=== PATIENT | female | born 1945 | race Caucasian/White ===

== ENCOUNTER 2018-10-21 15:47 | Inpatient (IN) | payer MEDICARE, MEDICAID ==
--- NOTE | 2018-10-21 16:08 | C.PDOC ---
History Of Present Illness 72 year old female is brought to the ED by family for evaluation of slurred speech and bilateral leg weakness since yesterday at 18:00. Family states that when patient tries to walk, she falls over because her legs are weak. Denies any other symptoms. Time Seen by Provider: 10/21/18 15:55 Chief Complaint (Nursing): Weakness/Neurological Deficit History Per: Patient, Family History/Exam Limitations: no limitations Onset/Duration Of Symptoms: Days (1) Current Symptoms Are (Timing): Still Present - Symptoms Of CVA Associated Symptoms: Impaired Speech, Decreased Ability To Walk Character Of Deficits: Left: Weakness, Right: Weakness, Leg: Weakness Past Medical History Reviewed: Historical Data, Nursing Documentation, Vital Signs Vital Signs: Last Vital Signs Temp 98.8 F 10/21/18 16:01 Pulse 88 10/21/18 16:01 Resp 20 10/21/18 16:01 BP 145/74 10/21/18 16:01 Pulse Ox 98 10/21/18 16:01 - Medical History PMH: HTN, Hypercholesterolemia, Hypothyroidism, Chronic Kidney Disease Other Surgeries: hx of surgeries - [employer] Procedures GROUP PSYCHOTHERAPY (12/14/16) INDIVIDUAL PSYCHOTHERAPY, SUPPORTIVE (12/14/16) Family History: States: No Known Family Hx - Social History Hx Alcohol Use: No Hx Substance Use: No - Immunization History Hx Tetanus Toxoid Vaccination: No Hx Influenza Vaccination: No Hx Pneumococcal Vaccination: No Review Of Systems Eyes: Negative for: Vision Change Genitourinary: Negative for: Incontinence Neurological: Positive for: Weakness (b/l legs ), Change in Speech (slurred speech ). Negative for: Headache Physical Exam - Physical Exam Appears: Non-toxic Skin: Warm, Dry, No Rash Head: Atraumatic, Normacephalic Eye(s): bilateral: Normal Inspection, PERRL, EOMI Ear(s): Bilateral: Normal Nose: Normal Oral Mucosa: Moist Neck: Supple Chest: Symmetrical Cardiovascular: Rhythm Regular Respiratory: Normal Breath Sounds, No Rales, No Rhonchi, No Wheezing Gastrointestinal/Abdominal: Soft, No Tenderness Extremity: No Pedal Edema, No Deformity, No Swelling Neurological/Psych: Oriented x3, Normal Speech, Normal Cognition, Normal Sensation (grossly intact ), Other ((-) facial droop, (-) weakness in facial muscles, 5/5 coordination b/l fingers to nose, 5/5 strength of b/l arms, 3/5 strength to b/l legs ) ED Course And Treatment - Laboratory Results Result Diagrams: 10/22/18 06:31 10/22/18 06:31 ECG: Interpreted By Me, Viewed By Me ECG Rhythm: Sinus Rhythm Interpretation Of EC:28 Normal axis. Normal intervals. No ST elevations Rate From EC O2 Sat by Pulse Oximetry: 98 (RA) Pulse Ox Interpretation: Normal - Other Rad CXR X-Ray: Viewed By Me, Read By Radiologist Interpretation: Accession No. : [id number]. Patient Name / ID : MADELINE Dunbar / [id number]. Exam Date : 10/21/2018 16:34:03 ( Approved ). Study Comment : Sex / Age : F / 72Y. Creator : Kelly De Santiago. Dictator : Raffi Mayorga MD. Ship Joiner : Lens Inserter : Raffi Mayorga MD. Approver2 : Report Date : 10/21/2018 16:36:29. My Comment : . Date of service: 10/21/2018. HISTORY: Code Stroke. COMPARISON: 12/09/2016. FINDINGS: LUNGS: No active pulmonary disease. PLEURA: No significant pleural effusion identified, no pneumothorax apparent. CARDIOVASCULAR: No radiographic findings to suggest acute or significant cardiovascular disease. Atherosclerotic calcifications identified primarily aortic arch. OSSEOUS STRUCTURES: No significant abnormalities. VISUALIZED UPPER ABDOMEN: Normal. OTHER FINDINGS: None. IMPRESSION: No active disease. No significant interval change compared to the prior examination(s). - CT Scan/US CT head Other Rad Studies (CT/US): Read By Radiologist, Radiology Report Reviewed CT/US Interpretation: Accession No. : [id number]. Patient Name / ID : MADELINE Dunbar / [id number]. Exam Date : 10/21/2018 16:09:52 ( Approved ). Study Comment : Sex / Age : F / 72Y. Creator : Cammie Cross. Dictator : Susi Blood MD. Ship Joiner : Lens Inserter : Susi Blood MD. Approver2 : Report Date : 10/21/2018 16:14:28. My Comment : . Date of service: 10/21/2018. PROCEDURE: CT HEAD WITHOUT CONTRAST. HISTORY: Code Stroke. COMPARISON: None available. TECHNIQUE: Axial computed tomography images were obtained through the head/brain without intravenous contrast. Radiation dose: Total exam DLP = 928.2 mGy-cm. This CT exam was performed using one or more of the following dose reduction techniques: Automated exposure control, adjustment of the mA and/or kV according to patient size, and/or use of iterative reconstruction technique. FINDINGS: HEMORRHAGE: No intracranial hemorrhage. BRAIN: There are mild chronic microangiopathic changes. There is no mass, mass effect or abnormal extra-axial fluid collection. There is no territorial infarction. The midline sagittal structures are normal.There are coarse atherosclerotic calcifications in the cavernous carotid arteries. VENTRICLES: There is mild age-related global parenchymal volume loss and proportionate enlargement of the ventricles and cortical sulci. CALVARIUM: There is no calvarial fracture or extracranial soft tissue swelling. PARANASAL SINUSES: Predominantly clear. MASTOID AIR CELLS: Predominantly clear. OTHER FINDINGS: None. IMPRESSION: No acute intracranial abnormality. If there is a persistent focal neurologic deficit and an ongoing clinical concern for acute infarction, an MRI of the brain without intravenous contrast would be a more sensitive modality for evaluation of hyperacute/acute ischemic infarction. CTA head/neck Other Rad Studies (CT/US): Read By Radiologist, Radiology Report Reviewed CT/US Interpretation: Accession No. : [id number]. Patient Name / ID : MADELINE Dunbar / [id number]. Exam Date : 10/21/2018 16:15:26 ( Approved ). Study Comment : Sex / Age : F / 72Y. Creator : Cammie Cross. Dictator : Anny Pringle MD. Ship Joiner : Lens Inserter : Anny Pringle MD. Approver2 : Report Date : 10/21/2018 16:30:31. My Comment : . Date of service: 10/21/2018. PROCEDURE: CT Angiography of the neck and head with contrast. HISTORY: slurred speech and weakness. COMPARISON: None. TECHNIQUE: Contiguous axial images of the neck and head were obtained from the level of the skull-base to the superior mediastinum in the arteriographic phase of enhancement. Coronal and sagittal reformats or also generated. IV contrast dose: 100 mL of Visipaque 320. Radiation dose: Total exam DLP = 449.7 mGy-cm. This CT exam was performed using one or more of the following dose reduction techniques: Automated exposure control, adjustment of the mA and/or kV according to patient size, and/or use of iterative reconstru ction technique. FINDINGS: RIGHT CAROTID ARTERIES: Common Carotid Artery: Tortuous has a normal caliber and shape otherwise. Carotid Bifurcation: Small calcification without evidence of significant stenosis. Internal Carotid Artery:Normal. External Carotid Artery (proximal branches): Normal. LEFT CAROTID ARTERIES: Common Carotid Artery: Tortuous and normal in caliber. Carotid Bifurcation: Foci of atherosclerotic calcification noted without significant stenosis. Internal Carotid Artery:Focal approximately 60 percent stenosis seen at the proximal portion of the left internal carotid artery. External Carotid Artery (proximal branches): Normal. VERTEBRAL ARTERIES: Right Vertebral Artery: Normal. Left Vertebral Artery: Normal. OTHER FINDINGS: Foci of atherosclerotic calcification. Mildly enlarged submental and right upper neck lymph nodes noted. Large heterogeneous thyroid gland with right lobe larger than the left extending to the thoracic inlet suggestive of thyroid goit er. INTERNAL CEREBRAL ARTERIES: The petrous cavernous and supraclinoid segments are patent. There is diffuse atherosclerotic calcification noted in the supraclinoid and the internal carotid terminus bilaterally without CT evidence of significant stenosis. ANTERIOR CEREBRAL ARTERIES: Unremarkable. A1 and A2 segments are widely patent. Smaller distal branches unremarkable, as visualized. MIDDLE CEREBRAL ARTERIES: Short segment of mild approximately 50 percent stenosis noted at the distal M1 of the right middle cerebral artery. The left middle cerebral artery demonstrate no focal stenosis. POSTERIOR CIRCULATION: Basilar Artery: Unremarkable. Distal Vertebral Arteries: Unremarkable. Posterior Cerebral Arteries: There is a origin of the right posterior cerebral artery supplies mainly from prominent right posterior communicated artery. Posterior Inferior Cerebellar Arteries: Unremarkable. ANEURYSM/ VASCULAR MALFORMATIONS: None. IMPRESSION: Foci of atherosclerotic calcification. Focal approximately 60 percent stenosis at the proximal left internal carotid artery. Short segment of mild approximately 50 percent stenosis seen at the distal portion of the M1 segment of right middle cerebral artery. Mild cervical lymphadenopathy right more than left. Critical Care Time - Critical Care Note Total Time (in mins): 40 Documented critical care: time excludes all time spent performing seperately billable procedures. Medical Decision Making Medical Decision Making: Plan - CTA head/neck - CT Head - EKG - Bloodwork - CXR - IV Fluids 1600- Code stroke called upon first evaluating patient given 23 hours of new neurological deficits- bilateral leg weakness and slurred speech. Spoke to radiology about CT results, no large infarct noted. 1628- Case discussed with Dr. Steen. Recommends giving aspirin, does not recommend tPA. Results discussed with patient and family. Will admit patient for further neurological evaluation. Patient and family amenable to admission. 1710- Case discussed with patient's PMD Dr. Vasquez who accepts patient to her service. Disposition - Disposition Disposition: HOSPITALIZED Disposition Time: 17:10 Condition: STABLE - Clinical Impression Clinical Impression: Slurred speech, Bilateral leg weakness, CVA (cerebral vascular accident) - Scribe Statement The provider has reviewed the documentation as recorded by the Scribe Chantell Aburto All medical record entries made by the Scribe were at my direction and personally dictated by me. I have reviewed the chart and agree that the record accurately reflects my personal performance of the history, physical exam, medical decision making, and the department course for this patient. I have also personally directed, reviewed, and agree with the discharge instructions and disposition. NIHSS Stroke Scale - Date/Time Evaluation Performed Date Performed: 10/21/18 Time Performed: 16:00 When Was NIHSS Performed: Code Stroke - How Severe is the Stroke Level of Consciousness: 0=Alert LOC to Questions: 0=Both comments correct LOC to commands: 0=Obeys both correctly Best Gaze: 0=Normal Visual: 0=No visual loss Facial: 0=Normal Motor Arm - Left: 0=No drift Motor Arm - Right: 0=No drift Motor Leg - Left: 2=Falls before 5 sec Motor Leg - Right: 2=Falls before 5 sec Limb Ataxia: 0=Absent Sensory: 0=Normal Best Language: 0=No aphasia Dysarthia: 1=Mild to moderate slurring Extinction & Inattention (Neglect): 0=Normal, no object Score: 5
[2018-10-21] MEDS ORDERED: Iodixanol 320 MG/ML 100 ML BOTTLE IV ONE (16:19)
--- NOTE | 2018-10-21 16:29 | CT ---
Date of service: 10/21/2018 PROCEDURE: CT HEAD WITHOUT CONTRAST. HISTORY: Code Stroke COMPARISON: None available. TECHNIQUE: Axial computed tomography images were obtained through the head/brain without intravenous contrast. Radiation dose: Total exam DLP = 928.2 mGy-cm. This CT exam was performed using one or more of the following dose reduction techniques: Automated exposure control, adjustment of the mA and/or kV according to patient size, and/or use of iterative reconstruction technique. FINDINGS: HEMORRHAGE: No intracranial hemorrhage. BRAIN: There are mild chronic microangiopathic changes. There is no mass, mass effect or abnormal extra-axial fluid collection. There is no territorial infarction. The midline sagittal structures are normal.There are coarse atherosclerotic calcifications in the cavernous carotid arteries. VENTRICLES: There is mild age-related global parenchymal volume loss and proportionate enlargement of the ventricles and cortical sulci. CALVARIUM: There is no calvarial fracture or extracranial soft tissue swelling. PARANASAL SINUSES: Predominantly clear. MASTOID AIR CELLS: Predominantly clear. OTHER FINDINGS: None. IMPRESSION: No acute intracranial abnormality. If there is a persistent focal neurologic deficit and an ongoing clinical concern for acute infarction, an MRI of the brain without intravenous contrast would be a more sensitive modality for evaluation of hyperacute/acute ischemic infarction. Mild chronic microangiopathic changes and mild age-related global parenchymal volume loss. Important findings were discussed with Dr. Chelo Gu in the ER on 10/21/2018 at 4:20 p.m.
[2018-10-21 16:30] LABS: BASO % 0.1 % (0.0-2.0); HEMOGLOBIN 11.4 g/dL (11.0-16.0); LYMPH # 1.5 K/uL (1.0-4.3); MEAN CELL VOLUME 87.6 fL (81.0-99.0); MEAN CORPUSCULAR HEMOGLOBIN 27.9 pg (27.0-31.0); MEAN CORPUSCULAR HGB CONC 31.8 g/dL (33.0-37.0); MEAN PLATELET VOLUME 8.9 fL (7.2-11.7); MONO # 0.3 K/uL (0.0-0.8); MONO % 6.2 % (0.0-10.0); NEUT # 3.4 K/uL (1.8-7.0); NEUT % 64.7 % (50.0-75.0); RBC 4.08 Mil/uL (3.80-5.20); RED CELL DISTRIBUTION WIDTH 16.8 % (11.5-14.5); WHITE BLOOD COUNT 5.3 K/uL (4.8-10.8)
[2018-10-21 16:36] LABS: INR 1.1; PROTHROMBIN TIME 12.5 SECONDS (9.7-12.2)
[2018-10-21 16:40] LABS: ALB/GLOB RATIO 1.1 (1.0-2.1); ALBUMIN 3.9 g/dL (3.5-5.0); ALT/SGPT 11 U/L (9-52); AST/SGOT 23 U/L (14-36); BLOOD UREA NITROGEN 56 mg/dL (7-17); CALCIUM 8.7 mg/dl (8.6-10.4); GFR NON-AFRICAN AMERICAN 12; HDL CHOLESTEROL 23 mg/dL (30-70)
--- NOTE | 2018-10-21 16:48 | RAD ---
Date of service: 10/21/2018 HISTORY: Code Stroke COMPARISON: 12/09/2016 FINDINGS: LUNGS: No active pulmonary disease. PLEURA: No significant pleural effusion identified, no pneumothorax apparent. CARDIOVASCULAR: No radiographic findings to suggest acute or significant cardiovascular disease. Atherosclerotic calcifications identified primarily aortic arch. OSSEOUS STRUCTURES: No significant abnormalities. VISUALIZED UPPER ABDOMEN: Normal. OTHER FINDINGS: None. IMPRESSION: No active disease. No significant interval change compared to the prior examination(s).
[2018-10-21] MEDS ORDERED: Sodium Chloride 0.9% 1,000 ML ONE (16:49)
[2018-10-21 16:51] LABS: LDL CHOLESTEROL 115 mg/dL (0-129)
[2018-10-21 16:57] VITALS: BMI 29.0
[2018-10-21] MEDS: Sodium Chloride 0.9% 1,000 ML IV SCH (16:57)
--- NOTE | 2018-10-21 17:01 | CT ---
Date of service: 10/21/2018 PROCEDURE: CT Angiography of the neck and head with contrast HISTORY: slurred speech and weakness COMPARISON: None. TECHNIQUE: Contiguous axial images of the neck and head were obtained from the level of the skull-base to the superior mediastinum in the arteriographic phase of enhancement. Coronal and sagittal reformats or also generated. IV contrast dose: 100 mL of Visipaque 320 Radiation dose: Total exam DLP = 449.7 mGy-cm. This CT exam was performed using one or more of the following dose reduction techniques: Automated exposure control, adjustment of the mA and/or kV according to patient size, and/or use of iterative reconstruction technique. FINDINGS: RIGHT CAROTID ARTERIES: Common Carotid Artery: Tortuous has a normal caliber and shape otherwise Carotid Bifurcation: Small calcification without evidence of significant stenosis Internal Carotid Artery:Normal. External Carotid Artery (proximal branches): Normal. LEFT CAROTID ARTERIES: Common Carotid Artery: Tortuous and normal in caliber. Carotid Bifurcation: Foci of atherosclerotic calcification noted without significant stenosis Internal Carotid Artery:Focal approximately 60 percent stenosis seen at the proximal portion of the left internal carotid artery External Carotid Artery (proximal branches): Normal. VERTEBRAL ARTERIES: Right Vertebral Artery: Normal. Left Vertebral Artery: Normal. OTHER FINDINGS: Foci of atherosclerotic calcification. Mildly enlarged submental and right upper neck lymph nodes noted. Large heterogeneous thyroid gland with right lobe larger than the left extending to the thoracic inlet suggestive of thyroid goiter. INTERNAL CEREBRAL ARTERIES: The petrous cavernous and supraclinoid segments are patent. There is diffuse atherosclerotic calcification noted in the supraclinoid and the internal carotid terminus bilaterally without CT evidence of significant stenosis ANTERIOR CEREBRAL ARTERIES: Unremarkable. A1 and A2 segments are widely patent. Smaller distal branches unremarkable, as visualized. MIDDLE CEREBRAL ARTERIES: Short segment of mild approximately 50 percent stenosis noted at the distal M1 of the right middle cerebral artery. The left middle cerebral artery demonstrate no focal stenosis. POSTERIOR CIRCULATION: Basilar Artery: Unremarkable. Distal Vertebral Arteries: Unremarkable. Posterior Cerebral Arteries: There is a origin of the right posterior cerebral artery supplies mainly from prominent right posterior communicated artery. Posterior Inferior Cerebellar Arteries: Unremarkable. ANEURYSM/ VASCULAR MALFORMATIONS: None. IMPRESSION: Foci of atherosclerotic calcification. Focal approximately 60 percent stenosis at the proximal left internal carotid artery. Short segment of mild approximately 50 percent stenosis seen at the distal portion of the M1 segment of right middle cerebral artery. Mild cervical lymphadenopathy right more than left.
[2018-10-21] MEDS ORDERED: Dextrose 5%/0.45% NS 1,000 ML IV SCH (20:00)
[2018-10-21] MEDS: (Novolog) Insulin Aspart, Recombinant 100 u/ml 10 ml vial SC SCH (21:50)
--- NOTE | 2018-10-22 00:05 | CP.PCM.CON ---
History of Present Illness - History of Present Illness History of Present Illness: 72 year old female is brought to the ED by family for evaluation of slurred speech and bilateral leg weakness since yesterday at 18:00. Family states that when patient tries to walk, she falls over because her legs are weak. Denies any other symptoms. Chief Complaint (Nursing): Weakness/Neurological Deficit History Per: Patient, Family History/Exam Limitations: no limitations Onset/Duration Of Symptoms: Days (1) Current Symptoms Are (Timing): Still Present Symptoms Of CVA Associated Symptoms: Impaired Speech, Decreased Ability To Walk Character Of Deficits: Left: Weakness, Right: Weakness, Leg: Weakness Past Medical History Reviewed: Historical Data, Nursing Documentation, Vital Signs Vital Signs: Last Vital Signs Temp 98.8 F 10/21/18 16:01 Pulse 88 10/21/18 16:01 Resp 20 10/21/18 16:01 BP 145/74 10/21/18 16:01 Pulse Ox 98 10/21/18 16:01 - Medical History PMH: HTN, Hypercholesterolemia, Hypothyroidism, Chronic Kidney Disease Other Surgeries: hx of surgeries - [facility] Procedures GROUP PSYCHOTHERAPY (12/14/16) INDIVIDUAL PSYCHOTHERAPY, SUPPORTIVE (12/14/16) Family History: States: No Known Family Hx - Social History Hx Alcohol Use: No Hx Substance Use: No - Immunization History Hx Tetanus Toxoid Vaccination: No Hx Influenza Vaccination: No Hx Pneumococcal Vaccination: No Review Of Systems Eyes: Negative for: Vision Change Genitourinary: Negative for: Incontinence Neurological: Positive for: Weakness (b/l legs ), Change in Speech (slurred speech ). Negative for: Headache Physical Exam - Physical Exam Appears: Non-toxic Skin: Warm, Dry, No Rash Head: Atraumatic, Normacephalic Eye(s): bilateral: Normal Inspection, PERRL, EOMI Ear(s): Bilateral: Normal Nose: Normal Oral Mucosa: Moist Neck: Supple Chest: Symmetrical Cardiovascular: Rhythm Regular Respiratory: Normal Breath Sounds, No Rales, No Rhonchi, No Wheezing Gastrointestinal/Abdominal: Soft, No Tenderness Extremity: No Pedal Edema, No Deformity, No Swelling Neurological/Psych: Oriented x3, Normal Speech, Normal Cognition, Normal Sensation (grossly intact ), Other ((-) facial droop, (-) weakness in facial muscles, 5/5 coordination b/l fingers to nose, 5/5 strength of b/l arms, 3/5 strength to b/l legs ) ECG Rhythm: Sinus Rhythm Interpretation Of EC:28 Normal axis. Normal intervals. No ST elevations Rate From EC O2 Sat by Pulse Oximetry: 98 (RA) Pulse Ox Interpretation: Normal CXR: IMPRESSION: No active disease. No significant interval change compared to the prior examination(s). - CT Scan/US ANTERIOR CEREBRAL ARTERIES: Unremarkable. A1 and A2 segments are widely patent. Smaller distal branches unremarkable, as visualized. CT head IMPRESSION: No acute intracranial abnormality. If there is a persistent focal neurological deficit and an ongoing clinical concern for acute infarction, an MRI of the brain without intravenous contrast would be a more sensitive modality for evaluation of hyperacute/acute ischemic infarction. ANTERIOR CEREBRAL ARTERIES: Unremarkable. A1 and A2 segments are widely patent. Smaller distal branches unremarkable, as visualized. MIDDLE CEREBRAL ARTERIES: Short segment of mild approximately 50 percent stenosis noted at the distal M1 of the right middle cerebral artery. The left middle cerebral artery demo nstrate no focal stenosis. POSTERIOR CIRCULATION: Basilar Artery: Unremarkable. Distal Vertebral Arteries: Unremarkable. Posterior Cerebral Arteries: There is a origin of the right posterior cerebral artery supplies mainly from prominent right posterior communicated artery. Posterior Inferior Cerebellar Arteries: Unremarkable. ANEURYSM/ VASCULAR MALFORMATIONS: None. IMPRESSION: Foci of atherosclerotic calcification. Focal approximately 60 percent stenosis at the proximal left internal carotid artery. Short segment of mild approximately 50 percent stenosis seen at the distal portion of the M1 segment of right middle cerebral artery. Mild cervical lymphadenopathy right more than left. IMPRESSION: Foci of atherosclerotic calcification. Focal approximately 60 percent stenosis at the proximal left internal carotid artery. Short segment of mild approximately 50 percent stenosis seen at the distal portion of the M1 segment of right middle cerebral artery. Mild cervical lymphadenopathy right more than left. Medical Decision Making Medical Decision Making: Plan - CTA head/neck - CT Head - EKG - Bloodwork - CXR - IV Fluids Disposition - Disposition Disposition: HOSPITALIZED NIHSS Stroke Scale - Date/Time Evaluation Performed Date Performed: 10/21/18 Time Performed: 16:00 When Was NIHSS Performed: Code Stroke - How Severe is the Stroke Level of Consciousness: 0=Alert LOC to Questions: 0=Both comments correct LOC to commands: 0=Obeys both correctly Best Gaze: 0=Normal Visual: 0=No visual loss Facial: 0=Normal Motor Arm - Left: 0=No drift Motor Arm - Right: 0=No drift Motor Leg - Left: 2=Falls before 5 sec Motor Leg - Right: 2=Falls before 5 sec Limb Ataxia: 0=Absent Sensory: 0=Normal Best Language: 0=No aphasia Dysarthia: 1=Mild to moderate slurring Extinction & Inattention (Neglect): 0=Normal, no object Score: 5 Past Patient History - Past Medical History & Family History Past Medical History?: Yes - Past Social History Smoking Status: Never Smoked - CARDIAC Hx Cardiac Disorders: Yes Hx Hypercholesterolemia: Yes Hx Hypertension: Yes - PULMONARY Hx Respiratory Disorders: No - NEUROLOGICAL Hx Neurological Disorder: Yes HX Cerebrovascular Accident: Yes Hx Dizziness: Yes - HEENT Hx HEENT Problems: No - RENAL Hx Chronic Kidney Disease: Yes - ENDOCRINE/METABOLIC Hx Endocrine Disorders: Yes Hx Hypothyroidism: Yes - HEMATOLOGICAL/ONCOLOGICAL Hx Blood Disorders: No - INTEGUMENTARY Hx Dermatological Problems: No - MUSCULOSKELETAL/RHEUMATOLOGICAL Hx Falls: No - GASTROINTESTINAL Hx Gastrointestinal Disorders: No - GENITOURINARY/GYNECOLOGICAL Hx Genitourinary Disorders: No - PSYCHIATRIC Hx Substance Use: No - SURGICAL HISTORY Hx Surgeries: No Other/Comment: HIP REPLACEMENT - DONT KNOW WHICH HIP - ANESTHESIA Hx Anesthesia: Yes Hx Anesthesia Reactions: No Meds Allergies/Adverse Reactions: Allergies Allergy/AdvReac Type Severity Reaction Status Date / Time No Known Allergies Allergy Unverified 10/21/18 16:03 - Medications Medications: Current Medications Aspirin (Aspirin Supp) 300 mg UT DAILY [facility] Heparin Sodium (Porcine) (Heparin) 5,000 units SC BID [facility] Last Admin: 10/21/18 21:21 Dose: Not Given Dextrose/Sodium Chloride (Dextrose 5%/0.45% Ns 1000 Ml) 1,000 mls @ 80 mls/hr IV .[id number] [facility] Last Admin: 10/21/18 20:00 Dose: 80 mls/hr Insulin Aspart (Novolog) 0 unit SC ACHS [facility]; Protocol Last Admin: 10/21/18 21:50 Dose: Not Given Physical Exam - Neurological Exam Additional comments: Mental Status: Awake, Alert, Oriented x 3, Normal memory X 3 Fluent coherent speech. Looks unhappy and depressed. Cranial Nerves II to XII: No Deficits. Motor: Normal tone Mild weakness of both lower Extremities. DTR 0/4 Toes are down going by plantar stimulation. Sensory: Reduced sensation peripherally in both UE s and LE s Cerebellar: Normal FNT Unable to perform HST or tandem walk on both sides. Stature and gait: Unable without help. Results - Vital Signs Recent Vital Signs: Last Vital Signs Temp 98.4 F 10/21/18 16:06 Pulse 80 10/21/18 17:27 Resp 20 10/21/18 17:27 BP 114/67 10/21/18 17:27 Pulse Ox 98 10/21/18 18:38 - Labs Result Diagrams: 10/22/18 06:31 10/22/18 06:31 Labs: Laboratory Results - last 24 hr 10/21/18 10/21/18 10/21/18 15:57 16:23 16:23 WBC 5.3 RBC 4.08 Hgb 11.4 Hct 35.7 MCV 87.6 MCH 27.9 MCHC 31.8 L RDW 16.8 H Plt Count 310 D MPV 8.9 Neut % (Auto) 64.7 Lymph % (Auto) 29.0 [place] % (Auto) 6.2 Eos % (Auto) 0.0 Baso % (Auto) 0.1 Neut # (Auto) 3.4 Lymph # (Auto) 1.5 [place] # (Auto) 0.3 Eos # (Auto) 0.0 Baso # (Auto) 0.0 PT 12.5 H INR 1.1 APTT 31 Sodium Potassium Chloride Carbon Dioxide Anion Gap BUN Creatinine Est GFR ( Amer) Est GFR (Non-Af Amer) POC Glucose (mg/dL) 213 H Random Glucose Hemoglobin A1c Calcium Total Bilirubin AST ALT Alkaline Phosphatase Troponin I Total Protein Albumin Globulin Albumin/Globulin Ratio Triglycerides Cholesterol LDL Cholesterol Direct HDL Cholesterol Blood Type Antibody Screen 10/21/18 10/21/18 10/21/18 16:23 16:23 16:23 WBC RBC Hgb Hct MCV MCH MCHC RDW Plt Count MPV Neut % (Auto) Lymph % (Auto) [place] % (Auto) Eos % (Auto) Baso % (Auto) Neut # (Auto) Lymph # (Auto) [place] # (Auto) Eos # (Auto) Baso # (Auto) PT INR APTT Sodium 136 Potassium 5.9 H Chloride 102 Carbon Dioxide 19 L Anion Gap 21 H BUN 56 H Creatinine 3.7 H Est GFR ( Amer) 14 Est GFR (Non-Af Amer) 12 POC Glucose (mg/dL) Random Glucose 230 H D Hemoglobin A1c 6.5 Calcium 8.7 Total Bilirubin 0.4 AST 23 ALT 11 Alkaline Phosphatase 67 Troponin I < 0.0120 Total Protein 7.5 Albumin 3.9 Globulin 3.6 Albumin/Globulin Ratio 1.1 Triglycerides 369 H D Cholesterol 184 LDL Cholesterol Direct 115 HDL Cholesterol 23 L Blood Type AB POSITIVE Antibody Screen Negative 10/21/18 21:47 WBC RBC Hgb Hct MCV MCH MCHC RDW Plt Count MPV Neut % (Auto) Lymph % (Auto) [place] % (Auto) Eos % (Auto) Baso % (Auto) Neut # (Auto) Lymph # (Auto) [place] # (Auto) Eos # (Auto) Baso # (Auto) PT INR APTT Sodium Potassium Chloride Carbon Dioxide Anion Gap BUN Creatinine Est GFR ( Amer) Est GFR (Non-Af Amer) POC Glucose (mg/dL) 112 H Random Glucose Hemoglobin A1c Calcium Total Bilirubin AST ALT Alkaline Phosphatase Troponin I Total Protein Albumin Globulin Albumin/Globulin Ratio Triglycerides Cholesterol LDL Cholesterol Direct HDL Cholesterol Blood Type Antibody Screen Assessment & Plan (1) LOUIE (acute kidney injury) Status: Acute Priority: High (2) Atrial fibrillation with RVR Status: Acute (3) Congestive cardiac failure Status: Acute (4) Depressed Status: Acute (5) Dyspnea Status: Acute Priority: Medium (6) Hyperglycemia Status: Acute Priority: High (7) Renal insufficiency Status: Acute (8) UTI (urinary tract infection) Status: Acute (9) CVA (cerebral vascular accident) Assessment and Plan: CVA vs TIA She needs a repeat of her neuroimaging CT brain was negative. Work up for CVA Status: Acute (10) Seizures Assessment and Plan: R/O Seizures Work up for Seizures. Status: Acute (11) Bilateral leg weakness Assessment and Plan: R/O LS Radiculopathy. R/O old Hip surgery as a cause may need Orthopedics consult may need MRI LS spine Status: Acute
[2018-10-22] MEDS ORDERED: hydrOXYzine HCl 25 mg/ml Inj IM ONE (01:41)
[2018-10-22 06:40] LABS: BASO % 0.2 % (0.0-2.0); HEMOGLOBIN 10.3 g/dL (11.0-16.0); LYMPH % 46.4 % (20.0-40.0); MEAN CELL VOLUME 86.6 fL (81.0-99.0); MEAN CORPUSCULAR HEMOGLOBIN 28.1 pg (27.0-31.0); MEAN CORPUSCULAR HGB CONC 32.5 g/dL (33.0-37.0); MONO # 0.4 K/uL (0.0-0.8); MONO % 9.3 % (0.0-10.0); NEUT # 1.9 K/uL (1.8-7.0); NEUT % 44.1 % (50.0-75.0); NRBC % 0.1 % (0.0-2.0); RBC 3.65 Mil/uL (3.80-5.20); WHITE BLOOD COUNT 4.2 K/uL (4.8-10.8)
[2018-10-22 06:57] LABS: ALBUMIN 3.4 g/dL (3.5-5.0); CALCIUM 8.3 mg/dl (8.6-10.4)
[2018-10-22] MEDS: (Novolog) Insulin Aspart, Recombinant 100 u/ml 10 ml vial SC SCH ×4 (08:00→21:38)
--- NOTE | 2018-10-22 11:21 | CP.PCM.HP ---
History of Present Illness - History of Present Illness History of Present Illness: pt admited from ed came in for slured speech leg weekness fals unable to walk Present on Admission - Present on Admission Any Indicators Present on Admission: Yes Review of Systems - Review of Systems Systems not reviewed;Unavailable: Acuity of Condition - Constitutional Constitutional: Fatigue, Frequent Falls - EENT Eyes: As Per HPI Ears: As Per HPI Nose/Mouth/Throat: As Per HPI - Breasts Breasts: As Per HPI - Cardiovascular Cardiovascular: As Per HPI - Respiratory Respiratory: As Per HPI - Gastrointestinal Additional comments: no apetite failed swallow evaluation - Genitourinary Additional comments: renal failiur - Reproductive: Female Reproductive:Female: As Per HPI, Post Menopausal - Menstruation Menstruation: Post Menopausal - Musculoskeletal Musculoskeletal: Abnormal Gait, Muscle Weakness, Numbness Additional comments: lower extweekness - Integumentary Integumentary: As Per HPI - Neurological Additional comments: dysarthria slured speech canot swallow - Psychiatric Psychiatric: As Per HPI - Endocrine Additional Comments: dm - Hematologic/Lymphatic Hematologic: As Per HPI Additional comments: aneamia Past Patient History - Past Medical History & Family History Past Medical History?: Yes - Past Social History Smoking Status: Never Smoked - CARDIAC Hx Cardiac Disorders: Yes Hx Hypercholesterolemia: Yes Hx Hypertension: Yes - PULMONARY Hx Respiratory Disorders: No - NEUROLOGICAL Hx Neurological Disorder: Yes HX Cerebrovascular Accident: Yes Hx Dizziness: Yes - HEENT Hx HEENT Problems: No - RENAL Hx Chronic Kidney Disease: Yes - ENDOCRINE/METABOLIC Hx Endocrine Disorders: Yes Hx Hypothyroidism: Yes - HEMATOLOGICAL/ONCOLOGICAL Hx Blood Disorders: No - INTEGUMENTARY Hx Dermatological Problems: No - MUSCULOSKELETAL/RHEUMATOLOGICAL Hx Falls: No - GASTROINTESTINAL Hx Gastrointestinal Disorders: No - GENITOURINARY/GYNECOLOGICAL Hx Genitourinary Disorders: No - PSYCHIATRIC Hx Substance Use: No - SURGICAL HISTORY Hx Surgeries: No Other/Comment: HIP REPLACEMENT - DONT KNOW WHICH HIP - ANESTHESIA Hx Anesthesia: Yes Hx Anesthesia Reactions: No Meds Allergies/Adverse Reactions: Allergies Allergy/AdvReac Type Severity Reaction Status Date / Time No Known Allergies Allergy Unverified 10/21/18 16:03 Physical Exam - Constitutional Appears: In Acute Distress - Head Exam Head Exam: ATRAUMATIC - Eye Exam Eye Exam: Normal appearance - ENT Exam ENT Exam: Mucous Membranes Moist - Neck Exam Neck exam: Positive for: Full Rom - Respiratory Exam Respiratory Exam: Clear to Auscultation Bilateral - Cardiovascular Exam Cardiovascular Exam: REGULAR RHYTHM - GI/Abdominal Exam GI & Abdominal Exam: Normal Bowel Sounds - Rectal Exam Rectal Exam: NORMAL INSPECTION - Exam Exam: NORMAL INSPECTION - Extremities Exam Additional comments: lower ext weekness - Back Exam Back exam: NORMAL INSPECTION - Neurological Exam Neurological exam: Abnormal Gait Additional comments: dysarthria canot swallow - Psychiatric Exam Psychiatric exam: Normal Affect - Skin Skin Exam: Pallor Results - Vital Signs Recent Vital Signs: Last Vital Signs Temp 98.5 F 10/22/18 07:00 Pulse 79 10/22/18 07:00 Resp 20 10/22/18 07:00 BP 107/68 10/22/18 07:00 Pulse Ox 96 10/22/18 07:00 - Labs Result Diagrams: 10/22/18 06:31 10/22/18 06:31 Labs: Laboratory Results - last 24 hr 10/21/18 10/21/18 10/21/18 15:57 16:23 16:23 WBC 5.3 RBC 4.08 Hgb 11.4 Hct 35.7 MCV 87.6 MCH 27.9 MCHC 31.8 L RDW 16.8 H Plt Count 310 D MPV 8.9 Neut % (Auto) 64.7 Lymph % (Auto) 29.0 [place] % (Auto) 6.2 Eos % (Auto) 0.0 Baso % (Auto) 0.1 Neut # (Auto) 3.4 Lymph # (Auto) 1.5 [place] # (Auto) 0.3 Eos # (Auto) 0.0 Baso # (Auto) 0.0 PT 12.5 H INR 1.1 APTT 31 Sodium Potassium Chloride Carbon Dioxide Anion Gap BUN Creatinine Est GFR ( Amer) Est GFR (Non-Af Amer) POC Glucose (mg/dL) 213 H Random Glucose Hemoglobin A1c Calcium Total Bilirubin AST ALT Alkaline Phosphatase Troponin I Total Protein Albumin Globulin Albumin/Globulin Ratio Triglycerides Cholesterol LDL Cholesterol Direct HDL Cholesterol Vitamin B12 25-OH Vitamin D Total TSH 3rd Generation Blood Type Antibody Screen 10/21/18 10/21/18 10/21/18 16:23 16:23 16:23 WBC RBC Hgb Hct MCV MCH MCHC RDW Plt Count MPV Neut % (Auto) Lymph % (Auto) [place] % (Auto) Eos % (Auto) Baso % (Auto) Neut # (Auto) Lymph # (Auto) [place] # (Auto) Eos # (Auto) Baso # (Auto) PT INR APTT Sodium 136 Potassium 5.9 H Chloride 102 Carbon Dioxide 19 L Anion Gap 21 H BUN 56 H Creatinine 3.7 H Est GFR ( Amer) 14 Est GFR (Non-Af Amer) 12 POC Glucose (mg/dL) Random Glucose 230 H D Hemoglobin A1c 6.5 Calcium 8.7 Total Bilirubin 0.4 AST 23 ALT 11 Alkaline Phosphatase 67 Troponin I < 0.0120 Total Protein 7.5 Albumin 3.9 Globulin 3.6 Albumin/Globulin Ratio 1.1 Triglycerides 369 H D Cholesterol 184 LDL Cholesterol Direct 115 HDL Cholesterol 23 L Vitamin B12 25-OH Vitamin D Total TSH 3rd Generation Blood Type AB POSITIVE Antibody Screen Negative 10/21/18 10/22/18 10/22/18 21:47 06:04 06:31 WBC RBC Hgb Hct MCV MCH MCHC RDW Plt Count MPV Neut % (Auto) Lymph % (Auto) [place] % (Auto) Eos % (Auto) Baso % (Auto) Neut # (Auto) Lymph # (Auto) [place] # (Auto) Eos # (Auto) Baso # (Auto) PT INR APTT Sodium 135 Potassium 5.1 Chloride 104 Carbon Dioxide 20 L Anion Gap 16 BUN 53 H Creatinine 3.0 H Est GFR ( Amer) 18 Est GFR (Non-Af Amer) 15 POC Glucose (mg/dL) 112 H 74 Random Glucose 86 D Hemoglobin A1c Calcium 8.3 L Total Bilirubin 0.4 AST 28 ALT 13 Alkaline Phosphatase 58 Troponin I Total Protein 6.9 Albumin 3.4 L Globulin 3.5 Albumin/Globulin Ratio 1.0 Triglycerides 269 H D Cholesterol 159 LDL Cholesterol Direct 106 HDL Cholesterol 19 L Vitamin B12 378 25-OH Vitamin D Total TSH 3rd Generation 2.33 Blood Type Antibody Screen 10/22/18 10/22/18 06:31 06:31 WBC 4.2 L RBC 3.65 L Hgb 10.3 L Hct 31.6 L MCV 86.6 MCH 28.1 MCHC 32.5 L RDW 17.0 H Plt Count 279 MPV 9.0 Neut % (Auto) 44.1 L Lymph % (Auto) 46.4 H [place] % (Auto) 9.3 Eos % (Auto) 0.0 Baso % (Auto) 0.2 Neut # (Auto) 1.9 Lymph # (Auto) 2.0 [place] # (Auto) 0.4 Eos # (Auto) 0.0 Baso # (Auto) 0.0 PT INR APTT Sodium Potassium Chloride Carbon Dioxide Anion Gap BUN Creatinine Est GFR ( Amer) Est GFR (Non-Af Amer) POC Glucose (mg/dL) Random Glucose Hemoglobin A1c Calcium Total Bilirubin AST ALT Alkaline Phosphatase Troponin I Total Protein Albumin Globulin Albumin/Globulin Ratio Triglycerides Cholesterol LDL Cholesterol Direct HDL Cholesterol Vitamin B12 25-OH Vitamin D Total 63.2 TSH 3rd Generation Blood Type Antibody Screen Assessment & Plan - Assessment and Plan (Free Text) Assessment: ac cva ac dysarthia canot swallow weekness lower ext dm crf Plan: as per orders - Date & Time Date: 10/22/18 Time: 11:27
[2018-10-22] MEDS: Sodium Chloride 0.9% 1,000 ML IV SCH ×3 (12:50→21:38)
--- NOTE | 2018-10-22 12:55 | MRI ---
Date of service: 10/22/2018 PROCEDURE: MRI BRAIN WITHOUT CONTRAST HISTORY: R/O CVA COMPARISON: Noncontrast head CT from 10/21/2018 and MRI brain without contrast from 12/02/2016. TECHNIQUE: Multiplanar, multisequence MR images of the brain were obtained without intravenous contrast enhancement. FINDINGS: HEMORRHAGE: None DWI: No evidence of an acute or early subacute infarction. BRAIN PARENCHYMA: There are mild chronic microangiopathic changes. There is no mass, mass effect or abnormal extra-axial fluid collection. There is no territorial infarction. The midline sagittal structures are normal. VENTRICLES: There is mild age-related global parenchymal volume loss and proportionate enlargement of the ventricles and cortical sulci. CRANIUM: There is normal bone marrow signal pattern. ORBITS: Grossly unremarkable. PARANASAL SINUSES/MASTOIDS: Predominantly clear. VASCULAR SYSTEM: There are normal signal voids in the larger intracranial arteries. OTHER FINDINGS: None. IMPRESSION: No acute intracranial abnormality. Mild chronic microangiopathic changes and mild age-related global parenchymal volume loss.
--- NOTE | 2018-10-22 14:18 | MRI ---
Date of service: 10/22/2018 PROCEDURE: Magnetic Resonance Angiography Brain HISTORY: CVA vs TIA COMPARISON: None available. TECHNIQUE: 3D time of flight MR angiography of the intracranial arteries was performed. Rotating maximum intensity projection images were generated. FINDINGS: INTERNAL CAROTID ARTERIES: Normal flow related signal. The skull base, petrous, cavernous and supraclinoid segments are bilaterally widely patient. ANTERIOR CEREBRAL ARTERIES: Normal flow related signal. A1 and A2 segments are widely patent. Smaller distal branches unremarkable, as visualized. The right A1 segment is hypoplastic, an anatomic variant. MIDDLE CEREBRAL ARTERIES: Normal flow related signal. M1 and M2 segments are widely patent. Perisylvian branches grossly symmetric. POSTERIOR CIRCULATION: Basilar Artery: Normal flow related signal. Normal in caliber and widely patent. Distal Vertebral Arteries: Normal flow related signal. Widely patent. There is moderate short segment stenosis in the distal left vertebral artery proximal to the basilar confluence. Posterior Cerebral Arteries: Normal flow related signal. Widely patent. Posterior Inferior Cerebellar Arteries: Normal flow related signal. Widely patent. ANEURYSM/ VASCULAR MALFORMATIONS: None. OTHER FINDINGS: None. IMPRESSION: Short segment moderate narrowing of the left distal vertebral artery proximal to the basilar confluence. No evidence of occlusion or definite significant stenosis in the anterior circulation.
[2018-10-22] MEDS ORDERED: (Novolin R) Insulin Human Regular 100 units/ml vial SC SCH (16:30)
[2018-10-22 16:59] LABS: RAPID PLASMA REAGIN NONREACTIVE (NONREACTIVE)
--- NOTE | 2018-10-22 22:19 | CP.PCM.PN ---
Subjective - Date & Time of Evaluation Date of Evaluation: 10/22/18 Time of Evaluation: 22:05 - Subjective Subjective: Patient had MRI Brain, MRA Brain, Carotid Doppler, Normal TSH, mildly high Hb A1C. She still feels weakness of both legs and walks with help. Abnormal CTA Carotids showing 60 % stenosis on the left and 50 % stenosis on the right side. A Vascular surgery consult is needed. High Triglycerides She has a History of Tingling and numbness in both legs and feet and both UE s IMPRESSION of MRI Brain w ithout contrast: No acute intracranial abnormality. Mild chronic microangiopathic changes and mild age-related global parenchymal volume loss. IMPRESSION of MRA Brain without contrast: No acute intracranial abnormality. Mild chronic microangiopathic changes and mild age-related global parenchymal volume loss. Normal Carotid Doppler. Abnormal CTA Carotids. Due to her history of bilateral hip surgery she might need an Orthopedic Consult to R/O hip problems as a cause of her difficulty walking. Due to her history of tingling and numbness she needs an MRI of LS Spine Objective - Vital Signs/Intake and Output Vital Signs (last 24 hours): Temp Pulse Resp BP Pulse Ox 98.8 F 73 20 122/82 98 10/22/18 16:50 10/22/18 16:50 10/22/18 16:50 10/22/18 16:50 10/22/18 18:24 - Medications Medications: Current Medications Aspirin (Aspirin Supp) 300 mg AL DAILY [facility] Last Admin: 10/22/18 11:08 Dose: Not Given Heparin Sodium (Porcine) (Heparin) 5,000 units SC BID [facility] Last Admin: 10/22/18 17:34 Dose: 5,000 units Sodium Chloride (Sodium Chloride 0.9%) 1,000 mls @ 80 mls/hr IV .[id number] [facility] Last Admin: 10/22/18 21:38 Dose: 80 mls/hr Insulin Aspart (Novolog) 0 unit SC ACHS [facility]; Protocol Last Admin: 10/22/18 21:38 Dose: Not Given Zolpidem Tartrate (Ambien) 5 mg PO HS PRN PRN Reason: Insomnia Last Admin: 10/22/18 21:38 Dose: 5 mg - Labs Labs: 10/22/18 06:31 10/22/18 06:31 PT 12.5 SECONDS (9.7-12.2) H 10/21/18 16:23 INR 1.1 10/21/18 16:23 APTT 31 SECONDS (21-34) 10/21/18 16:23 Assessment and Plan (1) LOUIE (acute kidney injury) Status: Acute (2) Atrial fibrillation with RVR Status: Acute (3) Congestive cardiac failure Status: Acute (4) Depressed Status: Acute (5) Dyspnea Status: Acute (6) Hyperglycemia Status: Acute (7) Renal insufficiency Status: Acute (8) UTI (urinary tract infection) Status: Acute (9) CVA (cerebral vascular accident) Status: Acute (10) Seizures Status: Acute
[2018-10-23] MEDS: Sodium Chloride 0.9% 1,000 ML IV SCH ×2 (02:41→14:00)
--- NOTE | 2018-10-23 07:29 | CP.PCM.CON ---
History of Present Illness - History of Present Illness History of Present Illness: Vascular Surgery - Dr. Anton 72 yo F who presented to [facility] on 10/21 with b/l leg weakness and slurred speech. Pt had work-up for stroke and found to have a Left proximal internal carotid artery stenosis of 60% and a short segment of 50% stenosis in the distal r MCA. Vascular surgery was consulted for the carotid stenosis. Currently pt states that she has no symptoms. Her speech is clear but she is somewhat confused as to why she came to the hospital. She denies any leg weakness and is able to move all extremities with good strength. Pt denies any complaints at this time including SOB/Chest pain/Nausea/Vomiting/Blurred v ision/Numbness/Paresthesias/Weakness/Headache. PMH: HTN, HL, Hypothyroid, CKD PSH: Hip surgery NKDA Meds as per chart Review of Systems - Review of Systems All systems: reviewed and no additional remarkable complaints except (as per HPI) Past Patient History - Past Medical History & Family History Past Medical History?: Yes - Past Social History Smoking Status: Never Smoked - CARDIAC Hx Cardiac Disorders: Yes Hx Hypercholesterolemia: Yes Hx Hypertension: Yes - PULMONARY Hx Respiratory Disorders: No - NEUROLOGICAL Hx Neurological Disorder: Yes HX Cerebrovascular Accident: Yes Hx Dizziness: Yes - HEENT Hx HEENT Problems: No - RENAL Hx Chronic Kidney Disease: Yes - ENDOCRINE/METABOLIC Hx Endocrine Disorders: Yes Hx Hypothyroidism: Yes - HEMATOLOGICAL/ONCOLOGICAL Hx Blood Disorders: No - INTEGUMENTARY Hx Dermatological Problems: No - MUSCULOSKELETAL/RHEUMATOLOGICAL Hx Falls: No - GASTROINTESTINAL Hx Gastrointestinal Disorders: No - GENITOURINARY/GYNECOLOGICAL Hx Genitourinary Disorders: No - PSYCHIATRIC Hx Substance Use: No - SURGICAL HISTORY Hx Surgeries: No Other/Comment: HIP REPLACEMENT - DONT KNOW WHICH HIP - ANESTHESIA Hx Anesthesia: Yes Hx Anesthesia Reactions: No Meds Allergies/Adverse Reactions: Allergies Allergy/AdvReac Type Severity Reaction Status Date / Time No Known Allergies Allergy Unverified 10/21/18 16:03 - Medications Medications: Current Medications Aspirin (Aspirin Supp) 300 mg AL DAILY [facility] Last Admin: 10/22/18 11:08 Dose: Not Given Heparin Sodium (Porcine) (Heparin) 5,000 units SC BID [facility] Last Admin: 10/22/18 17:34 Dose: 5,000 units Sodium Chloride (Sodium Chloride 0.9%) 1,000 mls @ 80 mls/hr IV .[id number] [facility] Last Admin: 10/23/18 02:41 Dose: Not Given Insulin Aspart (Novolog) 0 unit SC ACHS [facility]; Protocol Last Admin: 10/22/18 21:38 Dose: Not Given Rosuvastatin Calcium (Crestor) 10 mg PO HS [facility] Zolpidem Tartrate (Ambien) 5 mg PO HS PRN PRN Reason: Insomnia Last Admin: 10/22/18 21:38 Dose: 5 mg Physical Exam - Constitutional Appears: Well, No Acute Distress - Head Exam Head Exam: ATRAUMATIC, NORMAL INSPECTION, NORMOCEPHALIC - Eye Exam Eye Exam: EOMI, Normal appearance Pupil Exam: NORMAL ACCOMODATION - Respiratory Exam Respiratory Exam: NORMAL BREATHING PATTERN. absent: Respiratory Distress - Cardiovascular Exam Cardiovascular Exam: REGULAR RHYTHM - Neurological Exam Neurological exam: Alert, CN II-XII Intact, Oriented x3 Additional comments: 5/5 strength b/l - Psychiatric Exam Psychiatric exam: Normal Affect, Normal Mood - Skin Skin Exam: Dry, Intact Results - Vital Signs Recent Vital Signs: Last Vital Signs Temp 98.4 F 10/22/18 23:10 Pulse 88 10/22/18 23:10 Resp 20 10/22/18 23:10 BP 134/71 10/22/18 23:10 Pulse Ox 95 10/22/18 23:10 - Labs Result Diagrams: 10/22/18 06:31 10/22/18 06:31 Labs: Laboratory Results - last 24 hr 10/22/18 10/22/18 10/22/18 06:04 06:31 06:31 POC Glucose (mg/dL) 74 Vitamin B12 378 RPR Nonreactive 10/22/18 10/22/18 10/22/18 12:35 15:52 20:59 POC Glucose (mg/dL) 215 H 94 151 H Vitamin B12 RPR 10/23/18 06:06 POC Glucose (mg/dL) 71 Vitamin B12 RPR Assessment & Plan - Assessment and Plan (Free Text) Assessment: 72 yo F admitted with b/l LE weakness and dysphagia, resolved, CTA with L proximal ICA stenosis of 60% -Continue workup for cause of symptoms -F/U Neurology regarding poss. TIA -Medical management -Will review duplex and CTA imaging -Further reccs as per Dr. Sloane Romo PGY4
[2018-10-23] MEDS: (Novolog) Insulin Aspart, Recombinant 100 u/ml 10 ml vial SC SCH ×4 (07:40→21:44)
--- NOTE | 2018-10-23 12:43 | CP.PCM.PN ---
Subjective - Date & Time of Evaluation Date of Evaluation: 10/23/18 Time of Evaluation: 12:40 - Subjective Subjective: pt speach mor cleare able to walk today and eate mri postive for segment narrow vertebral art Objective - Vital Signs/Intake and Output Vital Signs (last 24 hours): Temp Pulse Resp BP Pulse Ox 98.4 F 80 20 123/73 96 10/23/18 07:00 10/23/18 08:00 10/23/18 07:00 10/23/18 07:00 10/23/18 07:00 Intake and Output: 10/23/18 10/23/18 06:59 18:59 Intake Total 690 Balance 690 - Medications Medications: Current Medications Aspirin (Aspirin Supp) 300 mg TN DAILY [facility] Last Admin: 10/23/18 10:29 Dose: Not Given Heparin Sodium (Porcine) (Heparin) 5,000 units SC BID [facility] Last Admin: 10/23/18 10:22 Dose: 5,000 units Sodium Chloride (Sodium Chloride 0.9%) 1,000 mls @ 80 mls/hr IV .[id number] [facility] Last Admin: 10/23/18 02:41 Dose: Not Given Insulin Aspart (Novolog) 0 unit SC ACHS [facility]; Protocol Last Admin: 10/23/18 11:32 Dose: 2 units Rosuvastatin Calcium (Crestor) 10 mg PO HS [facility] Zolpidem Tartrate (Ambien) 5 mg PO HS PRN PRN Reason: Insomnia Last Admin: 10/22/18 21:38 Dose: 5 mg - Labs Labs: 10/22/18 06:31 10/22/18 06:31 PT 12.5 SECONDS (9.7-12.2) H 10/21/18 16:23 INR 1.1 10/21/18 16:23 APTT 31 SECONDS (21-34) 10/21/18 16:23 Assessment and Plan - Assessment and Plan (Free Text) Assessment: ac tia vertebral artery narrow will get vascular consult stat pt Plan: pt
--- NOTE | 2018-10-23 14:55 | CP.PCM.CON ---
History of Present Illness - History of Present Illness History of Present Illness: 72 yr old woman who was admitted due to severe dizziness and some presumed stroke. MRI brain was completed and shows no stroke, or hemorrhage. 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 There is no headache or weakness noted. After speaking with family, it was noted that the patient has been very depressed as of the last 3 mnths, and is now on several antidepressants. She does not have a dedicated psychiatrist as of now. There have been no suicidal ideations noted. She has not had any prior spells similar to this one. PMH/PSH : as above. FH/SH: no tobacco, no etoh. Has several children. From [place] All: nkda On exam: AAOx3. PERRL. CN 2-12 normal. Speech is slow but fluent. She can name and repeat. Follows 3 step commands. She has a pilrolling resting tremor No bradykinesia. Gait is normal, with no marche a petit pas. There is no postural instability, and her turn is slow but normal. She has normal facial expressions as well. +2 dtr ul and ll bl. Toes downgoing. No clonus. Past Patient History - Past Medical History & Family History Past Medical History?: Yes - Past Social History Smoking Status: Never Smoked - CARDIAC Hx Cardiac Disorders: Yes Hx Hypercholesterolemia: Yes Hx Hypertension: Yes - PULMONARY Hx Respiratory Disorders: No - NEUROLOGICAL Hx Neurological Disorder: Yes HX Cerebrovascular Accident: Yes Hx Dizziness: Yes - HEENT Hx HEENT Problems: No - RENAL Hx Chronic Kidney Disease: Yes - ENDOCRINE/METABOLIC Hx Endocrine Disorders: Yes Hx Hypothyroidism: Yes - HEMATOLOGICAL/ONCOLOGICAL Hx Blood Disorders: No - INTEGUMENTARY Hx Dermatological Problems: No - MUSCULOSKELETAL/RHEUMATOLOGICAL Hx Falls: No - GASTROINTESTINAL Hx Gastrointestinal Disorders: No - GENITOURINARY/GYNECOLOGICAL Hx Genitourinary Disorders: No - PSYCHIATRIC Hx Substance Use: No - SURGICAL HISTORY Hx Surgeries: No Other/Comment: HIP REPLACEMENT - DONT KNOW WHICH HIP - ANESTHESIA Hx Anesthesia: Yes Hx Anesthesia Reactions: No Meds Allergies/Adverse Reactions: Allergies Allergy/AdvReac Type Severity Reaction Status Date / Time No Known Allergies Allergy Unverified 10/21/18 16:03 - Medications Medications: Current Medications Aspirin (Aspirin) 325 mg PO DAILY [facility] Heparin Sodium (Porcine) (Heparin) 5,000 units SC BID [facility] Last Admin: 10/23/18 10:22 Dose: 5,000 units Sodium Chloride (Sodium Chloride 0.9%) 1,000 mls @ 80 mls/hr IV .[id number] [facility] Last Admin: 10/23/18 14:00 Dose: 80 mls/hr Insulin Aspart (Novolog) 0 unit SC ACHS [facility]; Protocol Last Admin: 10/23/18 11:32 Dose: 2 units Rosuvastatin Calcium (Crestor) 10 mg PO HS [facility] Zolpidem Tartrate (Ambien) 5 mg PO HS PRN PRN Reason: Insomnia Last Admin: 10/22/18 21:38 Dose: 5 mg Results - Vital Signs Recent Vital Signs: Last Vital Signs Temp 98.4 F 10/23/18 07:00 Pulse 80 10/23/18 08:00 Resp 20 10/23/18 07:00 BP 123/73 10/23/18 07:00 Pulse Ox 96 10/23/18 07:00 - Labs Result Diagrams: 10/22/18 06:31 10/22/18 06:31 Labs: Laboratory Results - last 24 hr 10/22/18 10/22/18 10/22/18 06:31 06:31 15:52 POC Glucose (mg/dL) 94 Hemoglobin A1c 6.6 H RPR Nonreactive 10/22/18 10/23/18 10/23/18 20:59 06:06 11:07 POC Glucose (mg/dL) 151 H 71 204 H Hemoglobin A1c RPR Assessment & Plan - Assessment and Plan (Free Text) Assessment: 72 yr old woman with severe dizziness which maybe secondary to carotid disease or viral issue. I will order CTA head and neck and follow Recommend aspirin and gait training. Thank you Dr. ojeda
--- NOTE | 2018-10-23 15:22 | CP.PCM.PN ---
Subjective - Date & Time of Evaluation Date of Evaluation: 10/23/18 Time of Evaluation: 14:00 - Subjective Subjective: patient is sitting in a chair, and doing well. Dizziness is resolved with no new findings noted. Discussed with nephew that 60% stenosis of ICA is not a strong surgical indication for CEA, as 70-89% is the criteria, but it may be considered. In addition, the MCA is only 50% stenosed and vertebral artery is patent. On exam: Neurological exam unchanged. Objective - Vital Signs/Intake and Output Vital Signs (last 24 hours): Temp Pulse Resp BP Pulse Ox 98.4 F 80 20 123/73 96 10/23/18 07:00 10/23/18 08:00 10/23/18 07:00 10/23/18 07:00 10/23/18 07:00 Intake and Output: 10/23/18 10/23/18 06:59 18:59 Intake Total 690 Balance 690 - Medications Medications: Current Medications Aspirin (Aspirin) 325 mg PO DAILY [facility] Heparin Sodium (Porcine) (Heparin) 5,000 units SC BID [facility] Last Admin: 10/23/18 10:22 Dose: 5,000 units Sodium Chloride (Sodium Chloride 0.9%) 1,000 mls @ 80 mls/hr IV .[id number] [facility] Last Admin: 10/23/18 14:00 Dose: 80 mls/hr Insulin Aspart (Novolog) 0 unit SC ACHS [facility]; Protocol Last Admin: 10/23/18 11:32 Dose: 2 units Rosuvastatin Calcium (Crestor) 10 mg PO HS [facility] Zolpidem Tartrate (Ambien) 5 mg PO HS PRN PRN Reason: Insomnia Last Admin: 10/22/18 21:38 Dose: 5 mg - Labs Labs: 10/22/18 06:31 10/22/18 06:31 PT 12.5 SECONDS (9.7-12.2) H 10/21/18 16:23 INR 1.1 10/21/18 16:23 APTT 31 SECONDS (21-34) 10/21/18 16:23 Assessment and Plan - Assessment and Plan (Free Text) Assessment: 72 y rold woman with dizziness that may be secondary to carotid stenosis, but as of now, does not have a stroke. I would agree with vascular consult but can be done outpatient. Plan: 1. aspirin and plavix. 2. Psychiatry consult outpatient. Thank you Dr. ojeda
--- NOTE | 2018-10-23 18:01 | CP.PCM.PN ---
Subjective - Date & Time of Evaluation Date of Evaluation: 10/23/18 Time of Evaluation: 17:52 - Subjective Subjective: She is improving and is walking to the bathroom. I spoke to Dr Sol Vasquez about her condition. She is interested in consulting Dr Anton for her vascular Surgery issue of 60% stenosis of the left Carotid Artery and her 50% Carotid artery stenosis seen on CTA. Regarding her old hip surgery, Dr Sol Vasquez thinks she is stable. and her inability to walk is not related to her old hip problems. Her Vital Signs are stable. Objective - Vital Signs/Intake and Output Vital Signs (last 24 hours): Temp Pulse Resp BP Pulse Ox 98.5 F 80 20 136/89 97 10/23/18 16:00 10/23/18 16:00 10/23/18 16:00 10/23/18 16:00 10/23/18 16:00 Intake and Output: 10/23/18 10/23/18 06:59 18:59 Intake Total 690 Balance 690 - Medications Medications: Current Medications Aspirin (Aspirin) 325 mg PO DAILY [facility] Heparin Sodium (Porcine) (Heparin) 5,000 units SC BID [facility] Last Admin: 10/23/18 10:22 Dose: 5,000 units Sodium Chloride (Sodium Chloride 0.9%) 1,000 mls @ 80 mls/hr IV .[id number] [facility] Last Admin: 10/23/18 14:00 Dose: 80 mls/hr Insulin Aspart (Novolog) 0 unit SC ACHS [facility]; Protocol Last Admin: 10/23/18 17:00 Dose: Not Given Rosuvastatin Calcium (Crestor) 10 mg PO HS [facility] Zolpidem Tartrate (Ambien) 5 mg PO HS PRN PRN Reason: Insomnia Last Admin: 10/22/18 21:38 Dose: 5 mg - Labs Labs: 10/22/18 06:31 10/22/18 06:31 PT 12.5 SECONDS (9.7-12.2) H 10/21/18 16:23 INR 1.1 10/21/18 16:23 APTT 31 SECONDS (21-34) 10/21/18 16:23 Assessment and Plan (1) LOUIE (acute kidney injury) Status: Acute (2) Atrial fibrillation with RVR Status: Acute (3) Congestive cardiac failure Status: Acute (4) Depressed Status: Acute (5) Dyspnea Status: Acute (6) Hyperglycemia Status: Acute (7) Renal insufficiency Status: Acute (8) UTI (urinary tract infection) Status: Acute (9) CVA (cerebral vascular accident) Status: Acute (10) Seizures Status: Acute (11) Bilateral leg weakness Status: Acute
[2018-10-24] MEDS: Sodium Chloride 0.9% 1,000 ML IV SCH ×2 (03:20→03:50)
[2018-10-24] MEDS: (Novolog) Insulin Aspart, Recombinant 100 u/ml 10 ml vial SC SCH ×4 (07:35→22:04)
--- NOTE | 2018-10-24 08:14 | CARD ---
APPROVED REPORT Date of service: 10/21/2018 EKG Measurement Heart [id number] <Conclusion> Normal sinus rhythm Normal ECG
--- NOTE | 2018-10-24 08:26 | CP.PCM.PN ---
Subjective - Date & Time of Evaluation Date of Evaluation: 10/24/18 Time of Evaluation: 06:50 - Subjective Subjective: Vascular Surgery Progress note. Dr. Anton Pt seen and examined at bedside. No acute events overnight. Denies any neurological symptoms at this time. Equal strong muscle strength in all 4 extremities. No new complaints. Objective - Vital Signs/Intake and Output Vital Signs (last 24 hours): Temp Pulse Resp BP Pulse Ox 97.4 F L 91 H 20 144/79 99 10/24/18 07:00 10/24/18 07:00 10/24/18 07:00 10/24/18 07:00 10/24/18 07:00 - Medications Medications: Current Medications Aspirin (Aspirin) 325 mg PO DAILY [facility] Heparin Sodium (Porcine) (Heparin) 5,000 units SC BID [facility] Last Admin: 10/23/18 19:00 Dose: 5,000 units Sodium Chloride (Sodium Chloride 0.9%) 1,000 mls @ 80 mls/hr IV .[id number] [facility] Last Admin: 10/24/18 03:50 Dose: 80 mls/hr Insulin Aspart (Novolog) 0 unit SC ACHS [facility]; Protocol Last Admin: 10/23/18 21:44 Dose: Not Given Rosuvastatin Calcium (Crestor) 10 mg PO HS [facility] Last Admin: 10/23/18 22:36 Dose: 10 mg Zolpidem Tartrate (Ambien) 5 mg PO HS PRN PRN Reason: Insomnia Last Admin: 10/23/18 21:04 Dose: 5 mg - Labs Labs: 10/22/18 06:31 10/22/18 06:31 PT 12.5 SECONDS (9.7-12.2) H 10/21/18 16:23 INR 1.1 10/21/18 16:23 APTT 31 SECONDS (21-34) 10/21/18 16:23 - Constitutional Appears: Well, Non-toxic, No Acute Distress - Head Exam Head Exam: ATRAUMATIC, NORMAL INSPECTION, NORMOCEPHALIC - Eye Exam Eye Exam: EOMI. absent: Scleral icterus - Respiratory Exam Respiratory Exam: NORMAL BREATHING PATTERN. absent: Accessory Muscle Use, Respiratory Distress - Extremities Exam Extremities Exam: Normal Inspection. absent: Calf Tenderness - Neurological Exam Neurological Exam: Alert, Awake Neuro motor strength exam: Left Upper Extremity: 5, Right Upper Extremity: 5, Left Lower Extremity: 5, Right Lower Extremity: 5 - Skin Skin Exam: Dry, Intact, Normal Color, Warm Assessment and Plan - Assessment and Plan (Free Text) Assessment: 72yo F with left carotid stenosis. Plan: - No vascular surgery intervention warranted at this time - Continue medical management as per primary team Further recs as per Dr. Sloane Giron PGY2 Surgery
--- NOTE | 2018-10-24 13:05 | VASCLAB ---
Date of service: 10/22/2018 PROCEDURE: Carotid Duplex Exam. HISTORY: Slurred speech, leg weakness COMPARISON: None available. TECHNIQUE: Grayscale and duplex Doppler evaluation of the cervical carotid and vertebral arteries were performed. The common carotid, carotid bifurcations and cervical Internal Carotid Artery (ICA) and proximal External Carotid Artery (ECA) were evaluated. The vertebral arteries were evaluated for gross patency and flow direction. Report prepared by BRANDY Atwood FINDINGS: RIGHT CAROTID ARTERIES: 1. Common Carotid Artery: No significant focal plaque formation of the right common carotid artery. Maximum Peak Systolic velocity: 68 cm/sec: End-diastolic velocity 9 cm/sec. 2. Carotid Bifurcation: plaque formation. Maximum Peak Systolic velocity: 38 cm/sec: End-diastolic velocity 10 cm/sec. 3. Internal Carotid Artery: Plaque description: 3.1. Proximal Segment: Peak systolic velocity 38 cm/sec: End-diastolic velocity 13 cm/sec - % stenosis 0-15% 3.2. Middle Segment: Peak systolic velocity 89 cm/sec: End-diastolic velocity 40 cm/sec - % stenosis 0-15% 3.3. Distal Segment: Peak systolic velocity 62 cm/sec: End-diastolic velocity 25 cm/sec - % stenosis 0-15% 4. External Carotid Artery: No significant focal plaque formation. Peak systolic velocity 81 cm/sec 5. ICA/CCA Ratio: 1.6 LEFT CAROTID ARTERIES: 1. Common Carotid Artery: No significant focal plaque formation of the left common carotid artery. Maximum Peak Systolic velocity: 52 cm/sec: End-diastolic velocity 9 cm/sec. 2. Carotid Bifurcation: Minimal calcific plaque formation. Maximum Peak Systolic velocity: 43 cm/sec: End-diastolic velocity 18 cm/sec. 3. Internal Carotid Artery: Plaque description: Minimal calcific 3.1. Proximal Segment: Peak systolic velocity 66 cm/sec: End-diastolic velocity 19 cm/sec - % stenosis 0-15% 3.2. Middle Segment: Peak systolic velocity 77 cm/sec: End-diastolic velocity 22 cm/sec - % stenosis 0-15% 3.3. Distal Segment: Peak systolic velocity 58 cm/sec: End-diastolic velocity 22 cm/sec - % stenosis 0-15% 4. External Carotid Artery: No significant focal plaque formation. Peak systolic velocity 66 cm/sec 5. ICA/CCA Ratio: 1.9 VERTEBRAL ARTERIES: 1. Right Vertebral Artery: The right vertebral artery flow direction is antegrade. 2. Left Vertebral Artery: The left vertebral artery flow direction is antegrade. OTHER FINDINGS: NONE. IMPRESSION: RIGHT: Duplex scan does not suggest hemodynamically significant stenosis of the right extracranial carotid arteries. LEFT: Duplex scan does not suggest hemodynamically significant stenosis of the left extracranial carotid arteries.
--- NOTE | 2018-10-24 16:51 | CP.PCM.PN ---
Subjective - Date & Time of Evaluation Date of Evaluation: 10/17/18 Time of Evaluation: 16:48 - Subjective Subjective: pt weeke still unable to walk without assistance Objective - Vital Signs/Intake and Output Vital Signs (last 24 hours): Temp Pulse Resp BP Pulse Ox 97.4 F L 91 H 20 144/79 99 10/24/18 07:00 10/24/18 07:00 10/24/18 07:00 10/24/18 07:00 10/24/18 07:00 - Medications Medications: Current Medications Aspirin (Aspirin) 325 mg PO DAILY [facility] Last Admin: 10/24/18 11:05 Dose: 325 mg Heparin Sodium (Porcine) (Heparin) 5,000 units SC BID [facility] Last Admin: 10/24/18 11:05 Dose: 5,000 units Insulin Aspart (Novolog) 0 unit SC ACHS [facility]; Protocol Last Admin: 10/24/18 12:12 Dose: 1 units Rosuvastatin Calcium (Crestor) 10 mg PO HS [facility] Last Admin: 10/23/18 22:36 Dose: 10 mg Zolpidem Tartrate (Ambien) 5 mg PO HS PRN PRN Reason: Insomnia Last Admin: 10/23/18 21:04 Dose: 5 mg - Labs Labs: 10/22/18 06:31 10/22/18 06:31 PT 12.5 SECONDS (9.7-12.2) H 10/21/18 16:23 INR 1.1 10/21/18 16:23 APTT 31 SECONDS (21-34) 10/21/18 16:23 - Constitutional Appears: Non-toxic - Head Exam Head Exam: NORMAL INSPECTION - Eye Exam Eye Exam: Normal appearance Pupil Exam: NORMAL ACCOMODATION - ENT Exam ENT Exam: Mucous Membranes Moist - Neck Exam Neck Exam: Full ROM - Respiratory Exam Respiratory Exam: NORMAL BREATHING PATTERN - Cardiovascular Exam Cardiovascular Exam: REGULAR RHYTHM - GI/Abdominal Exam GI & Abdominal Exam: Soft - Extremities Exam Extremities Exam: Normal Inspection - Back Exam Back Exam: NORMAL INSPECTION - Neurological Exam Neurological Exam: Abnormal Gait, Oriented x3 - Psychiatric Exam Psychiatric exam: Normal Mood - Skin Skin Exam: Normal Color Assessment and Plan - Assessment and Plan (Free Text) Assessment: ac tia carotid stenosis generalised weekness difficuty ambulating dm Plan: need rehab
--- NOTE | 2018-10-24 21:03 | CP.PCM.PN ---
Subjective - Date & Time of Evaluation Date of Evaluation: 10/24/18 Time of Evaluation: 20:56 - Subjective Subjective: Patient is doing better but comlains of difficulty sleeping. She is unable to walk by herself to the Bathroom. She had her MRI LS and official results are pending. EEG was not performed yet to rule out Seizures vs Encephalopathy. Patient had TIA on admission. Vascular surgery ruled out any surgical intervention, only clinical treatment. Objective - Vital Signs/Intake and Output Vital Signs (last 24 hours): Temp Pulse Resp BP Pulse Ox 98.2 F 89 20 156/88 H 98 10/24/18 15:00 10/24/18 18:00 10/24/18 15:00 10/24/18 15:00 10/24/18 15:00 - Medications Medications: Current Medications Aspirin (Aspirin) 325 mg PO DAILY [facility] Last Admin: 10/24/18 11:05 Dose: 325 mg Heparin Sodium (Porcine) (Heparin) 5,000 units SC BID [facility] Last Admin: 10/24/18 17:40 Dose: 5,000 units Insulin Aspart (Novolog) 0 unit SC [facility]; Protocol Last Admin: 10/24/18 17:41 Dose: Not Given Rosuvastatin Calcium (Crestor) 10 mg PO HS [facility] Last Admin: 10/23/18 22:36 Dose: 10 mg Zolpidem Tartrate (Ambien) 5 mg PO HS PRN PRN Reason: Insomnia - Labs Labs: 10/22/18 06:31 10/22/18 06:31 PT 12.5 SECONDS (9.7-12.2) H 10/21/18 16:23 INR 1.1 10/21/18 16:23 APTT 31 SECONDS (21-34) 10/21/18 16:23 Assessment and Plan (1) LOUIE (acute kidney injury) Status: Acute (2) Atrial fibrillation with RVR Status: Acute (3) Congestive cardiac failure Status: Acute (4) Depressed Status: Acute (5) Dyspnea Status: Acute (6) Hyperglycemia Status: Acute (7) Renal insufficiency Status: Acute (8) UTI (urinary tract infection) Status: Acute (9) CVA (cerebral vascular accident) Status: Acute (10) Seizures Status: Acute (11) Bilateral leg weakness Status: Acute
[2018-10-25] MEDS: (Novolog) Insulin Aspart, Recombinant 100 u/ml 10 ml vial SC SCH ×4 (08:00→21:41)
--- NOTE | 2018-10-25 11:15 | CP.PCM.PN ---
Subjective - Date & Time of Evaluation Date of Evaluation: 10/25/18 Time of Evaluation: 11:12 - Subjective Subjective: difficulty ambulating headeach ocasionaly Objective - Vital Signs/Intake and Output Vital Signs (last 24 hours): Temp Pulse Resp BP Pulse Ox 98.3 F 85 20 186/88 H 98 10/25/18 07:00 10/25/18 07:00 10/25/18 07:00 10/25/18 07:00 10/25/18 07:00 - Medications Medications: Current Medications Aspirin (Aspirin) 325 mg PO DAILY [facility] Last Admin: 10/25/18 10:28 Dose: 325 mg Insulin Aspart (Novolog) 0 unit SC ACHS [facility]; Protocol Last Admin: 10/25/18 08:00 Dose: Not Given Rosuvastatin Calcium (Crestor) 10 mg PO HS [facility]A Last Admin: 10/24/18 21:10 Dose: 10 mg Zolpidem Tartrate (Ambien) 5 mg PO HS PRN PRN Reason: Insomnia Last Admin: 10/24/18 21:10 Dose: 5 mg - Labs Labs: 10/22/18 06:31 10/22/18 06:31 PT 12.5 SECONDS (9.7-12.2) H 10/21/18 16:23 INR 1.1 10/21/18 16:23 APTT 31 SECONDS (21-34) 10/21/18 16:23 - Constitutional Appears: Non-toxic - Head Exam Head Exam: ATRAUMATIC - Eye Exam Eye Exam: Normal appearance Pupil Exam: NORMAL ACCOMODATION - ENT Exam ENT Exam: Mucous Membranes Moist - Respiratory Exam Respiratory Exam: Clear to Ausculation Bilateral - Cardiovascular Exam Cardiovascular Exam: REGULAR RHYTHM - GI/Abdominal Exam GI & Abdominal Exam: Normal Bowel Sounds - Rectal Exam Rectal Exam: NORMAL INSPECTION - Extremities Exam Extremities Exam: Normal Inspection Additional comments: [email or web address] - Back Exam Back Exam: NORMAL INSPECTION - Neurological Exam Neurological Exam: Abnormal Gait, Awake, Oriented x3 - Psychiatric Exam Psychiatric exam: Normal Affect - Skin Skin Exam: Normal Color Assessment and Plan - Assessment and Plan (Free Text) Assessment: s/p tia lower eextremety weekness difficulty ambulating dm Plan: await rehab cont as per orderds
--- NOTE | 2018-10-25 12:35 | MRI ---
Date of service: 10/24/2018 PROCEDURE: MR LUMBAR SPINE WITHOUT CONTRAST HISTORY: lower extremity weakness COMPARISON: None available. TECHNIQUE: Multiecho multiplanar sequences were performed through the lumbar spine without the use of intravenous contrast. FINDINGS: Normal lumbar lordosis. Vertebral body heights are preserved. Marrow signal unremarkable. Conus medullaris unremarkable at the level of T12-L1 Paraspinal soft tissues are unremarkable. T12-L1: No disc herniation, spinal canal stenosis or neural foraminal narrowing. L1-2: No disc herniation, spinal canal stenosis or neural foraminal narrowing. L2-3: No disc herniation, spinal canal stenosis or neural foraminal narrowing. L3-4: No disc herniation, spinal canal stenosis or neural foraminal narrowing. L4-5: Grade 1 anterolisthesis with bilateral spondylolysis. Broad-based disc herniation with anterior epidural fat indentation and bilateral foraminal stenosis. L5-S1: No disc herniation, spinal canal stenosis or neural foraminal narrowing. OTHER FINDINGS: 16 millimeter left adrenal nodule. Right renal cysts. IMPRESSION: L4-5: Grade 1 anterolisthesis with bilateral spondylolysis. Broad-based disc herniation with anterior epidural fat indentation and bilateral foraminal stenosis.
[2018-10-25 16:07] VITALS: O2SAT 97
--- NOTE | 2018-10-25 21:58 | CP.PCM.PN ---
Subjective - Date & Time of Evaluation Date of Evaluation: 10/25/18 Time of Evaluation: 21:55 - Subjective Subjective: Patient has difficulty walking by herself. She needs help for walking to the bathroom. She has headache on and off. Her ESR is at 98 (elevated) to suggest possible temporal arteritis. will get CRP. But the headache is not extensive and is not constant. She attributes it to lack of sleep. Her BP is high. MRI LS Spine shows: L4-5: Grade 1 anterolisthesis with bilateral spondylolysis. Broad-based disc herniation with anterior epidural fat indentation and bilateral foraminal stenosis. This might be a cause to prevent her from walking. Neurosurgey consult is suggested for her back problems. Ophthalmology consult to check for papilledema and possible Temporal arteritis is recommended if the headache becomes constant. A lumbar puncture by Interventional radiology to R/O high CSF Opening Pressure. and to rule out temporal arteritis if the headache is extensive and massive. Objective - Vital Signs/Intake and Output Vital Signs (last 24 hours): Temp Pulse Resp BP Pulse Ox 98 F 95 H 20 160/75 H 97 10/25/18 15:00 10/25/18 16:06 10/25/18 15:00 10/25/18 15:00 10/25/18 15:00 - Medications Medications: Current Medications Acetaminophen (Tylenol 325mg Tab) 650 mg PO Q6 PRN PRN Reason: Pain, moderate (4-7) Last Admin: 10/25/18 11:40 Dose: 650 mg Aspirin (Aspirin) 325 mg PO DAILY [facility] Last Admin: 10/25/18 10:28 Dose: 325 mg Insulin Aspart (Novolog) 0 unit SC [facility]; Protocol Last Admin: 10/25/18 21:41 Dose: Not Given Rosuvastatin Calcium (Crestor) 10 mg PO HS [facility] Last Admin: 10/25/18 21:15 Dose: 10 mg Zolpidem Tartrate (Ambien) 5 mg PO HS PRN PRN Reason: Insomnia Last Admin: 10/25/18 21:15 Dose: 5 mg - Labs Labs: 10/22/18 06:31 10/22/18 06:31 PT 12.5 SECONDS (9.7-12.2) H 10/21/18 16:23 INR 1.1 10/21/18 16:23 APTT 31 SECONDS (21-34) 10/21/18 16:23 Assessment and Plan (1) LOUIE (acute kidney injury) Status: Acute (2) Atrial fibrillation with RVR Status: Acute (3) Congestive cardiac failure Status: Acute (4) Depressed Status: Acute (5) Dyspnea Status: Acute (6) Hyperglycemia Status: Acute (7) Renal insufficiency Status: Acute (8) UTI (urinary tract infection) Status: Acute (9) CVA (cerebral vascular accident) Status: Acute (10) Seizures Status: Acute (11) Bilateral leg weakness Status: Acute
[2018-10-26] MEDS: (Novolog) Insulin Aspart, Recombinant 100 u/ml 10 ml vial SC SCH (08:23)
--- NOTE | 2018-10-26 13:58 | CP.PCM.PN ---
Subjective - Date & Time of Evaluation Date of Evaluation: 10/26/18 Time of Evaluation: 11:30 - Subjective Subjective: patient seen today , denies any chest pain, son, dizziness, headache, N/V vss- stable Objective - Vital Signs/Intake and Output Vital Signs (last 24 hours): Temp Pulse Resp BP Pulse Ox 98.0 F 78 20 146/87 97 10/26/18 07:00 10/26/18 07:00 10/26/18 07:00 10/26/18 07:00 10/26/18 07:00 - Medications Medications: Current Medications Acetaminophen (Tylenol 325mg Tab) 650 mg PO Q6 PRN PRN Reason: Pain, moderate (4-7) Last Admin: 10/25/18 11:40 Dose: 650 mg Aspirin (Aspirin) 325 mg PO DAILY [facility] Last Admin: 10/26/18 09:21 Dose: 325 mg Insulin Aspart (Novolog) 0 unit SC ACHS [facility]; Protocol Last Admin: 10/26/18 08:23 Dose: Not Given Rosuvastatin Calcium (Crestor) 10 mg PO HS [facility] Last Admin: 10/25/18 21:15 Dose: 10 mg Zolpidem Tartrate (Ambien) 5 mg PO HS PRN PRN Reason: Insomnia Last Admin: 10/25/18 21:15 Dose: 5 mg - Labs Labs: 10/22/18 06:31 10/22/18 06:31 PT 12.5 SECONDS (9.7-12.2) H 10/21/18 16:23 INR 1.1 10/21/18 16:23 APTT 31 SECONDS (21-34) 10/21/18 16:23 Assessment and Plan - Assessment and Plan (Free Text) Assessment: A/P 72 yr old female wiht pmhx of HTN, Hypercholesterolemia, Chronic Kidney Disease admitted with weakness and dizziness MRI- -ve for stroke CTA HEAD/NECK -Left proximal internal carotid artery stenosis of 60% and a short segment of 50% stenosis in the distal r MCA. Vascular surgery was consulted for the carotid stenosis.No vascular surgery intervention warranted at this time and Continue medical management patient accepted at [facility] for rehab and patient in agreement D/w Dr. Vasquez, cleared for discharge to [facility] and f/u with her office after discharge from rehab Discharge plan discussed with patient
[2018-10-26 15:40] VITALS: BP 154/80; PULSE 95; RESP 18; TEMP 98.2
--- NOTE | 2018-10-26 21:44 | CP.PCM.PN ---
Subjective - Date & Time of Evaluation Date of Evaluation: 10/26/18 Time of Evaluation: 18:00 - Subjective Subjective: Patient was discharged home after she improved. Her L4-5 Radiculopathy will be followed as an outpatient. Objective - Vital Signs/Intake and Output Vital Signs (last 24 hours): Temp Pulse Resp BP Pulse Ox 98.2 F 95 H 18 154/80 H 97 10/26/18 15:37 10/26/18 15:37 10/26/18 15:37 10/26/18 15:37 10/26/18 15:37 - Labs Labs: 10/22/18 06:31 10/22/18 06:31 PT 12.5 SECONDS (9.7-12.2) H 10/21/18 16:23 INR 1.1 10/21/18 16:23 APTT 31 SECONDS (21-34) 10/21/18 16:23 Assessment and Plan (1) LOUIE (acute kidney injury) Status: Resolved (2) Atrial fibrillation with RVR Status: Resolved (3) Congestive cardiac failure Status: Resolved (4) Depressed Status: Acute (5) Dyspnea Status: Acute (6) Hyperglycemia Status: Acute (7) Renal insufficiency Status: Resolved (8) UTI (urinary tract infection) Status: Resolved (9) CVA (cerebral vascular accident) Assessment & Plan: TIA Status: Ruled-out (10) Seizures Status: Ruled-out (11) Bilateral leg weakness Assessment & Plan: L4-5 Radiculopathy, will be followed as an outpatient Status: Acute
--- NOTE | 2018-10-27 16:23 | CP.PCM.PN ---
Subjective - Date & Time of Evaluation Date of Evaluation: 10/26/18 Time of Evaluation: 22:00 - Subjective Subjective: pt feels beter speech normal week lower ext vss Objective - Vital Signs/Intake and Output Vital Signs (last 24 hours): Temp Pulse Resp BP Pulse Ox 98.2 F 95 H 18 154/80 H 97 10/26/18 15:37 10/26/18 15:37 10/26/18 15:37 10/26/18 15:37 10/26/18 15:37 - Labs Labs: 10/22/18 06:31 10/22/18 06:31 PT 12.5 SECONDS (9.7-12.2) H 10/21/18 16:23 INR 1.1 10/21/18 16:23 APTT 31 SECONDS (21-34) 10/21/18 16:23 - Constitutional Appears: Non-toxic - Head Exam Head Exam: NORMAL INSPECTION - Eye Exam Eye Exam: Normal appearance Pupil Exam: NORMAL ACCOMODATION - ENT Exam ENT Exam: Mucous Membranes Moist - Neck Exam Neck Exam: Tenderness - Respiratory Exam Respiratory Exam: Clear to Ausculation Bilateral - Cardiovascular Exam Cardiovascular Exam: REGULAR RHYTHM - GI/Abdominal Exam GI & Abdominal Exam: Normal Bowel Sounds - Rectal Exam Rectal Exam: NORMAL INSPECTION - Exam Exam: NORMAL INSPECTION - Extremities Exam Extremities Exam: Normal Inspection - Back Exam Back Exam: NORMAL INSPECTION - Neurological Exam Neurological Exam: Abnormal Gait, Alert, Oriented x3 - Psychiatric Exam Psychiatric exam: Normal Affect Assessment and Plan - Assessment and Plan (Free Text) Assessment: tia lower ext weekness Plan: will disch to rehab
--- NOTE | 2018-11-02 10:26 | EEG ---
DATE: 10/24/2018 The record is obtained for history of altered mental status, rule out seizures, rule out encephalopathy. The record was obtained while the patient was awake. The record was symmetrically equal on both sides with a velocity of 8 to 9 cycles per second. The waves were fairly formed and fairly organized with posterior distribution, moderate in amplitude, reactive to eye opening by attenuation. There was no abnormal discharge. No spike, no polyspike. No sharp wave, no focal slowing, and no paroxysmal discharges. The record did not show any presence of drowsiness or presence of sleeping. There were eye movement artifacts, electrode artifacts, and muscle movement artifacts and sweat artifact. The photic stimulation was performed and did not produce any changes, ventilation was omitted. There were no periods of drowsiness and no periods of sleep. In summary, this is a normal awake EEG. Clinical correlation is recommended. Adrienne Jaeger MD MICAH
--- NOTE | 2018-11-21 05:29 | DS ---
HOSPITAL COURSE: The patient came into the emergency room on 10/21/2018. She is a 72-year-old female who presented with slurred speech and weakness of her both legs. The patient was trying to walk and she felt very weak. She has dysarthria in speech and difficulty ambulating. Her vital signs were okay. Blood pressure high 145/74. She has history of hypertension. She has been seeing psychotherapy for supportive care and she has history of hypertension, hyperlipidemia, hypothyroid and chronic kidney disease. On admission, her hemoglobin was 10.3, hematocrit 31. Blood sugar was 86. Her BUN 53, creatinine 3. The patient was seen by Dr. Adrienne Jaeger for consultation for her possible TIA versus stroke and her brain did not show any acute abnormalities. She has mild microangiopathic, mild age-related global parenchymal volume loss. MRA without contrast, no acute intracranial, mild chronic microangiopathic parenchyma and carotid ultrasound was done. The patient was alert and oriented. Speech was little slow. She has tremors, sometimes both hands in resting and she has aspirin, also heparin started and she was on insulin coverage. She will continue her followup and she will still have difficulty ambulating, so she was arranged to be going to rehabilitation for more therapy until she will be able to walk. She was discharged on 10/27/2018 for rehabilitation. She feels better, but still has dysarthria and weakness of her legs and difficulty ambulating. 03:19 It was mild mostly from TIA because she still has dysarthria since the CVA, small microvascular disease of the brain. The patient was discharged with all her medications for rehabilitation on 10/27/2018. Sol Vasquez MD
== END 2018-10-26 16:21 | DRG 69 ==
LOC: C.ER 15:47 → C.6T 17:02
PROVIDERS: ADMIT Internal Medicine; ATTEND Internal Medicine
DX: G45.9 Transient cerebral ischemic attack, unspecified (principal); N17.9 Acute kidney failure, unspecified; I13.0 Hypertensive heart and chronic kidney disease with heart failure and stage 1 through stage 4 chronic kidney disease, or unspecified chronic kidney disease; N39.0 Urinary tract infection, site not specified; N18.9 Chronic kidney disease, unspecified; I50.9 Heart failure, unspecified; E11.65 Type 2 diabetes mellitus with hyperglycemia; E78.00 Pure hypercholesterolemia, unspecified; E03.9 Hypothyroidism, unspecified; E11.22 Type 2 diabetes mellitus with diabetic chronic kidney disease; I48.91 Unspecified atrial fibrillation; M43.16 Spondylolisthesis, lumbar region; M54.16 Radiculopathy, lumbar region; Z96.649 Presence of unspecified artificial hip joint; Z86.73 Personal history of transient ischemic attack (TIA), and cerebral infarction without residual deficits; R56.9 Unspecified convulsions; R13.10 Dysphagia, unspecified; R47.1 Dysarthria and anarthria; R26.2 Difficulty in walking, not elsewhere classified

== ENCOUNTER 2018-11-18 12:17 | Inpatient (IN) | payer MEDICARE, MEDICAID ==
[2018-11-18 12:17] VITALS: BMI 29.0
[2018-11-18 13:08] LABS: BASO % 0.1 % (0.0-2.0); HEMOGLOBIN 11.6 g/dL (11.0-16.0); LYMPH # 1.5 K/uL (1.0-4.3); LYMPH % 28.1 % (20.0-40.0); MEAN CELL VOLUME 85.7 fL (81.0-99.0); MEAN CORPUSCULAR HEMOGLOBIN 27.7 pg (27.0-31.0); MEAN CORPUSCULAR HGB CONC 32.4 g/dL (33.0-37.0); MEAN PLATELET VOLUME 8.8 fL (7.2-11.7); MONO # 0.4 K/uL (0.0-0.8); NEUT # 3.4 K/uL (1.8-7.0); NEUT % 64.8 % (50.0-75.0); NRBC % 0.1 % (0.0-2.0); RBC 4.17 Mil/uL (3.80-5.20); RED CELL DISTRIBUTION WIDTH 16.4 % (11.5-14.5); WHITE BLOOD COUNT 5.2 K/uL (4.8-10.8)
[2018-11-18 13:29] LABS: ALB/GLOB RATIO 0.9 (1.0-2.1); ALBUMIN 3.9 g/dL (3.5-5.0); ALT/SGPT < 6 U/L (9-52); AST/SGOT 35 U/L (14-36); BLOOD UREA NITROGEN 33 mg/dL (7-17); CALCIUM 8.9 mg/dl (8.6-10.4); GFR NON-AFRICAN AMERICAN 32
--- NOTE | 2018-11-18 14:16 | C.PDOC ---
History Of Present Illness Patient sent from [place] for evaluation, blood work done showed digoxin level of 3.2. Patient has no current physical comploaints - denies chest pain, SOB, palpitations, visual changes, abdominal pain, nausea/vomiting. PMHx - DM II, CAD, atrial fibrillation, dysphagia, HTN, urinary retention, CVA, hypothyroidism Time Seen by Provider: 11/18/18 12:46 Chief Complaint (Nursing): Abnormal Labs Past Medical History Reviewed: Historical Data, Nursing Documentation, Vital Signs Vital Signs: Last Vital Signs Temp 98.4 F 11/18/18 12:29 Pulse 60 11/18/18 12:29 Resp 20 11/18/18 12:29 BP 137/47 L 11/18/18 12:29 Pulse Ox 97 11/18/18 12:29 - Medical History PMH: Atrial Fibrillation, HTN, Hypercholesterolemia, Hypothyroidism, Chronic Kidney Disease - Modusly Procedures GROUP PSYCHOTHERAPY (12/14/16) INDIVIDUAL PSYCHOTHERAPY, SUPPORTIVE (12/14/16) Family History: States: No Known Family Hx - Social History Hx Alcohol Use: No Hx Substance Use: No - Immunization History Hx Tetanus Toxoid Vaccination: No Hx Influenza Vaccination: No Hx Pneumococcal Vaccination: No Review Of Systems Except As Marked, All Systems Reviewed And Found Negative. Constitutional: Negative for: Fever, Chills Cardiovascular: Negative for: Chest Pain, Palpitations Respiratory: Negative for: Cough, Shortness of Breath Gastrointestinal: Negative for: Nausea, Vomiting, Abdominal Pain, Diarrhea Genitourinary: Negative for: Dysuria, Hematuria Skin: Negative for: Rash Neurological: Negative for: Headache, Dizziness Physical Exam - Physical Exam Appears: Well, Non-toxic, No Acute Distress Skin: Normal Color, Warm, Dry Eye(s): bilateral: Normal Inspection Oral Mucosa: Moist Cardiovascular: Rhythm Regular Respiratory: Normal Breath Sounds, No Rales, No Rhonchi, No Wheezing Gastrointestinal/Abdominal: Normal Exam, Bowel Sounds, Soft, No Tenderness Extremity: Normal ROM, No Pedal Edema, No Calf Tenderness Pulses: Left Dorsalis Pedis: Normal, Right Dorsalis Pedis: Normal Neurological/Psych: Other (awake, alert, able to follow commands) ED Course And Treatment - Laboratory Results Result Diagrams: 11/18/18 13:04 11/18/18 13:04 Lab Results: Troponin I < 0.0120 ng/mL (0.00-0.120) 11/18/18 13:04 Total Bilirubin 1.0 mg/dL (0.2-1.3) 11/18/18 13:04 AST 35 U/L (14-36) 11/18/18 13:04 ALT < 6 U/L (9-52) L D 11/18/18 13:04 Alkaline Phosphatase 68 U/L (38-126) 11/18/18 13:04 Total Protein 8.3 g/dL (6.3-8.3) 11/18/18 13:04 Albumin 3.9 g/dL (3.5-5.0) 11/18/18 13:04 Globulin 4.4 gm/dL (2.2-3.9) H 11/18/18 13:04 Albumin/Globulin Ratio 0.9 (1.0-2.1) L 11/18/18 13:04 O2 Sat by Pulse Oximetry: 97 Disposition - Disposition Forms: [facility] [facility] (Wallisian)
[2018-11-18] MEDS ORDERED: Sodium Chloride 0.9% 500 ML IV ONE (14:21)
--- NOTE | 2018-11-18 19:21 | CP.PCM.PN ---
Subjective - Date & Time of Evaluation Date of Evaluation: 11/18/18 Time of Evaluation: 19:19 - Subjective Subjective: pt was examined at bed side in ER9 family said pmd is I spoke to her transfer pt to her service further management as per PMD Objective - Vital Signs/Intake and Output Vital Signs (last 24 hours): Temp Pulse Resp BP Pulse Ox 98.1 F 66 18 136/49 L 96 11/18/18 18:13 11/18/18 17:43 11/18/18 14:40 11/18/18 17:43 11/18/18 17:43 - Medications Medications: Current Medications Apixaban (Eliquis) 5 mg PO BID [facility] Aspirin (Aspirin Chewable) 81 mg PO DAILY [facility] Gabapentin (Neurontin) 100 mg PO DAILY [facility] Home Med (Amlodipine Besylate) 5 mg PO DAILY [facility] Home Med (Calcitriol) 0.25 mcg PO DAILY [facility] Rosuvastatin Calcium (Crestor) 10 mg PO HS [facility] Venlafaxine HCl (Effexor Xr) 150 mg PO DAILY [facility] - Labs Labs: 11/18/18 13:04 11/18/18 13:04
[2018-11-18 20:52] LABS: CK-MB < 0.22 ng/mL (0.0-3.38)
[2018-11-19 08:17] LABS: BASO % 0.1 % (0.0-2.0); HEMOGLOBIN 10.3 g/dL (11.0-16.0); LYMPH # 1.5 K/uL (1.0-4.3); LYMPH % 27.8 % (20.0-40.0); MEAN CELL VOLUME 85.4 fL (81.0-99.0); MEAN CORPUSCULAR HEMOGLOBIN 27.7 pg (27.0-31.0); MEAN CORPUSCULAR HGB CONC 32.4 g/dL (33.0-37.0); MEAN PLATELET VOLUME 8.8 fL (7.2-11.7); MONO # 0.5 K/uL (0.0-0.8); MONO % 8.3 % (0.0-10.0); NEUT # 3.5 K/uL (1.8-7.0); NEUT % 63.8 % (50.0-75.0); RBC 3.73 Mil/uL (3.80-5.20); RED CELL DISTRIBUTION WIDTH 16.1 % (11.5-14.5); WHITE BLOOD COUNT 5.5 K/uL (4.8-10.8)
[2018-11-19] MEDS: (Novolog) Insulin Aspart, Recombinant 100 u/ml 10 ml vial SC SCH ×4 (08:19→21:15)
[2018-11-19 08:27] LABS: ALB/GLOB RATIO 0.9 (1.0-2.1); ALBUMIN 3.4 g/dL (3.5-5.0); CALCIUM 8.2 mg/dl (8.6-10.4)
[2018-11-19 08:37] LABS: TROPONIN I 0.012 ng/mL (0.00-0.120)
--- NOTE | 2018-11-19 11:03 | CP.PCM.HP ---
Present on Admission - Present on Admission Any Indicators Present on Admission: No Past Patient History - Past Medical History & Family History Past Medical History?: Yes - Past Social History Smoking Status: Never Smoked - CARDIAC Hx Atrial Fibrillation: Yes Hx Hypercholesterolemia: Yes Hx Hypertension: Yes - PULMONARY Hx Respiratory Disorders: No - NEUROLOGICAL HX Cerebrovascular Accident: Yes - HEENT Hx HEENT Problems: No - RENAL Hx Chronic Kidney Disease: Yes - ENDOCRINE/METABOLIC Hx Hypothyroidism: Yes - HEMATOLOGICAL/ONCOLOGICAL Hx Blood Disorders: No - INTEGUMENTARY Hx Dermatological Problems: No - MUSCULOSKELETAL/RHEUMATOLOGICAL Hx Falls: Yes - GASTROINTESTINAL Hx Gastrointestinal Disorders: No - GENITOURINARY/GYNECOLOGICAL Hx Genitourinary Disorders: No - PSYCHIATRIC Hx Substance Use: No - SURGICAL HISTORY Hx Surgeries: No Other/Comment: HIP REPLACEMENT - DONT KNOW WHICH HIP - ANESTHESIA Hx Anesthesia: Yes Hx Anesthesia Reactions: No Meds Allergies/Adverse Reactions: Allergies Allergy/AdvReac Type Severity Reaction Status Date / Time No Known Allergies Allergy Verified 11/18/18 12:35 Results - Vital Signs Recent Vital Signs: Last Vital Signs Temp 98.6 F 11/19/18 07:55 Pulse 66 11/19/18 07:55 Resp 18 11/19/18 07:55 BP 118/67 11/19/18 07:55 Pulse Ox 96 11/19/18 07:55 - Labs Result Diagrams: 11/22/18 11:25 11/22/18 11:25 Labs: Laboratory Results - last 24 hr 11/18/18 11/18/18 11/18/18 13:04 13:04 13:04 WBC 5.2 RBC 4.17 Hgb 11.6 Hct 35.7 MCV 85.7 MCH 27.7 MCHC 32.4 L RDW 16.4 H Plt Count 398 D MPV 8.8 Neut % (Auto) 64.8 Lymph % (Auto) 28.1 Mclennan % (Auto) 7.0 Eos % (Auto) 0.0 Baso % (Auto) 0.1 Neut # (Auto) 3.4 Lymph # (Auto) 1.5 Mclennan # (Auto) 0.4 Eos # (Auto) 0.0 Baso # (Auto) 0.0 Sodium 134 Potassium 5.4 H Chloride 99 Carbon Dioxide 27 Anion Gap 13 BUN 33 H Creatinine 1.6 H Est GFR ( Amer) 38 Est GFR (Non-Af Amer) 32 POC Glucose (mg/dL) Random Glucose 182 H D Calcium 8.9 Phosphorus 4.0 Magnesium 2.3 Total Bilirubin 1.0 AST 35 ALT < 6 L D Alkaline Phosphatase 68 Total Creatine Kinase < 20 L CK-MB (Mass) Troponin I < 0.0120 Total Protein 8.3 Albumin 3.9 Globulin 4.4 H Albumin/Globulin Ratio 0.9 L Digoxin 3.9 H* 11/18/18 11/18/18 11/18/18 13:16 20:21 20:21 WBC RBC Hgb Hct MCV MCH MCHC RDW Plt Count MPV Neut % (Auto) Lymph % (Auto) Mclennan % (Auto) Eos % (Auto) Baso % (Auto) Neut # (Auto) Lymph # (Auto) Mclennan # (Auto) Eos # (Auto) Baso # (Auto) Sodium Potassium Chloride Carbon Dioxide Anion Gap BUN Creatinine Est GFR ( Amer) Est GFR (Non-Af Amer) POC Glucose (mg/dL) 204 H Random Glucose Calcium Phosphorus Magnesium Total Bilirubin AST ALT Alkaline Phosphatase Total Creatine Kinase < 20 L CK-MB (Mass) < 0.22 Troponin I < 0.0120 Total Protein Albumin Globulin Albumin/Globulin Ratio Digoxin 3.3 H* 11/18/18 11/19/18 11/19/18 21:12 06:26 08:00 WBC 5.5 RBC 3.73 L Hgb 10.3 L Hct 31.8 L MCV 85.4 MCH 27.7 MCHC 32.4 L RDW 16.1 H Plt Count 357 MPV 8.8 Neut % (Auto) 63.8 Lymph % (Auto) 27.8 Mclennan % (Auto) 8.3 Eos % (Auto) 0.0 Baso % (Auto) 0.1 Neut # (Auto) 3.5 Lymph # (Auto) 1.5 Mclennan # (Auto) 0.5 Eos # (Auto) 0.0 Baso # (Auto) 0.0 Sodium Potassium Chloride Carbon Dioxide Anion Gap BUN Creatinine Est GFR ( Amer) Est GFR (Non-Af Amer) POC Glucose (mg/dL) 146 H 136 H Random Glucose Calcium Phosphorus Magnesium Total Bilirubin AST ALT Alkaline Phosphatase Total Creatine Kinase CK-MB (Mass) Troponin I Total Protein Albumin Globulin Albumin/Globulin Ratio Digoxin 11/19/18 11/19/18 08:00 08:00 WBC RBC Hgb Hct MCV MCH MCHC RDW Plt Count MPV Neut % (Auto) Lymph % (Auto) Mclennan % (Auto) Eos % (Auto) Baso % (Auto) Neut # (Auto) Lymph # (Auto) Mclennan # (Auto) Eos # (Auto) Baso # (Auto) Sodium 135 Potassium 4.7 Chloride 102 Carbon Dioxide 27 Anion Gap 11 BUN 26 H Creatinine 1.4 H Est GFR ( Amer) 44 Est GFR (Non-Af Amer) 37 POC Glucose (mg/dL) Random Glucose 132 H D Calcium 8.2 L Phosphorus Magnesium Total Bilirubin 0.6 AST 18 ALT 9 D Alkaline Phosphatase 66 Total Creatine Kinase CK-MB (Mass) Troponin I 0.0120 Total Protein 7.1 Albumin 3.4 L Globulin 3.6 Albumin/Globulin Ratio 0.9 L Digoxin 3.0 H*
--- NOTE | 2018-11-19 11:08 | CP.PCM.HP ---
History of Present Illness - History of Present Illness History of Present Illness: pt was sent from rehab for hi dig level Present on Admission - Present on Admission Any Indicators Present on Admission: No Review of Systems - Review of Systems Systems not reviewed;Unavailable: Acuity of Condition, Dementia - Constitutional Constitutional: Fever, Weakness - EENT Eyes: As Per HPI Ears: As Per HPI Nose/Mouth/Throat: As Per HPI - Breasts Breasts: As Per HPI - Cardiovascular Cardiovascular: Dyspnea on Exertion Additional comments: hx of at fib hx of cad - Respiratory Respiratory: Dyspnea on Exertion - Gastrointestinal Gastrointestinal: As Per HPI - Genitourinary Genitourinary: As Per HPI - Reproductive: Female Reproductive:Female: Post Menopausal - Menstruation Menstruation: Post Menopausal - Musculoskeletal Musculoskeletal: Muscle Weakness - Integumentary Integumentary: As Per HPI - Neurological Additional comments: s/p old cva withdysarthia generalised weekness - Psychiatric Psychiatric: Depression - Endocrine Additional Comments: dm - Hematologic/Lymphatic Hematologic: As Per HPI Past Patient History - Past Medical History & Family History Past Medical History?: Yes - Past Social History Smoking Status: Never Smoked - CARDIAC Hx Atrial Fibrillation: Yes Hx Hypercholesterolemia: Yes Hx Hypertension: Yes - PULMONARY Hx Respiratory Disorders: No - NEUROLOGICAL HX Cerebrovascular Accident: Yes - HEENT Hx HEENT Problems: No - RENAL Hx Chronic Kidney Disease: Yes - ENDOCRINE/METABOLIC Hx Hypothyroidism: Yes - HEMATOLOGICAL/ONCOLOGICAL Hx Blood Disorders: No - INTEGUMENTARY Hx Dermatological Problems: No - MUSCULOSKELETAL/RHEUMATOLOGICAL Hx Falls: Yes - GASTROINTESTINAL Hx Gastrointestinal Disorders: No - GENITOURINARY/GYNECOLOGICAL Hx Genitourinary Disorders: No - PSYCHIATRIC Hx Substance Use: No - SURGICAL HISTORY Hx Surgeries: No Other/Comment: HIP REPLACEMENT - DONT KNOW WHICH HIP - ANESTHESIA Hx Anesthesia: Yes Hx Anesthesia Reactions: No Meds Allergies/Adverse Reactions: Allergies Allergy/AdvReac Type Severity Reaction Status Date / Time No Known Allergies Allergy Verified 11/18/18 12:35 Physical Exam - Constitutional Appears: No Acute Distress - Head Exam Head Exam: ATRAUMATIC Additional comments: fascial weekness one side deviatedmouth from old stroke - Eye Exam Eye Exam: Normal appearance - ENT Exam ENT Exam: Mucous Membranes Moist - Neck Exam Neck exam: Positive for: Normal Inspection - Respiratory Exam Respiratory Exam: Clear to Auscultation Bilateral - Cardiovascular Exam Cardiovascular Exam: REGULAR RHYTHM - GI/Abdominal Exam GI & Abdominal Exam: Normal Bowel Sounds - Back Exam Back exam: NORMAL INSPECTION - Neurological Exam Neurological exam: Altered, Oriented x3 - Psychiatric Exam Psychiatric exam: Normal Affect - Skin Skin Exam: Normal Color Results - Vital Signs Recent Vital Signs: Last Vital Signs Temp 98.6 F 11/19/18 07:55 Pulse 66 11/19/18 07:55 Resp 18 11/19/18 07:55 BP 118/67 11/19/18 07:55 Pulse Ox 96 11/19/18 07:55 - Labs Result Diagrams: 11/19/18 08:00 11/19/18 08:00 Labs: Laboratory Results - last 24 hr 11/18/18 11/18/18 11/18/18 13:04 13:04 13:04 WBC 5.2 RBC 4.17 Hgb 11.6 Hct 35.7 MCV 85.7 MCH 27.7 MCHC 32.4 L RDW 16.4 H Plt Count 398 D MPV 8.8 Neut % (Auto) 64.8 Lymph % (Auto) 28.1 [place] % (Auto) 7.0 Eos % (Auto) 0.0 Baso % (Auto) 0.1 Neut # (Auto) 3.4 Lymph # (Auto) 1.5 [place] # (Auto) 0.4 Eos # (Auto) 0.0 Baso # (Auto) 0.0 Sodium 134 Potassium 5.4 H Chloride 99 Carbon Dioxide 27 Anion Gap 13 BUN 33 H Creatinine 1.6 H Est GFR ( Amer) 38 Est GFR (Non-Af Amer) 32 POC Glucose (mg/dL) Random Glucose 182 H D Calcium 8.9 Phosphorus 4.0 Magnesium 2.3 Total Bilirubin 1.0 AST 35 ALT < 6 L D Alkaline Phosphatase 68 Total Creatine Kinase < 20 L CK-MB (Mass) Troponin I < 0.0120 Total Protein 8.3 Albumin 3.9 Globulin 4.4 H Albumin/Globulin Ratio 0.9 L Digoxin 3.9 H* 11/18/18 11/18/18 11/18/18 13:16 20:21 20:21 WBC RBC Hgb Hct MCV MCH MCHC RDW Plt Count MPV Neut % (Auto) Lymph % (Auto) [place] % (Auto) Eos % (Auto) Baso % (Auto) Neut # (Auto) Lymph # (Auto) [place] # (Auto) Eos # (Auto) Baso # (Auto) Sodium Potassium Chloride Carbon Dioxide Anion Gap BUN Creatinine Est GFR ( Amer) Est GFR (Non-Af Amer) POC Glucose (mg/dL) 204 H Random Glucose Calcium Phosphorus Magnesium Total Bilirubin AST ALT Alkaline Phosphatase Total Creatine Kinase < 20 L CK-MB (Mass) < 0.22 Troponin I < 0.0120 Total Protein Albumin Globulin Albumin/Globulin Ratio Digoxin 3.3 H* 11/18/18 11/19/18 11/19/18 21:12 06:26 08:00 WBC 5.5 RBC 3.73 L Hgb 10.3 L Hct 31.8 L MCV 85.4 MCH 27.7 MCHC 32.4 L RDW 16.1 H Plt Count 357 MPV 8.8 Neut % (Auto) 63.8 Lymph % (Auto) 27.8 [place] % (Auto) 8.3 Eos % (Auto) 0.0 Baso % (Auto) 0.1 Neut # (Auto) 3.5 Lymph # (Auto) 1.5 [place] # (Auto) 0.5 Eos # (Auto) 0.0 Baso # (Auto) 0.0 Sodium Potassium Chloride Carbon Dioxide Anion Gap BUN Creatinine Est GFR ( Amer) Est GFR (Non-Af Amer) POC Glucose (mg/dL) 146 H 136 H Random Glucose Calcium Phosphorus Magnesium Total Bilirubin AST ALT Alkaline Phosphatase Total Creatine Kinase CK-MB (Mass) Troponin I Total Protein Albumin Globulin Albumin/Globulin Ratio Digoxin 11/19/18 11/19/18 08:00 08:00 WBC RBC Hgb Hct MCV MCH MCHC RDW Plt Count MPV Neut % (Auto) Lymph % (Auto) [place] % (Auto) Eos % (Auto) Baso % (Auto) Neut # (Auto) Lymph # (Auto) [place] # (Auto) Eos # (Auto) Baso # (Auto) Sodium 135 Potassium 4.7 Chloride 102 Carbon Dioxide 27 Anion Gap 11 BUN 26 H Creatinine 1.4 H Est GFR ( Amer) 44 Est GFR (Non-Af Amer) 37 POC Glucose (mg/dL) Random Glucose 132 H D Calcium 8.2 L Phosphorus Magnesium Total Bilirubin 0.6 AST 18 ALT 9 D Alkaline Phosphatase 66 Total Creatine Kinase CK-MB (Mass) Troponin I 0.0120 Total Protein 7.1 Albumin 3.4 L Globulin 3.6 Albumin/Globulin Ratio 0.9 L Digoxin 3.0 H* Assessment & Plan - Assessment and Plan (Free Text) Assessment: elevated dig level hx of at fib hx of old stoke hx of chf Plan: moniter and cont med consult cardiology - Date & Time Date: 11/19/18 Time: 11:15
[2018-11-19] MEDS: Venlafaxine 150 mg ER Cap PO SCH (12:26)
--- NOTE | 2018-11-19 17:35 | CARD ---
APPROVED REPORT Date of service: 11/19/2018 EXAM: Two-dimensional and M-mode echocardiogram with Doppler and color Doppler. 2D DIMENSIONS IVSd0.8 (0.7-1.1cm)Aortic Root (2D)2.3 (2.0-3.7cm) LVDd4.6 (3.9-5.9cm)PWd0.7 (0.7-1.1cm) LA Lizzza48 (18-58mL)LVDs3.3 (2.5-4.0cm) FS (%) 28.9 %LVEF (%)60.0 (>50%) LVEF (Franz's)67.54 %IVC0.00 cm M-Mode DIMENSIONS Left Atrium (MM)3.68 (2.5-4.0cm)IVSd0.65 (0.7-1.1cm) Aortic Root2.31 (2.2-3.7cm)LVDd5.53 (4.0-5.6cm) Aortic Cusp Exc.1.53 (1.5-2.0cm)PWd0.72 (0.7-1.1cm) FS (%) 38 %LVDs3.42 (2.0-3.8cm) LVEF (%)68 (>50%) Aortic Valve AI P 1/2 [id number] Mitral Valve MV E Huczidpy30.8cm/sMV A Jdjdeqec48.7cm/sE/A ratio1.2 TDI Lateral E' Peak V9.45cm/sMedial E' Peak V4.48cm/sE/Lateral E'9.8 E/Medial E'20.7 Tricuspid Valve TR Peak Chhmnkij499rt/sTR Peak Gr.03smCjPSMR12wuSs LEFT VENTRICLE The left ventricle is normal size. There is normal left ventricular wall thickness. Left ventricle systolic function is normal. The Ejection Fraction is 60-65%. There is normal LV segmental wall motion. The left ventricular diastolic function is normal. There is no ventricular septal defect visualized. RIGHT VENTRICLE The right ventricle is normal size. The right ventricular systolic function is normal. ATRIA The left atrium is mildly dilated. The right atrium size is normal. AORTIC VALVE The aortic valve is mildly to moderately sclerotic. The aortic valve is tri-cuspid. There is mild aortic regurgitation. There is no aortic valvular stenosis. MITRAL VALVE The mitral valve is normal in structure. There is no evidence of mitral valve prolapse. There is no mitral valve regurgitation noted. TRICUSPID VALVE The tricuspid valve is normal in structure. There is trace tricuspid regurgitation. There is no pulmonary hypertension. PULMONIC VALVE The pulmonic valve is not well visualized. There is no pulmonic valvular regurgitation. GREAT VESSELS The aortic root is normal in size. The ascending aorta is normal in size. The IVC is normal in size and collapses >50% with inspiration. PERICARDIAL EFFUSION There is no pericardial effusion. <Conclusion> Left ventricle systolic function is normal. The Ejection Fraction is 60-65%. The left ventricular diastolic function is normal. There is mild aortic regurgitation.
--- NOTE | 2018-11-19 19:26 | CP.PCM.CON ---
History of Present Illness - History of Present Illness History of Present Illness: CC: Dig toxicity Patient sent from [place] for evaluation, blood work done showed digoxin level of 3.2. Patient has no current physical comploaints - denies chest pain, SOB, palpitations, visual changes, abdominal pain, nausea/vomiting. PMHx - DM II, CAD, atrial fibrillation, dysphagia, HTN, urinary retention, CVA, hypothyroidism Chief Complaint (Nursing): Abnormal Labs - Medical History PMH: Atrial Fibrillation, HTN, Hypercholesterolemia, Hypothyroidism, Chronic K idney Disease - [facility] Procedures GROUP PSYCHOTHERAPY (12/14/16) INDIVIDUAL PSYCHOTHERAPY, SUPPORTIVE (12/14/16) Family History: States: No Known Family Hx - Social History Hx Alcohol Use: No Hx Substance Use: No - Immunization History Hx Tetanus Toxoid Vaccination: No Hx Influenza Vaccination: No Hx Pneumococcal Vaccination: No Review Of Systems Except As Marked, All Systems Reviewed And Found Negative. Constitutional: Negative for: Fever, Chills Cardiovascular: Negative for: Chest Pain, Palpitations Respiratory: Negative for: Cough, Shortness of Breath Gastrointestinal: Negative for: Nausea, Vomiting, Abdominal Pain, Diarrhea Genitourinary: Negative for: Dysuria, Hematuria Skin: Negative for: Rash Neurological: Negative for: Headache, Dizziness Physical Exam - Physical Exam Appears: Well, Non-toxic, No Acute Distress Skin: Normal Color, Warm, Dry Eye(s): bilateral: Normal Inspection Oral Mucosa: Moist Cardiovascular: Rhythm Regular Respiratory: Normal Breath Sounds, No Rales, No Rhonchi, No Wheezing Gastrointestinal/Abdominal: Normal Exam, Bowel Sounds, Soft, No Tenderness Extremity: Normal ROM, No Pedal Edema, No Calf Tenderness Pulses: Left Dorsalis Pedis: Normal, Right Dorsalis Pedis: Normal Neurological/Psych: Other (awake, alert, able to follow commands) Past Patient History - Past Medical History & Family History Past Medical History?: Yes - Past Social History Smoking Status: Never Smoked - CARDIAC Hx Hypercholesterolemia: Yes Hx Hypertension: Yes - PULMONARY Hx Respiratory Disorders: No - NEUROLOGICAL HX Cerebrovascular Accident: Yes - HEENT Hx HEENT Problems: No - RENAL Hx Chronic Kidney Disease: Yes - ENDOCRINE/METABOLIC Hx Hypothyroidism: Yes - HEMATOLOGICAL/ONCOLOGICAL Hx Blood Disorders: No - INTEGUMENTARY Hx Dermatological Problems: No - MUSCULOSKELETAL/RHEUMATOLOGICAL Hx Falls: Yes - GASTROINTESTINAL Hx Gastrointestinal Disorders: No - GENITOURINARY/GYNECOLOGICAL Hx Genitourinary Disorders: No - PSYCHIATRIC Hx Substance Use: No - SURGICAL HISTORY Hx Surgeries: No Other/Comment: HIP REPLACEMENT - DONT KNOW WHICH HIP - ANESTHESIA Hx Anesthesia: Yes Hx Anesthesia Reactions: No Meds Allergies/Adverse Reactions: Allergies Allergy/AdvReac Type Severity Reaction Status Date / Time No Known Allergies Allergy Verified 11/18/18 12:35 - Medications Medications: Current Medications Amlodipine Besylate (Norvasc) 5 mg PO DAILY [facility] Last Admin: 11/19/18 10:18 Dose: 5 mg Apixaban (Eliquis) 5 mg PO BID [facility] Last Admin: 11/19/18 17:13 Dose: 5 mg Aspirin (Aspirin Chewable) 81 mg PO DAILY [facility] Last Admin: 11/19/18 10:17 Dose: 81 mg Calcitriol (Rocaltrol) 0.25 mcg PO DAILY [facility] Last Admin: 11/19/18 10:18 Dose: 0.25 mcg Gabapentin (Neurontin) 100 mg PO DAILY [facility] Last Admin: 11/19/18 10:17 Dose: 100 mg Insulin Aspart (Novolog) 0 unit SC [facility]; Protocol Last Admin: 11/19/18 17:13 Dose: 1 u Rosuvastatin Calcium (Crestor) 10 mg PO HS [facility] Last Admin: 11/18/18 22:31 Dose: Not Given Venlafaxine HCl (Effexor Xr) 150 mg PO DAILY [facility] Last Admin: 11/19/18 12:26 Dose: 150 mg Zolpidem Tartrate (Ambien) 5 mg PO HS PRN PRN Reason: Insomnia Last Admin: 11/19/18 02:47 Dose: 5 mg Results - Vital Signs Recent Vital Signs: Last Vital Signs Temp 98.6 F 11/19/18 07:55 Pulse 66 11/19/18 16:34 Resp 18 11/19/18 07:55 BP 118/67 11/19/18 07:55 Pulse Ox 98 11/19/18 16:34 - Labs Result Diagrams: 11/19/18 08:00 11/19/18 08:00 Labs: Laboratory Results - last 24 hr 11/18/18 11/18/18 11/18/18 20:21 20:21 21:12 WBC RBC Hgb Hct MCV MCH MCHC RDW Plt Count MPV Neut % (Auto) Lymph % (Auto) [place] % (Auto) Eos % (Auto) Baso % (Auto) Neut # (Auto) Lymph # (Auto) [place] # (Auto) Eos # (Auto) Baso # (Auto) Sodium Potassium Chloride Carbon Dioxide Anion Gap BUN Creatinine Est GFR ( Amer) Est GFR (Non-Af Amer) POC Glucose (mg/dL) 146 H Random Glucose Calcium Total Bilirubin AST ALT Alkaline Phosphatase Total Creatine Kinase < 20 L CK-MB (Mass) < 0.22 Troponin I < 0.0120 Total Protein Albumin Globulin Albumin/Globulin Ratio Digoxin 3.3 H* 11/19/18 11/19/18 11/19/18 06:26 08:00 08:00 WBC 5.5 RBC 3.73 L Hgb 10.3 L Hct 31.8 L MCV 85.4 MCH 27.7 MCHC 32.4 L RDW 16.1 H Plt Count 357 MPV 8.8 Neut % (Auto) 63.8 Lymph % (Auto) 27.8 [place] % (Auto) 8.3 Eos % (Auto) 0.0 Baso % (Auto) 0.1 Neut # (Auto) 3.5 Lymph # (Auto) 1.5 [place] # (Auto) 0.5 Eos # (Auto) 0.0 Baso # (Auto) 0.0 Sodium 135 Potassium 4.7 Chloride 102 Carbon Dioxide 27 Anion Gap 11 BUN 26 H Creatinine 1.4 H Est GFR ( Amer) 44 Est GFR (Non-Af Amer) 37 POC Glucose (mg/dL) 136 H Random Glucose 132 H D Calcium 8.2 L Total Bilirubin 0.6 AST 18 ALT 9 D Alkaline Phosphatase 66 Total Creatine Kinase CK-MB (Mass) Troponin I 0.0120 Total Protein 7.1 Albumin 3.4 L Globulin 3.6 Albumin/Globulin Ratio 0.9 L Digoxin 11/19/18 11/19/18 11/19/18 08:00 11:18 16:15 WBC RBC Hgb Hct MCV MCH MCHC RDW Plt Count MPV Neut % (Auto) Lymph % (Auto) [place] % (Auto) Eos % (Auto) Baso % (Auto) Neut # (Auto) Lymph # (Auto) [place] # (Auto) Eos # (Auto) Baso # (Auto) Sodium Potassium Chloride Carbon Dioxide Anion Gap BUN Creatinine Est GFR ( Amer) Est GFR (Non-Af Amer) POC Glucose (mg/dL) 197 H 195 H Random Glucose Calcium Total Bilirubin AST ALT Alkaline Phosphatase Total Creatine Kinase CK-MB (Mass) Troponin I Total Protein Albumin Globulin Albumin/Globulin Ratio Digoxin 3.0 H* Assessment & Plan - Assessment and Plan (Free Text) Assessment: Dig toxicity. Improving Hemodynamically stable A Fib HTN Continue other meds including Eliquis
[2018-11-19 19:55] LABS: CK-MB < 0.22 ng/mL (0.0-3.38)
[2018-11-20 08:36] LABS: BASO % 0.2 % (0.0-2.0); LYMPH # 1.8 K/uL (1.0-4.3); LYMPH % 29.7 % (20.0-40.0); MEAN CELL VOLUME 84.3 fL (81.0-99.0); MEAN CORPUSCULAR HEMOGLOBIN 27.4 pg (27.0-31.0); MEAN CORPUSCULAR HGB CONC 32.5 g/dL (33.0-37.0); MEAN PLATELET VOLUME 8.4 fL (7.2-11.7); MONO # 0.5 K/uL (0.0-0.8); MONO % 8.7 % (0.0-10.0); NEUT # 3.7 K/uL (1.8-7.0); NEUT % 61.4 % (50.0-75.0); RBC 3.65 Mil/uL (3.80-5.20); RED CELL DISTRIBUTION WIDTH 16.4 % (11.5-14.5)
[2018-11-20] MEDS: (Novolog) Insulin Aspart, Recombinant 100 u/ml 10 ml vial SC SCH ×4 (08:40→21:27)
[2018-11-20 08:56] LABS: ALBUMIN 3.4 g/dL (3.5-5.0); ALT/SGPT < 6 U/L (9-52); AST/SGOT 20 U/L (14-36); BLOOD UREA NITROGEN 22 mg/dL (7-17); CALCIUM 8.4 mg/dl (8.6-10.4); GFR NON-AFRICAN AMERICAN 44
[2018-11-20] MEDS ORDERED: Megestrol Acetate 40 mg/ml Cup PO STA (09:59)
--- NOTE | 2018-11-20 10:08 | CP.PCM.PN ---
Subjective - Date & Time of Evaluation Date of Evaluation: 11/20/18 Time of Evaluation: 10:09 - Subjective Subjective: ptdoesnot have apetite weeke aneamia Objective - Vital Signs/Intake and Output Vital Signs (last 24 hours): Temp Pulse Resp BP Pulse Ox 98.8 F 69 20 146/70 96 11/20/18 07:50 11/20/18 07:50 11/20/18 07:50 11/20/18 07:50 11/20/18 07:50 - Medications Medications: Current Medications Amlodipine Besylate (Norvasc) 5 mg PO DAILY [facility] Last Admin: 11/19/18 10:18 Dose: 5 mg Apixaban (Eliquis) 5 mg PO BID [facility] Last Admin: 11/19/18 17:13 Dose: 5 mg Aspirin (Aspirin Chewable) 81 mg PO DAILY [facility] Last Admin: 11/19/18 10:17 Dose: 81 mg Calcitriol (Rocaltrol) 0.25 mcg PO DAILY [facility] Last Admin: 11/19/18 10:18 Dose: 0.25 mcg Gabapentin (Neurontin) 100 mg PO DAILY [facility] Last Admin: 11/19/18 10:17 Dose: 100 mg Insulin Aspart (Novolog) 0 unit SC [facility]; Protocol Last Admin: 11/20/18 08:40 Dose: Not Given Megestrol Acetate (Megace) 400 mg PO DAILY [facility] Stop: 11/20/18 10:00 Rosuvastatin Calcium (Crestor) 10 mg PO [facility] Last Admin: 11/19/18 21:06 Dose: 10 mg Venlafaxine HCl (Effexor Xr) 150 mg PO DAILY [facility] Last Admin: 11/19/18 12:26 Dose: 150 mg - Labs Labs: 11/20/18 08:24 11/20/18 08:24 - Constitutional Appears: Non-toxic - Head Exam Head Exam: ATRAUMATIC - Eye Exam Eye Exam: Normal appearance Pupil Exam: NORMAL ACCOMODATION - ENT Exam ENT Exam: Mucous Membranes Moist - Neck Exam Neck Exam: Full ROM, Normal Inspection - Respiratory Exam Respiratory Exam: NORMAL BREATHING PATTERN - Cardiovascular Exam Cardiovascular Exam: REGULAR RHYTHM - GI/Abdominal Exam GI & Abdominal Exam: Normal Bowel Sounds - Extremities Exam Extremities Exam: Normal Inspection - Back Exam Back Exam: NORMAL INSPECTION - Neurological Exam Neurological Exam: Awake, Oriented x3 - Psychiatric Exam Psychiatric exam: Normal Affect - Skin Skin Exam: Pallor Assessment and Plan - Assessment and Plan (Free Text) Assessment: dig improved aneamia will evaluate poor apetite weeke Plan: pt and as per orders
[2018-11-20] MEDS: Venlafaxine 150 mg ER Cap PO SCH (10:39)
[2018-11-20 11:38] LABS: HEMOGLOBIN 10.2 g/dL (11.0-16.0); MEAN CELL VOLUME 85.4 fL (81.0-99.0); MEAN CORPUSCULAR HEMOGLOBIN 27.2 pg (27.0-31.0); MEAN CORPUSCULAR HGB CONC 31.9 g/dL (33.0-37.0); MEAN PLATELET VOLUME 8.3 fL (7.2-11.7); RBC 3.73 Mil/uL (3.80-5.20); RED CELL DISTRIBUTION WIDTH 16.4 % (11.5-14.5); WHITE BLOOD COUNT 6.1 K/uL (4.8-10.8)
[2018-11-20 12:32] LABS: FREE T4 1.44 ng/dL (0.78-2.19)
--- NOTE | 2018-11-20 23:14 | CP.PCM.PN ---
Subjective - Date & Time of Evaluation Date of Evaluation: 11/20/18 Time of Evaluation: 15:15 - Subjective Subjective: Patient seen and evaluated Denies chest pain and dyspnea Dig toxicity Improving Objective - Vital Signs/Intake and Output Vital Signs (last 24 hours): Temp Pulse Resp BP Pulse Ox 98.6 F 72 20 123/63 97 11/20/18 15:00 11/20/18 15:00 11/20/18 15:00 11/20/18 15:00 11/20/18 15:00 - Medications Medications: Current Medications Amlodipine Besylate (Norvasc) 5 mg PO DAILY [facility] Last Admin: 11/20/18 10:39 Dose: 5 mg Amoxicillin (Amoxil 500 Mg Cap) 500 mg PO Q8H [facility]; Protocol Last Admin: 11/20/18 17:28 Dose: 500 mg Apixaban (Eliquis) 5 mg PO BID [facility] Last Admin: 11/20/18 17:28 Dose: 5 mg Aspirin (Aspirin Chewable) 81 mg PO DAILY [facility] Last Admin: 11/20/18 10:39 Dose: 81 mg Calcitriol (Rocaltrol) 0.25 mcg PO DAILY [facility] Last Admin: 11/20/18 10:39 Dose: 0.25 mcg Gabapentin (Neurontin) 100 mg PO DAILY [facility] Last Admin: 11/20/18 10:39 Dose: 100 mg Ibuprofen (Motrin Tab) 800 mg PO Q12 PRN PRN Reason: Pain, moderate (4-7) Last Admin: 11/20/18 17:33 Dose: 800 mg Insulin Aspart (Novolog) 0 unit SC [facility]; Protocol Last Admin: 11/20/18 21:27 Dose: Not Given Rosuvastatin Calcium (Crestor) 10 mg PO HS [facility] Last Admin: 11/20/18 21:51 Dose: 10 mg Venlafaxine HCl (Effexor Xr) 150 mg PO DAILY [facility] Last Admin: 11/20/18 10:39 Dose: 150 mg Zolpidem Tartrate (Ambien) 5 mg PO HS PRN PRN Reason: Insomnia Last Admin: 11/20/18 21:51 Dose: 5 mg - Labs Labs: 11/20/18 11:31 11/20/18 08:24
[2018-11-21] MEDS: (Novolog) Insulin Aspart, Recombinant 100 u/ml 10 ml vial SC SCH ×4 (07:52→21:29)
[2018-11-21] MEDS: Venlafaxine 150 mg ER Cap PO SCH (10:26)
--- NOTE | 2018-11-21 12:22 | CARD ---
APPROVED REPORT Date of service: 11/18/2018 EKG Measurement Heart [id number] <Conclusion> Normal sinus rhythm Possible Inferior infarct, age undetermined Abnormal ECG
--- NOTE | 2018-11-21 17:10 | CP.PCM.PN ---
Subjective - Date & Time of Evaluation Date of Evaluation: 11/21/18 Time of Evaluation: 17:07 - Subjective Subjective: pthas no apetite canoteate regular food mouth hurta Objective - Vital Signs/Intake and Output Vital Signs (last 24 hours): Temp Pulse Resp BP Pulse Ox 98.2 F 75 20 126/57 L 97 11/21/18 15:00 11/21/18 15:00 11/21/18 15:00 11/21/18 15:00 11/21/18 15:00 - Medications Medications: Current Medications Amlodipine Besylate (Norvasc) 5 mg PO DAILY [facility] Last Admin: 11/21/18 10:26 Dose: 5 mg Amoxicillin (Amoxil 500 Mg Cap) 500 mg PO Q8H [facility]; Protocol Last Admin: 11/21/18 17:05 Dose: 500 mg Apixaban (Eliquis) 5 mg PO BID [facility] Last Admin: 11/21/18 17:05 Dose: 5 mg Aspirin (Aspirin Chewable) 81 mg PO DAILY [facility] Last Admin: 11/21/18 10:26 Dose: 81 mg Calcitriol (Rocaltrol) 0.25 mcg PO DAILY [facility] Last Admin: 11/21/18 10:26 Dose: 0.25 mcg Gabapentin (Neurontin) 100 mg PO DAILY [facility] Last Admin: 11/21/18 10:26 Dose: 100 mg Ibuprofen (Motrin Tab) 800 mg PO Q12 PRN PRN Reason: Pain, moderate (4-7) Last Admin: 11/20/18 17:33 Dose: 800 mg Insulin Aspart (Novolog) 0 unit SC ACHS [facility]; Protocol Last Admin: 11/21/18 17:05 Dose: 3 units Megestrol Acetate (Megace) 400 mg PO DAILY [facility] Rosuvastatin Calcium (Crestor) 10 mg PO HS [facility] Last Admin: 11/20/18 21:51 Dose: 10 mg Venlafaxine HCl (Effexor Xr) 150 mg PO DAILY [facility] Last Admin: 11/21/18 10:26 Dose: 150 mg Zolpidem Tartrate (Ambien) 5 mg PO HS PRN PRN Reason: Insomnia Last Admin: 11/20/18 21:51 Dose: 5 mg - Labs Labs: 11/20/18 11:31 11/20/18 08:24 - Constitutional Appears: Non-toxic - Head Exam Head Exam: ATRAUMATIC - Eye Exam Eye Exam: Normal appearance, PERRL - ENT Exam ENT Exam: Mucous Membranes Moist - Respiratory Exam Respiratory Exam: Clear to Ausculation Bilateral - Cardiovascular Exam Cardiovascular Exam: REGULAR RHYTHM - GI/Abdominal Exam GI & Abdominal Exam: Normal Bowel Sounds - Extremities Exam Extremities Exam: Normal Inspection - Neurological Exam Neurological Exam: Abnormal Gait, Alert, Oriented x3 Additional comments: weeke lower ext - Psychiatric Exam Psychiatric exam: Normal Affect - Skin Skin Exam: Normal Color Assessment and Plan - Assessment and Plan (Free Text) Assessment: poor apetite dificulty earing difficulty ambulating Plan: cont med chande to [facility] abd resume rehab
[2018-11-21] MEDS: Megestrol Acetate 40 mg/ml Cup PO SCH (18:09)
--- NOTE | 2018-11-21 21:28 | CP.PCM.PN ---
<Carol Awad - Last Filed: 11/21/18 21:43> Subjective - Date & Time of Evaluation Date of Evaluation: 11/21/18 Time of Evaluation: 08:00 - Subjective Subjective: Cardiology Progress Note for Dr. Lucas: Patient was seen and examined at bedside in the AM. Patient denies chest pain, shortness of breath, palpitations, nausea, vomiting, fever or chills. Objective - Vital Signs/Intake and Output Vital Signs (last 24 hours): Temp Pulse Resp BP Pulse Ox 98.2 F 71 20 126/57 L 97 11/21/18 15:00 11/21/18 20:00 11/21/18 15:00 11/21/18 15:00 11/21/18 15:00 - Medications Medications: Current Medications Amlodipine Besylate (Norvasc) 5 mg PO DAILY [facility] Last Admin: 11/21/18 10:26 Dose: 5 mg Amoxicillin (Amoxil 500 Mg Cap) 500 mg PO Q8H [facility]; Protocol Last Admin: 11/21/18 17:05 Dose: 500 mg Apixaban (Eliquis) 5 mg PO BID [facility] Last Admin: 11/21/18 17:05 Dose: 5 mg Aspirin (Aspirin Chewable) 81 mg PO DAILY [facility] Last Admin: 11/21/18 10:26 Dose: 81 mg Calcitriol (Rocaltrol) 0.25 mcg PO DAILY [facility] Last Admin: 11/21/18 10:26 Dose: 0.25 mcg Gabapentin (Neurontin) 100 mg PO DAILY [facility] Last Admin: 11/21/18 10:26 Dose: 100 mg Ibuprofen (Motrin Tab) 800 mg PO Q12 PRN PRN Reason: Pain, moderate (4-7) Last Admin: 11/20/18 17:33 Dose: 800 mg Insulin Aspart (Novolog) 0 unit SC [facility]; Protocol Last Admin: 11/21/18 17:05 Dose: 3 units Megestrol Acetate (Megace) 400 mg PO DAILY [facility] Last Admin: 11/21/18 18:09 Dose: 400 mg Rosuvastatin Calcium (Crestor) 10 mg PO HS [facility] Last Admin: 11/20/18 21:51 Dose: 10 mg Venlafaxine HCl (Effexor Xr) 150 mg PO DAILY [facility] Last Admin: 11/21/18 10:26 Dose: 150 mg Zolpidem Tartrate (Ambien) 5 mg PO HS PRN PRN Reason: Insomnia Last Admin: 11/20/18 21:51 Dose: 5 mg - Labs Labs: 11/20/18 11:31 11/20/18 08:24 - Constitutional Appears: No Acute Distress - Head Exam Head Exam: ATRAUMATIC, NORMAL INSPECTION - Eye Exam Eye Exam: EOMI, Normal appearance - ENT Exam ENT Exam: Mucous Membranes Moist - Respiratory Exam Respiratory Exam: Clear to Ausculation Bilateral, NORMAL BREATHING PATTERN - Cardiovascular Exam Cardiovascular Exam: REGULAR RHYTHM, +S1, +S2 - GI/Abdominal Exam GI & Abdominal Exam: Soft, Normal Bowel Sounds. absent: Tenderness - Extremities Exam Extremities Exam: Normal Inspection - Neurological Exam Neurological Exam: Alert, Awake, Oriented x3 - Psychiatric Exam Psychiatric exam: Flat Affect - Skin Skin Exam: Normal Color Assessment and Plan - Assessment and Plan (Free Text) Assessment: Digoxin Toxicity - improved - Dig level on admission 3.3 --> 3.0 --> 1.9 - Recommendation - discontinue Digoxin - Beta erick if rate control needed History of Atrial Fibrillation - Continue Eliquis 5mg po daily History of HTN - Continue Amlodipine 5mg po daily - ECHO (11/19/18): EF 60-65% History of HLD - Continue Crestor 10mg po HS Case discussed with Dr. Lance Awad PGY-2 <Santhosh Lucas - Last Filed: 11/21/18 22:09> Objective - Vital Signs/Intake and Output Vital Signs (last 24 hours): Temp Pulse Resp BP Pulse Ox 98.2 F 71 20 126/57 L 97 11/21/18 15:00 11/21/18 20:00 11/21/18 15:00 11/21/18 15:00 11/21/18 15:00 - Medications Medications: Current Medications Amlodipine Besylate (Norvasc) 5 mg PO DAILY [facility] Last Admin: 11/21/18 10:26 Dose: 5 mg Amoxicillin (Amoxil 500 Mg Cap) 500 mg PO Q8H [facility]; Protocol Last Admin: 11/21/18 17:05 Dose: 500 mg Apixaban (Eliquis) 5 mg PO BID [facility] Last Admin: 11/21/18 17:05 Dose: 5 mg Aspirin (Aspirin Chewable) 81 mg PO DAILY [facility] Last Admin: 11/21/18 10:26 Dose: 81 mg Calcitriol (Rocaltrol) 0.25 mcg PO DAILY [facility] Last Admin: 11/21/18 10:26 Dose: 0.25 mcg Gabapentin (Neurontin) 100 mg PO DAILY [facility] Last Admin: 11/21/18 10:26 Dose: 100 mg Ibuprofen (Motrin Tab) 800 mg PO Q12 PRN PRN Reason: Pain, moderate (4-7) Last Admin: 11/20/18 17:33 Dose: 800 mg Insulin Aspart (Novolog) 0 unit SC [facility]; Protocol Last Admin: 11/21/18 21:29 Dose: Not Given Megestrol Acetate (Megace) 400 mg PO DAILY [facility] Last Admin: 11/21/18 18:09 Dose: 400 mg Rosuvastatin Calcium (Crestor) 10 mg PO HS [facility] Last Admin: 11/21/18 21:28 Dose: 10 mg Venlafaxine HCl (Effexor Xr) 150 mg PO DAILY [facility] Last Admin: 11/21/18 10:26 Dose: 150 mg Zolpidem Tartrate (Ambien) 5 mg PO HS PRN PRN Reason: Insomnia Last Admin: 11/21/18 21:28 Dose: 5 mg - Labs Labs: 11/20/18 11:31 11/20/18 08:24 Assessment and Plan - Assessment and Plan (Free Text) Assessment: Patient seen and evaluated personally by me. Plan of care d/w the medical insurance collector and as documented
[2018-11-22] MEDS: (Novolog) Insulin Aspart, Recombinant 100 u/ml 10 ml vial SC SCH ×2 (08:08→12:38)
[2018-11-22] MEDS: Megestrol Acetate 40 mg/ml Cup PO SCH (09:50)
[2018-11-22] MEDS: Venlafaxine 150 mg ER Cap PO SCH (09:51)
--- NOTE | 2018-11-22 10:12 | CP.PCM.PN ---
Subjective - Date & Time of Evaluation Date of Evaluation: 11/22/18 Time of Evaluation: 10:10 - Subjective Subjective: pt feels beter able to eate Objective - Vital Signs/Intake and Output Vital Signs (last 24 hours): Temp Pulse Resp BP Pulse Ox 98.8 F 76 18 122/76 94 L 11/22/18 07:00 11/22/18 09:52 11/22/18 07:00 11/22/18 09:52 11/22/18 07:00 Intake and Output: 11/22/18 11/22/18 06:59 18:59 Intake Total 250 Balance 250 - Medications Medications: Current Medications Amlodipine Besylate (Norvasc) 5 mg PO DAILY [facility] Last Admin: 11/22/18 09:50 Dose: 5 mg Amoxicillin (Amoxil 500 Mg Cap) 500 mg PO Q8H [facility]; Protocol Last Admin: 11/22/18 09:51 Dose: 500 mg Apixaban (Eliquis) 5 mg PO BID [facility] Last Admin: 11/22/18 09:50 Dose: 5 mg Aspirin (Aspirin Chewable) 81 mg PO DAILY [facility] Last Admin: 11/22/18 09:51 Dose: 81 mg Calcitriol (Rocaltrol) 0.25 mcg PO DAILY [facility] Last Admin: 11/22/18 09:50 Dose: 0.25 mcg Gabapentin (Neurontin) 100 mg PO DAILY [facility] Last Admin: 11/22/18 09:50 Dose: 100 mg Ibuprofen (Motrin Tab) 800 mg PO Q12 PRN PRN Reason: Pain, moderate (4-7) Last Admin: 11/20/18 17:33 Dose: 800 mg Insulin Aspart (Novolog) 0 unit SC [facility]; Protocol Last Admin: 11/22/18 08:08 Dose: 1 units Megestrol Acetate (Megace) 400 mg PO DAILY [facility] Last Admin: 11/22/18 09:50 Dose: 400 mg Rosuvastatin Calcium (Crestor) 10 mg PO HS [facility] Last Admin: 11/21/18 21:28 Dose: 10 mg Venlafaxine HCl (Effexor Xr) 150 mg PO DAILY [facility] Last Admin: 11/22/18 09:51 Dose: 150 mg Zolpidem Tartrate (Ambien) 5 mg PO HS PRN PRN Reason: Insomnia Last Admin: 11/21/18 21:28 Dose: 5 mg - Labs Labs: 11/20/18 11:31 11/20/18 08:24 - Constitutional Appears: Non-toxic - Head Exam Head Exam: ATRAUMATIC - Eye Exam Eye Exam: Normal appearance Pupil Exam: NORMAL ACCOMODATION - ENT Exam ENT Exam: Mucous Membranes Moist - Neck Exam Neck Exam: Full ROM - Respiratory Exam Respiratory Exam: Clear to Ausculation Bilateral - Cardiovascular Exam Cardiovascular Exam: REGULAR RHYTHM - Rectal Exam Rectal Exam: NORMAL INSPECTION - Exam Exam: NORMAL INSPECTION - Extremities Exam Extremities Exam: Normal Inspection - Back Exam Back Exam: NORMAL INSPECTION - Neurological Exam Neurological Exam: Alert, Awake - Psychiatric Exam Psychiatric exam: Normal Affect - Skin Skin Exam: Normal Color Assessment and Plan - Assessment and Plan (Free Text) Assessment: s/p dig hi s/p at fib hx gingivitis loss of apetite weekness legs Plan: disch today back to [place]
[2018-11-22] MEDS ORDERED: Multiple Vitamins Tab PO SCH (11:00)
[2018-11-22 11:38] LABS: BASO % 0.2 % (0.0-2.0); HEMOGLOBIN 10.8 g/dL (11.0-16.0); LYMPH % 29.4 % (20.0-40.0); MEAN CELL VOLUME 84.2 fL (81.0-99.0); MEAN CORPUSCULAR HEMOGLOBIN 27.2 pg (27.0-31.0); MEAN CORPUSCULAR HGB CONC 32.3 g/dL (33.0-37.0); MEAN PLATELET VOLUME 8.7 fL (7.2-11.7); MONO # 0.6 K/uL (0.0-0.8); MONO % 8.3 % (0.0-10.0); NEUT # 4.3 K/uL (1.8-7.0); NEUT % 62.1 % (50.0-75.0); NRBC % 0.1 % (0.0-2.0); RBC 3.96 Mil/uL (3.80-5.20); RED CELL DISTRIBUTION WIDTH 16.3 % (11.5-14.5); WHITE BLOOD COUNT 6.9 K/uL (4.8-10.8)
[2018-11-22 12:08] LABS: ALB/GLOB RATIO 0.9 (1.0-2.1); ALBUMIN 3.5 g/dL (3.5-5.0); ALT/SGPT < 6 U/L (9-52); AST/SGOT 22 U/L (14-36); BLOOD UREA NITROGEN 25 mg/dL (7-17); CALCIUM 8.9 mg/dl (8.6-10.4); GFR NON-AFRICAN AMERICAN 40
--- NOTE | 2018-11-22 12:41 | CP.PCM.PN ---
<Carol Awad - Last Filed: 11/22/18 17:58> Subjective - Date & Time of Evaluation Date of Evaluation: 11/22/18 Time of Evaluation: 08:00 - Subjective Subjective: Cardiology Progress Note for Dr. Lucas: Patient was seen and examined at bedside in the AM. Patient denies chest pain, shortness of breath, palpitations, nausea, vomiting, fever or chills. Objective - Vital Signs/Intake and Output Vital Signs (last 24 hours): Temp Pulse Resp BP Pulse Ox 98.8 F 76 18 122/76 94 L 11/22/18 07:00 11/22/18 09:52 11/22/18 07:00 11/22/18 09:52 11/22/18 07:00 Intake and Output: 11/22/18 11/22/18 06:59 18:59 Intake Total 250 Balance 250 - Medications Medications: Current Medications Amlodipine Besylate (Norvasc) 5 mg PO DAILY [facility] Last Admin: 11/22/18 09:50 Dose: 5 mg Amoxicillin (Amoxil 500 Mg Cap) 500 mg PO Q8H [facility]; Protocol Last Admin: 11/22/18 09:51 Dose: 500 mg Apixaban (Eliquis) 5 mg PO BID [facility] Last Admin: 11/22/18 09:50 Dose: 5 mg Aspirin (Aspirin Chewable) 81 mg PO DAILY [facility] Last Admin: 11/22/18 09:51 Dose: 81 mg Calcitriol (Rocaltrol) 0.25 mcg PO DAILY [facility] Last Admin: 11/22/18 09:50 Dose: 0.25 mcg Gabapentin (Neurontin) 100 mg PO DAILY [facility] Last Admin: 11/22/18 09:50 Dose: 100 mg Ibuprofen (Motrin Tab) 800 mg PO Q12 PRN PRN Reason: Pain, moderate (4-7) Last Admin: 11/20/18 17:33 Dose: 800 mg Insulin Aspart (Novolog) 0 unit SC [facility]; Protocol Last Admin: 11/22/18 12:38 Dose: 2 units Megestrol Acetate (Megace) 400 mg PO DAILY [facility] Last Admin: 11/22/18 09:50 Dose: 400 mg Multivitamins (Hexavitamin) 1 tab PO DAILY [facility] Last Admin: 11/22/18 10:47 Dose: 1 tab Rosuvastatin Calcium (Crestor) 10 mg PO HS [facility] Last Admin: 11/21/18 21:28 Dose: 10 mg Venlafaxine HCl (Effexor Xr) 150 mg PO DAILY [facility] Last Admin: 11/22/18 09:51 Dose: 150 mg Zolpidem Tartrate (Ambien) 5 mg PO HS PRN PRN Reason: Insomnia Last Admin: 11/21/18 21:28 Dose: 5 mg - Labs Labs: 11/22/18 11:25 11/22/18 11:25 - Constitutional Appears: No Acute Distress - Head Exam Head Exam: ATRAUMATIC, NORMAL INSPECTION - Eye Exam Eye Exam: EOMI, Normal appearance - ENT Exam ENT Exam: Mucous Membranes Moist - Respiratory Exam Respiratory Exam: Clear to Ausculation Bilateral, NORMAL BREATHING PATTERN - Cardiovascular Exam Cardiovascular Exam: REGULAR RHYTHM, +S1, +S2 - GI/Abdominal Exam GI & Abdominal Exam: Soft, Normal Bowel Sounds. absent: Tenderness - Extremities Exam Extremities Exam: Normal Inspection - Neurological Exam Neurological Exam: Alert, Awake, Oriented x3 - Psychiatric Exam Psychiatric exam: Flat Affect - Skin Skin Exam: Normal Color Assessment and Plan - Assessment and Plan (Free Text) Assessment: Digoxin Toxicity - improved - Dig level on admission 3.3 --> 3.0 --> 1.9 --> 1.2 - Recommendation - discontinue Digoxin - Beta erick if rate control needed History of Atrial Fibrillation - Continue Eliquis 5mg po daily History of HTN - Continue Amlodipine 5mg po daily - ECHO (11/19/18): EF 60-65% History of HLD - Continue Crestor 10mg po HS No further cardiac work up recommended at this time. Case discussed with Dr. Lance Awad PGY-2 <Santhosh Lucas - Last Filed: 11/22/18 22:31> Objective - Vital Signs/Intake and Output Vital Signs (last 24 hours): Temp Pulse Resp BP Pulse Ox 99 F 78 20 115/58 L 97 11/22/18 15:00 11/22/18 15:00 11/22/18 15:00 11/22/18 15:00 11/22/18 15:00 Intake and Output: 11/22/18 11/23/18 18:59 06:59 Intake Total 250 Balance 250 - Labs Labs: 11/22/18 11:25 11/22/18 11:25 Assessment and Plan - Assessment and Plan (Free Text) Assessment: Patient seen and evaluated personally by me. Plan of care d/w the bilingual medical assistant and as documented
--- NOTE | 2018-11-22 15:04 | CP.PCM.PN ---
Subjective - Date & Time of Evaluation Date of Evaluation: 11/22/18 Time of Evaluation: 15:03 Objective - Vital Signs/Intake and Output Vital Signs (last 24 hours): Temp Pulse Resp BP Pulse Ox 98.8 F 76 18 122/76 94 L 11/22/18 07:00 11/22/18 09:52 11/22/18 07:00 11/22/18 09:52 11/22/18 07:00 Intake and Output: 11/22/18 11/22/18 06:59 18:59 Intake Total 250 250 Balance 250 250 - Medications Medications: Current Medications Amlodipine Besylate (Norvasc) 5 mg PO DAILY [facility] Last Admin: 11/22/18 09:50 Dose: 5 mg Amoxicillin (Amoxil 500 Mg Cap) 500 mg PO Q8H [facility]; Protocol Last Admin: 11/22/18 09:51 Dose: 500 mg Apixaban (Eliquis) 5 mg PO BID [facility] Last Admin: 11/22/18 09:50 Dose: 5 mg Aspirin (Aspirin Chewable) 81 mg PO DAILY [facility] Last Admin: 11/22/18 09:51 Dose: 81 mg Calcitriol (Rocaltrol) 0.25 mcg PO DAILY [facility] Last Admin: 11/22/18 09:50 Dose: 0.25 mcg Gabapentin (Neurontin) 100 mg PO DAILY [facility] Last Admin: 11/22/18 09:50 Dose: 100 mg Ibuprofen (Motrin Tab) 800 mg PO Q12 PRN PRN Reason: Pain, moderate (4-7) Last Admin: 11/20/18 17:33 Dose: 800 mg Insulin Aspart (Novolog) 0 unit SC [facility]; Protocol Last Admin: 11/22/18 12:38 Dose: 2 units Megestrol Acetate (Megace) 400 mg PO DAILY [facility] Last Admin: 11/22/18 09:50 Dose: 400 mg Multivitamins (Hexavitamin) 1 tab PO DAILY [facility] Last Admin: 11/22/18 10:47 Dose: 1 tab Rosuvastatin Calcium (Crestor) 10 mg PO HS [facility] Last Admin: 11/21/18 21:28 Dose: 10 mg Venlafaxine HCl (Effexor Xr) 150 mg PO DAILY [facility] Last Admin: 11/22/18 09:51 Dose: 150 mg Zolpidem Tartrate (Ambien) 5 mg PO HS PRN PRN Reason: Insomnia Last Admin: 11/21/18 21:28 Dose: 5 mg - Labs Labs: 11/22/18 11:25 11/22/18 11:25 Assessment and Plan - Assessment and Plan (Free Text) Assessment: PLACE UNDER THE SERVICE OF DR DE LA CRUZ AT [facility] ----CALL FOR ADMITTING ORDER CONTINUE HOME MEDICATION NO DIGIOXIN PER DR MOON (PACKAGE MAKER) ACTIVITY TOLERATED CALL DR DE LA CRUZ FO FURTHER ORDER
[2018-11-22 16:48] VITALS: BP 115/58; PULSE 78; RESP 20; TEMP 99; O2SAT 97
--- NOTE | 2018-11-25 14:02 | DS ---
HOSPITAL COURSE: The patient was sent from rehabilitation for high digoxin levels. At that time, she came in here. Her vitals were stable, she was alert and oriented, had generalized weakness. Her temperature was 98, pulse 66, blood pressure 118/60. Hemoglobin 10.3/31.8. Sugar 132, BUN 26 and creatinine 1.4. Rest of the labs unremarkable except for digoxin level was 3. The patient's EKG did not show any changes or any abnormalities. She was put on monitor and she was followed up daily. She was comfortable. She was seen by Cardiology, Dr. Santhosh Lucas, and he suggested to hold the digoxin and keep monitoring the numbers. The patient was comfortable, improving, and she was feeling better. She sometimes had no appetite. Her mouth was hurting, so I gave her something to help her appetite and I for breakfast and she was also advised for mouthwash and she was sent back to the rehabilitation to continue her rehab on 11/22/2018 with all her medications to continue. She was taking amlodipine for blood pressure, amoxicillin, Eliquis for history of atrial fibrillation, Rocaltrol, Neurontin, ibuprofen, insulin, Megace, multiple vitamins, Crestor, Effexor for depression, and Ambien to sleep. FINAL DIAGNOSES: Digoxin, high dose, controlled; history of atrial fibrillation; history of cerebrovascular accident; generalized weakness; gingivitis of the mouth and diabetes mellitus. Sol Vasquez MD
== END 2018-11-22 21:46 | DRG 293 ==
LOC: C.ER 12:17 → C.9E 15:04 → C.6T 18:11 → C.9E 18:15 → C.6T 20:12
PROVIDERS: ADMIT Internal Medicine; ATTEND Internal Medicine
DX: I13.0 Hypertensive heart and chronic kidney disease with heart failure and stage 1 through stage 4 chronic kidney disease, or unspecified chronic kidney disease (principal); R13.10 Dysphagia, unspecified; R53.1 Weakness; I69.398 Other sequelae of cerebral infarction; T46.0X5A Adverse effect of cardiac-stimulant glycosides and drugs of similar action, initial encounter; E03.9 Hypothyroidism, unspecified; K05.10 Chronic gingivitis, plaque induced; E11.22 Type 2 diabetes mellitus with diabetic chronic kidney disease; E78.00 Pure hypercholesterolemia, unspecified; E78.5 Hyperlipidemia, unspecified; I25.10 Atherosclerotic heart disease of native coronary artery without angina pectoris; R33.9 Retention of urine, unspecified; I48.91 Unspecified atrial fibrillation; I50.9 Heart failure, unspecified; N18.9 Chronic kidney disease, unspecified; Z79.01 Long term (current) use of anticoagulants; Z96.649 Presence of unspecified artificial hip joint

== ENCOUNTER 2018-12-22 19:08 | Inpatient (IN) | payer MEDICARE, MEDICAID ==
[2018-12-22 19:08] VITALS: BMI 29.0
--- NOTE | 2018-12-22 19:38 | C.PDOC ---
History Of Present Illness The patient presents to the ED for evaluation of nausea, vomiting and abdominal pain which began yesterday. Patient is noted to be febrile in the ED. She denies diarrhea, back pain. Time Seen by Provider: 12/22/18 19:37 Chief Complaint (Nursing): Abdominal Pain History Per: Patient History/Exam Limitations: no limitations Onset/Duration Of Symptoms: Hrs Current Symptoms Are (Timing): Still Present Severity: Mild Pain Scale Rating Of: 3 Location Of Pain/Discomfort: Diffuse Radiation Of Pain To:: None Quality Of Discomfort: "Pain" Associated Symptoms: Nausea, Vomiting. denies: Diarrhea, Back Pain Exacerbating Factors: None Alleviating Factors: None Last Bowel Movement: Today Recent travel outside of the [place]: No Additional History Per: Patient Abnormal Vaginal Bleeding: No Past Medical History Reviewed: Historical Data, Nursing Documentation, Vital Signs Vital Signs: Last Vital Signs Temp 104.4 F H 12/22/18 19:34 Pulse 119 H 12/22/18 19:34 Resp 20 12/22/18 19:34 BP 121/67 12/22/18 19:34 Pulse Ox 92 L 12/22/18 19:34 - Medical History PMH: Atrial Fibrillation, HTN, Hypercholesterolemia, Hypothyroidism, Chronic Kidney Disease Surgical History: No Surg Hx - [facility] GROUP PSYCHOTHERAPY (12/14/16) INDIVIDUAL PSYCHOTHERAPY, SUPPORTIVE (12/14/16) Family History: States: Unknown Family Hx - Social History Hx Alcohol Use: No Hx Substance Use: No - Immunization History Hx Tetanus Toxoid Vaccination: No Hx Influenza Vaccination: No Hx Pneumococcal Vaccination: No Review Of Systems Constitutional: Positive for: Fever, Malaise Eyes: Negative for: Vision Change ENT: Negative for: Throat Pain Cardiovascular: Negative for: Chest Pain, Palpitations Respiratory: Negative for: Cough, Shortness of Breath Gastrointestinal: Positive for: Nausea, Vomiting, Abdominal Pain. Negative for: Diarrhea, Constipation Genitourinary: Negative for: Dysuria, Frequency, Hematuria Skin: Negative for: Rash, Lesions, Jaundice, Bruising Neurological: Negative for: Weakness, Numbness Psych: Negative for: Anxiety Physical Exam - Physical Exam Appears: Non-toxic, In Acute Distress Skin: Warm, Dry, Other (febrile ) Head: Normacephalic Eye(s): bilateral: Normal Inspection Oral Mucosa: Dry Neck: Supple Chest: Symmetrical, No Deformity, No Tenderness Cardiovascular: Rhythm Regular, No Murmur Respiratory: No Rales, Rhonchi (scattered ), No Wheezing Gastrointestinal/Abdominal: Soft, Tenderness (diffuse ), No Guarding, No Rebound, Other (large palpable bowel in right lower quadrant ) Back: No CVA Tenderness Extremity: Normal ROM, Pedal Edema (trace), Capillary Refill (less than 2 seconds ) Extremity: Bilateral: Atraumatic Pulses: Left Dorsalis Pedis: Normal, Right Dorsalis Pedis: Normal Neurological/Psych: Oriented x3 Gait: Unable To Assess ED Course And Treatment - Laboratory Results Result Diagrams: 12/22/18 19:48 12/22/18 19:48 ECG: Interpreted By Me, Viewed By Me ECG Rhythm: Sinus Tachycardia (119), Nonspecific Changes O2 Sat by Pulse Oximetry: 92 Pulse Ox Interpretation: Abnormal - Radiology CXR: Interpreted by Me, Viewed By Me CXR Interpretation: Yes: Infiltrates (? b/l ), Other (slighly worse from 10/21/18). No: Fracture, Cardiomegaly - CT Scan/US CT A/P Other Rad Studies (CT/US): Read By Radiologist, Radiology Report Reviewed CT/US Interpretation: EXAM: CT Abdomen and Pelvis with IV contrast. CLINICAL HISTORY: ABD PAIN/SEPSIS. TECHNIQUE: Axial computed tomography images of the abdomen and pelvis with intravenous contrast. 0.00 mGy-cm. CONTRAST: With; VISI 320 100MLS. COMPARISON: None provided. FINDINGS: LUNG BASES: There are patchy ground glass opacities near both lung bases which may represent early infiltrates, atelectasis perhaps pulmonary edema. There is some interlobular septal thickening which favors pulmonary edema. The visualized heart appears mildly to moderately enlarged. LIVER: Mild diffuse fatty infiltration of liver. Liver is enlarged measuring 21 cm anteroposterior. GALLBLADDER AND BILE DUCTS: Multiple small gallstones in the gallbladder. PANCREAS: Unremarkable. SPLEEN: Spleen is borderline in size measuring 12.5 cm craniocaudal. ADRENAL GLANDS: There is a 2 cm left adrenal nodule, incompletely characterized on this postcontrast study. If indicated, this could be further evaluated with adrenal CT or adrenal MRI. KIDNEYS, URETERS, AND BLADDER: Both kidneys demonstrate mild cortical atrophy. Small bilateral renal cysts. No hydronephrosis bilaterally. STOMACH AND BOWEL: There is a small to moderate hiatal hernia which contains fluid. Please correlate for the possibility of reflux and vomiting. There is diffuse wall thickening the colon compatible with a diffuse colitis. This could have infectious or inflammatory, less likely ischemic etiology. Please correlate clinically. No evidence for small bowel obstruction. APPENDIX: No evidence of acute appendicitis on CT examination. PERITONEUM: No free fluid. No free air. LYMPH NODES: There is gastrohepatic, and retroperitoneal lymphadenopathy. There are increased number of normal size masses and tear of nodes elsewhere. REPRODUCTIVE: Unremarkable as visualized. VASCULATURE: Abdominal aorta and branch is demonstrate moderate atherosclerotic calcification. BONES: There is an intramedullary jennifer and dynamic screw combination traverse an old right hip fracture. There is a left hip prosthesis. These metallic implants lead to significant beam hardening artifact and substantially limit evaluation in the pelvis. Mild to moderate multilevel degenerative spine changes. Mild diffuse osteopenia. MISCELLANEOUS: There is fluid in the rectosigmoid suggesting diarrhea. There is minimal presacral edema and there is mild anasarca in the flank and buttock regions. IMPRESSION: 1. There is diffuse wall thickening the colon compatible with a diffuse colitis. This could have infectious or inflammatory, less likely ischemic etiology. Please correlate clinically. 2. There are patchy ground glass opacities near both lung bases which may represent early infiltrates, atelectasis perhaps pulmonary edema. There is some interlobular septal thickening which favors pulmonary edema. 3. The visualized heart appears mildly to moderately enlarged. 4. There is a 2 cm left adrenal nodule, incompletely characterized on this postcontrast study. If indicated, this could be further evaluated with adrenal CT or adrenal MRI. 5. There is gastrohepatic, and retroperitoneal lymphadenopathy. There are increased number of normal size masses and tear of nodes elsewhere. 6. There is an intramedullary jennifer and dynamic screw combination traverse an old right hip fracture. There is a left hip prosthesis. These metallic implants lead to significant beam hardening artifact and substantially limit evaluation in the pelvis. 7. There is fluid in the rectosigmoid suggesting diarrhea. 8. Additional findings as described above. Progress Note: Bloodwork, urinalysis, EKG, CXR ordered and reviewed. Zosyn IVPB, Vancomycin IVPB, Tylenol NM, Zofran IVP, and IV Fluids given. Critical Care Time - Critical Care Note Total Time (in mins): 30 Documented critical care: time excludes all time spent performing seperately billable procedures. Disposition Discussed With : Sol Vasquez Comment: accepted the pt on her service and took over the care at 11:44 PM Doctor Will See Patient In The: Hospital Counseled Patient/Family Regarding: Studies Performed, Diagnosis - Disposition Disposition: HOSPITALIZED Disposition Time: 19:37 Condition: GUARDED Forms: [facility] ([place]) - POA Present On Arrival: Poor Glycemic Control - Clinical Impression Clinical Impression: Abdominal pain, Sepsis, Colitis - Scribe Statement The provider has reviewed the documentation as recorded by the Scribe (Naomi Holder) Provider Attestation: All medical record entries made by the Scribe were at my direction and personally dictated by me. I have reviewed the chart and agree that the record accurately reflects my personal performance of the history, physical exam, medical decision making, and the department course for this patient. I have also personally directed, reviewed, and agree with the discharge instructions and disposition. Decision To Admit - Pt Status Changed To: Hospital Disposition Of: Inpatient - Admit Certification Admit to Inpatient:: After my assessment, the patient will require hospitaliza tion for at least two midnights. This is because of the severity of symptoms shown, intensity of services needed, and/or the medical risk in this patient being treated as an outpatient. - InPatient: Physician Admission Certification:: After my assessment, the patient will require hospitalization for at least two midnights. This is because of the severity of symptoms shown, intensity of services needed, and/or the medical risk in this patient being treated as an outpatient. - . Bed Request Type: Telemetry Admitting Physician: Sol Vasquez Patient Diagnosis: Abdominal pain, Sepsis, Colitis
[2018-12-22] MEDS ORDERED: Sodium Chloride 0.9% 2,000 ML IV ONE (19:39)
[2018-12-22] MEDS ORDERED: Piperacillin/Tazobact 3.375 gm 100 ML IVPB STA (19:46)
[2018-12-22] MEDS ORDERED: Vancomycin 1 GM 1 GM/250 ML BAG IVPB STA (19:46)
[2018-12-22 19:50] LABS: VENOUS BLOOD GAS BASE EXCESS -7.5 mmol/L (0.0-2.0); VENOUS BLOOD GAS PCO2 25 mmHg (40-60); VENOUS BLOOD GAS PO2 36 mm/Hg (30-55)
[2018-12-22 19:58] LABS: BASO % 0.1 % (0.0-2.0); HEMOGLOBIN 10.1 g/dL (11.0-16.0); LYMPH # 1.4 K/uL (1.0-4.3); LYMPH % 5.9 % (20.0-40.0); MEAN CORPUSCULAR HEMOGLOBIN 25.8 pg (27.0-31.0); MEAN CORPUSCULAR HGB CONC 31.4 g/dL (33.0-37.0); MEAN PLATELET VOLUME 8.8 fL (7.2-11.7); MONO % 4.3 % (0.0-10.0); NEUT # 20.5 K/uL (1.8-7.0); NEUT % 89.7 % (50.0-75.0); PLATELET COUNT 490 K/uL (130-400); RBC 3.92 Mil/uL (3.80-5.20); RED CELL DISTRIBUTION WIDTH 17.2 % (11.5-14.5)
[2018-12-22] MEDS ORDERED: Vancomycin 1 GM 1 GM/250 ML BAG IVPB ONE (19:59)
[2018-12-22] MEDS ORDERED: Piperacillin/Tazobact 3.375 gm 100 ML IVPB ONE (19:59)
[2018-12-22 20:08] LABS: INR 1.6; PROTHROMBIN TIME 17.3 SECONDS (9.7-12.2)
[2018-12-22 20:12] LABS: MEAN CELL VOLUME 81.9 fL (81.0-99.0); WHITE BLOOD COUNT 22.9 K/uL (4.8-10.8)
[2018-12-22 20:18] LABS: URINE BACTERIA RARE (<OCC); URINE BILIRUBIN NEGATIVE (NEGATIVE); URINE BLOOD NEGATIVE (NEGATIVE); URINE CLARITY Hazy (Clear); URINE COLOR Amber (YELLOW); URINE GLUCOSE (UA) NORMAL (Normal); URINE LEUKOCYTE ESTERASE NEG Leu/uL (Negative); URINE PROTEIN NEGATIVE (NEGATIVE)
[2018-12-22 20:28] LABS: ALB/GLOB RATIO 0.9 (1.0-2.1); ALBUMIN 3.7 g/dL (3.5-5.0); ALT/SGPT < 6 U/L (9-52); AST/SGOT 28 U/L (14-36); BLOOD UREA NITROGEN 35 mg/dL (7-17); CALCIUM 8.6 mg/dl (8.6-10.4); GFR NON-AFRICAN AMERICAN 20
[2018-12-22 20:38] LABS: BANDS 6 % (0-2); LYMPHOCYTE 6 % (20-40); MONOCYTE 6 % (0-10); NEUTROPHIL 82 % (50-75); TOTAL CELLS COUNTED 100
[2018-12-22 20:39] LABS: ANISOCYTOSIS SLIGHT; HYPOCHROMIC SLIGHT; PLATELET ESTIMATE INCREASED (NORMAL); POIKILOCYTOSIS SLIGHT
[2018-12-22] MEDS ORDERED: Iodixanol 320 MG/ML 100 ML BOTTLE IV ONE (21:24)
[2018-12-22] MEDS ORDERED: metroNIDAZOLE IV 500 mg/100 ml 500 MG/100 ML BAG IVPB SCH (23:00)
[2018-12-23 00:07] LABS: VENOUS BLOOD GAS PCO2 27 mmHg (40-60); VENOUS BLOOD GAS PO2 48 mm/Hg (30-55); VENOUS BLOOD PH 7.31 (7.32-7.43)
[2018-12-23] MEDS: Dextrose 5%/0.45% NS 1,000 ML IV SCH ×2 (01:36→15:19)
[2018-12-23 07:45] LABS: BASO % 0.1 % (0.0-2.0); LYMPH # 1.4 K/uL (1.0-4.3); LYMPH % 5.2 % (20.0-40.0); MEAN CELL VOLUME 82.5 fL (81.0-99.0); MEAN CORPUSCULAR HEMOGLOBIN 26.2 pg (27.0-31.0); MEAN CORPUSCULAR HGB CONC 31.8 g/dL (33.0-37.0); MEAN PLATELET VOLUME 8.6 fL (7.2-11.7); MONO # 1.1 K/uL (0.0-0.8); MONO % 4.2 % (0.0-10.0); NEUT % 90.5 % (50.0-75.0); PLATELET COUNT 426 K/uL (130-400); RBC 3.45 Mil/uL (3.80-5.20); RED CELL DISTRIBUTION WIDTH 17.5 % (11.5-14.5); WHITE BLOOD COUNT 26.6 K/uL (4.8-10.8)
[2018-12-23 07:55] LABS: ALB/GLOB RATIO 0.8 (1.0-2.1); ALBUMIN 2.8 g/dL (3.5-5.0); CALCIUM 7.3 mg/dl (8.6-10.4)
[2018-12-23 08:10] LABS: FREE T4 1.19 ng/dL (0.78-2.19)
--- NOTE | 2018-12-23 08:22 | RAD ---
Date of service: 12/22/2018 HISTORY: Sepsis Patient COMPARISON: 10/21/2018. FINDINGS: LUNGS: The lungs are well inflated. There is patchy airspace disease in the right lower lobe. PLEURA: No pleural effusions or pneumothorax. CARDIOVASCULAR: There is mild cardiomegaly. There are aortic atherosclerotic calcifications present. OSSEOUS STRUCTURES: Within normal limits for the patient's age. VISUALIZED UPPER ABDOMEN: Normal. OTHER FINDINGS: None. IMPRESSION: Patchy airspace disease in the right lower lobe may represent subsegmental atelectasis however superimposed pneumonia cannot be excluded. Follow-up is advised.
[2018-12-23 09:43] LABS: BANDS 5 % (0-2); LYMPHOCYTE 5 % (20-40); MONOCYTE 1 % (0-10); NEUTROPHIL 89 % (50-75); TOTAL CELLS COUNTED 100
[2018-12-23 09:45] LABS: ANISOCYTOSIS SLIGHT; HYPOCHROMIC SLIGHT; PLATELET ESTIMATE NORMAL (NORMAL); POLYCHROMIC SLIGHT
--- NOTE | 2018-12-23 11:50 | CT ---
Date of service: 12/22/2018 PROCEDURE: CT Abdomen and Pelvis with contrast HISTORY: abd pain , sepsis COMPARISON: Chest x-ray performed 12/22/18 TECHNIQUE: Contrast dose: 75 mL Visipaque [address] Montoya approved injection of IV contrast and was aware of patient's abnormal renal function. Radiation dose: Total exam DLP = 771.07 mGy-cm. This CT exam was performed using one or more of the following dose reduction techniques: Automated exposure control, adjustment of the mA and/or kV according to patient size, and/or use of iterative reconstruction technique. FINDINGS: LOWER THORAX: Bibasilar lower lobe patchy and ground glass opacities. No visible pleural effusion or pneumothorax. Small to moderate hiatal hernia and gastroesophageal reflux. LIVER: Hepatomegaly. Hypoattenuation of the liver compatible with hepatic steatosis. GALLBLADDER AND BILE DUCTS: Cholelithiasis. PANCREAS: Unremarkable. SPLEEN: Borderline splenomegaly. ADRENALS: 14 x 13 mm left adrenal gland nodule, indeterminate. The right adrenal gland appears unremarkable. KIDNEYS AND URETERS: The kidneys enhance symmetrically. No hydronephrosis or obstructing calculus identified. Bilateral renal cysts. VASCULATURE: No aortic aneurysm. Atherosclerotic calcifications of the aorta and branches. BOWEL: Stomach is nondistended. Lack of oral contrast limits evaluation for bowel pathology. Bowel loops appear within normal limits of caliber without evidence of obstruction. Colonic wall thickening raises concern for colitis (infectious/inflammatory etiologies favored). APPENDIX: No secondary signs of acute appendicitis. PERITONEUM: Small perihepatic ascites. Small pelvic free fluid. No definite free air. LYMPH NODES: Extensive adenopathy predominantly mesenteric/gastrohepatic, and retroperitoneal. BLADDER: Unremarkable. REPRODUCTIVE: Unremarkable. BONES: Scoliosis. Osseous demineralization. Bilateral partially imaged postsurgical changes of femurs with intramedullary jennifer and dynamic screw fixation of the right hip and left hip arthroplasty. 4 mm anterolisthesis of L4 on L5. OTHER FINDINGS: None. IMPRESSION: Colonic wall thickening concerning for colitis, infectious/inflammatory etiologies favored. Correlate clinically. Bibasilar lung patchy and ground-glass pulmonary opacities. Small to moderate hiatal hernia and gastroesophageal reflux. Hepatomegaly. Hepatic steatosis. Cholelithiasis. Borderline splenomegaly. Indeterminate left adrenal gland nodule measures approximately 14 x 13 mm. Dedicated MRI may be considered for further characterization. Small perihepatic ascites. Small pelvic free fluid. Extensive adenopathy predominantly mesenteric/gastrohepatic, and retroperitoneal. Preliminary impression was provided by [employer].
[2018-12-23] MEDS: metroNIDAZOLE IV 500 mg/100 ml 500 MG/100 ML BAG IVPB SCH ×2 (15:18→23:35)
[2018-12-23] MEDS: (Novolin R) Insulin Human Regular 100 units/ml vial SC SCH ×2 (17:10→21:51)
[2018-12-23] MEDS: Ciprofloxacin 400mg/200ml D5W 400 MG/200 ML BAG IVPB SCH (17:10)
[2018-12-23 23:32] LABS: ARTERIAL BLOOD GAS HCO3 15.3 mmol/L (21-28); ARTERIAL BLOOD GAS O2 SAT 95.6 % (95-98); ARTERIAL BLOOD GAS PCO2 18 mm/Hg (35-45); ARTERIAL BLOOD GAS PH 7.38 (7.35-7.45); ARTERIAL BLOOD GAS PO2 67 mm/Hg (80-100); ARTERIAL BLOOD GAS TCO2 11.2 mmol/L (22-28)
[2018-12-24] MEDS ORDERED: Digoxin 500 mcg/2ml (0.5 mg/2ml) Inj IVP SCH (01:11)
[2018-12-24] MEDS: Dextrose 5%/0.45% NS 1,000 ML IV SCH (04:00)
[2018-12-24] MEDS: Ciprofloxacin 400mg/200ml D5W 400 MG/200 ML BAG IVPB SCH (04:02)
[2018-12-24] MEDS: (Novolin R) Insulin Human Regular 100 units/ml vial SC SCH ×4 (07:30→22:00)
[2018-12-24] MEDS ORDERED: Dextrose 5%/0.45% NS 1,000 ML IV SCH (07:50)
[2018-12-24] MEDS: metroNIDAZOLE IV 500 mg/100 ml 500 MG/100 ML BAG IVPB SCH ×2 (08:13→16:35)
[2018-12-24 08:31] LABS: BASO % 0.2 % (0.0-2.0); EOS % 0.1 % (0.0-4.0); LYMPH # 1.4 K/uL (1.0-4.3); LYMPH % 5.1 % (20.0-40.0); MEAN CELL VOLUME 82.4 fL (81.0-99.0); MEAN CORPUSCULAR HEMOGLOBIN 25.6 pg (27.0-31.0); MEAN CORPUSCULAR HGB CONC 31.1 g/dL (33.0-37.0); MEAN PLATELET VOLUME 9.1 fL (7.2-11.7); MONO # 1.2 K/uL (0.0-0.8); MONO % 4.2 % (0.0-10.0); NEUT % 90.4 % (50.0-75.0); PLATELET COUNT 446 K/uL (130-400); RBC 3.91 Mil/uL (3.80-5.20); RED CELL DISTRIBUTION WIDTH 18.1 % (11.5-14.5); WHITE BLOOD COUNT 27.7 K/uL (4.8-10.8)
[2018-12-24 09:01] LABS: ALB/GLOB RATIO 0.8 (1.0-2.1); ALBUMIN 2.6 g/dL (3.5-5.0); CALCIUM 6.9 mg/dl (8.6-10.4)
[2018-12-24 09:24] LABS: BANDS 5 % (0-2); LYMPHOCYTE 5 % (20-40); MONOCYTE 4 % (0-10); NEUTROPHIL 86 % (50-75); TOTAL CELLS COUNTED 100
[2018-12-24 09:25] LABS: ANISOCYTOSIS SLIGHT; PLATELET ESTIMATE SLIGHTLY INCREASED (NORMAL); POIKILOCYTOSIS SLIGHT
[2018-12-24 09:26] LABS: PLATELET CLUMPS PRESENT
[2018-12-24] MEDS ORDERED: Piperacillin/Tazobact 2.25 GM in Sodium Chloride 100 ML IVPB SCH (09:30)
[2018-12-24] MEDS ORDERED: Sodium Chloride 0.9% 500 ML IV ONE (09:31)
[2018-12-24] MEDS ORDERED: Glucagon Recombinant 1 mg Inj IM PRN (09:34)
[2018-12-24] MEDS ORDERED: Dextrose 50% SYRINGE Inj (50 ml) IV PRN (09:34)
--- NOTE | 2018-12-24 09:47 | PCM.SEPTIC ---
<AwadHermelinda stackycrayna DunbarMisa - Last Filed: 12/24/18 09:44> Sepsis Progress Note - Reassessment Type Date of Evaluation: 12/24/18 Time of Evaluation: 09:30 Reassessment Type: Non-invasive reassessment - Non Invasive Reassessment Were the most recent vital sign reviewed: Yes Vital Sign (Latest): Temp Pulse Resp BP Pulse Ox 98.1 F 110 H 18 125/65 95 12/24/18 09:00 12/24/18 09:00 12/24/18 09:00 12/24/18 09:00 12/24/18 09:00 Cardiovascular: Yes: Tachycardia, Irregularly Irregular Respiratory: No: Accessory Muscle Use, Respiratory Distress Capillary Refill: Normal (Less than 2 sec) Skin: Dry, Diaphoretic <Loyda Martin V - Last Filed: 12/24/18 11:29> Sepsis Progress Note - Non Invasive Reassessment Vital Sign (Latest): Temp Pulse Resp BP Pulse Ox 98.1 F 110 H 18 125/65 95 12/24/18 09:00 12/24/18 09:00 12/24/18 09:00 12/24/18 09:00 12/24/18 09:00 Attending/Attestation - Attestation I have personally seen and examined this patient.: Yes I have fully participated in the care of the patient.: Yes I have reviewed all pertinent clinical information, including history, physical exam and plan: Yes Notes (Text): Responded to code sepsis called by nursing staff lactic acid 2.5 No H&P available at the time of assessment. Assistance using a supervisor telephone answering service via [employer]. This is a 73-year-old female past medical history noted for dementia, hip replacement, prior history of dig toxicity, congestive heart failure, atrial fibrillation, lipid disorder, acute on chronic renal disease per nursing staff called for CODE STATUS sepsis for lactic acid 2.5. Patient noted for Reiger's and mild tachypnea on exam. Patient reports she is feeling well. Patient unable to provide further history secondary to dementia and I believe also a language barrier in spite of use of supervisor telephone answering service. Patient belly is soft distended and guarding Months Assessment. Repeated blood work, ABG, 2 antibiotics per code sepsis protocol which are cefepime and Flagyl. There is a concern of lack of urine output when discussing with nursing staff. We have inserted Tesfaye there is urine noted. Noting worsening renal function unclear if it is related to sepsis or due to contrast-induced nephropathy given the patient has had a r ecent CAT scan with IV contrast. We have attempted to call PMD twice however voicemail is full. Consulted for critical care and given the sepsis worsening renal function and concern over the abdomen. Discussed with ICU. Patient accepted to the unit. Concern for possible C. difficile colitis. We have reviewed medications stop the prior medications noted including Imodium, Reglan, discontinue heparin DVT prophylaxis. Patient was recently discharged from half-way per nursing staff and we have also per reviewed briefly the EMR was able to get further history. Patient also has a prior history of dig toxicity in August where she was in the intensive care unit. Per review of labs does have a persistent white count increasing renal function and did repeat lactic acid per code sepsis protocol. I did speak with GI came shortly after the code sepsis and patient accepted to the unit concern for possible surgical abdomen as well as obtain nephrology (Dr. Solis) who has seen patient in last admission. GI has spoken with radiology awaiting read of the repeat CAT scan that was ordered earlier. I did had order a chest x-ray as well no free air during the time of code sepsis. He was found up from staff earlier that patient is being by Dr. Dr. Vasquez this was updated in the EMR. Nursing communication noted as well. Dr. Rivera had reported to the resident to call whomever is environmental epidemiologist for surgery. Dr. Newell is environmental epidemiologist order placed in the computer. Dr. Brothers had added Vanco 250 p.o. 4 times daily today to start to cover for C. difficile colitis in addition to the IV Flagyl that was previously on board.
[2018-12-24 09:56] LABS: ARTERIAL BLOOD GAS O2 SAT 98.8 % (95-98); ARTERIAL BLOOD GAS PCO2 17 mm/Hg (35-45); ARTERIAL BLOOD GAS PH 7.37 (7.35-7.45); ARTERIAL BLOOD GAS PO2 120 mm/Hg (80-100); ARTERIAL BLOOD GAS TCO2 10.3 mmol/L (22-28)
[2018-12-24 09:59] LABS: BASO # 0.1 K/uL (0.0-0.2); BASO % 0.2 % (0.0-2.0); EOS # 0.1 K/uL (0.0-0.7); EOS % 0.2 % (0.0-4.0); HEMOGLOBIN 10.2 g/dL (11.0-16.0); LYMPH # 1.7 K/uL (1.0-4.3); MEAN CELL VOLUME 82.4 fL (81.0-99.0); MEAN CORPUSCULAR HEMOGLOBIN 25.8 pg (27.0-31.0); MEAN CORPUSCULAR HGB CONC 31.3 g/dL (33.0-37.0); MEAN PLATELET VOLUME 8.8 fL (7.2-11.7); MONO # 1.1 K/uL (0.0-0.8); MONO % 3.3 % (0.0-10.0); NEUT # 30.4 K/uL (1.8-7.0); NEUT % 91.3 % (50.0-75.0); RBC 3.96 Mil/uL (3.80-5.20); RED CELL DISTRIBUTION WIDTH 17.9 % (11.5-14.5); WHITE BLOOD COUNT 33.3 K/uL (4.8-10.8)
[2018-12-24] MEDS ORDERED: Sodium Bicarbonate (8.4%) 50 Meq Syringe IVP ONE (10:10)
[2018-12-24 10:12] LABS: ALB/GLOB RATIO 0.8 (1.0-2.1); ALBUMIN 2.7 g/dL (3.5-5.0); ALT/SGPT 8 U/L (9-52); AST/SGOT 47 U/L (14-36); BLOOD UREA NITROGEN 43 mg/dL (7-17); GFR NON-AFRICAN AMERICAN 13
[2018-12-24 10:17] LABS: B-TYPE NATRIURETIC PEPTIDE 8150 pg/mL (0-900)
--- NOTE | 2018-12-24 10:35 | CP.PCM.CON ---
History of Present Illness - History of Present Illness History of Present Illness: 73 y/o female with pmx of heart failure, h/o CKD, A-fib presents to [facility] with c/o high dig level. Patient was later treted for sepsis. Now worsening leukocytosis and distended abdomen. Sepsis code called. ICU consulted for same. DM II, CAD, atrial fibrillation, dysphagia, HTN, urinary retention, CVA, hypothyroidism allergies: NKDA SH: denies smoking or ETOH Review of Systems - Cardiovascular Cardiovascular: Irregular Heart Rhythm - Gastrointestinal Gastrointestinal: Abdominal Pain, Constipation, Loose Stools. absent: Hematemesis, Melena, Nausea, Temesmus Past Patient History - Infectious Disease Hx of Infectious Diseases: None - Past Medical History & Family History Past Medical History?: Yes - Past Social History Smoking Status: Never Smoked - CARDIAC Hx Hypercholesterolemia: Yes Hx Hypertension: Yes - PULMONARY Hx Respiratory Disorders: No - NEUROLOGICAL HX Cerebrovascular Accident: Yes - HEENT Hx HEENT Problems: No - RENAL Hx Chronic Kidney Disease: Yes - ENDOCRINE/METABOLIC Hx Diabetes Mellitus Type 2: Yes Hx Hypothyroidism: Yes - HEMATOLOGICAL/ONCOLOGICAL Hx Blood Disorders: No - INTEGUMENTARY Hx Dermatological Problems: No - MUSCULOSKELETAL/RHEUMATOLOGICAL Hx Falls: Yes - GASTROINTESTINAL Hx Gastrointestinal Disorders: No - GENITOURINARY/GYNECOLOGICAL Hx Genitourinary Disorders: No - PSYCHIATRIC Hx Substance Use: No - SURGICAL HISTORY Hx Surgeries: No Other/Comment: HIP REPLACEMENT - DONT KNOW WHICH HIP - ANESTHESIA Hx Anesthesia: Yes Hx Anesthesia Reactions: No Meds Allergies/Adverse Reactions: Allergies Allergy/AdvReac Type Severity Reaction Status Date / Time No Known Allergies Allergy Verified 11/18/18 12:35 - Medications Medications: Current Medications Acetaminophen (Tylenol 325mg Tab) 650 mg PO Q6 PRN PRN Reason: fever 100.0 Dextrose (Dextrose 50% Inj) 0 ml IV STAT PRN; Protocol PRN Reason: Hypoglycemia Protocol Dextrose (Glutose 15) 0 gm PO ONCE PRN; Protocol PRN Reason: Hypoglycemia Protocol Glucagon (Glucagen Diagnostic Kit) 0 mg IM STAT PRN; Protocol PRN Reason: Hypoglycemia Protocol Heparin Sodium (Porcine) (Heparin) 5,000 units SC Q12 [facility] Metronidazole (Flagyl) 500 mg in 100 mls @ 100 mls/hr IVPB Q8H [facility]; Protocol Last Admin: 12/24/18 08:13 Dose: 100 mls/hr Cefepime HCl 1 gm/ Dextrose 50 mls @ 100 mls/hr IVPB Q24H [facility]; Protocol Last Admin: 12/24/18 10:20 Dose: 100 mls/hr Dextrose (Dextrose 5% In Water 1000 Ml) 1,000 mls @ 0 mls/hr IV .Q0M PRN; Prot ocol PRN Reason: Hypoglycemia Protocol Sodium Bicarbonate 150 meq/ (Dextrose) 1,150 mls @ 75 mls/hr IV .[id number] [facility] Influenza Virus Vaccine (Flucelvax Quad [id number] Syr) 60 mcg IM .ONCE ONE Stop: 12/25/18 10:01 Insulin Human Regular (Novolin R) 0 unit SC ACHS [facility]; Protocol Last Admin: 12/24/18 07:30 Dose: Not Given Metoclopramide HCl (Reglan) 5 mg IVP Q6H [facility] Stop: 12/26/18 08:16 Last Admin: 12/24/18 09:12 Dose: 5 mg Pantoprazole Sodium (Protonix Inj) 40 mg IVP DAILY [facility] Last Admin: 12/24/18 09:12 Dose: 40 mg Rosuvastatin Calcium (Crestor) 10 mg PO HS [facility] Vancomycin HCl (Vancocin 250mg Capsule) 250 mg PO QID [facility] Venlafaxine HCl (Effexor Xr) 150 mg PO DAILY [facility] Physical Exam - Head Exam Head Exam: ATRAUMATIC, NORMAL INSPECTION, NORMOCEPHALIC - Eye Exam Eye Exam: EOMI - ENT Exam ENT Exam: Mucous Membranes Moist - Respiratory Exam Respiratory Exam: Clear to Auscultation Bilateral, NORMAL BREATHING PATTERN. absent: Decreased Breath Sounds, Rales, Respiratory Distress, Stridor - Cardiovascular Exam Cardiovascular Exam: Tachycardia, Irregular Rhythm, +S1, +S2 - GI/Abdominal Exam GI & Abdominal Exam: Normal Bowel Sounds, Soft, Tenderness - Extremities Exam Extremities exam: Positive for: pedal edema - Neurological Exam Neurological exam: Alert, Oriented x3 Results - Vital Signs Recent Vital Signs: Last Vital Signs Temp 98.1 F 12/24/18 09:00 Pulse 110 H 12/24/18 09:00 Resp 18 12/24/18 09:00 BP 125/65 12/24/18 09:00 Pulse Ox 95 12/24/18 09:00 - Labs Result Diagrams: 12/24/18 09:49 12/24/18 09:49 Labs: Laboratory Results - last 24 hr 12/23/18 12/23/18 12/23/18 10:56 16:54 21:35 WBC RBC Hgb Hct MCV MCH MCHC RDW Plt Count MPV Neut % (Auto) Lymph % (Auto) [place] % (Auto) Eos % (Auto) Baso % (Auto) Neut # (Auto) Lymph # (Auto) [place] # (Auto) Eos # (Auto) Baso # (Auto) Neutrophils % (Manual) Band Neutrophils % Lymphocytes % (Manual) Monocytes % (Manual) Platelet Estimate Plt Clumps, EDTA Poikilocytosis (manual Anisocytosis (manual) Puncture Site pCO2 pO2 HCO3 ABG pH ABG Total CO2 ABG O2 Saturation ABG Base Excess ABG Hemoglobin ABG Carboxyhemoglobin POC ABG HHb (Measured) ABG Methemoglobin Jaden Test ABG Potassium A-a O2 Difference Respiratory Index Hgb O2 Saturation Glucose Lactate Liter Flow FiO2 Crit Value Called To Crit Value Called By Crit Value Read Back Blood Gas Notified Time Sodium Potassium Chloride Carbon Dioxide Anion Gap BUN Creatinine Est GFR ( Amer) Est GFR (Non-Af Amer) POC Glucose (mg/dL) 175 H 204 H 208 H Random Glucose Lactic Acid Calcium Phosphorus Magnesium Total Bilirubin AST ALT Alkaline Phosphatase Troponin I NT-Pro-B Natriuret Pep Total Protein Albumin Globulin Albumin/Globulin Ratio Arterial Blood Potassium 12/23/18 12/24/18 12/24/18 23:25 07:30 08:26 WBC 27.7 H RBC 3.91 Hgb 10.0 L Hct 32.2 L MCV 82.4 MCH 25.6 L MCHC 31.1 L RDW 18.1 H Plt Count 446 H MPV 9.1 Neut % (Auto) 90.4 H Lymph % (Auto) 5.[address] [place] % (Auto) 4.2 Eos % (Auto) 0.1 Baso % (Auto) 0.2 Neut # (Auto) 25.0 H Lymph # (Auto) 1.4 [place] # (Auto) 1.2 H Eos # (Auto) 0.0 Baso # (Auto) 0.0 Neutrophils % (Manual) 86 H Band Neutrophils % 5 H Lymphocytes % (Manual) 5 L Monocytes % (Manual) 4 Platelet Estimate Slightly increased H Plt Clumps, EDTA Present Poikilocytosis (manual Slight Anisocytosis (manual) Slight Puncture Site Rb pCO2 18 L* pO2 67 L HCO3 15.3 L ABG pH 7.38 ABG Total CO2 11.2 L ABG O2 Saturation 95.6 ABG Base Excess -12.2 L ABG Hemoglobin 12.0 ABG Carboxyhemoglobin 2.0 H POC ABG HHb (Measured) 4.2 ABG Methemoglobin 1.6 Jaden Test Na ABG Potassium A-a O2 Difference 110.0 Respiratory Index 1.6 Hgb O2 Saturation 92.2 L Glucose Lactate Liter Flow 2.0 FiO2 28.0 Crit Value Called To Dr ruiz Crit Value Called By Mello bell/rt Crit Value Read Back Y Blood Gas Notified Time 2335 Sodium Potassium Chloride Carbon Dioxide Anion Gap BUN Creatinine Est GFR ( Amer) Est GFR (Non-Af Amer) POC Glucose (mg/dL) 235 H Random Glucose Lactic Acid Calcium Phosphorus Magnesium Total Bilirubin AST ALT Alkaline Phosphatase Troponin I NT-Pro-B Natriuret Pep Total Protein Albumin Globulin Albumin/Globulin Ratio Arterial Blood Potassium 12/24/18 12/24/18 12/24/18 08:26 08:26 09:33 WBC RBC Hgb Hct MCV MCH MCHC RDW Plt Count MPV Neut % (Auto) Lymph % (Auto) [place] % (Auto) Eos % (Auto) Baso % (Auto) Neut # (Auto) Lymph # (Auto) [place] # (Auto) Eos # (Auto) Baso # (Auto) Neutrophils % (Manual) Band Neutrophils % Lymphocytes % (Manual) Monocytes % (Manual) Platelet Estimate Plt Clumps, EDTA Poikilocytosis (manual Anisocytosis (manual) Puncture Site pCO2 pO2 HCO3 ABG pH ABG Total CO2 ABG O2 Saturation ABG Base Excess ABG Hemoglobin ABG Carboxyhemoglobin POC ABG HHb (Measured) ABG Methemoglobin Jaden Test ABG Potassium A-a O2 Difference Respiratory Index Hgb O2 Saturation Glucose Lactate Liter Flow FiO2 Crit Value Called To Crit Value Called By Crit Value Read Back Blood Gas Notified Time Sodium 130 L Potassium 4.4 Chloride 105 Carbon Dioxide 14 L Anion Gap 17 BUN 44 H Creatinine 3.3 H Est GFR ( Amer) 16 Est GFR (Non-Af Amer) 14 POC Glucose (mg/dL) 221 H Random Glucose 242 H D Lactic Acid 2.5 H Calcium 6.9 L Phosphorus Magnesium Total Bilirubin 1.0 AST 23 ALT 6 L Alkaline Phosphatase 88 Troponin I NT-Pro-B Natriuret Pep Total Protein 5.8 L Albumin 2.6 L Globulin 3.2 Albumin/Globulin Ratio 0.8 L Arterial Blood Potassium 12/24/18 12/24/18 12/24/18 09:49 09:49 09:50 WBC 33.3 H RBC 3.96 Hgb 10.2 L Hct 32.7 L MCV 82.4 MCH 25.8 L MCHC 31.3 L RDW 17.9 H Plt Count 497 H MPV 8.8 Neut % (Auto) 91.3 H Lymph % (Auto) 5.[address] [place] % (Auto) 3.3 Eos % (Auto) 0.2 Baso % (Auto) 0.2 Neut # (Auto) 30.4 H Lymph # (Auto) 1.7 [place] # (Auto) 1.1 H Eos # (Auto) 0.1 Baso # (Auto) 0.1 Neutrophils % (Manual) Band Neutrophils % Lymphocytes % (Manual) Monocytes % (Manual) Platelet Estimate Plt Clumps, EDTA Poikilocytosis (manual Anisocytosis (manual) Puncture Site Left radial pCO2 17 L* pO2 120 H HCO3 15.0 L ABG pH 7.37 ABG Total CO2 10.3 L ABG O2 Saturation 98.8 H ABG Base Excess -12.8 L ABG Hemoglobin ABG Carboxyhemoglobin POC ABG HHb (Measured) ABG Methemoglobin Jaden Test Na ABG Potassium 4.1 A-a O2 Difference 108.0 Respiratory Index 0.9 Hgb O2 Saturation Glucose 220 H Lactate 2.9 H Liter Flow 3.0 FiO2 35.0 Crit Value Called To Dr autumn garvey Crit Value Called By Willie miles Crit Value Read Back Y Blood Gas Notified Time 956 Sodium 134 133.0 Potassium 4.6 Chloride 108 H 111.0 H Carbon Dioxide 12 L Anion Gap 18 BUN 43 H Creatinine 3.4 H Est GFR ( Amer) 16 Est GFR (Non-Af Amer) 13 POC Glucose (mg/dL) Random Glucose 217 H Lactic Acid Calcium 7.0 L Phosphorus 4.4 Magnesium 1.6 Total Bilirubin 0.9 AST 47 H D ALT 8 L D Alkaline Phosphatase 95 Troponin I < 0.0120 NT-Pro-B Natriuret Pep 8150 H Total Protein 6.2 L Albumin 2.7 L Globulin 3.5 Albumin/Globulin Ratio 0.8 L Arterial Blood Potassium 4.1 Assessment & Plan - Assessment and Plan (Free Text) Assessment: Sepsis:CT reveals colitits: likely C. diff, start oral vanco and rectal vanco, ID follow up, serial lactic, avoid all other abx not indicated, valenzuela culture and de-escalate -A-fib/chronic hert failure: avoid fluid overloaded states, rate contol as BP tolerates, -NPO -PUD ppx: d/c protonix, add pepcid -DVT ppx heparin -d/c imodium -r/o ischemic causes. -Admit to ICU Multiple diagnostic tests pending. - Date & Time Date: 12/24/18 Time: 10:39
[2018-12-24 10:40] LABS: SQUAMOUS EPITHIAL 1 /hpf (0-5); URINE AMORPHOUS SEDIMENT RARE /ul (<OCC); URINE BILIRUBIN NEGATIVE (NEGATIVE); URINE BLOOD NEGATIVE (NEGATIVE); URINE CLARITY Hazy (Clear); URINE COLOR Amber (YELLOW); URINE GLUCOSE (UA) NORMAL (Normal); URINE LEUKOCYTE ESTERASE NEG Leu/uL (Negative); URINE PROTEIN NEGATIVE (NEGATIVE)
--- NOTE | 2018-12-24 10:58 | CP.PCM.CON ---
History of Present Illness - History of Present Illness History of Present Illness: Asked to see patient for abdom pain. I was first notified about this patient and consult at 8:15 am today. Pt came to ER 12/22 with abdom pain. Also has had diarrhea and fever. Today- still with abdom pain, diarrhea, elev WBC. CT a bdomen on admission is read as chr colitis. Repeat CT abd is ordered today. PMH: Afib, CVA, dig tox 3 months ago. Pt was interviewed with translation service, and seen with RN. Review of Systems - Constitutional Constitutional: Fatigue, Fever, Weakness. absent: Weight Loss - EENT Eyes: absent: Pain, Photophobia Nose/Mouth/Throat: absent: Mouth Lesions - Cardiovascular Cardiovascular: absent: Chest Pain, Palpitations, Pedal Edema - Respiratory Respiratory: absent: Cough, Hemoptysis, Wheezing - Gastrointestinal Gastrointestinal: Abdominal Pain, Bloating, Diarrhea, Nausea. absent: Constipation, Dysphagia, Hematemesis, Hematochezia, Melena, Vomiting - Genitourinary Genitourinary: absent: Flank Pain, Hematuria - Musculoskeletal Musculoskeletal: absent: Muscle Cramps, Muscle Weakness - Integumentary Integumentary: absent: Lesions, Pruritus, Jaundice - Neurological Neurological: absent: Convulsions, Syncope - Psychiatric Psychiatric: absent: Hallucinations Past Patient History - Infectious Disease Hx of Infectious Diseases: None - Past Medical History & Family History Past Medical History?: Yes - Past Social History Smoking Status: Never Smoked - CARDIAC Hx Hypercholesterolemia: Yes Hx Hypertension: Yes - PULMONARY Hx Respiratory Disorders: No - NEUROLOGICAL HX Cerebrovascular Accident: Yes - HEENT Hx HEENT Problems: No - RENAL Hx Chronic Kidney Disease: Yes - ENDOCRINE/METABOLIC Hx Diabetes Mellitus Type 2: Yes Hx Hypothyroidism: Yes - HEMATOLOGICAL/ONCOLOGICAL Hx Blood Disorders: No - INTEGUMENTARY Hx Dermatological Problems: No - MUSCULOSKELETAL/RHEUMATOLOGICAL Hx Falls: Yes - GASTROINTESTINAL Hx Gastrointestinal Disorders: No - GENITOURINARY/GYNECOLOGICAL Hx Genitourinary Disorders: No - PSYCHIATRIC Hx Substance Use: No - SURGICAL HISTORY Hx Surgeries: No Other/Comment: HIP REPLACEMENT - DONT KNOW WHICH HIP - ANESTHESIA Hx Anesthesia: Yes Hx Anesthesia Reactions: No Meds Allergies/Adverse Reactions: Allergies Allergy/AdvReac Type Severity Reaction Status Date / Time No Known Allergies Allergy Verified 11/18/18 12:35 - Medications Medications: Current Medications Acetaminophen (Tylenol 325mg Tab) 650 mg PO Q6 PRN PRN Reason: fever 100.0 Dextrose (Dextrose 50% Inj) 0 ml IV STAT PRN; Protocol PRN Reason: Hypoglycemia Protocol Dextrose (Glutose 15) 0 gm PO ONCE PRN; Protocol PRN Reason: Hypoglycemia Protocol Glucagon (Glucagen Diagnostic Kit) 0 mg IM STAT PRN; Protocol PRN Reason: Hypoglycemia Protocol Heparin Sodium (Porcine) (Heparin) 5,000 units SC Q12 [facility] Metronidazole (Flagyl) 500 mg in 100 mls @ 100 mls/hr IVPB Q8H [facility]; Protocol Last Admin: 12/24/18 08:13 Dose: 100 mls/hr Cefepime HCl 1 gm/ Dextrose 50 mls @ 100 mls/hr IVPB Q24H [facility]; Protocol Last Admin: 12/24/18 10:20 Dose: 100 mls/hr Dextrose (Dextrose 5% In Water 1000 Ml) 1,000 mls @ 0 mls/hr IV .Q0M [facility]; Protocol PRN Reason: Hypoglycemia Protocol Sodium Bicarbonate 150 meq/ (Dextrose) 1,000 mls @ 75 mls/hr IV .[id number] [facility] Influenza Virus Vaccine (Flucelvax Quad [id number] Syr) 60 mcg IM .ONCE ONE Stop: 12/25/18 10:01 Insulin Human Regular (Novolin R) 0 unit SC ACHS [facility]; Protocol Last Admin: 12/24/18 07:30 Dose: Not Given Metoclopramide HCl (Reglan) 5 mg IVP Q6H [facility] Stop: 12/26/18 08:16 Last Admin: 12/24/18 09:12 Dose: 5 mg Pantoprazole Sodium (Protonix Inj) 40 mg IVP DAILY [facility] Last Admin: 12/24/18 09:12 Dose: 40 mg Rosuvastatin Calcium (Crestor) 10 mg PO HS [facility] Vancomycin HCl (Vancocin 250mg Capsule) 250 mg PO QID [facility] Venlafaxine HCl (Effexor Xr) 150 mg PO DAILY [facility] Physical Exam - Constitutional Additional comments: weak appearing - Eye Exam Eye Exam: absent: Scleral icterus - Neck Exam Neck exam: Negative for: Tenderness - Respiratory Exam Respiratory Exam: Clear to Auscultation Bilateral - Cardiovascular Exam Cardiovascular Exam: Irregular Rhythm - GI/Abdominal Exam GI & Abdominal Exam: Distended, Guarding, Hypoactive Bowel Sounds, Tenderness. absent: Rebound - Extremities Exam Extremities exam: Negative for: calf tenderness - Neurological Exam Neurological exam: Alert, Oriented x3 - Psychiatric Exam Psychiatric exam: Anxious Results - Vital Signs Recent Vital Signs: Last Vital Signs Temp 98.1 F 12/24/18 09:00 Pulse 110 H 12/24/18 09:00 Resp 18 12/24/18 09:00 BP 125/65 12/24/18 09:00 Pulse Ox 95 12/24/18 09:00 - Labs Result Diagrams: 12/24/18 09:49 12/24/18 09:49 Labs: Laboratory Results - last 24 hr 12/23/18 12/23/18 12/23/18 10:56 16:54 21:35 WBC RBC Hgb Hct MCV MCH MCHC RDW Plt Count MPV Neut % (Auto) Lymph % (Auto) [place] % (Auto) Eos % (Auto) Baso % (Auto) Neut # (Auto) Lymph # (Auto) [place] # (Auto) Eos # (Auto) Baso # (Auto) Neutrophils % (Manual) Band Neutrophils % Lymphocytes % (Manual) Monocytes % (Manual) Platelet Estimate Plt Clumps, EDTA Poikilocytosis (manual Anisocytosis (manual) Puncture Site pCO2 pO2 HCO3 ABG pH ABG Total CO2 ABG O2 Saturation ABG Base Excess ABG Hemoglobin ABG Carboxyhemoglobin POC ABG HHb (Measured) ABG Methemoglobin Jaden Test ABG Potassium A-a O2 Difference Respiratory Index Hgb O2 Saturation Glucose Lactate Liter Flow FiO2 Crit Value Called To Crit Value Called By Crit Value Read Back Blood Gas Notified Time Sodium Potassium Chloride Carbon Dioxide Anion Gap BUN Creatinine Est GFR ( Amer) Est GFR (Non-Af Amer) POC Glucose (mg/dL) 175 H 204 H 208 H Random Glucose Lactic Acid Calcium Phosphorus Magnesium Total Bilirubin AST ALT Alkaline Phosphatase Troponin I NT-Pro-B Natriuret Pep Total Protein Albumin Globulin Albumin/Globulin Ratio Arterial Blood Potassium Urine Color Urine Clarity Urine pH Ur Specific [place] Urine Protein Urine Glucose (UA) Urine Ketones Urine Blood Urine Nitrate Urine Bilirubin Urine Urobilinogen Ur Leukocyte Esterase Urine WBC (Auto) Urine RBC (Auto) Ur Squamous Epith Cells Amorphous Sediment 12/23/18 12/24/18 12/24/18 23:25 07:30 08:26 WBC 27.7 H RBC 3.91 Hgb 10.0 L Hct 32.2 L MCV 82.4 MCH 25.6 L MCHC 31.1 L RDW 18.1 H Plt Count 446 H MPV 9.1 Neut % (Auto) 90.4 H Lymph % (Auto) 5.1 L [place] % (Auto) 4.2 Eos % (Auto) 0.1 Baso % (Auto) 0.2 Neut # (Auto) 25.0 H Lymph # (Auto) 1.4 [place] # (Auto) 1.2 H Eos # (Auto) 0.0 Baso # (Auto) 0.0 Neutrophils % (Manual) 86 H Band Neutrophils % 5 H Lymphocytes % (Manual) 5 L Monocytes % (Manual) 4 Platelet Estimate Slightly increased H Plt Clumps, EDTA Present Poikilocytosis (manual Slight Anisocytosis (manual) Slight Puncture Site Rb pCO2 18 L* pO2 67 L HCO3 15.3 L ABG pH 7.38 ABG Total CO2 11.2 L ABG O2 Saturation 95.6 ABG Base Excess -12.2 L ABG Hemoglobin 12.0 ABG Carboxyhemoglobin 2.0 H POC ABG HHb (Measured) 4.2 ABG Methemoglobin 1.6 Jaden Test Na ABG Potassium A-a O2 Difference 110.0 Respiratory Index 1.6 Hgb O2 Saturation 92.2 L Glucose Lactate Liter Flow 2.0 FiO2 28.0 Crit Value Called To Dr ruiz Crit Value Called By Mello bell/rt Crit Value Read Back Y Blood Gas Notified Time 2332 Sodium Potassium Chloride Carbon Dioxide Anion Gap BUN Creatinine Est GFR ( Amer) Est GFR (Non-Af Amer) POC Glucose (mg/dL) 235 H Random Glucose Lactic Acid Calcium Phosphorus Magnesium Total Bilirubin AST ALT Alkaline Phosphatase Troponin I NT-Pro-B Natriuret Pep Total Protein Albumin Globulin Albumin/Globulin Ratio Arterial Blood Potassium Urine Color Urine Clarity Urine pH Ur Specific [place] Urine Protein Urine Glucose (UA) Urine Ketones Urine Blood Urine Nitrate Urine Bilirubin Urine Urobilinogen Ur Leukocyte Esterase Urine WBC (Auto) Urine RBC (Auto) Ur Squamous Epith Cells Amorphous Sediment 12/24/18 12/24/18 12/24/18 08:26 08:26 09:33 WBC RBC Hgb Hct MCV MCH MCHC RDW Plt Count MPV Neut % (Auto) Lymph % (Auto) [place] % (Auto) Eos % (Auto) Baso % (Auto) Neut # (Auto) Lymph # (Auto) [place] # (Auto) Eos # (Auto) Baso # (Auto) Neutrophils % (Manual) Band Neutrophils % Lymphocytes % (Manual) Monocytes % (Manual) Platelet Estimate Plt Clumps, EDTA Poikilocytosis (manual Anisocytosis (manual) Puncture Site pCO2 pO2 HCO3 ABG pH ABG Total CO2 ABG O2 Saturation ABG Base Excess ABG Hemoglobin ABG Carboxyhemoglobin POC ABG HHb (Measured) ABG Methemoglobin Jaden Test ABG Potassium A-a O2 Difference Respiratory Index Hgb O2 Saturation Glucose Lactate Liter Flow FiO2 Crit Value Called To Crit Value Called By Crit Value Read Back Blood Gas Notified Time Sodium 130 L Potassium 4.4 Chloride 105 Carbon Dioxide 14 L Anion Gap 17 BUN 44 H Creatinine 3.3 H Est GFR ( Amer) 16 Est GFR (Non-Af Amer) 14 POC Glucose (mg/dL) 221 H Random Glucose 242 H D Lactic Acid 2.5 H Calcium 6.9 L Phosphorus Magnesium Total Bilirubin 1.0 AST 23 ALT 6 L Alkaline Phosphatase 88 Troponin I NT-Pro-B Natriuret Pep Total Protein 5.8 L Albumin 2.6 L Globulin 3.2 Albumin/Globulin Ratio 0.8 L Arterial Blood Potassium Urine Color Urine Clarity Urine pH Ur Specific [place] Urine Protein Urine Glucose (UA) Urine Ketones Urine Blood Urine Nitrate Urine Bilirubin Urine Urobilinogen Ur Leukocyte Esterase Urine WBC (Auto) Urine RBC (Auto) Ur Squamous Epith Cells Amorphous Sediment 12/24/18 12/24/18 12/24/18 09:49 09:49 09:50 WBC 33.3 H RBC 3.96 Hgb 10.2 L Hct 32.7 L MCV 82.4 MCH 25.8 L MCHC 31.3 L RDW 17.9 H Plt Count 497 H MPV 8.8 Neut % (Auto) 91.3 H Lymph % (Auto) 5.0 L [place] % (Auto) 3.3 Eos % (Auto) 0.2 Baso % (Auto) 0.2 Neut # (Auto) 30.4 H Lymph # (Auto) 1.7 [place] # (Auto) 1.1 H Eos # (Auto) 0.1 Baso # (Auto) 0.1 Neutrophils % (Manual) Band Neutrophils % Lymphocytes % (Manual) Monocytes % (Manual) Platelet Estimate Plt Clumps, EDTA Poikilocytosis (manual Anisocytosis (manual) Puncture Site Left radial pCO2 17 L* pO2 120 H HCO3 15.0 L ABG pH 7.37 ABG Total CO2 10.3 L ABG O2 Saturation 98.8 H ABG Base Excess -12.8 L ABG Hemoglobin ABG Carboxyhemoglobin POC ABG HHb (Measured) ABG Methemoglobin Jaden Test Na ABG Potassium 4.1 A-a O2 Difference 108.0 Respiratory Index 0.9 Hgb O2 Saturation Glucose 220 H Lactate 2.9 H Liter Flow 3.0 FiO2 35.0 Crit Value Called To Dr autumn garvey Crit Value Called By Willie miles Crit Value Read Back Y Blood Gas Notified Time 956 Sodium 134 133.0 Potassium 4.6 Chloride 108 H 111.0 H Carbon Dioxide 12 L Anion Gap 18 BUN 43 H Creatinine 3.4 H Est GFR ( Amer) 16 Est GFR (Non-Af Amer) 13 POC Glucose (mg/dL) Random Glucose 217 H Lactic Acid Calcium 7.0 L Phosphorus 4.4 Magnesium 1.6 Total Bilirubin 0.9 AST 47 H D ALT 8 L D Alkaline Phosphatase 95 Troponin I < 0.0120 NT-Pro-B Natriuret Pep 8150 H Total Protein 6.2 L Albumin 2.7 L Globulin 3.5 Albumin/Globulin Ratio 0.8 L Arterial Blood Potassium 4.1 Urine Color Urine Clarity Urine pH Ur Specific [place] Urine Protein Urine Glucose (UA) Urine Ketones Urine Blood Urine Nitrate Urine Bilirubin Urine Urobilinogen Ur Leukocyte Esterase Urine WBC (Auto) Urine RBC (Auto) Ur Squamous Epith Cells Amorphous Sediment 12/24/18 10:29 WBC RBC Hgb Hct MCV MCH MCHC RDW Plt Count MPV Neut % (Auto) Lymph % (Auto) [place] % (Auto) Eos % (Auto) Baso % (Auto) Neut # (Auto) Lymph # (Auto) [place] # (Auto) Eos # (Auto) Baso # (Auto) Neutrophils % (Manual) Band Neutrophils % Lymphocytes % (Manual) Monocytes % (Manual) Platelet Estimate Plt Clumps, EDTA Poikilocytosis (manual Anisocytosis (manual) Puncture Site pCO2 pO2 HCO3 ABG pH ABG Total CO2 ABG O2 Saturation ABG Base Excess ABG Hemoglobin ABG Carboxyhemoglobin POC ABG HHb (Measured) ABG Methemoglobin Jaden Test ABG Potassium A-a O2 Difference Respiratory Index Hgb O2 Saturation Glucose Lactate Liter Flow FiO2 Crit Value Called To Crit Value Called By Crit Value Read Back Blood Gas Notified Time Sodium Potassium Chloride Carbon Dioxide Anion Gap BUN Creatinine Est GFR ( Amer) Est GFR (Non-Af Amer) POC Glucose (mg/dL) Random Glucose Lactic Acid Calcium Phosphorus Magnesium Total Bilirubin AST ALT Alkaline Phosphatase Troponin I NT-Pro-B Natriuret Pep Total Protein Albumin Globulin Albumin/Globulin Ratio Arterial Blood Potassium Urine Color [place] Urine Clarity Hazy Urine pH 5.0 Ur Specific [place] 1.049 H Urine Protein Negative Urine Glucose (UA) Normal Urine Ketones Negative Urine Blood Negative Urine Nitrate Negative Urine Bilirubin Negative Urine Urobilinogen 2.0 H Ur Leukocyte Esterase Neg Urine WBC (Auto) 1 Urine RBC (Auto) 4 H Ur Squamous Epith Cells 1 Amorphous Sediment Rare H Assessment & Plan (1) Depression Status: Acute (2) Anemia Assessment and Plan: chronic dis likley Status: Acute (3) Abdominal pain Assessment and Plan: consider colitis as source.. Status: Acute (4) Colitis Assessment and Plan: Consider c diff, but no known recent antibiotics. CONSIDER INTEST ISCHEMIA OR ISCHEMIC COLITIS. Pt has h/o a fibrillation. No h/o IBD. With elev WBC, pt is being covered with IV Abx, IV flagyl, and po vanco. Dr Nolen is on the case. With abd pain, likely colitis, and elev WBX, surgery consult should be called. Keep NPO except meds. The case was discussed with Dr Martin and the Medical team. Status: Acute (5) Sepsis Status: Acute (6) Renal insufficiency Status: Acute (7) CVA (cerebral vascular accident) Status: Ruled-out
[2018-12-24] MEDS: Sodium Bicarbonate 8.4% 150 MEQ in Dextrose 5% In Water 850 ML IV SCH (11:05)
[2018-12-24] MEDS: Vancomycin Hydrochloride 250 mg Capsule (Oral) PO SCH ×4 (11:20→22:15)
[2018-12-24] MEDS: Venlafaxine 150 mg ER Cap PO SCH (11:28)
--- NOTE | 2018-12-24 11:28 | CT ---
Date of service: 12/24/2018 PROCEDURE: CT Abdomen and Pelvis without intravenous contrast HISTORY: Rigid abdomen COMPARISON: Comparison made with prior CT scan of the abdomen pelvis 12/22/2018 at 2130 hr. TECHNIQUE: Contiguous helical/transaxial sections of the abdomen pelvis performed without oral or intravenous contrast material. Additional 2D sagittal and coronal reformats generated. Radiation dose: Total exam DLP = 805.45 mGy-cm. This CT exam was performed using one or more of the following dose reduction techniques: Automated exposure control, adjustment of the mA and/or kV according to patient size, and/or use of iterative reconstruction technique. FINDINGS: LOWER THORAX: Mild bibasilar atelectasis and suspected trace effusions right greater than left.. No evidence of basilar pneumothorax Small to medium size hiatal hernia with fluid in the distal esophagus likely due to significant reflux. Clinical correlation recommended. LIVER: Liver exhibits normal size. No evidence of hepatic mass or collection seen on this limited noncontrast exam. GALLBLADDER AND BILE DUCTS: Cholelithiasis. PANCREAS: Pancreas is atrophic and fatty replaced. No obvious pancreatic mass collection or calcification. No significant pancreatic ductal dilatation SPLEEN: Spleen exhibits normal size and attenuation pattern without mass collection or calcification. ADRENALS: Left adrenal nodule unchanged. Consider follow-up noncontrast MRI of the adrenal glands for further evaluation KIDNEYS AND URETERS: The renal parenchyma symmetric and presumed prolonged nephrograms in this patient who did not have intravenous contrast this procedure. Enhancement is likely due to prior injection 12/22/2018. Rule out renal insufficiency.. There are bilateral low-attenuation cortical lesions likely representing cortical cysts however some of these foci exhibit increased attenuation possibly hyperdense cyst. Renal ultrasound could confirm VASCULATURE: Unremarkable. No aortic aneurysm. Mild aortic atherosclerotic calcification or mural plaque present. BOWEL: Evaluation of the bowel is somewhat limited due to the lack of oral contrast material. Redemonstrated is significant in diffuse colonic wall thickening consistent with a nonspecific colitis; rule out infectious versus inflammatory etiologies. Possibility of pseudomembranous not excluded. APPENDIX: Appendix is not seen with certainty on this exam. PERITONEUM: Increased ascites. No free intraperitoneal air identified. LYMPH NODES: Multiple upper abdominal and retroperitoneal lymph nodes. BLADDER: The urinary bladder is distended with excreted intravenous contrast material. REPRODUCTIVE: Uterus is partially obscured by streak and beam hardening artifact arising from dense contrast material in the urinary bladder as well as left total hip replacement and right intramedullary fixation screw and stabilization right femur BONES: ORIF right hip with left total hip replacement. Multilevel degenerative spondylosis of the lower thoracic and lumbar spine. OTHER FINDINGS: Mild anasarca IMPRESSION: Diffuse significant and diffuse colonic wall thickening consistent with colitis. Rule out infectious versus inflammatory or possibly pseudomembranous colitis. Increased ascites. No free intraperitoneal air identified. Cholelithiasis. Left adrenal nodule for which follow-up MRI could be performed further evaluation if indicated. Prolonged nephrograms from contrast injected on prior CT scan abdomen pelvis 12/22/2018. Findings may represent renal insufficiency however clinical correlation recommended. Bilateral renal cysts. Multiple upper abdominal and retroperitoneal lymph nodes Mild anasarca Small to medium size hiatal hernia with large amount of fluid in the distal esophagus consistent with reflux. Multiple upper abdominal Bibasilar atelectasis with suspected tiny effusions.
--- NOTE | 2018-12-24 13:21 | CP.PCM.CON ---
History of Present Illness - History of Present Illness History of Present Illness: Nephrology Consultation Note: Assessment: critical Acute Kidney Injury (N17.9) likely due to ATN due to sepsis, IV contrast colitis, hagma with respi compensation, hyponatremia Diabetic chronic Kidney Disease (E11.22) Hypertensive Chronic Kidney Disease (I12.9) Chronic Kidney Disease (N18.3) Stage 3 with ? mg proteinuria (R80.9) l Anemia (D64.9) hx of dig toxicity, A fib, CVA, hypothyroidism left adrenal nodule Plan No acute need for renal replacement therapy at this time. Hypertension control with meds as ordered. Maintain hemodynamics stable. Avoid hypotension. Patient not on ACEI/ARB due to recent LOUIE Monitor Input/Output, daily weights and renal function with basic metabolic panel agree with bicarb drip left adrenal nodule work up as outpt Dose meds/antibiotics for reduced GFR. Avoid fleets enema/magnesium based l axatives. Avoid nephrotoxins/NSAIDs/ iodinated contrast (unless needed emergently) Glycemic control Further work up/management as per primary team Thanks for allowing me to participate in care of your patient. Will follow patient with you. Please call if any Qs. had d/w team Dr Raghu Solis Office: [phone] Chief Complaint; pain abdomen Reason for consult: Acute Kidney Injury HPI: Pt is a 73 F with hx of diabetes Mellitus ( years), hypertension (years) CKD 3 with baseline cr 1.2-1.4, hx of dig toxicity, A fib, CVA, hypothyroidism presented with complaints of pain abdomen and being managed for sepsis, colitis, transferred to ICU Denies OTC/herbal meds or NSAIDs Noted recent iodinated contrast exposure. Noted obvious episodes of low BP (99/61). pt not aware about kidney disease in past ROS: overall hx limited from pt Cardiovascular: No chest pain. Pulmonary: No shortness of breath Gastrointestinal: c/o abdominal pain No nausea. No vomiting. Genitourinary: No pain while urinating. Denies blood in urine. All other negative except as mentioned in HPI Physical Examination: General Appearance: uncomfortable, in no acute respiratory distress, co- operative . ill appearing Vitals reviewed and noted as below Head; Atraumatic, normocephalic ENT: no ulcers no thrush. Tongue is midline. Oropharynx: no rash or ulcers. EYES: Pupils are equal, round and reactive to light accommodation. Eye muscles and extraocular movement intact. Sclera is anicteric. Neck; supple no lymphadenopathy, no thyromegaly or bruit Lungs: Normal respiratory rate/effort. Breath sounds bilateral equal and clear Heart: Increased rate. s1s2 normal. No rub or gallop. Extremities: no edema. No varicose veins Neurological: Patient is alert, awake No focal deficit. Strength bilateral appropriate and equal. confused Skin: Warm and dry. Normal turgor. No rash. Palpitation: Normal elasticity for age Abdomen: Abdomen is soft. Bowel sounds +. There is distension and abdominal tenderness, no guarding/rigidity no organomegaly Psych: lack insight and normal affect/mood MSK: no joint tenderness or swelling. Digits and nails normal, no deformity : kidney or bladder not palpable Labs/imaging reviewed. Past medical history, past surgical history, family history, social history, allergy reviewed and noted as below Family hx: no hx of CKD. Rest non-contributory Past Patient History - Infectious Disease Hx of Infectious Diseases: None - Past Medical History & Family History Past Medical History?: Yes - Past Social History Smoking Status: Never Smoked - CARDIAC Hx Hypercholesterolemia: Yes Hx Hypertension: Yes - PULMONARY Hx Respiratory Disorders: No - NEUROLOGICAL HX Cerebrovascular Accident: Yes - HEENT Hx HEENT Problems: No - RENAL Hx Chronic Kidney Disease: Yes - ENDOCRINE/METABOLIC Hx Diabetes Mellitus Type 2: Yes Hx Hypothyroidism: Yes - HEMATOLOGICAL/ONCOLOGICAL Hx Blood Disorders: No - INTEGUMENTARY Hx Dermatological Problems: No - MUSCULOSKELETAL/RHEUMATOLOGICAL Hx Falls: Yes - GASTROINTESTINAL Hx Gastrointestinal Disorders: No - GENITOURINARY/GYNECOLOGICAL Hx Genitourinary Disorders: No - PSYCHIATRIC Hx Substance Use: No - SURGICAL HISTORY Hx Surgeries: No Other/Comment: HIP REPLACEMENT - DONT KNOW WHICH HIP - ANESTHESIA Hx Anesthesia: Yes Hx Anesthesia Reactions: No Meds Allergies/Adverse Reactions: Allergies Allergy/AdvReac Type Severity Reaction Status Date / Time No Known Allergies Allergy Verified 11/18/18 12:35 - Medications Medications: Current Medications Acetaminophen (Tylenol 325mg Tab) 650 mg PO Q6 PRN PRN Reason: fever 100.0 Dextrose (Dextrose 50% Inj) 0 ml IV STAT PRN; Protocol PRN Reason: Hypoglycemia Protocol Dextrose (Glutose 15) 0 gm PO ONCE PRN; Protocol PRN Reason: Hypoglycemia Protocol Glucagon (Glucagen Diagnostic Kit) 0 mg IM STAT PRN; Protocol PRN Reason: Hypoglycemia Protocol Heparin Sodium (Porcine) (Heparin) 5,000 units SC Q12 [facility] Metronidazole (Flagyl) 500 mg in 100 mls @ 100 mls/hr IVPB Q8H [facility]; Protocol Last Admin: 12/24/18 08:13 Dose: 100 mls/hr Cefepime HCl 1 gm/ Dextrose 50 mls @ 100 mls/hr IVPB Q24H [facility]; Protocol Last Admin: 12/24/18 10:20 Dose: 100 mls/hr Dextrose (Dextrose 5% In Water 1000 Ml) 1,000 mls @ 0 mls/hr IV .Q0M PRN; Protocol PRN Reason: Hypoglycemia Protocol Sodium Bicarbonate 150 meq/ (Dextrose) 1,000 mls @ 75 mls/hr IV .[id number] [facility] Last Admin: 12/24/18 11:05 Dose: 75 mls/hr Influenza Virus Vaccine (Flucelvax Quad [id number] Syr) 60 mcg IM .ONCE ONE Stop: 12/25/18 10:01 Insulin Human Regular (Novolin R) 0 unit SC ACHS [facility]; Protocol Last Admin: 12/24/18 11:46 Dose: Not Given Metoclopramide HCl (Reglan) 5 mg IVP Q6H [facility] Stop: 12/26/18 08:16 Last Admin: 12/24/18 09:12 Dose: 5 mg Pantoprazole Sodium (Protonix Inj) 40 mg IVP DAILY [facility] Last Admin: 12/24/18 09:12 Dose: 40 mg Rosuvastatin Calcium (Crestor) 10 mg PO HS [facility] Vancomycin HCl (Vancocin 250mg Capsule) 250 mg PO QID [facility] Last Admin: 12/24/18 11:20 Dose: 250 mg Venlafaxine HCl (Effexor Xr) 150 mg PO DAILY [facility] Last Admin: 12/24/18 11:28 Dose: 150 mg Results - Vital Signs Recent Vital Signs: Last Vital Signs Temp 100.0 F H 12/24/18 10:50 Pulse 113 H 12/24/18 10:50 Resp 24 12/24/18 10:50 BP 151/71 H 12/24/18 10:50 Pulse Ox 98 12/24/18 10:50 - Labs Result Diagrams: 12/24/18 09:49 12/24/18 09:49 Labs: Laboratory Results - last 24 hr 12/23/18 12/23/18 12/23/18 16:54 21:35 23:25 WBC RBC Hgb Hct MCV MCH MCHC RDW Plt Count MPV Neut % (Auto) Lymph % (Auto) [place] % (Auto) Eos % (Auto) Baso % (Auto) Neut # (Auto) Lymph # (Auto) [place] # (Auto) Eos # (Auto) Baso # (Auto) Neutrophils % (Manual) Band Neutrophils % Lymphocytes % (Manual) Monocytes % (Manual) Platelet Estimate Plt Clumps, EDTA Poikilocytosis (manual Anisocytosis (manual) Puncture Site Rb pCO2 18 L* pO2 67 L HCO3 15.3 L ABG pH 7.38 ABG Total CO2 11.2 L ABG O2 Saturation 95.6 ABG Base Excess -12.2 L ABG Hemoglobin 12.0 ABG Carboxyhemoglobin 2.0 H POC ABG HHb (Measured) 4.2 ABG Methemoglobin 1.6 Jaden Test Na ABG Potassium A-a O2 Difference 110.0 Respiratory Index 1.6 Hgb O2 Saturation 92.2 L Glucose Lactate Liter Flow 2.0 FiO2 28.0 Crit Value Called To Dr ruiz Crit Value Called By Mello bell/rt Crit Value Read Back Y Blood Gas Notified Time 4752 Sodium Potassium Chloride Carbon Dioxide Anion Gap BUN Creatinine Est GFR ( Amer) Est GFR (Non-Af Amer) POC Glucose (mg/dL) 204 H 208 H Random Glucose Lactic Acid Calcium Phosphorus Magnesium Total Bilirubin AST ALT Alkaline Phosphatase Troponin I NT-Pro-B Natriuret Pep Total Protein Albumin Globulin Albumin/Globulin Ratio Procalcitonin Arterial Blood Potassium Urine Color Urine Clarity Urine pH Ur Specific [place] Urine Protein Urine Glucose (UA) Urine Ketones Urine Blood Urine Nitrate Urine Bilirubin Urine Urobilinogen Ur Leukocyte Esterase Urine WBC (Auto) Urine RBC (Auto) Ur Squamous Epith Cells Amorphous Sediment 12/24/18 12/24/18 12/24/18 07:30 08:26 08:26 WBC 27.7 H RBC 3.91 Hgb 10.0 L Hct 32.2 L MCV 82.4 MCH 25.6 L MCHC 31.1 L RDW 18.1 H Plt Count 446 H MPV 9.1 Neut % (Auto) 90.4 H Lymph % (Auto) 5.1 L [place] % (Auto) 4.2 Eos % (Auto) 0.1 Baso % (Auto) 0.2 Neut # (Auto) 25.0 H Lymph # (Auto) 1.4 [place] # (Auto) 1.2 H Eos # (Auto) 0.0 Baso # (Auto) 0.0 Neutrophils % (Manual) 86 H Band Neutrophils % 5 H Lymphocytes % (Manual) 5 L Monocytes % (Manual) 4 Platelet Estimate Slightly increased H Plt Clumps, EDTA Present Poikilocytosis (manual Slight Anisocytosis (manual) Slight Puncture Site pCO2 pO2 HCO3 ABG pH ABG Total CO2 ABG O2 Saturation ABG Base Excess ABG Hemoglobin ABG Carboxyhemoglobin POC ABG HHb (Measured) ABG Methemoglobin Jaden Test ABG Potassium A-a O2 Difference Respiratory Index Hgb O2 Saturation Glucose Lactate Liter Flow FiO2 Crit Value Called To Crit Value Called By Crit Value Read Back Blood Gas Notified Time Sodium 130 L Potassium 4.4 Chloride 105 Carbon Dioxide 14 L Anion Gap 17 BUN 44 H Creatinine 3.3 H Est GFR ( Amer) 16 Est GFR (Non-Af Amer) 14 POC Glucose (mg/dL) 235 H Random Glucose 242 H D Lactic Acid Calcium 6.9 L Phosphorus Magnesium Total Bilirubin 1.0 AST 23 ALT 6 L Alkaline Phosphatase 88 Troponin I NT-Pro-B Natriuret Pep Total Protein 5.8 L Albumin 2.6 L Globulin 3.2 Albumin/Globulin Ratio 0.8 L Procalcitonin Arterial Blood Potassium Urine Color Urine Clarity Urine pH Ur Specific [place] Urine Protein Urine Glucose (UA) Urine Ketones Urine Blood Urine Nitrate Urine Bilirubin Urine Urobilinogen Ur Leukocyte Esterase Urine WBC (Auto) Urine RBC (Auto) Ur Squamous Epith Cells Amorphous Sediment 12/24/18 12/24/18 12/24/18 08:26 09:33 09:49 WBC 33.3 H RBC 3.96 Hgb 10.2 L Hct 32.7 L MCV 82.4 MCH 25.8 L MCHC 31.3 L RDW 17.9 H Plt Count 497 H MPV 8.8 Neut % (Auto) 91.3 H Lymph % (Auto) 5.0 L [place] % (Auto) 3.3 Eos % (Auto) 0.2 Baso % (Auto) 0.2 Neut # (Auto) 30.4 H Lymph # (Auto) 1.7 [place] # (Auto) 1.1 H Eos # (Auto) 0.1 Baso # (Auto) 0.1 Neutrophils % (Manual) Band Neutrophils % Lymphocytes % (Manual) Monocytes % (Manual) Platelet Estimate Plt Clumps, EDTA Poikilocytosis (manual Anisocytosis (manual) Puncture Site pCO2 pO2 HCO3 ABG pH ABG Total CO2 ABG O2 Saturation ABG Base Excess ABG Hemoglobin ABG Carboxyhemoglobin POC ABG HHb (Measured) ABG Methemoglobin Jaden Test ABG Potassium A-a O2 Difference Respiratory Index Hgb O2 Saturation Glucose Lactate Liter Flow FiO2 Crit Value Called To Crit Value Called By Crit Value Read Back Blood Gas Notified Time Sodium Potassium Chloride Carbon Dioxide Anion Gap BUN Creatinine Est GFR ( Amer) Est GFR (Non-Af Amer) POC Glucose (mg/dL) 221 H Random Glucose Lactic Acid 2.5 H Calcium Phosphorus Magnesium Total Bilirubin AST ALT Alkaline Phosphatase Troponin I NT-Pro-B Natriuret Pep Total Protein Albumin Globulin Albumin/Globulin Ratio Procalcitonin Arterial Blood Potassium Urine Color Urine Clarity Urine pH Ur Specific [place] Urine Protein Urine Glucose (UA) Urine Ketones Urine Blood Urine Nitrate Urine Bilirubin Urine Urobilinogen Ur Leukocyte Esterase Urine WBC (Auto) Urine RBC (Auto) Ur Squamous Epith Cells Amorphous Sediment 12/24/18 12/24/18 12/24/18 09:49 09:49 09:50 WBC RBC Hgb Hct MCV MCH MCHC RDW Plt Count MPV Neut % (Auto) Lymph % (Auto) [place] % (Auto) Eos % (Auto) Baso % (Auto) Neut # (Auto) Lymph # (Auto) [place] # (Auto) Eos # (Auto) Baso # (Auto) Neutrophils % (Manual) Band Neutrophils % Lymphocytes % (Manual) Monocytes % (Manual) Platelet Estimate Plt Clumps, EDTA Poikilocytosis (manual Anisocytosis (manual) Puncture Site Left radial pCO2 17 L* pO2 120 H HCO3 15.0 L ABG pH 7.37 ABG Total CO2 10.3 L ABG O2 Saturation 98.8 H ABG Base Excess -12.8 L ABG Hemoglobin ABG Carboxyhemoglobin POC ABG HHb (Measured) ABG Methemoglobin Jaden Test Na ABG Potassium 4.1 A-a O2 Difference 108.0 Respiratory Index 0.9 Hgb O2 Saturation Glucose 220 H Lactate 2.9 H Liter Flow 3.0 FiO2 35.0 Crit Value Called To Dr autumn garvey Crit Value Called By Willie miles Crit Value Read Back Y Blood Gas Notified Time 956 Sodium 134 133.0 Potassium 4.6 Chloride 108 H 111.0 H Carbon Dioxide 12 L Anion Gap 18 BUN 43 H Creatinine 3.4 H Est GFR ( Amer) 16 Est GFR (Non-Af Amer) 13 POC Glucose (mg/dL) Random Glucose 217 H Lactic Acid Calcium 7.0 L Phosphorus 4.4 Magnesium 1.6 Total Bilirubin 0.9 AST 47 H D ALT 8 L D Alkaline Phosphatase 95 Troponin I < 0.0120 NT-Pro-B Natriuret Pep 8150 H Total Protein 6.2 L Albumin 2.7 L Globulin 3.5 Albumin/Globulin Ratio 0.8 L Procalcitonin 40.44 H Arterial Blood Potassium 4.1 Urine Color Urine Clarity Urine pH Ur Specific [place] Urine Protein Urine Glucose (UA) Urine Ketones Urine Blood Urine Nitrate Urine Bilirubin Urine Urobilinogen Ur Leukocyte Esterase Urine WBC (Auto) Urine RBC (Auto) Ur Squamous Epith Cells Amorphous Sediment 12/24/18 12/24/18 10:29 11:16 WBC RBC Hgb Hct MCV MCH MCHC RDW Plt Count MPV Neut % (Auto) Lymph % (Auto) [place] % (Auto) Eos % (Auto) Baso % (Auto) Neut # (Auto) Lymph # (Auto) [place] # (Auto) Eos # (Auto) Baso # (Auto) Neutrophils % (Manual) Band Neutrophils % Lymphocytes % (Manual) Monocytes % (Manual) Platelet Estimate Plt Clumps, EDTA Poikilocytosis (manual Anisocytosis (manual) Puncture Site pCO2 pO2 HCO3 ABG pH ABG Total CO2 ABG O2 Saturation ABG Base Excess ABG Hemoglobin ABG Carboxyhemoglobin POC ABG HHb (Measured) ABG Methemoglobin Jaden Test ABG Potassium A-a O2 Difference Respiratory Index Hgb O2 Saturation Glucose Lactate Liter Flow FiO2 Crit Value Called To Crit Value Called By Crit Value Read Back Blood Gas Notified Time Sodium Potassium Chloride Carbon Dioxide Anion Gap BUN Creatinine Est GFR ( Amer) Est GFR (Non-Af Amer) POC Glucose (mg/dL) Random Glucose Lactic Acid 2.4 H Calcium Phosphorus Magnesium Total Bilirubin AST ALT Alkaline Phosphatase Troponin I NT-Pro-B Natriuret Pep Total Protein Albumin Globulin Albumin/Globulin Ratio Procalcitonin Arterial Blood Potassium Urine Color [place] Urine Clarity Hazy Urine pH 5.0 Ur Specific [place] 1.049 H Urine Protein Negative Urine Glucose (UA) Normal Urine Ketones Negative Urine Blood Negative Urine Nitrate Negative Urine Bilirubin Negative Urine Urobilinogen 2.0 H Ur Leukocyte Esterase Neg Urine WBC (Auto) 1 Urine RBC (Auto) 4 H Ur Squamous Epith Cells 1 Amorphous Sediment Rare H
--- NOTE | 2018-12-24 14:11 | CP.PCM.CON ---
<Sailaja Payne - Last Filed: 12/24/18 16:57> History of Present Illness - History of Present Illness History of Present Illness: General surgery consult note for Dr. Waters-Sailaja Payne, PGY-2 Pt seen/examined at bedside. Pt is a poor historian, Romansh interpret Vince #[id number] w/significant PMH as below consulted for c diff colitis, distended abdomen. Pt reports that she has been sick for 3 days with multiple episodes of diarrhea (non bloody). Per nursing, home medications included Amoxicillin- pt was recently in hospital for some other reason. Pt stated that she was not recently on antibiotics. Admits that she is tired with a poor appetite. Denies N & V, F & C, SOB, CP, dysuria, cough, rhinorrhea, sore throat, hematuria, hematochezia, other complaints at this time. Upon admission- pt code sepsis due to lactic acid of 2.5. PMH: CKD stage 3, HTN, DM, Anemia, Afib, CVA, hypothyroidism, L adrenal nodule, hx Digoxin toxicity, CHF, urinary retention, dementia PSH: R hip surgery All: NKDA SH: Denies ETOH, tobacco, or illicit drug use FH: Non contributory PMD: Christina Review of Systems - Constitutional Constitutional: Weakness. absent: Chills, Headache, Increased Appetite - EENT Ears: absent: Dizziness - Cardiovascular Cardiovascular: absent: Chest Pain - Respiratory Respiratory: absent: Cough - Gastrointestinal Gastrointestinal: Abdominal Pain, Diarrhea. absent: Hematemesis, Hematochezia, Melena, Nausea, Vomiting - Genitourinary Genitourinary: absent: Difficulty Urinating, Dysuria - Musculoskeletal Musculoskeletal: absent: Back Pain - Integumentary Integumentary: absent: Rash - Neurological Neurological: Weakness Past Patient History - Infectious Disease Hx of Infectious Diseases: None - Past Medical History & Family History Past Medical History?: Yes - Past Social History Smoking Status: Never Smoked - CARDIAC Hx Hypercholesterolemia: Yes Hx Hypertension: Yes - PULMONARY Hx Respiratory Disorders: No - NEUROLOGICAL HX Cerebrovascular Accident: Yes - HEENT Hx HEENT Problems: No - RENAL Hx Chronic Kidney Disease: Yes - ENDOCRINE/METABOLIC Hx Diabetes Mellitus Type 2: Yes Hx Hypothyroidism: Yes - HEMATOLOGICAL/ONCOLOGICAL Hx Blood Disorders: No - INTEGUMENTARY Hx Dermatological Problems: No - MUSCULOSKELETAL/RHEUMATOLOGICAL Hx Falls: Yes - GASTROINTESTINAL Hx Gastrointestinal Disorders: No - GENITOURINARY/GYNECOLOGICAL Hx Genitourinary Disorders: No - PSYCHIATRIC Hx Substance Use: No - SURGICAL HISTORY Hx Surgeries: No Other/Comment: HIP REPLACEMENT - DONT KNOW WHICH HIP - ANESTHESIA Hx Anesthesia: Yes Hx Anesthesia Reactions: No Meds Allergies/Adverse Reactions: Allergies Allergy/AdvReac Type Severity Reaction Status Date / Time No Known Allergies Allergy Verified 11/18/18 12:35 - Medications Medications: Current Medications Acetaminophen (Tylenol 325mg Tab) 650 mg PO Q6 PRN PRN Reason: fever 100.0 Dextrose (Dextrose 50% Inj) 0 ml IV STAT PRN; Protocol PRN Reason: Hypoglycemia Protocol Dextrose (Glutose 15) 0 gm PO ONCE PRN; Protocol PRN Reason: Hypoglycemia Protocol Glucagon (Glucagen Diagnostic Kit) 0 mg IM STAT PRN; Protocol PRN Reason: Hypoglycemia Protocol Heparin Sodium (Porcine) (Heparin) 5,000 units SC Q12 [facility] Metronidazole (Flagyl) 500 mg in 100 mls @ 100 mls/hr IVPB Q8H [facility]; Protocol Last Admin: 12/24/18 08:13 Dose: 100 mls/hr Cefepime HCl 1 gm/ Dextrose 50 mls @ 100 mls/hr IVPB Q24H [facility]; Protocol Last Admin: 12/24/18 10:20 Dose: 100 mls/hr Dextrose (Dextrose 5% In Water 1000 Ml) 1,000 mls @ 0 mls/hr IV .Q0M PRN; Protocol PRN Reason: Hypoglycemia Protocol Sodium Bicarbonate 150 meq/ (Dextrose) 1,000 mls @ 75 mls/hr IV .[id number] [facility] Last Admin: 12/24/18 11:05 Dose: 75 mls/hr Influenza Virus Vaccine (Flucelvax Quad [id number] Syr) 60 mcg IM .ONCE ONE Stop: 12/25/18 10:01 Insulin Human Regular (Novolin R) 0 unit SC ACHS [facility]; Protocol Last Admin: 12/24/18 11:46 Dose: Not Given Metoclopramide HCl (Reglan) 5 mg IVP Q6H [facility] Stop: 12/26/18 08:16 Last Admin: 12/24/18 09:12 Dose: 5 mg Pantoprazole Sodium (Protonix Inj) 40 mg IVP DAILY [facility] Last Admin: 12/24/18 09:12 Dose: 40 mg Rosuvastatin Calcium (Crestor) 10 mg PO [facility] Vancomycin HCl (Vancocin 250mg Capsule) 250 mg PO QID [facility] Last Admin: 12/24/18 11:20 Dose: 250 mg Venlafaxine HCl (Effexor Xr) 150 mg PO DAILY [facility] Last Admin: 12/24/18 11:28 Dose: 150 mg Physical Exam - Constitutional Appears: Non-toxic, No Acute Distress - Head Exam Head Exam: ATRAUMATIC, NORMAL INSPECTION, NORMOCEPHALIC - Eye Exam Eye Exam: EOMI, Normal appearance - ENT Exam ENT Exam: Mucous Membranes Moist, Normal Exam - Neck Exam Neck exam: Positive for: Full Rom - Respiratory Exam Respiratory Exam: Clear to Auscultation Bilateral, NORMAL BREATHING PATTERN - Cardiovascular Exam Cardiovascular Exam: Tachycardia, +S1, +S2 - GI/Abdominal Exam GI & Abdominal Exam: Distended, Firm. absent: Guarding, Hernia, Rebound, Rigid, Soft, Tenderness - Extremities Exam Extremities exam: Positive for: pedal edema (1+ pitting edema) - Neurological Exam Neurological exam: Oriented x3 Additional comments: arousable to verbal and tactile stimuli, somnolent - Psychiatric Exam Additional comments: facial motor and verbal tics noted - Skin Skin Exam: Dry, Intact, Normal Color, Warm Results - Vital Signs Recent Vital Signs: Last Vital Signs Temp 100.0 F H 12/24/18 10:50 Pulse 110 H 12/24/18 14:00 Resp 21 12/24/18 14:00 BP 116/80 12/24/18 13:56 Pulse Ox 100 12/24/18 14:00 - Labs Result Diagrams: 12/24/18 09:49 12/24/18 09:49 Labs: Laboratory Results - last 24 hr 12/23/18 12/23/18 12/23/18 16:54 21:35 23:25 WBC RBC Hgb Hct MCV MCH MCHC RDW Plt Count MPV Neut % (Auto) Lymph % (Auto) [place] % (Auto) Eos % (Auto) Baso % (Auto) Neut # (Auto) Lymph # (Auto) [place] # (Auto) Eos # (Auto) Baso # (Auto) Neutrophils % (Manual) Band Neutrophils % Lymphocytes % (Manual) Monocytes % (Manual) Platelet Estimate Plt Clumps, EDTA Poikilocytosis (manual Anisocytosis (manual) Puncture Site Rb pCO2 18 L* pO2 67 L HCO3 15.3 L ABG pH 7.38 ABG Total CO2 11.2 L ABG O2 Saturation 95.6 ABG Base Excess -12.2 L ABG Hemoglobin 12.0 ABG Carboxyhemoglobin 2.0 H POC ABG HHb (Measured) 4.2 ABG Methemoglobin 1.6 Jaden Test Na ABG Potassium A-a O2 Difference 110.0 Respiratory Index 1.6 Hgb O2 Saturation 92.2 L Glucose Lactate Liter Flow 2.0 FiO2 28.0 Crit Value Called To Dr ruiz Crit Value Called By Mello bell/rt Crit Value Read Back Y Blood Gas Notified Time 2335 Sodium Potassium Chloride Carbon Dioxide Anion Gap BUN Creatinine Est GFR ( Amer) Est GFR (Non-Af Amer) POC Glucose (mg/dL) 204 H 208 H Random Glucose Lactic Acid Calcium Phosphorus Magnesium Total Bilirubin AST ALT Alkaline Phosphatase Troponin I NT-Pro-B Natriuret Pep Total Protein Albumin Globulin Albumin/Globulin Ratio Procalcitonin Arterial Blood Potassium Urine Color Urine Clarity Urine pH Ur Specific [place] Urine Protein Urine Glucose (UA) Urine Ketones Urine Blood Urine Nitrate Urine Bilirubin Urine Urobilinogen Ur Leukocyte Esterase Urine WBC (Auto) Urine RBC (Auto) Ur Squamous Epith Cells Amorphous Sediment 12/24/18 12/24/18 12/24/18 07:30 08:26 08:26 WBC 27.7 H RBC 3.91 Hgb 10.0 L Hct 32.2 L MCV 82.4 MCH 25.6 L MCHC 31.1 L RDW 18.1 H Plt Count 446 H MPV 9.1 Neut % (Auto) 90.4 H Lymph % (Auto) 5.1 L [place] % (Auto) 4.2 Eos % (Auto) 0.1 Baso % (Auto) 0.2 Neut # (Auto) 25.0 H Lymph # (Auto) 1.4 [place] # (Auto) 1.2 H Eos # (Auto) 0.0 Baso # (Auto) 0.0 Neutrophils % (Manual) 86 H Band Neutrophils % 5 H Lymphocytes % (Manual) 5 L Monocytes % (Manual) 4 Platelet Estimate Slightly increased H Plt Clumps, EDTA Present Poikilocytosis (manual Slight Anisocytosis (manual) Slight Puncture Site pCO2 pO2 HCO3 ABG pH ABG Total CO2 ABG O2 Saturation ABG Base Excess ABG Hemoglobin ABG Carboxyhemoglobin POC ABG HHb (Measured) ABG Methemoglobin Jaden Test ABG Potassium A-a O2 Difference Respiratory Index Hgb O2 Saturation Glucose Lactate Liter Flow FiO2 Crit Value Called To Crit Value Called By Crit Value Read Back Blood Gas Notified Time Sodium 130 L Potassium 4.4 Chloride 105 Carbon Dioxide 14 L Anion Gap 17 BUN 44 H Creatinine 3.3 H Est GFR ( Amer) 16 Est GFR (Non-Af Amer) 14 POC Glucose (mg/dL) 235 H Random Glucose 242 H D Lactic Acid Calcium 6.9 L Phosphorus Magnesium Total Bilirubin 1.0 AST 23 ALT 6 L Alkaline Phosphatase 88 Troponin I NT-Pro-B Natriuret Pep Total Protein 5.8 L Albumin 2.6 L Globulin 3.2 Albumin/Globulin Ratio 0.8 L Procalcitonin Arterial Blood Potassium Urine Color Urine Clarity Urine pH Ur Specific [place] Urine Protein Urine Glucose (UA) Urine Ketones Urine Blood Urine Nitrate Urine Bilirubin Urine Urobilinogen Ur Leukocyte Esterase Urine WBC (Auto) Urine RBC (Auto) Ur Squamous Epith Cells Amorphous Sediment 12/24/18 12/24/18 12/24/18 08:26 09:33 09:49 WBC 33.3 H RBC 3.96 Hgb 10.2 L Hct 32.7 L MCV 82.4 MCH 25.8 L MCHC 31.3 L RDW 17.9 H Plt Count 497 H MPV 8.8 Neut % (Auto) 91.3 H Lymph % (Auto) 5.0 L [place] % (Auto) 3.3 Eos % (Auto) 0.2 Baso % (Auto) 0.2 Neut # (Auto) 30.4 H Lymph # (Auto) 1.7 [place] # (Auto) 1.1 H Eos # (Auto) 0.1 Baso # (Auto) 0.1 Neutrophils % (Manual) Band Neutrophils % Lymphocytes % (Manual) Monocytes % (Manual) Platelet Estimate Plt Clumps, EDTA Poikilocytosis (manual Anisocytosis (manual) Puncture Site pCO2 pO2 HCO3 ABG pH ABG Total CO2 ABG O2 Saturation ABG Base Excess ABG Hemoglobin ABG Carboxyhemoglobin POC ABG HHb (Measured) ABG Methemoglobin Jaden Test ABG Potassium A-a O2 Difference Respiratory Index Hgb O2 Saturation Glucose Lactate Liter Flow FiO2 Crit Value Called To Crit Value Called By Crit Value Read Back Blood Gas Notified Time Sodium Potassium Chloride Carbon Dioxide Anion Gap BUN Creatinine Est GFR ( Amer) Est GFR (Non-Af Amer) POC Glucose (mg/dL) 221 H Random Glucose Lactic Acid 2.5 H Calcium Phosphorus Magnesium Total Bilirubin AST ALT Alkaline Phosphatase Troponin I NT-Pro-B Natriuret Pep Total Protein Albumin Globulin Albumin/Globulin Ratio Procalcitonin Arterial Blood Potassium Urine Color Urine Clarity Urine pH Ur Specific [place] Urine Protein Urine Glucose (UA) Urine Ketones Urine Blood Urine Nitrate Urine Bilirubin Urine Urobilinogen Ur Leukocyte Esterase Urine WBC (Auto) Urine RBC (Auto) Ur Squamous Epith Cells Amorphous Sediment 12/24/18 12/24/18 12/24/18 09:49 09:49 09:50 WBC RBC Hgb Hct MCV MCH MCHC RDW Plt Count MPV Neut % (Auto) Lymph % (Auto) [place] % (Auto) Eos % (Auto) Baso % (Auto) Neut # (Auto) Lymph # (Auto) [place] # (Auto) Eos # (Auto) Baso # (Auto) Neutrophils % (Manual) Band Neutrophils % Lymphocytes % (Manual) Monocytes % (Manual) Platelet Estimate Plt Clumps, EDTA Poikilocytosis (manual Anisocytosis (manual) Puncture Site Left radial pCO2 17 L* pO2 120 H HCO3 15.0 L ABG pH 7.37 ABG Total CO2 10.3 L ABG O2 Saturation 98.8 H ABG Base Excess -12.8 L ABG Hemoglobin ABG Carboxyhemoglobin POC ABG HHb (Measured) ABG Methemoglobin Jaden Test Na ABG Potassium 4.1 A-a O2 Difference 108.0 Respiratory Index 0.9 Hgb O2 Saturation Glucose 220 H Lactate 2.9 H Liter Flow 3.0 FiO2 35.0 Crit Value Called To Dr autumn garvey Crit Value Called By Willie miles Crit Value Read Back Y Blood Gas Notified Time 956 Sodium 134 133.0 Potassium 4.6 Chloride 108 H 111.0 H Carbon Dioxide 12 L Anion Gap 18 BUN 43 H Creatinine 3.4 H Est GFR ( Amer) 16 Est GFR (Non-Af Amer) 13 POC Glucose (mg/dL) Random Glucose 217 H Lactic Acid Calcium 7.0 L Phosphorus 4.4 Magnesium 1.6 Total Bilirubin 0.9 AST 47 H D ALT 8 L D Alkaline Phosphatase 95 Troponin I < 0.0120 NT-Pro-B Natriuret Pep 8150 H Total Protein 6.2 L Albumin 2.7 L Globulin 3.5 Albumin/Globulin Ratio 0.8 L Procalcitonin 40.44 H Arterial Blood Potassium 4.1 Urine Color Urine Clarity Urine pH Ur Specific [place] Urine Protein Urine Glucose (UA) Urine Ketones Urine Blood Urine Nitrate Urine Bilirubin Urine Urobilinogen Ur Leukocyte Esterase Urine WBC (Auto) Urine RBC (Auto) Ur Squamous Epith Cells Amorphous Sediment 12/24/18 12/24/18 10:29 11:16 WBC RBC Hgb Hct MCV MCH MCHC RDW Plt Count MPV Neut % (Auto) Lymph % (Auto) [place] % (Auto) Eos % (Auto) Baso % (Auto) Neut # (Auto) Lymph # (Auto) [place] # (Auto) Eos # (Auto) Baso # (Auto) Neutrophils % (Manual) Band Neutrophils % Lymphocytes % (Manual) Monocytes % (Manual) Platelet Estimate Plt Clumps, EDTA Poikilocytosis (manual Anisocytosis (manual) Puncture Site pCO2 pO2 HCO3 ABG pH ABG Total CO2 ABG O2 Saturation ABG Base Excess ABG Hemoglobin ABG Carboxyhemoglobin POC ABG HHb (Measured) ABG Methemoglobin Jaden Test ABG Potassium A-a O2 Difference Respiratory Index Hgb O2 Saturation Glucose Lactate Liter Flow FiO2 Crit Value Called To Crit Value Called By Crit Value Read Back Blood Gas Notified Time Sodium Potassium Chloride Carbon Dioxide Anion Gap BUN Creatinine Est GFR ( Amer) Est GFR (Non-Af Amer) POC Glucose (mg/dL) Random Glucose Lactic Acid 2.4 H Calcium Phosphorus Magnesium Total Bilirubin AST ALT Alkaline Phosphatase Troponin I NT-Pro-B Natriuret Pep Total Protein Albumin Globulin Albumin/Globulin Ratio Procalcitonin Arterial Blood Potassium Urine Color [place] Urine Clarity Hazy Urine pH 5.0 Ur Specific [place] 1.049 H Urine Protein Negative Urine Glucose (UA) Normal Urine Ketones Negative Urine Blood Negative Urine Nitrate Negative Urine Bilirubin Negative Urine Urobilinogen 2.0 H Ur Leukocyte Esterase Neg Urine WBC (Auto) 1 Urine RBC (Auto) 4 H Ur Squamous Epith Cells 1 Amorphous Sediment Rare H Assessment & Plan - Assessment and Plan (Free Text) Assessment: 73F w/C diff colitis Plan: Abx IVF NPO Type and screen Possible OR if pt worsens Payne, PGY-2 - Date & Time Date: 12/24/18 Time: 16:48 <Bienvenido Waters - Last Filed: 12/25/18 21:54> Meds - Medications Medications: Current Medications Acetaminophen (Tylenol 325mg Tab) 650 mg PO Q6 PRN PRN Reason: fever 100.0 Famotidine (Pepcid) 20 mg IVP DAILY [facility] Heparin Sodium (Porcine) (Heparin) 5,000 units SC Q12 [facility] Last Admin: 12/25/18 10:38 Dose: 5,000 units Metronidazole (Flagyl) 500 mg in 100 mls @ 100 mls/hr IVPB Q8H [facility]; Protocol Last Admin: 12/25/18 16:28 Dose: 100 mls/hr Sodium Bicarbonate 150 meq/ (Dextrose) 1,000 mls @ 75 mls/hr IV .[id number] [facility] Last Admin: 12/25/18 14:05 Dose: Not Given Acetaminophen (Ofirmev) 100 mls @ 100 mls/hr IV Q12 [facility] Stop: 12/27/18 10:01 Last Admin: 12/25/18 10:35 Dose: 100 mls/hr Dextrose/Lactated Ringer's (Dextrose 5%/Lactated Ringer's) 1,000 mls @ 40 mls/hr IV .Q24H [facility] Last Admin: 12/25/18 10:35 Dose: 40 mls/hr Influenza Virus Vaccine (Flucelvax Quad [id number] Syr) 60 mcg IM .ONCE ONE Stop: 12/28/18 11:24 Insulin Human Regular (Novolin R) 0 unit SC ACHS [facility]; Protocol Last Admin: 12/25/18 16:28 Dose: 1 units Saccharomyces Boulardii (Florastor) 250 mg PO TID [facility] Last Admin: 12/25/18 17:45 Dose: 250 mg Vancomycin HCl (Vancocin 250mg Capsule) 250 mg PO QID [facility] Last Admin: 12/25/18 17:45 Dose: 250 mg Venlafaxine HCl (Effexor Xr) 150 mg PO DAILY [facility] Last Admin: 12/25/18 10:35 Dose: 150 mg Results - Vital Signs Recent Vital Signs: Last Vital Signs Temp 99.2 F 12/25/18 18:00 Pulse 101 H 12/25/18 18:00 Resp 22 12/25/18 18:00 BP 114/60 12/25/18 17:55 Pulse Ox 98 12/25/18 18:00 - Labs Result Diagrams: 12/25/18 06:23 12/25/18 06:23 Labs: Laboratory Results - last 24 hr 12/24/18 12/25/18 12/25/18 22:39 06:23 06:23 WBC 20.5 H RBC 3.79 L Hgb 9.7 L Hct 30.3 L MCV 80.1 L D MCH 25.7 L MCHC 32.1 L RDW 18.0 H Plt Count 459 H MPV 8.9 Neut % (Auto) 91.4 H Lymph % (Auto) 6.1 L [place] % (Auto) 2.0 Eos % (Auto) 0.3 Baso % (Auto) 0.2 Neut # (Auto) 18.7 H Lymph # (Auto) 1.2 [place] # (Auto) 0.4 Eos # (Auto) 0.1 Baso # (Auto) 0.0 Neutrophils % (Manual) 86 H Band Neutrophils % 4 H Lymphocytes % (Manual) 7 L Monocytes % (Manual) 2 Eosinophils % (Manual) 1 Toxic Granulation Present Platelet Estimate Slightly increased H Polychromasia Slight Hypochromasia (manual) Slight Anisocytosis (manual) Slight Microcytosis (manual) Slight Macrocytosis (manual) Slight Ovalocytes Slight Sodium Potassium Chloride Carbon Dioxide Anion Gap BUN Creatinine Est GFR ( Amer) Est GFR (Non-Af Amer) POC Glucose (mg/dL) Random Glucose Lactic Acid 1.7 Calcium Phosphorus Magnesium Total Bilirubin AST ALT Alkaline Phosphatase Total Protein Albumin Globulin Albumin/Globulin Ratio Urine Color [place] Urine Clarity Hazy Urine pH 5.0 Ur Specific [place] 1.032 H Urine Protein Negative Urine Glucose (UA) Normal Urine Ketones Trace Urine Blood Negative Urine Nitrate Negative Urine Bilirubin Negative Urine Urobilinogen 2.0 H Ur Leukocyte Esterase Trace Urine WBC (Auto) 8 H Urine RBC (Auto) 3 Ur Squamous Epith Cells 1 Hyaline Casts 6-10 H Stool Occult Blood Stool Leukocytes, Qual 12/25/18 12/25/18 12/25/18 06:23 06:23 09:22 WBC RBC Hgb Hct MCV MCH MCHC RDW Plt Count MPV Neut % (Auto) Lymph % (Auto) [place] % (Auto) Eos % (Auto) Baso % (Auto) Neut # (Auto) Lymph # (Auto) [place] # (Auto) Eos # (Auto) Baso # (Auto) Neutrophils % (Manual) Band Neutrophils % Lymphocytes % (Manual) Monocytes % (Manual) Eosinophils % (Manual) Toxic Granulation Platelet Estimate Polychromasia Hypochromasia (manual) Anisocytosis (manual) Microcytosis (manual) Macrocytosis (manual) Ovalocytes Sodium 134 Potassium 4.3 Chloride 103 Carbon Dioxide 19 L Anion Gap 16 BUN 56 H Creatinine 2.9 H Est GFR ( Amer) 19 Est GFR (Non-Af Amer) 16 POC Glucose (mg/dL) Random Glucose 105 D Lactic Acid 1.6 Calcium 6.6 L Phosphorus 3.5 Magnesium 1.6 Total Bilirubin 1.4 H AST 31 ALT 14 Alkaline Phosphatase 78 Total Protein 6.3 Albumin 3.2 L Globulin 3.0 Albumin/Globulin Ratio 1.1 Urine Color Urine Clarity Urine pH Ur Specific [place] Urine Protein Urine Glucose (UA) Urine Ketones Urine Blood Urine Nitrate Urine Bilirubin Urine Urobilinogen Ur Leukocyte Esterase Urine WBC (Auto) Urine RBC (Auto) Ur Squamous Epith Cells Hyaline Casts Stool Occult Blood Positive H Stool Leukocytes, Qual 12/25/18 12/25/18 09:26 16:17 WBC RBC Hgb Hct MCV MCH MCHC RDW Plt Count MPV Neut % (Auto) Lymph % (Auto) [place] % (Auto) Eos % (Auto) Baso % (Auto) Neut # (Auto) Lymph # (Auto) [place] # (Auto) Eos # (Auto) Baso # (Auto) Neutrophils % (Manual) Band Neutrophils % Lymphocytes % (Manual) Monocytes % (Manual) Eosinophils % (Manual) Toxic Granulation Platelet Estimate Polychromasia Hypochromasia (manual) Anisocytosis (manual) Microcytosis (manual) Macrocytosis (manual) Ovalocytes Sodium Potassium Chloride Carbon Dioxide Anion Gap BUN Creatinine Est GFR ( Amer) Est GFR (Non-Af Amer) POC Glucose (mg/dL) 193 H Random Glucose Lactic Acid Calcium Phosphorus Magnesium Total Bilirubin AST ALT Alkaline Phosphatase Total Protein Albumin Globulin Albumin/Globulin Ratio Urine Color Urine Clarity Urine pH Ur Specific [place] Urine Protein Urine Glucose (UA) Urine Ketones Urine Blood Urine Nitrate Urine Bilirubin Urine Urobilinogen Ur Leukocyte Esterase Urine WBC (Auto) Urine RBC (Auto) Ur Squamous Epith Cells Hyaline Casts Stool Occult Blood Stool Leukocytes, Qual Positive H Attending/Attestation - Attestation I have fully participated in the care of the patient.: Yes I have reviewed all pertinent clinical information: Yes Notes (Text): Pt with C diff colitis and abdominal pain and distention Labs and radiology reviewed Ass: C diff colitis, sepsis Plan: C/w current mx No need for any surgical intervention C.w IV antibiotics Monitor lactate level Plan d.w pt in detail
[2018-12-24 15:08] LABS: INR 2.1; PROTHROMBIN TIME 22.6 SECONDS (9.7-12.2)
--- NOTE | 2018-12-24 15:30 | RAD ---
Date of service: 12/24/2018 HISTORY: code sepsis COMPARISON: Comparison chest 12/23/2018. Correlation also made with concurrent CT scan abdomen pelvis FINDINGS: LUNGS: Poor inspiration low lung volumes, crowded bronchovascular markings and mild bibasilar atelectasis. Questionable trace effusions PLEURA: No significant pleural effusion identified, no pneumothorax apparent. CARDIOVASCULAR: Mild moderate aortic atherosclerotic calcification present. Heart is mildly enlarged. OSSEOUS STRUCTURES: No significant abnormalities. VISUALIZED UPPER ABDOMEN: Normal. OTHER FINDINGS: None. IMPRESSION: Poor inspiration low lung volumes, crowded bronchovascular markings and mild bibasilar atelectasis. Questionable trace effusions
--- NOTE | 2018-12-24 15:40 | RAD ---
Date of service: 12/24/2018 HISTORY: Rigid abdomen COMPARISON: Correlation made with concurrent CT scan of the abdomen pelvis FINDINGS: BOWEL: Changes of diffuse colitis not appreciated on this exam no obstruction BONES: No change left-sided total hip replacement and ORIF hardware right femoral neck and proximal femoral shaft. OTHER FINDINGS: Kidneys demonstrate persistent nephrogram. The urinary bladder is distended with excreted opaque contrast material. Mild bibasilar atelectasis. IMPRESSION: Mild bibasilar atelectasis. Findings of colitis seen on concurrent CT scan not appreciated on this study.
--- NOTE | 2018-12-24 15:44 | RAD ---
Date of service: 12/23/2018 HISTORY: sob COMPARISON: Comparison chest 12/22/2018.. This study was also read in conjunction with CT scan of the abdomen pelvis dated 12/24/2018 at 8:40 a.m.. FINDINGS: LUNGS: Mild bibasilar atelectasis. There appears to be some linear scarring and/or fibrosis right upper lobe and left mid lung field emanating extending superolaterally from the left hilum. PLEURA: No significant pleural effusion identified, no pneumothorax apparent. CARDIOVASCULAR: Moderate aortic atherosclerotic calcification present. Normal cardiac size. No pulmonary vascular congestion. OSSEOUS STRUCTURES: No significant abnormalities. VISUALIZED UPPER ABDOMEN: Normal. OTHER FINDINGS: None. IMPRESSION: Mild bibasilar atelectasis. There appears to be some linear scarring and/or fibrosis right upper lobe and left mid lung field emanating extending superolaterally from the left hilum.
[2018-12-24] MEDS ORDERED: Albumin Human 25% (12.5 gm/50 ml) IV ONE (16:30)
[2018-12-24] MEDS ORDERED: HYDROmorphone 1 mg/ml ISec IVP STA (20:25)
--- NOTE | 2018-12-24 21:40 | CON ---
DATE: 12/24/2018 CARDIOLOGY CONSULTATION REASON FOR CONSULTATION: Sinus tachycardia. HISTORY OF PRESENT ILLNESS: The patient is a 73-year-old [place] female who has history of hypertension, chronic insufficiency, history of depression, presents because of abdominal pain, nausea and vomiting as well as diarrhea. The patient denies any retrosternal chest pain and is unaware of any history of heart attack in the past. SOCIAL HISTORY: The patient is nonsmoker and nondrinker. She lives by herself. MEDICATIONS: Cefepime 1 g intravenously daily, Effexor 150 mg daily, heparin 5000 units subcutaneously every 12 hours, Protonix 40 mg intravenously daily, Reglan 5 mg intravenously every 6 hours, sodium bicarbonate infusion, vancomycin 250 mg p.o. four times daily. REVIEW OF SYSTEMS: The patient denies retrosternal chest pain. The patient did have a fever. She denies any recent fall. PHYSICAL EXAMINATION: GENERAL: The patient is an elderly female who does not appear to be in acute distress. VITAL SIGNS: Blood pressure 125/65, heart rate 110, temperature today is 98.1, yesterday's temperature was 101.5. HEENT: Pale conjunctivae. CHEST: Clear. HEART: S1 and S2, regular. ABDOMEN: Mildly distended and diffusely tender. A scar of previous appendectomy noted. EXTREMITIES: Trace leg edema. LABORATORY DATA: Today's SMA-7: Sodium 134, potassium 4.6, chloride 108, CO2 of 12, glucose 217, BUN 43, creatinine 3.4. One set of troponin is negative. ProBNP is 8150. Admitting INR is 1.6. Today's hemoglobin and hematocrit 10.20 and 32.7, white count 33.3, platelet count 497,000. Admitting EKG revealed sinus tachycardia at the rate of 119, old inferior infarct. Today's chest x-ray revealed mild bilateral alveolar infiltrate, borderline cardiomegaly. Initial abdomen and pelvis CT scan revealed possible colitis, bibasilar patchy ground glass pulmonary opacities, hepatomegaly, hepatic steatosis, cholelithiasis, borderline splenomegaly. Today's abdomen and pelvis CT scan report is still pending. Echocardiography study performed on 11/19/2018 revealed normal ejection fraction, normal diastolic function and mild aortic insufficiency. Blood cultures negative after 24 hours. ASSESSMENT: 1. Sinus tachycardia most likely related to the patient's underlying pneumonia, dehydration and abdominal pain. 2. Chronic insufficiency. 3. Mild aortic insufficiency. 4. Consider underlying gastroenteritis. 5. History of depression. 6. Colitis. RECOMMENDATIONS: Continue current IV cefepime at 1 g daily, IV Flagyl 500 mg intravenously every 8 hours, subcutaneous heparin 5000 units every 12 hours, vancomycin 250 mg p.o. four times daily. I will obtain repeat 12-lead EKG, and the patient was evaluated by community center coordinator, Dr. Holder for possible ICU transfer for sepsis. Sukhdev Dave MD
--- NOTE | 2018-12-24 22:04 | PCM.SEPTIC ---
Sepsis Progress Note - Reassessment Type Date of Evaluation: 12/24/18 Time of Evaluation: 12:00 Reassessment Type: Non-invasive reassessment - Non Invasive Reassessment Were the most recent vital sign reviewed: Yes Vital Sign (Latest): Temp Pulse Resp BP Pulse Ox 98.3 F 110 H 21 116/80 100 12/24/18 16:00 12/24/18 14:00 12/24/18 14:00 12/24/18 13:56 12/24/18 14:00 Cardiovascular: Yes: Tachycardia Respiratory: Yes: Normal Breath Sounds, Rales Capillary Refill: Normal (Less than 2 sec) Pulses: Normal Radial, Normal Dorsalis Pedis, Normal Posterior Tibialis Skin: Normal Color - Invasive Reassessment (complete 2 of 4) Was a Central Venous Pressure Measurement obtained within 6 Hours after the presentation of septic shock: No Was a central venous oxygen measurement obtained within 6 hours after the presentation of septic shock: No Was a bedside cardiovascular ultrasound performed within 6 hours after the presentation of septic shock: No Was a passive leg raise performed or was a fluid challenge performed within 6 hrs of the initial fluid bolus: No
[2018-12-25] MEDS: metroNIDAZOLE IV 500 mg/100 ml 500 MG/100 ML BAG IVPB SCH ×4 (00:10→23:43)
[2018-12-25] MEDS: Sodium Bicarbonate 8.4% 150 MEQ in Dextrose 5% In Water 850 ML IV SCH ×3 (01:56→14:05)
[2018-12-25 06:27] LABS: BASO % 0.2 % (0.0-2.0); EOS # 0.1 K/uL (0.0-0.7); EOS % 0.3 % (0.0-4.0); HEMOGLOBIN 9.7 g/dL (11.0-16.0); LYMPH # 1.2 K/uL (1.0-4.3); LYMPH % 6.1 % (20.0-40.0); MEAN CELL VOLUME 80.1 fL (81.0-99.0); MEAN CORPUSCULAR HEMOGLOBIN 25.7 pg (27.0-31.0); MEAN CORPUSCULAR HGB CONC 32.1 g/dL (33.0-37.0); MEAN PLATELET VOLUME 8.9 fL (7.2-11.7); MONO # 0.4 K/uL (0.0-0.8); NEUT # 18.7 K/uL (1.8-7.0); NEUT % 91.4 % (50.0-75.0); PLATELET COUNT 459 K/uL (130-400); RBC 3.79 Mil/uL (3.80-5.20); WHITE BLOOD COUNT 20.5 K/uL (4.8-10.8)
[2018-12-25 06:40] LABS: SQUAMOUS EPITHIAL 1 /hpf (0-5); URINE BILIRUBIN NEGATIVE (NEGATIVE); URINE BLOOD NEGATIVE (NEGATIVE); URINE CLARITY Hazy (Clear); URINE COLOR Amber (YELLOW); URINE GLUCOSE (UA) NORMAL (Normal); URINE LEUKOCYTE ESTERASE TRACE Leu/uL (Negative); URINE PROTEIN NEGATIVE (NEGATIVE)
[2018-12-25 06:48] LABS: ALB/GLOB RATIO 1.1 (1.0-2.1); ALBUMIN 3.2 g/dL (3.5-5.0); CALCIUM 6.6 mg/dl (8.6-10.4)
--- NOTE | 2018-12-25 06:55 | CP.PCM.PN ---
<Sailaja Payne - Last Filed: 12/25/18 06:52> Subjective - Date & Time of Evaluation Date of Evaluation: 12/25/18 Time of Evaluation: 06:53 - Subjective Subjective: General surgery progress note for Dr. Waters-Sailaja Payne, PGY-2 Pt seen/examined at bedside Pt with continued abdominal distention overnight, however now complaining of abdominal pain. Continues to have BMs. LA now 1.6 from a max 3.0. WBC 20 from 33.3 Objective - Vital Signs/Intake and Output Vital Signs (last 24 hours): Temp Pulse Resp BP Pulse Ox 98.3 F 110 H 21 116/80 100 12/24/18 16:00 12/24/18 14:00 12/24/18 14:00 12/24/18 13:56 12/24/18 14:00 Intake and Output: 12/24/18 12/25/18 18:59 06:59 Intake Total 925 Output Total 300 Balance 625 - Medications Medications: Current Medications Acetaminophen (Tylenol 325mg Tab) 650 mg PO Q6 PRN PRN Reason: fever 100.0 Dextrose (Dextrose 50% Inj) 0 ml IV STAT PRN; Protocol PRN Reason: Hypoglycemia Protocol Dextrose (Glutose 15) 0 gm PO ONCE PRN; Protocol PRN Reason: Hypoglycemia Protocol Glucagon (Glucagen Diagnostic Kit) 0 mg IM STAT PRN; Protocol PRN Reason: Hypoglycemia Protocol Heparin Sodium (Porcine) (Heparin) 5,000 units SC Q12 [facility] Metronidazole (Flagyl) 500 mg in 100 mls @ 100 mls/hr IVPB Q8H [facility]; Protocol Last Admin: 12/25/18 00:10 Dose: 100 mls/hr Cefepime HCl 1 gm/ Dextrose 50 mls @ 100 mls/hr IVPB Q24H [facility]; Protocol Last Admin: 12/24/18 10:20 Dose: 100 mls/hr Dextrose (Dextrose 5% In Water 1000 Ml) 1,000 mls @ 0 mls/hr IV .Q0M PRN; Protocol PRN Reason: Hypoglycemia Protocol Sodium Bicarbonate 150 meq/ (Dextrose) 1,000 mls @ 75 mls/hr IV .[id number] [facility] Last Admin: 12/25/18 02:15 Dose: 75 mls/hr Influenza Virus Vaccine (Flucelvax Quad 9578-1563 Syr) 60 mcg IM .ONCE ONE Stop: 12/25/18 10:01 Insulin Human Regular (Novolin R) 0 unit SC ACHS [facility]; Protocol Last Admin: 12/24/18 22:00 Dose: Not Given Metoclopramide HCl (Reglan) 5 mg IVP Q6H [facility] Stop: 12/26/18 08:16 Last Admin: 12/24/18 09:12 Dose: 5 mg Pantoprazole Sodium (Protonix Inj) 40 mg IVP DAILY [facility] Last Admin: 12/24/18 09:12 Dose: 40 mg Rosuvastatin Calcium (Crestor) 10 mg PO HS [facility] Last Admin: 12/24/18 22:15 Dose: 10 mg Vancomycin HCl (Vancocin 250mg Capsule) 250 mg PO QID [facility] Last Admin: 12/24/18 22:15 Dose: 250 mg Venlafaxine HCl (Effexor Xr) 150 mg PO DAILY [facility] Last Admin: 12/24/18 11:28 Dose: 150 mg - Labs Labs: 12/25/18 06:23 12/25/18 06:23 PT 22.6 SECONDS (9.7-12.2) H D 12/24/18 14:57 INR 2.1 D 12/24/18 14:57 APTT 33 SECONDS (21-34) 12/24/18 14:57 - Constitutional Appears: Non-toxic, No Acute Distress - Head Exam Head Exam: ATRAUMATIC, NORMAL INSPECTION, NORMOCEPHALIC - Eye Exam Eye Exam: EOMI, Normal appearance - ENT Exam ENT Exam: Mucous Membranes Moist, Normal Exam - Neck Exam Neck Exam: Full ROM, Normal Inspection - Respiratory Exam Respiratory Exam: NORMAL BREATHING PATTERN - Cardiovascular Exam Cardiovascular Exam: Tachycardia - GI/Abdominal Exam GI & Abdominal Exam: Distended, Firm, Tenderness (diffuse). absent: Guarding, Rigid, Soft, Rebound - Extremities Exam Extremities Exam: Pedal Edema (1+ b/l) - Neurological Exam Neurological Exam: absent: Alert (arousable to verbal stimuli) - Psychiatric Exam Psychiatric exam: Normal Affect, Normal Mood - Skin Skin Exam: Dry, Intact, Normal Color, Warm Assessment and Plan - Assessment and Plan (Free Text) Assessment: 73F w/C diff colitis Plan: Continue ABx Continue IVF Monitor abdomen Continue supportive care FU bladder pressure measurement today Possible surgical intervention if pt acutely worsens DW Dr. Waters <Bienvenido Waters - Last Filed: 12/25/18 21:55> Objective - Vital Signs/Intake and Output Vital Signs (last 24 hours): Temp Pulse Resp BP Pulse Ox 99.2 F 101 H 22 114/60 98 12/25/18 18:00 12/25/18 18:00 12/25/18 18:00 12/25/18 17:55 12/25/18 18:00 Intake and Output: 12/25/18 12/26/18 18:59 06:59 Intake Total 1610 Output Total 480 Balance 1130 - Medications Medications: Current Medications Acetaminophen (Tylenol 325mg Tab) 650 mg PO Q6 PRN PRN Reason: fever 100.0 Famotidine (Pepcid) 20 mg IVP DAILY [facility] Heparin Sodium (Porcine) (Heparin) 5,000 units SC Q12 [facility] Last Admin: 12/25/18 10:38 Dose: 5,000 units Metronidazole (Flagyl) 500 mg in 100 mls @ 100 mls/hr IVPB Q8H [facility]; Protocol Last Admin: 12/25/18 16:28 Dose: 100 mls/hr Sodium Bicarbonate 150 meq/ (Dextrose) 1,000 mls @ 75 mls/hr IV .[id number] [facility] Last Admin: 12/25/18 14:05 Dose: Not Given Acetaminophen (Ofirmev) 100 mls @ 100 mls/hr IV Q12 [facility] Stop: 12/27/18 10:01 Last Admin: 12/25/18 10:35 Dose: 100 mls/hr Dextrose/Lactated Ringer's (Dextrose 5%/Lactated Ringer's) 1,000 mls @ 40 mls/hr IV .Q24H [facility] Last Admin: 12/25/18 10:35 Dose: 40 mls/hr Influenza Virus Vaccine (Flucelvax Quad [id number] Syr) 60 mcg IM .ONCE ONE Stop: 12/28/18 11:24 Insulin Human Regular (Novolin R) 0 unit SC ACHS [facility]; Protocol Last Admin: 12/25/18 16:28 Dose: 1 units Saccharomyces Boulardii (Florastor) 250 mg PO TID [facility] Last Admin: 12/25/18 17:45 Dose: 250 mg Vancomycin HCl (Vancocin 250mg Capsule) 250 mg PO QID [facility] Last Admin: 12/25/18 17:45 Dose: 250 mg Venlafaxine HCl (Effexor Xr) 150 mg PO DAILY [facility] Last Admin: 12/25/18 10:35 Dose: 150 mg - Labs Labs: 12/25/18 06:23 12/25/18 06:23 PT 22.6 SECONDS (9.7-12.2) H D 12/24/18 14:57 INR 2.1 D 12/24/18 14:57 APTT 33 SECONDS (21-34) 12/24/18 14:57 Attending/Attestation - Attestation I have personally seen and examined this patient.: Yes I have fully participated in the care of the patient.: Yes I have reviewed all pertinent clinical information, including history, physical exam and plan: Yes Notes (Text): Pt was seen and examined at bedside Agree with above note and assessment Pt with C diff colitis, improving clinically Abdomen: Soft, mildly distended, mild tender C.w IV antibiotics c/w current mx Plan d.w pt in detail Risk and benefit explained in detail.
[2018-12-25 08:12] LABS: BANDS 4 % (0-2); EOSINOPHIL 1 % (0-4); MONOCYTE 2 % (0-10); TOTAL CELLS COUNTED 100
[2018-12-25 08:13] LABS: ANISOCYTOSIS SLIGHT; LYMPHOCYTE 7 % (20-40); NEUTROPHIL 86 % (50-75); PLATELET ESTIMATE SLIGHTLY INCREASED (NORMAL)
[2018-12-25 08:14] LABS: HYPOCHROMIC SLIGHT; MICROCYTOSIS SLIGHT; POLYCHROMIC SLIGHT
[2018-12-25 08:15] LABS: OVALOCYTES SLIGHT; TOXIC GRANULATION PRESENT
--- NOTE | 2018-12-25 09:41 | CP.CCUPN ---
CCU Subjective - Physician Review Events Since Last Encounter (Free Text): 12/25/18 09:41 Patient now having some abdominal pain, the distention still present in the abdomen, rigidity minimally noted. But patient is otherwise comfortable. Vital signs are stable except mild tachycardia. Patient is not able to eat well. Cooperative noted. No nausea no vomiting. But the patient had a liquid bowel movements last night also. On examination: Vital signs are stable at this time. Currently receiving intravenous bicarb drip Chest bilateral good air entry Heart sounds are regular Abdomen tenderness noted diffusely Labs reviewed WBC improving slowly. Creatinine level is also on the high side. CAT scan, x-ray imaging studies reviewed Assessment and recommendation: Patient is a 72-year-old female with a history of acute on chronic renal insufficiency Diabetes Hypertension. Hypertensive heart disease. History of digoxin toxicity recently admitted now with a possible acute C. difficile diffuse pancolitis. Complicated with the sepsis. Renal insufficiency We will discontinue IV antibiotic except treatment for C. difficile at this time. We will closely monitor in ICU. Continue with IV fluid of dextrose and will follow the patient. DVT prophylaxis CCU Objective - Vital Signs / Intake & Output Vital Signs (Last 4 hours): Vital Signs Pulse Resp BP Pulse Ox 12/25/18 08:00 116 H 27 H 97 12/25/18 07:55 118 H 26 H 120/64 96 12/25/18 07:00 120 H 28 H 97 12/25/18 06:55 120 H 28 H 125/66 95 12/25/18 06:00 119 H 27 H 97 12/25/18 05:58 117 H 31 H 134/68 95 Intake and Output (Last 8hrs): Intake & Output 12/24/18 12/25/18 12/25/18 22:59 06:59 14:59 Intake Total 625 Output Total 300 Balance 325 Intake: Intake, IV Amount 625 Right Hand 375 Right Wrist 150 Right Wrist Y-Port 100 Output: Urine 300 Urethral ([place]) 300 Other: # Bowel Movements 1 - Medications Active Medications: Active Medications Generic Name Dose Route Start Last Admin Trade Name Freq PRN Reason Stop Dose Admin Acetaminophen 650 mg 12/24/18 02:09 Tylenol 325mg Tab PO Q6 PRN fever 100.0 Famotidine 20 mg 12/25/18 10:00 Pepcid IVP Q12 [facility] Heparin Sodium (Porcine) 5,000 units 12/24/18 10:00 Heparin SC Q12 [facility] Metronidazole 500 mg in 100 mls @ 100 mls/hr 12/23/18 16:00 12/25/18 00:10 Flagyl IVPB 100 mls/hr Q8H [facility] Administration Protocol Sodium Bicarbonate 150 meq/ 1,000 mls @ 75 mls/hr 12/24/18 10:15 12/25/18 02:15 Dextrose IV 75 mls/hr .[id number] SHIRA Administration Acetaminophen 100 mls @ 100 mls/hr 12/25/18 10:00 Ofirmev IV 12/27/18 10:01 Q12 SHIRA Dextrose/Lactated Ringer's 1,000 mls @ 40 mls/hr 12/25/18 09:45 Dextrose 5%/Lactated Ringer's IV .Q24H [facility] Influenza Virus Vaccine 60 mcg 12/25/18 10:00 Flucelvax Quad [id number] Syr IM 12/25/18 10:01 .ONCE ONE Insulin Human Regular 0 unit 12/23/18 16:30 12/24/18 22:00 Novolin R SC Not Given ACHS [facility] Protocol Saccharomyces Boulardii 250 mg 12/25/18 10:00 Florastor PO TID [facility] Vancomycin HCl 250 mg 12/24/18 10:15 12/24/18 22:15 Vancocin 250mg Capsule PO 250 mg QID [facility] Administration Venlafaxine HCl 150 mg 12/24/18 10:00 12/24/18 11:28 Effexor Xr PO 150 mg DAILY [facility] Administration - Patient Studies Lab Studies: Microbiology Studies 12/22/18 19:45 Blood Culture - Preliminary Blood NO GROWTH AFTER 48 HOURS 12/22/18 19:10 Blood Culture - Preliminary Blood NO GROWTH AFTER 48 HOURS 12/22/18 19:54 Urine Culture - Final Urine,Catheterized No Growth (<1,000 CFU/ML) Lab Studies 12/25/18 12/25/18 12/25/18 Range/Units 09:22 06:23 06:23 WBC (4.8-10.8) K/uL RBC (3.80-5.20) Mil/uL Hgb (11.0-16.0) g/dL Hct (34.0-47.0) % MCV (81.0-99.0) fL MCH (27.0-31.0) pg MCHC (33.0-37.0) g/dL RDW (11.5-14.5) % Plt Count (130-400) K/uL MPV (7.2-11.7) fL Neut % (Auto) (50.0-75.0) % Lymph % (Auto) (20.0-40.0) % [place] % (Auto) (0.0-10.0) % Eos % (Auto) (0.0-4.0) % Baso % (Auto) (0.0-2.0) % Neut # (Auto) (1.8-7.0) K/uL Lymph # (Auto) (1.0-4.3) K/uL [place] # (Auto) (0.0-0.8) K/uL Eos # (Auto) (0.0-0.7) K/uL Baso # (Auto) (0.0-0.2) K/uL Neutrophils % (Manual) (50-75) % Band Neutrophils % (0-2) % Lymphocytes % (Manual) (20-40) % Monocytes % (Manual) (0-10) % Eosinophils % (Manual) (0-4) % Toxic Granulation Platelet Estimate (NORMAL) Polychromasia Hypochromasia (manual) Anisocytosis (manual) Microcytosis (manual) Macrocytosis (manual) Ovalocytes PT (9.7-12.2) SECONDS INR APTT (21-34) SECONDS Puncture Site pCO2 (35-45) mm/Hg pO2 (80-100) mm/Hg HCO3 (21-28) mmol/L ABG pH (7.35-7.45) ABG Total CO2 (22-28) mmol/L ABG O2 Saturation (95-98) % ABG Base Excess (-2.0-3.0) mmol/L Jaden Test ABG Potassium (3.6-5.2) mmol/L A-a O2 Difference mm/Hg Respiratory Index Glucose (65-105) mg/dl Lactate (0.7-2.1) mmol/L Liter Flow FiO2 % Crit Value Called To Crit Value Called By Crit Value Read Back Blood Gas Notified Time Sodium 134 (132-148) mmol/L Potassium 4.3 (3.6-5.2) mmol/L Chloride 103 (98-107) mmol/L Carbon Dioxide 19 L (22-30) mmol/L Anion Gap 16 (10-20) BUN 56 H (7-17) mg/dL Creatinine 2.9 H (0.7-1.2) mg/dL Est GFR ( Amer) 19 Est GFR (Non-Af Amer) 16 Random Glucose 105 D (65-105) mg/dL Lactic Acid 1.6 (0.7-2.1) mmol/L Calcium 6.6 L (8.6-10.4) mg/dl Phosphorus 3.5 (2.5-4.5) mg/dL Magnesium 1.6 (1.6-2.3) mg/dL Total Bilirubin 1.4 H (0.2-1.3) mg/dL AST 31 (14-36) U/L ALT 14 (9-52) U/L Alkaline Phosphatase 78 (38-126) U/L Troponin I (0.00-0.120) ng/mL NT-Pro-B Natriuret Pep (0-900) pg/mL Total Protein 6.3 (6.3-8.3) g/dL Albumin 3.2 L (3.5-5.0) g/dL Globulin 3.0 (2.2-3.9) gm/dL Albumin/Globulin Ratio 1.1 (1.0-2.1) Procalcitonin (0.19-0.49) NG/ML Arterial Blood Potassium (3.6-5.2) mmol/L Urine Color (YELLOW) Urine Clarity (Clear) Urine pH (5.0-8.0) Ur Specific [place] (1.003-1.030) Urine Protein (NEGATIVE) mg/dL Urine Glucose (UA) (Normal) mg/dL Urine Ketones (NEGATIVE) mg/dL Urine Blood (NEGATIVE) Urine Nitrate (NEGATIVE) Urine Bilirubin (NEGATIVE) Urine Urobilinogen (0.2-1.0) mg/dL Ur Leukocyte Esterase (Negative) Leonie/uL Urine WBC (Auto) (0-5) /hpf Urine RBC (Auto) (0-3) /hpf Ur Squamous Epith Cells (0-5) /hpf Amorphous Sediment (<OCC) /ul Hyaline Casts (0-2) /lpf Stool Occult Blood Positive H (NEGATIVE) Digoxin (0.8-2.0) ng/mL C. difficile Ag & Toxin (NEGATIVE) Blood Type Antibody Screen 12/25/18 12/25/18 12/24/18 Range/Units 06:23 06:23 22:39 WBC 20.5 H (4.8-10.8) K/uL RBC 3.79 L (3.80-5.20) Mil/uL Hgb 9.7 L (11.0-16.0) g/dL Hct 30.3 L (34.0-47.0) % MCV 80.1 L D (81.0-99.0) fL MCH 25.7 L (27.0-31.0) pg MCHC 32.1 L (33.0-37.0) g/dL RDW 18.0 H (11.5-14.5) % Plt Count 459 H (130-400) K/uL MPV 8.9 (7.2-11.7) fL Neut % (Auto) 91.4 H (50.0-75.0) % Lymph % (Auto) 6.1 L (20.0-40.0) % [place] % (Auto) 2.0 (0.0-10.0) % Eos % (Auto) 0.3 (0.0-4.0) % Baso % (Auto) 0.2 (0.0-2.0) % Neut # (Auto) 18.7 H (1.8-7.0) K/uL Lymph # (Auto) 1.2 (1.0-4.3) K/uL [place] # (Auto) 0.4 (0.0-0.8) K/uL Eos # (Auto) 0.1 (0.0-0.7) K/uL Baso # (Auto) 0.0 (0.0-0.2) K/uL Neutrophils % (Manual) 86 H (50-75) % Band Neutrophils % 4 H (0-2) % Lymphocytes % (Manual) 7 L (20-40) % Monocytes % (Manual) 2 (0-10) % Eosinophils % (Manual) 1 (0-4) % Toxic Granulation Present Platelet Estimate Slightly increased H (NORMAL) Polychromasia Slight Hypochromasia (manual) Slight Anisocytosis (manual) Slight Microcytosis (manual) Slight Macrocytosis (manual) Slight Ovalocytes Slight PT (9.7-12.2) SECONDS INR APTT (21-34) SECONDS Puncture Site pCO2 (35-45) mm/Hg pO2 (80-100) mm/Hg HCO3 (21-28) mmol/L ABG pH (7.35-7.45) ABG Total CO2 (22-28) mmol/L ABG O2 Saturation (95-98) % ABG Base Excess (-2.0-3.0) mmol/L Jaden Test ABG Potassium (3.6-5.2) mmol/L A-a O2 Difference mm/Hg Respiratory Index Glucose (65-105) mg/dl Lactate (0.7-2.1) mmol/L Liter Flow FiO2 % Crit Value Called To Crit Value Called By Crit Value Read Back Blood Gas Notified Time Sodium (132-148) mmol/L Potassium (3.6-5.2) mmol/L Chloride (98-107) mmol/L Carbon Dioxide (22-30) mmol/L Anion Gap (10-20) BUN (7-17) mg/dL Creatinine (0.7-1.2) mg/dL Est GFR ( Amer) Est GFR (Non-Af Amer) Random Glucose (65-105) mg/dL Lactic Acid 1.7 (0.7-2.1) mmol/L Calcium (8.6-10.4) mg/dl Phosphorus (2.5-4.5) mg/dL Magnesium (1.6-2.3) mg/dL Total Bilirubin (0.2-1.3) mg/dL AST (14-36) U/L ALT (9-52) U/L Alkaline Phosphatase (38-126) U/L Troponin I (0.00-0.120) ng/mL NT-Pro-B Natriuret Pep (0-900) pg/mL Total Protein (6.3-8.3) g/dL Albumin (3.5-5.0) g/dL Globulin (2.2-3.9) gm/dL Albumin/Globulin Ratio (1.0-2.1) Procalcitonin (0.19-0.49) NG/ML Arterial Blood Potassium (3.6-5.2) mmol/L Urine Color [place] (YELLOW) Urine Clarity Hazy (Clear) Urine pH 5.0 (5.0-8.0) Ur Specific [place] 1.032 H (1.003-1.030) Urine Protein Negative (NEGATIVE) mg/dL Urine Glucose (UA) Normal (Normal) mg/dL Urine Ketones Trace (NEGATIVE) mg/dL Urine Blood Negative (NEGATIVE) Urine Nitrate Negative (NEGATIVE) Urine Bilirubin Negative (NEGATIVE) Urine Urobilinogen 2.0 H (0.2-1.0) mg/dL Ur Leukocyte Esterase Trace (Negative) Leonie/uL Urine WBC (Auto) 8 H (0-5) /hpf Urine RBC (Auto) 3 (0-3) /hpf Ur Squamous Epith Cells 1 (0-5) /hpf Amorphous Sediment (<OCC) /ul Hyaline Casts 6-10 H (0-2) /lpf Stool Occult Blood (NEGATIVE) Digoxin (0.8-2.0) ng/mL C. difficile Ag & Toxin (NEGATIVE) Blood Type Antibody Screen 12/24/18 12/24/18 12/24/18 Range/Units 18:11 18:11 14:57 WBC (4.8-10.8) K/uL RBC (3.80-5.20) Mil/uL Hgb (11.0-16.0) g/dL Hct (34.0-47.0) % MCV (81.0-99.0) fL MCH (27.0-31.0) pg MCHC (33.0-37.0) g/dL RDW (11.5-14.5) % Plt Count (130-400) K/uL MPV (7.2-11.7) fL Neut % (Auto) (50.0-75.0) % Lymph % (Auto) (20.0-40.0) % [place] % (Auto) (0.0-10.0) % Eos % (Auto) (0.0-4.0) % Baso % (Auto) (0.0-2.0) % Neut # (Auto) (1.8-7.0) K/uL Lymph # (Auto) (1.0-4.3) K/uL [place] # (Auto) (0.0-0.8) K/uL Eos # (Auto) (0.0-0.7) K/uL Baso # (Auto) (0.0-0.2) K/uL Neutrophils % (Manual) (50-75) % Band Neutrophils % (0-2) % Lymphocytes % (Manual) (20-40) % Monocytes % (Manual) (0-10) % Eosinophils % (Manual) (0-4) % Toxic Granulation Platelet Estimate (NORMAL) Polychromasia Hypochromasia (manual) Anisocytosis (manual) Microcytosis (manual) Macrocytosis (manual) Ovalocytes PT (9.7-12.2) SECONDS INR APTT (21-34) SECONDS Puncture Site pCO2 (35-45) mm/Hg pO2 (80-100) mm/Hg HCO3 (21-28) mmol/L ABG pH (7.35-7.45) ABG Total CO2 (22-28) mmol/L ABG O2 Saturation (95-98) % ABG Base Excess (-2.0-3.0) mmol/L Jaden Test ABG Potassium (3.6-5.2) mmol/L A-a O2 Difference mm/Hg Respiratory Index Glucose (65-105) mg/dl Lactate (0.7-2.1) mmol/L Liter Flow FiO2 % Crit Value Called To Crit Value Called By Crit Value Read Back Blood Gas Notified Time Sodium (132-148) mmol/L Potassium (3.6-5.2) mmol/L Chloride (98-107) mmol/L Carbon Dioxide (22-30) mmol/L Anion Gap (10-20) BUN (7-17) mg/dL Creatinine (0.7-1.2) mg/dL Est GFR ( Amer) Est GFR (Non-Af Amer) Random Glucose (65-105) mg/dL Lactic Acid 1.7 3.0 H (0.7-2.1) mmol/L Calcium (8.6-10.4) mg/dl Phosphorus (2.5-4.5) mg/dL Magnesium (1.6-2.3) mg/dL Total Bilirubin (0.2-1.3) mg/dL AST (14-36) U/L ALT (9-52) U/L Alkaline Phosphatase (38-126) U/L Troponin I (0.00-0.120) ng/mL NT-Pro-B Natriuret Pep (0-900) pg/mL Total Protein (6.3-8.3) g/dL Albumin (3.5-5.0) g/dL Globulin (2.2-3.9) gm/dL Albumin/Globulin Ratio (1.0-2.1) Procalcitonin (0.19-0.49) NG/ML Arterial Blood Potassium (3.6-5.2) mmol/L Urine Color (YELLOW) Urine Clarity (Clear) Urine pH (5.0-8.0) Ur Specific [place] (1.003-1.030) Urine Protein (NEGATIVE) mg/dL Urine Glucose (UA) (Normal) mg/dL Urine Ketones (NEGATIVE) mg/dL Urine Blood (NEGATIVE) Urine Nitrate (NEGATIVE) Urine Bilirubin (NEGATIVE) Urine Urobilinogen (0.2-1.0) mg/dL Ur Leukocyte Esterase (Negative) Leonie/uL Urine WBC (Auto) (0-5) /hpf Urine RBC (Auto) (0-3) /hpf Ur Squamous Epith Cells (0-5) /hpf Amorphous Sediment (<OCC) /ul Hyaline Casts (0-2) /lpf Stool Occult Blood (NEGATIVE) Digoxin (0.8-2.0) ng/mL C. difficile Ag & Toxin (NEGATIVE) Blood Type AB POSITIVE Antibody Screen Negative 12/24/18 12/24/18 12/24/18 Range/Units 14:57 14:57 13:47 WBC (4.8-10.8) K/uL RBC (3.80-5.20) Mil/uL Hgb (11.0-16.0) g/dL Hct (34.0-47.0) % MCV (81.0-99.0) fL MCH (27.0-31.0) pg MCHC (33.0-37.0) g/dL RDW (11.5-14.5) % Plt Count (130-400) K/uL MPV (7.2-11.7) fL Neut % (Auto) (50.0-75.0) % Lymph % (Auto) (20.0-40.0) % [place] % (Auto) (0.0-10.0) % Eos % (Auto) (0.0-4.0) % Baso % (Auto) (0.0-2.0) % Neut # (Auto) (1.8-7.0) K/uL Lymph # (Auto) (1.0-4.3) K/uL [place] # (Auto) (0.0-0.8) K/uL Eos # (Auto) (0.0-0.7) K/uL Baso # (Auto) (0.0-0.2) K/uL Neutrophils % (Manual) (50-75) % Band Neutrophils % (0-2) % Lymphocytes % (Manual) (20-40) % Monocytes % (Manual) (0-10) % Eosinophils % (Manual) (0-4) % Toxic Granulation Platelet Estimate (NORMAL) Polychromasia Hypochromasia (manual) Anisocytosis (manual) Microcytosis (manual) Macrocytosis (manual) Ovalocytes PT 22.6 H D (9.7-12.2) SECONDS INR 2.1 D APTT 33 (21-34) SECONDS Puncture Site pCO2 (35-45) mm/Hg pO2 (80-100) mm/Hg HCO3 (21-28) mmol/L ABG pH (7.35-7.45) ABG Total CO2 (22-28) mmol/L ABG O2 Saturation (95-98) % ABG Base Excess (-2.0-3.0) mmol/L Jaden Test ABG Potassium (3.6-5.2) mmol/L A-a O2 Difference mm/Hg Respiratory Index Glucose (65-105) mg/dl Lactate (0.7-2.1) mmol/L Liter Flow FiO2 % Crit Value Called To Crit Value Called By Crit Value Read Back Blood Gas Notified Time Sodium (132-148) mmol/L Potassium (3.6-5.2) mmol/L Chloride (98-107) mmol/L Carbon Dioxide (22-30) mmol/L Anion Gap (10-20) BUN (7-17) mg/dL Creatinine (0.7-1.2) mg/dL Est GFR ( Amer) Est GFR (Non-Af Amer) Random Glucose (65-105) mg/dL Lactic Acid (0.7-2.1) mmol/L Calcium (8.6-10.4) mg/dl Phosphorus (2.5-4.5) mg/dL Magnesium (1.6-2.3) mg/dL Total Bilirubin (0.2-1.3) mg/dL AST (14-36) U/L ALT (9-52) U/L Alkaline Phosphatase (38-126) U/L Troponin I (0.00-0.120) ng/mL NT-Pro-B Natriuret Pep (0-900) pg/mL Total Protein (6.3-8.3) g/dL Albumin (3.5-5.0) g/dL Globulin (2.2-3.9) gm/dL Albumin/Globulin Ratio (1.0-2.1) Procalcitonin (0.19-0.49) NG/ML Arterial Blood Potassium (3.6-5.2) mmol/L Urine Color (YELLOW) Urine Clarity (Clear) Urine pH (5.0-8.0) Ur Specific [place] (1.003-1.030) Urine Protein (NEGATIVE) mg/dL Urine Glucose (UA) (Normal) mg/dL Urine Ketones (NEGATIVE) mg/dL Urine Blood (NEGATIVE) Urine Nitrate (NEGATIVE) Urine Bilirubin (NEGATIVE) Urine Urobilinogen (0.2-1.0) mg/dL Ur Leukocyte Esterase (Negative) Leonie/uL Urine WBC (Auto) (0-5) /hpf Urine RBC (Auto) (0-3) /hpf Ur Squamous Epith Cells (0-5) /hpf Amorphous Sediment (<OCC) /ul Hyaline Casts (0-2) /lpf Stool Occult Blood (NEGATIVE) Digoxin 0.9 (0.8-2.0) ng/mL C. difficile Ag & Toxin Positive H (NEGATIVE) Blood Type Antibody Screen 12/24/18 12/24/18 12/24/18 Range/Units 11:16 10:29 09:50 WBC (4.8-10.8) K/uL RBC (3.80-5.20) Mil/uL Hgb (11.0-16.0) g/dL Hct (34.0-47.0) % MCV (81.0-99.0) fL MCH (27.0-31.0) pg MCHC (33.0-37.0) g/dL RDW (11.5-14.5) % Plt Count (130-400) K/uL MPV (7.2-11.7) fL Neut % (Auto) (50.0-75.0) % Lymph % (Auto) (20.0-40.0) % [place] % (Auto) (0.0-10.0) % Eos % (Auto) (0.0-4.0) % Baso % (Auto) (0.0-2.0) % Neut # (Auto) (1.8-7.0) K/uL Lymph # (Auto) (1.0-4.3) K/uL [place] # (Auto) (0.0-0.8) K/uL Eos # (Auto) (0.0-0.7) K/uL Baso # (Auto) (0.0-0.2) K/uL Neutrophils % (Manual) (50-75) % Band Neutrophils % (0-2) % Lymphocytes % (Manual) (20-40) % Monocytes % (Manual) (0-10) % Eosinophils % (Manual) (0-4) % Toxic Granulation Platelet Estimate (NORMAL) Polychromasia Hypochromasia (manual) Anisocytosis (manual) Microcytosis (manual) Macrocytosis (manual) Ovalocytes PT (9.7-12.2) SECONDS INR APTT (21-34) SECONDS Puncture Site Left radial pCO2 17 L* (35-45) mm/Hg pO2 120 H (80-100) mm/Hg HCO3 15.0 L (21-28) mmol/L ABG pH 7.37 (7.35-7.45) ABG Total CO2 10.3 L (22-28) mmol/L ABG O2 Saturation 98.8 H (95-98) % ABG Base Excess -12.8 L (-2.0-3.0) mmol/L Jaden Test Na ABG Potassium 4.1 (3.6-5.2) mmol/L A-a O2 Difference 108.0 mm/Hg Respiratory Index 0.9 Glucose 220 H (65-105) mg/dl Lactate 2.9 H (0.7-2.1) mmol/L Liter Flow 3.0 FiO2 35.0 % Crit Value Called To Dr autumn garvey Crit Value Called By Willie miles Crit Value Read Back Y Blood Gas Notified Time 956 Sodium 133.0 (132-148) mmol/L Potassium (3.6-5.2) mmol/L Chloride 111.0 H (98-107) mmol/L Carbon Dioxide (22-30) mmol/L Anion Gap (10-20) BUN (7-17) mg/dL Creatinine (0.7-1.2) mg/dL Est GFR ( Amer) Est GFR (Non-Af Amer) Random Glucose (65-105) mg/dL Lactic Acid 2.4 H (0.7-2.1) mmol/L Calcium (8.6-10.4) mg/dl Phosphorus (2.5-4.5) mg/dL Magnesium (1.6-2.3) mg/dL Total Bilirubin (0.2-1.3) mg/dL AST (14-36) U/L ALT (9-52) U/L Alkaline Phosphatase (38-126) U/L Troponin I (0.00-0.120) ng/mL NT-Pro-B Natriuret Pep (0-900) pg/mL Total Protein (6.3-8.3) g/dL Albumin (3.5-5.0) g/dL Globulin (2.2-3.9) gm/dL Albumin/Globulin Ratio (1.0-2.1) Procalcitonin (0.19-0.49) NG/ML Arterial Blood Potassium 4.1 (3.6-5.2) mmol/L Urine Color [place] (YELLOW) Urine Clarity Hazy (Clear) Urine pH 5.0 (5.0-8.0) Ur Specific [place] 1.049 H (1.003-1.030) Urine Protein Negative (NEGATIVE) mg/dL Urine Glucose (UA) Normal (Normal) mg/dL Urine Ketones Negative (NEGATIVE) mg/dL Urine Blood Negative (NEGATIVE) Urine Nitrate Negative (NEGATIVE) Urine Bilirubin Negative (NEGATIVE) Urine Urobilinogen 2.0 H (0.2-1.0) mg/dL Ur Leukocyte Esterase Neg (Negative) Leonie/uL Urine WBC (Auto) 1 (0-5) /hpf Urine RBC (Auto) 4 H (0-3) /hpf Ur Squamous Epith Cells 1 (0-5) /hpf Amorphous Sediment Rare H (<OCC) /ul Hyaline Casts (0-2) /lpf Stool Occult Blood (NEGATIVE) Digoxin (0.8-2.0) ng/mL C. difficile Ag & Toxin (NEGATIVE) Blood Type Antibody Screen 12/24/18 12/24/18 12/24/18 Range/Units 09:49 09:49 09:49 WBC 33.3 H (4.8-10.8) K/uL RBC 3.96 (3.80-5.20) Mil/uL Hgb 10.2 L (11.0-16.0) g/dL Hct 32.7 L (34.0-47.0) % MCV 82.4 (81.0-99.0) fL MCH 25.8 L (27.0-31.0) pg MCHC 31.3 L (33.0-37.0) g/dL RDW 17.9 H (11.5-14.5) % Plt Count 497 H (130-400) K/uL MPV 8.8 (7.2-11.7) fL Neut % (Auto) 91.3 H (50.0-75.0) % Lymph % (Auto) 5.0 L (20.0-40.0) % [place] % (Auto) 3.3 (0.0-10.0) % Eos % (Auto) 0.2 (0.0-4.0) % Baso % (Auto) 0.2 (0.0-2.0) % Neut # (Auto) 30.4 H (1.8-7.0) K/uL Lymph # (Auto) 1.7 (1.0-4.3) K/uL [place] # (Auto) 1.1 H (0.0-0.8) K/uL Eos # (Auto) 0.1 (0.0-0.7) K/uL Baso # (Auto) 0.1 (0.0-0.2) K/uL Neutrophils % (Manual) (50-75) % Band Neutrophils % (0-2) % Lymphocytes % (Manual) (20-40) % Monocytes % (Manual) (0-10) % Eosinophils % (Manual) (0-4) % Toxic Granulation Platelet Estimate (NORMAL) Polychromasia Hypochromasia (manual) Anisocytosis (manual) Microcytosis (manual) Macrocytosis (manual) Ovalocytes PT (9.7-12.2) SECONDS INR APTT (21-34) SECONDS Puncture Site pCO2 (35-45) mm/Hg pO2 (80-100) mm/Hg HCO3 (21-28) mmol/L ABG pH (7.35-7.45) ABG Total CO2 (22-28) mmol/L ABG O2 Saturation (95-98) % ABG Base Excess (-2.0-3.0) mmol/L Jaden Test ABG Potassium (3.6-5.2) mmol/L A-a O2 Difference mm/Hg Respiratory Index Glucose (65-105) mg/dl Lactate (0.7-2.1) mmol/L Liter Flow FiO2 % Crit Value Called To Crit Value Called By Crit Value Read Back Blood Gas Notified Time Sodium 134 (132-148) mmol/L Potassium 4.6 (3.6-5.2) mmol/L Chloride 108 H (98-107) mmol/L Carbon Dioxide 12 L (22-30) mmol/L Anion Gap 18 (10-20) BUN 43 H (7-17) mg/dL Creatinine 3.4 H (0.7-1.2) mg/dL Est GFR ( Amer) 16 Est GFR (Non-Af Amer) 13 Random Glucose 217 H (65-105) mg/dL Lactic Acid (0.7-2.1) mmol/L Calcium 7.0 L (8.6-10.4) mg/dl Phosphorus 4.4 (2.5-4.5) mg/dL Magnesium 1.6 (1.6-2.3) mg/dL Total Bilirubin 0.9 (0.2-1.3) mg/dL AST 47 H D (14-36) U/L ALT 8 L D (9-52) U/L Alkaline Phosphatase 95 (38-126) U/L Troponin I < 0.0120 (0.00-0.120) ng/mL NT-Pro-B Natriuret Pep 8150 H (0-900) pg/mL Total Protein 6.2 L (6.3-8.3) g/dL Albumin 2.7 L (3.5-5.0) g/dL Globulin 3.5 (2.2-3.9) gm/dL Albumin/Globulin Ratio 0.8 L (1.0-2.1) Procalcitonin 40.44 H (0.19-0.49) NG/ML Arterial Blood Potassium (3.6-5.2) mmol/L Urine Color (YELLOW) Urine Clarity (Clear) Urine pH (5.0-8.0) Ur Specific [place] (1.003-1.030) Urine Protein (NEGATIVE) mg/dL Urine Glucose (UA) (Normal) mg/dL Urine Ketones (NEGATIVE) mg/dL Urine Blood (NEGATIVE) Urine Nitrate (NEGATIVE) Urine Bilirubin (NEGATIVE) Urine Urobilinogen (0.2-1.0) mg/dL Ur Leukocyte Esterase (Negative) Leonie/uL Urine WBC (Auto) (0-5) /hpf Urine RBC (Auto) (0-3) /hpf Ur Squamous Epith Cells (0-5) /hpf Amorphous Sediment (<OCC) /ul Hyaline Casts (0-2) /lpf Stool Occult Blood (NEGATIVE) Digoxin (0.8-2.0) ng/mL C. difficile Ag & Toxin (NEGATIVE) Blood Type Antibody Screen Laboratory Results - last 24 hr 12/24/18 12/24/18 12/24/18 09:49 09:49 09:49 WBC 33.3 H RBC 3.96 Hgb 10.2 L Hct 32.7 L MCV 82.4 MCH 25.8 L MCHC 31.3 L RDW 17.9 H Plt Count 497 H MPV 8.8 Neut % (Auto) 91.3 H Lymph % (Auto) 5.0 L [place] % (Auto) 3.3 Eos % (Auto) 0.2 Baso % (Auto) 0.2 Neut # (Auto) 30.4 H Lymph # (Auto) 1.7 [place] # (Auto) 1.1 H Eos # (Auto) 0.1 Baso # (Auto) 0.1 Neutrophils % (Manual) Band Neutrophils % Lymphocytes % (Manual) Monocytes % (Manual) Eosinophils % (Manual) Toxic Granulation Platelet Estimate Polychromasia Hypochromasia (manual) Anisocytosis (manual) Microcytosis (manual) Macrocytosis (manual) Ovalocytes PT INR APTT Puncture Site pCO2 pO2 HCO3 ABG pH ABG Total CO2 ABG O2 Saturation ABG Base Excess Jaden Test ABG Potassium A-a O2 Difference Respiratory Index Glucose Lactate Liter Flow FiO2 Crit Value Called To Crit Value Called By Crit Value Read Back Blood Gas Notified Time Sodium 134 Potassium 4.6 Chloride 108 H Carbon Dioxide 12 L Anion Gap 18 BUN 43 H Creatinine 3.4 H Est GFR ( Amer) 16 Est GFR (Non-Af Amer) 13 Random Glucose 217 H Lactic Acid Calcium 7.0 L Phosphorus 4.4 Magnesium 1.6 Total Bilirubin 0.9 AST 47 H D ALT 8 L D Alkaline Phosphatase 95 Troponin I < 0.0120 NT-Pro-B Natriuret Pep 8150 H Total Protein 6.2 L Albumin 2.7 L Globulin 3.5 Albumin/Globulin Ratio 0.8 L Procalcitonin 40.44 H Arterial Blood Potassium Urine Color Urine Clarity Urine pH Ur Specific [place] Urine Protein Urine Glucose (UA) Urine Ketones Urine Blood Urine Nitrate Urine Bilirubin Urine Urobilinogen Ur Leukocyte Esterase Urine WBC (Auto) Urine RBC (Auto) Ur Squamous Epith Cells Amorphous Sediment Hyaline Casts Stool Occult Blood Digoxin C. difficile Ag & Toxin Blood Type Antibody Screen 12/24/18 12/24/18 12/24/18 09:50 10:29 11:16 WBC RBC Hgb Hct MCV MCH MCHC RDW Plt Count MPV Neut % (Auto) Lymph % (Auto) [place] % (Auto) Eos % (Auto) Baso % (Auto) Neut # (Auto) Lymph # (Auto) [place] # (Auto) Eos # (Auto) Baso # (Auto) Neutrophils % (Manual) Band Neutrophils % Lymphocytes % (Manual) Monocytes % (Manual) Eosinophils % (Manual) Toxic Granulation Platelet Estimate Polychromasia Hypochromasia (manual) Anisocytosis (manual) Microcytosis (manual) Macrocytosis (manual) Ovalocytes PT INR APTT Puncture Site Left radial pCO2 17 L* pO2 120 H HCO3 15.0 L ABG pH 7.37 ABG Total CO2 10.3 L ABG O2 Saturation 98.8 H ABG Base Excess -12.8 L Jaden Test Na ABG Potassium 4.1 A-a O2 Difference 108.0 Respiratory Index 0.9 Glucose 220 H Lactate 2.9 H Liter Flow 3.0 FiO2 35.0 Crit Value Called To Dr autumn garvey Crit Value Called By Willie oracle adf developer Crit Value Read Back Y Blood Gas Notified Time 956 Sodium 133.0 Potassium Chloride 111.0 H Carbon Dioxide Anion Gap BUN Creatinine Est GFR ( Amer) Est GFR (Non-Af Amer) Random Glucose Lactic Acid 2.4 H Calcium Phosphorus Magnesium Total Bilirubin AST ALT Alkaline Phosphatase Troponin I NT-Pro-B Natriuret Pep Total Protein Albumin Globulin Albumin/Globulin Ratio Procalcitonin Arterial Blood Potassium 4.1 Urine Color [place] Urine Clarity Hazy Urine pH 5.0 Ur Specific [place] 1.049 H Urine Protein Negative Urine Glucose (UA) Normal Urine Ketones Negative Urine Blood Negative Urine Nitrate Negative Urine Bilirubin Negative Urine Urobilinogen 2.0 H Ur Leukocyte Esterase Neg Urine WBC (Auto) 1 Urine RBC (Auto) 4 H Ur Squamous Epith Cells 1 Amorphous Sediment Rare H Hyaline Casts Stool Occult Blood Digoxin C. difficile Ag & Toxin Blood Type Antibody Screen 12/24/18 12/24/18 12/24/18 13:47 14:57 14:57 WBC RBC Hgb Hct MCV MCH MCHC RDW Plt Count MPV Neut % (Auto) Lymph % (Auto) [place] % (Auto) Eos % (Auto) Baso % (Auto) Neut # (Auto) Lymph # (Auto) [place] # (Auto) Eos # (Auto) Baso # (Auto) Neutrophils % (Manual) Band Neutrophils % Lymphocytes % (Manual) Monocytes % (Manual) Eosinophils % (Manual) Toxic Granulation Platelet Estimate Polychromasia Hypochromasia (manual) Anisocytosis (manual) Microcytosis (manual) Macrocytosis (manual) Ovalocytes PT 22.6 H D INR 2.1 D APTT 33 Puncture Site pCO2 pO2 HCO3 ABG pH ABG Total CO2 ABG O2 Saturation ABG Base Excess Jaden Test ABG Potassium A-a O2 Difference Respiratory Index Glucose Lactate Liter Flow FiO2 Crit Value Called To Crit Value Called By Crit Value Read Back Blood Gas Notified Time Sodium Potassium Chloride Carbon Dioxide Anion Gap BUN Creatinine Est GFR ( Amer) Est GFR (Non-Af Amer) Random Glucose Lactic Acid Calcium Phosphorus Magnesium Total Bilirubin AST ALT Alkaline Phosphatase Troponin I NT-Pro-B Natriuret Pep Total Protein Albumin Globulin Albumin/Globulin Ratio Procalcitonin Arterial Blood Potassium Urine Color Urine Clarity Urine pH Ur Specific [place] Urine Protein Urine Glucose (UA) Urine Ketones Urine Blood Urine Nitrate Urine Bilirubin Urine Urobilinogen Ur Leukocyte Esterase Urine WBC (Auto) Urine RBC (Auto) Ur Squamous Epith Cells Amorphous Sediment Hyaline Casts Stool Occult Blood Digoxin 0.9 C. difficile Ag & Toxin Positive H Blood Type Antibody Screen 12/24/18 12/24/18 12/24/18 14:57 18:11 18:11 WBC RBC Hgb Hct MCV MCH MCHC RDW Plt Count MPV Neut % (Auto) Lymph % (Auto) [place] % (Auto) Eos % (Auto) Baso % (Auto) Neut # (Auto) Lymph # (Auto) [place] # (Auto) Eos # (Auto) Baso # (Auto) Neutrophils % (Manual) Band Neutrophils % Lymphocytes % (Manual) Monocytes % (Manual) Eosinophils % (Manual) Toxic Granulation Platelet Estimate Polychromasia Hypochromasia (manual) Anisocytosis (manual) Microcytosis (manual) Macrocytosis (manual) Ovalocytes PT INR APTT Puncture Site pCO2 pO2 HCO3 ABG pH ABG Total CO2 ABG O2 Saturation ABG Base Excess Jaden Test ABG Potassium A-a O2 Difference Respiratory Index Glucose Lactate Liter Flow FiO2 Crit Value Called To Crit Value Called By Crit Value Read Back Blood Gas Notified Time Sodium Potassium Chloride Carbon Dioxide Anion Gap BUN Creatinine Est GFR ( Amer) Est GFR (Non-Af Amer) Random Glucose Lactic Acid 3.0 H 1.7 Calcium Phosphorus Magnesium Total Bilirubin AST ALT Alkaline Phosphatase Troponin I NT-Pro-B Natriuret Pep Total Protein Albumin Globulin Albumin/Globulin Ratio Procalcitonin Arterial Blood Potassium Urine Color Urine Clarity Urine pH Ur Specific [place] Urine Protein Urine Glucose (UA) Urine Ketones Urine Blood Urine Nitrate Urine Bilirubin Urine Urobilinogen Ur Leukocyte Esterase Urine WBC (Auto) Urine RBC (Auto) Ur Squamous Epith Cells Amorphous Sediment Hyaline Casts Stool Occult Blood Digoxin C. difficile Ag & Toxin Blood Type AB POSITIVE Antibody Screen Negative 12/24/18 12/25/18 12/25/18 22:39 06:23 06:23 WBC 20.5 H RBC 3.79 L Hgb 9.7 L Hct 30.3 L MCV 80.1 L D MCH 25.7 L MCHC 32.1 L RDW 18.0 H Plt Count 459 H MPV 8.9 Neut % (Auto) 91.4 H Lymph % (Auto) 6.1 L [place] % (Auto) 2.0 Eos % (Auto) 0.3 Baso % (Auto) 0.2 Neut # (Auto) 18.7 H Lymph # (Auto) 1.2 [place] # (Auto) 0.4 Eos # (Auto) 0.1 Baso # (Auto) 0.0 Neutrophils % (Manual) 86 H Band Neutrophils % 4 H Lymphocytes % (Manual) 7 L Monocytes % (Manual) 2 Eosinophils % (Manual) 1 Toxic Granulation Present Platelet Estimate Slightly increased H Polychromasia Slight Hypochromasia (manual) Slight Anisocytosis (manual) Slight Microcytosis (manual) Slight Macrocytosis (manual) Slight Ovalocytes Slight PT INR APTT Puncture Site pCO2 pO2 HCO3 ABG pH ABG Total CO2 ABG O2 Saturation ABG Base Excess Jaden Test ABG Potassium A-a O2 Difference Respiratory Index Glucose Lactate Liter Flow FiO2 Crit Value Called To Crit Value Called By Crit Value Read Back Blood Gas Notified Time Sodium Potassium Chloride Carbon Dioxide Anion Gap BUN Creatinine Est GFR ( Amer) Est GFR (Non-Af Amer) Random Glucose Lactic Acid 1.7 Calcium Phosphorus Magnesium Total Bilirubin AST ALT Alkaline Phosphatase Troponin I NT-Pro-B Natriuret Pep Total Protein Albumin Globulin Albumin/Globulin Ratio Procalcitonin Arterial Blood Potassium Urine Color [place] Urine Clarity Hazy Urine pH 5.0 Ur Specific [place] 1.032 H Urine Protein Negative Urine Glucose (UA) Normal Urine Ketones Trace Urine Blood Negative Urine Nitrate Negative Urine Bilirubin Negative Urine Urobilinogen 2.0 H Ur Leukocyte Esterase Trace Urine WBC (Auto) 8 H Urine RBC (Auto) 3 Ur Squamous Epith Cells 1 Amorphous Sediment Hyaline Casts 6-10 H Stool Occult Blood Digoxin C. difficile Ag & Toxin Blood Type Antibody Screen 12/25/18 12/25/18 12/25/18 06:23 06:23 09:22 WBC RBC Hgb Hct MCV MCH MCHC RDW Plt Count MPV Neut % (Auto) Lymph % (Auto) [place] % (Auto) Eos % (Auto) Baso % (Auto) Neut # (Auto) Lymph # (Auto) [place] # (Auto) Eos # (Auto) Baso # (Auto) Neutrophils % (Manual) Band Neutrophils % Lymphocytes % (Manual) Monocytes % (Manual) Eosinophils % (Manual) Toxic Granulation Platelet Estimate Polychromasia Hypochromasia (manual) Anisocytosis (manual) Microcytosis (manual) Macrocytosis (manual) Ovalocytes PT INR APTT Puncture Site pCO2 pO2 HCO3 ABG pH ABG Total CO2 ABG O2 Saturation ABG Base Excess Jaden Test ABG Potassium A-a O2 Difference Respiratory Index Glucose Lactate Liter Flow FiO2 Crit Value Called To Crit Value Called By Crit Value Read Back Blood Gas Notified Time Sodium 134 Potassium 4.3 Chloride 103 Carbon Dioxide 19 L Anion Gap 16 BUN 56 H Creatinine 2.9 H Est GFR ( Amer) 19 Est GFR (Non-Af Amer) 16 Random Glucose 105 D Lactic Acid 1.6 Calcium 6.6 L Phosphorus 3.5 Magnesium 1.6 Total Bilirubin 1.4 H AST 31 ALT 14 Alkaline Phosphatase 78 Troponin I NT-Pro-B Natriuret Pep Total Protein 6.3 Albumin 3.2 L Globulin 3.0 Albumin/Globulin Ratio 1.1 Procalcitonin Arterial Blood Potassium Urine Color Urine Clarity Urine pH Ur Specific [place] Urine Protein Urine Glucose (UA) Urine Ketones Urine Blood Urine Nitrate Urine Bilirubin Urine Urobilinogen Ur Leukocyte Esterase Urine WBC (Auto) Urine RBC (Auto) Ur Squamous Epith Cells Amorphous Sediment Hyaline Casts Stool Occult Blood Positive H Digoxin C. difficile Ag & Toxin Blood Type Antibody Screen Radiology Impressions: Radiology Impressions Chest X-Ray 12/23/18 22:56 IMPRESSION: Mild bibasilar atelectasis. There appears to be some linear scarring and/or fibrosis right upper lobe and left mid lung field emanating extending superolaterally from the left hilum. Abdomen X-Ray 12/24/18 07:46 IMPRESSION: Mild bibasilar atelectasis. Findings of colitis seen on concurrent CT scan not appreciated on this study. Abdomen/Pelvis CT 12/24/18 07:57 IMPRESSION: Diffuse significant and diffuse colonic wall thickening consistent with colitis. Rule out infectious versus inflammatory or possibly pseudomembranous colitis. Increased ascites. No free intraperitoneal air identified. Cholelithiasis. Left adrenal nodule for which follow-up MRI could be performed further evaluation if indicated. Prolonged nephrograms from contrast injected on prior CT scan abdomen pelvis 12/22/2018. Findings may represent renal insufficiency however clinical correlation recommended. Bilateral renal cysts. Multiple upper abdominal and retroperitoneal lymph nodes Mild anasarca Small to medium size hiatal hernia with large amount of fluid in the distal esophagus consistent with reflux. Multiple upper abdominal Bibasilar atelectasis with suspected tiny effusions. Chest X-Ray 12/24/18 09:32 IMPRESSION: Poor inspiration low lung volumes, crowded bronchovascular markings and mild bibasilar atelectasis. Questionable trace effusions EKG/Cardiology Studies: Cardiology / EKG Studies 12/24/18 09:35 ELECTROCARDIOGRAM Stat Comment: Mode Of Transportation: Reason For Exam: Sepsis Patient Fingerstick Blood Sugar Results: 149 Critical Care Progress Note - Nutrition Nutrition: Nutrition Category Date Time Status NPO Diet [DIET] Diets 12/24/18 Breakfast Active
[2018-12-25] MEDS ORDERED: Dextrose 5%/Lactated Ringer's 1,000 ML IV SCH (09:45)
[2018-12-25] MEDS: (Novolin R) Insulin Human Regular 100 units/ml vial SC SCH ×4 (09:49→22:00)
[2018-12-25] MEDS ORDERED: Pneumococcal 23-Valent Vaccine IM ONE (10:00)
[2018-12-25] MEDS ORDERED: Influenza Vaccine 60 mcg/0.5 mL SYR (4YR UP) IM ONE (10:00)
[2018-12-25] MEDS: Venlafaxine 150 mg ER Cap PO SCH (10:35)
[2018-12-25] MEDS: Vancomycin Hydrochloride 250 mg Capsule (Oral) PO SCH ×4 (10:35→22:43)
[2018-12-25] MEDS: Saccharomyces Boulardi 250 mg Cap PO SCH ×3 (10:38→17:45)
--- NOTE | 2018-12-25 12:07 | CP.PCM.PN ---
Subjective - Date & Time of Evaluation Date of Evaluation: 12/25/18 Time of Evaluation: 12:00 - Subjective Subjective: f/u abd pain.Above reviewed. Colitis. c diff pos. WBC improving. No RB, melena, chills, GARCIA, cough, hematuria, hemoptysis, GARCIA, cough, myalgia, arthralgia, tremor Objective - Vital Signs/Intake and Output Vital Signs (last 24 hours): Temp Pulse Resp BP Pulse Ox 99.4 F 111 H 25 H 113/69 98 12/25/18 04:00 12/25/18 11:00 12/25/18 11:00 12/25/18 10:55 12/25/18 11:00 Intake and Output: 12/25/18 12/25/18 06:59 18:59 Intake Total 1045 495 Output Total 240 445 Balance 805 50 - Medications Medications: Current Medications Acetaminophen (Tylenol 325mg Tab) 650 mg PO Q6 PRN PRN Reason: fever 100.0 Famotidine (Pepcid) 20 mg IVP DAILY [facility] Heparin Sodium (Porcine) (Heparin) 5,000 units SC Q12 [facility] Last Admin: 12/25/18 10:38 Dose: 5,000 units Metronidazole (Flagyl) 500 mg in 100 mls @ 100 mls/hr IVPB Q8H [facility]; Protocol Last Admin: 12/25/18 08:39 Dose: 100 mls/hr Sodium Bicarbonate 150 meq/ (Dextrose) 1,000 mls @ 75 mls/hr IV .[id number] [facility] [place] Last Admin: 12/25/18 02:15 Dose: 75 mls/hr Acetaminophen (Ofirmev) 100 mls @ 100 mls/hr IV Q12 [facility] [place] Stop: 12/27/18 10:01 Last Admin: 12/25/18 10:35 Dose: 100 mls/hr Dextrose/Lactated Ringer's (Dextrose 5%/Lactated Ringer's) 1,000 mls @ 40 mls/hr IV .Q24H [facility] [place] Last Admin: 12/25/18 10:35 Dose: 40 mls/hr Influenza Virus Vaccine (Flucelvax Quad [id number] Syr) 60 mcg IM .ONCE ONE Stop: 12/28/18 11:24 Insulin Human Regular (Novolin R) 0 unit SC ACHS [facility]; Protocol Last Admin: 12/25/18 09:49 Dose: Not Given Saccharomyces Boulardii (Florastor) 250 mg PO TID [facility] Last Admin: 12/25/18 10:38 Dose: 250 mg Vancomycin HCl (Vancocin 250mg Capsule) 250 mg PO QID [facility] [place] Last Admin: 12/25/18 10:35 Dose: 250 mg Venlafaxine HCl (Effexor Xr) 150 mg PO DAILY [facility] [place] Last Admin: 12/25/18 10:35 Dose: 150 mg - Labs Labs: 12/25/18 06:23 12/25/18 06:23 PT 22.6 SECONDS (9.7-12.2) H D 12/24/18 14:57 INR 2.1 D 12/24/18 14:57 APTT 33 SECONDS (21-34) 12/24/18 14:57 - Constitutional Appears: Confused - Neck Exam Neck Exam: absent: Tenderness - Respiratory Exam Respiratory Exam: Clear to Ausculation Bilateral - Cardiovascular Exam Cardiovascular Exam: Tachycardia, REGULAR RHYTHM - GI/Abdominal Exam GI & Abdominal Exam: Distended, Tenderness, Normal Bowel Sounds. absent: Mass, Rebound - Extremities Exam Extremities Exam: absent: Pedal Edema - Neurological Exam Neurological Exam: Alert, Awake. absent: Oriented x3 - Psychiatric Exam Psychiatric exam: absent: Anxious - Skin Skin Exam: absent: Rash Assessment and Plan (1) Depression Status: Acute (2) Anemia Assessment & Plan: Hb- 9 Status: Acute (3) Abdominal pain Assessment & Plan: colitis. c/w c difficile Status: Acute (4) Colitis Assessment & Plan: due to c diff. WBC improving. OnIV flagyl, po vanco. Consider FMT. F/u KUB Status: Acute (5) Sepsis Status: Acute (6) Renal insufficiency Status: Acute (7) CVA (cerebral vascular accident) Status: Ruled-out
--- NOTE | 2018-12-25 12:19 | CP.PCM.PN ---
Subjective - Date & Time of Evaluation Date of Evaluation: 12/25/18 Time of Evaluation: 12:19 - Subjective Subjective: Nephrology Consultation Note: Assessment: critical Acute Kidney Injury (N17.9) likely due to ATN due to sepsis, IV contrast C.Diff colitis, hagma with respi compensation, hyponatremia hypocalcemia Diabetic chronic Kidney Disease (E11.22) Hypertensive Chronic Kidney Disease (I12.9) Chronic Kidney Disease (N18.3) Stage 3 with ? mg proteinuria (R80.9) Anemia (D64.9) hx of dig toxicity, A fib, CVA, hypothyroidism left adrenal nodule Plan No acute need for renal replacement therapy at this time. Hypertension control with meds as ordered. Maintain hemodynamics stable. Avoid hypotension. Patient not on ACEI/ARB due to recent LOUIE Monitor Input/Output, daily weights and renal function with basic metabolic panel agree with bicarb drip 2 gram IV ca today left adrenal nodule work up as outpt Dose meds/antibiotics for reduced GFR. Avoid fleets enema/magnesium based laxatives. Avoid nephrotoxins/NSAIDs/ iodinated contrast (unless needed emergently) Glycemic control Further work up/management as per primary team Thanks for allowing me to participate in care of your patient. Will follow patient with you. Please call if any Qs. had d/w team Dr Raghu Solis Office: [phone] Chief Complaint; pain abdomen Reason for consult: Acute Kidney Injury HPI: Pt is a 73 F with hx of diabetes Mellitus ( years), hypertension (years) CKD 3 with baseline cr 1.2-1.4, hx of dig toxicity, A fib, CVA, hypothyroidism presented with complaints of pain abdomen and being managed for sepsis, colitis, transferred to ICU Denies OTC/herbal meds or NSAIDs Noted recent iodinated contrast exposure. Noted obvious episodes of low BP (99/61). pt not aware about kidney disease in past ROS: overall hx limited from pt Cardiovascular: No chest pain. Pulmonary: No shortness of breath Gastrointestinal: c/o abdominal pain No nausea. No vomiting. Genitourinary: No pain while urinating. Denies blood in urine. All other negative except as mentioned in HPI Physical Examination: General Appearance: uncomfortable, in no acute respiratory distress, co- operative . ill appearing Vitals reviewed and noted as below Head; Atraumatic, normocephalic ENT: no ulcers no thrush. Tongue is midline. Oropharynx: no rash or ulcers. EYES: Pupils are equal, round and reactive to light accommodation. Eye muscles and extraocular movement intact. Sclera is anicteric. Neck; supple no lymphadenopathy, no thyromegaly or bruit Lungs: Normal respiratory rate/effort. Breath sounds bilateral equal and clear Heart: Increased rate. s1s2 normal. No rub or gallop. Extremities: no edema. No varicose veins Neurological: Patient is alert, awake No focal deficit. Strength bilateral appropriate and equal. confused Skin: Warm and dry. Normal turgor. No rash. Palpitation: Normal elasticity for age Abdomen: Abdomen is soft. Bowel sounds +. There is distension and abdominal tenderness, no guarding/rigidity no organomegaly Psych: lack insight and normal affect/mood MSK: no joint tenderness or swelling. Digits and nails normal, no deformity : kidney or bladder not palpable Labs/imaging reviewed. Past medical history, past surgical history, family history, social history, allergy reviewed and noted as below Family hx: no hx of CKD. Rest non-contributory Objective - Vital Signs/Intake and Output Vital Signs (last 24 hours): Temp Pulse Resp BP Pulse Ox 99.4 F 111 H 25 H 113/69 98 12/25/18 04:00 12/25/18 11:00 12/25/18 11:00 12/25/18 10:55 12/25/18 11:00 Intake and Output: 12/25/18 12/25/18 06:59 18:59 Intake Total 1045 495 Output Total 240 445 Balance 805 50 - Medications Medications: Current Medications Acetaminophen (Tylenol 325mg Tab) 650 mg PO Q6 PRN PRN Reason: fever 100.0 Famotidine (Pepcid) 20 mg IVP DAILY [facility] Heparin Sodium (Porcine) (Heparin) 5,000 units SC Q12 [facility] Last Admin: 12/25/18 10:38 Dose: 5,000 units Metronidazole (Flagyl) 500 mg in 100 mls @ 100 mls/hr IVPB Q8H [facility]; Protocol Last Admin: 12/25/18 08:39 Dose: 100 mls/hr Sodium Bicarbonate 150 meq/ (Dextrose) 1,000 mls @ 75 mls/hr IV .[id number] [facility] Last Admin: 12/25/18 02:15 Dose: 75 mls/hr Acetaminophen (Ofirmev) 100 mls @ 100 mls/hr IV Q12 [facility] Stop: 12/27/18 10:01 Last Admin: 12/25/18 10:35 Dose: 100 mls/hr Dextrose/Lactated Ringer's (Dextrose 5%/Lactated Ringer's) 1,000 mls @ 40 mls/hr IV .Q24H [facility] Last Admin: 12/25/18 10:35 Dose: 40 mls/hr Influenza Virus Vaccine (Flucelvax Quad [id number] Syr) 60 mcg IM .ONCE ONE Stop: 12/28/18 11:24 Insulin Human Regular (Novolin R) 0 unit SC [facility]; Protocol Last Admin: 12/25/18 09:49 Dose: Not Given Saccharomyces Boulardii (Florastor) 250 mg PO TID [facility] Last Admin: 12/25/18 10:38 Dose: 250 mg Vancomycin HCl (Vancocin 250mg Capsule) 250 mg PO QID [facility] Last Admin: 12/25/18 10:35 Dose: 250 mg Venlafaxine HCl (Effexor Xr) 150 mg PO DAILY [facility] Last Admin: 12/25/18 10:35 Dose: 150 mg - Labs Labs: 12/25/18 06:23 12/25/18 06:23 PT 22.6 SECONDS (9.7-12.2) H D 12/24/18 14:57 INR 2.1 D 12/24/18 14:57 APTT 33 SECONDS (21-34) 12/24/18 14:57
[2018-12-25] MEDS: Magnesium Sulfate 1 gm in D5W 1 GM/100 ML BAG IVPB SCH (14:05)
--- NOTE | 2018-12-25 15:38 | CP.PCM.CON ---
History of Present Illness - History of Present Illness History of Present Illness: 73F is referred for ID evalkuation for c diff colitis Pt reports that she has been sick for several days with multiple episodes of diarrhea (non bloody). Per nursing, home medications included Amoxicillin- pt was recently in hospital for some other reason. Admits that she is tired with a poor appetite. Denies N & V, F & C, SOB, CP, dysuria, cough, rhinorrhea, sore throat, hematuria, hematochezia, other complaints at this time. PMH: CKD stage 3, HTN, DM, Anemia, Afib, CVA, hypothyroidism, L adrenal nodule, hx Digoxin toxicity, CHF, urinary retention, dementia PSH: R hip surgery All: NKDA SH: Denies ETOH, tobacco, or illicit drug use FH: Non contributory PMD: Christina Review of Systems - Constitutional Constitutional: Weakness. absent: Chills, Headache, Increased Appetite - EENT Ears: absent: Dizziness - Cardiovascular Cardiovascular: absent: Chest Pain - Respiratory Respiratory: absent: Cough - Gastrointestinal Gastrointestinal: Abdominal Pain, Diarrhea. absent: Hematemesis, Hematochezia, Melena, Nausea, Vomiting - Genitourinary Genitourinary: absent: Difficulty Urinating, Dysuria - Musculoskeletal Musculoskeletal: absent: Back Pain - Integumentary Integumentary: absent: Rash - Neurological Neurological: Weakness Past Patient History - Infectious Disease Hx of Infectious Diseases: None - Past Medical History & Family History Past Medical History?: Yes - Past Social History Smoking Status: Never Smoked - CARDIAC Hx Hypercholesterolemia: Yes Hx Hypertension: Yes - PULMONARY Hx Respiratory Disorders: No - NEUROLOGICAL HX Cerebrovascular Accident: Yes - HEENT Hx HEENT Problems: No - RENAL Hx Chronic Kidney Disease: Yes - ENDOCRINE/METABOLIC Hx Diabetes Mellitus Type 2: Yes Hx Hypothyroidism: Yes - HEMATOLOGICAL/ONCOLOGICAL Hx Blood Disorders: No - INTEGUMENTARY Hx Dermatological Problems: No - MUSCULOSKELETAL/RHEUMATOLOGICAL Hx Falls: Yes - GASTROINTESTINAL Hx Gastrointestinal Disorders: No - GENITOURINARY/GYNECOLOGICAL Hx Genitourinary Disorders: No - PSYCHIATRIC Hx Substance Use: No - SURGICAL HISTORY Hx Surgeries: No Other/Comment: HIP REPLACEMENT - DONT KNOW WHICH HIP - ANESTHESIA Hx Anesthesia: Yes Hx Anesthesia Reactions: No Meds Allergies/Adverse Reactions: Allergies Allergy/AdvReac Type Severity Reaction Status Date / Time No Known Allergies Allergy Verified 11/18/18 12:35 - Medications Medications: Current Medications Acetaminophen (Tylenol 325mg Tab) 650 mg PO Q6 PRN PRN Reason: fever 100.0 Famotidine (Pepcid) 20 mg IVP DAILY [facility] Heparin Sodium (Porcine) (Heparin) 5,000 units SC Q12 [facility] Last Admin: 12/25/18 10:38 Dose: 5,000 units Metronidazole (Flagyl) 500 mg in 100 mls @ 100 mls/hr IVPB Q8H [facility]; Protocol Last Admin: 12/25/18 08:39 Dose: 100 mls/hr Sodium Bicarbonate 150 meq/ (Dextrose) 1,000 mls @ 75 mls/hr IV .[id number] [facility] Last Admin: 12/25/18 14:05 Dose: Not Given Acetaminophen (Ofirmev) 100 mls @ 100 mls/hr IV Q12 [facility] Stop: 12/27/18 10:01 Last Admin: 12/25/18 10:35 Dose: 100 mls/hr Dextrose/Lactated Ringer's (Dextrose 5%/Lactated Ringer's) 1,000 mls @ 40 mls/hr IV .Q24H [facility] Last Admin: 12/25/18 10:35 Dose: 40 mls/hr Influenza Virus Vaccine (Flucelvax Quad [id number] Syr) 60 mcg IM .ONCE ONE Stop: 12/28/18 11:24 Insulin Human Regular (Novolin R) 0 unit SC ACHS [facility]; Protocol Last Admin: 12/25/18 14:05 Dose: Not Given Saccharomyces Boulardii (Florastor) 250 mg PO TID [facility] Last Admin: 12/25/18 14:06 Dose: 250 mg Vancomycin HCl (Vancocin 250mg Capsule) 250 mg PO QID [facility] Last Admin: 12/25/18 14:05 Dose: 250 mg Venlafaxine HCl (Effexor Xr) 150 mg PO DAILY [facility] Last Admin: 12/25/18 10:35 Dose: 150 mg Physical Exam - Constitutional Appears: Toxic, No Acute Distress, Chronically Ill - Head Exam Head Exam: ATRAUMATIC, NORMAL INSPECTION, NORMOCEPHALIC - Eye Exam Eye Exam: PERRL. absent: Scleral icterus Pupil Exam: NORMAL ACCOMODATION - ENT Exam ENT Exam: Mucous Membranes Dry, Normal External Ear Exam, Normal Oropharynx - Neck Exam Neck exam: Negative for: Lymphadenopathy - Respiratory Exam Respiratory Exam: Decreased Breath Sounds, Prolonged Expiratory Phase, Rhonchi - Cardiovascular Exam Cardiovascular Exam: Tachycardia, Irregular Rhythm, +S1, +S2 - GI/Abdominal Exam GI & Abdominal Exam: Diminished Bowel Sounds, Soft. absent: Tenderness - Rectal Exam Rectal Exam: Deferred - Exam Exam: NORMAL INSPECTION - Extremities Exam Extremities exam: Positive for: pedal pulses present. Negative for: calf tenderness, pedal edema, tenderness - Back Exam Back exam: absent: CVA tenderness (L), CVA tenderness (R), paraspinal tenderness - Neurological Exam Neurological exam: Alert, CN II-XII Intact, Oriented x3, Reflexes Normal - Psychiatric Exam Psychiatric exam: Depressed - Skin Skin Exam: Dry, Intact Results - Vital Signs Recent Vital Signs: Last Vital Signs Temp 99.4 F 12/25/18 04:00 Pulse 111 H 12/25/18 11:00 Resp 25 H 12/25/18 11:00 BP 113/69 12/25/18 10:55 Pulse Ox 98 12/25/18 11:00 - Labs Result Diagrams: 12/25/18 06:23 12/25/18 06:23 Labs: Laboratory Results - last 24 hr 12/24/18 12/24/18 12/24/18 13:47 14:57 18:11 WBC RBC Hgb Hct MCV MCH MCHC RDW Plt Count MPV Neut % (Auto) Lymph % (Auto) [place] % (Auto) Eos % (Auto) Baso % (Auto) Neut # (Auto) Lymph # (Auto) [place] # (Auto) Eos # (Auto) Baso # (Auto) Neutrophils % (Manual) Band Neutrophils % Lymphocytes % (Manual) Monocytes % (Manual) Eosinophils % (Manual) Toxic Granulation Platelet Estimate Polychromasia Hypochromasia (manual) Anisocytosis (manual) Microcytosis (manual) Macrocytosis (manual) Ovalocytes Sodium Potassium Chloride Carbon Dioxide Anion Gap BUN Creatinine Est GFR ( Amer) Est GFR (Non-Af Amer) Random Glucose Lactic Acid 1.7 Calcium Phosphorus Magnesium Total Bilirubin AST ALT Alkaline Phosphatase Total Protein Albumin Globulin Albumin/Globulin Ratio Urine Color Urine Clarity Urine pH Ur Specific [place] Urine Protein Urine Glucose (UA) Urine Ketones Urine Blood Urine Nitrate Urine Bilirubin Urine Urobilinogen Ur Leukocyte Esterase Urine WBC (Auto) Urine RBC (Auto) Ur Squamous Epith Cells Hyaline Casts Stool Occult Blood Stool Leukocytes, Qual Digoxin 0.9 C. difficile Ag & Toxin Positive H Blood Type Antibody Screen 12/24/18 12/24/18 12/25/18 18:11 22:39 06:23 WBC RBC Hgb Hct MCV MCH MCHC RDW Plt Count MPV Neut % (Auto) Lymph % (Auto) [place] % (Auto) Eos % (Auto) Baso % (Auto) Neut # (Auto) Lymph # (Auto) [place] # (Auto) Eos # (Auto) Baso # (Auto) Neutrophils % (Manual) Band Neutrophils % Lymphocytes % (Manual) Monocytes % (Manual) Eosinophils % (Manual) Toxic Granulation Platelet Estimate Polychromasia Hypochromasia (manual) Anisocytosis (manual) Microcytosis (manual) Macrocytosis (manual) Ovalocytes Sodium Potassium Chloride Carbon Dioxide Anion Gap BUN Creatinine Est GFR ( Amer) Est GFR (Non-Af Amer) Random Glucose Lactic Acid 1.7 Calcium Phosphorus Magnesium Total Bilirubin AST ALT Alkaline Phosphatase Total Protein Albumin Globulin Albumin/Globulin Ratio Urine Color Dacia Urine Clarity Hazy Urine pH 5.0 Ur Specific [place] 1.032 H Urine Protein Negative Urine Glucose (UA) Normal Urine Ketones Trace Urine Blood Negative Urine Nitrate Negative Urine Bilirubin Negative Urine Urobilinogen 2.0 H Ur Leukocyte Esterase Trace Urine WBC (Auto) 8 H Urine RBC (Auto) 3 Ur Squamous Epith Cells 1 Hyaline Casts 6-10 H Stool Occult Blood Stool Leukocytes, Qual Digoxin C. difficile Ag & Toxin Blood Type AB POSITIVE Antibody Screen Negative 12/25/18 12/25/18 12/25/18 06:23 06:23 06:23 WBC 20.5 H RBC 3.79 L Hgb 9.7 L Hct 30.3 L MCV 80.1 L D MCH 25.7 L MCHC 32.1 L RDW 18.0 H Plt Count 459 H MPV 8.9 Neut % (Auto) 91.4 H Lymph % (Auto) 6.1 L [place] % (Auto) 2.0 Eos % (Auto) 0.3 Baso % (Auto) 0.2 Neut # (Auto) 18.7 H Lymph # (Auto) 1.2 [place] # (Auto) 0.4 Eos # (Auto) 0.1 Baso # (Auto) 0.0 Neutrophils % (Manual) 86 H Band Neutrophils % 4 H Lymphocytes % (Manual) 7 L Monocytes % (Manual) 2 Eosinophils % (Manual) 1 Toxic Granulation Present Platelet Estimate Slightly increased H Polychromasia Slight Hypochromasia (manual) Slight Anisocytosis (manual) Slight Microcytosis (manual) Slight Macrocytosis (manual) Slight Ovalocytes Slight Sodium 134 Potassium 4.3 Chloride 103 Carbon Dioxide 19 L Anion Gap 16 BUN 56 H Creatinine 2.9 H Est GFR ( Amer) 19 Est GFR (Non-Af Amer) 16 Random Glucose 105 D Lactic Acid 1.6 Calcium 6.6 L Phosphorus 3.5 Magnesium 1.6 Total Bilirubin 1.4 H AST 31 ALT 14 Alkaline Phosphatase 78 Total Protein 6.3 Albumin 3.2 L Globulin 3.0 Albumin/Globulin Ratio 1.1 Urine Color Urine Clarity Urine pH Ur Specific [place] Urine Protein Urine Glucose (UA) Urine Ketones Urine Blood Urine Nitrate Urine Bilirubin Urine Urobilinogen Ur Leukocyte Esterase Urine WBC (Auto) Urine RBC (Auto) Ur Squamous Epith Cells Hyaline Casts Stool Occult Blood Stool Leukocytes, Qual Digoxin C. difficile Ag & Toxin Blood Type Antibody Screen 12/25/18 12/25/18 09:22 09:26 WBC RBC Hgb Hct MCV MCH MCHC RDW Plt Count MPV Neut % (Auto) Lymph % (Auto) [place] % (Auto) Eos % (Auto) Baso % (Auto) Neut # (Auto) Lymph # (Auto) [place] # (Auto) Eos # (Auto) Baso # (Auto) Neutrophils % (Manual) Band Neutrophils % Lymphocytes % (Manual) Monocytes % (Manual) Eosinophils % (Manual) Toxic Granulation Platelet Estimate Polychromasia Hypochromasia (manual) Anisocytosis (manual) Microcytosis (manual) Macrocytosis (manual) Ovalocytes Sodium Potassium Chloride Carbon Dioxide Anion Gap BUN Creatinine Est GFR ( Amer) Est GFR (Non-Af Amer) Random Glucose Lactic Acid Calcium Phosphorus Magnesium Total Bilirubin AST ALT Alkaline Phosphatase Total Protein Albumin Globulin Albumin/Globulin Ratio Urine Color Urine Clarity Urine pH Ur Specific [place] Urine Protein Urine Glucose (UA) Urine Ketones Urine Blood Urine Nitrate Urine Bilirubin Urine Urobilinogen Ur Leukocyte Esterase Urine WBC (Auto) Urine RBC (Auto) Ur Squamous Epith Cells Hyaline Casts Stool Occult Blood Positive H Stool Leukocytes, Qual Positive H Digoxin C. difficile Ag & Toxin Blood Type Antibody Screen Assessment & Plan (1) Abdominal pain Status: Acute (2) Colitis Status: Acute Priority: Low (3) Sepsis Status: Acute (4) Depressed Status: Acute (5) Renal insufficiency Status: Acute (6) Change in mental status Status: Chronic (7) Dementia Status: Chronic (8) LOUIE (acute kidney injury) Status: Resolved Priority: High (9) Atrial fibrillation with RVR Status: Resolved (10) Congestive cardiac failure Status: Resolved (11) Renal insufficiency Status: Resolved (12) CVA (cerebral vascular accident) Status: Ruled-out (13) Seizures Status: Ruled-out - Assessment and Plan (Free Text) Assessment: improving on IV Flagyl and PO Vanco cont cautious hydration
--- NOTE | 2018-12-25 18:27 | PN ---
DATE: 12/25/2018 SUBJECTIVE: The patient still experiencing abdominal discomfort. She denies any substernal chest pain. No reported hypotension. PHYSICAL EXAMINATION: VITAL SIGNS: Blood pressure 116/69, heart rate 115, temperature 99.4, and respiration 20. HEENT: Pale conjunctivae. CHEST: Clear. HEART: S1 and S2 regular. ABDOMEN: Diffusely tender. EXTREMITIES: No edema. LABORATORY DATA: Today's BUN and creatinine are 56 and 2.9. Calcium is below normal at 6.6. Magnesium below normal at 1.4. Stool occult blood is positive. Clostridium difficile antigen and toxins are positive. Today's hemoglobin and hematocrit are 9.7 and 30.3. White count 20.5, platelet count 459,000. Blood culture is negative after 48 hours. ASSESSMENT: 1. Clostridium difficile colitis. 2. Sinus tachycardia related the patient's underlying colitis and ongoing diarrhea and dehydration. 3. Chronic renal insufficiency. 4. Mild aortic insufficiency. 5. History of depression. 6. Anemia. 7. Hypomagnesemia and hypocalcemia. RECOMMENDATIONS: Continue current IV Flagyl, subcutaneous heparin and oral vancomycin. Start intravenous magnesium sulfate replacement. Sukhdev Dave MD
--- NOTE | 2018-12-26 06:22 | HP ---
HISTORY OF PRESENT ILLNESS: This is a 73-year-old female admitted to the hospital with chief complaints of abdominal pain and diarrhea. The patient came to ER, advised admission. The patient has fever of 101. Denies hemoptysis, hematemesis, melena. PHYSICAL EXAMINATION: GENERAL: The patient is awake and oriented. VITAL SIGNS: Temperature 101, pulse is 90. HEENT: Within normal limits. NECK: Supple. CHEST: Symmetrical. ABDOMEN: Distended. EXTREMITIES: No edema. IMPRESSION AND PLAN: The patient suffers from gastroenteritis, colitis, sepsis, given IV antibiotics. Infectious disease consult and gastroenterology consult. Jed Rivera MD
[2018-12-26 06:29] LABS: BASO % 0.2 % (0.0-2.0); HEMOGLOBIN 9.8 g/dL (11.0-16.0); LYMPH # 1.2 K/uL (1.0-4.3); LYMPH % 6.2 % (20.0-40.0); MEAN CELL VOLUME 79.7 fL (81.0-99.0); MEAN CORPUSCULAR HEMOGLOBIN 25.5 pg (27.0-31.0); MEAN PLATELET VOLUME 8.8 fL (7.2-11.7); MONO # 0.5 K/uL (0.0-0.8); MONO % 2.4 % (0.0-10.0); NEUT # 17.1 K/uL (1.8-7.0); NEUT % 91.2 % (50.0-75.0); PLATELET COUNT 429 K/uL (130-400); RBC 3.83 Mil/uL (3.80-5.20); RED CELL DISTRIBUTION WIDTH 17.7 % (11.5-14.5); WHITE BLOOD COUNT 18.8 K/uL (4.8-10.8)
[2018-12-26 06:38] LABS: CALCIUM 6.1 mg/dl (8.6-10.4)
--- NOTE | 2018-12-26 07:05 | CP.CCUPN ---
CCU Subjective - Physician Review Subjective (Free Text): Critical care progress note for Dr. Arguello. Patient seen and examined at bedside. No acute events overnight. Patient had 3 episodes of non-bloody diarrhea overnight. Patient offers not complaints, states she feels much better. Patient denies headaches, vision changes, chest pain, SOB, nausea, vomiting, fevers, chills. CCU Objective - Vital Signs / Intake & Output Intake and Output (Last 8hrs): Intake & Output 12/25/18 12/26/18 12/26/18 22:59 06:59 14:59 Intake Total 510 Output Total 55 Balance 455 Intake: Intake, IV Amount 460 Right Hand 300 Right Wrist 160 Oral 50 Output: Urine 55 Urethral (Vazquez) 55 Other: # Bowel Movements 1 - Physical Exam Physical Exam Limitations: Negative for: Altered Mental Status Head: Positive for: Atraumatic, Normocephalic Extroacular Muscles: Positive for: EOMI Conjunctiva: Positive for: Normal Mouth: Positive for: Moist Mucous Membranes Respiratory/Chest: Negative for: Clear to Auscultation, Accessory Muscle Use Abdomen: Positive for: Tenderness (distended, abdominal tenderness through all quads ), Distention, Normal Bowel Sounds Upper Extremity: Positive for: Normal Inspection. Negative for: Edema Lower Extremity: Positive for: Normal Inspection. Negative for: Edema Skin: Positive for: Warm, Dry, Rashes Psychiatric: Positive for: Oriented x 3 - Medications Active Medications: Active Medications Generic Name Dose Route Start Last Admin Trade Name Freq PRN Reason Stop Dose Admin Acetaminophen 650 mg 12/24/18 02:09 Tylenol 325mg Tab PO Q6 PRN fever 100.0 Famotidine 20 mg 12/26/18 10:00 Pepcid IVP DAILY [facility] Heparin Sodium (Porcine) 5,000 units 12/24/18 10:00 12/25/18 22:42 Heparin SC 5,000 units Q12 [facility] Administration Metronidazole 500 mg in 100 mls @ 100 mls/hr 12/23/18 16:00 12/25/18 23:43 Flagyl IVPB 100 mls/hr Q8H [facility] Administration Protocol Sodium Bicarbonate 150 meq/ 1,000 mls @ 75 mls/hr 12/24/18 10:15 12/25/18 14:05 Dextrose IV Not Given .[id number] [facility] Acetaminophen 100 mls @ 100 mls/hr 12/25/18 10:00 12/25/18 22:00 Ofirmev IV 12/27/18 10:01 Not Given Q12 [facility] Dextrose/Lactated Ringer's 1,000 mls @ 40 mls/hr 12/25/18 09:45 12/25/18 10:35 Dextrose 5%/Lactated Ringer's IV 40 mls/hr .Q24H [facility] Administration Influenza Virus Vaccine 60 mcg 12/28/18 11:23 Flucelvax Quad [id number] Syr IM 12/28/18 11:24 .ONCE ONE Insulin Human Regular 0 unit 12/23/18 16:30 12/25/18 22:00 Novolin R SC Not Given ACHS [facility] Protocol Saccharomyces Boulardii 250 mg 12/25/18 10:00 12/25/18 17:45 Florastor PO 250 mg TID [facility] Administration Vancomycin HCl 250 mg 12/24/18 10:15 12/25/18 22:43 Vancocin 250mg Capsule PO 250 mg QID [facility] Administration Venlafaxine HCl 150 mg 12/24/18 10:00 12/25/18 10:35 Effexor Xr PO 150 mg DAILY [facility] Administration - Patient Studies Lab Studies: Microbiology Studies 12/22/18 19:45 Blood Culture - Preliminary Blood NO GROWTH AFTER 3 DAYS 12/22/18 19:10 Blood Culture - Preliminary Blood NO GROWTH AFTER 3 DAYS 12/24/18 13:47 MRSA Culture (Admit) - Final Nose MRSA NOT DETECTED 12/24/18 10:29 Urine Culture - Final Urine,Catheterized No Growth (<1,000 CFU/ML) 12/24/18 09:57 Blood Culture - Preliminary Blood NO GROWTH AFTER 24 HOURS 12/24/18 09:57 Blood Culture - Preliminary Blood NO GROWTH AFTER 24 HOURS Lab Studies 12/26/18 12/26/18 12/25/18 Range/Units 06:20 06:20 16:17 WBC 18.8 H (4.8-10.8) K/uL RBC 3.83 (3.80-5.20) Mil/uL Hgb 9.8 L (11.0-16.0) g/dL Hct 30.5 L (34.0-47.0) % MCV 79.7 L (81.0-99.0) fL MCH 25.5 L (27.0-31.0) pg MCHC 32.0 L (33.0-37.0) g/dL RDW 17.7 H (11.5-14.5) % Plt Count 429 H (130-400) K/uL MPV 8.8 (7.2-11.7) fL Neut % (Auto) 91.2 H (50.0-75.0) % Lymph % (Auto) 6.2 L (20.0-40.0) % [place]ansom % (Auto) 2.4 (0.0-10.0) % Eos % (Auto) 0.0 (0.0-4.0) % Baso % (Auto) 0.2 (0.0-2.0) % Neut # (Auto) 17.1 H (1.8-7.0) K/uL Lymph # (Auto) 1.2 (1.0-4.3) K/uL Ransom # (Auto) 0.5 (0.0-0.8) K/uL Eos # (Auto) 0.0 (0.0-0.7) K/uL Baso # (Auto) 0.0 (0.0-0.2) K/uL Neutrophils % (Manual) (50-75) % Band Neutrophils % (0-2) % Lymphocytes % (Manual) (20-40) % Monocytes % (Manual) (0-10) % Eosinophils % (Manual) (0-4) % Toxic Granulation Platelet Estimate (NORMAL) Polychromasia Hypochromasia (manual) Anisocytosis (manual) Microcytosis (manual) Macrocytosis (manual) Ovalocytes Sodium 133 (132-148) mmol/L Potassium 3.7 (3.6-5.2) mmol/L Chloride 96 L (98-107) mmol/L Carbon Dioxide 24 (22-30) mmol/L Anion Gap 16 (10-20) BUN 53 H (7-17) mg/dL Creatinine 2.2 H (0.7-1.2) mg/dL Est GFR ( Amer) 26 Est GFR (Non-Af Amer) 22 POC Glucose (mg/dL) 193 H (65-110) mg/dL Random Glucose 170 H D (65-105) mg/dL Calcium 6.1 L (8.6-10.4) mg/dl Stool Occult Blood (NEGATIVE) Stool Leukocytes, Qual (NEGATIVE) 12/25/18 12/25/18 12/25/18 Range/Units 09:26 09:22 06:23 WBC (4.8-10.8) K/uL RBC (3.80-5.20) Mil/uL Hgb (11.0-16.0) g/dL Hct (34.0-47.0) % MCV (81.0-99.0) fL MCH (27.0-31.0) pg MCHC (33.0-37.0) g/dL RDW (11.5-14.5) % Plt Count (130-400) K/uL MPV (7.2-11.7) fL Neut % (Auto) (50.0-75.0) % Lymph % (Auto) (20.0-40.0) % [place] % (Auto) (0.0-10.0) % Eos % (Auto) (0.0-4.0) % Baso % (Auto) (0.0-2.0) % Neut # (Auto) (1.8-7.0) K/uL Lymph # (Auto) (1.0-4.3) K/uL Ransom # (Auto) (0.0-0.8) K/uL Eos # (Auto) (0.0-0.7) K/uL Baso # (Auto) (0.0-0.2) K/uL Neutrophils % (Manual) 86 H (50-75) % Band Neutrophils % 4 H (0-2) % Lymphocytes % (Manual) 7 L (20-40) % Monocytes % (Manual) 2 (0-10) % Eosinophils % (Manual) 1 (0-4) % Toxic Granulation Present Platelet Estimate Slightly increased H (NORMAL) Polychromasia Slight Hypochromasia (manual) Slight Anisocytosis (manual) Slight Microcytosis (manual) Slight Macrocytosis (manual) Slight Ovalocytes Slight Sodium (132-148) mmol/L Potassium (3.6-5.2) mmol/L Chloride (98-107) mmol/L Carbon Dioxide (22-30) mmol/L Anion Gap (10-20) BUN (7-17) mg/dL Creatinine (0.7-1.2) mg/dL Est GFR ( Amer) Est GFR (Non-Af Amer) POC Glucose (mg/dL) (65-110) mg/dL Random Glucose (65-105) mg/dL Calcium (8.6-10.4) mg/dl Stool Occult Blood Positive H (NEGATIVE) Stool Leukocytes, Qual Positive H (NEGATIVE) Laboratory Results - last 24 hr 12/25/18 12/25/18 12/25/18 06:23 09:22 09:26 WBC RBC Hgb Hct MCV MCH MCHC RDW Plt Count MPV Neut % (Auto) Lymph % (Auto) [place] % (Auto) Eos % (Auto) Baso % (Auto) Neut # (Auto) Lymph # (Auto) [place] # (Auto) Eos # (Auto) Baso # (Auto) Neutrophils % (Manual) 86 H Band Neutrophils % 4 H Lymphocytes % (Manual) 7 L Monocytes % (Manual) 2 Eosinophils % (Manual) 1 Toxic Granulation Present Platelet Estimate Slightly increased H Polychromasia Slight Hypochromasia (manual) Slight Anisocytosis (manual) Slight Microcytosis (manual) Slight Macrocytosis (manual) Slight Ovalocytes Slight Sodium Potassium Chloride Carbon Dioxide Anion Gap BUN Creatinine Est GFR ( Amer) Est GFR (Non-Af Amer) POC Glucose (mg/dL) Random Glucose Calcium Stool Occult Blood Positive H Stool Leukocytes, Qual Positive H 12/25/18 12/26/18 12/26/18 16:17 06:20 06:20 WBC 18.8 H RBC 3.83 Hgb 9.8 L Hct 30.5 L MCV 79.7 L MCH 25.5 L MCHC 32.0 L RDW 17.7 H Plt Count 429 H MPV 8.8 Neut % (Auto) 91.2 H Lymph % (Auto) 6.2 L [place] % (Auto) 2.4 Eos % (Auto) 0.0 Baso % (Auto) 0.2 Neut # (Auto) 17.1 H Lymph # (Auto) 1.2 Ransom # (Auto) 0.5 Eos # (Auto) 0.0 Baso # (Auto) 0.0 Neutrophils % (Manual) Band Neutrophils % Lymphocytes % (Manual) Monocytes % (Manual) Eosinophils % (Manual) Toxic Granulation Platelet Estimate Polychromasia Hypochromasia (manual) Anisocytosis (manual) Microcytosis (manual) Macrocytosis (manual) Ovalocytes Sodium 133 Potassium 3.7 Chloride 96 L Carbon Dioxide 24 Anion Gap 16 BUN 53 H Creatinine 2.2 H Est GFR ( Amer) 26 Est GFR (Non-Af Amer) 22 POC Glucose (mg/dL) 193 H Random Glucose 170 H D Calcium 6.1 L Stool Occult Blood Stool Leukocytes, Qual Fingerstick Blood Sugar Results: 200 Review of Systems - Constitutional Constitutional: absent: Fever, Chills, Sweats, Weakness - EENT Eyes: UNREMARKABLE. absent: Blurred Vision, Change in Vision Ears: UNREMARKABLE Nose/Mouth/Throat: UNREMARKABLE. absent: Nose Pain - Cardiovascular Cardiovascular: UNREMARKABLE. absent: Chest Pain, Chest Pain at Rest, Dyspnea - Respiratory Respiratory: absent: Dyspnea, Dyspnea on Exertion - Gastrointestinal Gastrointestinal: Abdominal Pain, Diarrhea, UNREMARKABLE - Genitourinary Genitourinary: UNREMARKABLE - Musculoskeletal Musculoskeletal: UNREMARKABLE. absent: Abnormal Gait, Arthralgias, Joint Swelling - Integumentary Integumentary: UNREMARKABLE. absent: Acne, Alopecia - Neurological Neurological: UNREMARKABLE. absent: Behavioral Changes, Headaches - Endocrine Endocrine: UNREMARKABLE Critical Care Progress Note - Prophylaxis GI Prophylaxis GI: Pepsid - Prophylaxis DVT Prophylaxis DVT: Heparin SQ - Nutrition Nutrition: Nutrition Category Date Time Status NPO Diet [DIET] Diets 12/24/18 Breakfast Active Assessment/Plan - Assessment and Plan (Free Text) Assessment: 73 F w/ PMhx CHF, CKD, Afib presented to hospital elevated digoxin level, low hemoglobin, transferred to ICU for sepsis, elevated leukocytosis, and distended abdomen. Patient is C. diff positive, on contact isolation ( was previously on kaflex for dental infection & ceftriaxone). Patient is improving, with WBC downtrending, afebrile > 24H, H/H stable. Patient has improving acute w/ chronic renal failure Patient is more awake, responsive, stable for transfer for telemetry. 1) Colitis secondary to C. diff 2) Acute anemia 3) Sepsis 4) Acute on chronic renal failure 5) afib Plan: Neuro - A&O x 3 Cardio - vitals WNL - hx of afib, chx - continue to monitor, stable Pulm - vitals WNL - continue to monitor GI - colitis - C. diff positive - flagyl & vancomyicin ( see below) - vazquez in place Heme - H/H stable; s/p transfusion - WBC downtrending, now to 18 - afebrile >48 Hr, Lactate wnl - U/C negative, Blood cultures negative - C. diff positive - c/w vancomyocin 250mg PO QID, flagyl 500 mg IVPB Q8H - Florastor TID Endo - BS 150s - ISS - hypoglycemia protocol Renal - Elevated BUN/Cr 53/2.2 (improving) - Acute on chronic renal failure - D5 LR 75 cc/hr PPx - DVT: Heparin 5000 units Q12 - GI: Pepcid 20mg IVP daily
[2018-12-26] MEDS ORDERED: Acetaminophen IV 1,000 MG in Premixed IV 1 EA IV PRN ×2 (07:57→10:00)
[2018-12-26] MEDS: (Novolin R) Insulin Human Regular 100 units/ml vial SC SCH ×4 (08:02→22:00)
--- NOTE | 2018-12-26 08:13 | CP.PCM.PN ---
<Hero Argueta - Last Filed: 12/26/18 08:14> Subjective - Date & Time of Evaluation Date of Evaluation: 12/26/18 Time of Evaluation: 08:11 - Subjective Subjective: Surgery Progress note- Dr. Waters Patient seen and examined at bedside. continues to have abdominal pain, distended and is tender to palpation; unchanged since previously. afebrile Objective - Vital Signs/Intake and Output Vital Signs (last 24 hours): Temp Pulse Resp BP Pulse Ox 99.2 F 111 H 27 H 114/69 100 12/25/18 18:00 12/26/18 07:00 12/26/18 07:00 12/26/18 06:55 12/26/18 07:00 - Medications Medications: Current Medications Famotidine (Pepcid) 20 mg IVP DAILY [facility] Heparin Sodium (Porcine) (Heparin) 5,000 units SC Q12 [facility] Last Admin: 12/25/18 22:42 Dose: 5,000 units Metronidazole (Flagyl) 500 mg in 100 mls @ 100 mls/hr IVPB Q8H [facility]; Protocol Last Admin: 12/25/18 23:43 Dose: 100 mls/hr Sodium Bicarbonate 150 meq/ (Dextrose) 1,000 mls @ 75 mls/hr IV .[id number] [facility] Last Admin: 12/25/18 14:05 Dose: Not Given Dextrose/Lactated Ringer's (Dextrose 5%/Lactated Ringer's) 1,000 mls @ 40 mls/hr IV .Q24H [facility] Last Admin: 12/25/18 10:35 Dose: 40 mls/hr Acetaminophen 1,000 mg/ (Miscellaneous) 100 mls @ 400 mls/hr IV Q12 PRN PRN Reason: Pain, severe (8-10) Stop: 12/27/18 10:01 Influenza Virus Vaccine (Flucelvax Quad 3433-8114 Syr) 60 mcg IM .ONCE ONE Stop: 12/28/18 11:24 Insulin Human Regular (Novolin R) 0 unit SC ACHS [facility]; Protocol Last Admin: 12/25/18 22:00 Dose: Not Given Saccharomyces Boulardii (Florastor) 250 mg PO TID [facility] Last Admin: 12/25/18 17:45 Dose: 250 mg Vancomycin HCl (Vancocin 250mg Capsule) 250 mg PO QID [facility] Last Admin: 12/25/18 22:43 Dose: 250 mg Venlafaxine HCl (Effexor Xr) 150 mg PO DAILY [facility] Last Admin: 12/25/18 10:35 Dose: 150 mg - Labs Labs: 12/26/18 06:20 12/26/18 06:20 PT 22.6 SECONDS (9.7-12.2) H D 12/24/18 14:57 INR 2.1 D 12/24/18 14:57 APTT 33 SECONDS (21-34) 12/24/18 14:57 - Constitutional Appears: No Acute Distress - Head Exam Head Exam: ATRAUMATIC - Eye Exam Eye Exam: EOMI. absent: Scleral icterus - ENT Exam ENT Exam: Mucous Membranes Moist - Cardiovascular Exam Cardiovascular Exam: Tachycardia, REGULAR RHYTHM. absent: Bradycardia - GI/Abdominal Exam GI & Abdominal Exam: Distended, Soft, Tenderness, Rebound (abd soft, + rebound tenderness, + distenditon). absent: Firm, Guarding, Rigid - Extremities Exam Extremities Exam: absent: Calf Tenderness - Neurological Exam Neurological Exam: Alert, Awake - Psychiatric Exam Psychiatric exam: Normal Affect - Skin Skin Exam: Intact, Warm Assessment and Plan - Assessment and Plan (Free Text) Assessment: 73F w/ C.Diff colitis Plan: - pain control PRN; recommend rectal analgesia - IVF/Abx - abx for C.Diff - incentive spirometer use - serial abd exams - f/u AM labs - replete lyts PRN - will continue to monitor closely - if acute changes plan, may plan for surgical intervention - management per critical care team - further recs per Dr. Waters surgical attending [facility] PGY2 <Bienvenido Waters - Last Filed: 01/01/19 20:35> Objective - Vital Signs/Intake and Output Vital Signs (last 24 hours): Temp Pulse Resp BP Pulse Ox 98.0 F 90 20 120/82 98 01/01/19 16:00 01/01/19 16:00 01/01/19 16:00 01/01/19 16:00 01/01/19 16:00 Intake and Output: 01/01/19 01/02/19 18:59 06:59 Intake Total 300 Output Total 400 Balance -100 - Medications Medications: Current Medications Apixaban (Eliquis) 2.5 mg PO Q12 [facility] Last Admin: 01/01/19 08:59 Dose: 2.5 mg Aspirin (Ecotrin) 81 mg PO DAILY [facility] Last Admin: 01/01/19 08:59 Dose: 81 mg Famotidine (Pepcid) 20 mg PO DAILY [facility] Last Admin: 01/01/19 08:59 Dose: 20 mg Insulin Human Regular (Novolin R) 0 unit SC ACHS [facility]; Protocol Last Admin: 01/01/19 17:30 Dose: 1 units Metoprolol Succinate (Toprol Xl) 25 mg PO QPM [facility] Last Admin: 01/01/19 18:31 Dose: 25 mg Metronidazole (Flagyl) 500 mg PO Q8 [facility] Last Admin: 01/01/19 14:00 Dose: 500 mg Mirtazapine (Remeron) 30 mg PO HS [facility] Last Admin: 12/31/18 22:04 Dose: 30 mg Vancomycin HCl (Vancocin 250mg Capsule) 250 mg PO QID [facility] Last Admin: 01/01/19 18:31 Dose: 250 mg Venlafaxine HCl (Effexor) 150 mg PO DAILY [facility] Last Admin: 12/28/18 09:30 Dose: 150 mg - Labs Labs: 01/01/19 06:23 01/01/19 06:24 PT 22.6 SECONDS (9.7-12.2) H D 12/24/18 14:57 INR 2.1 D 12/24/18 14:57 APTT 33 SECONDS (21-34) 12/24/18 14:57 Attending/Attestation - Attestation I have personally seen and examined this patient.: Yes I have fully participated in the care of the patient.: Yes I have reviewed all pertinent clinical information, including history, physical exam and plan: Yes Notes (Text): Pt was seen and examine at bedside Agree with above note and assessment Pt is improving clinically Abdomen : mild distended C.w current mx IV antibiotics DVT prophylaxis Plan d.w pt in detail
[2018-12-26] MEDS: metroNIDAZOLE IV 500 mg/100 ml 500 MG/100 ML BAG IVPB SCH ×2 (08:15→16:00)
[2018-12-26 09:00] LABS: BANDS 8 % (0-2); LYMPHOCYTE 7 % (20-40); MONOCYTE 2 % (0-10); NEUTROPHIL 83 % (50-75); TOTAL CELLS COUNTED 100
[2018-12-26 09:01] LABS: ANISOCYTOSIS SLIGHT; PLATELET ESTIMATE SLIGHTLY INCREASED (NORMAL)
[2018-12-26 09:02] LABS: LARGE PLATELETS PRESENT; OVALOCYTES SLIGHT
[2018-12-26] MEDS ORDERED: Lactated Ringer's 1,000 ML IV SCH ×2 (09:45)
[2018-12-26] MEDS: Venlafaxine 150 mg ER Cap PO SCH (09:58)
[2018-12-26] MEDS: Saccharomyces Boulardi 250 mg Cap PO SCH (09:59)
[2018-12-26] MEDS ORDERED: Acetaminophen IV 1,000 MG in Premixed IV 1 EA IV SCH (10:00)
[2018-12-26] MEDS: Vancomycin Hydrochloride 250 mg Capsule (Oral) PO SCH ×4 (10:00→21:56)
[2018-12-26] MEDS ORDERED: Dextrose 5%/Lactated Ringer's 1,000 ML IV SCH (10:30)
[2018-12-26 14:42] LABS: SOURCE STOOL
--- NOTE | 2018-12-26 16:02 | CP.PCM.PN ---
Subjective - Date & Time of Evaluation Date of Evaluation: 12/26/18 Time of Evaluation: 15:59 - Subjective Subjective: In ICU- Less abdominal pain/diarrhea. Remains distended WBC improving. Not acidotic. Plaoin film without megacolon Continue Vancomycin PO Objective - Vital Signs/Intake and Output Vital Signs (last 24 hours): Temp Pulse Resp BP Pulse Ox 98.7 F 110 H 30 H 111/71 96 12/26/18 04:00 12/26/18 15:00 12/26/18 15:00 12/26/18 12:55 12/26/18 13:00 Intake and Output: 12/26/18 12/26/18 06:59 18:59 Intake Total 1720 395 Output Total 225 40 Balance 1495 355 - Medications Medications: Current Medications Famotidine (Pepcid) 20 mg IVP DAILY [facility] Last Admin: 12/26/18 09:59 Dose: 20 mg Heparin Sodium (Porcine) (Heparin) 5,000 units SC Q12 [facility] Last Admin: 12/26/18 09:59 Dose: 5,000 units Metronidazole (Flagyl) 500 mg in 100 mls @ 100 mls/hr IVPB Q8H [facility]; Protocol Last Admin: 12/26/18 08:15 Dose: 100 mls/hr Acetaminophen 1,000 mg/ (Miscellaneous) 100 mls @ 400 mls/hr IV Q12 PRN PRN Reason: Pain, severe (8-10) Stop: 12/27/18 10:01 Dextrose/Lactated Ringer's (Dextrose 5%/Lactated Ringer's) 1,000 mls @ 75 mls/hr IV .[id number] [facility] Influenza Virus Vaccine (Flucelvax Quad 7470-5911 Syr) 60 mcg IM .ONCE ONE Stop: 12/28/18 11:24 Insulin Human Regular (Novolin R) 0 unit SC ACHS [facility]; Protocol Last Admin: 12/26/18 08:02 Dose: 2 units Saccharomyces Boulardii (Florastor) 250 mg PO TID [facility] Last Admin: 12/26/18 09:59 Dose: 250 mg Vancomycin HCl (Vancocin 250mg Capsule) 250 mg PO QID [facility] Last Admin: 12/26/18 10:00 Dose: 250 mg Venlafaxine HCl (Effexor Xr) 150 mg PO DAILY [facility] - Labs Labs: 12/26/18 06:20 12/26/18 06:20 PT 22.6 SECONDS (9.7-12.2) H D 12/24/18 14:57 INR 2.1 D 12/24/18 14:57 APTT 33 SECONDS (21-34) 12/24/18 14:57 - Constitutional Appears: Chronically Ill - Respiratory Exam Respiratory Exam: Clear to Ausculation Bilateral - Cardiovascular Exam Cardiovascular Exam: REGULAR RHYTHM - GI/Abdominal Exam GI & Abdominal Exam: Distended, Soft, Tenderness, Normal Bowel Sounds. absent: Guarding, Rigid, Rebound Assessment and Plan (1) Clostridium difficile colitis Assessment & Plan: Managed with Vancomycin 250 mg QID, clinically improving Would stop Florastor Monitor clinically Status: Acute
--- NOTE | 2018-12-26 17:09 | CP.PCM.PN ---
Subjective - Date & Time of Evaluation Date of Evaluation: 12/26/18 Time of Evaluation: 17:06 - Subjective Subjective: pt has diarhea all the time less abd pain has c def on treatment Objective - Vital Signs/Intake and Output Vital Signs (last 24 hours): Temp Pulse Resp BP Pulse Ox 98.7 F 110 H 30 H 111/71 96 12/26/18 04:00 12/26/18 15:00 12/26/18 15:00 12/26/18 12:55 12/26/18 13:00 Intake and Output: 12/26/18 12/26/18 06:59 18:59 Intake Total 1720 395 Output Total 225 40 Balance 1495 355 - Medications Medications: Current Medications Famotidine (Pepcid) 20 mg IVP DAILY [facility] Last Admin: 12/26/18 09:59 Dose: 20 mg Heparin Sodium (Porcine) (Heparin) 5,000 units SC Q12 [facility] Last Admin: 12/26/18 09:59 Dose: 5,000 units Metronidazole (Flagyl) 500 mg in 100 mls @ 100 mls/hr IVPB Q8H [facility]; Protocol Last Admin: 12/26/18 08:15 Dose: 100 mls/hr Acetaminophen 1,000 mg/ (Miscellaneous) 100 mls @ 400 mls/hr IV Q12 PRN PRN Reason: Pain, severe (8-10) Stop: 12/27/18 10:01 Dextrose/Lactated Ringer's (Dextrose 5%/Lactated Ringer's) 1,000 mls @ 75 mls/hr IV .[id number] [facility] Influenza Virus Vaccine (Flucelvax Quad 5094-3205 Syr) 60 mcg IM .ONCE ONE Stop: 12/28/18 11:24 Insulin Human Regular (Novolin R) 0 unit SC ACHS [facility]; Protocol Last Admin: 12/26/18 08:02 Dose: 2 units Vancomycin HCl (Vancocin 250mg Capsule) 250 mg PO QID [facility] Last Admin: 12/26/18 10:00 Dose: 250 mg Venlafaxine HCl (Effexor Xr) 150 mg PO DAILY [facility] - Labs Labs: 12/26/18 06:20 12/26/18 06:20 PT 22.6 SECONDS (9.7-12.2) H D 12/24/18 14:57 INR 2.1 D 12/24/18 14:57 APTT 33 SECONDS (21-34) 12/24/18 14:57 - Constitutional Appears: Non-toxic - Head Exam Head Exam: NORMAL INSPECTION - Eye Exam Eye Exam: Normal appearance - ENT Exam ENT Exam: Mucous Membranes Moist - Neck Exam Neck Exam: Normal Inspection - Respiratory Exam Respiratory Exam: Clear to Ausculation Bilateral - Cardiovascular Exam Cardiovascular Exam: REGULAR RHYTHM - GI/Abdominal Exam GI & Abdominal Exam: Distended, Tenderness - Extremities Exam Extremities Exam: Full ROM - Back Exam Back Exam: NORMAL INSPECTION - Neurological Exam Neurological Exam: Awake, Oriented x3 - Psychiatric Exam Psychiatric exam: Normal Mood - Skin Skin Exam: Pallor Assessment and Plan - Assessment and Plan (Free Text) Assessment: ac diarhea c def infection aneamia dm Plan: cont as ordered
--- NOTE | 2018-12-26 17:56 | RAD ---
Date of service: 12/26/2018 HISTORY: Abdominal pain COMPARISON: Abdominal radiographs performed 12/24/18 FINDINGS: BOWEL: Nonspecific bowel gas pattern. BONES: Partially imaged left hip arthroplasty and intramedullary jennifer and screw fixation of the right femur. Osseous demineralization. OTHER FINDINGS: Pelvic calcifications, likely phleboliths. IMPRESSION: Nonspecific bowel gas pattern.
--- NOTE | 2018-12-26 18:19 | PN ---
DATE: 12/26/2018 SUBJECTIVE: The patient's abdominal pain has improved. She denies any vomiting or retrosternal chest pain. She is still in sinus tachycardia on the monitor. PHYSICAL EXAMINATION: VITAL SIGNS: Blood pressure 114/69, heart rate 111, respirations 27, temperature 98.7. HEENT: Pale conjunctivae. CHEST: Clear. HEART: S1 and S2 regular. ABDOMEN: Slightly distended. EXTREMITIES: No pedal edema. LABORATORY DATA: Today's hemoglobin and hematocrit are 9.8 and 30.5, white count is 18.8, platelet count is 429,000. Today's SMA-7 shows sodium 136, potassium 3.7, chloride 96, CO2 of 24, glucose 117, BUN 53, creatinine 2.2. Abdominal x-ray was performed today. The report is still pending. ASSESSMENT: 1. Clostridium difficile colitis. 2. Sinus tachycardia related to underlying colitis and dehydration. 3. Chronic renal insufficiency. 4. Mild aortic aneurysm. 5. History of depression. 6. Anemia. 7. Hypomagnesemia. RECOMMENDATIONS: Continue current Flagyl 500 mg intravenously every 8 hours, subcutaneous heparin 5000 units every 12 hours. Continue vancomycin 250 mg b.i.d., obtain magnesium levels today. Sukhdev Dave MD
--- NOTE | 2018-12-26 18:22 | CP.PCM.PN ---
Subjective - Date & Time of Evaluation Date of Evaluation: 12/26/18 Time of Evaluation: 09:00 - Subjective Subjective: improving afeb less BM Objective - Vital Signs/Intake and Output Vital Signs (last 24 hours): Temp Pulse Resp BP Pulse Ox 98.7 F 110 H 30 H 111/71 96 12/26/18 04:00 12/26/18 15:00 12/26/18 15:00 12/26/18 12:55 12/26/18 13:00 Intake and Output: 12/26/18 12/26/18 06:59 18:59 Intake Total 1720 395 Output Total 225 40 Balance 1495 355 - Medications Medications: Current Medications Famotidine (Pepcid) 20 mg IVP DAILY [facility] Last Admin: 12/26/18 09:59 Dose: 20 mg Heparin Sodium (Porcine) (Heparin) 5,000 units SC Q12 [facility] Last Admin: 12/26/18 09:59 Dose: 5,000 units Metronidazole (Flagyl) 500 mg in 100 mls @ 100 mls/hr IVPB Q8H [facility]; Protocol Last Admin: 12/26/18 16:00 Dose: 100 mls/hr Acetaminophen 1,000 mg/ (Miscellaneous) 100 mls @ 400 mls/hr IV Q12 PRN PRN Reason: Pain, severe (8-10) Stop: 12/27/18 10:01 Potassium Chloride 20 meq/ (Dextrose/Sodium Chloride) 1,010 mls @ 75 mls/hr IV .[id number] [facility] Influenza Virus Vaccine (Flucelvax Quad 7298-2568 Syr) 60 mcg IM .ONCE ONE Stop: 12/28/18 11:24 Insulin Human Regular (Novolin R) 0 unit SC ACHS [facility]; Protocol Last Admin: 12/26/18 17:59 Dose: 1 units Vancomycin HCl (Vancocin 250mg Capsule) 250 mg PO QID [facility] Last Admin: 12/26/18 17:58 Dose: 250 mg Venlafaxine HCl (Effexor Xr) 150 mg PO DAILY [facility] - Labs Labs: 12/26/18 06:20 12/26/18 06:20 PT 22.6 SECONDS (9.7-12.2) H D 12/24/18 14:57 INR 2.1 D 12/24/18 14:57 APTT 33 SECONDS (21-34) 12/24/18 14:57 - Constitutional Appears: Non-toxic, No Acute Distress, Chronically Ill - Head Exam Head Exam: ATRAUMATIC, NORMAL INSPECTION, NORMOCEPHALIC - Eye Exam Eye Exam: EOMI, Normal appearance, PERRL Pupil Exam: NORMAL ACCOMODATION, PERRL - ENT Exam ENT Exam: Mucous Membranes Moist, Normal Exam - Neck Exam Neck Exam: Full ROM, Normal Inspection. absent: Lymphadenopathy - Respiratory Exam Respiratory Exam: Clear to Ausculation Bilateral, NORMAL BREATHING PATTERN - Cardiovascular Exam Cardiovascular Exam: REGULAR RHYTHM, +S1, +S2. absent: Murmur - GI/Abdominal Exam GI & Abdominal Exam: Distended, Guarding, Soft, Tenderness, Hyperactive Bowel Sounds - Rectal Exam Rectal Exam: NORMAL INSPECTION - Exam Exam: Circumcision, NORMAL INSPECTION External exam: NORMAL EXTERNAL EXAM Speculum exam: NORMAL SPECULUM EXAM Bimanual exam: NORMAL BIMANUAL EXAM - Extremities Exam Extremities Exam: Full ROM, Normal Capillary Refill, Normal Inspection. absent: Joint Swelling, Pedal Edema - Back Exam Back Exam: NORMAL INSPECTION - Neurological Exam Neurological Exam: Alert, Awake, CN II-XII Intact, Normal Gait, Oriented x3 - Psychiatric Exam Psychiatric exam: Normal Affect, Normal Mood - Skin Skin Exam: Dry, Intact, Normal Color, Warm Assessment and Plan (1) Abdominal pain Status: Acute (2) Colitis Status: Acute (3) Sepsis Status: Acute (4) Depressed Status: Acute (5) Renal insufficiency Status: Acute (6) Change in mental status Status: Chronic (7) Dementia Status: Chronic (8) LOUIE (acute kidney injury) Status: Resolved (9) Atrial fibrillation with RVR Status: Resolved (10) Congestive cardiac failure Status: Resolved (11) Renal insufficiency Status: Resolved (12) CVA (cerebral vascular accident) Status: Ruled-out (13) Seizures Status: Ruled-out - Assessment and Plan (Free Text) Assessment: WILL RENEW IV AND PO ANTIBIOTICS
[2018-12-26] MEDS: Potassium Chloride 20 MEQ in Dextrose 5%/0.9% NS 1,000 ML IV SCH (19:40)
--- NOTE | 2018-12-26 22:25 | CARD ---
APPROVED REPORT Date of service: 12/22/2018 EKG Measurement Heart [id number] <Conclusion> Sinus tachycardia Abnormal ECG
[2018-12-27] MEDS: metroNIDAZOLE IV 500 mg/100 ml 500 MG/100 ML BAG IVPB SCH ×4 (00:05→23:11)
[2018-12-27 07:00] LABS: BASO % 0.3 % (0.0-2.0); MEAN CORPUSCULAR HGB CONC 31.5 g/dL (33.0-37.0)
[2018-12-27 07:51] LABS: HEMOGLOBIN 9.8 g/dL (11.0-16.0); LYMPH # 1.2 K/uL (1.0-4.3); LYMPH % 8.1 % (20.0-40.0); MEAN CELL VOLUME 80.1 fL (81.0-99.0); MEAN CORPUSCULAR HEMOGLOBIN 25.2 pg (27.0-31.0); MEAN PLATELET VOLUME 9.1 fL (7.2-11.7); MONO # 0.6 K/uL (0.0-0.8); MONO % 4.1 % (0.0-10.0); NEUT # 13.3 K/uL (1.8-7.0); NEUT % 87.5 % (50.0-75.0); PLATELET COUNT 395 K/uL (130-400); RBC 3.86 Mil/uL (3.80-5.20); RED CELL DISTRIBUTION WIDTH 18.1 % (11.5-14.5); WHITE BLOOD COUNT 15.2 K/uL (4.8-10.8)
[2018-12-27] MEDS: (Novolin R) Insulin Human Regular 100 units/ml vial SC SCH ×4 (08:04→21:22)
[2018-12-27 08:12] LABS: ALB/GLOB RATIO 0.9 (1.0-2.1); ALBUMIN 2.5 g/dL (3.5-5.0)
[2018-12-27 08:53] LABS: ANISOCYTOSIS SLIGHT; BANDS 9 % (0-2); LYMPHOCYTE 6 % (20-40); METAMYELOCYTE 1 % (0-0); MONOCYTE 3 % (0-10); MYELOCYTE 1 % (0-0); NEUTROPHIL 80 % (50-75); PLATELET ESTIMATE NORMAL (NORMAL); TOTAL CELLS COUNTED 100
--- NOTE | 2018-12-27 08:53 | CP.PCM.PN ---
<Susannah Romo - Last Filed: 12/27/18 08:50> Subjective - Date & Time of Evaluation Date of Evaluation: 12/27/18 Time of Evaluation: 08:50 - Subjective Subjective: General Surgery - Dr. Waters Pt S&EMisa PATEL. Pt denies any pain but does complain of mild abdominal pain when palpated. She denies any Fevers/chills, SOB/chest pain/Nausea/vomiting. She is tolerating liquid diet. Objective - Vital Signs/Intake and Output Vital Signs (last 24 hours): Temp Pulse Resp BP Pulse Ox 98.9 F 104 H 25 H 124/69 100 12/27/18 04:00 12/27/18 07:00 12/27/18 07:00 12/27/18 06:55 12/27/18 07:00 Intake and Output: 12/27/18 12/27/18 06:59 18:59 Intake Total 1350 175 Output Total 330 30 Balance 1020 145 - Medications Medications: Current Medications Famotidine (Pepcid) 20 mg IVP DAILY [facility] Last Admin: 12/26/18 09:59 Dose: 20 mg Heparin Sodium (Porcine) (Heparin) 5,000 units SC Q12 [facility] Last Admin: 12/26/18 21:58 Dose: 5,000 units Metronidazole (Flagyl) 500 mg in 100 mls @ 100 mls/hr IVPB Q8H [facility]; Protocol Last Admin: 12/27/18 08:02 Dose: 100 mls/hr Acetaminophen 1,000 mg/ (Miscellaneous) 100 mls @ 400 mls/hr IV Q12 PRN PRN Reason: Pain, severe (8-10) Stop: 12/27/18 10:01 Potassium Chloride 20 meq/ (Dextrose/Sodium Chloride) 1,010 mls @ 75 mls/hr IV .[id number] [facility] Last Admin: 12/26/18 19:40 Dose: 75 mls/hr Influenza Virus Vaccine (Flucelvax Quad 2023-1726 Syr) 60 mcg IM .ONCE ONE Stop: 12/28/18 11:24 Insulin Human Regular (Novolin R) 0 unit SC ACHS [facility]; Protocol Last Admin: 12/27/18 08:04 Dose: 1 units Vancomycin HCl (Vancocin 250mg Capsule) 250 mg PO QID [facility] Last Admin: 12/26/18 21:56 Dose: 250 mg Venlafaxine HCl (Effexor Xr) 150 mg PO DAILY [facility] - Labs Labs: 12/27/18 06:57 12/27/18 06:57 PT 22.6 SECONDS (9.7-12.2) H D 12/24/18 14:57 INR 2.1 D 12/24/18 14:57 APTT 33 SECONDS (21-34) 12/24/18 14:57 - Constitutional Appears: No Acute Distress - Head Exam Head Exam: ATRAUMATIC, NORMAL INSPECTION, NORMOCEPHALIC - Eye Exam Eye Exam: Normal appearance - Cardiovascular Exam Cardiovascular Exam: REGULAR RHYTHM - GI/Abdominal Exam GI & Abdominal Exam: Distended (mild), Soft, Tenderness (mild ttp diffusely). absent: Firm, Guarding, Rigid, Hernia, Mass, Rebound - Neurological Exam Neurological Exam: Alert, Oriented x3 - Psychiatric Exam Psychiatric exam: Normal Affect, Normal Mood - Skin Skin Exam: Dry, Intact Assessment and Plan - Assessment and Plan (Free Text) Assessment: 73F w/ C.Diff colitis, improving Plan: - Cont. pain control PRN; recommend rectal analgesia - Abx: Vanco/Flagyl - Monitor WBC, trending down - Replace electrolytes prn - No surgical intervention needed at this time - Management per critical care team - Surgery will sign off, please recall PRN DW Dr. Evelin Romo PGY4 <Bienvenido Waters - Last Filed: 01/01/19 20:36> Objective - Vital Signs/Intake and Output Vital Signs (last 24 hours): Temp Pulse Resp BP Pulse Ox 98.0 F 90 20 120/82 98 01/01/19 16:00 01/01/19 16:00 01/01/19 16:00 01/01/19 16:00 01/01/19 16:00 Intake and Output: 01/01/19 01/02/19 18:59 06:59 Intake Total 300 Output Total 400 Balance -100 - Medications Medications: Current Medications Apixaban (Eliquis) 2.5 mg PO Q12 [facility] Last Admin: 01/01/19 08:59 Dose: 2.5 mg Aspirin (Ecotrin) 81 mg PO DAILY [facility] Last Admin: 01/01/19 08:59 Dose: 81 mg Famotidine (Pepcid) 20 mg PO DAILY [facility] Last Admin: 01/01/19 08:59 Dose: 20 mg Insulin Human Regular (Novolin R) 0 unit SC ACHS [facility]; Protocol Last Admin: 01/01/19 17:30 Dose: 1 units Metoprolol Succinate (Toprol Xl) 25 mg PO QPM [facility] Last Admin: 01/01/19 18:31 Dose: 25 mg Metronidazole (Flagyl) 500 mg PO Q8 [facility] Last Admin: 01/01/19 14:00 Dose: 500 mg Mirtazapine (Remeron) 30 mg PO HS [facility] Last Admin: 12/31/18 22:04 Dose: 30 mg Vancomycin HCl (Vancocin 250mg Capsule) 250 mg PO QID [facility] Last Admin: 01/01/19 18:31 Dose: 250 mg Venlafaxine HCl (Effexor) 150 mg PO DAILY [facility] Last Admin: 12/28/18 09:30 Dose: 150 mg - Labs Labs: 01/01/19 06:23 01/01/19 06:24 PT 22.6 SECONDS (9.7-12.2) H D 12/24/18 14:57 INR 2.1 D 12/24/18 14:57 APTT 33 SECONDS (21-34) 12/24/18 14:57 Attending/Attestation - Attestation I have personally seen and examined this patient.: Yes I have fully participated in the care of the patient.: Yes I have reviewed all pertinent clinical information, including history, physical exam and plan: Yes Notes (Text): Pt was seen and examine at bedside Agree with above note and assessment Pt is improved clinically No general surgical intervention required at present f.u as neede Plan d.w Primary team Plan d.w pt in detail Risk and benefit explained in detail.
[2018-12-27 08:54] LABS: HYPOCHROMIC SLIGHT; TOXIC GRANULATION PRESENT
[2018-12-27 08:55] LABS: LARGE PLATELETS PRESENT
[2018-12-27] MEDS ORDERED: Albumin Human 5% (12.5 gm/250 ml) IV ONE (08:57)
[2018-12-27] MEDS ORDERED: Potassium Chloride 20 mEq/15 ml LIQ UD PO ONE (09:08)
[2018-12-27] MEDS: Vancomycin Hydrochloride 250 mg Capsule (Oral) PO SCH ×4 (09:29→21:28)
[2018-12-27] MEDS: Potassium Chloride 20 MEQ in Dextrose 5%/0.9% NS 1,000 ML IV SCH ×2 (09:29→21:03)
[2018-12-27] MEDS ORDERED: Albumin Human 25% (12.5 gm/50 ml) IV ONE (09:36)
[2018-12-27] MEDS ORDERED: Venlafaxine 75 mg ER Cap PO SCH (10:00)
--- NOTE | 2018-12-27 10:32 | CP.PCM.PN ---
Subjective - Date & Time of Evaluation Date of Evaluation: 12/27/18 Time of Evaluation: 10:31 - Subjective Subjective: Nephrology Consultation Note: Assessment: stablel Acute Kidney Injury (N17.9) likely due to ATN due to sepsis, IV contrast C.Diff colitis, hagma with respi compensation, hyponatremia hypocalcemia Diabetic chronic Kidney Disease (E11.22) Hypertensive Chronic Kidney Disease (I12.9) Chronic Kidney Disease (N18.3) Stage 3 with ? mg proteinuria (R80.9) Anemia (D64.9) hx of dig toxicity, A fib, CVA, hypothyroidism left adrenal nodule Plan No acute need for renal replacement therapy at this time. renal function improving Hypertension control with meds as ordered. Maintain hemodynamics stable. Avoid hypotension. Patient not on ACEI/ARB due to recent LOUIE Monitor Input/Output, daily weights and renal function with basic metabolic p rosalva agree with IVF 2 gram IV ca today. supplement lytes as needed left adrenal nodule work up as outpt Dose meds/antibiotics for reduced GFR. Avoid fleets enema/magnesium based laxatives. Avoid nephrotoxins/NSAIDs/ iodinated contrast (unless needed emergently) Glycemic control Further work up/management as per primary team Thanks for allowing me to participate in care of your patient. Will follow patient with you. Please call if any Qs. had d/w team Dr Raghu Solis Office: [phone] Chief Complaint; pain abdomen Reason for consult: Acute Kidney Injury HPI: Pt is a 73 F with hx of diabetes Mellitus ( years), hypertension (years) CKD 3 with baseline cr 1.2-1.4, hx of dig toxicity, A fib, CVA, hypothyroidism presented with complaints of pain abdomen and being managed for sepsis, colitis, transferred to ICU Denies OTC/herbal meds or NSAIDs Noted recent iodinated contrast exposure. Noted obvious episodes of low BP (99/61). pt not aware about kidney disease in past ROS: Cardiovascular: No chest pain. Pulmonary: No shortness of breath Gastrointestinal: improved abdominal pain No nausea. No vomiting. Genitourinary: No pain while urinating. Denies blood in urine. All other negative except as mentioned in HPI Physical Examination: General Appearance: comfortable, in no acute respiratory distress, co-operative . better appearing Vitals reviewed and noted as below Head; Atraumatic, normocephalic ENT: no ulcers no thrush. Tongue is midline. Oropharynx: no rash or ulcers. EYES: Pupils are equal, round and reactive to light accommodation. Eye muscles and extraocular movement intact. Sclera is anicteric. Neck; supple no lymphadenopathy, no thyromegaly or bruit Lungs: Normal respiratory rate/effort. Breath sounds bilateral equal and clear Heart: normal rate. s1s2 normal. No rub or gallop. Extremities: no edema. No varicose veins Neurological: Patient is alert, awake No focal deficit. Strength bilateral appropriate and equal. confused Skin: Warm and dry. Normal turgor. No rash. Palpitation: Normal elasticity for age Abdomen: Abdomen is soft. Bowel sounds +. There is distension but mild abdominal tenderness, no guarding/rigidity no organomegaly Psych: limited insight and normal affect/mood MSK: no joint tenderness or swelling. Digits and nails normal, no deformity : kidney or bladder not palpable Labs/imaging reviewed. Past medical history, past surgical history, family history, social history, allergy reviewed and noted as below Family hx: no hx of CKD. Rest non-contributory Objective - Vital Signs/Intake and Output Vital Signs (last 24 hours): Temp Pulse Resp BP Pulse Ox 98.9 F 104 H 25 H 124/69 100 12/27/18 04:00 12/27/18 07:00 12/27/18 07:00 12/27/18 06:55 12/27/18 07:00 Intake and Output: 12/27/18 12/27/18 06:59 18:59 Intake Total 1350 175 Output Total 330 30 Balance 1020 145 - Medications Medications: Current Medications Famotidine (Pepcid) 20 mg IVP DAILY [facility] Last Admin: 12/27/18 09:28 Dose: 20 mg Heparin Sodium (Porcine) (Heparin) 5,000 units SC Q12 [facility] Last Admin: 12/27/18 09:31 Dose: 5,000 units Metronidazole (Flagyl) 500 mg in 100 mls @ 100 mls/hr IVPB Q8H [facility]; Protocol Last Admin: 12/27/18 08:02 Dose: 100 mls/hr Potassium Chloride 20 meq/ (Dextrose/Sodium Chloride) 1,010 mls @ 75 mls/hr IV .[id number] [facility] Last Admin: 12/27/18 09:29 Dose: 75 mls/hr Calcium Gluconate 2,000 mg/ (Sodium Chloride) 270 mls @ 125 mls/hr IVPB ONCE ONE Stop: 12/27/18 11:06 Last Admin: 12/27/18 09:38 Dose: 125 mls/hr Influenza Virus Vaccine (Flucelvax Quad [id number] Syr) 60 mcg IM .ONCE ONE Stop: 12/28/18 11:24 Insulin Human Regular (Novolin R) 0 unit SC [facility]; Protocol Last Admin: 12/27/18 08:04 Dose: 1 units Vancomycin HCl (Vancocin 250mg Capsule) 250 mg PO QID [facility] Last Admin: 12/27/18 09:29 Dose: 250 mg Venlafaxine HCl (Effexor Xr) 150 mg PO DAILY [facility] Last Admin: 12/27/18 09:28 Dose: 150 mg - Labs Labs: 12/27/18 06:57 12/27/18 06:57 PT 22.6 SECONDS (9.7-12.2) H D 12/24/18 14:57 INR 2.1 D 12/24/18 14:57 APTT 33 SECONDS (21-34) 12/24/18 14:57
--- NOTE | 2018-12-27 10:39 | CP.PCM.PN ---
Subjective - Date & Time of Evaluation Date of Evaluation: 12/27/18 Time of Evaluation: 10:37 - Subjective Subjective: seen in icu still has diarhea 3 times this morning less abd pain Objective - Vital Signs/Intake and Output Vital Signs (last 24 hours): Temp Pulse Resp BP Pulse Ox 98.9 F 104 H 25 H 124/69 100 12/27/18 04:00 12/27/18 07:00 12/27/18 07:00 12/27/18 06:55 12/27/18 07:00 Intake and Output: 12/27/18 12/27/18 06:59 18:59 Intake Total 1350 175 Output Total 330 30 Balance 1020 145 - Medications Medications: Current Medications Famotidine (Pepcid) 20 mg IVP DAILY [facility] Last Admin: 12/27/18 09:28 Dose: 20 mg Heparin Sodium (Porcine) (Heparin) 5,000 units SC Q12 [facility] Last Admin: 12/27/18 09:31 Dose: 5,000 units Metronidazole (Flagyl) 500 mg in 100 mls @ 100 mls/hr IVPB Q8H [facility]; Protocol Last Admin: 12/27/18 08:02 Dose: 100 mls/hr Potassium Chloride 20 meq/ (Dextrose/Sodium Chloride) 1,010 mls @ 75 mls/hr IV .[id number] [facility] Last Admin: 12/27/18 09:29 Dose: 75 mls/hr Calcium Gluconate 2,000 mg/ (Sodium Chloride) 270 mls @ 125 mls/hr IVPB ONCE ONE Stop: 12/27/18 11:06 Last Admin: 12/27/18 09:38 Dose: 125 mls/hr Influenza Virus Vaccine (Flucelvax Quad [id number] Syr) 60 mcg IM .ONCE ONE Stop: 12/28/18 11:24 Insulin Human Regular (Novolin R) 0 unit SC ACHS [facility]; Protocol Last Admin: 12/27/18 08:04 Dose: 1 units Vancomycin HCl (Vancocin 250mg Capsule) 250 mg PO QID [facility] Last Admin: 12/27/18 09:29 Dose: 250 mg Venlafaxine HCl (Effexor Xr) 150 mg PO DAILY [facility] Last Admin: 12/27/18 09:28 Dose: 150 mg - Labs Labs: 12/27/18 06:57 12/27/18 06:57 PT 22.6 SECONDS (9.7-12.2) H D 12/24/18 14:57 INR 2.1 D 12/24/18 14:57 APTT 33 SECONDS (21-34) 12/24/18 14:57 - Constitutional Appears: In Acute Distress - Head Exam Head Exam: ATRAUMATIC - Eye Exam Eye Exam: Normal appearance Pupil Exam: NORMAL ACCOMODATION - ENT Exam ENT Exam: Mucous Membranes Moist - Neck Exam Neck Exam: Full ROM - Respiratory Exam Respiratory Exam: Clear to Ausculation Bilateral - Cardiovascular Exam Cardiovascular Exam: REGULAR RHYTHM - GI/Abdominal Exam GI & Abdominal Exam: Tenderness - Extremities Exam Extremities Exam: Full ROM - Back Exam Back Exam: NORMAL INSPECTION - Neurological Exam Neurological Exam: Alert, Awake, Oriented x3 - Psychiatric Exam Psychiatric exam: Normal Mood - Skin Skin Exam: Pallor Assessment and Plan - Assessment and Plan (Free Text) Assessment: ac abd pain ac cdef infection htn aneamia Plan: continu as per orders
--- NOTE | 2018-12-27 10:50 | CP.CCUPN ---
<TijerinaGiannaJerzy M - Last Filed: 12/27/18 11:06> CCU Subjective - Physician Review Subjective (Free Text): Critical care progress note for Dr. Brothers. Patient seen and examined at bedside. No acute events overnight. Patient had 2 episodes of non-bloody diarrhea overnight. Patient offers not complaints, states she feels much better. Patient denies headaches, vision changes, chest pain, SOB, nausea, vomiting, fevers, chills. CCU Objective - Vital Signs / Intake & Output Vital Signs (Last 4 hours): Vital Signs Pulse Resp BP Pulse Ox 12/27/18 07:00 104 H 25 H 100 12/27/18 06:55 124/69 Intake and Output (Last 8hrs): Intake & Output 12/26/18 12/27/18 12/27/18 22:59 06:59 14:59 Intake Total 755 825 175 Output Total 210 240 30 Balance 545 585 145 Weight 167 lb Intake: Intake, IV Amount 305 625 75 Right Hand 225 625 75 Right Wrist 80 Oral 450 200 100 Output: Urine 210 240 30 Urethral (Vazquez) 210 240 30 Other: # Bowel Movements 0 0 0 - Physical Exam Head: Positive for: Atraumatic, Normocephalic Extroacular Muscles: Positive for: EOMI Conjunctiva: Positive for: Normal Mouth: Positive for: Moist Mucous Membranes Respiratory/Chest: Negative for: Clear to Auscultation, Accessory Muscle Use Abdomen: Positive for: Tenderness (distended, abdominal tenderness through all quads ), Distention, Normal Bowel Sounds Upper Extremity: Positive for: Normal Inspection. Negative for: Edema Lower Extremity: Positive for: Normal Inspection. Negative for: Edema Skin: Positive for: Warm, Dry, Rashes Psychiatric: Positive for: Oriented x 3 - Medications Active Medications: Active Medications Generic Name Dose Route Start Last Admin Trade Name Freq PRN Reason Stop Dose Admin Famotidine 20 mg 12/26/18 10:00 12/27/18 09:28 Pepcid IVP 20 mg DAILY SHIRA Administration Heparin Sodium (Porcine) 5,000 units 12/24/18 10:00 12/27/18 09:31 Heparin SC 5,000 units Q12 SHIRA Administration Metronidazole 500 mg in 100 mls @ 100 mls/hr 12/23/18 16:00 12/27/18 08:02 Flagyl IVPB 100 mls/hr Q8H SHIRA Administration Protocol Potassium Chloride 20 meq/ 1,010 mls @ 75 mls/hr 12/26/18 18:15 12/27/18 09:29 Dextrose/Sodium Chloride IV 75 mls/hr .[id number] SHIRA Administration Calcium Gluconate 2,000 mg/ 270 mls @ 125 mls/hr 12/27/18 08:57 12/27/18 09:38 Sodium Chloride IVPB 12/27/18 11:06 125 mls/hr ONCE ONE Administration Influenza Virus Vaccine 60 mcg 12/28/18 11:23 Flucelvax Quad 1508-0585 Syr IM 12/28/18 11:24 .ONCE ONE Insulin Human Regular 0 unit 12/23/18 16:30 12/27/18 08:04 Novolin R SC 1 units ACHS SHIRA Administration Protocol Vancomycin HCl 250 mg 12/24/18 10:15 12/27/18 09:29 Vancocin 250mg Capsule PO 250 mg QID SHIRA Administration Venlafaxine HCl 150 mg 12/27/18 10:00 12/27/18 09:28 Effexor Xr PO 150 mg DAILY SHIRA Administration - Patient Studies Lab Studies: Microbiology Studies 12/24/18 09:57 Blood Culture - Preliminary Blood NO GROWTH AFTER 3 DAYS 12/24/18 09:57 Blood Culture - Preliminary Blood NO GROWTH AFTER 3 DAYS 12/22/18 19:45 Blood Culture - Preliminary Blood NO GROWTH AFTER 4 DAYS 12/22/18 19:10 Blood Culture - Preliminary Blood NO GROWTH AFTER 4 DAYS 12/25/18 09:22 Ova and Parasite Concentrate Exam - Final Stool 12/24/18 13:47 Stool Culture - Final Stool NO SALMONELLA, SHIGELLA OR CAMPYLOBACTER ISOLATED. 12/25/18 06:23 Urine Culture - Final Urine,Catheterized No Growth (<1,000 CFU/ML) Lab Studies 12/27/18 12/27/18 12/26/18 Range/Units 06:57 06:57 11:56 WBC 15.2 H (4.8-10.8) K/uL RBC 3.86 (3.80-5.20) Mil/uL Hgb 9.8 L (11.0-16.0) g/dL Hct 31.0 L (34.0-47.0) % MCV 80.1 L (81.0-99.0) fL MCH 25.2 L (27.0-31.0) pg MCHC 31.5 L (33.0-37.0) g/dL RDW 18.1 H (11.5-14.5) % Plt Count 395 (130-400) K/uL MPV 9.1 (7.2-11.7) fL Neut % (Auto) 87.5 H (50.0-75.0) % Lymph % (Auto) 8.1 L (20.0-40.0) % Charlton % (Auto) 4.1 (0.0-10.0) % Eos % (Auto) 0.0 (0.0-4.0) % Baso % (Auto) 0.3 (0.0-2.0) % Neut # (Auto) 13.3 H (1.8-7.0) K/uL Lymph # (Auto) 1.2 (1.0-4.3) K/uL Charlton # (Auto) 0.6 (0.0-0.8) K/uL Eos # (Auto) 0.0 (0.0-0.7) K/uL Baso # (Auto) 0.0 (0.0-0.2) K/uL Neutrophils % (Manual) 80 H (50-75) % Band Neutrophils % 9 H (0-2) % Lymphocytes % (Manual) 6 L (20-40) % Monocytes % (Manual) 3 (0-10) % Metamyelocytes % 1 H (0-0) % Myelocytes % 1 H (0-0) % Toxic Granulation Present Platelet Estimate Normal (NORMAL) Large Platelets Present Hypochromasia (manual) Slight Anisocytosis (manual) Slight Sodium 134 (132-148) mmol/L Potassium 3.5 L (3.6-5.2) mmol/L Chloride 100 (98-107) mmol/L Carbon Dioxide 23 (22-30) mmol/L Anion Gap 14 (10-20) BUN 45 H (7-17) mg/dL Creatinine 1.6 H (0.7-1.2) mg/dL Est GFR ( Amer) 38 Est GFR (Non-Af Amer) 31 POC Glucose (mg/dL) 163 H (65-110) mg/dL Random Glucose 161 H (65-105) mg/dL Calcium 6.0 L* (8.6-10.4) mg/dl Phosphorus 3.6 (2.5-4.5) mg/dL Magnesium 2.2 (1.6-2.3) mg/dL Total Bilirubin 0.7 (0.2-1.3) mg/dL AST 29 (14-36) U/L ALT 21 (9-52) U/L Alkaline Phosphatase 78 (38-126) U/L Total Protein 5.2 L (6.3-8.3) g/dL Albumin 2.5 L D (3.5-5.0) g/dL Globulin 2.7 (2.2-3.9) gm/dL Albumin/Globulin Ratio 0.9 L (1.0-2.1) Stl Cryptosporidium Ag (Not detected) Cryptosp/Giardia Source Giardia Antigen (Not Detected) 12/26/18 12/24/18 Range/Units 06:20 13:47 WBC (4.8-10.8) K/uL RBC (3.80-5.20) Mil/uL Hgb (11.0-16.0) g/dL Hct (34.0-47.0) % MCV (81.0-99.0) fL MCH (27.0-31.0) pg MCHC (33.0-37.0) g/dL RDW (11.5-14.5) % Plt Count (130-400) K/uL MPV (7.2-11.7) fL Neut % (Auto) (50.0-75.0) % Lymph % (Auto) (20.0-40.0) % Charlton % (Auto) (0.0-10.0) % Eos % (Auto) (0.0-4.0) % Baso % (Auto) (0.0-2.0) % Neut # (Auto) (1.8-7.0) K/uL Lymph # (Auto) (1.0-4.3) K/uL Charlton # (Auto) (0.0-0.8) K/uL Eos # (Auto) (0.0-0.7) K/uL Baso # (Auto) (0.0-0.2) K/uL Neutrophils % (Manual) (50-75) % Band Neutrophils % (0-2) % Lymphocytes % (Manual) (20-40) % Monocytes % (Manual) (0-10) % Metamyelocytes % (0-0) % Myelocytes % (0-0) % Toxic Granulation Platelet Estimate (NORMAL) Large Platelets Hypochromasia (manual) Anisocytosis (manual) Sodium 133 (132-148) mmol/L Potassium 3.7 (3.6-5.2) mmol/L Chloride 96 L (98-107) mmol/L Carbon Dioxide 24 (22-30) mmol/L Anion Gap 16 (10-20) BUN 53 H (7-17) mg/dL Creatinine 2.2 H (0.7-1.2) mg/dL Est GFR ( Amer) 26 Est GFR (Non-Af Amer) 22 POC Glucose (mg/dL) (65-110) mg/dL Random Glucose 170 H D (65-105) mg/dL Calcium 6.1 L (8.6-10.4) mg/dl Phosphorus (2.5-4.5) mg/dL Magnesium 2.1 (1.6-2.3) mg/dL Total Bilirubin (0.2-1.3) mg/dL AST (14-36) U/L ALT (9-52) U/L Alkaline Phosphatase (38-126) U/L Total Protein (6.3-8.3) g/dL Albumin (3.5-5.0) g/dL Globulin (2.2-3.9) gm/dL Albumin/Globulin Ratio (1.0-2.1) Stl Cryptosporidium Ag Not detected (Not detected) Cryptosp/Giardia Source Stool Giardia Antigen Not detected (Not Detected) Laboratory Results - last 24 hr 12/24/18 12/26/18 12/26/18 13:47 06:20 11:56 WBC RBC Hgb Hct MCV MCH MCHC RDW Plt Count MPV Neut % (Auto) Lymph % (Auto) Charlton % (Auto) Eos % (Auto) Baso % (Auto) Neut # (Auto) Lymph # (Auto) Charlton # (Auto) Eos # (Auto) Baso # (Auto) Neutrophils % (Manual) Band Neutrophils % Lymphocytes % (Manual) Monocytes % (Manual) Metamyelocytes % Myelocytes % Toxic Granulation Platelet Estimate Large Platelets Hypochromasia (manual) Anisocytosis (manual) Sodium 133 Potassium 3.7 Chloride 96 L Carbon Dioxide 24 Anion Gap 16 BUN 53 H Creatinine 2.2 H Est GFR ( Amer) 26 Est GFR (Non-Af Amer) 22 POC Glucose (mg/dL) 163 H Random Glucose 170 H D Calcium 6.1 L Phosphorus Magnesium 2.1 Total Bilirubin AST ALT Alkaline Phosphatase Total Protein Albumin Globulin Albumin/Globulin Ratio Stl Cryptosporidium Ag Not detected Cryptosp/Giardia Source Stool Giardia Antigen Not detected 12/27/18 12/27/18 06:57 06:57 WBC 15.2 H RBC 3.86 Hgb 9.8 L Hct 31.0 L MCV 80.1 L MCH 25.2 L MCHC 31.5 L RDW 18.1 H Plt Count 395 MPV 9.1 Neut % (Auto) 87.5 H Lymph % (Auto) 8.1 L Charlton % (Auto) 4.1 Eos % (Auto) 0.0 Baso % (Auto) 0.3 Neut # (Auto) 13.3 H Lymph # (Auto) 1.2 Charlton # (Auto) 0.6 Eos # (Auto) 0.0 Baso # (Auto) 0.0 Neutrophils % (Manual) 80 H Band Neutrophils % 9 H Lymphocytes % (Manual) 6 L Monocytes % (Manual) 3 Metamyelocytes % 1 H Myelocytes % 1 H Toxic Granulation Present Platelet Estimate Normal Large Platelets Present Hypochromasia (manual) Slight Anisocytosis (manual) Slight Sodium 134 Potassium 3.5 L Chloride 100 Carbon Dioxide 23 Anion Gap 14 BUN 45 H Creatinine 1.6 H Est GFR ( Amer) 38 Est GFR (Non-Af Amer) 31 POC Glucose (mg/dL) Random Glucose 161 H Calcium 6.0 L* Phosphorus 3.6 Magnesium 2.2 Total Bilirubin 0.7 AST 29 ALT 21 Alkaline Phosphatase 78 Total Protein 5.2 L Albumin 2.5 L D Globulin 2.7 Albumin/Globulin Ratio 0.9 L Stl Cryptosporidium Ag Cryptosp/Giardia Source Giardia Antigen Radiology Impressions: Radiology Impressions Abdomen X-Ray 12/26/18 06:00 IMPRESSION: Nonspecific bowel gas pattern. Fingerstick Blood Sugar Results: 173 Review of Systems - Constitutional Constitutional: absent: Fever, Chills, Sweats, Weakness - EENT Eyes: UNREMARKABLE. absent: Blurred Vision, Discharge Ears: UNREMARKABLE Nose/Mouth/Throat: UNREMARKABLE. absent: Nasal Congestion, Nose Pain - Cardiovascular Cardiovascular: UNREMARKABLE. absent: Chest Pain, Chest Pain at Rest - Respiratory Respiratory: UNREMARKABLE. absent: Cough, Dyspnea - Gastrointestinal Gastrointestinal: UNREMARKABLE. absent: Abdominal Pain, Bloating - Genitourinary Genitourinary: UNREMARKABLE - Musculoskeletal Musculoskeletal: UNREMARKABLE. absent: Joint Swelling, Muscle Weakness - Integumentary Integumentary: UNREMARKABLE. absent: Change in Hair, Dry Skin - Neurological Neurological: UNREMARKABLE. absent: Headaches, Syncope - Psychiatric Psychiatric: UNREMARKABLE - Endocrine Endocrine: UNREMARKABLE Critical Care Progress Note - Prophylaxis GI Prophylaxis GI: Pepsid - Prophylaxis DVT Prophylaxis DVT: Heparin SQ - Nutrition Nutrition: Nutrition Category Date Time Status Liquid Diet [DIET] Diets 12/26/18 Breakfast Active Assessment/Plan - Assessment and Plan (Free Text) Assessment: 73 F w/ PMhx CHF, CKD, Afib presented to hospital elevated digoxin level, low hemoglobin, transferred to ICU for sepsis, elevated leukocytosis, and distended abdomen. Patient is C. diff positive, on contact isolation ( was previously on kaflex for dental infection & ceftriaxone). Patient is improving, with WBC downtrending, afebrile > 24H, H/H stable. Patient has improving acute w/ chronic renal failure Patient is more awake, responsive. Patient producing about 22 cc/hr urine. 1) Colitis secondary to C. diff 2) Acute anemia 3) Sepsis 4) Acute on chronic renal failure 5) afib Plan: Neuro - A&O x 3 Cardio - vitals WNL - hx of afib, chx - continue to monitor, stable Pulm - vitals WNL - continue to monitor GI - colitis - C. diff positive - flagyl & vancomyicin ( see below) - vazquez in place - monitor I/O Heme - H/H stable - WBC downtrending, now to 15 - afebrile >48 Hr, Lactate wnl - U/C negative, Blood cultures negative - C. diff positive - c/w vancomyocin 250mg PO QID, flagyl 500 mg IVPB Q8H - Florastor TID Endo - BS 150s - ISS - hypoglycemia protocol Renal - Elevated BUN/Cr 45/1.6 (improving) - Acute on chronic renal failure improving - D5 NS 75 cc/hr - replenish electrolytes PPx - DVT: Heparin 5000 units Q12 - GI: Pepcid 20mg IVP daily <Kirit Brothers S - Last Filed: 12/27/18 14:39> CCU Subjective - Physician Review Critical Care Time Spent (in minutes): 35 CCU Objective - Vital Signs / Intake & Output Vital Signs (Last 4 hours): Vital Signs Temp Pulse Resp BP Pulse Ox 12/27/18 12:00 98.7 F 100 12/27/18 11:56 97 H 26 H 140/77 100 12/27/18 10:55 97 H 26 H 129/87 100 Intake and Output (Last 8hrs): Intake & Output 12/26/18 12/27/18 12/27/18 22:59 06:59 14:59 Intake Total 738 200 4500 Output Total 210 240 170 Balance 580 008 5969 Weight 167 lb Intake: Intake, IV Amount 305 625 975 Right Hand 225 625 450 Right Wrist 80 525 Oral 450 200 370 Output: Urine 210 240 170 Urethral (Vazquez) 210 240 170 Other: # Bowel Movements 0 0 1 - Medications Active Medications: Active Medications Generic Name Dose Route Start Last Admin Trade Name Freq PRN Reason Stop Dose Admin Famotidine 20 mg 12/26/18 10:00 12/27/18 09:28 Pepcid IVP 20 mg DAILY SHIRA Administration Heparin Sodium (Porcine) 5,000 units 12/24/18 10:00 12/27/18 09:31 Heparin SC 5,000 units Q12 SHIRA Administration Metronidazole 500 mg in 100 mls @ 100 mls/hr 12/23/18 16:00 12/27/18 08:02 Flagyl IVPB 100 mls/hr Q8H SHIRA Administration Protocol Potassium Chloride 20 meq/ 1,010 mls @ 75 mls/hr 12/26/18 18:15 12/27/18 09:29 Dextrose/Sodium Chloride IV 75 mls/hr .[id number] SHIRA Administration Influenza Virus Vaccine 60 mcg 12/28/18 11:23 Flucelvax Quad 2180-1270 Syr IM 12/28/18 11:24 .ONCE ONE Insulin Human Regular 0 unit 12/23/18 16:30 12/27/18 12:24 Novolin R SC Not Given ACHS SHIRA Protocol Vancomycin HCl 250 mg 12/24/18 10:15 03/05/19 09:29 Vancocin 250mg Capsule PO 250 mg QID SHIRA Administration Venlafaxine HCl 150 mg 12/27/18 10:00 12/27/18 09:28 Effexor Xr PO 150 mg DAILY SHIRA Administration - Patient Studies Lab Studies: Microbiology Studies 12/24/18 09:57 Blood Culture - Preliminary Blood NO GROWTH AFTER 3 DAYS 12/24/18 09:57 Blood Culture - Preliminary Blood NO GROWTH AFTER 3 DAYS 12/22/18 19:45 Blood Culture - Preliminary Blood NO GROWTH AFTER 4 DAYS 12/22/18 19:10 Blood Culture - Preliminary Blood NO GROWTH AFTER 4 DAYS 12/25/18 09:22 Ova and Parasite Concentrate Exam - Final Stool 12/24/18 13:47 Stool Culture - Final Stool NO SALMONELLA, SHIGELLA OR CAMPYLOBACTER ISOLATED. Lab Studies 12/27/18 12/27/18 12/24/18 Range/Units 06:57 06:57 13:47 WBC 15.2 H (4.8-10.8) K/uL RBC 3.86 (3.80-5.20) Mil/uL Hgb 9.8 L (11.0-16.0) g/dL Hct 31.0 L (34.0-47.0) % MCV 80.1 L (81.0-99.0) fL MCH 25.2 L (27.0-31.0) pg MCHC 31.5 L (33.0-37.0) g/dL RDW 18.1 H (11.5-14.5) % Plt Count 395 (130-400) K/uL MPV 9.1 (7.2-11.7) fL Neut % (Auto) 87.5 H (50.0-75.0) % Lymph % (Auto) 8.1 L (20.0-40.0) % Charlton % (Auto) 4.1 (0.0-10.0) % Eos % (Auto) 0.0 (0.0-4.0) % Baso % (Auto) 0.3 (0.0-2.0) % Neut # (Auto) 13.3 H (1.8-7.0) K/uL Lymph # (Auto) 1.2 (1.0-4.3) K/uL Charlton # (Auto) 0.6 (0.0-0.8) K/uL Eos # (Auto) 0.0 (0.0-0.7) K/uL Baso # (Auto) 0.0 (0.0-0.2) K/uL Neutrophils % (Manual) 80 H (50-75) % Band Neutrophils % 9 H (0-2) % Lymphocytes % (Manual) 6 L (20-40) % Monocytes % (Manual) 3 (0-10) % Metamyelocytes % 1 H (0-0) % Myelocytes % 1 H (0-0) % Toxic Granulation Present Platelet Estimate Normal (NORMAL) Large Platelets Present Hypochromasia (manual) Slight Anisocytosis (manual) Slight Sodium 134 (132-148) mmol/L Potassium 3.5 L (3.6-5.2) mmol/L Chloride 100 (98-107) mmol/L Carbon Dioxide 23 (22-30) mmol/L Anion Gap 14 (10-20) BUN 45 H (7-17) mg/dL Creatinine 1.6 H (0.7-1.2) mg/dL Est GFR ( Amer) 38 Est GFR (Non-Af Amer) 31 Random Glucose 161 H (65-105) mg/dL Calcium 6.0 L* (8.6-10.4) mg/dl Phosphorus 3.6 (2.5-4.5) mg/dL Magnesium 2.2 (1.6-2.3) mg/dL Total Bilirubin 0.7 (0.2-1.3) mg/dL AST 29 (14-36) U/L ALT 21 (9-52) U/L Alkaline Phosphatase 78 (38-126) U/L Total Protein 5.2 L (6.3-8.3) g/dL Albumin 2.5 L D (3.5-5.0) g/dL Globulin 2.7 (2.2-3.9) gm/dL Albumin/Globulin Ratio 0.9 L (1.0-2.1) Stl Cryptosporidium Ag Not detected (Not detected) Cryptosp/Giardia Source Stool Giardia Antigen Not detected (Not Detected) Laboratory Results - last 24 hr 12/24/18 12/27/18 12/27/18 13:47 06:57 06:57 WBC 15.2 H RBC 3.86 Hgb 9.8 L Hct 31.0 L MCV 80.1 L MCH 25.2 L MCHC 31.5 L RDW 18.1 H Plt Count 395 MPV 9.1 Neut % (Auto) 87.5 H Lymph % (Auto) 8.1 L Charlton % (Auto) 4.1 Eos % (Auto) 0.0 Baso % (Auto) 0.3 Neut # (Auto) 13.3 H Lymph # (Auto) 1.2 Charlton # (Auto) 0.6 Eos # (Auto) 0.0 Baso # (Auto) 0.0 Neutrophils % (Manual) 80 H Band Neutrophils % 9 H Lymphocytes % (Manual) 6 L Monocytes % (Manual) 3 Metamyelocytes % 1 H Myelocytes % 1 H Toxic Granulation Present Platelet Estimate Normal Large Platelets Present Hypochromasia (manual) Slight Anisocytosis (manual) Slight Sodium 134 Potassium 3.5 L Chloride 100 Carbon Dioxide 23 Anion Gap 14 BUN 45 H Creatinine 1.6 H Est GFR ( Amer) 38 Est GFR (Non-Af Amer) 31 Random Glucose 161 H Calcium 6.0 L* Phosphorus 3.6 Magnesium 2.2 Total Bilirubin 0.7 AST 29 ALT 21 Alkaline Phosphatase 78 Total Protein 5.2 L Albumin 2.5 L D Globulin 2.7 Albumin/Globulin Ratio 0.9 L Stl Cryptosporidium Ag Not detected Cryptosp/Giardia Source Stool Giardia Antigen Not detected Radiology Impressions: Radiology Impressions Abdomen X-Ray 12/26/18 06:00 IMPRESSION: Nonspecific bowel gas pattern. Critical Care Progress Note - Nutrition Nutrition: Nutrition Category Date Time Status Liquid Diet [DIET] Diets 12/26/18 Breakfast Active Attending/Attestation - Attestation I have personally seen and examined this patient.: Yes I have fully participated in the care of the patient.: Yes I have reviewed all pertinent clinical information: Yes Notes (Text): 12/27/18 14:35 Patient seen and examined in the intensive care unit. Being treated for C. difficile colitis Monitor intake and output IV albumin and calcium Follow-up lites
--- NOTE | 2018-12-27 13:16 | CP.PCM.PN ---
Subjective - Date & Time of Evaluation Date of Evaluation: 12/27/18 Time of Evaluation: 13:00 - Subjective Subjective: f/u abd pain Less abd pain. Denies Cp, SOB, RB, melena, consttip, GARCIA, SZ, tremor Objective - Vital Signs/Intake and Output Vital Signs (last 24 hours): Temp Pulse Resp BP Pulse Ox 98.7 F 97 H 26 H 140/77 100 12/27/18 12:00 12/27/18 11:56 12/27/18 11:56 12/27/18 11:56 12/27/18 12:00 Intake and Output: 12/27/18 12/27/18 06:59 18:59 Intake Total 1350 1345 Output Total 330 170 Balance 1020 1175 - Medications Medications: Current Medications Famotidine (Pepcid) 20 mg IVP DAILY [facility] Last Admin: 12/27/18 09:28 Dose: 20 mg Heparin Sodium (Porcine) (Heparin) 5,000 units SC Q12 SHIRA Last Admin: 12/27/18 09:31 Dose: 5,000 units Metronidazole (Flagyl) 500 mg in 100 mls @ 100 mls/hr IVPB Q8H SHIRA; Protocol Last Admin: 12/27/18 08:02 Dose: 100 mls/hr Potassium Chloride 20 meq/ (Dextrose/Sodium Chloride) 1,010 mls @ 75 mls/hr IV .[id number] [facility] Last Admin: 12/27/18 09:29 Dose: 75 mls/hr Influenza Virus Vaccine (Flucelvax Quad 8929-9623 Syr) 60 mcg IM .ONCE ONE Stop: 12/28/18 11:24 Insulin Human Regular (Novolin R) 0 unit SC ACHS [facility]; Protocol Last Admin: 12/27/18 12:24 Dose: Not Given Vancomycin HCl (Vancocin 250mg Capsule) 250 mg PO QID [facility] Last Admin: 12/27/18 09:29 Dose: 250 mg Venlafaxine HCl (Effexor Xr) 150 mg PO DAILY [facility] Last Admin: 12/27/18 09:28 Dose: 150 mg - Labs Labs: 12/27/18 06:57 12/27/18 06:57 PT 22.6 SECONDS (9.7-12.2) H D 12/24/18 14:57 INR 2.1 D 12/24/18 14:57 APTT 33 SECONDS (21-34) 12/24/18 14:57 - Constitutional Appears: Confused - Respiratory Exam Respiratory Exam: Clear to Ausculation Bilateral - Cardiovascular Exam Cardiovascular Exam: RRR - GI/Abdominal Exam GI & Abdominal Exam: Distended, Tenderness, Normal Bowel Sounds. absent: Guarding, Mass, Rebound - Extremities Exam Extremities Exam: absent: Calf Tenderness - Neurological Exam Neurological Exam: Alert, Awake. absent: Oriented x3 Assessment and Plan (1) Depression Status: Acute (2) Anemia Status: Acute (3) Abdominal pain Assessment & Plan: colitis. KUB- NS gas Status: Acute (4) Colitis Assessment & Plan: c diff. Improving. Less abd tenderness. WBC improving. PLTs decreasing. But INR rising. P- Cont c diff meds. Status: Acute (5) Sepsis Status: Acute (6) Renal insufficiency Status: Acute
--- NOTE | 2018-12-27 19:22 | PN ---
DATE: 12/27/2018 SUBJECTIVE: The patient's abdominal pain has improved. She is still in sinus tachycardia with EPCs. Denied any chest pain. PHYSICAL EXAMINATION: VITAL SIGNS: Blood pressure 140/77, heart rate 108, respirations 20. HEENT: Pale conjunctivae. CHEST: Clear. HEART: S1 and S2 regular. ABDOMEN: Mild diffuse tenderness. EXTREMITIES: No edema. LABORATORY DATA: Today's BUN and creatinine are 45 and 1.6 respectively. Potassium is 3.5, below normal. Calcium is 6, below normal. Magnesium level is normalized at 2.2. Hemoglobin and hematocrit are 9.8 and 31, white count 15.2, platelet count 395,000. ASSESSMENT: 1. Sinus tachycardia secondary to diarrhea and dehydration. 2. Clostridium difficile colitis. 3. Hypokalemia and hypocalcemia. 4. Mild anemia. 5. Chronic renal insufficiency. RECOMMENDATIONS: Continue current Flagyl 500 mg intravenously every 8 hours, continue subcutaneous heparin 5000 units every 12 hours, continue intravenous potassium chloride replacement, and oral vancomycin at 250 mg four times a day. Sukhdev Dave MD
[2018-12-28 06:01] LABS: BASO % 0.3 % (0.0-2.0); HEMOGLOBIN 9.7 g/dL (11.0-16.0); LYMPH # 1.7 K/uL (1.0-4.3); LYMPH % 12.7 % (20.0-40.0); MEAN CELL VOLUME 81.5 fL (81.0-99.0); MEAN CORPUSCULAR HEMOGLOBIN 25.5 pg (27.0-31.0); MEAN CORPUSCULAR HGB CONC 31.2 g/dL (33.0-37.0); MEAN PLATELET VOLUME 8.7 fL (7.2-11.7); MONO # 0.6 K/uL (0.0-0.8); MONO % 4.5 % (0.0-10.0); NEUT # 11.2 K/uL (1.8-7.0); NEUT % 82.5 % (50.0-75.0); RBC 3.82 Mil/uL (3.80-5.20); RED CELL DISTRIBUTION WIDTH 17.8 % (11.5-14.5); WHITE BLOOD COUNT 13.5 K/uL (4.8-10.8)
[2018-12-28 06:32] LABS: ALB/GLOB RATIO 0.9 (1.0-2.1); ALBUMIN 2.6 g/dL (3.5-5.0)
--- NOTE | 2018-12-28 07:10 | CP.CCUPN ---
<Jerzy Tijerina M - Last Filed: 12/28/18 18:20> CCU Subjective - Physician Review Subjective (Free Text): Critical care progress note for Dr. Soares. Patient seen and examined at bedside. Patient had 2 episodes of non-bloody diarrhea overnight. Patient states her abdomen hurts slightly more than yesterday. Patient denies headaches, vision changes, chest pain, SOB, nausea, vomiting. Patient tolerating clear liquid diet. 12/28/18 18:20 CCU Objective - Vital Signs / Intake & Output Vital Signs (Last 4 hours): Vital Signs Temp Pulse Resp BP Pulse Ox 12/28/18 06:00 100 H 20 96 12/28/18 05:55 102 H 24 136/84 96 12/28/18 05:00 102 H 22 12/28/18 04:55 104 H 26 H 159/84 H 12/28/18 04:00 98.1 F 12/28/18 03:55 106 H 25 H 137/71 Intake and Output (Last 8hrs): Intake & Output 12/27/18 12/28/18 12/28/18 22:59 06:59 14:59 Intake Total 225 600 Output Total 130 400 Balance 95 200 Intake: Intake, IV Amount 225 600 Right Hand 225 600 Output: Urine 130 400 Urethral (Vazquez) 130 400 Other: # Bowel Movements 1 3 - Physical Exam Head: Positive for: Atraumatic, Normocephalic Extroacular Muscles: Positive for: EOMI Conjunctiva: Positive for: Normal Mouth: Positive for: Moist Mucous Membranes Respiratory/Chest: Negative for: Clear to Auscultation, Accessory Muscle Use Abdomen: Positive for: Tenderness (distended, abdominal tenderness through all quads ), Distention, Normal Bowel Sounds Upper Extremity: Positive for: Normal Inspection. Negative for: Edema Lower Extremity: Positive for: Normal Inspection. Negative for: Edema Skin: Positive for: Warm, Dry, Rashes Psychiatric: Positive for: Oriented x 3 - Medications Active Medications: Active Medications Generic Name Dose Route Start Last Admin Trade Name Freq PRN Reason Stop Dose Admin Famotidine 20 mg 12/26/18 10:00 12/27/18 09:28 Pepcid IVP 20 mg DAILY SHIRA Administration Heparin Sodium (Porcine) 5,000 units 12/24/18 10:00 12/27/18 21:28 Heparin SC 5,000 units Q12 SHIRA Administration Metronidazole 500 mg in 100 mls @ 100 mls/hr 12/23/18 16:00 12/27/18 23:11 Flagyl IVPB 100 mls/hr Q8H [facility] Administration Protocol Potassium Chloride 20 meq/ 1,010 mls @ 75 mls/hr 12/26/18 18:15 12/27/18 21:03 Dextrose/Sodium Chloride IV Not Given .[id number] [facility] Influenza Virus Vaccine 60 mcg 12/28/18 11:23 Flucelvax Quad [id number] Syr IM 12/28/18 11:24 .ONCE ONE Insulin Human Regular 0 unit 12/23/18 16:30 12/27/18 21:22 Novolin R SC Not Given ACHS [facility] Protocol Vancomycin HCl 250 mg 12/24/18 10:15 12/27/18 21:28 Vancocin 250mg Capsule PO 250 mg QID SHIRA Administration Venlafaxine HCl 150 mg 12/28/18 10:00 Effexor PO DAILY [facility] - Patient Studies Lab Studies: Microbiology Studies 12/22/18 19:45 Blood Culture - Final Blood NO GROWTH AFTER 5 DAYS Gram Stain - Final TEST NOT PERFORMED 12/22/18 19:10 Blood Culture - Final Blood NO GROWTH AFTER 5 DAYS Gram Stain - Final TEST NOT PERFORMED 12/24/18 09:57 Blood Culture - Preliminary Blood NO GROWTH AFTER 3 DAYS 12/24/18 09:57 Blood Culture - Preliminary Blood NO GROWTH AFTER 3 DAYS Lab Studies 12/28/18 12/28/18 12/27/18 Range/Units 05:52 05:52 21:12 WBC 13.5 H (4.8-10.8) K/uL RBC 3.82 (3.80-5.20) Mil/uL Hgb 9.7 L (11.0-16.0) g/dL Hct 31.1 L (34.0-47.0) % MCV 81.5 (81.0-99.0) fL MCH 25.5 L (27.0-31.0) pg MCHC 31.2 L (33.0-37.0) g/dL RDW 17.8 H (11.5-14.5) % Plt Count 413 H (130-400) K/uL MPV 8.7 (7.2-11.7) fL Neut % (Auto) 82.5 H (50.0-75.0) % Lymph % (Auto) 12.7 L (20.0-40.0) % [place] % (Auto) 4.5 (0.0-10.0) % Eos % (Auto) 0.0 (0.0-4.0) % Baso % (Auto) 0.3 (0.0-2.0) % Neut # (Auto) 11.2 H (1.8-7.0) K/uL Lymph # (Auto) 1.7 (1.0-4.3) K/uL [place] # (Auto) 0.6 (0.0-0.8) K/uL Eos # (Auto) 0.0 (0.0-0.7) K/uL Baso # (Auto) 0.0 (0.0-0.2) K/uL Neutrophils % (Manual) (50-75) % Band Neutrophils % (0-2) % Lymphocytes % (Manual) (20-40) % Monocytes % (Manual) (0-10) % Metamyelocytes % (0-0) % Myelocytes % (0-0) % Toxic Granulation Platelet Estimate (NORMAL) Large Platelets Hypochromasia (manual) Anisocytosis (manual) Sodium 135 (132-148) mmol/L Potassium 4.3 (3.6-5.2) mmol/L Chloride 106 (98-107) mmol/L Carbon Dioxide 24 (22-30) mmol/L Anion Gap 9 L (10-20) BUN 36 H (7-17) mg/dL Creatinine 1.2 (0.7-1.2) mg/dL Est GFR ( Amer) 53 Est GFR (Non-Af Amer) 44 POC Glucose (mg/dL) 148 H (65-110) mg/dL Random Glucose 159 H (65-105) mg/dL Calcium 7.0 L (8.6-10.4) mg/dl Phosphorus 3.4 (2.5-4.5) mg/dL Magnesium 2.3 (1.6-2.3) mg/dL Total Bilirubin 0.6 (0.2-1.3) mg/dL AST 26 (14-36) U/L ALT 19 (9-52) U/L Alkaline Phosphatase 73 (38-126) U/L Total Protein 5.4 L (6.3-8.3) g/dL Albumin 2.6 L (3.5-5.0) g/dL Globulin 2.8 (2.2-3.9) gm/dL Albumin/Globulin Ratio 0.9 L (1.0-2.1) 12/27/18 12/27/18 Range/Units 06:57 06:57 WBC 15.2 H (4.8-10.8) K/uL RBC 3.86 (3.80-5.20) Mil/uL Hgb 9.8 L (11.0-16.0) g/dL Hct 31.0 L (34.0-47.0) % MCV 80.1 L (81.0-99.0) fL MCH 25.2 L (27.0-31.0) pg MCHC 31.5 L (33.0-37.0) g/dL RDW 18.1 H (11.5-14.5) % Plt Count 395 (130-400) K/uL MPV 9.1 (7.2-11.7) fL Neut % (Auto) 87.5 H (50.0-75.0) % Lymph % (Auto) 8.1 L (20.0-40.0) % [place] % (Auto) 4.1 (0.0-10.0) % Eos % (Auto) 0.0 (0.0-4.0) % Baso % (Auto) 0.3 (0.0-2.0) % Neut # (Auto) 13.3 H (1.8-7.0) K/uL Lymph # (Auto) 1.2 (1.0-4.3) K/uL [place] # (Auto) 0.6 (0.0-0.8) K/uL Eos # (Auto) 0.0 (0.0-0.7) K/uL Baso # (Auto) 0.0 (0.0-0.2) K/uL Neutrophils % (Manual) 80 H (50-75) % Band Neutrophils % 9 H (0-2) % Lymphocytes % (Manual) 6 L (20-40) % Monocytes % (Manual) 3 (0-10) % Metamyelocytes % 1 H (0-0) % Myelocytes % 1 H (0-0) % Toxic Granulation Present Platelet Estimate Normal (NORMAL) Large Platelets Present Hypochromasia (manual) Slight Anisocytosis (manual) Slight Sodium 134 (132-148) mmol/L Potassium 3.5 L (3.6-5.2) mmol/L Chloride 100 (98-107) mmol/L Carbon Dioxide 23 (22-30) mmol/L Anion Gap 14 (10-20) BUN 45 H (7-17) mg/dL Creatinine 1.6 H (0.7-1.2) mg/dL Est GFR ( Amer) 38 Est GFR (Non-Af Amer) 31 POC Glucose (mg/dL) (65-110) mg/dL Random Glucose 161 H (65-105) mg/dL Calcium 6.0 L* (8.6-10.4) mg/dl Phosphorus 3.6 (2.5-4.5) mg/dL Magnesium 2.2 (1.6-2.3) mg/dL Total Bilirubin 0.7 (0.2-1.3) mg/dL AST 29 (14-36) U/L ALT 21 (9-52) U/L Alkaline Phosphatase 78 (38-126) U/L Total Protein 5.2 L (6.3-8.3) g/dL Albumin 2.5 L D (3.5-5.0) g/dL Globulin 2.7 (2.2-3.9) gm/dL Albumin/Globulin Ratio 0.9 L (1.0-2.1) Laboratory Results - last 24 hr 12/27/18 12/27/18 12/27/18 06:57 06:57 21:12 WBC 15.2 H RBC 3.86 Hgb 9.8 L Hct 31.0 L MCV 80.1 L MCH 25.2 L MCHC 31.5 L RDW 18.1 H Plt Count 395 MPV 9.1 Neut % (Auto) 87.5 H Lymph % (Auto) 8.1 L [place] % (Auto) 4.1 Eos % (Auto) 0.0 Baso % (Auto) 0.3 Neut # (Auto) 13.3 H Lymph # (Auto) 1.2 [place] # (Auto) 0.6 Eos # (Auto) 0.0 Baso # (Auto) 0.0 Neutrophils % (Manual) 80 H Band Neutrophils % 9 H Lymphocytes % (Manual) 6 L Monocytes % (Manual) 3 Metamyelocytes % 1 H Myelocytes % 1 H Toxic Granulation Present Platelet Estimate Normal Large Platelets Present Hypochromasia (manual) Slight Anisocytosis (manual) Slight Sodium 134 Potassium 3.5 L Chloride 100 Carbon Dioxide 23 Anion Gap 14 BUN 45 H Creatinine 1.6 H Est GFR ( Amer) 38 Est GFR (Non-Af Amer) 31 POC Glucose (mg/dL) 148 H Random Glucose 161 H Calcium 6.0 L* Phosphorus 3.6 Magnesium 2.2 Total Bilirubin 0.7 AST 29 ALT 21 Alkaline Phosphatase 78 Total Protein 5.2 L Albumin 2.5 L D Globulin 2.7 Albumin/Globulin Ratio 0.9 L 12/28/18 12/28/18 05:52 05:52 WBC 13.5 H RBC 3.82 Hgb 9.7 L Hct 31.1 L MCV 81.5 MCH 25.5 L MCHC 31.2 L RDW 17.8 H Plt Count 413 H MPV 8.7 Neut % (Auto) 82.5 H Lymph % (Auto) 12.7 L [place] % (Auto) 4.5 Eos % (Auto) 0.0 Baso % (Auto) 0.3 Neut # (Auto) 11.2 H Lymph # (Auto) 1.7 [place] # (Auto) 0.6 Eos # (Auto) 0.0 Baso # (Auto) 0.0 Neutrophils % (Manual) Band Neutrophils % Lymphocytes % (Manual) Monocytes % (Manual) Metamyelocytes % Myelocytes % Toxic Granulation Platelet Estimate Large Platelets Hypochromasia (manual) Anisocytosis (manual) Sodium 135 Potassium 4.3 Chloride 106 Carbon Dioxide 24 Anion Gap 9 L BUN 36 H Creatinine 1.2 Est GFR ( Amer) 53 Est GFR (Non-Af Amer) 44 POC Glucose (mg/dL) Random Glucose 159 H Calcium 7.0 L Phosphorus 3.4 Magnesium 2.3 Total Bilirubin 0.6 AST 26 ALT 19 Alkaline Phosphatase 73 Total Protein 5.4 L Albumin 2.6 L Globulin 2.8 Albumin/Globulin Ratio 0.9 L Fingerstick Blood Sugar Results: 167 Review of Systems - Constitutional Constitutional: absent: Fever, Chills, Sweats - EENT Eyes: UNREMARKABLE. absent: Blurred Vision, Discharge Ears: UNREMARKABLE Nose/Mouth/Throat: UNREMARKABLE. absent: Nose Pain - Cardiovascular Cardiovascular: UNREMARKABLE. absent: Chest Pain, Chest Pain at Rest - Respiratory Respiratory: UNREMARKABLE. absent: Dyspnea, Dyspnea on Exertion - Gastrointestinal Gastrointestinal: Abdominal Pain, Diarrhea, UNREMARKABLE - Genitourinary Genitourinary: UNREMARKABLE. absent: Change in Urinary Stream - Musculoskeletal Musculoskeletal: UNREMARKABLE. absent: Arthralgias, Joint Swelling - Integumentary Integumentary: UNREMARKABLE - Neurological Neurological: UNREMARKABLE. absent: Headaches - Psychiatric Psychiatric: UNREMARKABLE. absent: Confusion, Depression Critical Care Progress Note - Prophylaxis GI Prophylaxis GI: Pepsid - Prophylaxis DVT Prophylaxis DVT: Not Indicated - Nutrition Nutrition: Nutrition Category Date Time Status Liquid Diet [DIET] Diets 12/26/18 Breakfast Active Assessment/Plan - Assessment and Plan (Free Text) Assessment: 73 F w/ PMhx CHF, CKD, Afib presented to hospital elevated digoxin level, low hemoglobin, transferred to ICU for sepsis, elevated leukocytosis, and distended abdomen. Patient is C. diff positive, on contact isolation ( was previously on kaflex for dental infection & ceftriaxone). Patient is improving, with WBC downtrending, afebrile > 24H, H/H stable. Patient has improving acute w/ chronic renal failure Patient is more awake, responsive. Patient producing about 40 cc/hr. Repeat abx xray indicating dilated bowel, tolerating clear liquid diet. 1) Colitis secondary to C. diff 2) Acute anemia 3) Sepsis 4) Acute on chronic renal failure 5) paroxysmal afib Plan: Neuro - A&O x 3 Cardio - vitals WNL - hx of afib, chx - restart eliquis 2.5 BID - repeat EKG, sinus tachycardia Pulm - vitals WNL - continue to monitor GI - colitis - C. diff positive - stool occult +, monitor H/H due to resumption of eliquis - flagyl & vancomyicin ( see below) - d/c vazquez Heme - H/H stable, continue to monitor due to resumption of eliquis - WBC downtrending, now to 15 - afebrile >48 Hr, Lactate wnl - U/C negative, Blood cultures negative - C. diff positive - c/w vancomyocin 250mg PO QID, flagyl 500 mg IVPB Q8H - Florastor TID Endo - BS 150s - ISS - hypoglycemia protocol Renal - Elevated BUN/Cr 36/1.2 - Acute on chronic renal failure improving - D5 NS 75 cc/hr - replenish electrolytes PPx - DVT: Heparin 5000 units Q12 - GI: Pepcid 20mg IVP daily <LatefKeagan M - Last Filed: 12/29/18 08:06> CCU Objective - Vital Signs / Intake & Output Vital Signs (Last 4 hours): Vital Signs Temp Pulse Resp BP Pulse Ox 12/29/18 07:00 92 H 21 98 12/29/18 06:13 95 H 24 151/83 H 100 12/29/18 06:00 96 H 26 H 97 12/29/18 05:14 95 H 25 H 143/58 L 100 12/29/18 05:00 98.1 F 95 H 23 99 12/29/18 04:14 92 H 24 141/74 99 Intake and Output (Last 8hrs): Intake & Output 12/28/18 12/29/18 12/29/18 22:59 06:59 14:59 Intake Total 550 625 75 Output Total 400 Balance 550 225 75 Intake: Intake, IV Amount 400 625 75 Right Hand 400 625 75 Oral 150 Output: Urine 400 Urethral (Vazquez) 400 Other: # Bowel Movements 1 1 - Medications Active Medications: Active Medications Generic Name Dose Route Start Last Admin Trade Name Josafat PRN Reason Stop Dose Admin Apixaban 2.5 mg 12/28/18 11:45 12/28/18 21:19 Eliquis PO 2.5 mg Q12 SHIRA Administration Aspirin 81 mg 12/28/18 12:15 12/28/18 12:19 Ecotrin PO 81 mg DAILY SHIRA Administration Famotidine 20 mg 12/26/18 10:00 12/28/18 09:30 Pepcid IVP 20 mg DAILY [facility]A Administration Metronidazole 500 mg in 100 mls @ 100 mls/hr 12/23/18 16:00 12/29/18 07:43 Flagyl IVPB 100 mls/hr Q8H [facility] Administration Protocol Potassium Chloride 20 meq/ 1,010 mls @ 75 mls/hr 12/26/18 18:15 12/29/18 00:33 Dextrose/Sodium Chloride IV Not Given .[id number] [facility]IRA Insulin Human Regular 0 unit 12/23/18 16:30 12/29/18 07:44 Novolin R SC 1 units ACHS [facility]A Administration Protocol Metoprolol Succinate 12.5 mg 12/28/18 11:00 12/28/18 11:21 Toprol Xl PO 12.5 mg DAILY SHIRA Administration Mirtazapine 30 mg 12/28/18 22:00 12/28/18 21:19 Remeron PO 30 mg HS SHIRA Administration Vancomycin HCl 250 mg 12/24/18 10:15 12/28/18 21:19 Vancocin 250mg Capsule PO 250 mg QID [facility]A Administration Venlafaxine HCl 150 mg 12/28/18 10:00 12/28/18 09:30 Effexor PO 150 mg DAILY [facility] Administration Zolpidem Tartrate 5 mg 12/28/18 15:03 Ambien PO HS PRN Insomnia - Patient Studies Lab Studies: Microbiology Studies 12/24/18 09:57 Blood Culture - Preliminary Blood NO GROWTH AFTER 4 DAYS 12/24/18 09:57 Blood Culture - Preliminary Blood NO GROWTH AFTER 4 DAYS Lab Studies 12/29/18 12/29/18 12/28/18 Range/Units 05:35 05:35 21:04 WBC 10.9 H (4.8-10.8) K/uL RBC 4.17 (3.80-5.20) Mil/uL Hgb 10.7 L (11.0-16.0) g/dL Hct 34.2 (34.0-47.0) % MCV 82.0 (81.0-99.0) fL MCH 25.7 L (27.0-31.0) pg MCHC 31.4 L (33.0-37.0) g/dL RDW 17.9 H (11.5-14.5) % Plt Count 414 H (130-400) K/uL MPV 8.6 (7.2-11.7) fL Neut % (Auto) 78.9 H (50.0-75.0) % Lymph % (Auto) 16.4 L (20.0-40.0) % [place] % (Auto) 4.0 (0.0-10.0) % Eos % (Auto) 0.1 (0.0-4.0) % Baso % (Auto) 0.6 (0.0-2.0) % Neut # (Auto) 8.6 H (1.8-7.0) K/uL Lymph # (Auto) 1.8 (1.0-4.3) K/uL [place] # (Auto) 0.4 (0.0-0.8) K/uL Eos # (Auto) 0.0 (0.0-0.7) K/uL Baso # (Auto) 0.1 (0.0-0.2) K/uL Sodium 135 (132-148) mmol/L Potassium 4.3 (3.6-5.2) mmol/L Chloride 108 H (98-107) mmol/L Carbon Dioxide 22 (22-30) mmol/L Anion Gap 9 L (10-20) BUN 24 H (7-17) mg/dL Creatinine 0.9 (0.7-1.2) mg/dL Est GFR ( Amer) > 60 Est GFR (Non-Af Amer) > 60 POC Glucose (mg/dL) 128 H (65-110) mg/dL Random Glucose 134 H (65-105) mg/dL Calcium 7.1 L (8.6-10.4) mg/dl Phosphorus 2.9 (2.5-4.5) mg/dL Magnesium 2.2 (1.6-2.3) mg/dL Total Bilirubin 0.6 (0.2-1.3) mg/dL AST 25 (14-36) U/L ALT 11 (9-52) U/L Alkaline Phosphatase 71 (38-126) U/L Total Protein 5.2 L (6.3-8.3) g/dL Albumin 2.5 L (3.5-5.0) g/dL Globulin 2.6 (2.2-3.9) gm/dL Albumin/Globulin Ratio 1.0 (1.0-2.1) 12/28/18 12/28/18 12/27/18 Range/Units 16:13 11:15 21:12 WBC (4.8-10.8) K/uL RBC (3.80-5.20) Mil/uL Hgb (11.0-16.0) g/dL Hct (34.0-47.0) % MCV (81.0-99.0) fL MCH (27.0-31.0) pg MCHC (33.0-37.0) g/dL RDW (11.5-14.5) % Plt Count (130-400) K/uL MPV (7.2-11.7) fL Neut % (Auto) (50.0-75.0) % Lymph % (Auto) (20.0-40.0) % [place] % (Auto) (0.0-10.0) % Eos % (Auto) (0.0-4.0) % Baso % (Auto) (0.0-2.0) % Neut # (Auto) (1.8-7.0) K/uL Lymph # (Auto) (1.0-4.3) K/uL [place] # (Auto) (0.0-0.8) K/uL Eos # (Auto) (0.0-0.7) K/uL Baso # (Auto) (0.0-0.2) K/uL Sodium (132-148) mmol/L Potassium (3.6-5.2) mmol/L Chloride (98-107) mmol/L Carbon Dioxide (22-30) mmol/L Anion Gap (10-20) BUN (7-17) mg/dL Creatinine (0.7-1.2) mg/dL Est GFR ( Amer) Est GFR (Non-Af Amer) POC Glucose (mg/dL) 176 H 173 H 148 H (65-110) mg/dL Random Glucose (65-105) mg/dL Calcium (8.6-10.4) mg/dl Phosphorus (2.5-4.5) mg/dL Magnesium (1.6-2.3) mg/dL Total Bilirubin (0.2-1.3) mg/dL AST (14-36) U/L ALT (9-52) U/L Alkaline Phosphatase (38-126) U/L Total Protein (6.3-8.3) g/dL Albumin (3.5-5.0) g/dL Globulin (2.2-3.9) gm/dL Albumin/Globulin Ratio (1.0-2.1) Laboratory Results - last 24 hr 12/27/18 12/28/18 12/28/18 21:12 11:15 16:13 WBC RBC Hgb Hct MCV MCH MCHC RDW Plt Count MPV Neut % (Auto) Lymph % (Auto) [place] % (Auto) Eos % (Auto) Baso % (Auto) Neut # (Auto) Lymph # (Auto) [place] # (Auto) Eos # (Auto) Baso # (Auto) Sodium Potassium Chloride Carbon Dioxide Anion Gap BUN Creatinine Est GFR ( Amer) Est GFR (Non-Af Amer) POC Glucose (mg/dL) 148 H 173 H 176 H Random Glucose Calcium Phosphorus Magnesium Total Bilirubin AST ALT Alkaline Phosphatase Total Protein Albumin Globulin Albumin/Globulin Ratio 12/28/18 12/29/18 12/29/18 21:04 05:35 05:35 WBC 10.9 H RBC 4.17 Hgb 10.7 L Hct 34.2 MCV 82.0 MCH 25.7 L MCHC 31.4 L RDW 17.9 H Plt Count 414 H MPV 8.6 Neut % (Auto) 78.9 H Lymph % (Auto) 16.4 L [place] % (Auto) 4.0 Eos % (Auto) 0.1 Baso % (Auto) 0.6 Neut # (Auto) 8.6 H Lymph # (Auto) 1.8 [place] # (Auto) 0.4 Eos # (Auto) 0.0 Baso # (Auto) 0.1 Sodium 135 Potassium 4.3 Chloride 108 H Carbon Dioxide 22 Anion Gap 9 L BUN 24 H Creatinine 0.9 Est GFR ( Amer) > 60 Est GFR (Non-Af Amer) > 60 POC Glucose (mg/dL) 128 H Random Glucose 134 H Calcium 7.1 L Phosphorus 2.9 Magnesium 2.2 Total Bilirubin 0.6 AST 25 ALT 11 Alkaline Phosphatase 71 Total Protein 5.2 L Albumin 2.5 L Globulin 2.6 Albumin/Globulin Ratio 1.0 Radiology Impressions: Radiology Impressions Abdomen X-Ray 12/28/18 09:50 IMPRESSION: No evidence of bowel obstruction. EKG/Cardiology Studies: Cardiology / EKG Studies 12/28/18 09:54 EKG [ELECTROCARDIOGRAM] Routine Comment: Mode Of Transportation: Reason For Exam: Tachycardia Isolation: Special Contact Critical Care Progress Note - Nutrition Nutrition: Nutrition Category Date Time Status Liquid Diet [DIET] Diets 12/26/18 Breakfast Active Attending/Attestation - Attestation I have personally seen and examined this patient.: Yes I have fully participated in the care of the patient.: Yes I have reviewed all pertinent clinical information: Yes Notes (Text): Today: Friday, December 28, 2018 The Patient was seen and examined at the bedside, Medical records reviewed, and management issues were discussed and formulated with the house staff. I have reviewed all the relevant clinical, laboratory, hemodynamic, radiographic data and medications Events reviewed Pain issues, skin care, head of the bed elevation, glycemic control were addressed. Agree with above resident's assessment and treatment plans of care as transcribed in Dr. Tijerina's note.
[2018-12-28] MEDS: (Novolin R) Insulin Human Regular 100 units/ml vial SC SCH ×4 (07:54→21:06)
[2018-12-28] MEDS: metroNIDAZOLE IV 500 mg/100 ml 500 MG/100 ML BAG IVPB SCH ×2 (07:55→16:18)
[2018-12-28] MEDS: Vancomycin Hydrochloride 250 mg Capsule (Oral) PO SCH ×4 (09:14→21:19)
--- NOTE | 2018-12-28 10:47 | CP.PCM.PN ---
Subjective - Date & Time of Evaluation Date of Evaluation: 12/28/18 Time of Evaluation: 10:45 - Subjective Subjective: pt still in icu still has diarhea watery no pain Objective - Vital Signs/Intake and Output Vital Signs (last 24 hours): Temp Pulse Resp BP Pulse Ox 97.7 F 99 H 22 142/84 97 12/28/18 08:00 12/28/18 07:55 12/28/18 07:55 12/28/18 07:55 12/28/18 08:00 Intake and Output: 12/28/18 12/28/18 06:59 18:59 Intake Total 825 175 Output Total 420 Balance 405 175 - Medications Medications: Current Medications Famotidine (Pepcid) 20 mg IVP DAILY [facility] Last Admin: 12/28/18 09:30 Dose: 20 mg Heparin Sodium (Porcine) (Heparin) 5,000 units SC Q12 [facility] Last Admin: 12/28/18 09:16 Dose: 5,000 units Metronidazole (Flagyl) 500 mg in 100 mls @ 100 mls/hr IVPB Q8H [facility]; Protocol Last Admin: 12/28/18 07:55 Dose: 100 mls/hr Potassium Chloride 20 meq/ (Dextrose/Sodium Chloride) 1,010 mls @ 75 mls/hr IV .[id number] [facility] Last Admin: 12/27/18 21:03 Dose: Not Given Influenza Virus Vaccine (Flucelvax Quad [id number] Syr) 60 mcg IM .ONCE ONE Stop: 12/28/18 11:24 Insulin Human Regular (Novolin R) 0 unit SC ACHS [facility]; Protocol Last Admin: 12/28/18 07:54 Dose: 1 units Vancomycin HCl (Vancocin 250mg Capsule) 250 mg PO QID [facility] Last Admin: 12/28/18 09:14 Dose: 250 mg Venlafaxine HCl (Effexor) 150 mg PO DAILY [facility] Last Admin: 12/28/18 09:30 Dose: 150 mg - Labs Labs: 12/28/18 05:52 12/28/18 05:52 PT 22.6 SECONDS (9.7-12.2) H D 12/24/18 14:57 INR 2.1 D 12/24/18 14:57 APTT 33 SECONDS (21-34) 12/24/18 14:57 - Constitutional Appears: Non-toxic - Head Exam Head Exam: ATRAUMATIC - Eye Exam Eye Exam: Normal appearance Pupil Exam: NORMAL ACCOMODATION - ENT Exam ENT Exam: Mucous Membranes Moist - Neck Exam Neck Exam: Full ROM - Respiratory Exam Respiratory Exam: Clear to Ausculation Bilateral - Cardiovascular Exam Cardiovascular Exam: REGULAR RHYTHM - GI/Abdominal Exam GI & Abdominal Exam: Tenderness, Normal Bowel Sounds - Rectal Exam Additional comments: small laceration perinal - Extremities Exam Extremities Exam: Normal Inspection - Back Exam Back Exam: NORMAL INSPECTION - Neurological Exam Neurological Exam: Alert, Oriented x3 - Psychiatric Exam Psychiatric exam: Depressed - Skin Skin Exam: Pallor Assessment and Plan - Assessment and Plan (Free Text) Assessment: ac cdef infection aneamia htn tachycardia depressin Plan: as per orders
[2018-12-28] MEDS: Metoprolol Succinate 12.5 mg XL Tab PO SCH (11:21)
[2018-12-28] MEDS ORDERED: Influenza Vaccine 60 mcg/0.5 mL SYR (4YR UP) IM ONE (11:23)
--- NOTE | 2018-12-28 11:50 | RAD ---
Date of service: 12/28/2018 HISTORY: c.diff,distended abd COMPARISON: 12/26/2018 FINDINGS: BOWEL: Mildly distended of what is likely large bowel the mid right abdomen, grossly unchanged from the previous examination. No evidence of mechanical bowel obstruction. No hepatic or splenic enlargement. No masses or abnormal calcifications. BONES: Left total hip replacement. Status post ORIF right hip. OTHER FINDINGS: None. IMPRESSION: No evidence of bowel obstruction.
--- NOTE | 2018-12-28 12:01 | CP.PCM.PN ---
Subjective - Date & Time of Evaluation Date of Evaluation: 12/28/18 Time of Evaluation: 11:59 - Subjective Subjective: Multiple mucoid BMs today, D/W RN On Vanco/Flagyl Labwork improving KUB without megacolon Objective - Vital Signs/Intake and Output Vital Signs (last 24 hours): Temp Pulse Resp BP Pulse Ox 97.7 F 99 H 22 142/84 97 12/28/18 08:00 12/28/18 07:55 12/28/18 07:55 12/28/18 07:55 12/28/18 08:00 Intake and Output: 12/28/18 12/28/18 06:59 18:59 Intake Total 825 175 Output Total 420 Balance 405 175 - Medications Medications: Current Medications Apixaban (Eliquis) 2.5 mg PO Q12H [facility] Aspirin (Ecotrin) 81 mg PO DAILY [facility] Famotidine (Pepcid) 20 mg IVP DAILY [facility] Last Admin: 12/28/18 09:30 Dose: 20 mg Metronidazole (Flagyl) 500 mg in 100 mls @ 100 mls/hr IVPB Q8H [facility]; Protocol Last Admin: 12/28/18 07:55 Dose: 100 mls/hr Potassium Chloride 20 meq/ (Dextrose/Sodium Chloride) 1,010 mls @ 75 mls/hr IV .[id number] [facility] Last Admin: 12/27/18 21:03 Dose: Not Given Insulin Human Regular (Novolin R) 0 unit SC ACHS [facility]; Protocol Last Admin: 12/28/18 07:54 Dose: 1 units Metoprolol Succinate (Toprol Xl) 12.5 mg PO DAILY [facility] Last Admin: 12/28/18 11:21 Dose: 12.5 mg Vancomycin HCl (Vancocin 250mg Capsule) 250 mg PO QID [facility] Last Admin: 12/28/18 09:14 Dose: 250 mg Venlafaxine HCl (Effexor) 150 mg PO DAILY [facility] Last Admin: 12/28/18 09:30 Dose: 150 mg - Labs Labs: 12/28/18 05:52 12/28/18 05:52 PT 22.6 SECONDS (9.7-12.2) H D 12/24/18 14:57 INR 2.1 D 12/24/18 14:57 APTT 33 SECONDS (21-34) 12/24/18 14:57 - Constitutional Appears: Chronically Ill - Head Exam Head Exam: NORMOCEPHALIC - Respiratory Exam Respiratory Exam: NORMAL BREATHING PATTERN - Cardiovascular Exam Cardiovascular Exam: REGULAR RHYTHM - GI/Abdominal Exam GI & Abdominal Exam: Distended, Soft, Tenderness, Hyperactive Bowel Sounds Assessment and Plan (1) Clostridium difficile colitis Assessment & Plan: Complicated, but gradually improving. Without signs of megacolon or toxicity Continue current medical regimen Status: Acute
[2018-12-28] MEDS: Potassium Chloride 20 MEQ in Dextrose 5%/0.9% NS 1,000 ML IV SCH (12:20)
--- NOTE | 2018-12-28 14:12 | CP.PCM.PN ---
Subjective - Date & Time of Evaluation Date of Evaluation: 12/28/18 Time of Evaluation: 14:12 - Subjective Subjective: Nephrology Consultation Note: Assessment: stablel Acute Kidney Injury (N17.9) likely due to ATN due to sepsis, IV contrast C.Diff colitis, hagma with respi compensation, hyponatremia hypocalcemia Diabetic chronic Kidney Disease (E11.22) Hypertensive Chronic Kidney Disease (I12.9) Chronic Kidney Disease (N18.3) Stage 3 with ? mg proteinuria (R80.9) Anemia (D64.9) hx of dig toxicity, A fib, CVA, hypothyroidism left adrenal nodule Plan No acute need for renal replacement therapy at this time. renal function improving Hypertension control with meds as ordered. Maintain hemodynamics stable. Avoid hypotension. Patient not on ACEI/ARB due to recent LOUIE Monitor Input/Output, daily weights and renal function with basic metabolic p rosalva supplement lytes as needed left adrenal nodule work up as outpt Dose meds/antibiotics for improved GFR. Glycemic control Further work up/management as per primary team Thanks for allowing me to participate in care of your patient. Will follow patient with you. Please call if any Qs. had d/w team Dr Raghu Solis Office: [phone] Chief Complaint; pain abdomen Reason for consult: Acute Kidney Injury HPI: Pt is a 73 F with hx of diabetes Mellitus ( years), hypertension (years) CKD 3 with baseline cr 1.2-1.4, hx of dig toxicity, A fib, CVA, hypothyroidism presented with complaints of pain abdomen and being managed for sepsis, colitis, transferred to ICU Denies OTC/herbal meds or NSAIDs Noted recent iodinated contrast exposure. Noted obvious episodes of low BP (99/61). pt not aware about kidney disease in past ROS: Cardiovascular: No chest pain. Pulmonary: No shortness of breath Gastrointestinal: improved abdominal pain No nausea. No vomiting. Genitourinary: No pain while urinating. Denies blood in urine. All other negative except as mentioned in HPI Physical Examination: General Appearance: comfortable, in no acute respiratory distress, co-operative . better appearing Vitals reviewed and noted as below Head; Atraumatic, normocephalic ENT: no ulcers no thrush. Tongue is midline. Oropharynx: no rash or ulcers. EYES: Pupils are equal, round and reactive to light accommodation. Eye muscles and extraocular movement intact. Sclera is anicteric. Neck; supple no lymphadenopathy, no thyromegaly or bruit Lungs: Normal respiratory rate/effort. Breath sounds bilateral equal and clear Heart: normal rate. s1s2 normal. No rub or gallop. Extremities: no edema. No varicose veins Neurological: Patient is alert, awake No focal deficit. Strength bilateral appropriate and equal. confused Skin: Warm and dry. Normal turgor. No rash. Palpitation: Normal elasticity for age Abdomen: Abdomen is soft. Bowel sounds +. There is distension with abdominal tenderness, no guarding/rigidity no organomegaly Psych: limited insight and normal affect/mood MSK: no joint tenderness or swelling. Digits and nails normal, no deformity : kidney or bladder not palpable Labs/imaging reviewed. Past medical history, past surgical history, family history, social history, allergy reviewed and noted as below Family hx: no hx of CKD. Rest non-contributory Objective - Vital Signs/Intake and Output Vital Signs (last 24 hours): Temp Pulse Resp BP Pulse Ox 97.7 F 99 H 22 142/84 97 12/28/18 08:00 12/28/18 07:55 12/28/18 07:55 12/28/18 07:55 12/28/18 08:00 Intake and Output: 12/28/18 12/28/18 06:59 18:59 Intake Total 825 175 Output Total 420 Balance 405 175 - Medications Medications: Current Medications Apixaban (Eliquis) 2.5 mg PO Q12 [facility] Last Admin: 12/28/18 12:19 Dose: 2.5 mg Aspirin (Ecotrin) 81 mg PO DAILY [facility] Last Admin: 12/28/18 12:19 Dose: 81 mg Famotidine (Pepcid) 20 mg IVP DAILY [facility] Last Admin: 12/28/18 09:30 Dose: 20 mg Metronidazole (Flagyl) 500 mg in 100 mls @ 100 mls/hr IVPB Q8H [facility]; Protocol Last Admin: 12/28/18 07:55 Dose: 100 mls/hr Potassium Chloride 20 meq/ (Dextrose/Sodium Chloride) 1,010 mls @ 75 mls/hr IV .[id number] [facility] Last Admin: 12/28/18 12:20 Dose: 75 mls/hr Insulin Human Regular (Novolin R) 0 unit SC [facility]; Protocol Last Admin: 12/28/18 12:19 Dose: 1 units Metoprolol Succinate (Toprol Xl) 12.5 mg PO DAILY [facility] Last Admin: 12/28/18 11:21 Dose: 12.5 mg Vancomycin HCl (Vancocin 250mg Capsule) 250 mg PO QID [facility] Last Admin: 12/28/18 13:00 Dose: 250 mg Venlafaxine HCl (Effexor) 150 mg PO DAILY [facility] Last Admin: 12/28/18 09:30 Dose: 150 mg - Labs Labs: 12/28/18 05:52 12/28/18 05:52 PT 22.6 SECONDS (9.7-12.2) H D 12/24/18 14:57 INR 2.1 D 12/24/18 14:57 APTT 33 SECONDS (21-34) 12/24/18 14:57
--- NOTE | 2018-12-28 19:05 | CP.PCM.PN ---
Subjective - Date & Time of Evaluation Date of Evaluation: 12/28/18 Time of Evaluation: 08:00 - Subjective Subjective: slow progress cont rx c diff Objective - Vital Signs/Intake and Output Vital Signs (last 24 hours): Temp Pulse Resp BP Pulse Ox 97.7 F 92 H 22 144/66 99 12/28/18 08:00 12/28/18 16:13 12/28/18 16:13 12/28/18 16:13 12/28/18 16:13 Intake and Output: 12/28/18 12/29/18 18:59 06:59 Intake Total 1075 Output Total 200 Balance 875 - Medications Medications: Current Medications Apixaban (Eliquis) 2.5 mg PO Q12 [facility] Last Admin: 12/28/18 12:19 Dose: 2.5 mg Aspirin (Ecotrin) 81 mg PO DAILY [facility] Last Admin: 12/28/18 12:19 Dose: 81 mg Famotidine (Pepcid) 20 mg IVP DAILY [facility] Last Admin: 12/28/18 09:30 Dose: 20 mg Metronidazole (Flagyl) 500 mg in 100 mls @ 100 mls/hr IVPB Q8H [facility]; Protocol Last Admin: 12/28/18 16:18 Dose: 100 mls/hr Potassium Chloride 20 meq/ (Dextrose/Sodium Chloride) 1,010 mls @ 75 mls/hr IV .[id number] [facility] Last Admin: 12/28/18 12:20 Dose: 75 mls/hr Insulin Human Regular (Novolin R) 0 unit SC ACHS [facility]; Protocol Last Admin: 12/28/18 16:18 Dose: 1 units Metoprolol Succinate (Toprol Xl) 12.5 mg PO DAILY [facility] Last Admin: 12/28/18 11:21 Dose: 12.5 mg Mirtazapine (Remeron) 30 mg PO HS [facility] Vancomycin HCl (Vancocin 250mg Capsule) 250 mg PO QID [facility] Last Admin: 12/28/18 18:00 Dose: 250 mg Venlafaxine HCl (Effexor) 150 mg PO DAILY [facility] Last Admin: 12/28/18 09:30 Dose: 150 mg Zolpidem Tartrate (Ambien) 5 mg PO HS PRN PRN Reason: Insomnia - Labs Labs: 12/28/18 05:52 12/28/18 05:52 PT 22.6 SECONDS (9.7-12.2) H D 12/24/18 14:57 INR 2.1 D 12/24/18 14:57 APTT 33 SECONDS (21-34) 12/24/18 14:57 - Constitutional Appears: No Acute Distress, Confused, Cachectic, Chronically Ill - Head Exam Head Exam: ATRAUMATIC, NORMAL INSPECTION, NORMOCEPHALIC - Eye Exam Eye Exam: EOMI, Normal appearance, PERRL Pupil Exam: NORMAL ACCOMODATION, PERRL - ENT Exam ENT Exam: Mucous Membranes Moist, Normal Exam - Neck Exam Neck Exam: Full ROM, Normal Inspection. absent: Lymphadenopathy - Respiratory Exam Respiratory Exam: Clear to Ausculation Bilateral, NORMAL BREATHING PATTERN - Cardiovascular Exam Cardiovascular Exam: REGULAR RHYTHM, +S1, +S2. absent: Murmur - GI/Abdominal Exam GI & Abdominal Exam: Distended, Guarding, Tenderness, Hyperactive Bowel Sounds - Rectal Exam Rectal Exam: NORMAL INSPECTION - Exam Exam: Circumcision, NORMAL INSPECTION External exam: NORMAL EXTERNAL EXAM Speculum exam: NORMAL SPECULUM EXAM Bimanual exam: NORMAL BIMANUAL EXAM - Extremities Exam Extremities Exam: Full ROM, Normal Capillary Refill, Normal Inspection. absent: Joint Swelling, Pedal Edema - Back Exam Back Exam: NORMAL INSPECTION - Neurological Exam Neurological Exam: Alert, Awake, CN II-XII Intact, Normal Gait, Oriented x3 - Psychiatric Exam Psychiatric exam: Normal Affect, Normal Mood - Skin Skin Exam: Dry, Intact, Normal Color, Warm Assessment and Plan (1) Abdominal pain Status: Acute (2) Colitis Status: Acute (3) Sepsis Status: Acute (4) Depressed Status: Acute (5) Renal insufficiency Status: Acute (6) Change in mental status Status: Chronic (7) Dementia Status: Chronic (8) LOUIE (acute kidney injury) Status: Resolved (9) Atrial fibrillation with RVR Status: Resolved (10) Congestive cardiac failure Status: Resolved (11) Renal insufficiency Status: Resolved (12) CVA (cerebral vascular accident) Status: Ruled-out (13) Seizures Status: Ruled-out - Assessment and Plan (Free Text) Assessment: imrpoving sepsis/ cdiff poor prognosis
--- NOTE | 2018-12-28 23:43 | PN ---
DATE: 12/28/2018 SUBJECTIVE: The patient's abdominal pain improved. There are short paroxysms of atrial fibrillation. PHYSICAL EXAMINATION: VITAL SIGNS: Blood pressure 144/66, heart rate 92, temperature 97.7, respirations 20. HEENT: Pale conjunctivae. CHEST: Clear. HEART: S1, S2 regular. ABDOMEN: Soft. EXTREMITIES: No edema. LABORATORY DATA: SMA-7: Sodium 135, potassium 4.3, chloride 104, CO2 24, glucose 159, BUN 36, creatinine 1.2. Hemoglobin and hematocrit 9.7 and 31.1, white count 13.5, platelet count 415,000. Today's EKG revealed sinus tachycardia at the rate of 101. Today's abdominal x-ray, no evidence of bowel obstruction. ASSESSMENT: 1. Clostridium difficile colitis. 2. History of paroxysmal atrial fibrillation. 3. Improving renal insufficiency. 4. Hypocalcemia. 5. Mild anemia. RECOMMENDATIONS: Continue aspirin 81 mg once a day, Eliquis was started today at 2.5 mg twice a day. Continue IV Flagyl 500 mg every 8 hours. Continue intravenous potassium chloride replacement with D5 normal saline 75 mL an hour. Continue Toprol-XL 12.5 mg once a day, oral vancomycin at 250 mg b.i.d. Sukhdev Dave MD
[2018-12-29] MEDS: metroNIDAZOLE IV 500 mg/100 ml 500 MG/100 ML BAG IVPB SCH ×3 (00:30→16:28)
[2018-12-29] MEDS: Potassium Chloride 20 MEQ in Dextrose 5%/0.9% NS 1,000 ML IV SCH ×2 (00:33→17:40)
--- NOTE | 2018-12-29 04:30 | CON ---
DATE: 12/28/2018 PSYCHIATRIC CONSULTATION CHIEF COMPLAINT AND REASON FOR CONSULTATION: The patient was referred by Dr. Vasquez. The patient has a long history of depression and anxiety. The patient is well known to me, had been my patient for quite a while. The patient was maintained as an outpatient on Remeron 45 mg at bedtime, Effexor 150 mg daily, and Ambien 10 mg at bedtime. The patient is only taking Effexor at this time. HISTORY OF PRESENT ILLNESS: This is a case of a 73-year-old female who was admitted here for nausea, vomiting, and abdominal pain. The patient was diagnosed of sepsis, colitis, and abdominal pain. The patient is currently in ICU. The patient was referred comanagement for her medications for depression. Has a long history of depression and anxiety. The patient had been admitted in [facility] in Geropsychiatric Unit in the past for depression after of her relatives, one brother. The patient has been coming to my office for her medications. At baseline, she was given Remeron 45 mg at bedtime, Ambien 10 mg, and Effexor 150 mg daily. The patient has been compliant with meds. She has been eating and sleeping well. The patient is currently in ICU for other medical problems. Nurse told me that the family is asking about her psych medications if it was given to her or not. The patient's family is concerned she will get depressed. PAST PSYCHIATRIC HISTORY: Long history of depression and anxiety related to the of her relatives. She has been on Remeron, Effexor, and Ambien. No suicidal history. MEDICAL HISTORY: The patient has a history of UTI, congestive heart failure, atrial fibrillation, history of sepsis, C. difficile colitis, acute kidney injury, history of delirium. DRUG AND ALCOHOL HISTORY: Denies any. ALLERGIES: NO KNOWN ALLERGIES. PSYCHOSOCIAL HISTORY: The patient lives with her brother. MEDICATIONS: The patient's current medications include Effexor 150 mg daily, Ecotrin, Eliquis, Flagyl, Novolin, Pepcid, Toprol, and vancomycin. PHYSICAL EXAMINATION: VITAL SIGNS: Temperature 97.7, pulse 99, respirations 22, and oxygen saturation 96%. REVIEW OF SYSTEMS: GENERAL: The patient is alert, verbal. Feels weak. Seen in ICU room #2 with staff. SKIN: No pruritus. HEENT: No headache. No dizziness. NECK: Supple. RESPIRATORY: No dyspnea. CARDIOVASCULAR: No chest pain. GASTROINTESTINAL: According to the staff, she is not eating well. EXTREMITIES: Moving extremities. NEUROLOGIC: Alert and oriented x3. GENITOURINARY: No dysuria. MENTAL STATUS EXAMINATION: An elderly female about 5 feet 1 inch, weighs 167 pounds. Seen in the ICU. Mood is dysphoric, depressed. Affect is restricted. Speech is slow. Thought process coherent. Thought content, no overt psychosis. No suicidal or homicidal ideation. Attention and memory seem to be limited. Insight and judgment limited. Impulse control is fair at this time. IMPRESSION: History of recurrent depression and anxiety as well as colitis and sepsis. PLAN AND RECOMMENDATIONS: The patient is seen. Meds are reviewed. May continue the Effexor which is venlafaxine 150 mg daily. We will start Remeron (mirtazapine) 30 mg at bedtime; we will not put her back at 45 mg. We will start with a lower dose especially with the patient's medical issues and then may have Ambien 5 mg at bedtime p.r.n. Once the patient is more medically stable, we can transition her from Remeron 30 mg to 45 mg which she will use for maintenance dose, but for now, we will keep her in the lower dose of Remeron, as Remeron can also cause a side effect and lower her blood pressure. Alexandre Kumari MD
[2018-12-29 05:42] LABS: BASO # 0.1 K/uL (0.0-0.2); BASO % 0.6 % (0.0-2.0); EOS % 0.1 % (0.0-4.0); HEMOGLOBIN 10.7 g/dL (11.0-16.0); LYMPH # 1.8 K/uL (1.0-4.3); LYMPH % 16.4 % (20.0-40.0); MEAN CORPUSCULAR HEMOGLOBIN 25.7 pg (27.0-31.0); MEAN CORPUSCULAR HGB CONC 31.4 g/dL (33.0-37.0); MEAN PLATELET VOLUME 8.6 fL (7.2-11.7); MONO # 0.4 K/uL (0.0-0.8); NEUT # 8.6 K/uL (1.8-7.0); NEUT % 78.9 % (50.0-75.0); RBC 4.17 Mil/uL (3.80-5.20); RED CELL DISTRIBUTION WIDTH 17.9 % (11.5-14.5); WHITE BLOOD COUNT 10.9 K/uL (4.8-10.8)
[2018-12-29 06:47] LABS: ALBUMIN 2.5 g/dL (3.5-5.0); BLOOD UREA NITROGEN 24 mg/dL (7-17); CALCIUM 7.1 mg/dl (8.6-10.4); GFR NON-AFRICAN AMERICAN > 60
[2018-12-29 06:48] LABS: ALT/SGPT 11 U/L (9-52); AST/SGOT 25 U/L (14-36)
--- NOTE | 2018-12-29 07:04 | CP.CCUPN ---
<TijerinaSoos M - Last Filed: 12/29/18 13:01> CCU Subjective - Physician Review Subjective (Free Text): Critical care progress note for Dr. Soares. Patient seen and examined at bedside. Patient continues to have non bloody, diarrhea. Overnight patient had 2 episodes. In AM patient was drowsly/sleepy. Patient had recent change in anti-depression/psychotic medications. 12/29/18 13:01 CCU Objective - Vital Signs / Intake & Output Vital Signs (Last 4 hours): Vital Signs Temp Pulse Resp BP Pulse Ox 12/29/18 06:13 95 H 24 151/83 H 100 12/29/18 06:00 96 H 26 H 97 12/29/18 05:14 95 H 25 H 143/58 L 100 12/29/18 05:00 98.1 F 95 H 23 99 12/29/18 04:14 92 H 24 141/74 99 12/29/18 04:00 92 H 25 H 99 12/29/18 03:18 94 H 24 128/72 98 12/29/18 03:04 158/77 H Intake and Output (Last 8hrs): Intake & Output 12/28/18 12/29/18 12/29/18 22:59 06:59 14:59 Intake Total 550 625 Output Total 400 Balance 550 225 Intake: Intake, IV Amount 400 625 Right Hand 400 625 Oral 150 Output: Urine 400 Urethral (Vazquez) 400 Other: # Bowel Movements 1 1 - Physical Exam Head: Positive for: Atraumatic, Normocephalic Extroacular Muscles: Positive for: EOMI Conjunctiva: Positive for: Normal Mouth: Positive for: Moist Mucous Membranes Respiratory/Chest: Negative for: Clear to Auscultation, Accessory Muscle Use Abdomen: Positive for: Tenderness (distended, abdominal tenderness through all quads ), Distention, Normal Bowel Sounds Upper Extremity: Positive for: Normal Inspection. Negative for: Edema Lower Extremity: Positive for: Normal Inspection. Negative for: Edema Skin: Positive for: Warm, Dry, Rashes Psychiatric: Positive for: Oriented x 3 - Medications Active Medications: Active Medications Generic Name Dose Route Start Last Admin Trade Name Freq PRN Reason Stop Dose Admin Apixaban 2.5 mg 12/28/18 11:45 12/28/18 21:19 Eliquis PO 2.5 mg Q12 SHIRA Administration Aspirin 81 mg 12/28/18 12:15 12/28/18 12:19 Ecotrin PO 81 mg DAILY SHIRA Administration Famotidine 20 mg 12/26/18 10:00 12/28/18 09:30 Pepcid IVP 20 mg DAILY SHIRA Administration Metronidazole 500 mg in 100 mls @ 100 mls/hr 12/23/18 16:00 12/29/18 00:30 Flagyl IVPB 100 mls/hr Q8H SHIRA Administration Protocol Potassium Chloride 20 meq/ 1,010 mls @ 75 mls/hr 12/26/18 18:15 12/29/18 00:33 Dextrose/Sodium Chloride IV Not Given .[id number] [facility] Insulin Human Regular 0 unit 12/23/18 16:30 12/28/18 21:06 Novolin R SC Not Given ACHS [facility] Protocol Metoprolol Succinate 12.5 mg 12/28/18 11:00 12/28/18 11:21 Toprol Xl PO 12.5 mg DAILY SHIRA Administration Mirtazapine 30 mg 12/28/18 22:00 12/28/18 21:19 Remeron PO 30 mg HS SHIRA Administration Vancomycin HCl 250 mg 12/24/18 10:15 12/28/18 21:19 Vancocin 250mg Capsule PO 250 mg QID SHIRA Administration Venlafaxine HCl 150 mg 12/28/18 10:00 12/28/18 09:30 Effexor PO 150 mg DAILY SHIRA Administration Zolpidem Tartrate 5 mg 12/28/18 15:03 Ambien PO HS PRN Insomnia - Patient Studies Lab Studies: Microbiology Studies 12/24/18 09:57 Blood Culture - Preliminary Blood NO GROWTH AFTER 4 DAYS 12/24/18 09:57 Blood Culture - Preliminary Blood NO GROWTH AFTER 4 DAYS Lab Studies 12/29/18 12/29/18 12/28/18 Range/Units 05:35 05:35 21:04 WBC 10.9 H (4.8-10.8) K/uL RBC 4.17 (3.80-5.20) Mil/uL Hgb 10.7 L (11.0-16.0) g/dL Hct 34.2 (34.0-47.0) % MCV 82.0 (81.0-99.0) fL MCH 25.7 L (27.0-31.0) pg MCHC 31.4 L (33.0-37.0) g/dL RDW 17.9 H (11.5-14.5) % Plt Count 414 H (130-400) K/uL MPV 8.6 (7.2-11.7) fL Neut % (Auto) 78.9 H (50.0-75.0) % Lymph % (Auto) 16.4 L (20.0-40.0) % [place] % (Auto) 4.0 (0.0-10.0) % Eos % (Auto) 0.1 (0.0-4.0) % Baso % (Auto) 0.6 (0.0-2.0) % Neut # (Auto) 8.6 H (1.8-7.0) K/uL Lymph # (Auto) 1.8 (1.0-4.3) K/uL [place] # (Auto) 0.4 (0.0-0.8) K/uL Eos # (Auto) 0.0 (0.0-0.7) K/uL Baso # (Auto) 0.1 (0.0-0.2) K/uL Sodium 135 (132-148) mmol/L Potassium 4.3 (3.6-5.2) mmol/L Chloride 108 H (98-107) mmol/L Carbon Dioxide 22 (22-30) mmol/L Anion Gap 9 L (10-20) BUN 24 H (7-17) mg/dL Creatinine 0.9 (0.7-1.2) mg/dL Est GFR ( Amer) > 60 Est GFR (Non-Af Amer) > 60 POC Glucose (mg/dL) 128 H (65-110) mg/dL Random Glucose 134 H (65-105) mg/dL Calcium 7.1 L (8.6-10.4) mg/dl Phosphorus 2.9 (2.5-4.5) mg/dL Magnesium 2.2 (1.6-2.3) mg/dL Total Bilirubin 0.6 (0.2-1.3) mg/dL AST 25 (14-36) U/L ALT 11 (9-52) U/L Alkaline Phosphatase 71 (38-126) U/L Total Protein 5.2 L (6.3-8.3) g/dL Albumin 2.5 L (3.5-5.0) g/dL Globulin 2.6 (2.2-3.9) gm/dL Albumin/Globulin Ratio 1.0 (1.0-2.1) 12/28/18 12/28/18 12/28/18 Range/Units 16:13 11:15 07:26 WBC (4.8-10.8) K/uL RBC (3.80-5.20) Mil/uL Hgb (11.0-16.0) g/dL Hct (34.0-47.0) % MCV (81.0-99.0) fL MCH (27.0-31.0) pg MCHC (33.0-37.0) g/dL RDW (11.5-14.5) % Plt Count (130-400) K/uL MPV (7.2-11.7) fL Neut % (Auto) (50.0-75.0) % Lymph % (Auto) (20.0-40.0) % [place] % (Auto) (0.0-10.0) % Eos % (Auto) (0.0-4.0) % Baso % (Auto) (0.0-2.0) % Neut # (Auto) (1.8-7.0) K/uL Lymph # (Auto) (1.0-4.3) K/uL [place] # (Auto) (0.0-0.8) K/uL Eos # (Auto) (0.0-0.7) K/uL Baso # (Auto) (0.0-0.2) K/uL Sodium (132-148) mmol/L Potassium (3.6-5.2) mmol/L Chloride (98-107) mmol/L Carbon Dioxide (22-30) mmol/L Anion Gap (10-20) BUN (7-17) mg/dL Creatinine (0.7-1.2) mg/dL Est GFR ( Amer) Est GFR (Non-Af Amer) POC Glucose (mg/dL) 176 H 173 H 185 H (65-110) mg/dL Random Glucose (65-105) mg/dL Calcium (8.6-10.4) mg/dl Phosphorus (2.5-4.5) mg/dL Magnesium (1.6-2.3) mg/dL Total Bilirubin (0.2-1.3) mg/dL AST (14-36) U/L ALT (9-52) U/L Alkaline Phosphatase (38-126) U/L Total Protein (6.3-8.3) g/dL Albumin (3.5-5.0) g/dL Globulin (2.2-3.9) gm/dL Albumin/Globulin Ratio (1.0-2.1) 12/27/18 Range/Units 21:12 WBC (4.8-10.8) K/uL RBC (3.80-5.20) Mil/uL Hgb (11.0-16.0) g/dL Hct (34.0-47.0) % MCV (81.0-99.0) fL MCH (27.0-31.0) pg MCHC (33.0-37.0) g/dL RDW (11.5-14.5) % Plt Count (130-400) K/uL MPV (7.2-11.7) fL Neut % (Auto) (50.0-75.0) % Lymph % (Auto) (20.0-40.0) % [place] % (Auto) (0.0-10.0) % Eos % (Auto) (0.0-4.0) % Baso % (Auto) (0.0-2.0) % Neut # (Auto) (1.8-7.0) K/uL Lymph # (Auto) (1.0-4.3) K/uL [place] # (Auto) (0.0-0.8) K/uL Eos # (Auto) (0.0-0.7) K/uL Baso # (Auto) (0.0-0.2) K/uL Sodium (132-148) mmol/L Potassium (3.6-5.2) mmol/L Chloride (98-107) mmol/L Carbon Dioxide (22-30) mmol/L Anion Gap (10-20) BUN (7-17) mg/dL Creatinine (0.7-1.2) mg/dL Est GFR ( Amer) Est GFR (Non-Af Amer) POC Glucose (mg/dL) 148 H (65-110) mg/dL Random Glucose (65-105) mg/dL Calcium (8.6-10.4) mg/dl Phosphorus (2.5-4.5) mg/dL Magnesium (1.6-2.3) mg/dL Total Bilirubin (0.2-1.3) mg/dL AST (14-36) U/L ALT (9-52) U/L Alkaline Phosphatase (38-126) U/L Total Protein (6.3-8.3) g/dL Albumin (3.5-5.0) g/dL Globulin (2.2-3.9) gm/dL Albumin/Globulin Ratio (1.0-2.1) Laboratory Results - last 24 hr 12/27/18 12/28/18 12/28/18 21:12 07:26 11:15 WBC RBC Hgb Hct MCV MCH MCHC RDW Plt Count MPV Neut % (Auto) Lymph % (Auto) [place] % (Auto) Eos % (Auto) Baso % (Auto) Neut # (Auto) Lymph # (Auto) [place] # (Auto) Eos # (Auto) Baso # (Auto) Sodium Potassium Chloride Carbon Dioxide Anion Gap BUN Creatinine Est GFR ( Amer) Est GFR (Non-Af Amer) POC Glucose (mg/dL) 148 H 185 H 173 H Random Glucose Calcium Phosphorus Magnesium Total Bilirubin AST ALT Alkaline Phosphatase Total Protein Albumin Globulin Albumin/Globulin Ratio 12/28/18 12/28/18 12/29/18 16:13 21:04 05:35 WBC 10.9 H RBC 4.17 Hgb 10.7 L Hct 34.2 MCV 82.0 MCH 25.7 L MCHC 31.4 L RDW 17.9 H Plt Count 414 H MPV 8.6 Neut % (Auto) 78.9 H Lymph % (Auto) 16.4 L [place] % (Auto) 4.0 Eos % (Auto) 0.1 Baso % (Auto) 0.6 Neut # (Auto) 8.6 H Lymph # (Auto) 1.8 [place] # (Auto) 0.4 Eos # (Auto) 0.0 Baso # (Auto) 0.1 Sodium Potassium Chloride Carbon Dioxide Anion Gap BUN Creatinine Est GFR ( Amer) Est GFR (Non-Af Amer) POC Glucose (mg/dL) 176 H 128 H Random Glucose Calcium Phosphorus Magnesium Total Bilirubin AST ALT Alkaline Phosphatase Total Protein Albumin Globulin Albumin/Globulin Ratio 12/29/18 05:35 WBC RBC Hgb Hct MCV MCH MCHC RDW Plt Count MPV Neut % (Auto) Lymph % (Auto) [place] % (Auto) Eos % (Auto) Baso % (Auto) Neut # (Auto) Lymph # (Auto) [place] # (Auto) Eos # (Auto) Baso # (Auto) Sodium 135 Potassium 4.3 Chloride 108 H Carbon Dioxide 22 Anion Gap 9 L BUN 24 H Creatinine 0.9 Est GFR ( Amer) > 60 Est GFR (Non-Af Amer) > 60 POC Glucose (mg/dL) Random Glucose 134 H Calcium 7.1 L Phosphorus 2.9 Magnesium 2.2 Total Bilirubin 0.6 AST 25 ALT 11 Alkaline Phosphatase 71 Total Protein 5.2 L Albumin 2.5 L Globulin 2.6 Albumin/Globulin Ratio 1.0 Radiology Impressions: Radiology Impressions Abdomen X-Ray 12/28/18 09:50 IMPRESSION: No evidence of bowel obstruction. EKG/Cardiology Studies: Cardiology / EKG Studies 12/28/18 09:54 EKG [ELECTROCARDIOGRAM] Routine Comment: Mode Of Transportation: Reason For Exam: Tachycardia Isolation: Special Contact Fingerstick Blood Sugar Results: 167 Review of Systems - Constitutional Constitutional: absent: Fever, Chills, Sweats, Weakness - EENT Eyes: UNREMARKABLE. absent: Blurred Vision, Irritation Ears: UNREMARKABLE Nose/Mouth/Throat: UNREMARKABLE - Cardiovascular Cardiovascular: UNREMARKABLE. absent: Chest Pain, Chest Pain at Rest, Edema - Respiratory Respiratory: UNREMARKABLE. absent: Cough, Dyspnea - Gastrointestinal Gastrointestinal: Abdominal Pain, Diarrhea. absent: UNREMARKABLE - Genitourinary Genitourinary: UNREMARKABLE. absent: Change in Urinary Stream, Hematuria - Musculoskeletal Musculoskeletal: UNREMARKABLE. absent: Abnormal Gait, Joint Swelling - Integumentary Integumentary: UNREMARKABLE. absent: Change in Pigmentation, Hirsutism - Neurological Neurological: UNREMARKABLE. absent: Disequilibrium, Dizziness, Headaches - Psychiatric Psychiatric: Depression - Endocrine Endocrine: UNREMARKABLE. absent: Heat Intolorance Critical Care Progress Note - Extremities/Vascular Does the Patient have a Central Venous Catheter?: No Does the Patient need a Central Venous Catheter?: No Does the Patient have a Vazquez Catheter?: Yes Does the Patient need a Vazquez Catheter?: Yes - Prophylaxis GI Prophylaxis GI: Pepsid - Prophylaxis DVT Prophylaxis DVT: Not Indicated - Nutrition Nutrition: Nutrition Category Date Time Status Liquid Diet [DIET] Diets 12/26/18 Breakfast Active Assessment/Plan - Assessment and Plan (Free Text) Assessment: 73 F w/ PMhx CHF, CKD, Afib presented to hospital elevated digoxin level, low hemoglobin, transferred to ICU for sepsis, elevated leukocytosis, and distended abdomen. Patient is C. diff positive, on contact isolation ( was previously on kaflex for dental infection & ceftriaxone). Patient is improving, with WBC downtrending, afebrile > 24H, H/H stable. Patient has resolving acute w/ chronic renal failure Patient is more awake, responsive. Patient producing about 40 cc/hr. Repeat abx xray indicating dilated bowel, tolerating clear liquid diet. Patient currently in sleepy state, likely secondary to new antidepression medication started, will hold AM venlafaxine and reasses. 1) Colitis secondary to C. diff 2) Acute anemia 3) Sepsis 4) Acute on chronic renal failure - resolved 5) paroxysmal afib 6) Depression Plan: Neuro - A&O x 3 Cardio - vitals WNL - hx of afib, chx - restart eliquis 2.5 BID - repeat EKG, sinus tachycardia Pulm - vitals WNL - continue to monitor - d/c oxygen requirement GI - colitis - C. diff positive - stool occult +, monitor H/H due to resumption of eliquis - flagyl & vancomyicin ( see below) - d/c vazquez Heme - H/H stable, continue to monitor due to resumption of eliquis - WBC downtrending, now to 10 - afebrile >48 Hr, Lactate wnl - U/C negative, Blood cultures negative - C. diff positive - c/w vancomyocin 250mg PO QID, flagyl 500 mg IVPB Q8H - Florastor TID Endo - BS 150s - ISS - hypoglycemia protocol Renal - Elevated BUN/Cr 24/0.9 - Acute on chronic renal failure improving - D5 NS 75 cc/hr - replenish electrolytes Psych - hx of depression/anxiety - patient started on remeron 30 mg HS & venlafaxine 150 mg daily, and ambien PRN - hold ambien currently - hold AM venlafaxine - will re-assess in AM regarding drowsy state PPx - DVT: Heparin 5000 units Q12 - GI: Pepcid 20mg IVP daily <Juan RamonKeagan hummel M - Last Filed: 12/29/18 18:11> CCU Objective - Vital Signs / Intake & Output Vital Signs (Last 4 hours): Vital Signs Temp Pulse Resp BP Pulse Ox 12/29/18 17:00 100 H 26 H 100 12/29/18 16:57 99 H 26 H 141/83 100 12/29/18 16:00 98.2 F 100 H 25 H 100 12/29/18 15:58 100 H 24 137/83 100 12/29/18 15:00 102 H 24 99 12/29/18 14:58 103 H 25 H 165/95 H 99 Intake and Output (Last 8hrs): Intake & Output 12/29/18 12/29/18 12/29/18 06:59 14:59 22:59 Intake Total 625 745 345 Output Total 400 Balance 225 745 345 Intake: Intake, IV Amount 625 625 225 Right Hand 625 75 Right Wrist 550 225 Oral 120 120 Output: Urine 400 Urethral (Vazquez) 400 Other: # Bowel Movements 1 1 1 - Medications Active Medications: Active Medications Generic Name Dose Route Start Last Admin Trade Name Freq PRN Reason Stop Dose Admin Apixaban 2.5 mg 12/28/18 11:45 12/29/18 09:14 Eliquis PO 2.5 mg Q12 SHIRA Administration Aspirin 81 mg 12/28/18 12:15 12/29/18 09:14 Ecotrin PO 81 mg DAILY SHIRA Administration Famotidine 20 mg 12/30/18 10:00 Pepcid PO DAILY SHIRA Metronidazole 500 mg in 100 mls @ 100 mls/hr 12/23/18 16:00 12/29/18 16:28 Flagyl IVPB 100 mls/hr Q8H SHIRA Administration Protocol Potassium Chloride 20 meq/ 1,010 mls @ 75 mls/hr 12/26/18 18:15 12/29/18 17:40 Dextrose/Sodium Chloride IV 75 mls/hr .[id number] SHIRA Administration Insulin Human Regular 0 unit 12/23/18 16:30 12/29/18 16:27 Novolin R SC 2 units ACHS SHIRA Administration Protocol Metoprolol Succinate 12.5 mg 12/28/18 11:00 12/29/18 09:14 Toprol Xl PO 12.5 mg DAILY SHIRA Administration Mirtazapine 30 mg 12/28/18 22:00 12/28/18 21:19 Remeron PO 30 mg HS SHIRA Administration Vancomycin HCl 250 mg 12/24/18 10:15 12/29/18 17:40 Vancocin 250mg Capsule PO 250 mg QID SHIRA Administration Venlafaxine HCl 150 mg 12/28/18 10:00 12/28/18 09:30 Effexor PO 150 mg DAILY SHIRA Administration - Patient Studies Lab Studies: Microbiology Studies 12/24/18 09:57 Blood Culture - Final Blood NO GROWTH AFTER 5 DAYS 12/24/18 09:57 Blood Culture - Final Blood NO GROWTH AFTER 5 DAYS Gram Stain - Final TEST NOT PERFORMED Lab Studies 12/29/18 12/29/18 12/29/18 Range/Units 16:20 05:35 05:35 WBC 10.9 H (4.8-10.8) K/uL RBC 4.17 (3.80-5.20) Mil/uL Hgb 10.7 L (11.0-16.0) g/dL Hct 34.2 (34.0-47.0) % MCV 82.0 (81.0-99.0) fL MCH 25.7 L (27.0-31.0) pg MCHC 31.4 L (33.0-37.0) g/dL RDW 17.9 H (11.5-14.5) % Plt Count 414 H (130-400) K/uL MPV 8.6 (7.2-11.7) fL Neut % (Auto) 78.9 H (50.0-75.0) % Lymph % (Auto) 16.4 L (20.0-40.0) % [place] % (Auto) 4.0 (0.0-10.0) % Eos % (Auto) 0.1 (0.0-4.0) % Baso % (Auto) 0.6 (0.0-2.0) % Neut # (Auto) 8.6 H (1.8-7.0) K/uL Lymph # (Auto) 1.8 (1.0-4.3) K/uL [place] # (Auto) 0.4 (0.0-0.8) K/uL Eos # (Auto) 0.0 (0.0-0.7) K/uL Baso # (Auto) 0.1 (0.0-0.2) K/uL Sodium 135 (132-148) mmol/L Potassium 4.3 (3.6-5.2) mmol/L Chloride 108 H (98-107) mmol/L Carbon Dioxide 22 (22-30) mmol/L Anion Gap 9 L (10-20) BUN 24 H (7-17) mg/dL Creatinine 0.9 (0.7-1.2) mg/dL Est GFR ( Amer) > 60 Est GFR (Non-Af Amer) > 60 POC Glucose (mg/dL) 202 H (65-110) mg/dL Random Glucose 134 H (65-105) mg/dL Calcium 7.1 L (8.6-10.4) mg/dl Phosphorus 2.9 (2.5-4.5) mg/dL Magnesium 2.2 (1.6-2.3) mg/dL Total Bilirubin 0.6 (0.2-1.3) mg/dL AST 25 (14-36) U/L ALT 11 (9-52) U/L Alkaline Phosphatase 71 (38-126) U/L Total Protein 5.2 L (6.3-8.3) g/dL Albumin 2.5 L (3.5-5.0) g/dL Globulin 2.6 (2.2-3.9) gm/dL Albumin/Globulin Ratio 1.0 (1.0-2.1) 12/28/18 Range/Units 21:04 WBC (4.8-10.8) K/uL RBC (3.80-5.20) Mil/uL Hgb (11.0-16.0) g/dL Hct (34.0-47.0) % MCV (81.0-99.0) fL MCH (27.0-31.0) pg MCHC (33.0-37.0) g/dL RDW (11.5-14.5) % Plt Count (130-400) K/uL MPV (7.2-11.7) fL Neut % (Auto) (50.0-75.0) % Lymph % (Auto) (20.0-40.0) % [place] % (Auto) (0.0-10.0) % Eos % (Auto) (0.0-4.0) % Baso % (Auto) (0.0-2.0) % Neut # (Auto) (1.8-7.0) K/uL Lymph # (Auto) (1.0-4.3) K/uL [place] # (Auto) (0.0-0.8) K/uL Eos # (Auto) (0.0-0.7) K/uL Baso # (Auto) (0.0-0.2) K/uL Sodium (132-148) mmol/L Potassium (3.6-5.2) mmol/L Chloride (98-107) mmol/L Carbon Dioxide (22-30) mmol/L Anion Gap (10-20) BUN (7-17) mg/dL Creatinine (0.7-1.2) mg/dL Est GFR ( Amer) Est GFR (Non-Af Amer) POC Glucose (mg/dL) 128 H (65-110) mg/dL Random Glucose (65-105) mg/dL Calcium (8.6-10.4) mg/dl Phosphorus (2.5-4.5) mg/dL Magnesium (1.6-2.3) mg/dL Total Bilirubin (0.2-1.3) mg/dL AST (14-36) U/L ALT (9-52) U/L Alkaline Phosphatase (38-126) U/L Total Protein (6.3-8.3) g/dL Albumin (3.5-5.0) g/dL Globulin (2.2-3.9) gm/dL Albumin/Globulin Ratio (1.0-2.1) Laboratory Results - last 24 hr 12/28/18 12/29/18 12/29/18 21:04 05:35 05:35 WBC 10.9 H RBC 4.17 Hgb 10.7 L Hct 34.2 MCV 82.0 MCH 25.7 L MCHC 31.4 L RDW 17.9 H Plt Count 414 H MPV 8.6 Neut % (Auto) 78.9 H Lymph % (Auto) 16.4 L [place] % (Auto) 4.0 Eos % (Auto) 0.1 Baso % (Auto) 0.6 Neut # (Auto) 8.6 H Lymph # (Auto) 1.8 [place] # (Auto) 0.4 Eos # (Auto) 0.0 Baso # (Auto) 0.1 Sodium 135 Potassium 4.3 Chloride 108 H Carbon Dioxide 22 Anion Gap 9 L BUN 24 H Creatinine 0.9 Est GFR ( Amer) > 60 Est GFR (Non-Af Amer) > 60 POC Glucose (mg/dL) 128 H Random Glucose 134 H Calcium 7.1 L Phosphorus 2.9 Magnesium 2.2 Total Bilirubin 0.6 AST 25 ALT 11 Alkaline Phosphatase 71 Total Protein 5.2 L Albumin 2.5 L Globulin 2.6 Albumin/Globulin Ratio 1.0 12/29/18 16:20 WBC RBC Hgb Hct MCV MCH MCHC RDW Plt Count MPV Neut % (Auto) Lymph % (Auto) [place] % (Auto) Eos % (Auto) Baso % (Auto) Neut # (Auto) Lymph # (Auto) [place] # (Auto) Eos # (Auto) Baso # (Auto) Sodium Potassium Chloride Carbon Dioxide Anion Gap BUN Creatinine Est GFR ( Amer) Est GFR (Non-Af Amer) POC Glucose (mg/dL) 202 H Random Glucose Calcium Phosphorus Magnesium Total Bilirubin AST ALT Alkaline Phosphatase Total Protein Albumin Globulin Albumin/Globulin Ratio Critical Care Progress Note - Nutrition Nutrition: Nutrition Category Date Time Status Liquid Diet [DIET] Diets 12/26/18 Breakfast Active Attending/Attestation - Attestation I have personally seen and examined this patient.: Yes I have fully participated in the care of the patient.: Yes I have reviewed all pertinent clinical information: Yes Notes (Text): 12/29/18 18:11 Today: December The Patient was seen and examined at the bedside, Medical records reviewed, and management issues were discussed and formulated with the house staff. I have reviewed all the relevant clinical, laboratory, hemodynamic, radiographic data and medications Events reviewed Pain issues, skin care, head of the bed elevation, glycemic control were addressed. Agree with above resident's assessment and treatment plans of care as transcribed in Dr. Tijerina's note.
[2018-12-29] MEDS: (Novolin R) Insulin Human Regular 100 units/ml vial SC SCH ×4 (07:44→21:22)
[2018-12-29] MEDS: Metoprolol Succinate 12.5 mg XL Tab PO SCH (09:14)
[2018-12-29] MEDS: Vancomycin Hydrochloride 250 mg Capsule (Oral) PO SCH ×5 (09:46→22:11)
--- NOTE | 2018-12-29 11:18 | CP.PCM.PN ---
Subjective - Date & Time of Evaluation Date of Evaluation: 12/29/18 Time of Evaluation: 10:15 - Subjective Subjective: f/u colitis Diarrhea present. No Rb, melena, fever, chills, Sz, LOC, GARCIA, cough, hematuria, hemoptysis Objective - Vital Signs/Intake and Output Vital Signs (last 24 hours): Temp Pulse Resp BP Pulse Ox 97.1 F L 96 H 22 153/85 H 100 12/29/18 08:00 12/29/18 11:00 12/29/18 11:00 12/29/18 10:57 12/29/18 11:00 Intake and Output: 12/29/18 12/29/18 06:59 18:59 Intake Total 900 520 Output Total 400 Balance 500 520 - Medications Medications: Current Medications Apixaban (Eliquis) 2.5 mg PO Q12 [facility] Last Admin: 12/29/18 09:14 Dose: 2.5 mg Aspirin (Ecotrin) 81 mg PO DAILY [facility] Last Admin: 12/29/18 09:14 Dose: 81 mg Famotidine (Pepcid) 20 mg IVP DAILY [facility] Last Admin: 12/29/18 09:14 Dose: 20 mg Metronidazole (Flagyl) 500 mg in 100 mls @ 100 mls/hr IVPB Q8H [facility]; Protocol Last Admin: 12/29/18 07:43 Dose: 100 mls/hr Potassium Chloride 20 meq/ (Dextrose/Sodium Chloride) 1,010 mls @ 75 mls/hr IV .[id number] [facility] Last Admin: 12/29/18 00:33 Dose: Not Given Insulin Human Regular (Novolin R) 0 unit SC ACHS [facility]; Protocol Last Admin: 12/29/18 07:44 Dose: 1 units Metoprolol Succinate (Toprol Xl) 12.5 mg PO DAILY [facility] Last Admin: 12/29/18 09:14 Dose: 12.5 mg Mirtazapine (Remeron) 30 mg PO HS [facility] Last Admin: 12/28/18 21:19 Dose: 30 mg Vancomycin HCl (Vancocin 250mg Capsule) 250 mg PO QID [facility] Last Admin: 12/29/18 09:46 Dose: 250 mg Venlafaxine HCl (Effexor) 150 mg PO DAILY [facility] Last Admin: 12/28/18 09:30 Dose: 150 mg - Labs Labs: 12/29/18 05:35 12/29/18 05:35 PT 22.6 SECONDS (9.7-12.2) H D 12/24/18 14:57 INR 2.1 D 12/24/18 14:57 APTT 33 SECONDS (21-34) 12/24/18 14:57 - Constitutional Appears: Confused - Respiratory Exam Respiratory Exam: Clear to Ausculation Bilateral - Cardiovascular Exam Cardiovascular Exam: RRR - GI/Abdominal Exam GI & Abdominal Exam: Soft, Tenderness, Normal Bowel Sounds. absent: Guarding, Mass, Rebound - Extremities Exam Extremities Exam: absent: Calf Tenderness - Neurological Exam Neurological Exam: Alert. absent: Oriented x3 Assessment and Plan (1) Depression Status: Acute (2) Anemia Assessment & Plan: Hb stable Status: Acute (3) Abdominal pain Assessment & Plan: Due to colitis. Improving Status: Acute (4) Colitis Assessment & Plan: Improving Status: Acute (5) Sepsis Status: Acute (6) Renal insufficiency Status: Acute
--- NOTE | 2018-12-29 14:51 | CP.PCM.PN ---
Subjective - Date & Time of Evaluation Date of Evaluation: 12/29/18 Time of Evaluation: 14:51 - Subjective Subjective: Nephrology Consultation Note: Assessment: stablel Acute Kidney Injury (N17.9) likely due to ATN due to sepsis, IV contrast C.Diff colitis, hagma with respi compensation, hyponatremia hypocalcemia Diabetic chronic Kidney Disease (E11.22) Hypertensive Chronic Kidney Disease (I12.9) Chronic Kidney Disease (N18.3) Stage 3 with ? mg proteinuria (R80.9) Anemia (D64.9) hx of dig toxicity, A fib, CVA, hypothyroidism left adrenal nodule Plan No acute need for renal replacement therapy at this time. renal function improving Hypertension control with meds as ordered. Maintain hemodynamics stable. Avoid hypotension. Patient not on ACEI/ARB due to recent LOUIE, can add if needed for elevated BP Monitor Input/Output, daily weights and renal function with basic metabolic panel supplement lytes as needed left adrenal nodule work up as outpt Dose meds/antibiotics for improved GFR. Glycemic control Further work up/management as per primary team Thanks for allowing me to participate in care of your patient. Will follow patient with you. Please call if any Qs. had d/w team Dr Raghu Solis Office: [phone] Chief Complaint; pain abdomen Reason for consult: Acute Kidney Injury HPI: Pt is a 73 F with hx of diabetes Mellitus ( years), hypertension (years) CKD 3 with baseline cr 1.2-1.4, hx of dig toxicity, A fib, CVA, hypothyroidism presented with complaints of pain abdomen and being managed for sepsis, colitis, transferred to ICU Denies OTC/herbal meds or NSAIDs Noted recent iodinated contrast exposure. Noted obvious episodes of low BP (99/61). pt not aware about kidney disease in past ROS: Cardiovascular: No chest pain. Pulmonary: No shortness of breath Gastrointestinal: improved abdominal pain No nausea. No vomiting. Genitourinary: No pain while urinating. Denies blood in urine. All other negative except as mentioned in HPI Physical Examination: General Appearance: comfortable, in no acute respiratory distress, co-operative . better appearing Vitals reviewed and noted as below Head; Atraumatic, normocephalic ENT: no ulcers no thrush. Tongue is midline. Oropharynx: no rash or ulcers. EYES: Pupils are equal, round and reactive to light accommodation. Eye muscles and extraocular movement intact. Sclera is anicteric. Neck; supple no lymphadenopathy, no thyromegaly or bruit Lungs: Normal respiratory rate/effort. Breath sounds bilateral equal and clear Heart: normal rate. s1s2 normal. No rub or gallop. Extremities: no edema. No varicose veins Neurological: Patient is alert, awake No focal deficit. Strength bilateral appropriate and equal. confused Skin: Warm and dry. Normal turgor. No rash. Palpitation: Normal elasticity for age Abdomen: Abdomen is soft. Bowel sounds +. There is distension with abdominal tenderness, no guarding/rigidity no organomegaly Psych: limited insight and normal affect/mood MSK: no joint tenderness or swelling. Digits and nails normal, no deformity : kidney or bladder not palpable Labs/imaging reviewed. Past medical history, past surgical history, family history, social history, allergy reviewed and noted as below Family hx: no hx of CKD. Rest non-contributory Objective - Vital Signs/Intake and Output Vital Signs (last 24 hours): Temp Pulse Resp BP Pulse Ox 96.7 F L 98 H 23 149/86 100 12/29/18 12:00 12/29/18 14:00 12/29/18 14:00 12/29/18 13:57 12/29/18 14:00 Intake and Output: 12/29/18 12/29/18 06:59 18:59 Intake Total 900 745 Output Total 400 Balance 500 745 - Medications Medications: Current Medications Apixaban (Eliquis) 2.5 mg PO Q12 [facility] Last Admin: 12/29/18 09:14 Dose: 2.5 mg Aspirin (Ecotrin) 81 mg PO DAILY [facility] Last Admin: 12/29/18 09:14 Dose: 81 mg Famotidine (Pepcid) 20 mg PO DAILY [facility] Metronidazole (Flagyl) 500 mg in 100 mls @ 100 mls/hr IVPB Q8H [facility]; Protocol Last Admin: 12/29/18 07:43 Dose: 100 mls/hr Potassium Chloride 20 meq/ (Dextrose/Sodium Chloride) 1,010 mls @ 75 mls/hr IV .[id number] [facility] Last Admin: 12/29/18 00:33 Dose: Not Given Insulin Human Regular (Novolin R) 0 unit SC ACHS [facility]; Protocol Last Admin: 12/29/18 11:55 Dose: 1 units Metoprolol Succinate (Toprol Xl) 12.5 mg PO DAILY [facility] Last Admin: 12/29/18 09:14 Dose: 12.5 mg Mirtazapine (Remeron) 30 mg PO HS [facility] Last Admin: 12/28/18 21:19 Dose: 30 mg Vancomycin HCl (Vancocin 250mg Capsule) 250 mg PO QID [facility] Last Admin: 12/29/18 13:38 Dose: Not Given Venlafaxine HCl (Effexor) 150 mg PO DAILY [facility] Last Admin: 12/28/18 09:30 Dose: 150 mg - Labs Labs: 12/29/18 05:35 12/29/18 05:35 PT 22.6 SECONDS (9.7-12.2) H D 12/24/18 14:57 INR 2.1 D 12/24/18 14:57 APTT 33 SECONDS (21-34) 12/24/18 14:57
--- NOTE | 2018-12-29 15:00 | CP.PCM.PN ---
Subjective - Date & Time of Evaluation Date of Evaluation: 12/29/18 Time of Evaluation: 14:57 - Subjective Subjective: pt seen still in icu still has diarhea but less no pain Objective - Vital Signs/Intake and Output Vital Signs (last 24 hours): Temp Pulse Resp BP Pulse Ox 96.7 F L 98 H 23 149/86 100 12/29/18 12:00 12/29/18 14:00 12/29/18 14:00 12/29/18 13:57 12/29/18 14:00 Intake and Output: 12/29/18 12/29/18 06:59 18:59 Intake Total 900 745 Output Total 400 Balance 500 745 - Medications Medications: Current Medications Apixaban (Eliquis) 2.5 mg PO Q12 [facility] Last Admin: 12/29/18 09:14 Dose: 2.5 mg Aspirin (Ecotrin) 81 mg PO DAILY [facility] Last Admin: 12/29/18 09:14 Dose: 81 mg Famotidine (Pepcid) 20 mg PO DAILY [facility] Metronidazole (Flagyl) 500 mg in 100 mls @ 100 mls/hr IVPB Q8H [facility]; Protocol Last Admin: 12/29/18 07:43 Dose: 100 mls/hr Potassium Chloride 20 meq/ (Dextrose/Sodium Chloride) 1,010 mls @ 75 mls/hr IV .[id number] [facility] Last Admin: 12/29/18 00:33 Dose: Not Given Insulin Human Regular (Novolin R) 0 unit SC ACHS [facility]; Protocol Last Admin: 12/29/18 11:55 Dose: 1 units Metoprolol Succinate (Toprol Xl) 12.5 mg PO DAILY [facility] Last Admin: 12/29/18 09:14 Dose: 12.5 mg Mirtazapine (Remeron) 30 mg PO HS [facility] Last Admin: 12/28/18 21:19 Dose: 30 mg Vancomycin HCl (Vancocin 250mg Capsule) 250 mg PO QID [facility] Last Admin: 12/29/18 13:38 Dose: Not Given Venlafaxine HCl (Effexor) 150 mg PO DAILY [facility] Last Admin: 12/28/18 09:30 Dose: 150 mg - Labs Labs: 12/29/18 05:35 12/29/18 05:35 PT 22.6 SECONDS (9.7-12.2) H D 12/24/18 14:57 INR 2.1 D 12/24/18 14:57 APTT 33 SECONDS (21-34) 12/24/18 14:57 - Constitutional Appears: Non-toxic - Head Exam Head Exam: ATRAUMATIC - Eye Exam Eye Exam: Normal appearance Pupil Exam: NORMAL ACCOMODATION - ENT Exam ENT Exam: Normal Exam - Neck Exam Neck Exam: Full ROM - Respiratory Exam Respiratory Exam: Clear to Ausculation Bilateral - Cardiovascular Exam Cardiovascular Exam: REGULAR RHYTHM - GI/Abdominal Exam GI & Abdominal Exam: Normal Bowel Sounds - Extremities Exam Extremities Exam: Full ROM - Back Exam Back Exam: NORMAL INSPECTION - Neurological Exam Neurological Exam: Alert, Awake, Oriented x3 - Psychiatric Exam Additional comments: depression - Skin Skin Exam: Pallor Assessment and Plan - Assessment and Plan (Free Text) Assessment: ac c def infection aneamia htn Plan: cont as ordered
--- NOTE | 2018-12-29 16:25 | PN ---
DATE: 12/29/2018 SUBJECTIVE: The patient appears depressed, but denies any chest pain. PHYSICAL EXAMINATION: VITAL SIGNS: Blood pressure 143/85, heart rate 96, respirations 20, temperature 97.1. HEENT: Pale conjunctivae. CHEST: Clear. HEART: S1 and S2 regular. ABDOMEN: Mildly distended. EXTREMITIES: No edema. LABORATORY DATA: Today's hemoglobin and hematocrit 10.7 and 34.2. White count 10.9, platelet count 415,000. Today's SMA-7, sodium 135, potassium 4.3, chloride 108, CO2 22, glucose 134, BUN 24, creatinine 0.9. Today's magnesium and phosphorus are within normal limits. Calcium is below normal at 7.1. Yesterday, the EKG revealed sinus tachycardia at a rate of 101. ASSESSMENT: 1. History of paroxysmal atrial fibrillation. 2. Clostridium difficile colitis. 3. History of depression. 4. Mild anemia. 5. Improved renal insufficiency. 6. Diabetes mellitus. RECOMMENDATIONS: Continue aspirin 81 mg once a day, Effexor at 150 mg once a day, Eliquis 2.5 mg twice a day, intravenous potassium chloride replacement p.r.n., Toprol-XL 12.5 mg once a day, oral vancomycin 250 mg four times a day. Sukhdev Dave MD
[2018-12-29 18:32] LABS: ABG ALLEN TEST PO; ARTERIAL BLOOD GAS HCO3 22.9 mmol/L (21-28); ARTERIAL BLOOD GAS O2 SAT 97.9 % (95-98); ARTERIAL BLOOD GAS PCO2 25 mm/Hg (35-45); ARTERIAL BLOOD GAS PH 7.49 (7.35-7.45); ARTERIAL BLOOD GAS PO2 85 mm/Hg (80-100); ARTERIAL BLOOD GAS TCO2 19.9 mmol/L (22-28)
--- NOTE | 2018-12-29 19:54 | CARD ---
APPROVED REPORT Date of service: 12/28/2018 EKG Measurement Heart [id number] <Conclusion> Sinus tachycardia Otherwise normal ECG
--- NOTE | 2018-12-29 23:02 | PN ---
DATE: 12/29/2018 SUBJECTIVE: The patient is seen. The patient is refusing to take her meds. Seems to be drowsy and not eating well. Her Effexor has been held for now. The patient also is on Remeron. The patient is refusing to take most of her meds and seems to be regressing psych martin and going again to a bout of depression. VITAL SIGNS: Temperature is 98.2, pulse 102, blood pressure 151/87, respirations 25, oxygen saturation 100. REVIEW OF SYSTEMS: GENERAL: The patient is alert but minimal verbal output seen today, seems drowsy, seen in her room, refusing to eat and take her meds. She is in ICU bed. SKIN: No diaphoresis. HEENT: No headache. No dizziness. NECK: Supple. RESPIRATORY: No dyspnea. CARDIOVASCULAR: No chest pain. GASTROINTESTINAL: Appetite is poor. EXTREMITIES: Moving extremities. NEUROLOGIC: Alert with periods of confusion. GENITOURINARY: No dysuria. MENTAL STATUS EXAMINATION: Elderly female who looks stated age. Mood is dysphoric. Affect is restricted. Oriented x2. The patient has minimal verbal output. Thought process, confused. Thought content, refusing to eat and take her meds. No psychosis. No suicidal ideation. Mood seems to be depressed. Attention and memory seems to be limited. Insight and judgement limited. Impulse control is fair. IMPRESSION: History of recurrent depression, anxiety, colitis. PLAN AND RECOMMENDATION: The patient was seen. Meds were reviewed. Continue present management. Note, Effexor is currently being held. Monitor for signs of certain withdrawal symptoms of Effexor if stopped abruptly, the patient can exhibit certain withdrawal symptoms; however, the patient is on Remeron which is another medication for depression. Continue treatment plan as outlined. If the patient continues to deteriorate psych martin, we will consider referring to geropsych unit. The patient seems to be exhibiting her previous symptoms that led her to inpatient hospitalization at [facility]. Alexandre Kumari MD
[2018-12-30] MEDS: metroNIDAZOLE IV 500 mg/100 ml 500 MG/100 ML BAG IVPB SCH ×2 (00:39→08:00)
[2018-12-30] MEDS: Potassium Chloride 20 MEQ in Dextrose 5%/0.9% NS 1,000 ML IV SCH (02:59)
[2018-12-30 04:26] LABS: BASO % 0.4 % (0.0-2.0); EOS % 0.1 % (0.0-4.0); HEMOGLOBIN 10.5 g/dL (11.0-16.0); LYMPH # 1.6 K/uL (1.0-4.3); LYMPH % 15.1 % (20.0-40.0); MEAN CELL VOLUME 81.7 fL (81.0-99.0); MEAN CORPUSCULAR HEMOGLOBIN 25.4 pg (27.0-31.0); MEAN CORPUSCULAR HGB CONC 31.1 g/dL (33.0-37.0); MEAN PLATELET VOLUME 8.6 fL (7.2-11.7); MONO # 0.5 K/uL (0.0-0.8); NEUT # 8.5 K/uL (1.8-7.0); NEUT % 79.4 % (50.0-75.0); RBC 4.11 Mil/uL (3.80-5.20); RED CELL DISTRIBUTION WIDTH 18.5 % (11.5-14.5); WHITE BLOOD COUNT 10.7 K/uL (4.8-10.8)
[2018-12-30 05:02] LABS: BLOOD UREA NITROGEN 21 mg/dL (7-17); GFR NON-AFRICAN AMERICAN > 60
[2018-12-30 05:03] LABS: ALB/GLOB RATIO 0.8 (1.0-2.1); ALBUMIN 2.5 g/dL (3.5-5.0); CALCIUM 7.6 mg/dl (8.6-10.4)
[2018-12-30 05:04] LABS: ALT/SGPT 16 U/L (9-52); AST/SGOT 31 U/L (14-36)
--- NOTE | 2018-12-30 07:12 | CP.CCUPN ---
<LillianaGiannaJerzy M - Last Filed: 12/30/18 10:39> CCU Subjective - Physician Review Subjective (Free Text): Critical care progress note for Dr. Soares. Patient seen and examined at bedside. Patient continues to have non bloody, diarrhea. Overnight patient had 1 episode of diarrhea. Patient nods her head to no pain. Patient refusing to verbalize as similar to her previous psychiatric admission. Unable to fully access ROS as patient is refusing to speak. Per nursing staff, patient is eating minimally. 12/30/18 10:39 CCU Objective - Vital Signs / Intake & Output Vital Signs (Last 4 hours): Vital Signs Temp Pulse Resp BP Pulse Ox 12/30/18 04:00 98.3 F 106 H 30 H 100 12/30/18 03:58 108 H 30 H 154/99 H 100 Intake and Output (Last 8hrs): Intake & Output 12/29/18 12/30/18 12/30/18 22:59 06:59 14:59 Intake Total 720 475 Output Total 150 Balance 570 475 Intake: Intake, IV Amount 600 475 Right Wrist 600 475 Oral 120 Output: Urine 150 Urine, Voided 150 Other: # Bowel Movements 1 1 - Physical Exam Head: Positive for: Atraumatic, Normocephalic Extroacular Muscles: Positive for: EOMI Conjunctiva: Positive for: Normal Mouth: Positive for: Moist Mucous Membranes Respiratory/Chest: Negative for: Clear to Auscultation, Accessory Muscle Use Abdomen: Positive for: Tenderness (distended, abdominal tenderness through all quads ), Distention, Normal Bowel Sounds Upper Extremity: Positive for: Normal Inspection. Negative for: Edema Lower Extremity: Positive for: Normal Inspection. Negative for: Edema Skin: Positive for: Warm, Dry, Rashes Psychiatric: Positive for: Depressed Mood (Flat affect ) - Medications Active Medications: Active Medications Generic Name Dose Route Start Last Admin Trade Name Freq PRN Reason Stop Dose Admin Apixaban 2.5 mg 12/28/18 11:45 12/29/18 22:11 Eliquis PO 2.5 mg Q12 SHIRA Administration Aspirin 81 mg 12/28/18 12:15 12/29/18 09:14 Ecotrin PO 81 mg DAILY SHIRA Administration Famotidine 20 mg 12/30/18 10:00 Pepcid PO DAILY SHIRA Metronidazole 500 mg in 100 mls @ 100 mls/hr 12/23/18 16:00 12/30/18 00:39 Flagyl IVPB 100 mls/hr Q8H [facility] Administration Protocol Potassium Chloride 20 meq/ 1,010 mls @ 75 mls/hr 12/26/18 18:15 12/30/18 02:59 Dextrose/Sodium Chloride IV Not Given .[id number] [facility] Insulin Human Regular 0 unit 12/23/18 16:30 12/29/18 21:22 Novolin R SC Not Given ACHS [facility] Protocol Metoprolol Succinate 12.5 mg 12/28/18 11:00 12/29/18 09:14 Toprol Xl PO 12.5 mg DAILY SHIRA Administration Mirtazapine 30 mg 12/28/18 22:00 12/29/18 22:11 Remeron PO 30 mg HS SHIRA Administration Vancomycin HCl 250 mg 12/24/18 10:15 12/29/18 22:11 Vancocin 250mg Capsule PO 250 mg QID SHIRA Administration Venlafaxine HCl 150 mg 12/28/18 10:00 12/28/18 09:30 Effexor PO 150 mg DAILY SHIRA Administration - Patient Studies Lab Studies: Microbiology Studies 12/24/18 09:57 Blood Culture - Final Blood NO GROWTH AFTER 5 DAYS 12/24/18 09:57 Blood Culture - Final Blood NO GROWTH AFTER 5 DAYS Gram Stain - Final TEST NOT PERFORMED Lab Studies 12/30/18 12/30/18 12/29/18 Range/Units 04:20 04:20 21:00 WBC 10.7 (4.8-10.8) K/uL RBC 4.11 (3.80-5.20) Mil/uL Hgb 10.5 L (11.0-16.0) g/dL Hct 33.6 L (34.0-47.0) % MCV 81.7 (81.0-99.0) fL MCH 25.4 L (27.0-31.0) pg MCHC 31.1 L (33.0-37.0) g/dL RDW 18.5 H (11.5-14.5) % Plt Count 416 H (130-400) K/uL MPV 8.6 (7.2-11.7) fL Neut % (Auto) 79.4 H (50.0-75.0) % Lymph % (Auto) 15.1 L (20.0-40.0) % [place] % (Auto) 5.0 (0.0-10.0) % Eos % (Auto) 0.1 (0.0-4.0) % Baso % (Auto) 0.4 (0.0-2.0) % Neut # (Auto) 8.5 H (1.8-7.0) K/uL Lymph # (Auto) 1.6 (1.0-4.3) K/uL [place] # (Auto) 0.5 (0.0-0.8) K/uL Eos # (Auto) 0.0 (0.0-0.7) K/uL Baso # (Auto) 0.0 (0.0-0.2) K/uL Puncture Site pCO2 (35-45) mm/Hg pO2 (80-100) mm/Hg HCO3 (21-28) mmol/L ABG pH (7.35-7.45) ABG Total CO2 (22-28) mmol/L ABG O2 Saturation (95-98) % ABG Base Excess (-2.0-3.0) mmol/L Jaden Test ABG Potassium (3.6-5.2) mmol/L A-a O2 Difference mm/Hg Respiratory Index Sodium 136 (132-148) mmol/l Chloride 113 H (98-107) mmol/L Glucose (65-105) mg/dl Lactate (0.7-2.1) mmol/L FiO2 % Potassium 5.2 (3.6-5.2) mmol/L Carbon Dioxide 20 L (22-30) mmol/L Anion Gap 8 L (10-20) BUN 21 H (7-17) mg/dL Creatinine 0.9 (0.7-1.2) mg/dL Est GFR ( Amer) > 60 Est GFR (Non-Af Amer) > 60 POC Glucose (mg/dL) 165 H (65-110) mg/dL Random Glucose 169 H D (65-105) mg/dL Calcium 7.6 L (8.6-10.4) mg/dl Phosphorus 3.3 (2.5-4.5) mg/dL Magnesium 1.8 (1.6-2.3) mg/dL Total Bilirubin 0.9 (0.2-1.3) mg/dL AST 31 (14-36) U/L ALT 16 (9-52) U/L Alkaline Phosphatase 79 (38-126) U/L Total Protein 5.6 L (6.3-8.3) g/dL Albumin 2.5 L (3.5-5.0) g/dL Globulin 3.0 (2.2-3.9) gm/dL Albumin/Globulin Ratio 0.8 L (1.0-2.1) Arterial Blood Potassium (3.6-5.2) mmol/L 12/29/18 12/29/18 Range/Units 18:29 16:20 WBC (4.8-10.8) K/uL RBC (3.80-5.20) Mil/uL Hgb (11.0-16.0) g/dL Hct (34.0-47.0) % MCV (81.0-99.0) fL MCH (27.0-31.0) pg MCHC (33.0-37.0) g/dL RDW (11.5-14.5) % Plt Count (130-400) K/uL MPV (7.2-11.7) fL Neut % (Auto) (50.0-75.0) % Lymph % (Auto) (20.0-40.0) % [place] % (Auto) (0.0-10.0) % Eos % (Auto) (0.0-4.0) % Baso % (Auto) (0.0-2.0) % Neut # (Auto) (1.8-7.0) K/uL Lymph # (Auto) (1.0-4.3) K/uL [place] # (Auto) (0.0-0.8) K/uL Eos # (Auto) (0.0-0.7) K/uL Baso # (Auto) (0.0-0.2) K/uL Puncture Site Lr pCO2 25 L (35-45) mm/Hg pO2 85 (80-100) mm/Hg HCO3 22.9 (21-28) mmol/L ABG pH 7.49 H (7.35-7.45) ABG Total CO2 19.9 L (22-28) mmol/L ABG O2 Saturation 97.9 (95-98) % ABG Base Excess -2.6 L (-2.0-3.0) mmol/L Jaden Test Po ABG Potassium 3.6 (3.6-5.2) mmol/L A-a O2 Difference 33.0 mm/Hg Respiratory Index 0.4 Sodium 143.0 (132-148) mmol/l Chloride 118.0 H (98-107) mmol/L Glucose 154 H (65-105) mg/dl Lactate 0.9 (0.7-2.1) mmol/L FiO2 21.0 % Potassium (3.6-5.2) mmol/L Carbon Dioxide (22-30) mmol/L Anion Gap (10-20) BUN (7-17) mg/dL Creatinine (0.7-1.2) mg/dL Est GFR ( Amer) Est GFR (Non-Af Amer) POC Glucose (mg/dL) 202 H (65-110) mg/dL Random Glucose (65-105) mg/dL Calcium (8.6-10.4) mg/dl Phosphorus (2.5-4.5) mg/dL Magnesium (1.6-2.3) mg/dL Total Bilirubin (0.2-1.3) mg/dL AST (14-36) U/L ALT (9-52) U/L Alkaline Phosphatase (38-126) U/L Total Protein (6.3-8.3) g/dL Albumin (3.5-5.0) g/dL Globulin (2.2-3.9) gm/dL Albumin/Globulin Ratio (1.0-2.1) Arterial Blood Potassium 3.6 (3.6-5.2) mmol/L Laboratory Results - last 24 hr 12/29/18 12/29/18 12/29/18 16:20 18:29 21:00 WBC RBC Hgb Hct MCV MCH MCHC RDW Plt Count MPV Neut % (Auto) Lymph % (Auto) [place] % (Auto) Eos % (Auto) Baso % (Auto) Neut # (Auto) Lymph # (Auto) [place] # (Auto) Eos # (Auto) Baso # (Auto) Puncture Site Lr pCO2 25 L pO2 85 HCO3 22.9 ABG pH 7.49 H ABG Total CO2 19.9 L ABG O2 Saturation 97.9 ABG Base Excess -2.6 L Jaden Test Po ABG Potassium 3.6 A-a O2 Difference 33.0 Respiratory Index 0.4 Sodium 143.0 Chloride 118.0 H Glucose 154 H Lactate 0.9 FiO2 21.0 Potassium Carbon Dioxide Anion Gap BUN Creatinine Est GFR ( Amer) Est GFR (Non-Af Amer) POC Glucose (mg/dL) 202 H 165 H Random Glucose Calcium Phosphorus Magnesium Total Bilirubin AST ALT Alkaline Phosphatase Total Protein Albumin Globulin Albumin/Globulin Ratio Arterial Blood Potassium 3.6 12/30/18 12/30/18 04:20 04:20 WBC 10.7 RBC 4.11 Hgb 10.5 L Hct 33.6 L MCV 81.7 MCH 25.4 L MCHC 31.1 L RDW 18.5 H Plt Count 416 H MPV 8.6 Neut % (Auto) 79.4 H Lymph % (Auto) 15.1 L [place] % (Auto) 5.0 Eos % (Auto) 0.1 Baso % (Auto) 0.4 Neut # (Auto) 8.5 H Lymph # (Auto) 1.6 [place] # (Auto) 0.5 Eos # (Auto) 0.0 Baso # (Auto) 0.0 Puncture Site pCO2 pO2 HCO3 ABG pH ABG Total CO2 ABG O2 Saturation ABG Base Excess Jaden Test ABG Potassium A-a O2 Difference Respiratory Index Sodium 136 Chloride 113 H Glucose Lactate FiO2 Potassium 5.2 Carbon Dioxide 20 L Anion Gap 8 L BUN 21 H Creatinine 0.9 Est GFR ( Amer) > 60 Est GFR (Non-Af Amer) > 60 POC Glucose (mg/dL) Random Glucose 169 H D Calcium 7.6 L Phosphorus 3.3 Magnesium 1.8 Total Bilirubin 0.9 AST 31 ALT 16 Alkaline Phosphatase 79 Total Protein 5.6 L Albumin 2.5 L Globulin 3.0 Albumin/Globulin Ratio 0.8 L Arterial Blood Potassium Fingerstick Blood Sugar Results: 202 Review of Systems - Review of Systems Systems not reviewed;Unavailable: Uncooperative Critical Care Progress Note - Prophylaxis GI Prophylaxis GI: Pepsid - Prophylaxis DVT Prophylaxis DVT: Not Indicated - Nutrition Nutrition: Nutrition Category Date Time Status Liquid Diet [DIET] Diets 12/26/18 Breakfast Active Assessment/Plan - Assessment and Plan (Free Text) Assessment: 73 F w/ PMhx CHF, CKD, Afib presented to hospital elevated digoxin level, low hemoglobin, transferred to ICU for sepsis, elevated leukocytosis, and distended abdomen. Patient is C. diff positive, on contact isolation ( was previously on kaflex for dental infection & ceftriaxone). Patient is improving, with WBC downtrending, afebrile > 24H, H/H stable. Patient has resolving acute w/ chronic renal failure Patient is more awake, responsive. Patient producing about 40 cc/hr. Repeat abx xray indicating dilated bowel, tolerating clear liquid diet. Patient currently nonverbal, however medically, patient is clinically improving with WBC downtrend, H/H stable, less frequent diarrhea. Patient is stable for medical-surg transfer. 1) Colitis secondary to C. diff - improving 2) Acute anemia - stable 3) Sepsis - resolved 4) Acute on chronic renal failure - resolving 5) paroxysmal afib 6) Depression - stable 7) Left adrenal nodule - outpatient f/u Plan: Neuro - A&O x 3 Cardio - vitals WNL - hx of afib, chx - restart eliquis 2.5 BID - repeat EKG, sinus tachycardia Pulm - vitals WNL - continue to monitor - d/c oxygen requirement GI - colitis - C. diff positive - stool occult +, stable H/H despite resumption of eliquis - flagyl & vancomyicin ( see below) - d/c vazquez Heme - H/H stable, stable H/H despite resumption of eliquis - WBC downtrending, now to 10 - afebrile >48 Hr, Lactate wnl - U/C negative, Blood cultures negative - C. diff positive - c/w vancomyocin 250mg PO QID, flagyl 500 mg IVPB Q8H - Florastor TID Endo - BS 150s - ISS - hypoglycemia protocol Renal - Elevated BUN/Cr 21/0.9 - Acute on chronic renal failure improving - D5 NS 75 cc/hr - replenish electrolytes Psych - hx of depression/anxiety - patient started on remeron 30 mg HS & venlafaxine 150 mg daily, and ambien PRN - hold ambien currently - hold AM venlafaxine - will re-assess in AM regarding drowsy state PPx - DVT: Heparin 5000 units Q12 - GI: Pepcid 20mg IVP daily <Keagan Soares - Last Filed: 01/01/19 11:55> CCU Objective - Vital Signs / Intake & Output Vital Signs (Last 4 hours): Vital Signs Temp 01/01/19 08:09 97.8 F Intake and Output (Last 8hrs): Intake & Output 12/31/18 01/01/19 01/01/19 21:59 06:59 14:59 Intake Total 300 Output Total 400 Balance -100 Intake: Oral 300 Output: Urine 400 Urine, Voided 400 Urine/Stool Mix Other: # Bowel Movements 2 - Medications Active Medications: Active Medications Generic Name Dose Route Start Last Admin Trade Name Jesseq PRN Reason Stop Dose Admin Apixaban 2.5 mg 12/28/18 11:45 01/01/19 08:59 Eliquis PO 2.5 mg Q12 SHIRA Administration Aspirin 81 mg 12/28/18 12:15 01/01/19 08:59 Ecotrin PO 81 mg DAILY SHIRA Administration Famotidine 20 mg 12/30/18 10:00 01/01/19 08:59 Pepcid PO 20 mg DAILY SHIRA Administration Insulin Human Regular 0 unit 12/23/18 16:30 01/01/19 08:30 Novolin R SC 1 units ACHS [facility]A Administration Protocol Metoprolol Succinate 25 mg 12/30/18 18:00 12/31/18 17:17 Toprol Xl PO 25 mg QPM [facility]A Administration Metronidazole 500 mg 12/30/18 14:00 01/01/19 05:59 Flagyl PO 500 mg Q8 SHIRA Administration Mirtazapine 30 mg 12/28/18 22:00 12/31/18 22:04 Remeron PO 30 mg HS SHIRA Administration Vancomycin HCl 250 mg 12/24/18 10:15 01/01/19 08:59 Vancocin 250mg Capsule PO 250 mg QID [facility]A Administration Venlafaxine HCl 150 mg 12/28/18 10:00 12/28/18 09:30 Effexor PO 150 mg DAILY SHIRA Administration - Patient Studies Lab Studies: Lab Studies 01/01/19 01/01/19 12/31/18 Range/Units 06:24 06:23 11:17 WBC 7.6 (4.8-10.8) K/uL RBC 4.19 (3.80-5.20) Mil/uL Hgb 10.7 L (11.0-16.0) g/dL Hct 34.3 (34.0-47.0) % MCV 81.8 (81.0-99.0) fL MCH 25.6 L (27.0-31.0) pg MCHC 31.3 L (33.0-37.0) g/dL RDW 18.9 H (11.5-14.5) % Plt Count 410 H (130-400) K/uL MPV 8.6 (7.2-11.7) fL Neut % (Auto) 71.3 (50.0-75.0) % Lymph % (Auto) 23.3 (20.0-40.0) % [place] % (Auto) 5.2 (0.0-10.0) % Eos % (Auto) 0.0 (0.0-4.0) % Baso % (Auto) 0.2 (0.0-2.0) % Neut # (Auto) 5.4 (1.8-7.0) K/uL Lymph # (Auto) 1.8 (1.0-4.3) K/uL [place] # (Auto) 0.4 (0.0-0.8) K/uL Eos # (Auto) 0.0 (0.0-0.7) K/uL Baso # (Auto) 0.0 (0.0-0.2) K/uL Sodium 135 (132-148) mmol/L Potassium 4.0 (3.6-5.2) mmol/L Chloride 105 (98-107) mmol/L Carbon Dioxide 23 (22-30) mmol/L Anion Gap 10 (10-20) BUN 17 (7-17) mg/dL Creatinine 0.9 (0.7-1.2) mg/dL Est GFR ( Amer) > 60 Est GFR (Non-Af Amer) > 60 POC Glucose (mg/dL) 244 H (65-110) mg/dL Random Glucose 121 H (65-105) mg/dL Calcium 7.9 L (8.6-10.4) mg/dl Phosphorus 3.7 (2.5-4.5) mg/dL Magnesium 1.6 (1.6-2.3) mg/dL Total Bilirubin 0.5 (0.2-1.3) mg/dL AST 23 (14-36) U/L ALT 14 (9-52) U/L Alkaline Phosphatase 85 (38-126) U/L Total Protein 5.4 L (6.3-8.3) g/dL Albumin 2.5 L (3.5-5.0) g/dL Globulin 2.9 (2.2-3.9) gm/dL Albumin/Globulin Ratio 0.8 L (1.0-2.1) Laboratory Results - last 24 hr 12/31/18 01/01/19 01/01/19 11:17 06:23 06:24 WBC 7.6 RBC 4.19 Hgb 10.7 L Hct 34.3 MCV 81.8 MCH 25.6 L MCHC 31.3 L RDW 18.9 H Plt Count 410 H MPV 8.6 Neut % (Auto) 71.3 Lymph % (Auto) 23.3 [place] % (Auto) 5.2 Eos % (Auto) 0.0 Baso % (Auto) 0.2 Neut # (Auto) 5.4 Lymph # (Auto) 1.8 [place] # (Auto) 0.4 Eos # (Auto) 0.0 Baso # (Auto) 0.0 Sodium 135 Potassium 4.0 Chloride 105 Carbon Dioxide 23 Anion Gap 10 BUN 17 Creatinine 0.9 Est GFR ( Amer) > 60 Est GFR (Non-Af Amer) > 60 POC Glucose (mg/dL) 244 H Random Glucose 121 H Calcium 7.9 L Phosphorus 3.7 Magnesium 1.6 Total Bilirubin 0.5 AST 23 ALT 14 Alkaline Phosphatase 85 Total Protein 5.4 L Albumin 2.5 L Globulin 2.9 Albumin/Globulin Ratio 0.8 L Critical Care Progress Note - Nutrition Nutrition: Nutrition Category Date Time Status Heart Healthy Diet [DIET] Diets 12/30/18 Dinner Active Attending/Attestation - Attestation I have personally seen and examined this patient.: Yes I have fully participated in the care of the patient.: Yes I have reviewed all pertinent clinical information: Yes Notes (Text): The Patient was seen and examined at the bedside, Medical records reviewed, and management issues were discussed and formulated with the house staff. I have reviewed all the relevant clinical, laboratory, hemodynamic, radiographic data and medications Events reviewed Pain issues, skin care, head of the bed elevation, glycemic control were addressed. Agree with above resident's assessment and treatment plans of care as transcribed in Dr. Tijerina's note.
[2018-12-30] MEDS: (Novolin R) Insulin Human Regular 100 units/ml vial SC SCH ×4 (08:49→21:54)
[2018-12-30] MEDS: Vancomycin Hydrochloride 250 mg Capsule (Oral) PO SCH ×5 (09:14→22:27)
[2018-12-30] MEDS: Metoprolol Succinate 12.5 mg XL Tab PO SCH (09:15)
--- NOTE | 2018-12-30 10:59 | CP.PCM.PN ---
Subjective - Date & Time of Evaluation Date of Evaluation: 12/30/18 Time of Evaluation: 10:57 - Subjective Subjective: + Diarrhea Poor appetite Somewhat agitated and uncoopperative, refusing medications Objective - Vital Signs/Intake and Output Vital Signs (last 24 hours): Temp Pulse Resp BP Pulse Ox 98 F 115 H 27 H 153/96 H 93 L 12/30/18 08:00 12/30/18 09:00 12/30/18 09:00 12/30/18 08:58 12/30/18 09:00 Intake and Output: 12/30/18 12/30/18 06:59 18:59 Intake Total 775 250 Balance 775 250 - Medications Medications: Current Medications Apixaban (Eliquis) 2.5 mg PO Q12 [facility] Last Admin: 12/30/18 09:15 Dose: 2.5 mg Aspirin (Ecotrin) 81 mg PO DAILY [facility] Last Admin: 12/30/18 09:33 Dose: 81 mg Famotidine (Pepcid) 20 mg PO DAILY [facility] Last Admin: 12/30/18 09:15 Dose: 20 mg Metronidazole (Flagyl) 500 mg in 100 mls @ 100 mls/hr IVPB Q8H [facility]; Protocol Last Admin: 12/30/18 08:00 Dose: 100 mls/hr Potassium Chloride 20 meq/ (Dextrose/Sodium Chloride) 1,010 mls @ 75 mls/hr IV .[id number] [facility] Last Admin: 12/30/18 02:59 Dose: Not Given Insulin Human Regular (Novolin R) 0 unit SC ACHS [facility]; Protocol Last Admin: 12/30/18 08:49 Dose: 1 units Metoprolol Succinate (Toprol Xl) 12.5 mg PO DAILY [facility] Last Admin: 12/30/18 09:15 Dose: 12.5 mg Mirtazapine (Remeron) 30 mg PO HS [facility] Last Admin: 12/29/18 22:11 Dose: 30 mg Vancomycin HCl (Vancocin 250mg Capsule) 250 mg PO QID [facility] Last Admin: 12/30/18 09:14 Dose: 250 mg Venlafaxine HCl (Effexor) 150 mg PO DAILY [facility] Last Admin: 12/28/18 09:30 Dose: 150 mg - Labs Labs: 12/30/18 04:20 12/30/18 04:20 PT 22.6 SECONDS (9.7-12.2) H D 12/24/18 14:57 INR 2.1 D 12/24/18 14:57 APTT 33 SECONDS (21-34) 12/24/18 14:57 - Constitutional Appears: Chronically Ill - Respiratory Exam Respiratory Exam: NORMAL BREATHING PATTERN - Cardiovascular Exam Cardiovascular Exam: Tachycardia - GI/Abdominal Exam GI & Abdominal Exam: Distended, Soft. absent: Tenderness (decreasing distension) - Psychiatric Exam Psychiatric exam: Agitated Assessment and Plan (1) Clostridium difficile colitis Assessment & Plan: gradually improving Continue meds Advance to solids Status: Acute
--- NOTE | 2018-12-30 14:15 | CP.PCM.PN ---
Subjective - Date & Time of Evaluation Date of Evaluation: 12/30/18 Time of Evaluation: 14:14 - Subjective Subjective: Nephrology Consultation Note: Assessment: stable Acute Kidney Injury (N17.9) likely due to ATN due to sepsis, IV contrast C.Diff colitis, hagma with respi compensation, hyponatremia hypocalcemia Diabetic chronic Kidney Disease (E11.22) Hypertensive Chronic Kidney Disease (I12.9) Chronic Kidney Disease (N18.3) Stage 3 with ? mg proteinuria (R80.9) Anemia (D64.9) hx of dig toxicity, A fib, CVA, hypothyroidism left adrenal nodule Plan No acute need for renal replacement therapy at this time. renal function improving Hypertension control with meds as ordered. Maintain hemodynamics stable. Avoid hypotension. Patient not on ACEI/ARB due to recent LOUIE, can add if needed for elevated BP. increase toprol XL to 25 mg/d Monitor Input/Output, daily weights and renal function with basic metabolic panel supplement lytes as needed can lower IVF to 50 ml/hr. left adrenal nodule work up as outpt Dose meds/antibiotics for improved GFR. Glycemic control Further work up/management as per primary team Thanks for allowing me to participate in care of your patient. Will follow patient with you. Please call if any Qs. had d/w team Dr Raghu Solis Office: [phone] Chief Complaint; pain abdomen Reason for consult: Acute Kidney Injury HPI: Pt is a 73 F with hx of diabetes Mellitus ( years), hypertension (years) CKD 3 with baseline cr 1.2-1.4, hx of dig toxicity, A fib, CVA, hypothyroidism presented with complaints of pain abdomen and being managed for sepsis, colitis, transferred to ICU Denies OTC/herbal meds or NSAIDs Noted recent iodinated contrast exposure. Noted obvious episodes of low BP (99/61). pt not aware about kidney disease in past ROS: Cardiovascular: No chest pain. Pulmonary: No shortness of breath Gastrointestinal: improved abdominal pain No nausea. No vomiting. Genitourinary: No pain while urinating. Denies blood in urine. All other negative except as mentioned in HPI Physical Examination: General Appearance: comfortable, in no acute respiratory distress, co-operative . better appearing Vitals reviewed and noted as below Head; Atraumatic, normocephalic ENT: no ulcers no thrush. Tongue is midline. Oropharynx: no rash or ulcers. EYES: Pupils are equal, round and reactive to light accommodation. Eye muscles and extraocular movement intact. Sclera is anicteric. Neck; supple no lymphadenopathy, no thyromegaly or bruit Lungs: Normal respiratory rate/effort. Breath sounds bilateral equal and clear Heart: Increased rate. s1s2 normal. No rub or gallop. Extremities: no edema. No varicose veins Neurological: Patient is alert, awake No focal deficit. Strength bilateral appropriate and equal. confused Skin: Warm and dry. Normal turgor. No rash. Palpitation: Normal elasticity for age Abdomen: Abdomen is soft. Bowel sounds +. There is distension with abdominal tenderness, no guarding/rigidity no organomegaly Psych: limited insight and normal affect/mood MSK: no joint tenderness or swelling. Digits and nails normal, no deformity : kidney or bladder not palpable Labs/imaging reviewed. Past medical history, past surgical history, family history, social history, allergy reviewed and noted as below Family hx: no hx of CKD. Rest non-contributory Objective - Vital Signs/Intake and Output Vital Signs (last 24 hours): Temp Pulse Resp BP Pulse Ox 98 F 115 H 27 H 153/96 H 93 L 12/30/18 08:00 12/30/18 09:00 12/30/18 09:00 12/30/18 08:58 12/30/18 09:00 Intake and Output: 12/30/18 12/30/18 06:59 18:59 Intake Total 775 250 Balance 775 250 - Medications Medications: Current Medications Apixaban (Eliquis) 2.5 mg PO Q12 [facility] Last Admin: 12/30/18 09:15 Dose: 2.5 mg Aspirin (Ecotrin) 81 mg PO DAILY [facility] Last Admin: 12/30/18 09:33 Dose: 81 mg Famotidine (Pepcid) 20 mg PO DAILY [facility] Last Admin: 12/30/18 09:15 Dose: 20 mg Potassium Chloride 20 meq/ (Dextrose/Sodium Chloride) 1,010 mls @ 50 mls/hr IV .[id number] [facility] Insulin Human Regular (Novolin R) 0 unit SC ACHS [facility]; Protocol Last Admin: 12/30/18 13:15 Dose: 1 units Metoprolol Succinate (Toprol Xl) 25 mg PO QPM [facility] Metronidazole (Flagyl) 500 mg PO Q8 [facility] Mirtazapine (Remeron) 30 mg PO HS [facility] Last Admin: 12/29/18 22:11 Dose: 30 mg Vancomycin HCl (Vancocin 250mg Capsule) 250 mg PO QID [facility] Last Admin: 12/30/18 09:14 Dose: 250 mg Venlafaxine HCl (Effexor) 150 mg PO DAILY [facility] Last Admin: 12/28/18 09:30 Dose: 150 mg - Labs Labs: 12/30/18 04:20 12/30/18 04:20 PT 22.6 SECONDS (9.7-12.2) H D 12/24/18 14:57 INR 2.1 D 12/24/18 14:57 APTT 33 SECONDS (21-34) 12/24/18 14:57
[2018-12-30] MEDS ORDERED: Potassium Chloride 20 MEQ in Dextrose 5%/0.9% NS 1,000 ML IV SCH (14:30)
--- NOTE | 2018-12-30 17:21 | RAD ---
Date of service: 12/30/2018 HISTORY: CHF COMPARISON: 12/24/2018. FINDINGS: LUNGS: There are low lung volumes. There is mild pulmonary venous congestion. There is subsegmental atelectasis in the lower lobes. PLEURA: Suspect small effusions. No pneumothorax. CARDIOVASCULAR: There is mild cardiomegaly. There are aortic atherosclerotic calcifications present. OSSEOUS STRUCTURES: Within normal limits for the patient's age. VISUALIZED UPPER ABDOMEN: Normal. OTHER FINDINGS: None. IMPRESSION: Mild congestive heart failure. No significant interval change.
--- NOTE | 2018-12-30 17:36 | CP.PCM.PN ---
Subjective - Date & Time of Evaluation Date of Evaluation: 12/30/18 Time of Evaluation: 08:00 - Subjective Subjective: awake alert NAD afebrile c/o abd pain +LBM x 2 today Objective - Vital Signs/Intake and Output Vital Signs (last 24 hours): Temp Pulse Resp BP Pulse Ox 97.9 F 102 H 19 130/66 99 12/30/18 12:00 12/30/18 16:00 12/30/18 16:00 12/30/18 17:25 12/30/18 16:00 Intake and Output: 12/30/18 12/30/18 06:59 18:59 Intake Total 775 575 Output Total 2 Balance 775 573 - Medications Medications: Current Medications Apixaban (Eliquis) 2.5 mg PO Q12 [facility] Last Admin: 12/30/18 09:15 Dose: 2.5 mg Aspirin (Ecotrin) 81 mg PO DAILY [facility] Last Admin: 12/30/18 09:33 Dose: 81 mg Famotidine (Pepcid) 20 mg PO DAILY [facility] Last Admin: 12/30/18 09:15 Dose: 20 mg Insulin Human Regular (Novolin R) 0 unit SC [facility]; Protocol Last Admin: 12/30/18 16:55 Dose: 2 units Metoprolol Succinate (Toprol Xl) 25 mg PO QPM [facility] Metronidazole (Flagyl) 500 mg PO Q8 [facility] Mirtazapine (Remeron) 30 mg PO HS [facility] Last Admin: 12/29/18 22:11 Dose: 30 mg Vancomycin HCl (Vancocin 250mg Capsule) 250 mg PO QID [facility] Last Admin: 12/30/18 14:00 Dose: 250 mg Venlafaxine HCl (Effexor) 150 mg PO DAILY [facility] Last Admin: 12/28/18 09:30 Dose: 150 mg - Labs Labs: 12/30/18 04:20 12/30/18 04:20 PT 22.6 SECONDS (9.7-12.2) H D 12/24/18 14:57 INR 2.1 D 12/24/18 14:57 APTT 33 SECONDS (21-34) 12/24/18 14:57 - Constitutional Appears: No Acute Distress, Cachectic, Chronically Ill - Head Exam Head Exam: NORMOCEPHALIC - Eye Exam Eye Exam: absent: Scleral icterus - ENT Exam ENT Exam: Mucous Membranes Dry - Neck Exam Neck Exam: absent: Lymphadenopathy - Respiratory Exam Respiratory Exam: Decreased Breath Sounds, Clear to Ausculation Bilateral - Cardiovascular Exam Cardiovascular Exam: REGULAR RHYTHM, +S1, +S2 - GI/Abdominal Exam GI & Abdominal Exam: Distended, Soft - Rectal Exam Rectal Exam: Deferred - Exam Exam: NORMAL INSPECTION Assessment and Plan (1) Abdominal pain Status: Acute (2) Colitis Status: Acute (3) Sepsis Status: Acute (4) Depressed Status: Acute (5) Renal insufficiency Status: Acute (6) Change in mental status Status: Chronic (7) Dementia Status: Chronic (8) LOUIE (acute kidney injury) Status: Resolved (9) Atrial fibrillation with RVR Status: Resolved (10) Congestive cardiac failure Status: Resolved (11) Renal insufficiency Status: Resolved (12) CVA (cerebral vascular accident) Status: Ruled-out (13) Seizures Status: Ruled-out - Assessment and Plan (Free Text) Assessment: cont rx for c diff for 10-14 days maintain isolation
[2018-12-30] MEDS: Metoprolol Succinate 25 mg XL Tab PO SCH (18:17)
--- NOTE | 2018-12-30 20:43 | PN ---
DATE: 12/30/2018 SUBJECTIVE: The patient is seen with her brother, very anxious about the patient. The patient is still not eating. Currently on Remeron and also the Effexor is still on hold. The patient said she would try to eat. The patient is still in ICU. Behavior of the patient seems to be regressed. REVIEW OF SYSTEMS: The patient is feeling weak, but alert, conversing when seen, with her brother. PHYSICAL EXAMINATION: VITAL SIGNS: Temperature 98, pulse 115, blood pressure 153/92, respiration is 27, oxygen saturation 93%. SKIN: No pruritus. HEENT: No headache. No dizziness. NECK: Supple. RESPIRATORY: No dyspnea. CARDIOVASCULAR: No chest pain. GASTROINTESTINAL: Appetite is variable. EXTREMITIES: Moving extremities. MUSCULOSKELETAL: Feels weak. NEUROLOGIC: Alert with some periods of confusion. GENITOURINARY: No complaints of urinary problems. MENTAL STATUS EXAMINATION: Elderly female, seen in the room with her brother. Mood still dysphoric. Affect is restricted. Speech is slow. Thought process, confused at this time. Thought content, the patient has no overt psychosis. No suicidal ideation. The patient is not eating. Attention and memory seems to be limited. Insight and judgement, limited. Impulse control is fair. IMPRESSION: Recurrent depression and anxiety. PLAN AND RECOMMENDATION: The patient is seen. Meds were reviewed. The patient is still in intensive care unit. Continue present management. The patient encouraged to eat. I told the brother if the patient's depressive symptoms continue to worsen, we will put her back to [facility] once she is medically cleared. Alexandre Kumari MD
--- NOTE | 2018-12-30 21:32 | PN ---
DATE: 12/30/2018 SUBJECTIVE: The patient is mildly short of breath and is in sinus tachycardia on a monitor. PHYSICAL EXAMINATION: VITAL SIGNS: Blood pressure 138/73, heart rate 118, respiration 19, temperature 97.9. HEENT: Normocephalic. CHEST: Bibasilar coarse crepitations. HEART: S1 and S2. Regular. EXTREMITIES: Trace leg edema. LABORATORY DATA: Hemoglobin and hematocrit 10.5 and 33.6. White count 10.7, platelet count 417,000. Today's SMA-7, sodium 136, potassium 5.2, chloride 113, CO2 of 20, glucose 169, BUN 21, creatinine 0.9. ASSESSMENT: 1. Clostridium difficile colitis. 2. Sinus tachycardia. 3. Rule out volume overload. 5. History of paroxysmal atrial fibrillation. 6. Diabetes mellitus. RECOMMENDATIONS: Continue aspirin 81 mg once a day, Effexor 150 mg once a day, Eliquis 2.5 mg twice a day, Toprol XL 25 mg once a day, vancomycin 250 mg p.o. q.i.d. I will administer one dose of Lasix 20 mg IV push and obtain a portable chest x-ray. Sukhdev Dave MD
[2018-12-31 06:46] LABS: BASO % 0.2 % (0.0-2.0); HEMOGLOBIN 10.3 g/dL (11.0-16.0); LYMPH # 1.9 K/uL (1.0-4.3); LYMPH % 19.9 % (20.0-40.0); MEAN CELL VOLUME 80.7 fL (81.0-99.0); MEAN CORPUSCULAR HEMOGLOBIN 25.6 pg (27.0-31.0); MEAN CORPUSCULAR HGB CONC 31.7 g/dL (33.0-37.0); MEAN PLATELET VOLUME 8.6 fL (7.2-11.7); MONO # 0.5 K/uL (0.0-0.8); MONO % 5.1 % (0.0-10.0); NEUT # 7.1 K/uL (1.8-7.0); NEUT % 74.8 % (50.0-75.0); RBC 4.05 Mil/uL (3.80-5.20); RED CELL DISTRIBUTION WIDTH 18.5 % (11.5-14.5); WHITE BLOOD COUNT 9.6 K/uL (4.8-10.8)
[2018-12-31 06:58] LABS: ALB/GLOB RATIO 0.8 (1.0-2.1); ALBUMIN 2.6 g/dL (3.5-5.0); ALT/SGPT 18 U/L (9-52); AST/SGOT 31 U/L (14-36); BLOOD UREA NITROGEN 18 mg/dL (7-17); CALCIUM 7.9 mg/dl (8.6-10.4); GFR NON-AFRICAN AMERICAN > 60
[2018-12-31] MEDS: (Novolin R) Insulin Human Regular 100 units/ml vial SC SCH ×4 (08:28→22:05)
[2018-12-31] MEDS: Vancomycin Hydrochloride 250 mg Capsule (Oral) PO SCH ×4 (09:04→22:04)
--- NOTE | 2018-12-31 13:00 | CP.PCM.PN ---
Subjective - Date & Time of Evaluation Date of Evaluation: 12/31/18 Time of Evaluation: 12:58 - Subjective Subjective: COVERING DR BROWN/BAYLEE Less pain and diarrhea according to patient. sitting in chair Objective - Vital Signs/Intake and Output Vital Signs (last 24 hours): Temp Pulse Resp BP Pulse Ox 98.1 F 106 H 22 152/92 H 99 12/31/18 08:00 12/31/18 04:00 12/31/18 04:00 12/31/18 04:00 12/31/18 04:00 Intake and Output: 12/31/18 12/31/18 06:59 18:59 Intake Total 420 Output Total 800 Balance -380 - Medications Medications: Current Medications Apixaban (Eliquis) 2.5 mg PO Q12 [facility] Last Admin: 12/31/18 09:04 Dose: 2.5 mg Aspirin (Ecotrin) 81 mg PO DAILY [facility] Last Admin: 12/31/18 09:04 Dose: 81 mg Famotidine (Pepcid) 20 mg PO DAILY [facility] Last Admin: 12/31/18 09:04 Dose: 20 mg Insulin Human Regular (Novolin R) 0 unit SC [facility]; Protocol Last Admin: 12/31/18 08:28 Dose: Not Given Metoprolol Succinate (Toprol Xl) 25 mg PO QPM [facility] Last Admin: 12/30/18 18:17 Dose: 25 mg Metronidazole (Flagyl) 500 mg PO Q8 [facility] Last Admin: 12/31/18 06:37 Dose: 500 mg Mirtazapine (Remeron) 30 mg PO HS [facility] Last Admin: 12/30/18 22:28 Dose: 30 mg Vancomycin HCl (Vancocin 250mg Capsule) 250 mg PO QID [facility] Last Admin: 12/31/18 09:04 Dose: 250 mg Venlafaxine HCl (Effexor) 150 mg PO DAILY [facility] Last Admin: 12/28/18 09:30 Dose: 150 mg - Labs Labs: 12/31/18 06:42 12/31/18 06:42 PT 22.6 SECONDS (9.7-12.2) H D 12/24/18 14:57 INR 2.1 D 12/24/18 14:57 APTT 33 SECONDS (21-34) 12/24/18 14:57 - Constitutional Appears: No Acute Distress - Head Exam Head Exam: ATRAUMATIC, NORMOCEPHALIC - Eye Exam Eye Exam: EOMI, PERRL - Respiratory Exam Respiratory Exam: NORMAL BREATHING PATTERN - Cardiovascular Exam Cardiovascular Exam: REGULAR RHYTHM - GI/Abdominal Exam GI & Abdominal Exam: Distended, Soft, Hyperactive Bowel Sounds. absent: Tenderness, Mass, Rebound - Extremities Exam Extremities Exam: Normal Inspection Assessment and Plan (1) Lower abdominal pain Assessment & Plan: somewhat improved. Status: Acute (2) Clostridium difficile colitis Assessment & Plan: Continue current therapy. ID follow up appreciated. Advance diet as tolerated. Status: Acute
[2018-12-31] MEDS: Metoprolol Succinate 25 mg XL Tab PO SCH (17:17)
--- NOTE | 2018-12-31 18:51 | PN ---
DATE: 12/31/2018 SUBJECTIVE: The patient denied chest pain. She still appears depressed. PHYSICAL EXAMINATION: VITAL SIGNS: Blood pressure 152/92, heart rate 106, temperature 98.1 and respirations 22. HEENT: Normocephalic. CHEST: Bibasilar rhonchi. HEART: S1 and S2, regular. EXTREMITIES: 1+ edema. LABORATORY DATA: Today's hemoglobin and hematocrit 10.3 and 32.6. White count 9.6 and platelet count 425,000. Today's SMA-7: Sodium 136, potassium 4.5, chloride 111, CO2 of 28, glucose 148, BUN 18, creatinine 0.9. Yesterday's chest x-ray revealed prominent bronchovascular markings. Official report, questionable mild congestive heart failure. ASSESSMENT: 1. Clostridium difficile colitis. 2. Pulmonary vascular congestion. 3. Depression. 4. Paroxysmal atrial fibrillation. RECOMMENDATIONS: Continue aspirin 81 mg once a day, Effexor 150 mg once a day, Eliquis 2.5 mg twice a day, Flagyl 500 mg p.o. every 8 hours, Lasix 20 mg p.o. once a day, Toprol XL 25 mg once a day, oral vancomycin 250 mg 4 times a day. The plan is to transfer the patient to psych cuevas at [facility]. Sukhdev Dave MD
--- NOTE | 2018-12-31 20:58 | PN ---
DATE: 12/31/2018 SUBJECTIVE: The patient is seen, she is more alert, but according to the nurse in duty, she is not eating well, although the patient prefers to eat ice cream. She was seen with her brother, the patient does not want to go back to the rehab, but wants to go home. The patient's Effexor is currently on hold, especially her blood pressure is elevated, and the patient is only on Remeron 30 mg at bedtime, but the review of her medication showed that the patient is taking Flagyl which can cause a loss of appetite as side effect. REVIEW OF SYSTEMS: The patient is seen in her room alert but with minimal verbal output. She was seen with her brother in ICU bed 2. PHYSICAL EXAMINATION: VITAL SIGNS: Temperature 98.1, blood pressure 152/92, respiration is 22, oxygen saturation 99%. SKIN: No diaphoresis. HEENT: No headache. No dizziness. NECK: Supple. RESPIRATORY: No dyspnea. CARDIOVASCULAR: No chest pain. GASTROINTESTINAL: Has poor appetite. No nausea, vomiting, or abdominal pain. EXTREMITIES: The patient is moving extremities. MUSCULOSKELETAL: Feels weak. NEUROLOGIC: Alert with some periods of confusion. GENITOURINARY: No urinary problems. MENTAL STATUS EXAMINATION: Elderly female, who looks stated age. Mood is dysphoric, depressed. Speech is slow. Affect is restricted. Thought process, confused at this time. Thought content, the patient does not want to go for subacute rehab, and she wants to go home. No overt psychosis. No suicidal or homicidal ideation. Attention and memory limited. Insight and judgement, limited. Impulse control is fair at this time. IMPRESSION: Recurrent depression and anxiety, presence of colitis. PLAN AND RECOMMENDATION: The patient's meds were reviewed. Continue present management. Effexor is in hold due to her elevated blood pressure. If the patient's mood continues deteriorate, we will refer her to [facility] for inpatient treatment. Alexandre Kumari MD
[2019-01-01 06:34] LABS: BASO % 0.2 % (0.0-2.0); HEMOGLOBIN 10.7 g/dL (11.0-16.0); LYMPH # 1.8 K/uL (1.0-4.3); LYMPH % 23.3 % (20.0-40.0); MEAN CELL VOLUME 81.8 fL (81.0-99.0); MEAN CORPUSCULAR HEMOGLOBIN 25.6 pg (27.0-31.0); MEAN CORPUSCULAR HGB CONC 31.3 g/dL (33.0-37.0); MEAN PLATELET VOLUME 8.6 fL (7.2-11.7); MONO # 0.4 K/uL (0.0-0.8); MONO % 5.2 % (0.0-10.0); NEUT # 5.4 K/uL (1.8-7.0); NEUT % 71.3 % (50.0-75.0); RBC 4.19 Mil/uL (3.80-5.20); RED CELL DISTRIBUTION WIDTH 18.9 % (11.5-14.5); WHITE BLOOD COUNT 7.6 K/uL (4.8-10.8)
[2019-01-01 06:45] LABS: ALB/GLOB RATIO 0.8 (1.0-2.1); ALBUMIN 2.5 g/dL (3.5-5.0); ALT/SGPT 14 U/L (9-52); AST/SGOT 23 U/L (14-36); BLOOD UREA NITROGEN 17 mg/dL (7-17); CALCIUM 7.9 mg/dl (8.6-10.4); GFR NON-AFRICAN AMERICAN > 60
[2019-01-01] MEDS: (Novolin R) Insulin Human Regular 100 units/ml vial SC SCH ×4 (08:30→21:55)
[2019-01-01] MEDS: Vancomycin Hydrochloride 250 mg Capsule (Oral) PO SCH ×4 (08:59→21:23)
--- NOTE | 2019-01-01 12:34 | CP.PCM.PN ---
Subjective - Date & Time of Evaluation Date of Evaluation: 01/01/19 Time of Evaluation: 12:34 - Subjective Subjective: No new c/o. Pain and distension reported better. Objective - Vital Signs/Intake and Output Vital Signs (last 24 hours): Temp Pulse Resp BP Pulse Ox 97.8 F 85 18 164/70 H 98 01/01/19 08:09 01/01/19 05:00 01/01/19 05:00 01/01/19 05:00 01/01/19 05:00 Intake and Output: 01/01/19 01/01/19 06:59 18:59 Intake Total 300 Output Total 400 Balance -100 - Medications Medications: Current Medications Apixaban (Eliquis) 2.5 mg PO Q12 [facility] Last Admin: 01/01/19 08:59 Dose: 2.5 mg Aspirin (Ecotrin) 81 mg PO DAILY [facility] Last Admin: 01/01/19 08:59 Dose: 81 mg Famotidine (Pepcid) 20 mg PO DAILY [facility] Last Admin: 01/01/19 08:59 Dose: 20 mg Insulin Human Regular (Novolin R) 0 unit SC [facility]; Protocol Last Admin: 01/01/19 08:30 Dose: 1 units Metoprolol Succinate (Toprol Xl) 25 mg PO QPM [facility] Last Admin: 12/31/18 17:17 Dose: 25 mg Metronidazole (Flagyl) 500 mg PO Q8 [facility] Last Admin: 01/01/19 05:59 Dose: 500 mg Mirtazapine (Remeron) 30 mg PO HS [facility] Last Admin: 12/31/18 22:04 Dose: 30 mg Vancomycin HCl (Vancocin 250mg Capsule) 250 mg PO QID [facility] Last Admin: 01/01/19 08:59 Dose: 250 mg Venlafaxine HCl (Effexor) 150 mg PO DAILY [facility] Last Admin: 12/28/18 09:30 Dose: 150 mg - Labs Labs: 01/01/19 06:23 01/01/19 06:24 PT 22.6 SECONDS (9.7-12.2) H D 12/24/18 14:57 INR 2.1 D 12/24/18 14:57 APTT 33 SECONDS (21-34) 12/24/18 14:57 - Constitutional Appears: No Acute Distress - Head Exam Head Exam: ATRAUMATIC, NORMOCEPHALIC - Respiratory Exam Respiratory Exam: NORMAL BREATHING PATTERN - Cardiovascular Exam Cardiovascular Exam: REGULAR RHYTHM - GI/Abdominal Exam GI & Abdominal Exam: Distended, Soft, Normal Bowel Sounds. absent: Tenderness, Mass, Rebound Assessment and Plan (1) Lower abdominal pain Status: Acute (2) Clostridium difficile colitis Assessment & Plan: Continue Vanco as per ID managed services sales consultant. Appears to be clinically improving. Supportive care. Status: Acute
--- NOTE | 2019-01-01 16:03 | CP.PCM.PN ---
Subjective - Date & Time of Evaluation Date of Evaluation: 01/01/19 Time of Evaluation: 10:00 - Subjective Subjective: seen and examined on rounds labs/ cultures reviewed IV antibiotics adjusted Objective - Vital Signs/Intake and Output Vital Signs (last 24 hours): Temp Pulse Resp BP Pulse Ox 97.8 F 85 18 164/70 H 98 01/01/19 08:09 01/01/19 05:00 01/01/19 05:00 01/01/19 05:00 01/01/19 05:00 Intake and Output: 01/01/19 01/01/19 06:59 18:59 Intake Total 300 Output Total 400 Balance -100 - Medications Medications: Current Medications Apixaban (Eliquis) 2.5 mg PO Q12 [facility] Last Admin: 01/01/19 08:59 Dose: 2.5 mg Aspirin (Ecotrin) 81 mg PO DAILY [facility] Last Admin: 01/01/19 08:59 Dose: 81 mg Famotidine (Pepcid) 20 mg PO DAILY [facility] Last Admin: 01/01/19 08:59 Dose: 20 mg Insulin Human Regular (Novolin R) 0 unit SC [facility]; Protocol Last Admin: 01/01/19 08:30 Dose: 1 units Metoprolol Succinate (Toprol Xl) 25 mg PO QPM [facility] Last Admin: 12/31/18 17:17 Dose: 25 mg Metronidazole (Flagyl) 500 mg PO Q8 [facility] Last Admin: 01/01/19 05:59 Dose: 500 mg Mirtazapine (Remeron) 30 mg PO HS [facility] Last Admin: 12/31/18 22:04 Dose: 30 mg Vancomycin HCl (Vancocin 250mg Capsule) 250 mg PO QID [facility] Last Admin: 01/01/19 08:59 Dose: 250 mg Venlafaxine HCl (Effexor) 150 mg PO DAILY [facility] Last Admin: 12/28/18 09:30 Dose: 150 mg - Labs Labs: 01/01/19 06:23 01/01/19 06:24 PT 22.6 SECONDS (9.7-12.2) H D 12/24/18 14:57 INR 2.1 D 12/24/18 14:57 APTT 33 SECONDS (21-34) 12/24/18 14:57 - Constitutional Appears: Confused, Cachectic, Chronically Ill - Head Exam Head Exam: ATRAUMATIC, NORMAL INSPECTION, NORMOCEPHALIC - Eye Exam Eye Exam: EOMI, Normal appearance, PERRL Pupil Exam: NORMAL ACCOMODATION, PERRL - ENT Exam ENT Exam: Mucous Membranes Moist, Normal Exam - Neck Exam Neck Exam: Full ROM, Normal Inspection. absent: Lymphadenopathy - Respiratory Exam Respiratory Exam: Clear to Ausculation Bilateral, NORMAL BREATHING PATTERN - Cardiovascular Exam Cardiovascular Exam: REGULAR RHYTHM, +S1, +S2. absent: Murmur - GI/Abdominal Exam GI & Abdominal Exam: Distended, Soft, Tenderness, Diminished Bowel Sounds - Rectal Exam Rectal Exam: NORMAL INSPECTION - Exam Exam: Circumcision, NORMAL INSPECTION External exam: NORMAL EXTERNAL EXAM Speculum exam: NORMAL SPECULUM EXAM Bimanual exam: NORMAL BIMANUAL EXAM - Extremities Exam Extremities Exam: Full ROM, Normal Capillary Refill, Normal Inspection. absent: Joint Swelling, Pedal Edema - Back Exam Back Exam: NORMAL INSPECTION - Neurological Exam Neurological Exam: Abnormal Gait, Alert, Awake, CN II-XII Intact, Oriented x3 Neuro motor strength exam: Left Upper Extremity: 3, Right Upper Extremity: 3, Left Lower Extremity: 3, Right Lower Extremity: 3 - Psychiatric Exam Psychiatric exam: Depressed, Normal Affect - Skin Skin Exam: Dry, Intact, Normal Color, Warm Assessment and Plan (1) Abdominal pain Status: Acute (2) Colitis Status: Acute (3) Sepsis Status: Acute (4) Depressed Status: Acute (5) Renal insufficiency Status: Acute (6) Change in mental status Status: Chronic (7) Dementia Status: Chronic (8) LOUIE (acute kidney injury) Status: Resolved (9) Atrial fibrillation with RVR Status: Resolved (10) Congestive cardiac failure Status: Resolved (11) Renal insufficiency Status: Resolved (12) CVA (cerebral vascular accident) Status: Ruled-out (13) Seizures Status: Ruled-out - Assessment and Plan (Free Text) Assessment: seen and examined on rounds labs/ cultures reviewed IV antibiotics adjusted
[2019-01-01] MEDS: Metoprolol Succinate 25 mg XL Tab PO SCH (18:31)
--- NOTE | 2019-01-01 21:42 | PN ---
DATE: 01/01/2019 SUBJECTIVE: No reported hypotension, chest pain or dizziness. PHYSICAL EXAMINATION: VITAL SIGNS: Blood pressure 164/70, heart rate 85, temperature 98.6, respirations 18. HEENT: Normocephalic. CHEST: Clear. HEART: S1 and S2 regular. EXTREMITIES: Trace leg edema. LABORATORY DATA: Today's hemoglobin and hematocrit 10.7 and 34.3. White count 7.6, platelet count 410,000. Today's SMA-7 is within normal limits except for glucose of 121, calcium below normal at 7.9. ASSESSMENT: 1. Clostridium difficile colitis. 2. History of paroxysmal atrial fibrillation. 3. Depression. 4. Diabetes mellitus. RECOMMENDATIONS: Continue aspirin 81 mg once a day, Effexor 150 mg once a day, Eliquis 2.5 mg twice a day, Toprol-XL 25 mg once a day, vancomycin 250 mg orally four times a day. The plan is to transfer the patient to psych clinic at [facility]. Sukhdev Dave MD
[2019-01-02 06:12] LABS: BASO # 0.1 K/uL (0.0-0.2); HEMOGLOBIN 10.4 g/dL (11.0-16.0); LYMPH # 2.8 K/uL (1.0-4.3); LYMPH % 34.3 % (20.0-40.0); MEAN CELL VOLUME 81.3 fL (81.0-99.0); MEAN CORPUSCULAR HEMOGLOBIN 25.4 pg (27.0-31.0); MEAN CORPUSCULAR HGB CONC 31.3 g/dL (33.0-37.0); MEAN PLATELET VOLUME 8.7 fL (7.2-11.7); MONO # 0.6 K/uL (0.0-0.8); MONO % 6.9 % (0.0-10.0); NEUT # 4.7 K/uL (1.8-7.0); NEUT % 57.8 % (50.0-75.0); RBC 4.09 Mil/uL (3.80-5.20); RED CELL DISTRIBUTION WIDTH 18.5 % (11.5-14.5); WHITE BLOOD COUNT 8.2 K/uL (4.8-10.8)
[2019-01-02 06:35] LABS: ALB/GLOB RATIO 0.8 (1.0-2.1); ALBUMIN 2.4 g/dL (3.5-5.0); ALT/SGPT 16 U/L (9-52); AST/SGOT 29 U/L (14-36); BLOOD UREA NITROGEN 17 mg/dL (7-17); CALCIUM 7.8 mg/dl (8.6-10.4); GFR NON-AFRICAN AMERICAN > 60
[2019-01-02] MEDS: (Novolin R) Insulin Human Regular 100 units/ml vial SC SCH ×4 (07:45→21:55)
[2019-01-02] MEDS: Vancomycin Hydrochloride 250 mg Capsule (Oral) PO SCH ×5 (09:06→21:32)
--- NOTE | 2019-01-02 14:05 | CP.PCM.PN ---
Subjective - Date & Time of Evaluation Date of Evaluation: 01/02/19 Time of Evaluation: 14:03 - Subjective Subjective: Nephrology Consultation Note: Assessment: stable Acute Kidney Injury (N17.9) likely due to ATN due to sepsis, IV contrast : resolved C.Diff colitis, hagma with respi compensation, hyponatremia hypocalcemia Diabetic chronic Kidney Disease (E11.22) Hypertensive Chronic Kidney Disease (I12.9) Chronic Kidney Disease (N18.3) Stage 3 with ? mg proteinuria (R80.9) Anemia (D64.9) hx of dig toxicity, A fib, CVA, hypothyroidism left adrenal nodule Plan No acute need for renal replacement therapy at this time. renal function improving Hypertension control with meds as ordered. Maintain hemodynamics stable. Avoid hypotension. Patient not on ACEI/ARB due to recent LOUIE, can add if needed for elevated BP. increased toprol XL to 25 mg/d Monitor Input/Output, daily weights and renal function with basic metabolic panel supplement lytes as needed left adrenal nodule work up as outpt Dose meds/antibiotics for GFR >60. Glycemic control Further work up/management as per primary team Thanks for allowing me to participate in care of your patient. Will follow patient with you. Please call if any Qs. had d/w team Dr Raghu Solis Office: [phone] Chief Complaint; pain abdomen Reason for consult: Acute Kidney Injury HPI: Pt is a 73 F with hx of diabetes Mellitus ( years), hypertension (years) CKD 3 with baseline cr 1.2-1.4, hx of dig toxicity, A fib, CVA, hypothyroidism presented with complaints of pain abdomen and being managed for sepsis, colitis, transferred to ICU Denies OTC/herbal meds or NSAIDs Noted recent iodinated contrast exposure. Noted obvious episodes of low BP (99/61). pt not aware about kidney disease in past ROS: pt lying comfortably but not interactive at all. not answering any Qs Physical Examination: General Appearance: comfortable, in no acute respiratory distress, co-operative . well appearing Vitals reviewed and noted as below Head; Atraumatic, normocephalic ENT: no ulcers no thrush. Tongue is midline. Oropharynx: no rash or ulcers. EYES: Pupils are equal, round and reactive to light accommodation. Eye muscles and extraocular movement intact. Sclera is anicteric. Neck; supple no lymphadenopathy, no thyromegaly or bruit Lungs: Normal respiratory rate/effort. Breath sounds bilateral equal and clear Heart: normal rate. s1s2 normal. No rub or gallop. Extremities: no edema. No varicose veins Neurological: Patient is pt lying comfortably but not interactive at all. not answering any Qs Skin: Warm and dry. Normal turgor. No rash. Palpitation: Normal elasticity for age Abdomen: Abdomen is soft. Bowel sounds +. There is distension with abdominal tenderness, no guarding/rigidity no organomegaly Psych: deferred MSK: no joint tenderness or swelling. Digits and nails normal, no deformity : kidney or bladder not palpable Labs/imaging reviewed. Past medical history, past surgical history, family history, social history, allergy reviewed and noted as below Family hx: no hx of CKD. Rest non-contributory Objective - Vital Signs/Intake and Output Vital Signs (last 24 hours): Temp Pulse Resp BP Pulse Ox 98.2 F 77 18 107/65 96 01/02/19 08:00 01/02/19 08:00 01/02/19 08:00 01/02/19 08:00 01/02/19 08:00 Intake and Output: 01/02/19 01/02/19 06:59 18:59 Intake Total 60 Output Total 400 Balance -340 - Medications Medications: Current Medications Apixaban (Eliquis) 2.5 mg PO Q12 [facility] Last Admin: 01/02/19 10:50 Dose: Not Given Aspirin (Ecotrin) 81 mg PO DAILY [facility] Last Admin: 01/02/19 10:50 Dose: Not Given Famotidine (Pepcid) 20 mg PO DAILY [facility] Last Admin: 01/02/19 10:50 Dose: Not Given Insulin Human Regular (Novolin R) 0 unit SC ACHS [facility]; Protocol Last Admin: 01/02/19 12:07 Dose: Not Given Metoprolol Succinate (Toprol Xl) 25 mg PO QPM [facility] Last Admin: 01/01/19 18:31 Dose: 25 mg Metronidazole (Flagyl) 500 mg PO Q8 [facility] Last Admin: 01/02/19 06:11 Dose: 500 mg Mirtazapine (Remeron) 30 mg PO HS [facility] Last Admin: 01/01/19 21:23 Dose: 30 mg Mirtazapine (Remeron) 15 mg PO HS [facility] Vancomycin HCl (Vancocin 250mg Capsule) 250 mg PO QID [facility] Last Admin: 01/02/19 10:50 Dose: Not Given Venlafaxine HCl (Effexor) 150 mg PO DAILY [facility] Last Admin: 12/28/18 09:30 Dose: 150 mg - Labs Labs: 01/02/19 06:07 01/02/19 06:07 PT 22.6 SECONDS (9.7-12.2) H D 12/24/18 14:57 INR 2.1 D 12/24/18 14:57 APTT 33 SECONDS (21-34) 12/24/18 14:57
--- NOTE | 2019-01-02 14:47 | CP.PCM.PN ---
Subjective - Date & Time of Evaluation Date of Evaluation: 01/02/19 Time of Evaluation: 14:45 - Subjective Subjective: yellow mucoid BMs No abdominal pain on oral Vanco for CDiff Objective - Vital Signs/Intake and Output Vital Signs (last 24 hours): Temp Pulse Resp BP Pulse Ox 98.2 F 77 18 107/65 96 01/02/19 08:00 01/02/19 08:00 01/02/19 08:00 01/02/19 08:00 01/02/19 08:00 Intake and Output: 01/02/19 01/02/19 06:59 18:59 Intake Total 60 Output Total 400 Balance -340 - Medications Medications: Current Medications Apixaban (Eliquis) 2.5 mg PO Q12 [facility] Last Admin: 01/02/19 10:50 Dose: Not Given Aspirin (Ecotrin) 81 mg PO DAILY [facility] Last Admin: 01/02/19 10:50 Dose: Not Given Famotidine (Pepcid) 20 mg PO DAILY [facility] Last Admin: 01/02/19 10:50 Dose: Not Given Insulin Human Regular (Novolin R) 0 unit SC [facility]; Protocol Last Admin: 01/02/19 12:07 Dose: Not Given Metoprolol Succinate (Toprol Xl) 25 mg PO QPM [facility] Last Admin: 01/01/19 18:31 Dose: 25 mg Metronidazole (Flagyl) 500 mg PO Q8 [facility] Last Admin: 01/02/19 14:41 Dose: Not Given Mirtazapine (Remeron) 30 mg PO HS [facility] Last Admin: 01/01/19 21:23 Dose: 30 mg Mirtazapine (Remeron) 15 mg PO HS [facility] Vancomycin HCl (Vancocin 250mg Capsule) 250 mg PO QID [facility] Last Admin: 01/02/19 14:42 Dose: Not Given Venlafaxine HCl (Effexor) 150 mg PO DAILY [facility] Last Admin: 12/28/18 09:30 Dose: 150 mg - Labs Labs: 01/02/19 06:07 01/02/19 06:07 PT 22.6 SECONDS (9.7-12.2) H D 12/24/18 14:57 INR 2.1 D 12/24/18 14:57 APTT 33 SECONDS (21-34) 12/24/18 14:57 - Constitutional Appears: Chronically Ill - Head Exam Head Exam: NORMOCEPHALIC - Respiratory Exam Respiratory Exam: Clear to Ausculation Bilateral - Cardiovascular Exam Cardiovascular Exam: Irregular Rhythm - GI/Abdominal Exam GI & Abdominal Exam: Soft. absent: Distended, Tenderness, Hypoactive Bowel Sounds Assessment and Plan (1) Clostridium difficile colitis Assessment & Plan: Gradually improving Continue oral Vancomycin Status: Acute
--- NOTE | 2019-01-02 16:22 | PN ---
DATE: 01/02/2019 SUBJECTIVE: The patient is seen. The patient seems to be more depressed, nonverbal, refusing to take her meds and also not eating well. The patient seems to be decompensating psychiatric martin. The patient's meds reviewed. The patient's Effexor has been held due to her elevated blood pressure, but we will put her back today and we will also increase the dose of the Remeron to 45 mg which was the maintenance dose outside. We will keep her off the Ambien for now. PHYSICAL EXAMINATION: GENERAL: The patient is alert but mostly nonverbal. Seems more depressed. Seen in her room. Has poor appetite but not in acute respiratory distress. VITAL SIGNS: Temperature 98.2, pulse 77, blood pressure 107/65, respirations 18, oxygen saturation 96%. SKIN: No diaphoresis. HEENT: No headache. No dizziness. NECK: Supple. RESPIRATORY: No dyspnea. CARDIOVASCULAR: No chest pain. GASTROINTESTINAL: The patient has poor p.o. intake, refusing her meds. EXTREMITIES: Moving extremities. MUSCULOSKELETAL: Feels weak. NEUROLOGIC: Alert but marginally cooperative. Oriented to place and person. GENITOURINARY: No dysuria. MENTAL STATUS EXAMINATION: An elderly female who looks stated age. Oriented x2. Mood is dysphoric. Affect is restricted. Speech is slow. Poverty of speech. Thought process confused. Thought content, refusing to take her meds and not eating. No psychosis. No suicidal or homicidal ideation. Attention and memory seems to be limited. Insight and judgement limited. Impulse control is fair at this time. IMPRESSION: History of recurrent depression, anxiety, colitis. PLAN AND RECOMMENDATION: The patient is seen, medications reviewed. We will put her back on the Effexor and raise the dose of Remeron to 45 mg at bedtime. Continue treatment plan as outlined. If the patient's psychiatric symptoms continue to persist, we will refer her to [facility] for inpatient stabilization for her depression once medically cleared. The patient has been admitted there in the past for depression, and the patient seems to be presenting the same symptoms that ended her up at [facility]. Alexandre Kumari MD
[2019-01-02] MEDS: Metoprolol Succinate 25 mg XL Tab PO SCH (17:32)
--- NOTE | 2019-01-02 17:32 | PN ---
DATE: 01/02/2019 SUBJECTIVE: The patient is depressed and refusing her medications. She barely answers my questions. Turning off her face away from me. PHYSICAL EXAMINATION: VITAL SIGNS: Blood pressure 107/65, heart rate 77, temperature 98.2, respirations 18. HEENT: Head normocephalic. CHEST: Clear. HEART: S1 and S2 regular. EXTREMITIES: No edema. LABORATORY DATA: Hemoglobin and hematocrit 10.4 and 33.2. White count 8.2, platelet count 432,000. Today's SMA-7: Sodium 133, potassium 4.3, chloride 107, CO2 of 21, glucose 133, BUN 17, creatinine 0.9. ASSESSMENT AND PLAN: 1. History of paroxysmal atrial fibrillation. 2. Depression. 3. Clostridium difficile colitis. 4. Mild anemia. 5. Improved sinus tachycardia. RECOMMENDATIONS: Continue current medical management if the patient allows for oral anticoagulant medications. The process of transferring the patient to psych unit at [facility] is still going on. Sukhdev Dave MD
[2019-01-02] MEDS: Dextrose 5%/0.45% NS 1,000 ML IV SCH (20:00)
[2019-01-02] MEDS: metroNIDAZOLE IV 500 mg/100 ml 500 MG/100 ML BAG IVPB SCH (21:31)
[2019-01-03] MEDS: metroNIDAZOLE IV 500 mg/100 ml 500 MG/100 ML BAG IVPB SCH ×3 (06:13→21:30)
[2019-01-03 06:16] LABS: BASO % 0.3 % (0.0-2.0); HEMOGLOBIN 9.8 g/dL (11.0-16.0); MEAN CELL VOLUME 82.1 fL (81.0-99.0); MEAN CORPUSCULAR HEMOGLOBIN 25.9 pg (27.0-31.0); MEAN CORPUSCULAR HGB CONC 31.6 g/dL (33.0-37.0); MEAN PLATELET VOLUME 8.6 fL (7.2-11.7); MONO # 0.5 K/uL (0.0-0.8); MONO % 7.6 % (0.0-10.0); NEUT # 3.8 K/uL (1.8-7.0); NEUT % 60.1 % (50.0-75.0); NRBC % 0.1 % (0.0-2.0); RBC 3.78 Mil/uL (3.80-5.20); RED CELL DISTRIBUTION WIDTH 18.9 % (11.5-14.5); WHITE BLOOD COUNT 6.3 K/uL (4.8-10.8)
[2019-01-03 06:35] LABS: ALB/GLOB RATIO 0.9 (1.0-2.1); ALBUMIN 2.2 g/dL (3.5-5.0); ALT/SGPT 22 U/L (9-52); AST/SGOT 34 U/L (14-36); BLOOD UREA NITROGEN 15 mg/dL (7-17); CALCIUM 7.6 mg/dl (8.6-10.4); GFR NON-AFRICAN AMERICAN > 60
[2019-01-03] MEDS: (Novolin R) Insulin Human Regular 100 units/ml vial SC SCH ×4 (07:59→22:00)
[2019-01-03] MEDS: Vancomycin Hydrochloride 250 mg Capsule (Oral) PO SCH ×4 (09:22→21:38)
--- NOTE | 2019-01-03 10:52 | CP.PCM.PN ---
Subjective - Date & Time of Evaluation Date of Evaluation: 01/03/19 Time of Evaluation: 10:51 - Subjective Subjective: Nephrology Consultation Note: Assessment: stable Acute Kidney Injury (N17.9) likely due to ATN due to sepsis, IV contrast : resolved C.Diff colitis, hagma with respi compensation, hyponatremia hypocalcemia nagma Diabetic chronic Kidney Disease (E11.22) Hypertensive Chronic Kidney Disease (I12.9) Chronic Kidney Disease (N18.3) Stage 3 with ? mg proteinuria (R80.9) Anemia (D64.9) hx of dig toxicity, A fib, CVA, hypothyroidism left adrenal nodule Plan No acute need for renal replacement therapy at this time. renal function improv ing Hypertension control with meds as ordered. Maintain hemodynamics stable. Avoid hypotension. Patient not on ACEI/ARB due to recent LOUIE, can add if needed for elevated BP. increased toprol XL to 25 mg/d Monitor Input/Output, daily weights and renal function with basic metabolic panel supplement lytes as needed add sodium bicarb 650 bid lasix prn can be given left adrenal nodule work up as outpt Dose meds/antibiotics for GFR >60. Glycemic control Further work up/management as per primary team Thanks for allowing me to participate in care of your patient. Will follow patient with you. Please call if any Qs. had d/w team Dr Raghu Solis Office: [phone] Chief Complaint; pain abdomen Reason for consult: Acute Kidney Injury HPI: Pt is a 73 F with hx of diabetes Mellitus ( years), hypertension (years) CKD 3 with baseline cr 1.2-1.4, hx of dig toxicity, A fib, CVA, hypothyroidism presented with complaints of pain abdomen and being managed for sepsis, colitis, transferred to ICU Denies OTC/herbal meds or NSAIDs Noted recent iodinated contrast exposure. Noted obvious episodes of low BP (99/61). pt not aware about kidney disease in past ROS: pt lying comfortably but not interactive at all. not answering any Qs Physical Examination: General Appearance: comfortable, in no acute respiratory distress, co-operative . well appearing Vitals reviewed and noted as below Head; Atraumatic, normocephalic ENT: no ulcers no thrush. Tongue is midline. Oropharynx: no rash or ulcers. EYES: Pupils are equal, round and reactive to light accommodation. Eye muscles and extraocular movement intact. Sclera is anicteric. Neck; supple no lymphadenopathy, no thyromegaly or bruit Lungs: Normal respiratory rate/effort. Breath sounds bilateral basal crackles Heart: normal rate. s1s2 normal. No rub or gallop. Extremities: no edema. No varicose veins Neurological: Patient is pt lying comfortably but not interactive at all. not answering any Qs Skin: Warm and dry. Normal turgor. No rash. Palpitation: Normal elasticity for age Abdomen: Abdomen is soft. Bowel sounds +. There is distension with abdominal tenderness, no guarding/rigidity no organomegaly Psych: deferred MSK: no joint tenderness or swelling. Digits and nails normal, no deformity : kidney or bladder not palpable Labs/imaging reviewed. Past medical history, past surgical history, family history, social history, allergy reviewed and noted as below Family hx: no hx of CKD. Rest non-contributory Objective - Vital Signs/Intake and Output Vital Signs (last 24 hours): Temp Pulse Resp BP Pulse Ox 98.2 F 104 H 20 120/75 98 01/03/19 07:56 01/03/19 07:56 01/03/19 07:56 01/03/19 07:56 01/03/19 07:56 Intake and Output: 01/03/19 01/03/19 06:59 18:59 Intake Total 1370 Output Total 400 Balance 970 - Medications Medications: Current Medications Apixaban (Eliquis) 2.5 mg PO Q12 [facility] Last Admin: 01/03/19 09:22 Dose: 2.5 mg Aspirin (Ecotrin) 81 mg PO DAILY [facility] Last Admin: 01/03/19 09:21 Dose: 81 mg Famotidine (Pepcid) 20 mg PO DAILY [facility] Last Admin: 01/03/19 09:22 Dose: 20 mg Dextrose/Sodium Chloride (Dextrose 5%/0.45% Ns 1000 Ml) 1,000 mls @ 60 mls/hr IV .[id number] [facility] Last Admin: 01/02/19 20:00 Dose: 60 mls/hr Metronidazole (Flagyl) 500 mg in 100 mls @ 100 mls/hr IVPB Q8H [facility]; Protocol Last Admin: 01/03/19 06:13 Dose: 100 mls/hr Insulin Human Regular (Novolin R) 0 unit SC ACHS [facility]; Protocol Last Admin: 01/03/19 07:59 Dose: 1 units Metoprolol Succinate (Toprol Xl) 25 mg PO QPM [facility] Last Admin: 01/02/19 17:32 Dose: Not Given Mirtazapine (Remeron) 30 mg PO HS [facility] Last Admin: 01/02/19 21:32 Dose: 30 mg Mirtazapine (Remeron) 15 mg PO HS [facility] Last Admin: 01/02/19 21:32 Dose: 15 mg Vancomycin HCl (Vancocin 250mg Capsule) 250 mg PO QID [facility] Last Admin: 01/03/19 09:22 Dose: 250 mg Venlafaxine HCl (Effexor) 150 mg PO DAILY [facility] Last Admin: 01/03/19 09:21 Dose: 150 mg - Labs Labs: 01/03/19 06:00 01/03/19 06:00 PT 22.6 SECONDS (9.7-12.2) H D 12/24/18 14:57 INR 2.1 D 12/24/18 14:57 APTT 33 SECONDS (21-34) 12/24/18 14:57
--- NOTE | 2019-01-03 11:37 | CP.PCM.PN ---
Subjective - Date & Time of Evaluation Date of Evaluation: 01/03/19 Time of Evaluation: 10:00 - Subjective Subjective: weak bedridden in ICU GI onboard NAD Objective - Vital Signs/Intake and Output Vital Signs (last 24 hours): Temp Pulse Resp BP Pulse Ox 98.2 F 104 H 20 120/75 98 01/03/19 07:56 01/03/19 07:56 01/03/19 07:56 01/03/19 07:56 01/03/19 07:56 Intake and Output: 01/03/19 01/03/19 06:59 18:59 Intake Total 1370 Output Total 400 Balance 970 - Medications Medications: Current Medications Apixaban (Eliquis) 2.5 mg PO Q12 [facility] Last Admin: 01/03/19 09:22 Dose: 2.5 mg Aspirin (Ecotrin) 81 mg PO DAILY [facility] Last Admin: 01/03/19 09:21 Dose: 81 mg Famotidine (Pepcid) 20 mg PO DAILY [facility] Last Admin: 01/03/19 09:22 Dose: 20 mg Dextrose/Sodium Chloride (Dextrose 5%/0.45% Ns 1000 Ml) 1,000 mls @ 60 mls/hr IV .[id number] [facility] Last Admin: 01/02/19 20:00 Dose: 60 mls/hr Metronidazole (Flagyl) 500 mg in 100 mls @ 100 mls/hr IVPB Q8H [facility]; Protocol Last Admin: 01/03/19 06:13 Dose: 100 mls/hr Insulin Human Regular (Novolin R) 0 unit SC ACHS [facility]; Protocol Last Admin: 01/03/19 07:59 Dose: 1 units Metoprolol Succinate (Toprol Xl) 25 mg PO QPM [facility] Last Admin: 01/02/19 17:32 Dose: Not Given Mirtazapine (Remeron) 30 mg PO HS [facility] Last Admin: 01/02/19 21:32 Dose: 30 mg Mirtazapine (Remeron) 15 mg PO HS [facility] Last Admin: 01/02/19 21:32 Dose: 15 mg Sodium Bicarbonate (Sodium Bicarbonate Tab) 650 mg PO BID [facility] Stop: 01/10/19 11:01 Vancomycin HCl (Vancocin 250mg Capsule) 250 mg PO QID [facility] Last Admin: 01/03/19 09:22 Dose: 250 mg Venlafaxine HCl (Effexor) 150 mg PO DAILY [facility] Last Admin: 01/03/19 09:21 Dose: 150 mg - Labs Labs: 01/03/19 06:00 01/03/19 06:00 PT 22.6 SECONDS (9.7-12.2) H D 12/24/18 14:57 INR 2.1 D 12/24/18 14:57 APTT 33 SECONDS (21-34) 12/24/18 14:57 - Constitutional Appears: Cachectic, Chronically Ill - Head Exam Head Exam: NORMOCEPHALIC - Eye Exam Eye Exam: absent: Scleral icterus - ENT Exam ENT Exam: Mucous Membranes Dry - Neck Exam Neck Exam: absent: Lymphadenopathy - Respiratory Exam Respiratory Exam: Decreased Breath Sounds - Cardiovascular Exam Cardiovascular Exam: REGULAR RHYTHM - GI/Abdominal Exam GI & Abdominal Exam: Distended - Rectal Exam Rectal Exam: Deferred - Exam Exam: NORMAL INSPECTION - Extremities Exam Extremities Exam: absent: Pedal Edema - Back Exam Back Exam: absent: CVA tenderness (L), CVA tenderness (R) - Neurological Exam Neurological Exam: Altered Assessment and Plan (1) Abdominal pain Status: Acute (2) Colitis Status: Acute (3) Sepsis Status: Acute (4) Depressed Status: Acute (5) Renal insufficiency Status: Acute (6) Change in mental status Status: Chronic (7) Dementia Status: Chronic (8) LOUIE (acute kidney injury) Status: Resolved (9) Atrial fibrillation with RVR Status: Resolved (10) Congestive cardiac failure Status: Resolved (11) Renal insufficiency Status: Resolved (12) CVA (cerebral vascular accident) Status: Ruled-out (13) Seizures Status: Ruled-out - Assessment and Plan (Free Text) Assessment: CONT RX PER DR DE LA CRUZ
[2019-01-03] MEDS: Dextrose 5%/0.45% NS 1,000 ML IV SCH ×2 (14:24→21:28)
--- NOTE | 2019-01-03 14:50 | CP.PCM.PN ---
Subjective - Date & Time of Evaluation Date of Evaluation: 01/03/19 Time of Evaluation: 14:48 - Subjective Subjective: f/u colitis Feels better Denies Rb, melena, Cp, SOB, GARCIA, cough fever, chills Objective - Vital Signs/Intake and Output Vital Signs (last 24 hours): Temp Pulse Resp BP Pulse Ox 98.7 F 100 H 21 142/89 98 01/03/19 12:00 01/03/19 12:00 01/03/19 12:00 01/03/19 12:00 01/03/19 12:00 Intake and Output: 01/03/19 01/03/19 06:59 18:59 Intake Total 1370 Output Total 400 Balance 970 - Medications Medications: Current Medications Apixaban (Eliquis) 2.5 mg PO Q12 [facility] Last Admin: 01/03/19 09:22 Dose: 2.5 mg Aspirin (Ecotrin) 81 mg PO DAILY [facility] Last Admin: 01/03/19 09:21 Dose: 81 mg Famotidine (Pepcid) 20 mg PO DAILY [facility] Last Admin: 01/03/19 09:22 Dose: 20 mg Dextrose/Sodium Chloride (Dextrose 5%/0.45% Ns 1000 Ml) 1,000 mls @ 60 mls/hr IV .[id number] [facility] Last Admin: 01/03/19 14:24 Dose: Not Given Metronidazole (Flagyl) 500 mg in 100 mls @ 100 mls/hr IVPB Q8H [facility]; Protocol Last Admin: 01/03/19 06:13 Dose: 100 mls/hr Insulin Human Regular (Novolin R) 0 unit SC ACHS [facility]; Protocol Last Admin: 01/03/19 12:51 Dose: 1 units Metoprolol Succinate (Toprol Xl) 25 mg PO QPM [facility] Last Admin: 01/02/19 17:32 Dose: Not Given Mirtazapine (Remeron) 30 mg PO HS [facility] Last Admin: 01/02/19 21:32 Dose: 30 mg Mirtazapine (Remeron) 15 mg PO HS [facility] Last Admin: 01/02/19 21:32 Dose: 15 mg Sodium Bicarbonate (Sodium Bicarbonate Tab) 650 mg PO BID [facility] Stop: 01/10/19 11:01 Last Admin: 01/03/19 12:51 Dose: 650 mg Vancomycin HCl (Vancocin 250mg Capsule) 250 mg PO QID [facility] Last Admin: 01/03/19 13:00 Dose: 250 mg Venlafaxine HCl (Effexor) 150 mg PO DAILY [facility] Last Admin: 01/03/19 09:21 Dose: 150 mg - Labs Labs: 01/03/19 06:00 01/03/19 06:00 PT 22.6 SECONDS (9.7-12.2) H D 12/24/18 14:57 INR 2.1 D 12/24/18 14:57 APTT 33 SECONDS (21-34) 12/24/18 14:57 - Constitutional Appears: Non-toxic - Respiratory Exam Respiratory Exam: Clear to Ausculation Bilateral - Cardiovascular Exam Cardiovascular Exam: RRR - GI/Abdominal Exam GI & Abdominal Exam: Soft, Normal Bowel Sounds. absent: Guarding, Tenderness - Neurological Exam Neurological Exam: Alert, Awake Assessment and Plan (1) Depression Status: Acute (2) Anemia Status: Acute (3) Abdominal pain Assessment & Plan: improving Status: Acute (4) Colitis Assessment & Plan: c diff. Improving Status: Acute (5) Sepsis Status: Acute (6) Renal insufficiency Status: Acute
[2019-01-03] MEDS: Metoprolol Succinate 25 mg XL Tab PO SCH (17:56)
--- NOTE | 2019-01-03 17:57 | PN ---
DATE: 01/03/2019 SUBJECTIVE: The patient is depressed, barely communicating, but awake. PHYSICAL EXAMINATION: VITAL SIGNS: Blood pressure 120/75, heart rate 104, temperature 98.2, respirations 20. HEENT: Pale conjunctivae. CHEST: Diminished breath sounds over at the bases. HEART: S1 and S2, regular. EXTREMITIES: No edema. LABORATORY DATA: Hemoglobin and hematocrit of 9.8 and 31. White count and platelet count are within normal limits. Her SMA-7 is within normal limits except for glucose of 144 and carbon dioxide of 20. Calcium is 7.6. ASSESSMENT: 1. Clostridium difficile colitis. 2. Dehydration and sinus tachycardia. 3. Paroxysmal atrial fibrillation. 4. Severe depression. RECOMMENDATIONS: Continue aspirin 81 mg once a day, Eliquis 2.5 mg twice a day, Flagyl 500 mg intravenously q. 8 hours, Toprol-XL 25 mg once a day, oral vancomycin 250 mg q.i.d., increase IV fluids to normal saline at 100 mL an hour, and connect the patient to color television console monitor. Sukhdev Dave MD
[2019-01-04] MEDS: Dextrose 5%/0.45% NS 1,000 ML IV SCH ×3 (04:50→21:30)
[2019-01-04] MEDS: metroNIDAZOLE IV 500 mg/100 ml 500 MG/100 ML BAG IVPB SCH ×3 (06:00→22:00)
[2019-01-04 06:38] LABS: BASO % 0.4 % (0.0-2.0); HEMOGLOBIN 9.6 g/dL (11.0-16.0); LYMPH # 2.3 K/uL (1.0-4.3); LYMPH % 33.5 % (20.0-40.0); MEAN CELL VOLUME 82.3 fL (81.0-99.0); MEAN CORPUSCULAR HEMOGLOBIN 25.7 pg (27.0-31.0); MEAN CORPUSCULAR HGB CONC 31.3 g/dL (33.0-37.0); MEAN PLATELET VOLUME 8.5 fL (7.2-11.7); MONO # 0.5 K/uL (0.0-0.8); NEUT % 59.1 % (50.0-75.0); NRBC % 0.1 % (0.0-2.0); RBC 3.73 Mil/uL (3.80-5.20); RED CELL DISTRIBUTION WIDTH 19.2 % (11.5-14.5); WHITE BLOOD COUNT 6.7 K/uL (4.8-10.8)
[2019-01-04 06:43] LABS: ALB/GLOB RATIO 0.8 (1.0-2.1); ALBUMIN 2.3 g/dL (3.5-5.0); ALT/SGPT 20 U/L (9-52); AST/SGOT 28 U/L (14-36); BLOOD UREA NITROGEN 12 mg/dL (7-17); CALCIUM 7.7 mg/dl (8.6-10.4); GFR NON-AFRICAN AMERICAN 54
--- NOTE | 2019-01-04 07:04 | PN ---
DATE: 01/01/2019 SUBJECTIVE: Patient supportive care. Continue treatment. Jed Rivera MD [facility] # [id number]
--- NOTE | 2019-01-04 07:06 | PN ---
DATE: 12/31/2018 Patient on supportive care. Continue treatment psychiatric consult. Jed Rivera MD
[2019-01-04] MEDS: (Novolin R) Insulin Human Regular 100 units/ml vial SC SCH ×4 (07:59→22:00)
[2019-01-04] MEDS: Vancomycin Hydrochloride 250 mg Capsule (Oral) PO SCH ×3 (09:08→17:27)
--- NOTE | 2019-01-04 09:52 | CP.PCM.PN ---
Subjective - Date & Time of Evaluation Date of Evaluation: 01/02/19 Time of Evaluation: 16:00 - Subjective Subjective: pt still in icu no apetite still has diarehea less abd pain afebrile Objective - Vital Signs/Intake and Output Vital Signs (last 24 hours): Temp Pulse Resp BP Pulse Ox 98.2 F 84 24 157/67 H 98 01/04/19 08:00 01/04/19 08:00 01/04/19 08:00 01/04/19 08:00 01/04/19 04:00 Intake and Output: 01/04/19 01/04/19 06:59 18:59 Intake Total 1120 120 Output Total 1 Balance 1120 119 - Medications Medications: Current Medications Apixaban (Eliquis) 2.5 mg PO Q12 [facility] Last Admin: 01/04/19 09:07 Dose: 2.5 mg Aspirin (Ecotrin) 81 mg PO DAILY [facility] Last Admin: 01/04/19 09:11 Dose: 81 mg Famotidine (Pepcid) 20 mg PO DAILY [facility] Last Admin: 01/04/19 09:07 Dose: 20 mg Dextrose/Sodium Chloride (Dextrose 5%/0.45% Ns 1000 Ml) 1,000 mls @ 60 mls/hr IV .[id number] [facility] Last Admin: 01/04/19 04:50 Dose: Not Given Metronidazole (Flagyl) 500 mg in 100 mls @ 100 mls/hr IVPB Q8H [facility]; Protocol Last Admin: 01/04/19 06:00 Dose: 100 mls/hr Insulin Human Regular (Novolin R) 0 unit SC ACHS [facility]; Protocol Last Admin: 01/04/19 07:59 Dose: 1 units Metoprolol Succinate (Toprol Xl) 25 mg PO QPM [facility] Last Admin: 01/03/19 17:56 Dose: 25 mg Mirtazapine (Remeron) 30 mg PO HS [facility] Last Admin: 01/03/19 22:37 Dose: 30 mg Mirtazapine (Remeron) 15 mg PO HS [facility] Last Admin: 01/03/19 21:39 Dose: 15 mg Sodium Bicarbonate (Sodium Bicarbonate Tab) 650 mg PO BID [facility] Stop: 01/10/19 11:01 Last Admin: 01/04/19 09:07 Dose: 650 mg Vancomycin HCl (Vancocin 250mg Capsule) 250 mg PO QID [facility] Last Admin: 01/04/19 09:08 Dose: 250 mg Venlafaxine HCl (Effexor) 150 mg PO DAILY [facility] Last Admin: 01/04/19 09:08 Dose: 150 mg - Labs Labs: 01/04/19 06:27 01/04/19 06:25 PT 22.6 SECONDS (9.7-12.2) H D 12/24/18 14:57 INR 2.1 D 12/24/18 14:57 APTT 33 SECONDS (21-34) 12/24/18 14:57 - Constitutional Appears: In Acute Distress - Head Exam Head Exam: ATRAUMATIC - Eye Exam Eye Exam: Normal appearance Pupil Exam: NORMAL ACCOMODATION - ENT Exam ENT Exam: Mucous Membranes Dry - Neck Exam Neck Exam: Normal Inspection - Respiratory Exam Respiratory Exam: Clear to Ausculation Bilateral - Cardiovascular Exam Cardiovascular Exam: REGULAR RHYTHM - GI/Abdominal Exam GI & Abdominal Exam: Tenderness - Back Exam Back Exam: NORMAL INSPECTION - Neurological Exam Neurological Exam: Awake - Psychiatric Exam Psychiatric exam: Depressed - Skin Skin Exam: Pallor Assessment and Plan - Assessment and Plan (Free Text) Assessment: acute c difficil infection abd pain depression loss of apetite Plan: psych consult and as ordered
--- NOTE | 2019-01-04 09:58 | CP.PCM.PN ---
Subjective - Date & Time of Evaluation Date of Evaluation: 01/04/19 Time of Evaluation: 11:00 - Subjective Subjective: pt still has abd discomfort no apetite Objective - Vital Signs/Intake and Output Vital Signs (last 24 hours): Temp Pulse Resp BP Pulse Ox 98.2 F 84 24 157/67 H 98 01/04/19 08:00 01/04/19 08:00 01/04/19 08:00 01/04/19 08:00 01/04/19 04:00 Intake and Output: 01/04/19 01/04/19 06:59 18:59 Intake Total 1120 120 Output Total 1 Balance 1120 119 - Medications Medications: Current Medications Apixaban (Eliquis) 2.5 mg PO Q12 [facility] Last Admin: 01/04/19 09:07 Dose: 2.5 mg Aspirin (Ecotrin) 81 mg PO DAILY [facility] Last Admin: 01/04/19 09:11 Dose: 81 mg Famotidine (Pepcid) 20 mg PO DAILY [facility] Last Admin: 01/04/19 09:07 Dose: 20 mg Dextrose/Sodium Chloride (Dextrose 5%/0.45% Ns 1000 Ml) 1,000 mls @ 60 mls/hr IV .[id number] [facility] Last Admin: 01/04/19 04:50 Dose: Not Given Metronidazole (Flagyl) 500 mg in 100 mls @ 100 mls/hr IVPB Q8H [facility]; Protocol Last Admin: 01/04/19 06:00 Dose: 100 mls/hr Insulin Human Regular (Novolin R) 0 unit SC ACHS [facility]; Protocol Last Admin: 01/04/19 07:59 Dose: 1 units Metoprolol Succinate (Toprol Xl) 25 mg PO QPM [facility] Last Admin: 01/03/19 17:56 Dose: 25 mg Mirtazapine (Remeron) 30 mg PO HS [facility] Last Admin: 01/03/19 22:37 Dose: 30 mg Mirtazapine (Remeron) 15 mg PO HS [facility] Last Admin: 01/03/19 21:39 Dose: 15 mg Sodium Bicarbonate (Sodium Bicarbonate Tab) 650 mg PO BID [facility] Stop: 01/10/19 11:01 Last Admin: 01/04/19 09:07 Dose: 650 mg Vancomycin HCl (Vancocin 250mg Capsule) 250 mg PO QID [facility] Last Admin: 01/04/19 09:08 Dose: 250 mg Venlafaxine HCl (Effexor) 150 mg PO DAILY [facility] Last Admin: 01/04/19 09:08 Dose: 150 mg - Labs Labs: 01/04/19 06:27 01/04/19 06:25 PT 22.6 SECONDS (9.7-12.2) H D 12/24/18 14:57 INR 2.1 D 12/24/18 14:57 APTT 33 SECONDS (21-34) 12/24/18 14:57 - Constitutional Appears: In Acute Distress - Head Exam Head Exam: ATRAUMATIC - Eye Exam Eye Exam: Normal appearance Pupil Exam: NORMAL ACCOMODATION - ENT Exam ENT Exam: Normal Exam - Neck Exam Neck Exam: Full ROM - Respiratory Exam Respiratory Exam: NORMAL BREATHING PATTERN - Cardiovascular Exam Cardiovascular Exam: REGULAR RHYTHM - GI/Abdominal Exam GI & Abdominal Exam: Tenderness - Extremities Exam Extremities Exam: Normal Inspection - Back Exam Back Exam: NORMAL INSPECTION - Neurological Exam Neurological Exam: Awake - Psychiatric Exam Psychiatric exam: Depressed - Skin Skin Exam: Pallor Assessment and Plan - Assessment and Plan (Free Text) Assessment: ac cdef infection abd pain loss of apetite depression Plan: cont as ordered
--- NOTE | 2019-01-04 10:55 | CP.PCM.PN ---
Subjective - Date & Time of Evaluation Date of Evaluation: 01/04/19 Time of Evaluation: 10:51 - Subjective Subjective: Pt still with diarrhea, now containg red blood, without major drop in Hgb. On Eliquis and Aspirin. Very weak, poor appetite CDiff being treated with Vancomycin and Flagyl Objective - Vital Signs/Intake and Output Vital Signs (last 24 hours): Temp Pulse Resp BP Pulse Ox 98.2 F 84 24 157/67 H 98 01/04/19 08:00 01/04/19 08:00 01/04/19 08:00 01/04/19 08:00 01/04/19 04:00 Intake and Output: 01/04/19 01/04/19 06:59 18:59 Intake Total 1120 120 Output Total 1 Balance 1120 119 - Medications Medications: Current Medications Apixaban (Eliquis) 2.5 mg PO Q12 [facility] Last Admin: 01/04/19 09:07 Dose: 2.5 mg Aspirin (Ecotrin) 81 mg PO DAILY [facility] Last Admin: 01/04/19 09:11 Dose: 81 mg Famotidine (Pepcid) 20 mg PO DAILY [facility] Last Admin: 01/04/19 09:07 Dose: 20 mg Dextrose/Sodium Chloride (Dextrose 5%/0.45% Ns 1000 Ml) 1,000 mls @ 60 mls/hr IV .[id number] [facility] Last Admin: 01/04/19 04:50 Dose: Not Given Metronidazole (Flagyl) 500 mg in 100 mls @ 100 mls/hr IVPB Q8H [facility]; Protocol Last Admin: 01/04/19 06:00 Dose: 100 mls/hr Insulin Human Regular (Novolin R) 0 unit SC ACHS [facility]; Protocol Last Admin: 01/04/19 07:59 Dose: 1 units Metoprolol Succinate (Toprol Xl) 25 mg PO QPM [facility] Last Admin: 01/03/19 17:56 Dose: 25 mg Mirtazapine (Remeron) 30 mg PO HS [facility] Last Admin: 01/03/19 22:37 Dose: 30 mg Mirtazapine (Remeron) 15 mg PO HS [facility] Last Admin: 01/03/19 21:39 Dose: 15 mg Sodium Bicarbonate (Sodium Bicarbonate Tab) 650 mg PO BID [facility] Stop: 01/10/19 11:01 Last Admin: 01/04/19 09:07 Dose: 650 mg Vancomycin HCl (Vancocin 250mg Capsule) 250 mg PO QID [facility] Last Admin: 01/04/19 09:08 Dose: 250 mg Venlafaxine HCl (Effexor) 150 mg PO DAILY [facility] Last Admin: 01/04/19 09:08 Dose: 150 mg - Labs Labs: 01/04/19 06:27 01/04/19 06:25 PT 22.6 SECONDS (9.7-12.2) H D 12/24/18 14:57 INR 2.1 D 12/24/18 14:57 APTT 33 SECONDS (21-34) 12/24/18 14:57 - Constitutional Appears: Chronically Ill - Head Exam Head Exam: NORMOCEPHALIC - Respiratory Exam Respiratory Exam: Clear to Ausculation Bilateral - Cardiovascular Exam Cardiovascular Exam: REGULAR RHYTHM - GI/Abdominal Exam GI & Abdominal Exam: Soft, Normal Bowel Sounds. absent: Distended, Guarding, Tenderness, Rebound Assessment and Plan (1) Clostridium difficile colitis Assessment & Plan: Continues to have diarrhea, now blood tinged Will increase Vancomycin dose and monitor response. Consider Dificd if diarrhea persists Recommend holding Eliquis and Aspirin due to bleeding from colitis. To discuss with Pet Handler Status: Acute
--- NOTE | 2019-01-04 11:04 | CP.PCM.PN ---
Subjective - Date & Time of Evaluation Date of Evaluation: 01/04/19 Time of Evaluation: 11:01 - Subjective Subjective: still in icu oob today awake smiling still has diareahea no rectal bleeding no abd pain today Objective - Vital Signs/Intake and Output Vital Signs (last 24 hours): Temp Pulse Resp BP Pulse Ox 98.2 F 84 24 157/67 H 98 01/04/19 08:00 01/04/19 08:00 01/04/19 08:00 01/04/19 08:00 01/04/19 04:00 Intake and Output: 01/04/19 01/04/19 06:59 18:59 Intake Total 1120 120 Output Total 1 Balance 1120 119 - Medications Medications: Current Medications Apixaban (Eliquis) 2.5 mg PO Q12 [facility] Last Admin: 01/04/19 09:07 Dose: 2.5 mg Aspirin (Ecotrin) 81 mg PO DAILY [facility] Last Admin: 01/04/19 09:11 Dose: 81 mg Famotidine (Pepcid) 20 mg PO DAILY [facility] Last Admin: 01/04/19 09:07 Dose: 20 mg Dextrose/Sodium Chloride (Dextrose 5%/0.45% Ns 1000 Ml) 1,000 mls @ 60 mls/hr IV .[id number] [facility] Last Admin: 01/04/19 04:50 Dose: Not Given Metronidazole (Flagyl) 500 mg in 100 mls @ 100 mls/hr IVPB Q8H [facility]; Protocol Last Admin: 01/04/19 06:00 Dose: 100 mls/hr Insulin Human Regular (Novolin R) 0 unit SC ACHS [facility]; Protocol Last Admin: 01/04/19 07:59 Dose: 1 units Metoprolol Succinate (Toprol Xl) 25 mg PO QPM [facility] Last Admin: 01/03/19 17:56 Dose: 25 mg Mirtazapine (Remeron) 30 mg PO HS [facility] Last Admin: 01/03/19 22:37 Dose: 30 mg Mirtazapine (Remeron) 15 mg PO HS [facility] Last Admin: 01/03/19 21:39 Dose: 15 mg Sodium Bicarbonate (Sodium Bicarbonate Tab) 650 mg PO BID [facility] Stop: 01/10/19 11:01 Last Admin: 01/04/19 09:07 Dose: 650 mg Vancomycin HCl (Vancocin 250mg Capsule) 250 mg PO QID [facility] Last Admin: 01/04/19 09:08 Dose: 250 mg Vancomycin HCl (Vancocin 250mg Capsule) 500 mg PO QID [facility] Venlafaxine HCl (Effexor) 150 mg PO DAILY [facility] Last Admin: 01/04/19 09:08 Dose: 150 mg - Labs Labs: 01/04/19 06:27 01/04/19 06:25 PT 22.6 SECONDS (9.7-12.2) H D 12/24/18 14:57 INR 2.1 D 12/24/18 14:57 APTT 33 SECONDS (21-34) 12/24/18 14:57 - Constitutional Appears: Older Than Stated Age - Head Exam Head Exam: NORMAL INSPECTION - Eye Exam Eye Exam: Normal appearance Pupil Exam: NORMAL ACCOMODATION - ENT Exam ENT Exam: Mucous Membranes Moist - Neck Exam Neck Exam: Full ROM - Respiratory Exam Respiratory Exam: Clear to Ausculation Bilateral - Cardiovascular Exam Cardiovascular Exam: REGULAR RHYTHM - GI/Abdominal Exam GI & Abdominal Exam: Normal Bowel Sounds - Extremities Exam Extremities Exam: Full ROM - Back Exam Back Exam: NORMAL INSPECTION - Neurological Exam Neurological Exam: Awake, Oriented x3 - Psychiatric Exam Psychiatric exam: Normal Affect - Skin Skin Exam: Pallor Assessment and Plan - Assessment and Plan (Free Text) Assessment: cdiff infection aneamia depresion Plan: cont treatment
[2019-01-04] MEDS ORDERED: Vancomycin Hydrochloride 250 mg Capsule (Oral) PO SCH (14:00)
--- NOTE | 2019-01-04 15:33 | CP.PCM.PN ---
Subjective - Date & Time of Evaluation Date of Evaluation: 01/04/19 Time of Evaluation: 15:32 - Subjective Subjective: Nephrology Consultation Note: Assessment: stable Acute Kidney Injury (N17.9) likely due to ATN due to sepsis, IV contrast : resolved C.Diff colitis, hagma with respi compensation, hyponatremia hypocalcemia nagma Diabetic chronic Kidney Disease (E11.22) Hypertensive Chronic Kidney Disease (I12.9) Chronic Kidney Disease (N18.3) Stage 3 with ? mg proteinuria (R80.9) Anemia (D64.9) hx of dig toxicity, A fib, CVA, hypothyroidism left adrenal nodule Plan No acute need for renal replacement therapy at this time. renal function improv ing Hypertension control with meds as ordered. Maintain hemodynamics stable. Avoid hypotension. Patient not on ACEI/ARB due to recent LOUIE, can add if needed for elevated BP. increased toprol XL to 25 mg/d Monitor Input/Output, daily weights and renal function with basic metabolic panel supplement lytes as needed added sodium bicarb 650 bid lasix prn can be given left adrenal nodule work up as outpt Dose meds/antibiotics for GFR >60. Glycemic control Further work up/management as per primary team Thanks for allowing me to participate in care of your patient. Will follow patient with you. Please call if any Qs. had d/w team Dr Raghu Solis Office: [phone] Chief Complaint; pain abdomen Reason for consult: Acute Kidney Injury HPI: Pt is a 73 F with hx of diabetes Mellitus ( years), hypertension (years) CKD 3 with baseline cr 1.2-1.4, hx of dig toxicity, A fib, CVA, hypothyroidism presented with complaints of pain abdomen and being managed for sepsis, colitis, transferred to ICU Denies OTC/herbal meds or NSAIDs Noted recent iodinated contrast exposure. Noted obvious episodes of low BP (99/61). pt not aware about kidney disease in past ROS: pt lying comfortably feels better. no urine complaints. denies pain abdomen Physical Examination: General Appearance: comfortable, in no acute respiratory distress, co-operative . well appearing Vitals reviewed and noted as below Head; Atraumatic, normocephalic ENT: no ulcers no thrush. Tongue is midline. Oropharynx: no rash or ulcers. EYES: Pupils are equal, round and reactive to light accommodation. Eye muscles and extraocular movement intact. Sclera is anicteric. Neck; supple no lymphadenopathy, no thyromegaly or bruit Lungs: Normal respiratory rate/effort. Breath sounds bilateral basal crackles Heart: normal rate. s1s2 normal. No rub or gallop. Extremities: no edema. No varicose veins Neurological: Patient is lying comfortably awake alert follow commands Skin: Warm and dry. Normal turgor. No rash. Palpitation: Normal elasticity for age Abdomen: Abdomen is soft. Bowel sounds +. There is no abdominal tenderness, no guarding/rigidity no organomegaly Psych: deferred MSK: no joint tenderness or swelling. Digits and nails normal, no deformity : kidney or bladder not palpable Labs/imaging reviewed. Past medical history, past surgical history, family history, social history, allergy reviewed and noted as below Family hx: no hx of CKD. Rest non-contributory Objective - Vital Signs/Intake and Output Vital Signs (last 24 hours): Temp Pulse Resp BP Pulse Ox 98.6 F 112 H 21 127/72 98 01/04/19 12:00 01/04/19 12:00 01/04/19 12:00 01/04/19 12:00 01/04/19 04:00 Intake and Output: 01/04/19 01/04/19 06:59 18:59 Intake Total 1120 1030 Output Total 2 Balance 1120 1028 - Medications Medications: Current Medications Famotidine (Pepcid) 20 mg PO DAILY [facility] Last Admin: 01/04/19 09:07 Dose: 20 mg Dextrose/Sodium Chloride (Dextrose 5%/0.45% Ns 1000 Ml) 1,000 mls @ 60 mls/hr IV .[id number] [facility] Last Admin: 01/04/19 04:50 Dose: Not Given Metronidazole (Flagyl) 500 mg in 100 mls @ 100 mls/hr IVPB Q8H [facility]; Protocol Last Admin: 01/04/19 13:36 Dose: 100 mls/hr Insulin Human Regular (Novolin R) 0 unit SC ACHS [facility]; Protocol Last Admin: 01/04/19 12:00 Dose: 1 units Metoprolol Succinate (Toprol Xl) 25 mg PO QPM [facility] Last Admin: 01/03/19 17:56 Dose: 25 mg Mirtazapine (Remeron) 30 mg PO HS [facility] Last Admin: 01/03/19 22:37 Dose: 30 mg Mirtazapine (Remeron) 15 mg PO HS [facility] Last Admin: 01/03/19 21:39 Dose: 15 mg Sodium Bicarbonate (Sodium Bicarbonate Tab) 650 mg PO BID [facility] Stop: 01/10/19 11:01 Last Admin: 01/04/19 09:07 Dose: 650 mg Vancomycin HCl (Vancocin 250mg Capsule) 500 mg PO Q6 [facility] Stop: 01/11/19 18:01 Venlafaxine HCl (Effexor) 150 mg PO DAILY [facility] Last Admin: 01/04/19 09:08 Dose: 150 mg - Labs Labs: 01/04/19 06:27 01/04/19 06:25 PT 22.6 SECONDS (9.7-12.2) H D 12/24/18 14:57 INR 2.1 D 12/24/18 14:57 APTT 33 SECONDS (21-34) 12/24/18 14:57
--- NOTE | 2019-01-04 16:28 | PN ---
DATE: 01/04/2019 SUBJECTIVE: The patient was reported to have bloody diarrhea. She denied any chest pain or dizziness. PHYSICAL EXAMINATION: VITAL SIGNS: Blood pressure 148/75, heart rate 100, temperature 98.5, respirations 23. HEENT: Pale conjunctivae. CHEST: Diminished breath sounds over the bases. HEART: S1, S2. Regular. ABDOMEN: Soft. EXTREMITIES: No edema. LABORATORY DATA: Today's hemoglobin and hematocrit 9.6 and 30.7 with a nearly drop of 1 g compared to three days ago. Today's SMA-7: Sodium 134, potassium 3.8, chloride 108, CO2 of 21, glucose 129, BUN 12, creatinine 1. Calcium is 7.7. ASSESSMENT: 1. History of paroxysmal atrial fibrillation. 2. Clostridium difficile colitis with bloody diarrhea. 3. Improved renal insufficiency. 4. Depression. 5. Improved sinus tachycardia. RECOMMENDATIONS: Discontinue aspirin and Eliquis. Continue Pepcid 20 mg orally once a day, Toprol-XL 25 mg once a day, oral vancomycin 250 mg four times a day, intravenous Flagyl 500 mg every 8 hours. I requested that the patient be connected to monitor tech to monitor her heart rate. Sukhdev Dave MD
--- NOTE | 2019-01-04 17:17 | PN ---
DATE: 01/04/2019 SUBJECTIVE: The patient seems improved psychiatric martin, more verbal, interactive today. She is eating better, more cooperative and conversing in Mongolian. The patient seems to be doing better when her dose of Remeron was put back on the original dose, which is 45 mg and Effexor which we withheld for a few days was resumed, as the patient's had some blood pressure problems earlier. According to her, she is sleeping better. She wants to go home, but has agreed to go for [facility]. The patient, however, is still not medically cleared. She is still in ICU. PHYSICAL EXAMINATION: VITAL SIGNS: Temperature is 98.2, pulse 84, blood pressure 157/67, respirations 24, and oxygen saturation 98%. GENERAL: The patient is alert, conversing in Mongolian, seen in ICU bed #2, more cooperative and verbal. She states she wants to go home. SKIN: No diaphoresis. HEENT: No headache. No dizziness. NECK: Supple. RESPIRATORY: No dyspnea. CARDIOVASCULAR: No chest pain. GASTROINTESTINAL: Her appetite is variable but improving, abdominal pain. EXTREMITIES: The patient has been complaining of weakness. GENITOURINARY: No dysuria. NEUROLOGIC: Alert and oriented x3. MENTAL STATUS EXAMINATION: An elderly female of Malaysian descent, oriented x3. Mood is a little brighter, less depressed, less anxious, less somatic. Affect is reactive. Speech is spontaneous. The patient speaks more Mongolian today. The patient speaks at her baseline very good Mongolian; however, when she decompensates, the patient prefers to speak only Danish. Thought process is coherent. Thought content, the patient has agreed to go for [facility]. She does not want to go home. No psychosis. No suicidal or homicidal ideation. The patient is sleeping a little better. Attention seems to be fair. Insight and judgment impaired. Impulse control is fair. IMPRESSION: History of recurrent depression, anxiety, as well as colitis. PLAN AND RECOMMENDATION: The patient seen, meds reviewed. We will keep her under usual maintenance dose of psych meds. Effexor 150 mg at bedtime and Remeron 45 mg at bedtime. Continue treatment and plan as outlined. As the patient is showing some improvement, the patient does not need to go for geropsych admission at this time. The patient may go instead once medically cleared to [facility] or the facility of her choice. Alexandre Kumari MD
[2019-01-04] MEDS: Metoprolol Succinate 25 mg XL Tab PO SCH (17:27)
--- NOTE | 2019-01-04 18:30 | CP.PCM.PN ---
Subjective - Date & Time of Evaluation Date of Evaluation: 01/04/19 Time of Evaluation: 07:00 - Subjective Subjective: awake alert family at bedside in NAD +LBM with blood- GI on board will try to obtain difcid from outside pharmacy - pharmacy says its not formulary Objective - Vital Signs/Intake and Output Vital Signs (last 24 hours): Temp Pulse Resp BP Pulse Ox 98.5 F 115 H 22 130/82 98 01/04/19 16:00 01/04/19 16:00 01/04/19 16:00 01/04/19 16:00 01/04/19 04:00 Intake and Output: 01/04/19 01/04/19 06:59 18:59 Intake Total 1120 1030 Output Total 2 Balance 1120 1028 - Medications Medications: Current Medications Famotidine (Pepcid) 20 mg PO DAILY [facility] Last Admin: 01/04/19 09:07 Dose: 20 mg Dextrose/Sodium Chloride (Dextrose 5%/0.45% Ns 1000 Ml) 1,000 mls @ 60 mls/hr IV .[id number] [facility] Last Admin: 01/04/19 17:29 Dose: 60 mls/hr Metronidazole (Flagyl) 500 mg in 100 mls @ 100 mls/hr IVPB Q8H [facility]; Protocol Last Admin: 01/04/19 13:36 Dose: 100 mls/hr Insulin Human Regular (Novolin R) 0 unit SC ACHS [facility]; Protocol Last Admin: 01/04/19 16:32 Dose: 1 units Metoprolol Succinate (Toprol Xl) 25 mg PO QPM [facility] Last Admin: 01/04/19 17:27 Dose: 25 mg Mirtazapine (Remeron) 30 mg PO HS [facility] Last Admin: 01/03/19 22:37 Dose: 30 mg Mirtazapine (Remeron) 15 mg PO HS [facility] Last Admin: 01/03/19 21:39 Dose: 15 mg Sodium Bicarbonate (Sodium Bicarbonate Tab) 650 mg PO BID [facility] Stop: 01/10/19 11:01 Last Admin: 01/04/19 17:27 Dose: 650 mg Vancomycin HCl (Vancocin 250mg Capsule) 500 mg PO Q6 [facility] Stop: 01/11/19 18:01 Last Admin: 01/04/19 17:27 Dose: 500 mg Venlafaxine HCl (Effexor) 150 mg PO DAILY [facility] Last Admin: 01/04/19 09:08 Dose: 150 mg - Labs Labs: 01/04/19 06:27 01/04/19 06:25 PT 22.6 SECONDS (9.7-12.2) H D 12/24/18 14:57 INR 2.1 D 12/24/18 14:57 APTT 33 SECONDS (21-34) 12/24/18 14:57 - Constitutional Appears: Confused, Cachectic, Chronically Ill - Head Exam Head Exam: NORMOCEPHALIC - Eye Exam Eye Exam: EOMI, Normal appearance, PERRL Pupil Exam: NORMAL ACCOMODATION, PERRL - ENT Exam ENT Exam: Mucous Membranes Moist, Normal Exam - Neck Exam Neck Exam: Full ROM, Normal Inspection. absent: Lymphadenopathy - Respiratory Exam Respiratory Exam: Clear to Ausculation Bilateral, NORMAL BREATHING PATTERN - Cardiovascular Exam Cardiovascular Exam: REGULAR RHYTHM, +S1, +S2. absent: Murmur - GI/Abdominal Exam GI & Abdominal Exam: Soft, Normal Bowel Sounds. absent: Tenderness - Rectal Exam Rectal Exam: Deferred, Bloody Stool - Exam Exam: NORMAL INSPECTION - Extremities Exam Extremities Exam: Full ROM, Normal Capillary Refill, Normal Inspection. absent: Joint Swelling, Pedal Edema - Back Exam Back Exam: NORMAL INSPECTION - Neurological Exam Neurological Exam: Alert, Altered, Awake, CN II-XII Intact - Psychiatric Exam Psychiatric exam: Normal Affect, Normal Mood - Skin Skin Exam: Dry, Intact, Normal Color Assessment and Plan (1) Abdominal pain Status: Acute (2) Colitis Status: Acute (3) Sepsis Status: Acute (4) Depressed Status: Acute (5) Renal insufficiency Status: Acute (6) Change in mental status Status: Chronic (7) Dementia Status: Chronic (8) LOUIE (acute kidney injury) Status: Resolved (9) Atrial fibrillation with RVR Status: Resolved (10) Congestive cardiac failure Status: Resolved (11) Renal insufficiency Status: Resolved (12) CVA (cerebral vascular accident) Status: Ruled-out (13) Seizures Status: Ruled-out - Assessment and Plan (Free Text) Assessment: severe c diff colitis/ sepsis rectal bleed GI on board will try to obtain difcid from outside pharmacy - pharmacy says its not formulary
[2019-01-05] MEDS: metroNIDAZOLE IV 500 mg/100 ml 500 MG/100 ML BAG IVPB SCH ×3 (05:34→21:45)
[2019-01-05] MEDS: Vancomycin Hydrochloride 250 mg Capsule (Oral) PO SCH ×4 (05:36→18:05)
[2019-01-05 06:29] LABS: BASO % 0.4 % (0.0-2.0); HEMOGLOBIN 9.5 g/dL (11.0-16.0); LYMPH # 2.3 K/uL (1.0-4.3); LYMPH % 33.2 % (20.0-40.0); MEAN CELL VOLUME 83.3 fL (81.0-99.0); MEAN CORPUSCULAR HEMOGLOBIN 25.5 pg (27.0-31.0); MEAN CORPUSCULAR HGB CONC 30.6 g/dL (33.0-37.0); MEAN PLATELET VOLUME 8.4 fL (7.2-11.7); MONO # 0.6 K/uL (0.0-0.8); MONO % 8.3 % (0.0-10.0); NEUT % 58.1 % (50.0-75.0); NRBC % 0.1 % (0.0-2.0); RBC 3.73 Mil/uL (3.80-5.20); RED CELL DISTRIBUTION WIDTH 19.6 % (11.5-14.5); WHITE BLOOD COUNT 6.8 K/uL (4.8-10.8)
[2019-01-05 06:50] LABS: ALB/GLOB RATIO 0.9 (1.0-2.1); ALBUMIN 2.4 g/dL (3.5-5.0); ALT/SGPT 27 U/L (9-52); AST/SGOT 28 U/L (14-36); BLOOD UREA NITROGEN 13 mg/dL (7-17); CALCIUM 7.4 mg/dl (8.6-10.4); GFR NON-AFRICAN AMERICAN 54
[2019-01-05] MEDS: (Novolin R) Insulin Human Regular 100 units/ml vial SC SCH ×3 (07:47→22:40)
--- NOTE | 2019-01-05 13:27 | CP.PCM.PN ---
Subjective - Date & Time of Evaluation Date of Evaluation: 01/05/19 Time of Evaluation: 13:24 - Subjective Subjective: f/u colitis. Sl Rbleed. Abdomen- full No fever, SZ, melena, hemoptysis, hematuria, hematemeesis. Objective - Vital Signs/Intake and Output Vital Signs (last 24 hours): Temp Pulse Resp BP Pulse Ox 98.9 F 102 H 26 H 131/68 98 01/05/19 04:00 01/05/19 04:00 01/05/19 04:00 01/05/19 04:00 01/05/19 04:00 Intake and Output: 01/05/19 01/05/19 06:59 18:59 Intake Total 1090 Output Total 2 Balance 1088 - Medications Medications: Current Medications Famotidine (Pepcid) 20 mg PO DAILY [facility] Last Admin: 01/05/19 09:46 Dose: 20 mg Dextrose/Sodium Chloride (Dextrose 5%/0.45% Ns 1000 Ml) 1,000 mls @ 60 mls/hr IV .[id number] [facility] Last Admin: 01/04/19 21:30 Dose: Not Given Metronidazole (Flagyl) 500 mg in 100 mls @ 100 mls/hr IVPB Q8H [facility]; Protocol Last Admin: 01/05/19 05:34 Dose: 100 mls/hr Insulin Human Regular (Novolin R) 0 unit SC ACHS [facility]; Protocol Last Admin: 01/05/19 07:47 Dose: 1 units Metoprolol Succinate (Toprol Xl) 50 mg PO QPM [facility] Mirtazapine (Remeron) 30 mg PO HS [facility] Last Admin: 01/04/19 22:03 Dose: 30 mg Mirtazapine (Remeron) 15 mg PO HS [facility] Last Admin: 01/04/19 22:02 Dose: 15 mg Sodium Bicarbonate (Sodium Bicarbonate Tab) 1,300 mg PO BID [facility] Stop: 01/10/19 12:01 Vancomycin HCl (Vancocin 250mg Capsule) 500 mg PO Q6 [facility] Stop: 01/11/19 18:01 Last Admin: 01/05/19 05:36 Dose: 500 mg Venlafaxine HCl (Effexor) 150 mg PO DAILY [facility] Last Admin: 01/04/19 09:08 Dose: 150 mg - Labs Labs: 01/05/19 06:19 01/05/19 06:19 PT 22.6 SECONDS (9.7-12.2) H D 12/24/18 14:57 INR 2.1 D 12/24/18 14:57 APTT 33 SECONDS (21-34) 12/24/18 14:57 - Constitutional Appears: Non-toxic - Respiratory Exam Respiratory Exam: Clear to Ausculation Bilateral - Cardiovascular Exam Cardiovascular Exam: RRR - GI/Abdominal Exam GI & Abdominal Exam: Distended, Soft, Normal Bowel Sounds. absent: Guarding, Mass, Rebound - Extremities Exam Extremities Exam: Pedal Edema - Neurological Exam Neurological Exam: Alert, Awake. absent: Oriented x3 Assessment and Plan (1) Depression Status: Acute (2) Anemia Assessment & Plan: Hb stable Status: Acute (3) Abdominal pain Status: Acute (4) Colitis Status: Acute (5) Sepsis Status: Acute (6) Renal insufficiency Status: Acute (7) Rectal bleed Assessment & Plan: but Hb is stable. Consdier int hem, colitis. P= po vanco, dificid -if possibele, KUB, consider flex sig. Status: Acute
--- NOTE | 2019-01-05 15:01 | CP.PCM.PN ---
Subjective - Date & Time of Evaluation Date of Evaluation: 01/05/19 Time of Evaluation: 15:01 - Subjective Subjective: Nephrology Consultation Note: Assessment: stable Acute Kidney Injury (N17.9) likely due to ATN due to sepsis, IV contrast : resolved C.Diff colitis, hagma with respi compensation, hyponatremia hypocalcemia nagma Diabetic chronic Kidney Disease (E11.22) Hypertensive Chronic Kidney Disease (I12.9) Chronic Kidney Disease (N18.3) Stage 3 with ? mg proteinuria (R80.9) Anemia (D64.9) hx of dig toxicity, A fib, CVA, hypothyroidism left adrenal nodule Plan No acute need for renal replacement therapy at this time. renal function improv ing Hypertension control with meds as ordered. Maintain hemodynamics stable. Avoid hypotension. Patient not on ACEI/ARB due to recent LOUIE, can add if needed for elevated BP. increased toprol XL to 50 mg/d Monitor Input/Output, daily weights and renal function with basic metabolic panel supplement lytes as needed Increased sodium bicarb 1300 bid lasix prn can be given left adrenal nodule work up as outpt Dose meds/antibiotics for GFR >60. Glycemic control Further work up/management as per primary team Thanks for allowing me to participate in care of your patient. Will follow patient with you. Please call if any Qs. had d/w team Dr Raghu Solis Office: [phone] Chief Complaint; pain abdomen Reason for consult: Acute Kidney Injury HPI: Pt is a 73 F with hx of diabetes Mellitus ( years), hypertension (years) CKD 3 with baseline cr 1.2-1.4, hx of dig toxicity, A fib, CVA, hypothyroidism presented with complaints of pain abdomen and being managed for sepsis, colitis, transferred to ICU Denies OTC/herbal meds or NSAIDs Noted recent iodinated contrast exposure. Noted obvious episodes of low BP (99/61). pt not aware about kidney disease in past ROS: pt lying comfortably feels better. no urine complaints. denies pain abdomen Physical Examination: General Appearance: comfortable, in no acute respiratory distress, co-operative . well appearing Vitals reviewed and noted as below Head; Atraumatic, normocephalic ENT: no ulcers no thrush. Tongue is midline. Oropharynx: no rash or ulcers. EYES: Pupils are equal, round and reactive to light accommodation. Eye muscles and extraocular movement intact. Sclera is anicteric. Neck; supple no lymphadenopathy, no thyromegaly or bruit Lungs: Normal respiratory rate/effort. Breath sounds bilateral basal crackles Heart: normal rate. s1s2 normal. No rub or gallop. Extremities: no edema. No varicose veins Neurological: Patient is lying comfortably awake alert follow commands Skin: Warm and dry. Normal turgor. No rash. Palpitation: Normal elasticity for age Abdomen: Abdomen is soft. Bowel sounds +. There is upper abdominal tenderness, no guarding/rigidity no organomegaly Psych: deferred MSK: no joint tenderness or swelling. Digits and nails normal, no deformity : kidney or bladder not palpable Labs/imaging reviewed. Past medical history, past surgical history, family history, social history, allergy reviewed and noted as below Family hx: no hx of CKD. Rest non-contributory Objective - Vital Signs/Intake and Output Vital Signs (last 24 hours): Temp Pulse Resp BP Pulse Ox 98.9 F 102 H 26 H 131/68 98 01/05/19 04:00 01/05/19 04:00 01/05/19 04:00 01/05/19 04:00 01/05/19 04:00 Intake and Output: 01/05/19 01/05/19 06:59 18:59 Intake Total 1090 Output Total 2 Balance 1088 - Medications Medications: Current Medications Famotidine (Pepcid) 20 mg PO DAILY [facility] Last Admin: 01/05/19 09:46 Dose: 20 mg Dextrose/Sodium Chloride (Dextrose 5%/0.45% Ns 1000 Ml) 1,000 mls @ 60 mls/hr IV .[id number] [facility] Last Admin: 01/04/19 21:30 Dose: Not Given Metronidazole (Flagyl) 500 mg in 100 mls @ 100 mls/hr IVPB Q8H [facility]; Protocol Last Admin: 01/05/19 05:34 Dose: 100 mls/hr Insulin Human Regular (Novolin R) 0 unit SC ACHS [facility]; Protocol Last Admin: 01/05/19 07:47 Dose: 1 units Metoprolol Succinate (Toprol Xl) 50 mg PO QPM [facility] Mirtazapine (Remeron) 30 mg PO HS [facility] Last Admin: 01/04/19 22:03 Dose: 30 mg Mirtazapine (Remeron) 15 mg PO HS [facility] Last Admin: 01/04/19 22:02 Dose: 15 mg Sodium Bicarbonate (Sodium Bicarbonate Tab) 1,300 mg PO BID [facility] Stop: 01/10/19 12:01 Vancomycin HCl (Vancocin 250mg Capsule) 500 mg PO Q6 [facility] Stop: 01/11/19 18:01 Last Admin: 01/05/19 05:36 Dose: 500 mg Venlafaxine HCl (Effexor) 150 mg PO DAILY [facility] Last Admin: 01/04/19 09:08 Dose: 150 mg - Labs Labs: 01/05/19 06:19 01/05/19 06:19 PT 22.6 SECONDS (9.7-12.2) H D 12/24/18 14:57 INR 2.1 D 12/24/18 14:57 APTT 33 SECONDS (21-34) 12/24/18 14:57
[2019-01-05] MEDS ORDERED: Home Med 1 UNIT PO SCH (16:00)
--- NOTE | 2019-01-05 16:08 | RAD ---
Date of service: 01/05/2019 HISTORY: abdom distention COMPARISON: 12/28/2018 FINDINGS: BOWEL: A loop of right-sided a bowel probably: Has some moderate distension. The small-bowel loops appear normal in caliber left lateral to it. No other colonic loops are particularly distended. There is minimal gas in the stomach as well suggested. No bowel obstruction is believed present. A focal ileus of the right colon is not excluded. Top-normal gaseous distension of a right colon loop is also a consideration. This is not significantly changed. BONES: Thoraco lumbar mild spondylosis expected accentuated facet hypertrophic arthrosis left L4-5 and L5-S1 levels. Extensive hardware over each hip. OTHER FINDINGS: Bilateral hemipelvic phleboliths. Generalized osteopenia. IMPRESSION: Nonspecific bowel gas pattern. No suspect mechanical obstruction seen. Findings as noted above.
--- NOTE | 2019-01-05 17:37 | CP.PCM.PN ---
Subjective - Date & Time of Evaluation Date of Evaluation: 01/05/19 Time of Evaluation: 17:34 - Subjective Subjective: pt still in icu lethargic today still has diarehea boody today abd distened and tender Objective - Vital Signs/Intake and Output Vital Signs (last 24 hours): Temp Pulse Resp BP Pulse Ox 98.9 F 102 H 26 H 131/68 98 01/05/19 04:00 01/05/19 04:00 01/05/19 04:00 01/05/19 04:00 01/05/19 04:00 Intake and Output: 01/05/19 01/05/19 06:59 18:59 Intake Total 1090 Output Total 2 Balance 1088 - Medications Medications: Current Medications Famotidine (Pepcid) 20 mg PO DAILY [facility] Last Admin: 01/05/19 09:46 Dose: 20 mg Home Med (Patient's Own Medication) 1 tab PO Q12H [facility] Dextrose/Sodium Chloride (Dextrose 5%/0.45% Ns 1000 Ml) 1,000 mls @ 60 mls/hr IV .[id number] [facility] Last Admin: 01/04/19 21:30 Dose: Not Given Metronidazole (Flagyl) 500 mg in 100 mls @ 100 mls/hr IVPB Q8H [facility]; Protocol Last Admin: 01/05/19 05:34 Dose: 100 mls/hr Insulin Human Regular (Novolin R) 0 unit SC ACHS [facility]; Protocol Last Admin: 01/05/19 07:47 Dose: 1 units Metoprolol Succinate (Toprol Xl) 50 mg PO QPM [facility] Mirtazapine (Remeron) 30 mg PO HS [facility] Last Admin: 01/04/19 22:03 Dose: 30 mg Mirtazapine (Remeron) 15 mg PO HS [facility] Last Admin: 01/04/19 22:02 Dose: 15 mg Sodium Bicarbonate (Sodium Bicarbonate Tab) 1,300 mg PO BID [facility] Stop: 01/10/19 12:01 Vancomycin HCl (Vancocin 250mg Capsule) 500 mg PO Q6 [facility] Stop: 01/11/19 18:01 Last Admin: 01/05/19 05:36 Dose: 500 mg Venlafaxine HCl (Effexor) 150 mg PO DAILY [facility] Last Admin: 01/04/19 09:08 Dose: 150 mg - Labs Labs: 01/05/19 06:19 01/05/19 06:19 PT 22.6 SECONDS (9.7-12.2) H D 12/24/18 14:57 INR 2.1 D 12/24/18 14:57 APTT 33 SECONDS (21-34) 12/24/18 14:57 - Constitutional Appears: Non-toxic, In Acute Distress - Head Exam Head Exam: ATRAUMATIC - Eye Exam Eye Exam: Normal appearance Additional comments: closing her eyes - ENT Exam ENT Exam: Mucous Membranes Dry - Respiratory Exam Respiratory Exam: Clear to Ausculation Bilateral - Cardiovascular Exam Cardiovascular Exam: REGULAR RHYTHM - GI/Abdominal Exam GI & Abdominal Exam: Tenderness Additional comments: distended - Exam Exam: NORMAL INSPECTION - Back Exam Back Exam: NORMAL INSPECTION - Neurological Exam Additional comments: lrthargic - Psychiatric Exam Psychiatric exam: Depressed - Skin Skin Exam: Pallor Assessment and Plan - Assessment and Plan (Free Text) Assessment: blody diarehea abd pain depression lethargic Plan: cont as ordered
[2019-01-05] MEDS: Dextrose 5%/0.45% NS 1,000 ML IV SCH (18:06)
[2019-01-05] MEDS: DIFICID 200 MG PO SCH (18:07)
[2019-01-05] MEDS: Metoprolol Succinate 50 mg XL Tab PO SCH (18:09)
--- NOTE | 2019-01-05 18:54 | CP.PCM.PN ---
Subjective - Date & Time of Evaluation Date of Evaluation: 01/05/19 Time of Evaluation: 08:00 - Subjective Subjective: difcid obtained by family from outside pharmacy loly d/c'd consider IV IG ? transfer to a facility with fecal transplant protocol Objective - Vital Signs/Intake and Output Vital Signs (last 24 hours): Temp Pulse Resp BP Pulse Ox 98.0 F 102 H 26 H 131/68 98 01/05/19 16:00 01/05/19 04:00 01/05/19 04:00 01/05/19 04:00 01/05/19 04:00 Intake and Output: 01/05/19 01/05/19 06:59 18:59 Intake Total 1090 75 Output Total 2 Balance 1088 75 - Medications Medications: Current Medications Famotidine (Pepcid) 20 mg PO DAILY [facility] Last Admin: 01/05/19 09:46 Dose: 20 mg Home Med (Patient's Own Medication) 1 tab PO Q12H [facility] Last Admin: 01/05/19 18:07 Dose: 1 tab Dextrose/Sodium Chloride (Dextrose 5%/0.45% Ns 1000 Ml) 1,000 mls @ 60 mls/hr IV .[id number] [facility] Last Admin: 01/05/19 18:06 Dose: Not Given Metronidazole (Flagyl) 500 mg in 100 mls @ 100 mls/hr IVPB Q8H [facility]; Protocol Last Admin: 01/05/19 14:05 Dose: 100 mls/hr Insulin Human Regular (Novolin R) 0 unit SC ACHS [facility]; Protocol Last Admin: 01/05/19 18:05 Dose: Not Given Metoprolol Succinate (Toprol Xl) 50 mg PO QPM [facility] Last Admin: 01/05/19 18:09 Dose: 50 mg Mirtazapine (Remeron) 30 mg PO HS [facility] Last Admin: 01/04/19 22:03 Dose: 30 mg Mirtazapine (Remeron) 15 mg PO HS [facility] Last Admin: 01/04/19 22:02 Dose: 15 mg Sodium Bicarbonate (Sodium Bicarbonate Tab) 1,300 mg PO BID [facility] Stop: 01/10/19 12:01 Last Admin: 01/05/19 18:05 Dose: 1,300 mg Venlafaxine HCl (Effexor) 150 mg PO DAILY [facility] Last Admin: 01/05/19 10:06 Dose: 150 mg - Labs Labs: 01/05/19 06:19 01/05/19 06:19 PT 22.6 SECONDS (9.7-12.2) H D 12/24/18 14:57 INR 2.1 D 12/24/18 14:57 APTT 33 SECONDS (21-34) 12/24/18 14:57 - Constitutional Appears: Confused, Chronically Ill - Head Exam Head Exam: NORMOCEPHALIC - Eye Exam Eye Exam: absent: Scleral icterus - ENT Exam ENT Exam: Mucous Membranes Dry - Neck Exam Neck Exam: absent: Lymphadenopathy - Respiratory Exam Respiratory Exam: Decreased Breath Sounds - Cardiovascular Exam Cardiovascular Exam: REGULAR RHYTHM - GI/Abdominal Exam GI & Abdominal Exam: Distended, Guarding, Tenderness - Rectal Exam Rectal Exam: Deferred - Exam Exam: NORMAL INSPECTION - Extremities Exam Extremities Exam: absent: Pedal Edema - Back Exam Back Exam: absent: CVA tenderness (L), CVA tenderness (R) - Neurological Exam Neurological Exam: Altered - Psychiatric Exam Psychiatric exam: Depressed Assessment and Plan (1) Abdominal pain Status: Acute (2) Colitis Status: Acute (3) Sepsis Status: Acute (4) Depressed Status: Acute (5) Renal insufficiency Status: Acute (6) Change in mental status Status: Chronic (7) Dementia Status: Chronic (8) LOUIE (acute kidney injury) Status: Resolved (9) Atrial fibrillation with RVR Status: Resolved (10) Congestive cardiac failure Status: Resolved (11) Renal insufficiency Status: Resolved (12) CVA (cerebral vascular accident) Status: Ruled-out (13) Seizures Status: Ruled-out - Assessment and Plan (Free Text) Assessment: start difcid poor prognosis
--- NOTE | 2019-01-05 20:15 | PN ---
DATE: 01/05/2019 SUBJECTIVE: The patient denied any chest pain or abdominal pain. She is currently in sinus tachycardia with a heart rate of 108. PHYSICAL EXAMINATION: VITAL SIGNS: Blood pressure 121/68, heart rate 108, temperature 98.9, respirations 26. HEENT: Normocephalic. CHEST: Diminished breath sounds over the bases. HEART: S1 and S2, regular. EXTREMITIES: 1+ pitting edema. LABORATORY DATA: Today's SMA-7: Sodium 134, potassium 3.7, chloride 108, CO2 of 20, glucose 134, BUN 15, and creatinine 1. Today's hemoglobin and hematocrit are 9.5 and 31.1. White count and platelet count are within normal limits. The patient underwent abdominal x-ray and the report is still pending. ASSESSMENT: 1. Clostridium difficile colitis. 2. Sinus tachycardia secondary to dehydration. 3. History of paroxysmal atrial fibrillation. 4. Depression. 5. Mild anemia. RECOMMENDATIONS: Continue current IV Flagyl 500 mg every 8 hours, Toprol-XL 50 mg once a day, oral vancomycin 500 mg every 6 hours. Resume intravenous hydration as there is no medical contraindication. Sukhdev Dave MD
[2019-01-06] MEDS: metroNIDAZOLE IV 500 mg/100 ml 500 MG/100 ML BAG IVPB SCH ×3 (06:14→21:39)
[2019-01-06] MEDS: DIFICID 200 MG PO SCH ×2 (06:15→18:04)
[2019-01-06] MEDS: (Novolin R) Insulin Human Regular 100 units/ml vial SC SCH ×3 (09:49→21:20)
--- NOTE | 2019-01-06 10:38 | CP.PCM.PN ---
Subjective - Date & Time of Evaluation Date of Evaluation: 01/06/19 Time of Evaluation: 10:35 - Subjective Subjective: pt still in icu no apetite has diareahea but no blood today no abd pain Objective - Vital Signs/Intake and Output Vital Signs (last 24 hours): Temp Pulse Resp BP Pulse Ox 98.0 F 107 H 24 137/68 95 01/06/19 04:55 01/06/19 04:55 01/06/19 04:55 01/06/19 04:55 01/06/19 04:55 Intake and Output: 01/06/19 01/06/19 06:59 18:59 Intake Total 940 Balance 940 - Medications Medications: Current Medications Famotidine (Pepcid) 20 mg PO DAILY [facility] Last Admin: 01/06/19 09:48 Dose: 20 mg Home Med (Patient's Own Medication) 1 tab PO Q12H [facility] Last Admin: 01/06/19 06:15 Dose: 1 tab Metronidazole (Flagyl) 500 mg in 100 mls @ 100 mls/hr IVPB Q8H [facility]; Protocol Last Admin: 01/06/19 06:14 Dose: 100 mls/hr Insulin Human Regular (Novolin R) 0 unit SC ACHS [facility]; Protocol Last Admin: 01/06/19 09:49 Dose: Not Given Metoprolol Succinate (Toprol Xl) 50 mg PO QPM [facility] Last Admin: 01/05/19 18:09 Dose: 50 mg Mirtazapine (Remeron) 30 mg PO HS [facility] Last Admin: 01/05/19 21:45 Dose: 30 mg Mirtazapine (Remeron) 15 mg PO HS [facility] Last Admin: 01/05/19 21:45 Dose: 15 mg Sodium Bicarbonate (Sodium Bicarbonate Tab) 1,300 mg PO BID [facility] Stop: 01/10/19 12:01 Last Admin: 01/06/19 09:48 Dose: 1,300 mg Venlafaxine HCl (Effexor) 150 mg PO DAILY [facility] Last Admin: 01/06/19 09:48 Dose: 150 mg - Labs Labs: 01/05/19 06:19 01/05/19 06:19 PT 22.6 SECONDS (9.7-12.2) H D 12/24/18 14:57 INR 2.1 D 12/24/18 14:57 APTT 33 SECONDS (21-34) 12/24/18 14:57 - Constitutional Appears: Non-toxic - Head Exam Head Exam: ATRAUMATIC - Eye Exam Eye Exam: Normal appearance Pupil Exam: NORMAL ACCOMODATION - ENT Exam ENT Exam: Mucous Membranes Moist - Neck Exam Neck Exam: Full ROM - Respiratory Exam Respiratory Exam: Clear to Ausculation Bilateral - Cardiovascular Exam Cardiovascular Exam: REGULAR RHYTHM - GI/Abdominal Exam GI & Abdominal Exam: Normal Bowel Sounds - Extremities Exam Extremities Exam: Full ROM - Back Exam Back Exam: NORMAL INSPECTION - Neurological Exam Neurological Exam: Awake - Psychiatric Exam Psychiatric exam: Depressed - Skin Skin Exam: Pallor Assessment and Plan - Assessment and Plan (Free Text) Assessment: ac c diff infection diarhea abd pain dm depression cont as ordered Plan: as ordered
--- NOTE | 2019-01-06 11:34 | RAD ---
Date of service: 01/06/2019 HISTORY: edema, fluid status COMPARISON: 12/30/2018 FINDINGS: LUNGS: The lungs are well inflated. There is interval improved aeration in the lungs. There is multifocal atelectasis in the lower lobes. PLEURA: No pleural effusions or pneumothorax. CARDIOVASCULAR: Mild cardiomegaly. There are aortic atherosclerotic calcifications present. OSSEOUS STRUCTURES: Within normal limits for the patient's age. VISUALIZED UPPER ABDOMEN: Normal. OTHER FINDINGS: None. IMPRESSION: Improving pulmonary venous congestion.
--- NOTE | 2019-01-06 13:48 | CP.PCM.PN ---
Subjective - Date & Time of Evaluation Date of Evaluation: 01/06/19 Time of Evaluation: 13:45 - Subjective Subjective: f/u diarrhea. Still loose stools. Less bleeding. No SZ, hematuria, hemoptysis, SOB, myalgia, arthralgia, wheezing Objective - Vital Signs/Intake and Output Vital Signs (last 24 hours): Temp Pulse Resp BP Pulse Ox 98.0 F 107 H 24 137/68 95 01/06/19 04:55 01/06/19 04:55 01/06/19 04:55 01/06/19 04:55 01/06/19 04:55 Intake and Output: 01/06/19 01/06/19 06:59 18:59 Intake Total 940 Balance 940 - Medications Medications: Current Medications Famotidine (Pepcid) 20 mg PO DAILY [facility] Last Admin: 01/06/19 09:48 Dose: 20 mg Home Med (Patient's Own Medication) 1 tab PO Q12H [facility] Last Admin: 01/06/19 06:15 Dose: 1 tab Metronidazole (Flagyl) 500 mg in 100 mls @ 100 mls/hr IVPB Q8H [facility]; Protocol Last Admin: 01/06/19 06:14 Dose: 100 mls/hr Insulin Human Regular (Novolin R) 0 unit SC ACHS [facility]; Protocol Last Admin: 01/06/19 09:49 Dose: Not Given Metoprolol Succinate (Toprol Xl) 50 mg PO QPM [facility] Last Admin: 01/05/19 18:09 Dose: 50 mg Mirtazapine (Remeron) 30 mg PO HS [facility] Last Admin: 01/05/19 21:45 Dose: 30 mg Mirtazapine (Remeron) 15 mg PO HS [facility] Last Admin: 01/05/19 21:45 Dose: 15 mg Sodium Bicarbonate (Sodium Bicarbonate Tab) 1,300 mg PO BID [facility] Stop: 01/10/19 12:01 Last Admin: 01/06/19 09:48 Dose: 1,300 mg Venlafaxine HCl (Effexor) 150 mg PO DAILY [facility] Last Admin: 01/06/19 09:48 Dose: 150 mg - Labs Labs: 01/05/19 06:19 01/05/19 06:19 PT 22.6 SECONDS (9.7-12.2) H D 12/24/18 14:57 INR 2.1 D 12/24/18 14:57 APTT 33 SECONDS (21-34) 12/24/18 14:57 - Constitutional Appears: Non-toxic - Respiratory Exam Respiratory Exam: Clear to Ausculation Bilateral - Cardiovascular Exam Cardiovascular Exam: RRR - GI/Abdominal Exam GI & Abdominal Exam: Soft, Tenderness, Normal Bowel Sounds. absent: Guarding, Mass, Rebound - Neurological Exam Neurological Exam: Alert, Awake. absent: Oriented x3 Assessment and Plan (1) Depression Status: Acute (2) Anemia Status: Acute (3) Abdominal pain Assessment & Plan: colitis Status: Acute (4) Colitis Assessment & Plan: c difficile. Had been im proving, and WBC- nl, but has had some RB and stil abdom pain and diarrhea. KUB- ok. Hb has been stable- so no significant bleeding. On vanco, dificid. Consider flex sig. Status: Acute (5) Sepsis Status: Acute (6) Renal insufficiency Status: Acute (7) Rectal bleed Assessment & Plan: Hb stable. Status: Acute
--- NOTE | 2019-01-06 14:02 | CP.PCM.PN ---
Subjective - Date & Time of Evaluation Date of Evaluation: 01/06/19 Time of Evaluation: 11:00 - Subjective Subjective: Nephrology Consultation Note: Assessment: stable Acute Kidney Injury (N17.9) likely due to ATN due to sepsis, IV contrast : resolved C.Diff colitis, hagma with respi compensation, hyponatremia hypocalcemia nagma Diabetic chronic Kidney Disease (E11.22) Hypertensive Chronic Kidney Disease (I12.9) Chronic Kidney Disease (N18.3) Stage 3 with ? mg proteinuria (R80.9) Anemia (D64.9) hx of dig toxicity, A fib, CVA, hypothyroidism left adrenal nodule Plan No acute need for renal replacement therapy at this time. renal function improv ing Hypertension control with meds as ordered. Maintain hemodynamics stable. Avoid hypotension. Patient not on ACEI/ARB due to recent LOUIE, can add if needed for elevated BP. increased toprol XL to 50 mg/d Monitor Input/Output, daily weights and renal function with basic metabolic panel supplement lytes as needed Increased sodium bicarb 1300 bid lasix prn can be given left adrenal nodule work up as outpt Dose meds/antibiotics for GFR >60. Glycemic control Further work up/management as per primary team Thanks for allowing me to participate in care of your patient. Will follow patient with you. Please call if any Qs. had d/w team Dr Raghu Solis Office: [phone] Chief Complaint; pain abdomen Reason for consult: Acute Kidney Injury HPI: Pt is a 73 F with hx of diabetes Mellitus ( years), hypertension (years) CKD 3 with baseline cr 1.2-1.4, hx of dig toxicity, A fib, CVA, hypothyroidism presented with complaints of pain abdomen and being managed for sepsis, colitis, transferred to ICU Denies OTC/herbal meds or NSAIDs Noted recent iodinated contrast exposure. Noted obvious episodes of low BP (99/61). pt not aware about kidney disease in past ROS: pt lying comfortably feels better. no urine complaints. denies pain abdomen not much communicative Physical Examination: General Appearance: comfortable, in no acute respiratory distress, co-operative . well appearing Vitals reviewed and noted as below Head; Atraumatic, normocephalic ENT: no ulcers no thrush. Tongue is midline. Oropharynx: no rash or ulcers. EYES: Pupils are equal, round and reactive to light accommodation. Eye muscles and extraocular movement intact. Sclera is anicteric. Neck; supple no lymphadenopathy, no thyromegaly or bruit Lungs: Normal respiratory rate/effort. Breath sounds bilateral basal crackles Heart: normal rate. s1s2 normal. No rub or gallop. Extremities: 1+ edema. No varicose veins Neurological: Patient is lying comfortably awake alert follow commands Skin: Warm and dry. Normal turgor. No rash. Palpitation: Normal elasticity for age Abdomen: Abdomen is soft. Bowel sounds +. There is upper abdominal tenderness, no guarding/rigidity no organomegaly Psych: deferred MSK: no joint tenderness or swelling. Digits and nails normal, no deformity : kidney or bladder not palpable Labs/imaging reviewed. Past medical history, past surgical history, family history, social history, allergy reviewed and noted as below Family hx: no hx of CKD. Rest non-contributory Objective - Vital Signs/Intake and Output Vital Signs (last 24 hours): Temp Pulse Resp BP Pulse Ox 98.0 F 107 H 24 137/68 95 01/06/19 04:55 01/06/19 04:55 01/06/19 04:55 01/06/19 04:55 01/06/19 04:55 Intake and Output: 01/06/19 01/06/19 06:59 18:59 Intake Total 940 Balance 940 - Medications Medications: Current Medications Famotidine (Pepcid) 20 mg PO DAILY [facility] Last Admin: 01/06/19 09:48 Dose: 20 mg Home Med (Patient's Own Medication) 1 tab PO Q12H [facility] Last Admin: 01/06/19 06:15 Dose: 1 tab Metronidazole (Flagyl) 500 mg in 100 mls @ 100 mls/hr IVPB Q8H [facility]; Protocol Last Admin: 01/06/19 06:14 Dose: 100 mls/hr Insulin Human Regular (Novolin R) 0 unit SC ACHS [facility]; Protocol Last Admin: 01/06/19 09:49 Dose: Not Given Metoprolol Succinate (Toprol Xl) 50 mg PO QPM [facility] Last Admin: 01/05/19 18:09 Dose: 50 mg Mirtazapine (Remeron) 30 mg PO HS [facility] Last Admin: 01/05/19 21:45 Dose: 30 mg Mirtazapine (Remeron) 15 mg PO HS [facility] Last Admin: 01/05/19 21:45 Dose: 15 mg Sodium Bicarbonate (Sodium Bicarbonate Tab) 1,300 mg PO BID [facility] Stop: 01/10/19 12:01 Last Admin: 01/06/19 09:48 Dose: 1,300 mg Venlafaxine HCl (Effexor) 150 mg PO DAILY [facility] Last Admin: 01/06/19 09:48 Dose: 150 mg - Labs Labs: 01/05/19 06:19 01/05/19 06:19 PT 22.6 SECONDS (9.7-12.2) H D 12/24/18 14:57 INR 2.1 D 12/24/18 14:57 APTT 33 SECONDS (21-34) 12/24/18 14:57
[2019-01-06] MEDS: Metoprolol Succinate 50 mg XL Tab PO SCH (18:03)
--- NOTE | 2019-01-06 18:04 | CP.PCM.PN ---
Subjective - Date & Time of Evaluation Date of Evaluation: 01/06/19 Time of Evaluation: 09:00 - Subjective Subjective: remains weak and bedridden in nad diarrhea+ bleeding less Objective - Vital Signs/Intake and Output Vital Signs (last 24 hours): Temp Pulse Resp BP Pulse Ox 97.9 F 111 H 24 139/71 95 01/06/19 12:00 01/06/19 15:00 01/06/19 15:00 01/06/19 13:00 01/06/19 04:55 Intake and Output: 01/06/19 01/06/19 06:59 18:59 Intake Total 940 Balance 940 - Medications Medications: Current Medications Famotidine (Pepcid) 20 mg PO DAILY [facility] Last Admin: 01/06/19 09:48 Dose: 20 mg Furosemide (Lasix) 20 mg IVP ONCE ONE Stop: 01/07/19 15:46 Home Med (Patient's Own Medication) 1 tab PO Q12H [facility] Last Admin: 01/06/19 06:15 Dose: 1 tab Metronidazole (Flagyl) 500 mg in 100 mls @ 100 mls/hr IVPB Q8H [facility]; Protocol Last Admin: 01/06/19 06:14 Dose: 100 mls/hr Insulin Human Regular (Novolin R) 0 unit SC ACHS [facility]; Protocol Last Admin: 01/06/19 09:49 Dose: Not Given Metoprolol Succinate (Toprol Xl) 50 mg PO QPM [facility] Last Admin: 01/05/19 18:09 Dose: 50 mg Mirtazapine (Remeron) 30 mg PO HS [facility] Last Admin: 01/05/19 21:45 Dose: 30 mg Mirtazapine (Remeron) 15 mg PO HS [facility] Last Admin: 01/05/19 21:45 Dose: 15 mg Sodium Bicarbonate (Sodium Bicarbonate Tab) 1,300 mg PO BID [facility] Stop: 01/10/19 12:01 Last Admin: 01/06/19 09:48 Dose: 1,300 mg Venlafaxine HCl (Effexor) 150 mg PO DAILY [facility] Last Admin: 01/06/19 09:48 Dose: 150 mg - Labs Labs: 01/05/19 06:19 01/05/19 06:19 PT 22.6 SECONDS (9.7-12.2) H D 12/24/18 14:57 INR 2.1 D 12/24/18 14:57 APTT 33 SECONDS (21-34) 12/24/18 14:57 - Constitutional Appears: Non-toxic, Cachectic, Chronically Ill - Head Exam Head Exam: NORMOCEPHALIC - Eye Exam Eye Exam: absent: Scleral icterus - ENT Exam ENT Exam: Mucous Membranes Dry - Neck Exam Neck Exam: absent: Lymphadenopathy - Respiratory Exam Respiratory Exam: Decreased Breath Sounds - Cardiovascular Exam Cardiovascular Exam: REGULAR RHYTHM - GI/Abdominal Exam GI & Abdominal Exam: Distended, Soft, Tenderness - Rectal Exam Rectal Exam: Deferred - Exam Exam: NORMAL INSPECTION - Extremities Exam Extremities Exam: absent: Pedal Edema - Back Exam Back Exam: absent: CVA tenderness (L), CVA tenderness (R) - Neurological Exam Neurological Exam: Altered Assessment and Plan (1) Abdominal pain Status: Acute (2) Colitis Status: Acute (3) Sepsis Status: Acute (4) Depressed Status: Acute (5) Renal insufficiency Status: Acute (6) Change in mental status Status: Chronic (7) Dementia Status: Chronic (8) LOUIE (acute kidney injury) Status: Resolved (9) Atrial fibrillation with RVR Status: Resolved (10) Congestive cardiac failure Status: Resolved (11) Renal insufficiency Status: Resolved (12) CVA (cerebral vascular accident) Status: Ruled-out (13) Seizures Status: Ruled-out - Assessment and Plan (Free Text) Assessment: cont IV and PO rx Dr Tuttle on consult Poor prognosis
--- NOTE | 2019-01-06 18:21 | PN ---
DATE: 01/06/2019 SUBJECTIVE: The patient still in ICU, not medically cleared. Mood-martin, the patient's mood is still fluctuating. Yesterday, she was doing better. Today, the patient seems more withdrawn, nonverbal, and refusing to eat, but took her meds. The patient's mood seems to be still unstable, but she has been compliant with her meds. PHYSICAL EXAMINATION: VITAL SIGNS: Temperature 98, pulse 107, blood pressure 137/68, respirations 24, and oxygen sats 95%. GENERAL: The patient is alert, but not very cooperative when seen in her room resting, refusing to eat, but not offering any complaints. SKIN: No diaphoresis. HEENT: No headache. No dizziness. NECK: Supple. RESPIRATORY: No dyspnea. CARDIOVASCULAR: No chest pain. GASTROINTESTINAL: The patient is refusing to eat. EXTREMITIES: Moving extremities. MUSCULOSKELETAL: Feels weak. NEUROLOGIC: The patient is alert, but uncooperative. MENTAL STATUS EXAMINATION: An elderly female, who looks her age, of [place] descent. Mood is dysphoric. The patient has poverty of speech today. Affect is restricted. Oriented x3. Thought process, coherent. Thought content, no psychosis. No suicidal or homicidal ideation. Attention and memory seem to be limited. Insight and judgment limited. Impulse control is fair. IMPRESSION: History of recurrent depression and anxiety, colitis. PLAN AND RECOMMENDATION: The patient is seen, meds reviewed. Continue present management. Continue treatment plan, urgent plan is to send patient for LE once she is medically stable. We will continue her present meds as ordered. Alexandre Kumari MD
--- NOTE | 2019-01-06 18:41 | PN ---
DATE: 01/06/2019 SUBJECTIVE: The patient is still in sinus tachycardia. She denies abdominal pain, but she is still having bloody diarrhea. PHYSICAL EXAMINATION: VITAL SIGNS: Blood pressure 137/68; heart rate 113, sinus tachycardia on the monitor; temperature 98; respirations 24. HEENT: Pale conjunctivae. CHEST: Clear. HEART: S1 and S2 regular. EXTREMITIES: Trace leg edema. LABORATORY DATA: Today's blood sugars 152 and 178 respectively. Today's chest x-ray revealed mild CHF. The official report has stated improving venous congestion. ASSESSMENT: 1. Clostridium difficile colitis. 2. Mild volume overload. 3. Paroxysmal atrial fibrillation. 4. Depression. 5. Mild anemia. RECOMMENDATIONS: Continue IV Flagyl 500 mg every 8 hours, continue Effexor at 150 mg once a day, Toprol XL at 50 mg once a day. I will administer one dose of intravenous Lasix at 20 mg now. The patient will be followed with psychiatrist, Dr. Kumari, for refusing to eat . Sukhdev Dave MD
[2019-01-06] MEDS: Dextrose 5%/0.45% NS 1,000 ML IV SCH (19:30)
[2019-01-07] MEDS: metroNIDAZOLE IV 500 mg/100 ml 500 MG/100 ML BAG IVPB SCH ×3 (05:30→21:25)
[2019-01-07] MEDS: Dextrose 5%/0.45% NS 1,000 ML IV SCH ×2 (06:00→11:50)
[2019-01-07] MEDS: DIFICID 200 MG PO SCH ×2 (06:03→17:15)
[2019-01-07 06:10] LABS: INR 1.3; PROTHROMBIN TIME 13.7 SECONDS (9.7-12.2)
[2019-01-07] MEDS: (Novolin R) Insulin Human Regular 100 units/ml vial SC SCH ×4 (07:58→21:28)
--- NOTE | 2019-01-07 09:45 | CP.PCM.PN ---
Subjective - Date & Time of Evaluation Date of Evaluation: 01/07/19 Time of Evaluation: 09:44 - Subjective Subjective: Diarrhea and abdominal pain much improved On Dificid/Flagyl KUB without megacolon/distension/obstruction Objective - Vital Signs/Intake and Output Vital Signs (last 24 hours): Temp Pulse Resp BP Pulse Ox 98.7 F 104 H 18 119/56 L 96 01/07/19 08:00 01/07/19 08:00 01/07/19 08:00 01/07/19 08:00 01/07/19 08:00 Intake and Output: 01/07/19 01/07/19 06:59 18:59 Intake Total 1060 250 Balance 1060 250 - Medications Medications: Current Medications Famotidine (Pepcid) 20 mg PO DAILY [facility] Last Admin: 01/07/19 09:25 Dose: 20 mg Furosemide (Lasix) 20 mg IVP ONCE ONE Stop: 01/07/19 15:46 Home Med (Patient's Own Medication) 1 tab PO Q12H [facility] Last Admin: 01/07/19 06:03 Dose: 1 tab Metronidazole (Flagyl) 500 mg in 100 mls @ 100 mls/hr IVPB Q8H [facility]; Protocol Last Admin: 01/07/19 05:30 Dose: 100 mls/hr Dextrose/Sodium Chloride (Dextrose 5%/0.45% Ns 1000 Ml) 1,000 mls @ 60 mls/hr IV .[id number] [facility] Last Admin: 01/07/19 06:00 Dose: 60 mls/hr Insulin Human Regular (Novolin R) 0 unit SC ACHS [facility]; Protocol Last Admin: 01/07/19 07:58 Dose: 1 units Metoprolol Succinate (Toprol Xl) 50 mg PO QPM [facility] Last Admin: 01/06/19 18:03 Dose: 50 mg Mirtazapine (Remeron) 30 mg PO HS [facility] Last Admin: 01/06/19 21:40 Dose: 30 mg Mirtazapine (Remeron) 15 mg PO HS [facility] Last Admin: 01/06/19 21:40 Dose: 15 mg Sodium Bicarbonate (Sodium Bicarbonate Tab) 1,300 mg PO BID [facility] Stop: 01/10/19 12:01 Last Admin: 01/07/19 09:25 Dose: 1,300 mg Venlafaxine HCl (Effexor) 150 mg PO DAILY [facility] Last Admin: 01/07/19 09:25 Dose: 150 mg - Labs Labs: 01/05/19 06:19 01/05/19 06:19 PT 13.7 SECONDS (9.7-12.2) H 01/07/19 05:59 INR 1.3 01/07/19 05:59 APTT 25 SECONDS (21-34) 01/07/19 05:59 - Constitutional Appears: Chronically Ill - Head Exam Head Exam: NORMOCEPHALIC - Eye Exam Eye Exam: absent: Scleral icterus - Respiratory Exam Respiratory Exam: NORMAL BREATHING PATTERN - Cardiovascular Exam Cardiovascular Exam: REGULAR RHYTHM - GI/Abdominal Exam GI & Abdominal Exam: Soft. absent: Distended, Tenderness Assessment and Plan (1) Clostridium difficile colitis Assessment & Plan: appears to be responding to Dificid Will monitor Status: Acute
--- NOTE | 2019-01-07 10:12 | CP.PCM.PN ---
Subjective - Date & Time of Evaluation Date of Evaluation: 01/07/19 Time of Evaluation: 10:10 - Subjective Subjective: still in icu today has one time mucoid stool diareah no blood no pain abd poor apetite but more comunication today and smiling Objective - Vital Signs/Intake and Output Vital Signs (last 24 hours): Temp Pulse Resp BP Pulse Ox 98.7 F 104 H 18 119/56 L 96 01/07/19 08:00 01/07/19 08:00 01/07/19 08:00 01/07/19 08:00 01/07/19 08:00 Intake and Output: 01/07/19 01/07/19 06:59 18:59 Intake Total 1060 250 Balance 1060 250 - Medications Medications: Current Medications Famotidine (Pepcid) 20 mg PO DAILY [facility] Last Admin: 01/07/19 09:25 Dose: 20 mg Furosemide (Lasix) 20 mg IVP ONCE ONE Stop: 01/07/19 15:46 Home Med (Patient's Own Medication) 1 tab PO Q12H [facility] Last Admin: 01/07/19 06:03 Dose: 1 tab Metronidazole (Flagyl) 500 mg in 100 mls @ 100 mls/hr IVPB Q8H [facility]; Protocol Last Admin: 01/07/19 05:30 Dose: 100 mls/hr Dextrose/Sodium Chloride (Dextrose 5%/0.45% Ns 1000 Ml) 1,000 mls @ 60 mls/hr IV .[id number] [facility] Last Admin: 01/07/19 06:00 Dose: 60 mls/hr Insulin Human Regular (Novolin R) 0 unit SC ACHS [facility]; Protocol Last Admin: 01/07/19 07:58 Dose: 1 units Metoprolol Succinate (Toprol Xl) 50 mg PO QPM [facility] Last Admin: 01/06/19 18:03 Dose: 50 mg Mirtazapine (Remeron) 30 mg PO HS [facility] Last Admin: 01/06/19 21:40 Dose: 30 mg Mirtazapine (Remeron) 15 mg PO HS [facility] Last Admin: 01/06/19 21:40 Dose: 15 mg Sodium Bicarbonate (Sodium Bicarbonate Tab) 1,300 mg PO BID [facility] Stop: 01/10/19 12:01 Last Admin: 01/07/19 09:25 Dose: 1,300 mg Venlafaxine HCl (Effexor) 150 mg PO DAILY [facility] Last Admin: 01/07/19 09:25 Dose: 150 mg - Labs Labs: 01/05/19 06:19 01/05/19 06:19 PT 13.7 SECONDS (9.7-12.2) H 01/07/19 05:59 INR 1.3 01/07/19 05:59 APTT 25 SECONDS (21-34) 01/07/19 05:59 - Constitutional Appears: Non-toxic - Head Exam Head Exam: ATRAUMATIC - Eye Exam Eye Exam: Normal appearance Pupil Exam: NORMAL ACCOMODATION - ENT Exam ENT Exam: Mucous Membranes Moist - Neck Exam Neck Exam: Normal Inspection - Respiratory Exam Respiratory Exam: Clear to Ausculation Bilateral - Cardiovascular Exam Cardiovascular Exam: REGULAR RHYTHM - GI/Abdominal Exam GI & Abdominal Exam: Normal Bowel Sounds - Exam Exam: NORMAL INSPECTION - Extremities Exam Extremities Exam: Normal Capillary Refill - Back Exam Back Exam: NORMAL INSPECTION - Neurological Exam Neurological Exam: Alert, Awake, Oriented x3 - Psychiatric Exam Psychiatric exam: Normal Affect - Skin Skin Exam: Pallor Assessment and Plan - Assessment and Plan (Free Text) Assessment: c diff infection less abd pain dm depression poor apetite Plan: cont as ordered
--- NOTE | 2019-01-07 14:32 | CP.PCM.PN ---
Subjective - Date & Time of Evaluation Date of Evaluation: 01/07/19 Time of Evaluation: 14:31 - Subjective Subjective: Nephrology Consultation Note: Assessment: stable Acute Kidney Injury (N17.9) likely due to ATN due to sepsis, IV contrast : resolved C.Diff colitis, hagma with respi compensation, hyponatremia hypocalcemia nagma Diabetic chronic Kidney Disease (E11.22) Hypertensive Chronic Kidney Disease (I12.9) Chronic Kidney Disease (N18.3) Stage 3 with ? mg proteinuria (R80.9) Anemia (D64.9) hx of dig toxicity, A fib, CVA, hypothyroidism left adrenal nodule Plan check BMP in AM No acute need for renal replacement therapy at this time. renal function improving Hypertension control with meds as ordered. Maintain hemodynamics stable. Avoid h ypotension. Patient not on ACEI/ARB due to recent LOUIE, can add if needed for elevated BP. increased toprol XL to 50 mg/d Monitor Input/Output, daily weights and renal function with basic metabolic valenzuela el supplement lytes as needed Increased sodium bicarb 1300 bid lasix prn can be given left adrenal nodule work up as outpt Dose meds/antibiotics for GFR >60. Glycemic control Further work up/management as per primary team Thanks for allowing me to participate in care of your patient. Will follow patient with you. Please call if any Qs. had d/w team Dr Raghu Solis Office: [phone] Chief Complaint; pain abdomen Reason for consult: Acute Kidney Injury HPI: Pt is a 73 F with hx of diabetes Mellitus ( years), hypertension (years) CKD 3 with baseline cr 1.2-1.4, hx of dig toxicity, A fib, CVA, hypothyroidism presented with complaints of pain abdomen and being managed for sepsis, colitis, transferred to ICU Denies OTC/herbal meds or NSAIDs Noted recent iodinated contrast exposure. Noted obvious episodes of low BP (99/61). pt not aware about kidney disease in past ROS: pt lying comfortably feels better. no urine complaints. denies pain abdomen more communicative Physical Examination: General Appearance: comfortable, in no acute respiratory distress, co-operative . well appearing Vitals reviewed and noted as below Head; Atraumatic, normocephalic ENT: no ulcers no thrush. Tongue is midline. Oropharynx: no rash or ulcers. EYES: Pupils are equal, round and reactive to light accommodation. Eye muscles and extraocular movement intact. Sclera is anicteric. Neck; supple no lymphadenopathy, no thyromegaly or bruit Lungs: Normal respiratory rate/effort. Breath sounds bilateral basal crackles Heart: normal rate. s1s2 normal. No rub or gallop. Extremities: 1+ edema. No varicose veins Neurological: Patient is lying comfortably awake alert follow commands Skin: Warm and dry. Normal turgor. No rash. Palpitation: Normal elasticity for age Abdomen: Abdomen is soft. Bowel sounds +. There is upper abdominal tenderness, no guarding/rigidity no organomegaly Psych: deferred MSK: no joint tenderness or swelling. Digits and nails normal, no deformity : kidney or bladder not palpable Labs/imaging reviewed. Past medical history, past surgical history, family history, social history, allergy reviewed and noted as below Family hx: no hx of CKD. Rest non-contributory Objective - Vital Signs/Intake and Output Vital Signs (last 24 hours): Temp Pulse Resp BP Pulse Ox 98.2 F 103 H 22 117/60 97 01/07/19 12:00 01/07/19 12:00 01/07/19 12:00 01/07/19 12:00 01/07/19 12:00 Intake and Output: 01/07/19 01/07/19 06:59 18:59 Intake Total 1060 400 Output Total 3 Balance 1060 397 - Medications Medications: Current Medications Famotidine (Pepcid) 20 mg PO DAILY [facility] Last Admin: 01/07/19 09:25 Dose: 20 mg Furosemide (Lasix) 20 mg IVP ONCE ONE Stop: 01/07/19 15:46 Home Med (Patient's Own Medication) 1 tab PO Q12H [facility] Last Admin: 01/07/19 06:03 Dose: 1 tab Metronidazole (Flagyl) 500 mg in 100 mls @ 100 mls/hr IVPB Q8H [facility]; Protocol Last Admin: 01/07/19 13:39 Dose: 100 mls/hr Dextrose/Sodium Chloride (Dextrose 5%/0.45% Ns 1000 Ml) 1,000 mls @ 60 mls/hr IV .[id number] [facility] Last Admin: 01/07/19 11:50 Dose: Not Given Insulin Human Regular (Novolin R) 0 unit SC ACHS [facility]; Protocol Last Admin: 01/07/19 11:50 Dose: 1 units Metoprolol Succinate (Toprol Xl) 50 mg PO QPM [facility] Last Admin: 01/06/19 18:03 Dose: 50 mg Mirtazapine (Remeron) 30 mg PO HS [facility] Last Admin: 01/06/19 21:40 Dose: 30 mg Mirtazapine (Remeron) 15 mg PO HS [facility] Last Admin: 01/06/19 21:40 Dose: 15 mg Sodium Bicarbonate (Sodium Bicarbonate Tab) 1,300 mg PO BID [facility] Stop: 01/10/19 12:01 Last Admin: 01/07/19 09:25 Dose: 1,300 mg Venlafaxine HCl (Effexor) 150 mg PO DAILY [facility] Last Admin: 01/07/19 09:25 Dose: 150 mg - Labs Labs: 01/05/19 06:19 01/05/19 06:19 PT 13.7 SECONDS (9.7-12.2) H 01/07/19 05:59 INR 1.3 01/07/19 05:59 APTT 25 SECONDS (21-34) 01/07/19 05:59
[2019-01-07] MEDS: Metoprolol Succinate 50 mg XL Tab PO SCH (17:15)
--- NOTE | 2019-01-07 17:40 | PN ---
DATE: 01/07/2019 SUBJECTIVE: The patient is still experiencing diarrhea. She denies any dizziness or chest pain. PHYSICAL EXAMINATION: VITAL SIGNS: Blood pressure 117/60, heart rate 103, temperature 98.2, respirations 22, the rhythm is sinus tachycardia on the monitor with occasional PVCs. HEENT: Pale conjunctiva. CHEST: Clear. HEART: S1 and S2 regular. EXTREMITIES: 1+ pitting edema. LABORATORY DATA: Yesterday's blood sugars are 152, 178, 147 and 143 respectively. Apparently, the patient refused Accu-Check today. ASSESSMENT: 1. Clostridium difficile colitis. 2. Uncontrolled diabetes mellitus. 3. Physiologic sinus tachycardia. 4. History of paroxysmal atrial fibrillation. 5. Hypocalcemia. RECOMMENDATIONS: Continue current IV Flagyl 500 mg every 8 hours, Toprol XL at 50 mg daily, Pepcid 20 mg once a day. The patient did receive a single dose of 20 mg of IV Lasix today. Case was discussed with two of the patient's brothers at bedside. Sukhdev Dave MD
[2019-01-07] MEDS ORDERED: Aluminum Hydroxide/Magnesium Hydroxide Susp (30 mL) PO ONE (18:30)
[2019-01-08] MEDS: Dextrose 5%/0.45% NS 1,000 ML IV SCH ×3 (03:03→21:55)
[2019-01-08 06:30] LABS: HEMOGLOBIN 9.9 g/dL (11.0-16.0); MEAN CELL VOLUME 83.4 fL (81.0-99.0); MEAN CORPUSCULAR HEMOGLOBIN 26.4 pg (27.0-31.0); MEAN CORPUSCULAR HGB CONC 31.6 g/dL (33.0-37.0); MEAN PLATELET VOLUME 8.4 fL (7.2-11.7); RBC 3.75 Mil/uL (3.80-5.20); RED CELL DISTRIBUTION WIDTH 21.5 % (11.5-14.5); WHITE BLOOD COUNT 5.5 K/uL (4.8-10.8)
[2019-01-08 06:36] LABS: BLOOD UREA NITROGEN 9 mg/dL (7-17); CALCIUM 7.7 mg/dl (8.6-10.4); GFR NON-AFRICAN AMERICAN 54
[2019-01-08] MEDS: DIFICID 200 MG PO SCH ×2 (06:55→17:46)
[2019-01-08] MEDS: metroNIDAZOLE IV 500 mg/100 ml 500 MG/100 ML BAG IVPB SCH ×3 (06:56→21:51)
[2019-01-08] MEDS: (Novolin R) Insulin Human Regular 100 units/ml vial SC SCH ×4 (07:49→21:49)
[2019-01-08] MEDS ORDERED: Potassium Chloride 20 mEq ER Tab PO SCH (10:30)
--- NOTE | 2019-01-08 10:46 | CP.PCM.PN ---
Subjective - Date & Time of Evaluation Date of Evaluation: 01/08/19 Time of Evaluation: 10:44 - Subjective Subjective: pt seen today in bed closing her eyes still has diarehea today no blood Objective - Vital Signs/Intake and Output Vital Signs (last 24 hours): Temp Pulse Resp BP Pulse Ox 98.4 F 105 H 24 142/77 97 01/08/19 08:00 01/08/19 08:00 01/08/19 08:00 01/08/19 08:00 01/08/19 08:00 Intake and Output: 01/08/19 01/08/19 06:59 18:59 Intake Total 580 380 Output Total 4 Balance 576 380 - Medications Medications: Current Medications Famotidine (Pepcid) 20 mg PO DAILY [facility] Last Admin: 01/08/19 09:53 Dose: 20 mg Home Med (Patient's Own Medication) 1 tab PO Q12H [facility] Last Admin: 01/08/19 06:55 Dose: 1 tab Metronidazole (Flagyl) 500 mg in 100 mls @ 100 mls/hr IVPB Q8H [facility]; Protocol Last Admin: 01/08/19 06:56 Dose: 100 mls/hr Dextrose/Sodium Chloride (Dextrose 5%/0.45% Ns 1000 Ml) 1,000 mls @ 60 mls/hr IV .[id number] [facility] Last Admin: 01/08/19 03:03 Dose: 60 mls/hr Insulin Human Regular (Novolin R) 0 unit SC ACHS [facility]; Protocol Last Admin: 01/08/19 07:49 Dose: Not Given Metoprolol Succinate (Toprol Xl) 50 mg PO QPM [facility] Last Admin: 01/07/19 17:15 Dose: 50 mg Mirtazapine (Remeron) 30 mg PO HS [facility] Last Admin: 01/07/19 21:26 Dose: 30 mg Mirtazapine (Remeron) 15 mg PO HS [facility] Last Admin: 01/07/19 21:26 Dose: 15 mg Sodium Bicarbonate (Sodium Bicarbonate Tab) 650 mg PO BID [facility] Stop: 01/10/19 12:01 Venlafaxine HCl (Effexor) 150 mg PO DAILY [facility] Last Admin: 01/08/19 09:52 Dose: 150 mg - Labs Labs: 01/08/19 06:12 01/08/19 06:12 PT 13.7 SECONDS (9.7-12.2) H 01/07/19 05:59 INR 1.3 01/07/19 05:59 APTT 25 SECONDS (21-34) 01/07/19 05:59 - Constitutional Appears: Non-toxic - Head Exam Head Exam: ATRAUMATIC - Eye Exam Eye Exam: EOMI, Normal appearance - ENT Exam ENT Exam: Mucous Membranes Moist - Neck Exam Neck Exam: Normal Inspection - Respiratory Exam Respiratory Exam: NORMAL BREATHING PATTERN - Cardiovascular Exam Cardiovascular Exam: REGULAR RHYTHM - GI/Abdominal Exam GI & Abdominal Exam: Normal Bowel Sounds - Exam Exam: NORMAL INSPECTION - Extremities Exam Extremities Exam: Normal Inspection - Back Exam Back Exam: NORMAL INSPECTION - Neurological Exam Neurological Exam: Alert, Oriented x3 - Psychiatric Exam Psychiatric exam: Normal Affect - Skin Skin Exam: Normal Color Assessment and Plan - Assessment and Plan (Free Text) Assessment: ac c difficele infection aneamea dm depression Plan: cont as ordererd
--- NOTE | 2019-01-08 11:37 | CP.PCM.PN ---
Subjective - Date & Time of Evaluation Date of Evaluation: 01/08/19 Time of Evaluation: 11:35 - Subjective Subjective: Diarrhea improved yesterday but now has returned Due to persistence of diarrhea, colonoscopy is recommended. i doubt pt will tolerate full bowel prep but will attempt with limited prep Objective - Vital Signs/Intake and Output Vital Signs (last 24 hours): Temp Pulse Resp BP Pulse Ox 98.4 F 105 H 24 142/77 97 01/08/19 08:00 01/08/19 08:00 01/08/19 08:00 01/08/19 08:00 01/08/19 08:00 Intake and Output: 01/08/19 01/08/19 06:59 18:59 Intake Total 580 380 Output Total 4 Balance 576 380 - Medications Medications: Current Medications Famotidine (Pepcid) 20 mg PO DAILY [facility] Last Admin: 01/08/19 09:53 Dose: 20 mg Home Med (Patient's Own Medication) 1 tab PO Q12H [facility] Last Admin: 01/08/19 06:55 Dose: 1 tab Metronidazole (Flagyl) 500 mg in 100 mls @ 100 mls/hr IVPB Q8H [facility]; Protocol Last Admin: 01/08/19 06:56 Dose: 100 mls/hr Dextrose/Sodium Chloride (Dextrose 5%/0.45% Ns 1000 Ml) 1,000 mls @ 60 mls/hr IV .[id number] [facility] Last Admin: 01/08/19 03:03 Dose: 60 mls/hr Insulin Human Regular (Novolin R) 0 unit SC ACHS [facility]; Protocol Last Admin: 01/08/19 07:49 Dose: Not Given Metoprolol Succinate (Toprol Xl) 50 mg PO QPM [facility] Last Admin: 01/07/19 17:15 Dose: 50 mg Mirtazapine (Remeron) 30 mg PO HS [facility] Last Admin: 01/07/19 21:26 Dose: 30 mg Mirtazapine (Remeron) 15 mg PO HS [facility] Last Admin: 01/07/19 21:26 Dose: 15 mg Sodium Bicarbonate (Sodium Bicarbonate Tab) 650 mg PO BID [facility] Stop: 01/10/19 12:01 Venlafaxine HCl (Effexor) 150 mg PO DAILY [facility] Last Admin: 01/08/19 09:52 Dose: 150 mg - Labs Labs: 01/08/19 06:12 01/08/19 06:12 PT 13.7 SECONDS (9.7-12.2) H 01/07/19 05:59 INR 1.3 01/07/19 05:59 APTT 25 SECONDS (21-34) 01/07/19 05:59 - Constitutional Appears: Chronically Ill - Respiratory Exam Respiratory Exam: NORMAL BREATHING PATTERN - Cardiovascular Exam Cardiovascular Exam: REGULAR RHYTHM - GI/Abdominal Exam GI & Abdominal Exam: Soft. absent: Tenderness Assessment and Plan (1) Clostridium difficile colitis Assessment & Plan: Persistent diarrhea despite Vancomycin, Flagyl, Dificid recommend Colonoscopy , hopefully consent can be obtained and procedure scheduled for tomorrow D/W RN Status: Acute
--- NOTE | 2019-01-08 13:55 | CP.PCM.PN ---
Subjective - Date & Time of Evaluation Date of Evaluation: 01/08/19 Time of Evaluation: 13:54 - Subjective Subjective: Nephrology Consultation Note: Assessment: stable Acute Kidney Injury (N17.9) likely due to ATN due to sepsis, IV contrast : resolved C.Diff colitis, hagma with respi compensation, hyponatremia hypocalcemia nagma Diabetic chronic Kidney Disease (E11.22) Hypertensive Chronic Kidney Disease (I12.9) Chronic Kidney Disease (N18.3) Stage 3 with ? mg proteinuria (R80.9) Anemia (D64.9) hx of dig toxicity, A fib, CVA, hypothyroidism left adrenal nodule Plan check BMP in AM No acute need for renal replacement therapy at this time. renal function improving Hypertension control with meds as ordered. Maintain hemodynamics stable. Avoid h ypotension. Patient not on ACEI/ARB due to recent LOUIE, can add if needed for elevated BP. increased toprol XL to 50 mg/d Monitor Input/Output, daily weights and renal function with basic metabolic valenzuela el supplement lytes as needed sodium bicarb 650 bid lowered lasix prn can be given left adrenal nodule work up as outpt Dose meds/antibiotics for GFR >60. Glycemic control Further work up/management as per primary team Thanks for allowing me to participate in care of your patient. Will follow warner ferreira with you. Please call if any Qs. had d/w team Dr Raghu Solis Office: [phone] Chief Complaint; pain abdomen Reason for consult: Acute Kidney Injury HPI: Pt is a 73 F with hx of diabetes Mellitus ( years), hypertension (years) CKD 3 with baseline cr 1.2-1.4, hx of dig toxicity, A fib, CVA, hypothyroidism presented with complaints of pain abdomen and being managed for sepsis, colitis, transferred to ICU Denies OTC/herbal meds or NSAIDs Noted recent iodinated contrast exposure. Noted obvious episodes of low BP (99/61). pt not aware about kidney disease in past ROS: pt lying comfortably feels better. no urine complaints. denies pain abdomen not much communicative Physical Examination: General Appearance: comfortable, in no acute respiratory distress, co-operative . well appearing Vitals reviewed and noted as below Head; Atraumatic, normocephalic ENT: no ulcers no thrush. Tongue is midline. Oropharynx: no rash or ulcers. EYES: Pupils are equal, round and reactive to light accommodation. Eye muscles and extraocular movement intact. Sclera is anicteric. Neck; supple no lymphadenopathy, no thyromegaly or bruit Lungs: Normal respiratory rate/effort. Breath sounds bilateral basal crackles Heart: normal rate. s1s2 normal. No rub or gallop. Extremities: 1+ edema. No varicose veins Neurological: Patient is lying comfortably awake alert follow commands Skin: Warm and dry. Normal turgor. No rash. Palpitation: Normal elasticity for a ge Abdomen: Abdomen is soft. Bowel sounds +. There is upper abdominal tenderness, no guarding/rigidity no organomegaly Psych: deferred MSK: no joint tenderness or swelling. Digits and nails normal, no deformity : kidney or bladder not palpable Labs/imaging reviewed. Past medical history, past surgical history, family history, social history, allergy reviewed and noted as below Family hx: no hx of CKD. Rest non-contributory Objective - Vital Signs/Intake and Output Vital Signs (last 24 hours): Temp Pulse Resp BP Pulse Ox 97.8 F 104 H 26 H 140/80 96 01/08/19 12:00 01/08/19 12:00 01/08/19 12:00 01/08/19 12:00 01/08/19 12:00 Intake and Output: 01/08/19 01/08/19 06:59 18:59 Intake Total 580 740 Output Total 4 0 Balance 576 740 - Medications Medications: Current Medications Bisacodyl (Dulcolax) 10 mg PO ONCE ONE Stop: 01/08/19 17:01 Famotidine (Pepcid) 20 mg PO DAILY [facility] Last Admin: 01/08/19 09:53 Dose: 20 mg Home Med (Patient's Own Medication) 1 tab PO Q12H [facility] Last Admin: 01/08/19 06:55 Dose: 1 tab Metronidazole (Flagyl) 500 mg in 100 mls @ 100 mls/hr IVPB Q8H [facility]; Protocol Last Admin: 01/08/19 06:56 Dose: 100 mls/hr Dextrose/Sodium Chloride (Dextrose 5%/0.45% Ns 1000 Ml) 1,000 mls @ 60 mls/hr IV .[id number] [facility] Last Admin: 01/08/19 03:03 Dose: 60 mls/hr Insulin Human Regular (Novolin R) 0 unit SC ACHS [facility]; Protocol Last Admin: 01/08/19 11:45 Dose: 1 units Magnesium Citrate (Citrate Of Mag) 300 ml PO ONCE ONE Stop: 01/09/19 09:01 Metoprolol Succinate (Toprol Xl) 50 mg PO QPM [facility] Last Admin: 01/07/19 17:15 Dose: 50 mg Mirtazapine (Remeron) 30 mg PO HS [facility] Last Admin: 01/07/19 21:26 Dose: 30 mg Mirtazapine (Remeron) 15 mg PO HS [facility] Last Admin: 01/07/19 21:26 Dose: 15 mg Polyethylene Glycol/Electrolytes (Golytely) 2,000 ml PO ONCE ONE Stop: 01/08/19 18:01 Sodium Bicarbonate (Sodium Bicarbonate Tab) 650 mg PO BID [facility] Stop: 01/10/19 12:01 Venlafaxine HCl (Effexor) 150 mg PO DAILY [facility] Last Admin: 01/08/19 09:52 Dose: 150 mg - Labs Labs: 01/08/19 06:12 01/08/19 06:12 PT 13.7 SECONDS (9.7-12.2) H 01/07/19 05:59 INR 1.3 01/07/19 05:59 APTT 25 SECONDS (21-34) 01/07/19 05:59
--- NOTE | 2019-01-08 14:40 | CP.PCM.PN ---
Subjective - Date & Time of Evaluation Date of Evaluation: 01/08/19 Time of Evaluation: 08:00 - Subjective Subjective: still with diarrhea no fever less bleeding for colonoscopy in am cont difcid Objective - Vital Signs/Intake and Output Vital Signs (last 24 hours): Temp Pulse Resp BP Pulse Ox 97.8 F 104 H 26 H 140/80 96 01/08/19 12:00 01/08/19 12:00 01/08/19 12:00 01/08/19 12:00 01/08/19 12:00 Intake and Output: 01/08/19 01/08/19 06:59 18:59 Intake Total 580 1050 Output Total 4 0 Balance 576 1050 - Medications Medications: Current Medications Bisacodyl (Dulcolax) 10 mg PO ONCE ONE Stop: 01/08/19 17:01 Famotidine (Pepcid) 20 mg PO DAILY [facility] Last Admin: 01/08/19 09:53 Dose: 20 mg Home Med (Patient's Own Medication) 1 tab PO Q12H [facility] Last Admin: 01/08/19 06:55 Dose: 1 tab Metronidazole (Flagyl) 500 mg in 100 mls @ 100 mls/hr IVPB Q8H [facility]; Protocol Last Admin: 01/08/19 14:36 Dose: 100 mls/hr Dextrose/Sodium Chloride (Dextrose 5%/0.45% Ns 1000 Ml) 1,000 mls @ 60 mls/hr IV .[id number] [facility] Last Admin: 01/08/19 03:03 Dose: 60 mls/hr Insulin Human Regular (Novolin R) 0 unit SC ACHS [facility]; Protocol Last Admin: 01/08/19 11:45 Dose: 1 units Magnesium Citrate (Citrate Of Mag) 300 ml PO ONCE ONE Stop: 01/09/19 09:01 Metoprolol Succinate (Toprol Xl) 50 mg PO QPM [facility] Last Admin: 01/07/19 17:15 Dose: 50 mg Mirtazapine (Remeron) 30 mg PO HS [facility] Last Admin: 01/07/19 21:26 Dose: 30 mg Mirtazapine (Remeron) 15 mg PO HS [facility] Last Admin: 01/07/19 21:26 Dose: 15 mg Polyethylene Glycol/Electrolytes (Golytely) 2,000 ml PO ONCE ONE Stop: 01/08/19 18:01 Sodium Bicarbonate (Sodium Bicarbonate Tab) 650 mg PO BID [facility] Stop: 01/10/19 12:01 Venlafaxine HCl (Effexor) 150 mg PO DAILY [facility] Last Admin: 01/08/19 09:52 Dose: 150 mg - Labs Labs: 01/08/19 06:12 01/08/19 06:12 PT 13.7 SECONDS (9.7-12.2) H 01/07/19 05:59 INR 1.3 01/07/19 05:59 APTT 25 SECONDS (21-34) 01/07/19 05:59 - Constitutional Appears: Confused, Cachectic, Chronically Ill - Head Exam Head Exam: NORMOCEPHALIC - Eye Exam Eye Exam: absent: Scleral icterus - ENT Exam ENT Exam: Mucous Membranes Dry - Neck Exam Neck Exam: absent: Lymphadenopathy, Thyromegaly - Respiratory Exam Respiratory Exam: Decreased Breath Sounds - Cardiovascular Exam Cardiovascular Exam: REGULAR RHYTHM - GI/Abdominal Exam GI & Abdominal Exam: Distended, Soft - Rectal Exam Rectal Exam: Deferred - Exam Exam: NORMAL INSPECTION - Extremities Exam Extremities Exam: absent: Pedal Edema - Back Exam Back Exam: absent: CVA tenderness (L), CVA tenderness (R) - Neurological Exam Neurological Exam: Alert, Altered, Awake Assessment and Plan (1) Abdominal pain Status: Acute (2) Colitis Status: Acute (3) Sepsis Status: Acute (4) Depressed Status: Acute (5) Renal insufficiency Status: Acute (6) Change in mental status Status: Chronic (7) Dementia Status: Chronic (8) LOUIE (acute kidney injury) Status: Resolved (9) Atrial fibrillation with RVR Status: Resolved (10) Congestive cardiac failure Status: Resolved (11) Renal insufficiency Status: Resolved (12) CVA (cerebral vascular accident) Status: Ruled-out (13) Seizures Status: Ruled-out - Assessment and Plan (Free Text) Assessment: for colonoscopy in am cont PO difcid
[2019-01-08] MEDS ORDERED: Bisacodyl 5mg EC Tab PO ONE (17:00)
[2019-01-08] MEDS: Metoprolol Succinate 50 mg XL Tab PO SCH (17:46)
[2019-01-08] MEDS ORDERED: Peg-Electrolyte Oral Soln 4L (Golytely) PO ONE (18:00)
--- NOTE | 2019-01-08 22:41 | PN ---
DATE: 01/08/2019 SUBJECTIVE: The patient is still experiencing diarrhea with brownish stool. No bloody diarrhea. She is in sinus tachycardia, but denies any chest pain. OBJECTIVE: VITAL SIGNS: Blood pressure 106/62, heart rate 104, temperature 98.6, respirations 24. HEENT: Normocephalic. CHEST: Clear. HEART: S1, S2, regular. EXTREMITIES: Trace leg edema. LABORATORY DATA: Hemoglobin and hematocrit 9.9 and 31.3. White count and platelet count are within normal limits. Today's SMA-7, sodium 137, potassium 3.4, chloride 110, CO2 24, glucose 124, BUN 9, creatinine 1. Calcium is 7.7. ASSESSMENT: 1. Clostridium difficile diarrhea. 2. Hypokalemia. 3. Hypocalcemia. 4. Physiologic sinus bradycardia. 5. History of paroxysmal atrial fibrillation. RECOMMENDATIONS: Continue current IV Flagyl, continue Pepcid 20 mg orally once a day, Toprol XL 50 mg once a day. The patient did receive 40 mEq of oral potassium chloride supplement today. Obtain a followup BMP in a.m. and if normal, the patient can undergo colonoscopy from the cardiac point of view. Sukhdev Dave MD
[2019-01-09] MEDS: DIFICID 200 MG PO SCH ×2 (05:14→17:40)
[2019-01-09] MEDS: metroNIDAZOLE IV 500 mg/100 ml 500 MG/100 ML BAG IVPB SCH ×3 (05:14→21:35)
[2019-01-09] MEDS: (Novolin R) Insulin Human Regular 100 units/ml vial SC SCH ×4 (08:02→21:37)
[2019-01-09] MEDS ORDERED: Magnesium Citrate Oral SOL (300 ml) PO ONE (09:00)
--- NOTE | 2019-01-09 10:49 | CP.PCM.PN ---
Subjective - Date & Time of Evaluation Date of Evaluation: 01/09/19 Time of Evaluation: 10:48 - Subjective Subjective: Nephrology Consultation Note: Assessment: stable Acute Kidney Injury (N17.9) likely due to ATN due to sepsis, IV contrast : resolved C.Diff colitis, hagma with respi compensation, hyponatremia hypocalcemia nagma Diabetic chronic Kidney Disease (E11.22) Hypertensive Chronic Kidney Disease (I12.9) Chronic Kidney Disease (N18.3) Stage 3 with ? mg proteinuria (R80.9) Anemia (D64.9) hx of dig toxicity, A fib, CVA, hypothyroidism left adrenal nodule Plan check BMP in AM No acute need for renal replacement therapy at this time. renal function improving Hypertension control with meds as ordered. Maintain hemodynamics stable. Avoid h ypotension. Patient not on ACEI/ARB due to recent LOUIE, can add if needed for elevated BP. increased toprol XL to 50 mg/d Monitor Input/Output, daily weights and renal function with basic metabolic valenzuela el supplement lytes as needed sodium bicarb 650 bid lowered lasix prn can be given left adrenal nodule work up as outpt Dose meds/antibiotics for GFR >60. Glycemic control Further work up/management as per primary team Thanks for allowing me to participate in care of your patient. Will follow warner ferreira with you. Please call if any Qs. had d/w team Dr Raghu Solis Office: [phone] Chief Complaint; pain abdomen Reason for consult: Acute Kidney Injury HPI: Pt is a 73 F with hx of diabetes Mellitus ( years), hypertension (years) CKD 3 with baseline cr 1.2-1.4, hx of dig toxicity, A fib, CVA, hypothyroidism presented with complaints of pain abdomen and being managed for sepsis, colitis, transferred to ICU Denies OTC/herbal meds or NSAIDs Noted recent iodinated contrast exposure. Noted obvious episodes of low BP (99/61). pt not aware about kidney disease in past ROS: pt lying comfortably not much communicative Physical Examination: General Appearance: comfortable, in no acute respiratory distress, co-operative . well appearing Vitals reviewed and noted as below Head; Atraumatic, normocephalic ENT: no ulcers no thrush. Tongue is midline. Oropharynx: no rash or ulcers. EYES: Pupils are equal, round and reactive to light accommodation. Eye muscles and extraocular movement intact. Sclera is anicteric. Neck; supple no lymphadenopathy, no thyromegaly or bruit Lungs: Normal respiratory rate/effort. Breath sounds bilateral clerarer Heart: normal rate. s1s2 normal. No rub or gallop. Extremities: 1+ edema. No varicose veins Neurological: Patient is lying comfortably awake alert follow commands Skin: Warm and dry. Normal turgor. No rash. Palpitation: Normal elasticity for age Abdomen: Abdomen is soft. Bowel sounds +. There is upper abdominal tenderness, no guarding/rigidity no organomegaly Psych: deferred MSK: no joint tenderness or swelling. Digits and nails normal, no deformity : kidney or bladder not palpable Labs/imaging reviewed. Past medical history, past surgical history, family history, social history, allergy reviewed and noted as below Family hx: no hx of CKD. Rest non-contributory Objective - Vital Signs/Intake and Output Vital Signs (last 24 hours): Temp Pulse Resp BP Pulse Ox 98.7 F 101 H 23 149/75 97 01/09/19 08:00 01/09/19 08:00 01/09/19 08:00 01/09/19 08:00 01/09/19 08:00 Intake and Output: 01/09/19 01/09/19 06:59 18:59 Intake Total 1030 210 Output Total 4 Balance 1026 210 - Medications Medications: Current Medications Famotidine (Pepcid) 20 mg PO DAILY [facility] Last Admin: 01/08/19 09:53 Dose: 20 mg Home Med (Patient's Own Medication) 1 tab PO Q12H [facility] Last Admin: 01/09/19 05:14 Dose: 1 tab Metronidazole (Flagyl) 500 mg in 100 mls @ 100 mls/hr IVPB Q8H [facility]; Protocol Last Admin: 01/09/19 05:14 Dose: 100 mls/hr Dextrose/Sodium Chloride (Dextrose 5%/0.45% Ns 1000 Ml) 1,000 mls @ 60 mls/hr IV .[id number] [facility] Last Admin: 01/08/19 21:55 Dose: 60 mls/hr Insulin Human Regular (Novolin R) 0 unit SC ACHS [facility]; Protocol Last Admin: 01/09/19 08:02 Dose: Not Given Metoprolol Succinate (Toprol Xl) 50 mg PO QPM [facility] Last Admin: 01/08/19 17:46 Dose: 50 mg Mirtazapine (Remeron) 30 mg PO HS [facility] Last Admin: 01/08/19 21:58 Dose: 30 mg Sodium Bicarbonate (Sodium Bicarbonate Tab) 650 mg PO BID [facility] Stop: 01/10/19 12:01 Last Admin: 01/09/19 10:20 Dose: 650 mg Venlafaxine HCl (Effexor) 150 mg PO DAILY [facility] Last Admin: 01/08/19 09:52 Dose: 150 mg - Labs Labs: 01/08/19 06:12 01/08/19 06:12 PT 13.7 SECONDS (9.7-12.2) H 01/07/19 05:59 INR 1.3 01/07/19 05:59 APTT 25 SECONDS (21-34) 01/07/19 05:59
[2019-01-09] MEDS: Potassium Chloride 20 mEq ER Tab PO SCH ×2 (11:11→11:27)
[2019-01-09] MEDS: Dextrose 5%/0.45% NS 1,000 ML IV SCH ×2 (14:00→16:31)
[2019-01-09] MEDS ORDERED: Lactated Ringer's 500 ML IV ONE ×2 (15:35)
[2019-01-09] MEDS ORDERED: Propofol 10 mg/ml Inj (20 ML) ONE (15:35)
[2019-01-09] MEDS ORDERED: Lidocaine Hydrochloride 5 ML INJ ONE (15:49)
--- NOTE | 2019-01-09 17:05 | CP.PCM.PN ---
Subjective - Date & Time of Evaluation Date of Evaluation: 01/09/19 Time of Evaluation: 17:03 - Subjective Subjective: pt had colonoscopy today positive membranous colitis Objective - Vital Signs/Intake and Output Vital Signs (last 24 hours): Temp Pulse Resp BP Pulse Ox 98.3 F 105 H 22 132/84 100 01/09/19 11:25 01/09/19 15:35 01/09/19 15:35 01/09/19 15:35 01/09/19 15:35 Intake and Output: 01/09/19 01/09/19 06:59 18:59 Intake Total 1030 550 Output Total 4 Balance 1026 550 - Medications Medications: Current Medications Famotidine (Pepcid) 20 mg PO DAILY [facility] Last Admin: 01/09/19 11:32 Dose: 20 mg Furosemide (Lasix) 20 mg PO DAILY [facility] Stop: 01/11/19 10:01 Last Admin: 01/09/19 11:27 Dose: 20 mg Home Med (Patient's Own Medication) 1 tab PO Q12H [facility] Last Admin: 01/09/19 05:14 Dose: 1 tab Metronidazole (Flagyl) 500 mg in 100 mls @ 100 mls/hr IVPB Q8H [facility]; Protocol Last Admin: 01/09/19 14:00 Dose: 100 mls/hr Dextrose/Sodium Chloride (Dextrose 5%/0.45% Ns 1000 Ml) 1,000 mls @ 60 mls/hr IV .[id number] [facility] Last Admin: 01/09/19 16:31 Dose: 60 mls/hr Insulin Human Regular (Novolin R) 0 unit SC ACHS [facility]; Protocol Last Admin: 01/09/19 17:02 Dose: Not Given Metoprolol Succinate (Toprol Xl) 50 mg PO QPM [facility] Last Admin: 01/08/19 17:46 Dose: 50 mg Potassium Chloride (K-Dur 20 Meq Er Tab) 20 meq PO DAILY [facility] Stop: 01/11/19 10:01 Last Admin: 01/09/19 11:27 Dose: 20 meq Sodium Bicarbonate (Sodium Bicarbonate Tab) 650 mg PO BID [facility] Stop: 01/10/19 12:01 Last Admin: 01/09/19 11:32 Dose: 650 mg Venlafaxine HCl (Effexor) 150 mg PO DAILY [facility] Last Admin: 01/09/19 11:32 Dose: 150 mg - Labs Labs: 01/08/19 06:12 01/08/19 06:12 PT 13.7 SECONDS (9.7-12.2) H 01/07/19 05:59 INR 1.3 01/07/19 05:59 APTT 25 SECONDS (21-34) 01/07/19 05:59 - Constitutional Appears: Non-toxic - Head Exam Head Exam: ATRAUMATIC - Eye Exam Eye Exam: Normal appearance Pupil Exam: NORMAL ACCOMODATION - ENT Exam ENT Exam: Mucous Membranes Moist - Neck Exam Neck Exam: Full ROM - Respiratory Exam Respiratory Exam: NORMAL BREATHING PATTERN - Cardiovascular Exam Cardiovascular Exam: REGULAR RHYTHM - GI/Abdominal Exam GI & Abdominal Exam: Tenderness, Normal Bowel Sounds - Exam Exam: NORMAL INSPECTION - Extremities Exam Extremities Exam: Normal Inspection - Neurological Exam Neurological Exam: Awake, Oriented x3 - Psychiatric Exam Psychiatric exam: Normal Affect - Skin Skin Exam: Pallor Assessment and Plan - Assessment and Plan (Free Text) Assessment: membranous colitis copd loss of apetitite depresion Plan: cont as ordered
[2019-01-09] MEDS: Metoprolol Succinate 50 mg XL Tab PO SCH (17:39)
--- NOTE | 2019-01-09 20:09 | PN ---
DATE: 01/09/2019 SUBJECTIVE: The patient is seen. The patient is still feeling weak, having recurrent bouts of diarrhea, marginally cooperative, looks depressed, but more verbal today. MEDICATIONS: Reviewed. The patient is on Effexor, venlafaxine 150 in the morning and Remeron 45, which is recently reduced to 30. We will try to stop the Remeron for now as Remeron can worsen diarrhea, especially the patient has C. difficile colitis. The patient is for possible colonoscopy, but we will try to streamline her psych meds as Remeron can make her diarrhea worse. REVIEW OF SYSTEMS: The patient is alert, but marginally cooperative, seen in room, ICU, bed #2. PHYSICAL EXAMINATION: GENERAL: Not in acute respiratory distress. VITAL SIGNS: Temperature is 98.7, blood pressure 134/64, pulse rate is 101, respirations 23, oxygen saturation is 97%. SKIN: No diaphoresis. HEENT: No headache. No dizziness. NECK: Supple. RESPIRATORY: No dyspnea. CARDIOVASCULAR: No chest pain. GASTROINTESTINAL: Has recurrent diarrhea. No abdominal pain. EXTREMITIES: Moving extremities. MUSCULOSKELETAL: Feels weak. NEUROLOGIC: Alert and oriented x3. GENITOURINARY: No problems. MENTAL STATUS EXAMINATION: An elderly female who looks stated at her age. Mood is depressed, dysphoric. Has poverty of speech. Affect is restricted. Thought process, confused. Thought content, no overt psychosis. No suicidal ideation. Attention and memory seemed to be limited. Insight and judgment limited. Impulse control is fair at this time. IMPRESSION: Recurrent depression as well as anxiety and Clostridium difficile colitis. PLAN AND RECOMMENDATIONS: The patient is seen, medications reviewed. We will discontinue the Remeron for now. We will keep her on the Effexor, Effexor being an SNRI and can at times cause diarrhea and Remeron also can worsen diarrhea. So, we will hold off one medication for now. The patient followed by Gastroenterology and monitor if the diarrhea will improve. Alexandre Kumari MD
--- NOTE | 2019-01-09 22:28 | PN ---
DATE: 01/09/2019 SUBJECTIVE: The patient was seen by me prior to colonoscopy. She had no chest pain. She was experiencing diarrhea. PHYSICAL EXAMINATION: VITAL SIGNS: Blood pressure 132/84, heart rate 105, temperature 98.3, respiration 22. HEENT: Pale conjunctivae. CHEST: Clear. HEART: S1 and S2 regular. EXTREMITIES: 1+ pitting edema. LABORATORY DATA: Today's blood sugars are 133, 134, and 136 respectively. Colonoscopy impression, pseudomembranous enterocolitis. Recommendations, continue present medications and await pathology results. ASSESSMENT AND PLAN: 1. Pseudomembranous enterocolitis. 2. Paroxysmal atrial fibrillation. 3. Dehydration and sinus tachycardia. 4. Hypokalemia and hypocalcemia. RECOMMENDATIONS: Continue current IV Flagyl 500 mg every 8 hours, K-Dur 20 mEq orally daily, Lasix 20 mg orally daily, Pepcid 20 mg orally daily, and Toprol XL at 50 mg once a day. Sukhdev Dave MD
[2019-01-10] MEDS: metroNIDAZOLE IV 500 mg/100 ml 500 MG/100 ML BAG IVPB SCH ×3 (06:11→22:00)
[2019-01-10] MEDS: DIFICID 200 MG PO SCH ×2 (06:12→18:34)
[2019-01-10 06:45] LABS: BLOOD UREA NITROGEN 7 mg/dL (7-17); CALCIUM 7.6 mg/dl (8.6-10.4); GFR NON-AFRICAN AMERICAN > 60
--- NOTE | 2019-01-10 09:37 | CP.PCM.PN ---
Subjective - Date & Time of Evaluation Date of Evaluation: 01/10/19 Time of Evaluation: 09:35 - Subjective Subjective: pt still has abd pain closing her eyes most of time Objective - Vital Signs/Intake and Output Vital Signs (last 24 hours): Temp Pulse Resp BP Pulse Ox 98.5 F 80 20 127/63 96 01/10/19 04:00 01/10/19 04:00 01/10/19 04:00 01/10/19 00:00 01/10/19 04:00 Intake and Output: 01/10/19 01/10/19 06:59 18:59 Intake Total 800 Output Total 4 Balance 796 - Medications Medications: Current Medications Famotidine (Pepcid) 20 mg PO DAILY [facility] Last Admin: 01/09/19 11:32 Dose: 20 mg Furosemide (Lasix) 20 mg PO DAILY [facility] Stop: 01/11/19 10:01 Last Admin: 01/09/19 11:27 Dose: 20 mg Home Med (Patient's Own Medication) 1 tab PO Q12H [facility] Last Admin: 01/10/19 06:12 Dose: 1 tab Metronidazole (Flagyl) 500 mg in 100 mls @ 100 mls/hr IVPB Q8H [facility]; Protocol Last Admin: 01/10/19 06:11 Dose: 100 mls/hr Insulin Human Regular (Novolin R) 0 unit SC ACHS [facility]; Protocol Last Admin: 01/09/19 21:37 Dose: Not Given Metoprolol Succinate (Toprol Xl) 50 mg PO QPM [facility] Last Admin: 01/09/19 17:39 Dose: 50 mg Potassium Chloride (K-Dur 20 Meq Er Tab) 20 meq PO DAILY [facility] Stop: 01/11/19 10:01 Last Admin: 01/09/19 11:27 Dose: 20 meq Sodium Bicarbonate (Sodium Bicarbonate Tab) 650 mg PO BID [facility] Stop: 01/10/19 12:01 Last Admin: 01/09/19 17:39 Dose: 650 mg Venlafaxine HCl (Effexor) 150 mg PO DAILY [facility] Last Admin: 01/09/19 11:32 Dose: 150 mg - Labs Labs: 01/08/19 06:12 01/10/19 06:15 PT 13.7 SECONDS (9.7-12.2) H 01/07/19 05:59 INR 1.3 01/07/19 05:59 APTT 25 SECONDS (21-34) 01/07/19 05:59 - Constitutional Appears: In Acute Distress - Head Exam Head Exam: ATRAUMATIC - Eye Exam Eye Exam: Normal appearance - ENT Exam ENT Exam: Normal Exam - Neck Exam Neck Exam: Full ROM - Respiratory Exam Respiratory Exam: Clear to Ausculation Bilateral - Cardiovascular Exam Cardiovascular Exam: REGULAR RHYTHM - GI/Abdominal Exam GI & Abdominal Exam: Tenderness, Normal Bowel Sounds - Extremities Exam Extremities Exam: Normal Inspection - Neurological Exam Neurological Exam: Awake - Skin Skin Exam: Pallor Assessment and Plan - Assessment and Plan (Free Text) Assessment: membranous colitis abd pain no apetite depression Plan: cont as ordered
[2019-01-10] MEDS: (Novolin R) Insulin Human Regular 100 units/ml vial SC SCH ×4 (09:40→22:56)
[2019-01-10] MEDS: Potassium Chloride 20 mEq ER Tab PO SCH (09:53)
[2019-01-10] MEDS: Dextrose 5%/0.45% NS 1,000 ML IV SCH (11:40)
--- NOTE | 2019-01-10 13:54 | PN ---
DATE: 01/10/2019 SUBJECTIVE: The patient is seen. The patient is marginally cooperative, opens her eyes, refusing to eat when asked as well as to take her meds. The patient seems to be decompensating again. Remeron was taken off as the patient continues to have diarrhea. The patient is currently being treated for C. difficile colitis. REVIEW OF SYSTEMS: This patient is marginally cooperative, sleepy but arousable, seen in her room with minimal verbal output, not in acute respiratory distress, currently in ICU, bed #2. PHYSICAL EXAMINATION: VITAL SIGNS: Temperature is 98.5, pulse 80, blood pressure 127/63, respirations 20, oxygen saturation is 96%. SKIN: No pruritus. HEENT: No headache. No dizziness. NECK: Supple. RESPIRATORY: No dyspnea. CARDIOVASCULAR: No chest pain. GASTROINTESTINAL: Continues to have diarrhea. The patient is refusing to eat despite encouragement this morning. EXTREMITIES: Moving extremities. MUSCULOSKELETAL: Feels weak. NEUROLOGIC: The patient is alert when called by her name, oriented x3. MENTAL STATUS EXAMINATION: An elderly female of [place] descent, oriented x3, sleepy. Affect is restricted. Mood is dysphoric. Thought process, confused at times. Thought content, no psychosis. No suicidal or homicidal ideation. Attention and memory seem to be limited. Insight and judgment are limited. Impulse control is fair at this time. IMPRESSION: Recurrent depression, anxiety, and Clostridium difficile colitis. PLAN AND RECOMMENDATIONS: The patient is seen, meds reviewed. Continue present management. We will keep the patient off Remeron for now as the patient continues to have diarrhea. Continue treatment plan as outlined. If the patient's behavior continues to deteriorate, we will reconsider referring to [facility] in [place]. Alexandre Kumari MD
--- NOTE | 2019-01-10 15:46 | CP.PCM.PN ---
Subjective - Date & Time of Evaluation Date of Evaluation: 01/10/19 Time of Evaluation: 15:20 - Subjective Subjective: f/u diarrhea. Brother present. Still with diarrhea. Denies RB, melena, fever, chills, hematuria, hemoptysis, myalgia, SOB ABdom pain and bloating is less Objective - Vital Signs/Intake and Output Vital Signs (last 24 hours): Temp Pulse Resp BP Pulse Ox 98.0 F 84 20 156/87 H 98 01/10/19 12:00 01/10/19 12:00 01/10/19 12:00 01/10/19 09:53 01/10/19 12:00 Intake and Output: 01/10/19 01/10/19 06:59 18:59 Intake Total 800 690 Output Total 4 Balance 796 690 - Medications Medications: Current Medications Famotidine (Pepcid) 20 mg PO DAILY [facility] Last Admin: 01/10/19 09:54 Dose: 20 mg Furosemide (Lasix) 20 mg PO DAILY [facility] Stop: 01/11/19 10:01 Last Admin: 01/10/19 09:53 Dose: 20 mg Home Med (Patient's Own Medication) 1 tab PO Q12H [facility] Last Admin: 01/10/19 06:12 Dose: 1 tab Metronidazole (Flagyl) 500 mg in 100 mls @ 100 mls/hr IVPB Q8H [facility]; Protocol Last Admin: 01/10/19 14:06 Dose: 100 mls/hr Dextrose/Sodium Chloride (Dextrose 5%/0.45% Ns 1000 Ml) 1,000 mls @ 60 mls/hr IV .[id number] [facility] Last Admin: 01/10/19 11:40 Dose: 60 mls/hr Insulin Human Regular (Novolin R) 0 unit SC ACHS [facility]; Protocol Last Admin: 01/10/19 14:03 Dose: Not Given Metoprolol Succinate (Toprol Xl) 50 mg PO QPM [facility] Last Admin: 01/09/19 17:39 Dose: 50 mg Potassium Chloride (K-Dur 20 Meq Er Tab) 20 meq PO DAILY [facility] Stop: 01/11/19 10:01 Last Admin: 01/10/19 09:53 Dose: 20 meq Venlafaxine HCl (Effexor) 150 mg PO DAILY [facility] Last Admin: 01/10/19 09:53 Dose: 150 mg - Labs Labs: 03/17/19 06:12 01/10/19 06:15 PT 13.7 SECONDS (9.7-12.2) H 01/07/19 05:59 INR 1.3 01/07/19 05:59 APTT 25 SECONDS (21-34) 01/07/19 05:59 - Constitutional Appears: Non-toxic - Neck Exam Neck Exam: absent: Tenderness - Respiratory Exam Respiratory Exam: Clear to Ausculation Bilateral - Cardiovascular Exam Cardiovascular Exam: RRR - GI/Abdominal Exam GI & Abdominal Exam: Soft, Normal Bowel Sounds. absent: Guarding, Tenderness, Mass, Rebound - Extremities Exam Extremities Exam: absent: Calf Tenderness - Neurological Exam Neurological Exam: Alert, Awake Assessment and Plan (1) Depression Status: Acute (2) Anemia Assessment & Plan: Hb stable Status: Acute (3) Abdominal pain Status: Acute (4) Colitis Assessment & Plan: c diff. Imroving- less abd pain. WBC better. But still pseudomembranes and diarrhea. Rec- continu meds- flagyl, dificid. Consider xifaxan, fecal transplant. Status: Acute (5) Sepsis Status: Acute (6) Renal insufficiency Status: Acute (7) Rectal bleed Status: Acute
--- NOTE | 2019-01-10 16:31 | CP.PCM.PN ---
Subjective - Date & Time of Evaluation Date of Evaluation: 01/10/19 Time of Evaluation: 16:30 - Subjective Subjective: Nephrology Consultation Note: Assessment: stable Acute Kidney Injury (N17.9) likely due to ATN due to sepsis, IV contrast : resolved C.Diff colitis, hagma with respi compensation, hyponatremia hypocalcemia nagma Diabetic chronic Kidney Disease (E11.22) Hypertensive Chronic Kidney Disease (I12.9) Chronic Kidney Disease (N18.3) Stage 3 with ? mg proteinuria (R80.9) Anemia (D64.9) hx of dig toxicity, A fib, CVA, hypothyroidism left adrenal nodule Plan check BMP in AM No acute need for renal replacement therapy at this time. renal function improving Hypertension control with meds as ordered. Maintain hemodynamics stable. Avoid h ypotension. Patient not on ACEI/ARB due to recent LOUIE, can add if needed for elevated BP. increased toprol XL to 50 mg/d Monitor Input/Output, daily weights and renal function with basic metabolic valenzuela el supplement lytes as needed sodium bicarb 650 bid lowered lasix prn can be given left adrenal nodule work up as outpt Dose meds/antibiotics for GFR >60. Glycemic control Further work up/management as per primary team Thanks for allowing me to participate in care of your patient. Will follow warner ferreira with you. Please call if any Qs. had d/w team Dr Raghu Solis Office: [phone] Chief Complaint; pain abdomen Reason for consult: Acute Kidney Injury HPI: Pt is a 73 F with hx of diabetes Mellitus ( years), hypertension (years) CKD 3 with baseline cr 1.2-1.4, hx of dig toxicity, A fib, CVA, hypothyroidism presented with complaints of pain abdomen and being managed for sepsis, colitis, transferred to ICU Denies OTC/herbal meds or NSAIDs Noted recent iodinated contrast exposure. Noted obvious episodes of low BP (99/61). pt not aware about kidney disease in past ROS: pt lying comfortably not much communicative Physical Examination: General Appearance: comfortable, in no acute respiratory distress, co-operative . better appearing Vitals reviewed and noted as below Head; Atraumatic, normocephalic ENT: no ulcers no thrush. Tongue is midline. Oropharynx: no rash or ulcers. EYES: Pupils are equal, round and reactive to light accommodation. Eye muscles and extraocular movement intact. Sclera is anicteric. Neck; supple no lymphadenopathy, no thyromegaly or bruit Lungs: Normal respiratory rate/effort. Breath sounds bilateral clerarer Heart: normal rate. s1s2 normal. No rub or gallop. Extremities: 1+ edema. No varicose veins Neurological: Patient is lying comfortably awake alert follow commands Skin: Warm and dry. Normal turgor. No rash. Palpitation: Normal elasticity for age Abdomen: Abdomen is soft. Bowel sounds +. There is upper abdominal tenderness, no guarding/rigidity no organomegaly Psych: deferred MSK: no joint tenderness or swelling. Digits and nails normal, no deformity : kidney or bladder not palpable Labs/imaging reviewed. Past medical history, past surgical history, family history, social history, allergy reviewed and noted as below Family hx: no hx of CKD. Rest non-contributory Objective - Vital Signs/Intake and Output Vital Signs (last 24 hours): Temp Pulse Resp BP Pulse Ox 98.5 F 85 20 118/64 97 01/10/19 16:00 01/10/19 16:00 01/10/19 16:00 01/10/19 16:00 01/10/19 16:00 Intake and Output: 01/10/19 01/10/19 06:59 18:59 Intake Total 800 750 Output Total 4 Balance 796 750 - Medications Medications: Current Medications Famotidine (Pepcid) 20 mg PO DAILY [facility] Last Admin: 01/10/19 09:54 Dose: 20 mg Furosemide (Lasix) 20 mg PO DAILY [facility] Stop: 01/11/19 10:01 Last Admin: 01/10/19 09:53 Dose: 20 mg Home Med (Patient's Own Medication) 1 tab PO Q12H [facility] Last Admin: 01/10/19 06:12 Dose: 1 tab Metronidazole (Flagyl) 500 mg in 100 mls @ 100 mls/hr IVPB Q8H [facility]; Protocol Last Admin: 01/10/19 14:06 Dose: 100 mls/hr Dextrose/Sodium Chloride (Dextrose 5%/0.45% Ns 1000 Ml) 1,000 mls @ 60 mls/hr IV .[id number] [facility] Last Admin: 01/10/19 11:40 Dose: 60 mls/hr Insulin Human Regular (Novolin R) 0 unit SC ACHS [facility]; Protocol Last Admin: 01/10/19 14:03 Dose: Not Given Metoprolol Succinate (Toprol Xl) 50 mg PO QPM [facility] Last Admin: 01/09/19 17:39 Dose: 50 mg Potassium Chloride (K-Dur 20 Meq Er Tab) 20 meq PO DAILY [facility] Stop: 01/11/19 10:01 Last Admin: 01/10/19 09:53 Dose: 20 meq Venlafaxine HCl (Effexor) 150 mg PO DAILY [facility] Last Admin: 01/10/19 09:53 Dose: 150 mg - Labs Labs: 01/08/19 06:12 01/10/19 06:15 PT 13.7 SECONDS (9.7-12.2) H 01/07/19 05:59 INR 1.3 01/07/19 05:59 APTT 25 SECONDS (21-34) 01/07/19 05:59
--- NOTE | 2019-01-10 18:11 | PN ---
DATE: 01/10/2019 SUBJECTIVE: The patient complains of retrosternal pain and sensation. PHYSICAL EXAMINATION: VITAL SIGNS: Blood pressure 156/87, heart rate 84, temperature 98, and respirations 20. HEENT: Normocephalic. CHEST: Clear. HEART: S1 and S2 regular. EXTREMITIES: 1+ pitting edema. LABORATORY DATA: Today's SMA-7: Sodium 139, potassium 3.5, chloride 111, CO2 of 25, glucose 109, BUN 7, and creatinine 0.8. Today's calcium is 7.6. ASSESSMENT: 1. Pseudomembranous colitis. 2. Retrosternal burning sensation. 3. History of paroxysmal atrial fibrillation. 4. Mild anemia. 5. Hypocalcemia and hypokalemia. 6. Depression. RECOMMENDATIONS: Continue IV Flagyl 500 mg every 8 hours, K-Dur 20 mEq was supplemented today. Continue Lasix 20 mg p.o. once a day, Toprol XL 50 mg once a day. I requested a 12-lead EKG. Sukhdev Dave MD
[2019-01-10] MEDS: Metoprolol Succinate 50 mg XL Tab PO SCH (18:33)
[2019-01-11] MEDS: DIFICID 200 MG PO SCH ×2 (05:06→18:30)
[2019-01-11] MEDS: metroNIDAZOLE IV 500 mg/100 ml 500 MG/100 ML BAG IVPB SCH ×3 (05:07→22:26)
[2019-01-11] MEDS: Dextrose 5%/0.45% NS 1,000 ML IV SCH ×2 (07:05→21:14)
[2019-01-11] MEDS: Potassium Chloride 20 mEq ER Tab PO SCH (10:46)
[2019-01-11] MEDS: (Novolin R) Insulin Human Regular 100 units/ml vial SC SCH ×3 (10:46→22:00)
--- NOTE | 2019-01-11 11:19 | CP.PCM.PN ---
Subjective - Date & Time of Evaluation Date of Evaluation: 01/11/19 Time of Evaluation: 11:17 - Subjective Subjective: Less diarrhea Abdominal discomfort Poor appetite On Dificid/Flagyl Objective - Vital Signs/Intake and Output Vital Signs (last 24 hours): Temp Pulse Resp BP Pulse Ox 98.3 F 80 18 136/74 98 01/11/19 04:00 01/11/19 04:00 01/11/19 04:00 01/11/19 10:46 01/11/19 04:00 Intake and Output: 01/11/19 01/11/19 06:59 18:59 Intake Total 800 290 Output Total 2 1 Balance 798 289 - Medications Medications: Current Medications Famotidine (Pepcid) 20 mg PO DAILY [facility] Last Admin: 01/11/19 10:46 Dose: 20 mg Home Med (Patient's Own Medication) 1 tab PO Q12H [facility] Last Admin: 01/11/19 05:06 Dose: 1 tab Metronidazole (Flagyl) 500 mg in 100 mls @ 100 mls/hr IVPB Q8H [facility]; Protocol Last Admin: 01/11/19 05:07 Dose: 100 mls/hr Dextrose/Sodium Chloride (Dextrose 5%/0.45% Ns 1000 Ml) 1,000 mls @ 60 mls/hr IV .[id number] [facility] Last Admin: 01/11/19 07:05 Dose: 60 mls/hr Multivitamins/Vitamin C 10 ml/Chromium/Copper/Manganese/Zinc 1 ml/ Amino Acids 1,011 mls @ 42 mls/hr IV .Q24H [facility] Stop: 01/12/19 17:59 Fat Emulsion Intravenous (Intralipid 20%) 500 mls @ 42 mls/hr IV QOD [facility] Stop: 01/18/19 18:01 Insulin Human Regular (Novolin R) 0 unit SC ACHS [facility]; Protocol Last Admin: 01/11/19 10:46 Dose: Not Given Metoprolol Succinate (Toprol Xl) 50 mg PO QPM [facility] Last Admin: 01/10/19 18:33 Dose: 50 mg Venlafaxine HCl (Effexor) 150 mg PO DAILY [facility] Last Admin: 01/11/19 10:46 Dose: 150 mg - Labs Labs: 01/08/19 06:12 01/10/19 06:15 PT 13.7 SECONDS (9.7-12.2) H 01/07/19 05:59 INR 1.3 01/07/19 05:59 APTT 25 SECONDS (21-34) 01/07/19 05:59 - Constitutional Appears: No Acute Distress, Chronically Ill - Head Exam Head Exam: NORMOCEPHALIC - Respiratory Exam Respiratory Exam: Clear to Ausculation Bilateral - Cardiovascular Exam Cardiovascular Exam: REGULAR RHYTHM - GI/Abdominal Exam GI & Abdominal Exam: Distended, Soft. absent: Tenderness Assessment and Plan (1) Clostridium difficile colitis Assessment & Plan: Prolonged course Continue meds Try to advance to low fiber diet Status: Acute
--- NOTE | 2019-01-11 12:02 | CP.PCM.PN ---
Subjective - Date & Time of Evaluation Date of Evaluation: 01/11/19 Time of Evaluation: 12:01 - Subjective Subjective: Nephrology Consultation Note: Assessment: stable Acute Kidney Injury (N17.9) likely due to ATN due to sepsis, IV contrast : resolved C.Diff colitis, hagma with respi compensation, hyponatremia hypocalcemia nagma Diabetic chronic Kidney Disease (E11.22) Hypertensive Chronic Kidney Disease (I12.9) Chronic Kidney Disease (N18.3) Stage 3 with ? mg proteinuria (R80.9) Anemia (D64.9) hx of dig toxicity, A fib, CVA, hypothyroidism left adrenal nodule Plan check BMP in AM No acute need for renal replacement therapy at this time. renal function improving Hypertension control with meds as ordered. Maintain hemodynamics stable. Avoid h ypotension. Patient not on ACEI/ARB due to recent LOUIE, can add if needed for elevated BP. increased toprol XL to 50 mg/d Monitor Input/Output, daily weights and renal function with basic metabolic valenzuela el supplement lytes as needed sodium bicarb 650 bid lowered lasix prn can be given left adrenal nodule work up as outpt Dose meds/antibiotics for GFR >60. Glycemic control Further work up/management as per primary team Thanks for allowing me to participate in care of your patient. please call if any Qs. had d/w team Dr Raghu Solis Office: [phone] Chief Complaint; pain abdomen Reason for consult: Acute Kidney Injury HPI: Pt is a 73 F with hx of diabetes Mellitus ( years), hypertension (years) CKD 3 with baseline cr 1.2-1.4, hx of dig toxicity, A fib, CVA, hypothyroidism presented with complaints of pain abdomen and being managed for sepsis, colitis, transferred to ICU Denies OTC/herbal meds or NSAIDs Noted recent iodinated contrast exposure. Noted obvious episodes of low BP (99/61). pt not aware about kidney disease in past ROS: pt lying comfortably not much communicative denies cp/sob Physical Examination: General Appearance: comfortable, in no acute respiratory distress, co-operative . well appearing Vitals reviewed and noted as below Head; Atraumatic, normocephalic ENT: no ulcers no thrush. Tongue is midline. Oropharynx: no rash or ulcers. EYES: Pupils are equal, round and reactive to light accommodation. Eye muscles and extraocular movement intact. Sclera is anicteric. Neck; supple no lymphadenopathy, no thyromegaly or bruit Lungs: Normal respiratory rate/effort. Breath sounds bilateral clerarer Heart: normal rate. s1s2 normal. No rub or gallop. Extremities: trace edema. No varicose veins Neurological: Patient is lying comfortably awake alert follow commands Skin: Warm and dry. Normal turgor. No rash. Palpitation: Normal elasticity for age Abdomen: Abdomen is soft. Bowel sounds +. There is upper abdominal tenderness, no guarding/rigidity no organomegaly Psych: deferred MSK: no joint tenderness or swelling. Digits and nails normal, no deformity : kidney or bladder not palpable Labs/imaging reviewed. Past medical history, past surgical history, family history, social history, allergy reviewed and noted as below Family hx: no hx of CKD. Rest non-contributory Objective - Vital Signs/Intake and Output Vital Signs (last 24 hours): Temp Pulse Resp BP Pulse Ox 98.3 F 80 18 136/74 98 01/11/19 04:00 01/11/19 04:00 01/11/19 04:00 01/11/19 10:46 01/11/19 04:00 Intake and Output: 01/11/19 01/11/19 06:59 18:59 Intake Total 800 290 Output Total 2 1 Balance 798 289 - Medications Medications: Current Medications Famotidine (Pepcid) 20 mg PO DAILY [facility] Last Admin: 01/11/19 10:46 Dose: 20 mg Home Med (Patient's Own Medication) 1 tab PO Q12H [facility] Last Admin: 01/11/19 05:06 Dose: 1 tab Metronidazole (Flagyl) 500 mg in 100 mls @ 100 mls/hr IVPB Q8H [facility]; Protocol Last Admin: 01/11/19 05:07 Dose: 100 mls/hr Dextrose/Sodium Chloride (Dextrose 5%/0.45% Ns 1000 Ml) 1,000 mls @ 60 mls/hr IV .[id number] [facility] Last Admin: 01/11/19 07:05 Dose: 60 mls/hr Multivitamins/Vitamin C 10 ml/Chromium/Copper/Manganese/Zinc 1 ml/ Amino Acids 1,011 mls @ 42 mls/hr IV .Q24H [facility] Stop: 01/12/19 17:59 Fat Emulsion Intravenous (Intralipid 20%) 500 mls @ 42 mls/hr IV QOD [facility] Stop: 01/18/19 18:01 Insulin Human Regular (Novolin R) 0 unit SC ACHS [facility]; Protocol Last Admin: 01/11/19 10:46 Dose: Not Given Metoprolol Succinate (Toprol Xl) 50 mg PO QPM [facility] Last Admin: 01/10/19 18:33 Dose: 50 mg Venlafaxine HCl (Effexor) 150 mg PO DAILY [facility] Last Admin: 01/11/19 10:46 Dose: 150 mg - Labs Labs: 01/08/19 06:12 01/10/19 06:15 PT 13.7 SECONDS (9.7-12.2) H 01/07/19 05:59 INR 1.3 01/07/19 05:59 APTT 25 SECONDS (21-34) 01/07/19 05:59
--- NOTE | 2019-01-11 12:12 | CP.PCM.PN ---
Subjective - Date & Time of Evaluation Date of Evaluation: 01/11/19 Time of Evaluation: 12:10 - Subjective Subjective: still has diarhea poor apetite less abd pain Objective - Vital Signs/Intake and Output Vital Signs (last 24 hours): Temp Pulse Resp BP Pulse Ox 98.3 F 80 18 136/74 98 01/11/19 04:00 01/11/19 04:00 01/11/19 04:00 01/11/19 10:46 01/11/19 04:00 Intake and Output: 01/11/19 01/11/19 06:59 18:59 Intake Total 800 290 Output Total 2 1 Balance 798 289 - Medications Medications: Current Medications Famotidine (Pepcid) 20 mg PO DAILY [facility] Last Admin: 01/11/19 10:46 Dose: 20 mg Home Med (Patient's Own Medication) 1 tab PO Q12H [facility] Last Admin: 01/11/19 05:06 Dose: 1 tab Metronidazole (Flagyl) 500 mg in 100 mls @ 100 mls/hr IVPB Q8H [facility]; Protocol Last Admin: 01/11/19 05:07 Dose: 100 mls/hr Dextrose/Sodium Chloride (Dextrose 5%/0.45% Ns 1000 Ml) 1,000 mls @ 60 mls/hr IV .[id number] [facility] Last Admin: 01/11/19 07:05 Dose: 60 mls/hr Multivitamins/Vitamin C 10 ml/Chromium/Copper/Manganese/Zinc 1 ml/ Amino Acids 1,011 mls @ 42 mls/hr IV .Q24H [facility] Stop: 01/12/19 17:59 Fat Emulsion Intravenous (Intralipid 20%) 500 mls @ 42 mls/hr IV QOD [facility] Stop: 01/18/19 18:01 Insulin Human Regular (Novolin R) 0 unit SC ACHS [facility]; Protocol Last Admin: 01/11/19 10:46 Dose: Not Given Metoprolol Succinate (Toprol Xl) 50 mg PO QPM [facility] Last Admin: 01/10/19 18:33 Dose: 50 mg Venlafaxine HCl (Effexor) 150 mg PO DAILY [facility] Last Admin: 01/11/19 10:46 Dose: 150 mg - Labs Labs: 01/08/19 06:12 01/10/19 06:15 PT 13.7 SECONDS (9.7-12.2) H 01/07/19 05:59 INR 1.3 01/07/19 05:59 APTT 25 SECONDS (21-34) 01/07/19 05:59 - Constitutional Appears: Non-toxic, In Acute Distress - Head Exam Head Exam: ATRAUMATIC - Eye Exam Eye Exam: Normal appearance Pupil Exam: NORMAL ACCOMODATION - ENT Exam ENT Exam: Mucous Membranes Moist - Neck Exam Neck Exam: Full ROM - Respiratory Exam Respiratory Exam: Decreased Breath Sounds - Cardiovascular Exam Cardiovascular Exam: REGULAR RHYTHM - GI/Abdominal Exam GI & Abdominal Exam: Normal Bowel Sounds - Exam Exam: NORMAL INSPECTION - Extremities Exam Extremities Exam: Normal Capillary Refill - Back Exam Back Exam: NORMAL INSPECTION - Neurological Exam Neurological Exam: Alert, Awake, Oriented x3 - Psychiatric Exam Psychiatric exam: Normal Affect - Skin Skin Exam: Pallor Assessment and Plan - Assessment and Plan (Free Text) Assessment: membranous colitis poor apetit depression Plan: will start hyperelementasion
--- NOTE | 2019-01-11 17:22 | PN ---
DATE: 01/11/2019 SUBJECTIVE: The patient is seen. The patient seems to be in better spirits today, more verbal. She is more cooperative. According to Dr. Vasquez, the patient has a bad case of colitis, currently on Flagyl. The patient's psych meds were reduced. The patient is only on Effexor and Remeron was discontinued as the patient had continuous bouts of diarrhea and Remeron can worsen diarrhea. She has been more cooperative today. The patients wants to go home. REVIEW OF SYSTEMS: The patient is more alert, verbal, seen in room, more cooperative, still in ICU bed #2. PHYSICAL EXAMINATION: VITAL SIGNS: Temperature 98.3, heart rate 80, blood pressure 136/74, respirations 18, and oxygen saturation is 98%. SKIN: No pruritus. HEENT: No headache or dizziness. NECK: Supple. RESPIRATORY: No dyspnea. CARDIOVASCULAR: No chest pain. GASTROINTESTINAL: Continues to have diarrhea. No abdominal pain, nausea or vomiting. EXTREMITIES: The patient is moving extremities. MUSCULOSKELETAL: Feels weak, has generalized weakness. NEUROLOGIC: Alert and oriented x3. GENITOURINARY: No dysuria. MENTAL STATUS EXAMINATION: An elderly female, who looks stated age, more alert, verbal, and oriented x3. Speech, as stated, is more verbal. Affect is reactive. Thought process, coherent. Thought content, no psychosis. No suicidal or homicidal ideation. Attention and memory seemed to be fair. Insight and judgment, limited. Impulse control is fair at this time. IMPRESSION: History of recurrent depression, anxiety, as well as Clostridium difficile colitis. PLAN AND RECOMMENDATIONS: The patient is seen, medications reviewed. Continue present management. We will keep the patient off Remeron. Continue Flagyl. Continue treatment and plan as outlined. I discussed with the patient that we will put her back on old medications. The patient is off Ambien and Remeron and will reassess if she willneed he rother meds until her medical condition will improve. Alexandre Kumari MD [id number]
[2019-01-11] MEDS ORDERED: PPN #1 IV ONE (18:00)
[2019-01-11] MEDS ORDERED: Fat Emulsion 20% IV 500 ML IV SCH (18:00)
[2019-01-11] MEDS: Metoprolol Succinate 50 mg XL Tab PO SCH (18:29)
--- NOTE | 2019-01-11 18:32 | CP.PCM.PN ---
Subjective - Date & Time of Evaluation Date of Evaluation: 01/11/19 Time of Evaluation: 09:00 - Subjective Subjective: Less diarrhea Abdominal discomfort Poor appetite On Dificid/Flagyl Objective - Vital Signs/Intake and Output Vital Signs (last 24 hours): Temp Pulse Resp BP Pulse Ox 98.3 F 80 18 136/74 98 01/11/19 04:00 01/11/19 04:00 01/11/19 04:00 01/11/19 10:46 01/11/19 04:00 Intake and Output: 01/11/19 01/11/19 06:59 18:59 Intake Total 800 290 Output Total 2 1 Balance 798 289 - Medications Medications: Current Medications Famotidine (Pepcid) 20 mg PO DAILY [facility] Last Admin: 01/11/19 10:46 Dose: 20 mg Home Med (Patient's Own Medication) 1 tab PO Q12H [facility] Last Admin: 01/11/19 18:30 Dose: 1 tab Metronidazole (Flagyl) 500 mg in 100 mls @ 100 mls/hr IVPB Q8H [facility]; Protocol Last Admin: 01/11/19 14:28 Dose: 100 mls/hr Dextrose/Sodium Chloride (Dextrose 5%/0.45% Ns 1000 Ml) 1,000 mls @ 60 mls/hr IV .[id number] [facility] Last Admin: 01/11/19 07:05 Dose: 60 mls/hr Multivitamins/Vitamin C 10 ml/Chromium/Copper/Manganese/Zinc 1 ml/ Amino Acids 1,011 mls @ 42 mls/hr IV .Q24H ONE Stop: 01/12/19 17:59 Last Admin: 01/11/19 18:28 Dose: 42 mls/hr Fat Emulsion Intravenous (Intralipid 20%) 500 mls @ 42 mls/hr IV QOD [facility] Stop: 01/18/19 18:01 Last Admin: 01/11/19 18:28 Dose: 42 mls/hr Insulin Human Regular (Novolin R) 0 unit SC ACHS [facility]; Protocol Last Admin: 01/11/19 18:27 Dose: Not Given Metoprolol Succinate (Toprol Xl) 50 mg PO QPM [facility] Last Admin: 01/11/19 18:29 Dose: 50 mg Venlafaxine HCl (Effexor) 150 mg PO DAILY [facility] Last Admin: 01/11/19 10:46 Dose: 150 mg - Labs Labs: 01/08/19 06:12 01/10/19 06:15 PT 13.7 SECONDS (9.7-12.2) H 01/07/19 05:59 INR 1.3 01/07/19 05:59 APTT 25 SECONDS (21-34) 01/07/19 05:59 - Constitutional Appears: Non-toxic, Confused, Cachectic, Chronically Ill - Head Exam Head Exam: ATRAUMATIC, NORMAL INSPECTION, NORMOCEPHALIC - Eye Exam Eye Exam: EOMI, Normal appearance, PERRL Pupil Exam: NORMAL ACCOMODATION, PERRL - ENT Exam ENT Exam: Mucous Membranes Moist, Normal Exam - Neck Exam Neck Exam: Full ROM, Normal Inspection. absent: Lymphadenopathy - Respiratory Exam Respiratory Exam: Clear to Ausculation Bilateral, NORMAL BREATHING PATTERN - Cardiovascular Exam Cardiovascular Exam: REGULAR RHYTHM, +S1, +S2. absent: Murmur - GI/Abdominal Exam GI & Abdominal Exam: Soft, Normal Bowel Sounds. absent: Tenderness - Rectal Exam Rectal Exam: Deferred - Extremities Exam Extremities Exam: Full ROM, Normal Capillary Refill, Normal Inspection. absent: Joint Swelling, Pedal Edema - Back Exam Back Exam: NORMAL INSPECTION - Neurological Exam Neurological Exam: Alert, Awake, CN II-XII Intact - Psychiatric Exam Psychiatric exam: Depressed - Skin Skin Exam: Dry, Intact, Normal Color, Warm Assessment and Plan (1) Abdominal pain Status: Acute (2) Colitis Status: Acute (3) Sepsis Status: Acute (4) Depressed Status: Acute (5) Renal insufficiency Status: Acute (6) Change in mental status Status: Chronic (7) Dementia Status: Chronic (8) LOUIE (acute kidney injury) Status: Resolved (9) Atrial fibrillation with RVR Status: Resolved (10) Congestive cardiac failure Status: Resolved (11) Renal insufficiency Status: Resolved (12) CVA (cerebral vascular accident) Status: Ruled-out (13) Seizures Status: Ruled-out - Assessment and Plan (Free Text) Assessment: cont iv and PO rx as ordered
--- NOTE | 2019-01-11 18:56 | CARD ---
APPROVED REPORT Date of service: 01/10/2019 EKG Measurement Heart [id number] <Conclusion> Sinus tachycardia with premature atrial complexes Nonspecific T wave abnormality Low voltage Abnormal ECG
--- NOTE | 2019-01-11 19:38 | PN ---
DATE: 01/11/2019 SUBJECTIVE: The patient denies palpitation or chest pain. She is still experiencing diarrhea. PHYSICAL EXAMINATION: VITAL SIGNS: Blood pressure 135/78, heart rate 80, temperature 98.3, respirations 18. HEENT: Pale conjunctivae. CHEST: Diminished breath sounds over the bases. HEART: S1 and S2 regular. ABDOMEN: Soft. EXTREMITIES: 1+ pitting edema. LABORATORY DATA: Today's blood sugars are 113 and 140 respectively. Yesterday's EKG revealed sinus tachycardia with APCs at a heart rate of 104 with nonspecific T wave changes. ASSESSMENT: 1. History of paroxysmal atrial fibrillation. 2. Pseudomembranous colitis. 3. Dehydration and sinus tachycardia. 4. Mild anemia. 5. Depression. 6. Improved renal insufficiency. RECOMMENDATIONS: Continue current Flagyl 500 mg intravenously every 8 hours, Toprol-XL 50 mg once a day, Pepcid 20 mg once a day. Obtain a followup BMP in a.m. as the patient was mildly hypokalemic yesterday. Sukhdev Dave MD
[2019-01-12] MEDS: metroNIDAZOLE IV 500 mg/100 ml 500 MG/100 ML BAG IVPB SCH ×3 (05:39→21:55)
[2019-01-12] MEDS: DIFICID 200 MG PO SCH ×2 (05:41→17:15)
[2019-01-12] MEDS: (Novolin R) Insulin Human Regular 100 units/ml vial SC SCH ×4 (08:30→21:55)
--- NOTE | 2019-01-12 12:18 | CP.PCM.PN ---
Subjective - Date & Time of Evaluation Date of Evaluation: 01/12/19 Time of Evaluation: 11:50 - Subjective Subjective: F/U COLITIS. rEPORTS LESS DIARRHEA. dENIES rb, MELENA, ABD PAIN, FEVER, CHILLS, sz, LOC, GARCIA, hematuria Objective - Vital Signs/Intake and Output Vital Signs (last 24 hours): Temp Pulse Resp BP Pulse Ox 97.7 F 110 H 20 149/91 H 97 01/12/19 08:13 01/12/19 08:13 01/12/19 08:13 01/12/19 08:13 01/12/19 08:13 Intake and Output: 01/12/19 01/12/19 06:59 18:59 Intake Total 954 Balance 954 - Medications Medications: Current Medications Famotidine (Pepcid) 20 mg PO DAILY [facility] Last Admin: 01/12/19 10:55 Dose: Not Given Home Med (Patient's Own Medication) 1 tab PO Q12H [facility] Last Admin: 01/12/19 05:41 Dose: 1 tab Metronidazole (Flagyl) 500 mg in 100 mls @ 100 mls/hr IVPB Q8H [facility]; Protocol Last Admin: 01/12/19 05:39 Dose: 100 mls/hr Dextrose/Sodium Chloride (Dextrose 5%/0.45% Ns 1000 Ml) 1,000 mls @ 60 mls/hr IV .[id number] [facility] Last Admin: 01/11/19 21:14 Dose: Not Given Fat Emulsion Intravenous (Intralipid 20%) 500 mls @ 42 mls/hr IV QOD [facility] Stop: 01/18/19 18:01 Last Admin: 01/11/19 18:28 Dose: 42 mls/hr Multivitamins/Vitamin C 10 ml/Chromium/Copper/Manganese/Zinc 1 ml/ Amino Acids 1,011 mls @ 42 mls/hr IV .Q24H [facility] Stop: 01/13/19 17:59 Insulin Human Regular (Novolin R) 0 unit SC ACHS [facility]; Protocol Last Admin: 01/12/19 08:30 Dose: Not Given Metoprolol Succinate (Toprol Xl) 50 mg PO QPM [facility] Last Admin: 01/11/19 18:29 Dose: 50 mg Venlafaxine HCl (Effexor) 150 mg PO DAILY [facility] Last Admin: 01/12/19 10:55 Dose: Not Given - Labs Labs: 01/08/19 06:12 01/10/19 06:15 PT 13.7 SECONDS (9.7-12.2) H 01/07/19 05:59 INR 1.3 01/07/19 05:59 APTT 25 SECONDS (21-34) 01/07/19 05:59 - Constitutional Appears: Non-toxic - Respiratory Exam Respiratory Exam: Clear to Ausculation Bilateral - Cardiovascular Exam Cardiovascular Exam: RRR - GI/Abdominal Exam GI & Abdominal Exam: Soft, Normal Bowel Sounds. absent: Guarding, Tenderness, Mass - Extremities Exam Extremities Exam: absent: Calf Tenderness - Neurological Exam Neurological Exam: Alert, Awake Assessment and Plan (1) Depression Status: Acute (2) Anemia Status: Acute (3) Abdominal pain Status: Acute (4) Colitis Assessment & Plan: c diff. overall improving, Follow for diarrhea. Continue meds WAS PO VANCO STOPPED? Status: Acute (5) Sepsis Status: Acute (6) Renal insufficiency Status: Acute (7) Rectal bleed Status: Acute
--- NOTE | 2019-01-12 13:26 | CP.PCM.PN ---
Subjective - Date & Time of Evaluation Date of Evaluation: 01/12/19 Time of Evaluation: 13:25 - Subjective Subjective: Nephrology Consultation Note: Assessment: stable Acute Kidney Injury (N17.9) likely due to ATN due to sepsis, IV contrast : resolved C.Diff colitis, hagma with respi compensation, hyponatremia hypocalcemia nagma Diabetic chronic Kidney Disease (E11.22) Hypertensive Chronic Kidney Disease (I12.9) Chronic Kidney Disease (N18.3) Stage 3 with ? mg proteinuria (R80.9) Anemia (D64.9) hx of dig toxicity, A fib, CVA, hypothyroidism left adrenal nodule Plan Hypertension control with meds as ordered. Maintain hemodynamics stable. Avoid hypotension. Patient not on ACEI/ARB due to recent LOUIE, can add if needed for elevated BP. increased toprol XL to 50 mg/d Monitor Input/Output, daily weights and renal function with basic metabolic pa antelmo supplement lytes as needed sodium bicarb 650 bid lowered lasix prn can be given pt planned for parenteral nutritional support left adrenal nodule work up as outpt Dose meds/antibiotics for GFR >60. Glycemic control Further work up/management as per primary team Thanks for allowing me to participate in care of your patient. please call if any Qs. had d/w team Dr Raghu Solis Office: [phone] Chief Complaint; pain abdomen Reason for consult: Acute Kidney Injury HPI: Pt is a 73 F with hx of diabetes Mellitus ( years), hypertension (years) CKD 3 with baseline cr 1.2-1.4, hx of dig toxicity, A fib, CVA, hypothyroidism presented with complaints of pain abdomen and being managed for sepsis, colitis, transferred to ICU Denies OTC/herbal meds or NSAIDs Noted recent iodinated contrast exposure. Noted obvious episodes of low BP (99/61). pt not aware about kidney disease in past ROS: pt lying comfortably no new complaints denies cp/sob Physical Examination: General Appearance: comfortable, in no acute respiratory distress, co-operative . well appearing Vitals reviewed and noted as below Head; Atraumatic, normocephalic ENT: no ulcers no thrush. Tongue is midline. Oropharynx: no rash or ulcers. EYES: Pupils are equal, round and reactive to light accommodation. Eye muscles and extraocular movement intact. Sclera is anicteric. Neck; supple no lymphadenopathy, no thyromegaly or bruit Lungs: Normal respiratory rate/effort. Breath sounds bilateral clerarer Heart: normal rate. s1s2 normal. No rub or gallop. Extremities: trace edema. No varicose veins Neurological: Patient is lying comfortably awake alert follow commands Skin: Warm and dry. Normal turgor. No rash. Palpitation: Normal elasticity for age Abdomen: Abdomen is soft. Bowel sounds +. There is upper abdominal tenderness, no guarding/rigidity no organomegaly Psych: deferred MSK: no joint tenderness or swelling. Digits and nails normal, no deformity : kidney or bladder not palpable Labs/imaging reviewed. Past medical history, past surgical history, family history, social history, allergy reviewed and noted as below Family hx: no hx of CKD. Rest non-contributory Objective - Vital Signs/Intake and Output Vital Signs (last 24 hours): Temp Pulse Resp BP Pulse Ox 97.7 F 110 H 20 149/91 H 97 01/12/19 08:13 01/12/19 08:13 01/12/19 08:13 01/12/19 08:13 01/12/19 08:13 Intake and Output: 01/12/19 01/12/19 06:59 18:59 Intake Total 954 Balance 954 - Medications Medications: Current Medications Famotidine (Pepcid) 20 mg PO DAILY [facility] Last Admin: 01/12/19 10:55 Dose: Not Given Home Med (Patient's Own Medication) 1 tab PO Q12H [facility] Last Admin: 01/12/19 05:41 Dose: 1 tab Metronidazole (Flagyl) 500 mg in 100 mls @ 100 mls/hr IVPB Q8H [facility]; Protocol Last Admin: 01/12/19 05:39 Dose: 100 mls/hr Dextrose/Sodium Chloride (Dextrose 5%/0.45% Ns 1000 Ml) 1,000 mls @ 60 mls/hr IV .[id number] [facility] Last Admin: 01/11/19 21:14 Dose: Not Given Fat Emulsion Intravenous (Intralipid 20%) 500 mls @ 42 mls/hr IV QOD [facility] Stop: 01/18/19 18:01 Last Admin: 01/11/19 18:28 Dose: 42 mls/hr Multivitamins/Vitamin C 10 ml/Chromium/Copper/Manganese/Zinc 1 ml/ Amino Acids 1,011 mls @ 42 mls/hr IV .Q24H [facility] Stop: 01/13/19 17:59 Insulin Human Regular (Novolin R) 0 unit SC ACHS [facility]; Protocol Last Admin: 01/12/19 08:30 Dose: Not Given Metoprolol Succinate (Toprol Xl) 50 mg PO QPM [facility] Last Admin: 01/11/19 18:29 Dose: 50 mg Venlafaxine HCl (Effexor) 150 mg PO DAILY [facility] Last Admin: 01/12/19 10:55 Dose: Not Given - Labs Labs: 01/08/19 06:12 01/10/19 06:15 PT 13.7 SECONDS (9.7-12.2) H 01/07/19 05:59 INR 1.3 01/07/19 05:59 APTT 25 SECONDS (21-34) 01/07/19 05:59
--- NOTE | 2019-01-12 13:39 | PN ---
DATE: 01/12/2019 SUBJECTIVE: The patient is seen. The patient is marginally cooperative again today, refusing to talk for most when seen. She is sleeping. She was transferred from ICU. The patient has pseudomembranous colitis, but behavior is still fluctuating. She is only on Effexor 150 mg at bedtime. REVIEW OF SYSTEMS: The patient is seen in her room, sleepy, arousable but marginally cooperative. PHYSICAL EXAMINATION: VITAL SIGNS: Temperature is 97.7, heart rate 110, blood pressure 149/91, respirations 20, and oxygen saturation is 97%. SKIN: No diaphoresis. HEENT: No headache, no dizziness. NECK: Supple. RESPIRATORY: No dyspnea. CARDIOVASCULAR: No chest pain. GASTROINTESTINAL: The patient is still having diarrhea. No abdominal pain. EXTREMITIES: Moving extremities. NEUROLOGIC: The patient is drowsy, but arousable. Cognitively intact. GENITOURINARY: No complaint of any urinary problems. The patient is currently in isolation as patient has colitis. MENTAL STATUS EXAMINATION: An elderly female, who looks stated age, seen in her room drowsy, sleepy, marginally cooperative as stated. Speech is slow. Affect is restricted. Mood dysphoric. Thought process, coherent. Thought content, the patient has no overt psychosis. No suicidal or homicidal ideation. Attention and memory seemed to be limited. Insight and judgment, limited. Impulse control is fair at this time. IMPRESSION: Recurrent depression and anxiety. Pseudomembranous colitis. PLAN AND RECOMMENDATIONS: The patient is seen. Meds reviewed. Continue present management. Continue present psych medications. We will hold if any change of her psych medications for now. The patient will benefit from subacute rehab once she is medically stable due to deconditioning. The patient was in [facility] before. I saw her there and she had no problems while in the rehab. Alexandre Kumari MD
[2019-01-12] MEDS: Dextrose 5%/0.45% NS 1,000 ML IV SCH (14:03)
[2019-01-12 14:14] LABS: BASO % 0.5 % (0.0-2.0); HEMOGLOBIN 10.6 g/dL (11.0-16.0); LYMPH # 2.5 K/uL (1.0-4.3); LYMPH % 41.2 % (20.0-40.0); MEAN CELL VOLUME 83.5 fL (81.0-99.0); MEAN CORPUSCULAR HEMOGLOBIN 26.8 pg (27.0-31.0); MEAN CORPUSCULAR HGB CONC 32.1 g/dL (33.0-37.0); MEAN PLATELET VOLUME 8.3 fL (7.2-11.7); MONO # 0.4 K/uL (0.0-0.8); MONO % 7.2 % (0.0-10.0); NEUT # 3.1 K/uL (1.8-7.0); NEUT % 51.1 % (50.0-75.0); NRBC % 0.2 % (0.0-2.0); RBC 3.95 Mil/uL (3.80-5.20); RED CELL DISTRIBUTION WIDTH 21.1 % (11.5-14.5); WHITE BLOOD COUNT 6.1 K/uL (4.8-10.8)
[2019-01-12 14:38] LABS: ALB/GLOB RATIO 0.7 (1.0-2.1); ALBUMIN 2.3 g/dL (3.5-5.0); ALT/SGPT 19 U/L (9-52); AST/SGOT 19 U/L (14-36); BLOOD UREA NITROGEN 6 mg/dL (7-17); GFR NON-AFRICAN AMERICAN > 60
[2019-01-12] MEDS ORDERED: Magnesium Sulfate 1 gm in D5W 1 GM/100 ML BAG IVPB ONE (16:00)
[2019-01-12] MEDS: Metoprolol Succinate 50 mg XL Tab PO SCH (17:13)
--- NOTE | 2019-01-12 17:20 | CP.PCM.PN ---
Subjective - Date & Time of Evaluation Date of Evaluation: 01/12/19 Time of Evaluation: 17:17 - Subjective Subjective: out of icu no diarhea today v poor apetite Objective - Vital Signs/Intake and Output Vital Signs (last 24 hours): Temp Pulse Resp BP Pulse Ox 97.7 F 110 H 20 149/91 H 97 01/12/19 08:13 01/12/19 08:13 01/12/19 08:13 01/12/19 08:13 01/12/19 08:13 Intake and Output: 01/12/19 01/12/19 06:59 18:59 Intake Total 954 816 Balance 954 816 - Medications Medications: Current Medications Amlodipine Besylate (Norvasc) 5 mg PO DAILY [facility] Last Admin: 01/12/19 17:13 Dose: 5 mg Famotidine (Pepcid) 20 mg PO DAILY [facility] Last Admin: 01/12/19 10:55 Dose: Not Given Home Med (Patient's Own Medication) 1 tab PO Q12H [facility] Last Admin: 01/12/19 05:41 Dose: 1 tab Metronidazole (Flagyl) 500 mg in 100 mls @ 100 mls/hr IVPB Q8H [facility]; Protocol Last Admin: 01/12/19 14:03 Dose: 100 mls/hr Fat Emulsion Intravenous (Intralipid 20%) 500 mls @ 42 mls/hr IV QOD [facility] Stop: 01/18/19 18:01 Last Admin: 01/11/19 18:28 Dose: 42 mls/hr Multivitamins/Vitamin C 10 ml/Chromium/Copper/Manganese/Zinc 1 ml/ Amino Acids 1,011 mls @ 42 mls/hr IV .Q24H [facility] Stop: 01/13/19 17:59 Potassium Chloride (Potassium Chloride 20 Meq/100 Ml) 20 meq in 100 mls @ 50 mls/hr IVPB ONCE [facility] Stop: 01/12/19 17:29 Last Admin: 01/12/19 16:15 Dose: 50 mls/hr Insulin Human Regular (Novolin R) 0 unit SC ACHS [facility]; Protocol Last Admin: 01/12/19 17:14 Dose: 3 units Metoprolol Succinate (Toprol Xl) 50 mg PO QPM [facility] Last Admin: 01/12/19 17:13 Dose: 50 mg Venlafaxine HCl (Effexor) 150 mg PO DAILY [facility] Last Admin: 01/12/19 10:55 Dose: Not Given - Labs Labs: 01/12/19 14:00 01/12/19 14:00 PT 13.7 SECONDS (9.7-12.2) H 01/07/19 05:59 INR 1.3 01/07/19 05:59 APTT 25 SECONDS (21-34) 01/07/19 05:59 - Constitutional Appears: Non-toxic - Head Exam Head Exam: ATRAUMATIC - Eye Exam Eye Exam: Normal appearance Pupil Exam: NORMAL ACCOMODATION - ENT Exam ENT Exam: Mucous Membranes Moist - Neck Exam Neck Exam: Full ROM - Respiratory Exam Respiratory Exam: Clear to Ausculation Bilateral - Cardiovascular Exam Cardiovascular Exam: REGULAR RHYTHM - GI/Abdominal Exam GI & Abdominal Exam: Distended - Extremities Exam Extremities Exam: Normal Capillary Refill - Back Exam Back Exam: NORMAL INSPECTION - Neurological Exam Neurological Exam: Alert, Awake, Oriented x3 - Psychiatric Exam Psychiatric exam: Normal Affect - Skin Skin Exam: Pallor Assessment and Plan - Assessment and Plan (Free Text) Assessment: membranous colitis depresion loss of apetite aneamis dm Plan: cont as per orders
[2019-01-12] MEDS ORDERED: PPN #2 IV ONE (18:00)
--- NOTE | 2019-01-13 01:19 | PN ---
DATE: 01/12/2019 SUBJECTIVE: The patient complains of abdominal discomfort. She denies any chest pain. PHYSICAL EXAMINATION: VITAL SIGNS: Blood pressure 149/91, heart rate 110, temperature 97.7, respirations 20. HEENT: Pale conjunctivae. CHEST: Clear. HEART: S1 and S2 regular. ABDOMEN: Soft. EXTREMITIES: Trace leg edema. LABORATORY DATA: Today's hemoglobin and hematocrit are 10.6 and 32.9. White count and platelet count are within normal limits. SMA-7: Sodium 136, potassium 3.3, chloride 110, CO2 of 22, glucose 211, BUN 6, creatinine 0.7. ASSESSMENT: 1. Uncontrolled hypertension. 2. History of paroxysmal atrial fibrillation. 3. Clostridium difficile colitis. 4. Mild anemia. 5. Hypokalemia. 6. Uncontrolled diabetes mellitus. 7. Hypomagnesemia. RECOMMENDATIONS: The patient is currently receiving IV magnesium sulfate replacement. Besides amino acid infusion, she is also receiving 20 mEq of IV potassium chloride replacement. Continue Toprol at 50 mg daily. IV Flagyl 500 mg every 8 hours. Start Norvasc 5 mg orally daily. Sukhdev Dave MD
[2019-01-13] MEDS: metroNIDAZOLE IV 500 mg/100 ml 500 MG/100 ML BAG IVPB SCH ×3 (05:58→21:22)
[2019-01-13] MEDS: DIFICID 200 MG PO SCH ×2 (06:00→18:01)
[2019-01-13] MEDS: (Novolin R) Insulin Human Regular 100 units/ml vial SC SCH ×4 (08:30→21:32)
--- NOTE | 2019-01-13 10:32 | CP.PCM.PN ---
Subjective - Date & Time of Evaluation Date of Evaluation: 01/13/19 Time of Evaluation: 10:29 - Subjective Subjective: pt has poor apetite doesnot want to eate no diarehea Objective - Vital Signs/Intake and Output Vital Signs (last 24 hours): Temp Pulse Resp BP Pulse Ox 97.2 F L 115 H 18 122/83 100 01/13/19 08:19 01/13/19 08:19 01/13/19 08:19 01/13/19 08:19 01/13/19 08:19 Intake and Output: 01/13/19 01/13/19 06:59 18:59 Intake Total 684 Output Total 450 Balance 234 - Medications Medications: Current Medications Amlodipine Besylate (Norvasc) 5 mg PO DAILY [facility] Last Admin: 01/12/19 17:13 Dose: 5 mg Famotidine (Pepcid) 20 mg PO DAILY [facility] Last Admin: 01/13/19 09:49 Dose: 20 mg Home Med (Patient's Own Medication) 1 tab PO Q12H [facility] Last Admin: 01/13/19 06:00 Dose: Not Given Metronidazole (Flagyl) 500 mg in 100 mls @ 100 mls/hr IVPB Q8H [facility]; Protocol Last Admin: 01/13/19 05:58 Dose: 100 mls/hr Multivitamins/Vitamin C 10 ml/Chromium/Copper/Manganese/Zinc 1 ml/ Amino Acids 1,011 mls @ 42 mls/hr IV .Q24H [facility] Stop: 01/13/19 17:59 Last Admin: 01/12/19 20:34 Dose: 42 mls/hr Fat Emulsion Intravenous (Intralipid 20%) 500 mls @ 42 mls/hr IV QOD@1800 [facility] Stop: 01/17/19 18:01 Insulin Human Regular (Novolin R) 0 unit SC ACHS [facility]; Protocol Last Admin: 01/12/19 21:55 Dose: Not Given Metoprolol Succinate (Toprol Xl) 50 mg PO QPM [facility] Last Admin: 01/12/19 17:13 Dose: 50 mg Venlafaxine HCl (Effexor) 150 mg PO DAILY [facility] Last Admin: 01/13/19 09:49 Dose: 150 mg - Labs Labs: 01/12/19 14:00 01/12/19 14:00 PT 13.7 SECONDS (9.7-12.2) H 01/07/19 05:59 INR 1.3 01/07/19 05:59 APTT 25 SECONDS (21-34) 01/07/19 05:59 - Constitutional Appears: Non-toxic - Head Exam Head Exam: ATRAUMATIC - Eye Exam Eye Exam: Normal appearance Pupil Exam: NORMAL ACCOMODATION - ENT Exam ENT Exam: Mucous Membranes Moist - Neck Exam Neck Exam: Full ROM - Respiratory Exam Respiratory Exam: Clear to Ausculation Bilateral - Cardiovascular Exam Cardiovascular Exam: REGULAR RHYTHM - GI/Abdominal Exam GI & Abdominal Exam: Distended, Normal Bowel Sounds - Exam Exam: NORMAL INSPECTION - Extremities Exam Extremities Exam: Normal Inspection - Neurological Exam Neurological Exam: Awake - Skin Skin Exam: Pallor Assessment and Plan - Assessment and Plan (Free Text) Assessment: membranous colitis generalised weekness depresion poor apetite Plan: start physical therapy
[2019-01-13 11:18] LABS: BASO % 0.4 % (0.0-2.0); EOS % 0.1 % (0.0-4.0); HEMOGLOBIN 10.9 g/dL (11.0-16.0); LYMPH # 2.7 K/uL (1.0-4.3); LYMPH % 42.8 % (20.0-40.0); MEAN CORPUSCULAR HEMOGLOBIN 26.8 pg (27.0-31.0); MEAN CORPUSCULAR HGB CONC 32.3 g/dL (33.0-37.0); MEAN PLATELET VOLUME 8.5 fL (7.2-11.7); MONO # 0.6 K/uL (0.0-0.8); MONO % 9.1 % (0.0-10.0); NEUT % 47.6 % (50.0-75.0); NRBC % 0.1 % (0.0-2.0); RBC 4.07 Mil/uL (3.80-5.20); RED CELL DISTRIBUTION WIDTH 21.2 % (11.5-14.5); WHITE BLOOD COUNT 6.3 K/uL (4.8-10.8)
[2019-01-13 11:45] LABS: ALB/GLOB RATIO 0.7 (1.0-2.1); ALBUMIN 2.3 g/dL (3.5-5.0); ALT/SGPT 20 U/L (9-52); AST/SGOT 24 U/L (14-36); BLOOD UREA NITROGEN 8 mg/dL (7-17); GFR NON-AFRICAN AMERICAN > 60
--- NOTE | 2019-01-13 12:36 | PN ---
DATE: 01/13/2019 SUBJECTIVE: The patient is seen. The patient is still marginally cooperative today. She is more verbal. She is still reluctant to take her medication, looks depressed. The patient is for possible subacute. Hopefully, her behavior will continue to improve. Psychwise, the patient is only taking Effexor at this time. Still has bouts of diarrhea. REVIEW OF SYSTEMS: The patient is sleepy but arousable, more verbal today, seen in her room. The patient is in isolation. PHYSICAL EXAMINATION: VITAL SIGNS: Temperature is 97.2, heart rate 115, blood pressure 122/83, respirations 18, and oxygen saturation is 100%. SKIN: No diaphoresis. HEENT: No headache, no dizziness. NECK: Supple. RESPIRATORY: No dyspnea. CARDIOVASCULAR: No chest pain. GASTROINTESTINAL: Still has diarrhea. EXTREMITIES: The patient moving extremities. MUSCULOSKELETAL: Feels weak. NEUROLOGIC: Alert, oriented x3 although marginally cooperative. GENITOURINARY: No urinary problems. MENTAL STATUS EXAMINATION: An elderly female, who looks stated age, seen in her room. Mood is dysphoric. Affect is restricted. Speech is slow. Thought process, coherent. Thought content, no psychosis. No suicidal or homicidal ideation. The patient still reluctant to take her meds and eat. Attention and memory seems to be limited. Insight and judgment limited. Impulse control is fair at this time. IMPRESSION: Recurrent depression and anxiety. Colitis. PLAN AND RECOMMENDATIONS: The patient is seen. Medications reviewed. Continue present management. We encouraged the patient to take her meds and eat. If the patient's mental status will improve, we will refer her for subacute rehabilitation. If deteriorates, we will refer her to [facility]. Alexandre Kumrai MD
--- NOTE | 2019-01-13 13:30 | CP.PCM.PN ---
Subjective - Date & Time of Evaluation Date of Evaluation: 01/13/19 Time of Evaluation: 13:29 - Subjective Subjective: Diarrhea improving + failure to thrive, not eating Objective - Vital Signs/Intake and Output Vital Signs (last 24 hours): Temp Pulse Resp BP Pulse Ox 97.2 F L 115 H 18 122/83 100 01/13/19 08:19 01/13/19 08:19 01/13/19 08:19 01/13/19 08:19 01/13/19 08:19 Intake and Output: 01/13/19 01/13/19 06:59 18:59 Intake Total 684 Output Total 450 Balance 234 - Medications Medications: Current Medications Amlodipine Besylate (Norvasc) 5 mg PO DAILY [facility] Last Admin: 01/13/19 09:49 Dose: Not Given Famotidine (Pepcid) 20 mg PO DAILY [facility] Last Admin: 01/13/19 09:49 Dose: 20 mg Home Med (Patient's Own Medication) 1 tab PO Q12H [facility] Last Admin: 01/13/19 06:00 Dose: Not Given Metronidazole (Flagyl) 500 mg in 100 mls @ 100 mls/hr IVPB Q8H [facility]; Protocol Last Admin: 01/13/19 13:06 Dose: 100 mls/hr Multivitamins/Vitamin C 10 ml/Chromium/Copper/Manganese/Zinc 1 ml/ Amino Acids 1,011 mls @ 42 mls/hr IV .Q24H ONE Stop: 01/13/19 17:59 Last Admin: 01/12/19 20:34 Dose: 42 mls/hr Fat Emulsion Intravenous (Intralipid 20%) 500 mls @ 42 mls/hr IV QOD@1800 [facility] Stop: 01/17/19 18:01 Multivitamins/Vitamin C 10 ml/Chromium/Copper/Manganese/Zinc 1 ml/ Amino Acids 1,011 mls @ 42 mls/hr IV .Q24H ONE Stop: 01/14/19 17:59 Insulin Human Regular (Novolin R) 0 unit SC ACHS [facility]; Protocol Last Admin: 01/13/19 12:30 Dose: 2 units Metoprolol Succinate (Toprol Xl) 50 mg PO QPM [facility] Last Admin: 01/12/19 17:13 Dose: 50 mg Venlafaxine HCl (Effexor) 150 mg PO DAILY [facility] Last Admin: 01/13/19 09:49 Dose: 150 mg - Labs Labs: 01/13/19 11:06 01/13/19 11:06 PT 13.7 SECONDS (9.7-12.2) H 01/07/19 05:59 INR 1.3 01/07/19 05:59 APTT 25 SECONDS (21-34) 01/07/19 05:59 - Constitutional Appears: Chronically Ill Assessment and Plan (1) Clostridium difficile colitis Assessment & Plan: continue medical management Status: Acute
--- NOTE | 2019-01-13 14:02 | CP.PCM.PN ---
Subjective - Date & Time of Evaluation Date of Evaluation: 01/13/19 Time of Evaluation: 14:01 - Subjective Subjective: Nephrology Consultation Note: Assessment: stable Acute Kidney Injury (N17.9) likely due to ATN due to sepsis, IV contrast : resolved C.Diff colitis, hagma with respi compensation, hyponatremia hypocalcemia nagma Diabetic chronic Kidney Disease (E11.22) Hypertensive Chronic Kidney Disease (I12.9) Chronic Kidney Disease (N18.3) Stage 3 with ? mg proteinuria (R80.9) Anemia (D64.9) hx of dig toxicity, A fib, CVA, hypothyroidism left adrenal nodule Plan Hypertension control with meds as ordered. Maintain hemodynamics stable. Avoid hypotension. Patient not on ACEI/ARB due to recent LOUIE, can add if needed for elevated BP. increased toprol XL to 50 mg/d started on norvasc by cardiology Monitor Input/Output, daily weights and renal function with basic metabolic panel supplement lytes as needed sodium bicarb 650 bid lowered lasix prn can be given pt on parenteral nutritional support left adrenal nodule work up as outpt Dose meds/antibiotics for GFR >60. Glycemic control Further work up/management as per primary team Thanks for allowing me to participate in care of your patient. please call if any Qs. had d/w team Dr Raghu Solis Office: [phone] Chief Complaint; pain abdomen Reason for consult: Acute Kidney Injury HPI: Pt is a 73 F with hx of diabetes Mellitus ( years), hypertension (years) CKD 3 with baseline cr 1.2-1.4, hx of dig toxicity, A fib, CVA, hypothyroidism presented with complaints of pain abdomen and being managed for sepsis, colitis, transferred to ICU Denies OTC/herbal meds or NSAIDs Noted recent iodinated contrast exposure. Noted obvious episodes of low BP (99/61). pt not aware about kidney disease in past ROS: pt lying comfortably no new complaints denies cp/sob Physical Examination: General Appearance: comfortable, in no acute respiratory distress, co-operative . well appearing Vitals reviewed and noted as below Head; Atraumatic, normocephalic ENT: no ulcers no thrush. Tongue is midline. Oropharynx: no rash or ulcers. EYES: Pupils are equal, round and reactive to light accommodation. Eye muscles and extraocular movement intact. Sclera is anicteric. Neck; supple no lymphadenopathy, no thyromegaly or bruit Lungs: Normal respiratory rate/effort. Breath sounds bilateral clerarer Heart: normal rate. s1s2 normal. No rub or gallop. Extremities: trace edema. No varicose veins Neurological: Patient is lying comfortably awake alert follow commands Skin: Warm and dry. Normal turgor. No rash. Palpitation: Normal elasticity for age Abdomen: Abdomen is soft. Bowel sounds +. There is upper abdominal tenderness, no guarding/rigidity no organomegaly Psych: deferred MSK: no joint tenderness or swelling. Digits and nails normal, no deformity : kidney or bladder not palpable Labs/imaging reviewed. Past medical history, past surgical history, family history, social history, allergy reviewed and noted as below Family hx: no hx of CKD. Rest non-contributory Objective - Vital Signs/Intake and Output Vital Signs (last 24 hours): Temp Pulse Resp BP Pulse Ox 97.2 F L 115 H 18 122/83 100 01/13/19 08:19 01/13/19 08:19 01/13/19 08:19 01/13/19 08:19 01/13/19 08:19 Intake and Output: 01/13/19 01/13/19 06:59 18:59 Intake Total 684 Output Total 450 Balance 234 - Medications Medications: Current Medications Amlodipine Besylate (Norvasc) 5 mg PO DAILY [facility] Last Admin: 01/13/19 09:49 Dose: Not Given Famotidine (Pepcid) 20 mg PO DAILY [facility] Last Admin: 01/13/19 09:49 Dose: 20 mg Home Med (Patient's Own Medication) 1 tab PO Q12H [facility] Last Admin: 01/13/19 06:00 Dose: Not Given Metronidazole (Flagyl) 500 mg in 100 mls @ 100 mls/hr IVPB Q8H [facility]; Protocol Last Admin: 01/13/19 13:06 Dose: 100 mls/hr Multivitamins/Vitamin C 10 ml/Chromium/Copper/Manganese/Zinc 1 ml/ Amino Acids 1,011 mls @ 42 mls/hr IV .Q24H ONE Stop: 01/13/19 17:59 Last Admin: 01/12/19 20:34 Dose: 42 mls/hr Fat Emulsion Intravenous (Intralipid 20%) 500 mls @ 42 mls/hr IV QOD@1800 [facility] Stop: 01/17/19 18:01 Multivitamins/Vitamin C 10 ml/Chromium/Copper/Manganese/Zinc 1 ml/ Amino Acids 1,011 mls @ 42 mls/hr IV .Q24H ONE Stop: 01/14/19 17:59 Insulin Human Regular (Novolin R) 0 unit SC ACHS [facility]; Protocol Last Admin: 01/13/19 12:30 Dose: 2 units Metoprolol Succinate (Toprol Xl) 50 mg PO QPM [facility] Last Admin: 01/12/19 17:13 Dose: 50 mg Venlafaxine HCl (Effexor) 150 mg PO DAILY [facility] Last Admin: 01/13/19 09:49 Dose: 150 mg - Labs Labs: 01/13/19 11:06 01/13/19 11:06 PT 13.7 SECONDS (9.7-12.2) H 01/07/19 05:59 INR 1.3 01/07/19 05:59 APTT 25 SECONDS (21-34) 01/07/19 05:59
[2019-01-13] MEDS ORDERED: Fat Emulsion 20% IV 500 ML IV SCH (18:00)
[2019-01-13] MEDS ORDERED: PPN #3 IV ONE (18:00)
[2019-01-13] MEDS: Metoprolol Succinate 50 mg XL Tab PO SCH (18:02)
--- NOTE | 2019-01-13 19:54 | PN ---
DATE: 01/13/2019 SUBJECTIVE: The patient complains of generalized pain and no specific chest pain and no dizziness. PHYSICAL EXAMINATION: VITAL SIGNS: Blood pressure 122/83, heart rate 115, temperature 97.2, respirations 18. HEENT: Pale conjunctivae. CHEST: Diminished breath sounds over the bases. HEART: S1 and S2 regular. ABDOMEN: Soft. EXTREMITIES: 1+ pitting edema. LABORATORY DATA: Hemoglobin and hematocrit are 10.9 and 33.8. White count and platelet count are within normal limits. SMA-7: Sodium 130, potassium 3.6, chloride 109, CO2 of 22, glucose 173, BUN 8, creatinine 0.6. ASSESSMENT: 1. Dehydration and physiologic sinus tachycardia. 2. Pseudomembranous colitis. 3. Uncontrolled diabetes mellitus. 4. Improved hypokalemia. 5. Depression. 6. Hypertension. 7. Paroxysmal atrial fibrillation. RECOMMENDATIONS: Continue Norvasc 5 mg once a day, Lasix 20 mg once a day, Toprol-XL at 50 mg once a day. Continue . Continue IV Flagyl 500 mg every 8 hours. Case was discussed with the patient's brother. Conservative medical approach. Sukhdev Dave MD
[2019-01-14] MEDS: DIFICID 200 MG PO SCH ×2 (05:31→17:34)
[2019-01-14] MEDS: metroNIDAZOLE IV 500 mg/100 ml 500 MG/100 ML BAG IVPB SCH ×3 (05:32→21:34)
--- NOTE | 2019-01-14 07:17 | PCM.RRT ---
<Bekah Diaz - Last Filed: 01/14/19 07:23> POLICE [employer]ROL OFFICER Nurses Assessment - Situation Date: 01/14/19 Time POLICE PATROL OFFICER was called: 07:12 POLICE PATROL OFFICER Responder Arrival Time:: 07:13 [employer]ICE [employer]ROL OFFICER Location:: Med/Surg Room Number: 554P [employer] OFFICER Reason for Call: Tachycardia [employer]ICE [employer]ROL OFFICER Called By: RN - IV IV Inserted during POLICE PATROL OFFICER?: No - Respiratory [employer]ICE [employer]OL OFFICER Delivery Method: Nasal Cannula @L/min (2) Oxygen Flow Rate: 2 Received Nebulizer Treatments: No Was the Patient Ventilated with Bag/Mask 100% O2?: No Secretions Suctioned?: No Was the Patient Intubated?: No Was the Patient Placed on a Ventilator?: No - Medication Medications Administered During POLICE [employer]ROL OFFICER: Digoxin 0.25 mg IVP, Lasix 20 mg IVP - Diagnostic Test Ordered EKG: Yes Chest X-Ray: Yes CT Scan: Yes (CTA chest) - Stat Labs Ordered [employer] OFFICER Stat Labs Ordered: CBC, BMP, TROPONIN, BLOOD C&S X2 CPR started during POLICE PATROL OFFICER?: No - Vital Signs Vital Signs: HR 180 BP 112/74 RR 35 spO2 99% - [place] Coma Scale Coma Scale Eye Opening: Spontaneous Coma Scale Motor: Obeys Commands Movement Coma Scale Verbal: Oriented Coma Scale Total: 15 - Time POLICE PATROL OFFICER Ended Time POLICE [employer]ROL OFFICER Ended: 08:00 - Vital Signs at end of POLICE [employer]ROL OFFICER Vital Signs at end of POLICE [employer]ROL OFFICER: HR 84 BP 120/60 RR 18 spO2 99% - Recommendations 5) POLICE [employer] OFFICER Level of Care Recommendations: Transfer to Telemetry Notifications: Attending Physician I.Reason for POLICE [employer]ROL OFFICER - A) Acute Change in Patient: (Select all that apply): Acute change in heart rate less than 50 or greater than 120 Subjective: RN called POLICE [employer]ROL OFFICER for tachycardia and inability to get BP reading. Patient was alert. At baseline, she is slow to respond verbally. Patient denies any complaints, denies pain. She is just asking for water. She does not appear distressed. BP is measured shortly after POLICE [employer]ROL OFFICER called (112/74). Nursing reports that patient has been refusing to eat and refusing some medications or only willing to take them at certain times. She is on PPN. Patient is on PO metoprolol at night for rate control. She required a stat dose of metoprolol over night for tachycardia >150. Crackles heard on exam. CXR showed congestion. Lasix given. Digoxin and Cardizem given for HR. HR improved to 80s. Stat CTA chest to evaluate for PE as patient is noted to be off anticoagulation (Eliquis) since 01/04- suspect due to bloody diarrhea. - Neurological Status (Select all that apply): Alert, Responsive, Oriented, Verbal, Follows Commands - Respiratory Oxygen Delivery Method: Nasal Cannula @L/min (2) Oxygen Flow Rate: 2 - Constitutional Appears: No Acute Distress - Head Head Exam: ATRAUMATIC, NORMAL INSPECTION - Eyes Eye Exam: EOMI, Normal appearance - Respiratory Exam Respiratory Exam: Rales, NORMAL BREATHING PATTERN. absent: Respiratory Distress - Cardiovascular Exam Cardiovascular Exam: Tachycardia - GI/Abdominal Exam GI & Abdominal Exam: Soft. absent: Tenderness - Neurological Exam Neurological Exam: Alert, Awake, Oriented x3 - Extremities Exam Extremities Exam: Normal Inspection Plan - Assessment of Findings&Treatment Plan Patient is a 73 year old female with history of CHF, Afib, CKD, CVA, hypothyroidism admitted for sepsis, abdominal pain/diarrhea, and high digoxin level. Patient spent a prolonged time in the ICU. She has C. diff. Plan: - Stat EKG - Stat CXR - Stat CBC, CMP, Mg, Ph - Stat GRACE - Stat blood cultures - Stat CTA chest - Admin PM metoprolol 50 mg PO early - Stat Digoxin 0.25 mg IVP - Stat Lasix 20 mg IVP - Stat Cardizem 8 mg IVP (BP 120/60, HR 70s-80s after administration) - Hold Norvasc - Hold PPN - Transfer to telemetry <Kelvin Franz - Last Filed: 01/14/19 16:49> [employer]OL OFFICER Nurses Assessment - Vital Signs Vital Signs: Rapid Response Vital Sign Blood Pressure 112/74 Pulse Rate 180 Respiratory Rate 35 Oxygen Saturation 98 - Vital Signs at end of POLICE [employer]OL OFFICER Vital Signs at end of POLICE [employer]ROL OFFICER: Rapid Response End Vital Sign Blood Pressure 120/60 Pulse Rate 84 Respiratory Rate 18 O2 Sat by Pulse Oximetry 99 Attending/Attestation - Attestation I have personally seen and examined this patient.: Yes I have fully participated in the care of the patient.: Yes I have reviewed all pertinent clinical information, including history, physical exam and plan: Yes
[2019-01-14] MEDS: (Novolin R) Insulin Human Regular 100 units/ml vial SC SCH ×4 (07:30→21:49)
[2019-01-14] MEDS ORDERED: Digoxin 500 mcg/2ml (0.5 mg/2ml) Inj IVP ONE (07:31)
[2019-01-14 09:09] LABS: BASO % 0.3 % (0.0-2.0); HEMOGLOBIN 10.1 g/dL (11.0-16.0); LYMPH # 2.3 K/uL (1.0-4.3); LYMPH % 16.1 % (20.0-40.0); MEAN CELL VOLUME 83.5 fL (81.0-99.0); MEAN CORPUSCULAR HEMOGLOBIN 25.9 pg (27.0-31.0); MEAN CORPUSCULAR HGB CONC 31.1 g/dL (33.0-37.0); MEAN PLATELET VOLUME 8.3 fL (7.2-11.7); MONO # 0.7 K/uL (0.0-0.8); MONO % 4.5 % (0.0-10.0); NEUT # 11.5 K/uL (1.8-7.0); NEUT % 79.1 % (50.0-75.0); NRBC % 0.1 % (0.0-2.0); RBC 3.91 Mil/uL (3.80-5.20); RED CELL DISTRIBUTION WIDTH 21.4 % (11.5-14.5)
[2019-01-14 09:10] LABS: WHITE BLOOD COUNT 14.5 K/uL (4.8-10.8)
[2019-01-14 09:47] LABS: ALB/GLOB RATIO 1.1 (1.0-2.1); ALT/SGPT 19 U/L (9-52); AST/SGOT 19 U/L (14-36); BLOOD UREA NITROGEN 13 mg/dL (7-17); CALCIUM 8.5 mg/dl (8.6-10.4); GFR NON-AFRICAN AMERICAN > 60
--- NOTE | 2019-01-14 10:05 | CT ---
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 TECHNIQUE: Axial computed tomography images were obtained of the chest in the pulmonary arterial phase of enhancement. Coronal and sagittal reformatted images were created and reviewed. Intravenous contrast dose: 100 mL Visipaque 320 Radiation dose: Total exam DLP = 512.59 mGy-cm. This CT exam was performed using one or more of the following dose reduction techniques: Automated exposure control, adjustment of the mA and/or kV according to patient size, and/or use of iterative reconstruction technique. FINDINGS: PULMONARY ARTERIES: Unremarkable. No pulmonary embolism. AORTA: No acute findings. No thoracic aortic aneurysm. There is atherosclerotic calcification of the thoracic aorta. LUNGS: Bilateral lower lobe linear scar/atelectasis. . PLEURAL SPACES: Small bilateral pleural effusion. HEART: Unremarkable. No cardiomegaly. No significant pericardial effusion. LYMPH NODES: No lymphadenopathy.1.3 cm nodule in the thyroid isthmus. Correlate with thyroid ultrasound examination. BONES, CHEST WALL: Old healed fractures right 4th, 5th and 6th ribs posteriorly. No acute fracture. OTHER FINDINGS: Unremarkable. IMPRESSION: No evidence of pulmonary embolism. Small bilateral pleural effusion. Bilateral lower lobe linear scar/atelectasis. Incidental 1.3 cm thyroid nodule. Correlate with thyroid ultrasound examination.
--- NOTE | 2019-01-14 10:41 | CP.PCM.PN ---
Subjective - Date & Time of Evaluation Date of Evaluation: 01/14/19 Time of Evaluation: 10:40 - Subjective Subjective: Rapid response was called this morning for tachycardia, A fib with rapid ventricular response. She was treated with IV digoxin, furosemide and diltiazem. At present, patient denies having nausea, vomiting, abdominal pain. A rectal tube remains in place with loose stool in the collection bag. Objective - Vital Signs/Intake and Output Vital Signs (last 24 hours): Temp Pulse Resp BP Pulse Ox 98.9 F 86 20 120/60 98 01/14/19 07:55 01/14/19 07:58 01/14/19 07:55 01/14/19 07:58 01/14/19 07:58 Intake and Output: 01/14/19 01/14/19 06:59 18:59 Intake Total 168 Output Total 250 Balance -82 - Medications Medications: Current Medications Amlodipine Besylate (Norvasc) 5 mg PO DAILY [facility] Last Admin: 01/13/19 09:49 Dose: Not Given Famotidine (Pepcid) 20 mg PO DAILY [facility] Last Admin: 01/13/19 09:49 Dose: 20 mg Home Med (Patient's Own Medication) 1 tab PO Q12H [facility] Last Admin: 01/14/19 05:31 Dose: 1 tab Metronidazole (Flagyl) 500 mg in 100 mls @ 100 mls/hr IVPB Q8H [facility]; Protocol Last Admin: 01/14/19 05:32 Dose: 100 mls/hr Fat Emulsion Intravenous (Intralipid 20%) 500 mls @ 42 mls/hr IV QOD@1800 [facility] Stop: 01/17/19 18:01 Last Admin: 01/13/19 18:03 Dose: 42 mls/hr Multivitamins/Vitamin C 10 ml/Chromium/Copper/Manganese/Zinc 1 ml/ Amino Acids 1,011 mls @ 42 mls/hr IV .Q24H ONE Stop: 01/14/19 17:59 Last Admin: 01/13/19 18:04 Dose: 42 mls/hr Insulin Human Regular (Novolin R) 0 unit SC ACHS [facility]; Protocol Last Admin: 01/13/19 21:32 Dose: Not Given Metoprolol Succinate (Toprol Xl) 50 mg PO QPM [facility] Last Admin: 01/13/19 18:02 Dose: 50 mg Venlafaxine HCl (Effexor) 150 mg PO DAILY [facility] Last Admin: 01/13/19 09:49 Dose: 150 mg - Labs Labs: 01/14/19 09:05 01/14/19 09:05 PT 13.7 SECONDS (9.7-12.2) H 01/07/19 05:59 INR 1.3 01/07/19 05:59 APTT 25 SECONDS (21-34) 01/07/19 05:59 - Constitutional Appears: No Acute Distress - Head Exam Head Exam: ATRAUMATIC, NORMOCEPHALIC - Eye Exam Eye Exam: EOMI, PERRL - Neck Exam Neck Exam: absent: Lymphadenopathy, Thyromegaly - Respiratory Exam Respiratory Exam: NORMAL BREATHING PATTERN. absent: Rales, Rhonchi, Wheezes - Cardiovascular Exam Cardiovascular Exam: Irregular Rhythm, +S1, +S2. absent: Gallop, Rubs, Murmur - GI/Abdominal Exam GI & Abdominal Exam: Distended, Soft, Normal Bowel Sounds. absent: Tenderness, Mass, Organomegaly - Rectal Exam Rectal Exam: Deferred - Extremities Exam Extremities Exam: absent: Calf Tenderness, Pedal Edema Assessment and Plan (1) Clostridium difficile colitis Assessment & Plan: Patient continues to pass loose stool and currently has a rectal tube in place. WBC count is up to 14,500 today. Continue metronidazole. Status: Acute
--- NOTE | 2019-01-14 11:21 | CP.PCM.PN ---
Subjective - Date & Time of Evaluation Date of Evaluation: 01/14/19 Time of Evaluation: 11:19 - Subjective Subjective: pt had rapid response but now is beter has ct chest bilatral pleural efusion wbc is up today no diarhea Objective - Vital Signs/Intake and Output Vital Signs (last 24 hours): Temp Pulse Resp BP Pulse Ox 98.9 F 86 20 120/60 98 01/14/19 07:55 01/14/19 07:58 01/14/19 07:55 01/14/19 07:58 01/14/19 07:58 Intake and Output: 01/14/19 01/14/19 06:59 18:59 Intake Total 168 Output Total 250 Balance -82 - Medications Medications: Current Medications Amlodipine Besylate (Norvasc) 5 mg PO DAILY [facility] Last Admin: 01/13/19 09:49 Dose: Not Given Famotidine (Pepcid) 20 mg PO DAILY [facility] Last Admin: 01/14/19 10:53 Dose: 20 mg Home Med (Patient's Own Medication) 1 tab PO Q12H [facility] Last Admin: 01/14/19 05:31 Dose: 1 tab Metronidazole (Flagyl) 500 mg in 100 mls @ 100 mls/hr IVPB Q8H [facility]; Protocol Last Admin: 01/14/19 05:32 Dose: 100 mls/hr Fat Emulsion Intravenous (Intralipid 20%) 500 mls @ 42 mls/hr IV QOD@1800 [facility] Stop: 01/17/19 18:01 Last Admin: 01/13/19 18:03 Dose: 42 mls/hr Multivitamins/Vitamin C 10 ml/Chromium/Copper/Manganese/Zinc 1 ml/ Amino Acids 1,011 mls @ 42 mls/hr IV .Q24H ONE Stop: 01/14/19 17:59 Last Admin: 01/13/19 18:04 Dose: 42 mls/hr Insulin Human Regular (Novolin R) 0 unit SC ACHS [facility]; Protocol Last Admin: 01/14/19 07:30 Dose: Not Given Metoprolol Succinate (Toprol Xl) 50 mg PO QPM [facility] Last Admin: 01/13/19 18:02 Dose: 50 mg Venlafaxine HCl (Effexor) 150 mg PO DAILY [facility] Last Admin: 01/13/19 09:49 Dose: 150 mg - Labs Labs: 01/14/19 09:05 01/14/19 09:05 PT 13.7 SECONDS (9.7-12.2) H 01/07/19 05:59 INR 1.3 01/07/19 05:59 APTT 25 SECONDS (21-34) 01/07/19 05:59 - Constitutional Appears: Non-toxic - Head Exam Head Exam: ATRAUMATIC - Eye Exam Eye Exam: Normal appearance Pupil Exam: NORMAL ACCOMODATION - ENT Exam ENT Exam: Normal Exam - Neck Exam Neck Exam: Full ROM - Respiratory Exam Respiratory Exam: Decreased Breath Sounds - Cardiovascular Exam Cardiovascular Exam: REGULAR RHYTHM - GI/Abdominal Exam GI & Abdominal Exam: Distended - Exam Exam: NORMAL INSPECTION - Extremities Exam Extremities Exam: Normal Inspection - Back Exam Back Exam: NORMAL INSPECTION - Neurological Exam Neurological Exam: Awake, Oriented x3 - Psychiatric Exam Psychiatric exam: Depressed - Skin Skin Exam: Pallor Assessment and Plan - Assessment and Plan (Free Text) Assessment: membranous colitis lecocytosis depression aneamia bilateral pleural efusion poor apetite on hyperelementation Plan: as ordered
--- NOTE | 2019-01-14 12:36 | CP.PCM.PN ---
Subjective - Date & Time of Evaluation Date of Evaluation: 01/14/19 Time of Evaluation: 12:35 - Subjective Subjective: Nephrology Consultation Note: Assessment: stable Acute Kidney Injury (N17.9) likely due to ATN due to sepsis, IV contrast : resolved C.Diff colitis, hagma with respi compensation, hyponatremia hypocalcemia nagma Diabetic chronic Kidney Disease (E11.22) Hypertensive Chronic Kidney Disease (I12.9) Chronic Kidney Disease (N18.3) Stage 3 with ? mg proteinuria (R80.9) Anemia (D64.9) hx of dig toxicity, A fib, CVA, hypothyroidism left adrenal nodule Plan f/u CT angio - will monitor to make sure no LOUIE post renal function otherwise stable monitor bp/hr lytes stable sodium bicarb 650 bid lowered lasix prn can be given left adrenal nodule work up as outpt S: seen and examined, s/p rapid response for AFib w/ rvr and ct angio Physical Examination: General Appearance: comfortable, in no acute respiratory distress, co-operative . well appearing Vitals reviewed and noted as below Head; Atraumatic, normocephalic ENT: no ulcers no thrush. Tongue is midline. Oropharynx: no rash or ulcers. EYES: Pupils are equal, round and reactive to light accommodation. Eye muscles and extraocular movement intact. Sclera is anicteric. Neck; supple no lymphadenopathy, no thyromegaly or bruit Lungs: Normal respiratory rate/effort. Breath sounds bilateral clerarer Heart: s1s2 normal. No rub or gallop. Extremities: trace edema. No varicose veins Neurological: Patient is lying comfortably awake alert follow commands Skin: Warm and dry. Normal turgor. No rash. Palpitation: Normal elasticity for age Abdomen: Abdomen is soft. Bowel sounds +. There is upper abdominal tenderness, no guarding/rigidity no organomegaly Psych: deferred MSK: no joint tenderness or swelling. Digits and nails normal, no deformity : kidney or bladder not palpable Labs/imaging reviewed. Past medical history, past surgical history, family history, social history, allergy reviewed and noted as below Family hx: no hx of CKD. Rest non-contributory Objective - Vital Signs/Intake and Output Vital Signs (last 24 hours): Temp Pulse Resp BP Pulse Ox 98.9 F 87 20 120/60 98 01/14/19 07:55 01/14/19 08:30 01/14/19 07:55 01/14/19 07:58 01/14/19 07:58 Intake and Output: 01/14/19 01/14/19 06:59 18:59 Intake Total 168 Output Total 250 Balance -82 - Medications Medications: Current Medications Amlodipine Besylate (Norvasc) 5 mg PO DAILY [facility] Last Admin: 01/13/19 09:49 Dose: Not Given Famotidine (Pepcid) 20 mg PO DAILY [facility] Last Admin: 01/14/19 10:53 Dose: 20 mg Home Med (Patient's Own Medication) 1 tab PO Q12H [facility] Last Admin: 01/14/19 05:31 Dose: 1 tab Metronidazole (Flagyl) 500 mg in 100 mls @ 100 mls/hr IVPB Q8H [facility]; Protocol Last Admin: 01/14/19 05:32 Dose: 100 mls/hr Fat Emulsion Intravenous (Intralipid 20%) 500 mls @ 42 mls/hr IV QOD@1800 [facility] Stop: 01/17/19 18:01 Last Admin: 01/13/19 18:03 Dose: 42 mls/hr Multivitamins/Vitamin C 10 ml/Chromium/Copper/Manganese/Zinc 1 ml/ Amino Acids 1,011 mls @ 42 mls/hr IV .Q24H ONE Stop: 01/14/19 17:59 Last Admin: 01/13/19 18:04 Dose: 42 mls/hr Multivitamins/Vitamin C 10 ml/Chromium/Copper/Manganese/Zinc 1 ml/ Amino Acids 1,011 mls @ 42 mls/hr IV .Q24H ONE Stop: 01/15/19 17:59 Multivitamins/Vitamin C 10 ml/Chromium/Copper/Manganese/Zinc 1 ml/ Amino Acids 1,011 mls @ 42 mls/hr IV .Q24H ONE Stop: 01/17/19 17:59 Insulin Human Regular (Novolin R) 0 unit SC [facility]; Protocol Last Admin: 01/14/19 07:30 Dose: Not Given Metoprolol Succinate (Toprol Xl) 50 mg PO QPM [facility] Last Admin: 01/13/19 18:02 Dose: 50 mg Venlafaxine HCl (Effexor) 150 mg PO DAILY [facility] Last Admin: 03/23/19 11:35 Dose: 150 mg - Labs Labs: 01/14/19 09:05 01/14/19 09:05 PT 13.7 SECONDS (9.7-12.2) H 01/07/19 05:59 INR 1.3 01/07/19 05:59 APTT 25 SECONDS (21-34) 01/07/19 05:59
--- NOTE | 2019-01-14 16:05 | CP.PCM.PN ---
Subjective - Date & Time of Evaluation Date of Evaluation: 01/13/19 Time of Evaluation: 09:00 - Subjective Subjective: diarrhea less not eating Objective - Vital Signs/Intake and Output Vital Signs (last 24 hours): Temp Pulse Resp BP Pulse Ox 98.1 F 133 H 20 124/73 95 01/13/19 15:58 01/13/19 15:58 01/13/19 15:58 01/13/19 15:58 01/13/19 15:58 Intake and Output: 01/13/19 01/14/19 18:59 06:59 Intake Total 356 Balance 356 - Medications Medications: Current Medications Amlodipine Besylate (Norvasc) 5 mg PO DAILY [facility] Last Admin: 01/13/19 09:49 Dose: Not Given Famotidine (Pepcid) 20 mg PO DAILY [facility] Last Admin: 01/13/19 09:49 Dose: 20 mg Home Med (Patient's Own Medication) 1 tab PO Q12H [facility] Last Admin: 01/13/19 18:01 Dose: 1 tab Metronidazole (Flagyl) 500 mg in 100 mls @ 100 mls/hr IVPB Q8H [facility]; Protocol Last Admin: 01/13/19 13:06 Dose: 100 mls/hr Fat Emulsion Intravenous (Intralipid 20%) 500 mls @ 42 mls/hr IV QOD@1800 [facility] Stop: 01/17/19 18:01 Last Admin: 01/13/19 18:03 Dose: 42 mls/hr Multivitamins/Vitamin C 10 ml/Chromium/Copper/Manganese/Zinc 1 ml/ Amino Acids 1,011 mls @ 42 mls/hr IV .Q24H ONE Stop: 01/14/19 17:59 Last Admin: 01/13/19 18:04 Dose: 42 mls/hr Insulin Human Regular (Novolin R) 0 unit SC ACHS [facility]; Protocol Last Admin: 01/13/19 18:02 Dose: 4 units Metoprolol Succinate (Toprol Xl) 50 mg PO QPM [facility] Last Admin: 01/13/19 18:02 Dose: 50 mg Venlafaxine HCl (Effexor) 150 mg PO DAILY [facility] Last Admin: 01/13/19 09:49 Dose: 150 mg - Labs Labs: 01/13/19 11:06 01/13/19 11:06 PT 13.7 SECONDS (9.7-12.2) H 01/07/19 05:59 INR 1.3 01/07/19 05:59 APTT 25 SECONDS (21-34) 01/07/19 05:59 - Constitutional Appears: No Acute Distress, Cachectic, Chronically Ill - Head Exam Head Exam: NORMOCEPHALIC - Eye Exam Eye Exam: absent: Scleral icterus - ENT Exam ENT Exam: Mucous Membranes Dry - Neck Exam Neck Exam: absent: Lymphadenopathy - Respiratory Exam Respiratory Exam: Decreased Breath Sounds - Cardiovascular Exam Cardiovascular Exam: REGULAR RHYTHM - GI/Abdominal Exam GI & Abdominal Exam: Distended, Soft - Rectal Exam Rectal Exam: Deferred - Exam Exam: NORMAL INSPECTION - Extremities Exam Extremities Exam: Pedal Edema Assessment and Plan (1) Abdominal pain Status: Acute (2) Colitis Status: Acute (3) Sepsis Status: Acute (4) Depressed Status: Acute (5) Renal insufficiency Status: Acute (6) Change in mental status Status: Chronic (7) Dementia Status: Chronic (8) LOUIE (acute kidney injury) Status: Resolved (9) Atrial fibrillation with RVR Status: Resolved (10) Congestive cardiac failure Status: Resolved (11) Renal insufficiency Status: Resolved (12) CVA (cerebral vascular accident) Status: Ruled-out (13) Seizures Status: Ruled-out - Assessment and Plan (Free Text) Assessment: cont difcid/ iv flagyl
--- NOTE | 2019-01-14 16:51 | RAD ---
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 FINDINGS: LUNGS: No active pulmonary disease. PLEURA: No significant pleural effusion identified, no pneumothorax apparent. CARDIOVASCULAR: No aortic atherosclerotic calcification present. Normal cardiac size. No pulmonary vascular congestion. OSSEOUS STRUCTURES: No significant abnormalities. VISUALIZED UPPER ABDOMEN: Normal. OTHER FINDINGS: None. IMPRESSION: No active disease.
[2019-01-14] MEDS: Metoprolol Succinate 50 mg XL Tab PO SCH (17:34)
[2019-01-14] MEDS ORDERED: PPN #4 IV ONE (18:00)
[2019-01-14] MEDS: Enoxaparin 40 mg Syringe SC SCH (18:29)
--- NOTE | 2019-01-14 20:41 | PN ---
DATE: 01/14/2019 SUBJECTIVE: The patient is seen. The patient had rapid response called earlier because of her tachycardia, but now the patient is doing much better. She is more verbal, seen with family members. The family members state she is still not eating, but seems to be more receptive to eat today. The patient still reluctant to eat and take her meds. REVIEW OF SYSTEMS: GENERAL: The patient is alert and oriented x3, more verbal today, seen with her family, still refusing to eat. Blood pressure is much improved. Heart rate is much improved. SKIN: No diaphoresis. HEENT: No headache, no dizziness. NECK: Supple. RESPIRATORY: No dyspnea. CARDIOVASCULAR: No chest pain. GASTROINTESTINAL: Appetite is still variable. Still has diarrhea. EXTREMITIES: The patient is mostly bed bound. MUSCULOSKELETAL: Feels weak. NEUROLOGIC: Alert and oriented x3 with some periods of forgetfulness. PHYSICAL EXAMINATION: VITAL SIGNS: Temperature 98.9, heart rate 87, blood pressure is 112/74, respirations 20, and saturations 98%. MENTAL STATUS EXAMINATION: An elderly female of [place] descent, alert and oriented x3. Mood is dysphoric, depressed. Affect is reactive. Speech is spontaneous. Thought process coherent for most of the content. No overt psychosis. No suicidal or homicidal ideation. Attention and memory seem to be limited at times. Insight and judgment are limited. Impulse control is fair at this time. ASSESSMENT: History of recurrent depression and anxiety and pseudomembranous colitis. PLAN AND RECOMMENDATIONS: The patient is seen, meds reviewed. We will continue her present psych meds for now. The patient is on Venlafaxine 150 mg daily. The patient is off Remeron. The patient was on PPN, which was held. Continue treatment and plan as outlined. The patient may benefit from going to subacute rehab. Alexandre Kumari MD MTDD
[2019-01-14] MEDS ORDERED: Digoxin 250 mcg (0.25 mg) Tab PO STA (22:43)
--- NOTE | 2019-01-15 00:53 | PN ---
DATE: 01/14/2019 SUBJECTIVE: The patient did undergo rapid response today and was found to be in rapid atrial fibrillation. The patient received 8 mg of IV Cardizem and 0.25 mg of IV digoxin, and she is currently in atrial fibrillation with controlled ventricular response. The patient also did receive 20 mg of IV Lasix for pulmonary congestion. At this time, she denies any chest pain. PHYSICAL EXAMINATION: VITAL SIGNS: Blood pressure 112/74, heart rate 74, temperature 98.9, respirations 18. HEENT: Pale conjunctivae. CHEST: Bibasilar rhonchi. HEART: S1 and S2 regular. ABDOMEN: Soft. EXTREMITIES: 1+ pitting edema. LABORATORY DATA: EKG after the rapid response revealed atrial fibrillation at a rate of 74. Hemoglobin and hematocrit today are 10.1 and 32.6. White count 14.5, platelet count 257,000. Today's SMA-7: Sodium 135, potassium 3.6, chloride 109, CO2 of 20, glucose 205, BUN 15, creatinine 0.7. Chest CT scan with PE protocol, no evidence of pulmonary embolism, small bilateral pleural effusion, bilateral lower lobe linear atelectasis, and a 1.3 cm thyroid nodule. Chest x-ray revealed mild CHF. ASSESSMENT: 1. Paroxysmal atrial fibrillation. 2. Mild fluid overload. 3. Depression. 4. Pseudomembranous colitis. RECOMMENDATIONS: Resume PPN. Continue Toprol-XL at 50 mg once a day, start Lasix 20 mg intravenously daily. Case was discussed with Dr. Sol Vasquez. In the meantime, I will start subcutaneous Lovenox at 40 mg daily until GI clearance is obtained for full anticoagulation. Sukhdev Dave MD
[2019-01-15] MEDS: metroNIDAZOLE IV 500 mg/100 ml 500 MG/100 ML BAG IVPB SCH ×3 (05:23→21:26)
[2019-01-15] MEDS: DIFICID 200 MG PO SCH ×2 (05:24→18:06)
[2019-01-15] MEDS: (Novolin R) Insulin Human Regular 100 units/ml vial SC SCH ×4 (08:09→21:25)
[2019-01-15 10:54] LABS: BASO % 0.3 % (0.0-2.0); HEMOGLOBIN 9.6 g/dL (11.0-16.0); LYMPH # 1.8 K/uL (1.0-4.3); LYMPH % 15.8 % (20.0-40.0); MEAN CELL VOLUME 84.3 fL (81.0-99.0); MEAN CORPUSCULAR HEMOGLOBIN 26.7 pg (27.0-31.0); MEAN CORPUSCULAR HGB CONC 31.7 g/dL (33.0-37.0); MEAN PLATELET VOLUME 8.9 fL (7.2-11.7); MONO # 0.7 K/uL (0.0-0.8); MONO % 6.4 % (0.0-10.0); NEUT # 8.7 K/uL (1.8-7.0); NEUT % 77.5 % (50.0-75.0); RBC 3.59 Mil/uL (3.80-5.20); RED CELL DISTRIBUTION WIDTH 21.3 % (11.5-14.5); WHITE BLOOD COUNT 11.3 K/uL (4.8-10.8)
--- NOTE | 2019-01-15 11:01 | CP.PCM.PN ---
Subjective - Date & Time of Evaluation Date of Evaluation: 01/15/19 Time of Evaluation: 10:58 - Subjective Subjective: pt seen and examined feels weeke like passing out bp 128/60 hr 100 on telemetry oxygen put in accu check is 220 now ate only a banan had again diarehea yesterday Objective - Vital Signs/Intake and Output Vital Signs (last 24 hours): Temp Pulse Resp BP Pulse Ox 98.6 F 103 H 20 128/68 100 01/15/19 07:30 01/15/19 07:30 01/15/19 07:30 01/15/19 07:30 01/15/19 07:30 Intake and Output: 01/15/19 01/15/19 06:59 18:59 Intake Total 504 Output Total 250 Balance 254 - Medications Medications: Current Medications Acetaminophen (Tylenol 325mg Tab) 650 mg PO Q8 PRN PRN Reason: Pain, Mild (1-3) Last Admin: 01/14/19 16:06 Dose: 650 mg Amlodipine Besylate (Norvasc) 5 mg PO DAILY [facility] Last Admin: 01/13/19 09:49 Dose: Not Given Diltiazem HCl (Cardizem) 60 mg PO TID [facility] Enoxaparin Sodium (Lovenox) 40 mg SC DAILY [facility] Last Admin: 01/14/19 18:29 Dose: 40 mg Famotidine (Pepcid) 20 mg PO DAILY [facility] Last Admin: 01/14/19 10:53 Dose: 20 mg Furosemide (Lasix) 20 mg IVP DAILY [facility] Home Med (Patient's Own Medication) 1 tab PO Q12H [facility] Last Admin: 01/15/19 05:24 Dose: 1 tab Hydrocortisone (Anusol-Hc) 25 mg RC BID PRN PRN Reason: Hemorrhoids Last Admin: 01/14/19 18:54 Dose: 25 mg Metronidazole (Flagyl) 500 mg in 100 mls @ 100 mls/hr IVPB Q8H [facility]; Protocol Last Admin: 01/15/19 05:23 Dose: 100 mls/hr Fat Emulsion Intravenous (Intralipid 20%) 500 mls @ 42 mls/hr IV QOD@1800 [facility] Stop: 01/17/19 18:01 Last Admin: 01/13/19 18:03 Dose: 42 mls/hr Multivitamins/Vitamin C 10 ml/Chromium/Copper/Manganese/Zinc 1 ml/ Amino Acids 1,011 mls @ 42 mls/hr IV .Q24H ONE Stop: 01/15/19 17:59 Last Admin: 01/14/19 17:35 Dose: 42 mls/hr Multivitamins/Vitamin C 10 ml/Chromium/Copper/Manganese/Zinc 1 ml/ Amino Acids 1,011 mls @ 42 mls/hr IV .Q24H [facility] Stop: 01/17/19 17:59 Insulin Human Regular (Novolin R) 0 unit SC ACHS [facility]; Protocol Last Admin: 01/15/19 08:09 Dose: Not Given Metoprolol Succinate (Toprol Xl) 50 mg PO QPM [facility] Last Admin: 01/14/19 17:34 Dose: 50 mg Venlafaxine HCl (Effexor) 150 mg PO DAILY [facility] Last Admin: 01/14/19 11:35 Dose: 150 mg - Labs Labs: 01/14/19 09:05 01/14/19 09:05 PT 13.7 SECONDS (9.7-12.2) H 01/07/19 05:59 INR 1.3 01/07/19 05:59 APTT 25 SECONDS (21-34) 01/07/19 05:59 - Constitutional Appears: In Acute Distress - Head Exam Head Exam: ATRAUMATIC - Eye Exam Eye Exam: Normal appearance Pupil Exam: NORMAL ACCOMODATION - ENT Exam ENT Exam: Mucous Membranes Moist - Neck Exam Neck Exam: Full ROM - Respiratory Exam Respiratory Exam: Decreased Breath Sounds - Cardiovascular Exam Cardiovascular Exam: Tachycardia - GI/Abdominal Exam GI & Abdominal Exam: Normal Bowel Sounds - Rectal Exam Additional comments: slight inflamation beter withanasole cram started last night - Exam External exam: NORMAL EXTERNAL EXAM - Extremities Exam Extremities Exam: Normal Inspection - Neurological Exam Neurological Exam: Awake, Oriented x3 - Psychiatric Exam Psychiatric exam: Normal Affect - Skin Skin Exam: Pallor Assessment and Plan - Assessment and Plan (Free Text) Assessment: membranous colitis poor aptite had diarehea ocd yesterday prctetis dm generalised weeknes Plan: cont as ordered need pt
[2019-01-15] MEDS: Enoxaparin 40 mg Syringe SC SCH (11:03)
[2019-01-15 11:23] LABS: ALB/GLOB RATIO 0.7 (1.0-2.1); ALBUMIN 2.5 g/dL (3.5-5.0); ALT/SGPT 18 U/L (9-52); AST/SGOT 19 U/L (14-36); BLOOD UREA NITROGEN 16 mg/dL (7-17); CALCIUM 8.3 mg/dl (8.6-10.4); GFR NON-AFRICAN AMERICAN > 60
--- NOTE | 2019-01-15 15:36 | CP.PCM.PN ---
Subjective - Date & Time of Evaluation Date of Evaluation: 01/15/19 Time of Evaluation: 09:00 - Subjective Subjective: seen on rounds ROS completed chart reviewed patient examined orders written antibiotics renewed Objective - Vital Signs/Intake and Output Vital Signs (last 24 hours): Temp Pulse Resp BP Pulse Ox 98.6 F 103 H 20 128/78 100 01/15/19 07:30 01/15/19 07:30 01/15/19 07:30 01/15/19 11:02 01/15/19 07:30 Intake and Output: 01/15/19 01/15/19 06:59 18:59 Intake Total 504 Output Total 250 Balance 254 - Medications Medications: Current Medications Acetaminophen (Tylenol 325mg Tab) 650 mg PO Q8 PRN PRN Reason: Pain, Mild (1-3) Last Admin: 01/14/19 16:06 Dose: 650 mg Amlodipine Besylate (Norvasc) 5 mg PO DAILY [facility] Last Admin: 01/13/19 09:49 Dose: Not Given Diltiazem HCl (Cardizem) 60 mg PO TID [facility] Last Admin: 01/15/19 14:18 Dose: 60 mg Enoxaparin Sodium (Lovenox) 40 mg SC DAILY [facility] Last Admin: 01/15/19 11:03 Dose: 40 mg Famotidine (Pepcid) 20 mg PO DAILY [facility] Last Admin: 01/15/19 11:03 Dose: 20 mg Furosemide (Lasix) 20 mg IVP DAILY [facility] Last Admin: 01/15/19 11:02 Dose: 20 mg Home Med (Patient's Own Medication) 1 tab PO Q12H [facility] Last Admin: 01/15/19 05:24 Dose: 1 tab Hydrocortisone (Anusol-Hc) 25 mg RC BID PRN PRN Reason: Hemorrhoids Last Admin: 01/14/19 18:54 Dose: 25 mg Metronidazole (Flagyl) 500 mg in 100 mls @ 100 mls/hr IVPB Q8H [facility]; Protocol Last Admin: 01/15/19 14:17 Dose: 100 mls/hr Fat Emulsion Intravenous (Intralipid 20%) 500 mls @ 42 mls/hr IV QOD@1800 [facility] Stop: 01/17/19 18:01 Last Admin: 01/13/19 18:03 Dose: 42 mls/hr Multivitamins/Vitamin C 10 ml/Chromium/Copper/Manganese/Zinc 1 ml/ Amino Acids 1,011 mls @ 42 mls/hr IV .Q24H ONE Stop: 01/15/19 17:59 Last Admin: 01/14/19 17:35 Dose: 42 mls/hr Multivitamins/Vitamin C 10 ml/Chromium/Copper/Manganese/Zinc 1 ml/ Amino Acids 1,011 mls @ 42 mls/hr IV .Q24H ONE Stop: 01/17/19 17:59 Insulin Human Regular (Novolin R) 0 unit SC ACHS [facility]; Protocol Last Admin: 01/15/19 13:09 Dose: 2 units Metoprolol Succinate (Toprol Xl) 50 mg PO QPM [facility] Last Admin: 01/14/19 17:34 Dose: 50 mg Venlafaxine HCl (Effexor) 150 mg PO DAILY [facility] Last Admin: 01/15/19 11:04 Dose: 150 mg - Labs Labs: 01/15/19 10:51 01/15/19 10:51 PT 13.7 SECONDS (9.7-12.2) H 01/07/19 05:59 INR 1.3 01/07/19 05:59 APTT 25 SECONDS (21-34) 01/07/19 05:59 - Constitutional Appears: No Acute Distress, Confused, Cachectic, Chronically Ill - Head Exam Head Exam: ATRAUMATIC, NORMAL INSPECTION, NORMOCEPHALIC - Eye Exam Eye Exam: EOMI, Normal appearance, PERRL Pupil Exam: NORMAL ACCOMODATION, PERRL - ENT Exam ENT Exam: Mucous Membranes Moist, Normal Exam - Neck Exam Neck Exam: Full ROM, Normal Inspection. absent: Lymphadenopathy - Respiratory Exam Respiratory Exam: Clear to Ausculation Bilateral, NORMAL BREATHING PATTERN - Cardiovascular Exam Cardiovascular Exam: REGULAR RHYTHM, +S1, +S2. absent: Murmur - GI/Abdominal Exam GI & Abdominal Exam: Distended, Soft, Diminished Bowel Sounds. absent: Te nderness - Rectal Exam Rectal Exam: Deferred - Exam Exam: NORMAL INSPECTION - Extremities Exam Extremities Exam: Full ROM, Normal Capillary Refill, Normal Inspection. absent: Joint Swelling, Pedal Edema - Back Exam Back Exam: NORMAL INSPECTION - Neurological Exam Neurological Exam: Alert, Altered, Awake, CN II-XII Intact, Motor Sensory Deficit. absent: Normal Gait, Oriented x3 Neuro motor strength exam: Left Upper Extremity: 3, Right Upper Extremity: 3, Left Lower Extremity: 3, Right Lower Extremity: 3 - Psychiatric Exam Psychiatric exam: Depressed, Normal Affect - Skin Skin Exam: Dry, Intact, Normal Color, Warm Assessment and Plan (1) Abdominal pain Status: Acute (2) Colitis Status: Acute (3) Sepsis Status: Acute (4) Depressed Status: Acute (5) Renal insufficiency Status: Acute (6) Change in mental status Status: Chronic (7) Dementia Status: Chronic (8) LOUIE (acute kidney injury) Status: Resolved (9) Atrial fibrillation with RVR Status: Resolved (10) Congestive cardiac failure Status: Resolved (11) Renal insufficiency Status: Resolved (12) CVA (cerebral vascular accident) Status: Ruled-out (13) Seizures Status: Ruled-out - Assessment and Plan (Free Text) Assessment: cont rx for c diff colitis GI follow up
[2019-01-15] MEDS: Metoprolol Succinate 50 mg XL Tab PO SCH (18:05)
--- NOTE | 2019-01-15 18:16 | PN ---
DATE: 01/15/2019 SUBJECTIVE: The patient is seen. The patient is doing better today. She is more verbal. The nurse reports at times she is reluctant to take her meds, but the patient states she was trying to eat. The patient is hoping to be discharged soon. The patient is still having diarrhea. The patient is only on Effexor 150 mg po daily. Remeron is being held due to her diarrhea. REVIEW OF SYSTEMS: She is more alert, verbal, interactive, seen in her room, not in acute respiratory distress. The patient is expressing desire to go home. PHYSICAL EXAMINATION: VITAL SIGNS: Temperature is 98.6, heart rate 103, blood pressure is 128/78, respirations 20, oxygen saturation is 100%. SKIN: No diaphoresis. HEENT: No headache, no dizziness. NECK: Supple. RESPIRATORY: No dyspnea. CARDIOVASCULAR: No chest pain. GASTROINTESTINAL: Still having diarrhea. The patient has history of pseudomembranous colitis. No abdominal pain. EXTREMITIES: Moving extremities, but most of the time the patient has been bed bound. MUSCULOSKELETAL: Generalized weakness. NEUROLOGIC: Alert, oriented x3 with periods of occasional confusion. GENITOURINARY: No complaints. MENTAL STATUS EXAMINATION: An elderly female, looks stated age, oriented x3. Mood is still depressed, but doing a little better. Speech is spontaneous. Affect is reactive. Thought process coherent. Thought content, the patient wants to go home. No overt psychosis. No suicidal or homicidal ideation. The patient is still reluctant to take her meds. Attention and memory seem to be fair. Insight and judgment are limited. Impulse control is fair at this time. ASSESSMENT: History of recurrent depression and anxiety as well as pseudomembranous colitis. PLAN AND RECOMMENDATIONS: The patient is seen, meds reviewed. Continue present management. Continue present psych meds. We will resume Remeron once the diarrhea has improved. The patient also wants to go home. The patient will benefit from subacute rehab for reconditioning when she is medically stable or if the patient will improve, she can go home. The patient has enough family members to take care of her at home. Alexandre Kumari MD MTDBrody
--- NOTE | 2019-01-15 22:38 | PN ---
DATE: 01/15/2019 SUBJECTIVE: The patient was earlier in rapid atrial fibrillation. She is currently in atrial fibrillation with controlled ventricular response. Cardizem was started at 60 mg t.i.d. She denies any chest pain. The patient's son and the patient's brother are at the bedside combing her hair and helping her with her lunch. PHYSICAL EXAMINATION: VITAL SIGNS: Blood pressure 128/68, heart rate 89, temperature 98.6, respirations 20. HEENT: Pale conjunctivae. CHEST: Clear. HEART: S1 and S2 regular. EXTREMITIES: Trace leg edema. LABORATORY DATA: Today's hemoglobin and hematocrit are 9.6 and 30.2; white count 11.3, platelet count 142,000. SMA-7: Sodium 135, potassium 3.8, chloride 108, CO2 of 21, glucose 215, BUN 16, creatinine 0.7. ASSESSMENT: 1. Paroxysmal atrial fibrillation. 2. Clostridium difficile colitis. 3. Dehydration. 4. Depression. RECOMMENDATIONS: Continue Cardizem at 60 mg 3 times daily, Effexor 150 mg daily, Flagyl 500 mg intravenous every 8 hours, Toprol-XL at 50 mg daily, Pepcid 20 mg p.o. once a day. Sukhdev Dave MD
[2019-01-16] MEDS: DIFICID 200 MG PO SCH ×2 (05:01→17:30)
[2019-01-16] MEDS: metroNIDAZOLE IV 500 mg/100 ml 500 MG/100 ML BAG IVPB SCH ×3 (05:01→21:58)
[2019-01-16] MEDS: (Novolin R) Insulin Human Regular 100 units/ml vial SC SCH ×4 (07:21→21:59)
[2019-01-16] MEDS: Enoxaparin 40 mg Syringe SC SCH (10:21)
--- NOTE | 2019-01-16 10:32 | CP.PCM.PN ---
Subjective - Date & Time of Evaluation Date of Evaluation: 01/16/19 Time of Evaluation: 10:29 - Subjective Subjective: pt has no apetite doesnot eate closing her eyes in bed no diarhea today Objective - Vital Signs/Intake and Output Vital Signs (last 24 hours): Temp Pulse Resp BP Pulse Ox 97.9 F 98 H 20 124/74 98 01/16/19 08:53 01/16/19 08:53 01/16/19 08:53 01/16/19 10:21 01/16/19 08:53 Intake and Output: 01/16/19 01/16/19 06:59 18:59 Output Total 0 Balance 0 - Medications Medications: Current Medications Acetaminophen (Tylenol 325mg Tab) 650 mg PO Q8 PRN PRN Reason: Pain, Mild (1-3) Last Admin: 01/14/19 16:06 Dose: 650 mg Amlodipine Besylate (Norvasc) 5 mg PO DAILY [facility] Last Admin: 01/13/19 09:49 Dose: Not Given Diltiazem HCl (Cardizem) 60 mg PO TID [facility] Last Admin: 01/16/19 10:21 Dose: 60 mg Enoxaparin Sodium (Lovenox) 40 mg SC DAILY [facility] Last Admin: 01/16/19 10:21 Dose: 40 mg Famotidine (Pepcid) 20 mg PO DAILY [facility] Last Admin: 01/16/19 10:21 Dose: 20 mg Furosemide (Lasix) 20 mg IVP DAILY [facility] Last Admin: 01/16/19 10:21 Dose: 20 mg Home Med (Patient's Own Medication) 1 tab PO Q12H [facility] Last Admin: 01/16/19 05:01 Dose: 1 tab Hydrocortisone (Anusol-Hc) 25 mg RC BID PRN PRN Reason: Hemorrhoids Last Admin: 01/14/19 18:54 Dose: 25 mg Metronidazole (Flagyl) 500 mg in 100 mls @ 100 mls/hr IVPB Q8H [facility]; Protocol Last Admin: 01/16/19 05:01 Dose: 100 mls/hr Fat Emulsion Intravenous (Intralipid 20%) 500 mls @ 42 mls/hr IV QOD@1800 [facility] Stop: 01/17/19 18:01 Last Admin: 01/13/19 18:03 Dose: 42 mls/hr Multivitamins/Vitamin C 10 ml/Chromium/Copper/Manganese/Zinc 1 ml/ Amino Acids 1,011 mls @ 42 mls/hr IV .Q24H ONE Stop: 01/17/19 17:59 Multivitamins/Vitamin C 10 ml/Chromium/Copper/Manganese/Zinc 1 ml/ Amino Acids 1,011 mls @ 42 mls/hr IV .Q24H ONE Stop: 01/17/19 17:59 Insulin Human Regular (Novolin R) 0 unit SC ACHS [facility]; Protocol Last Admin: 01/16/19 07:21 Dose: Not Given Megestrol Acetate (Megace) 400 mg PO DAILY [facility] Metoprolol Succinate (Toprol Xl) 50 mg PO QPM [facility] Last Admin: 01/15/19 18:05 Dose: 50 mg Venlafaxine HCl (Effexor) 150 mg PO DAILY [facility] Last Admin: 01/16/19 10:21 Dose: 150 mg - Labs Labs: 01/15/19 10:51 01/15/19 10:51 PT 13.7 SECONDS (9.7-12.2) H 01/07/19 05:59 INR 1.3 01/07/19 05:59 APTT 25 SECONDS (21-34) 01/07/19 05:59 - Constitutional Appears: Non-toxic - Head Exam Head Exam: ATRAUMATIC - Eye Exam Eye Exam: Normal appearance Additional comments: closing her eyes - ENT Exam ENT Exam: Mucous Membranes Moist - Neck Exam Neck Exam: Normal Inspection - Respiratory Exam Respiratory Exam: Decreased Breath Sounds - Cardiovascular Exam Cardiovascular Exam: REGULAR RHYTHM - GI/Abdominal Exam GI & Abdominal Exam: Normal Bowel Sounds - Extremities Exam Extremities Exam: Full ROM - Back Exam Back Exam: NORMAL INSPECTION - Neurological Exam Neurological Exam: Awake, Normal Gait, Oriented x3 - Psychiatric Exam Psychiatric exam: Depressed - Skin Skin Exam: Pallor Assessment and Plan - Assessment and Plan (Free Text) Assessment: colitis no apetite depression generalised weekness Plan: ordered megace cont as ordered pt
[2019-01-16] MEDS: Megestrol Acetate 40 mg/ml Cup PO SCH ×3 (12:09→15:51)
[2019-01-16] MEDS: Vancomycin Hydrochloride 125 mg Capsule (Oral) PO SCH ×3 (13:41→22:01)
--- NOTE | 2019-01-16 13:52 | CP.PCM.PN ---
Subjective - Date & Time of Evaluation Date of Evaluation: 01/16/19 Time of Evaluation: 13:50 - Subjective Subjective: Nephrology Consultation Note: Assessment: stable Acute Kidney Injury (N17.9) likely due to ATN due to sepsis, IV contrast : resolved C.Diff colitis, hagma with respi compensation, hyponatremia hypocalcemia nagma Diabetic chronic Kidney Disease (E11.22) Hypertensive Chronic Kidney Disease (I12.9) Chronic Kidney Disease (N18.3) Stage 3 with ? mg proteinuria (R80.9) Anemia (D64.9) hx of dig toxicity, A fib with rvr, CVA, hypothyroidism left adrenal nodule Plan Hypertension control with meds as ordered. Maintain hemodynamics stable. Avoid hypotension. Patient not on ACEI/ARB due to recent LOUIE, can add if needed for elevated BP. increased toprol XL to 50 mg/d started on cardizem by cardiology Monitor Input/Output, daily weights and renal function with basic metabolic panel supplement lytes as needed sodium bicarb 650 bid lowered left adrenal nodule work up as outpt Dose meds/antibiotics for GFR >60. Glycemic control Further work up/management as per primary team Thanks for allowing me to participate in care of your patient. please call if any Qs. had d/w team Dr Raghu Solis Office: [phone] Chief Complaint; pain abdomen Reason for consult: Acute Kidney Injury HPI: Pt is a 73 F with hx of diabetes Mellitus ( years), hypertension (years) CKD 3 with baseline cr 1.2-1.4, hx of dig toxicity, A fib, CVA, hypothyroidism presented with complaints of pain abdomen and being managed for sepsis, colitis, transferred to ICU Denies OTC/herbal meds or NSAIDs Noted recent iodinated contrast exposure. Noted obvious episodes of low BP (99/61). pt not aware about kidney disease in past ROS: pt lying comfortably no new complaints denies cp/sob s/p CTA: no PE. rate control meds adjusted by cardiology for a fib with rvr Physical Examination: General Appearance: comfortable, in no acute respiratory distress, co-operative . well appearing Vitals reviewed and noted as below Head; Atraumatic, normocephalic ENT: no ulcers no thrush. Tongue is midline. Oropharynx: no rash or ulcers. EYES: Pupils are equal, round and reactive to light accommodation. Eye muscles and extraocular movement intact. Sclera is anicteric. Neck; supple no lymphadenopathy, no thyromegaly or bruit Lungs: Normal respiratory rate/effort. Breath sounds bilateral clerarer Heart: normal rate. s1s2 normal. No rub or gallop. Extremities: trace edema. No varicose veins Neurological: Patient is lying comfortably awake alert follow commands Skin: Warm and dry. Normal turgor. No rash. Palpitation: Normal elasticity for age Abdomen: Abdomen is soft. Bowel sounds +. There is upper abdominal tenderness, no guarding/rigidity no organomegaly Psych: deferred MSK: no joint tenderness or swelling. Digits and nails normal, no deformity : kidney or bladder not palpable Labs/imaging reviewed. Past medical history, past surgical history, family history, social history, allergy reviewed and noted as below Family hx: no hx of CKD. Rest non-contributory Objective - Vital Signs/Intake and Output Vital Signs (last 24 hours): Temp Pulse Resp BP Pulse Ox 97.9 F 98 H 20 124/74 98 01/16/19 08:53 01/16/19 08:53 01/16/19 08:53 01/16/19 10:21 01/16/19 08:53 Intake and Output: 01/16/19 01/16/19 06:59 18:59 Output Total 0 Balance 0 - Medications Medications: Current Medications Acetaminophen (Tylenol 325mg Tab) 650 mg PO Q8 PRN PRN Reason: Pain, Mild (1-3) Last Admin: 01/14/19 16:06 Dose: 650 mg Amlodipine Besylate (Norvasc) 5 mg PO DAILY [facility] Last Admin: 01/13/19 09:49 Dose: Not Given Diltiazem HCl (Cardizem) 60 mg PO TID [facility] Last Admin: 01/16/19 13:41 Dose: 60 mg Enoxaparin Sodium (Lovenox) 40 mg SC DAILY [facility] Last Admin: 01/16/19 10:21 Dose: 40 mg Famotidine (Pepcid) 20 mg PO DAILY [facility] Last Admin: 01/16/19 10:21 Dose: 20 mg Furosemide (Lasix) 20 mg IVP DAILY [facility] Last Admin: 01/16/19 10:21 Dose: 20 mg Home Med (Patient's Own Medication) 1 tab PO Q12H [facility] Last Admin: 01/16/19 05:01 Dose: 1 tab Hydrocortisone (Anusol-Hc) 25 mg RC BID PRN PRN Reason: Hemorrhoids Last Admin: 01/14/19 18:54 Dose: 25 mg Metronidazole (Flagyl) 500 mg in 100 mls @ 100 mls/hr IVPB Q8H [facility]; Protocol Last Admin: 01/16/19 05:01 Dose: 100 mls/hr Insulin Human Regular (Novolin R) 0 unit SC ACHS [facility]; Protocol Last Admin: 01/16/19 13:17 Dose: Not Given Megestrol Acetate (Megace) 400 mg PO DAILY [facility] Last Admin: 01/16/19 13:41 Dose: 400 mg Metoprolol Succinate (Toprol Xl) 50 mg PO QPM [facility] Last Admin: 01/15/19 18:05 Dose: 50 mg Vancomycin HCl (Vancocin 125mg Capsule) 125 mg PO QID [facility] Last Admin: 01/16/19 13:41 Dose: 125 mg Venlafaxine HCl (Effexor) 150 mg PO DAILY [facility] Last Admin: 01/16/19 10:21 Dose: 150 mg - Labs Labs: 01/15/19 10:51 01/15/19 10:51 PT 13.7 SECONDS (9.7-12.2) H 01/07/19 05:59 INR 1.3 01/07/19 05:59 APTT 25 SECONDS (21-34) 01/07/19 05:59
--- NOTE | 2019-01-16 16:35 | PN ---
DATE: 01/16/2019 SUBJECTIVE: The patient is seen. She is more verbal but refusing to eat. She still has diarrhea. Seems depressed but behavior is regressed. According to the nurse, the patient wants everything to be done for her. We will hold off her Remeron until her diarrhea will improve. REVIEW OF SYSTEMS: The patient is seen her room, feeling weak but oriented x3, more conversant. PHYSICAL EXAMINATION: VITAL SIGNS: Temperature 97.9, pulse 98, blood pressure 124/74, and respirations 20. Oxygen saturation is 98%. SKIN: No diaphoresis. HEENT: No headache or dizziness. NECK: Supple. RESPIRATORY: No dyspnea. CARDIOVASCULAR: No chest pain. GASTROINTESTINAL: Still has bouts of diarrhea. No abdominal pain. The patient has a history of colitis. EXTREMITIES: Moving extremities. Gait is fair. MUSCULOSKELETAL: Feels weak. NEUROLOGICAL: Alert and oriented x3. GENITOURINARY: Not complaining of any urinary problems. MENTAL STATUS EXAMINATION: An elderly female of [place] descent, oriented x3. Mood is depressed, dysphoric. Affect is restricted. Speech is spontaneous. Though process coherent. Thought content; the patient wants to go home. No overt psychosis. No suicidal or homicidal ideation. Attention and memory seem to be limited. Insight and judgment limited. Impulse control is fair at this time. IMPRESSION: History of recurrent depression and anxiety as well as history of pseudomembranous colitis. PLAN AND RECOMMENDATIONS: The patient is seen. Meds reviewed. We will continue the Effexor for now at 150 mg daily. As stated, we will put her back on Remeron once diarrhea is improved. Continue treatment plan as outlined. The patient has been started by Dr. Vasquez with Gisele to improve her appetite. Alexandre Kumari MD [facility]
--- NOTE | 2019-01-16 17:09 | CP.PCM.PN ---
Subjective - Date & Time of Evaluation Date of Evaluation: 01/16/19 Time of Evaluation: 17:08 - Subjective Subjective: Loose brown stool in rectal tube Poor appetite weak Back on Vancomycin Objective - Vital Signs/Intake and Output Vital Signs (last 24 hours): Temp Pulse Resp BP Pulse Ox 98 F 57 L 20 123/68 95 01/16/19 16:00 01/16/19 16:00 01/16/19 16:00 01/16/19 16:00 01/16/19 16:00 Intake and Output: 01/16/19 01/16/19 06:59 18:59 Output Total 0 Balance 0 - Medications Medications: Current Medications Acetaminophen (Tylenol 325mg Tab) 650 mg PO Q8 PRN PRN Reason: Pain, Mild (1-3) Last Admin: 01/14/19 16:06 Dose: 650 mg Amlodipine Besylate (Norvasc) 5 mg PO DAILY [facility] Last Admin: 01/13/19 09:49 Dose: Not Given Diltiazem HCl (Cardizem) 60 mg PO TID [facility] Last Admin: 01/16/19 13:41 Dose: 60 mg Enoxaparin Sodium (Lovenox) 40 mg SC DAILY [facility] Last Admin: 01/16/19 10:21 Dose: 40 mg Famotidine (Pepcid) 20 mg PO DAILY [facility] Last Admin: 01/16/19 10:21 Dose: 20 mg Furosemide (Lasix) 20 mg IVP DAILY [facility] Last Admin: 01/16/19 10:21 Dose: 20 mg Home Med (Patient's Own Medication) 1 tab PO Q12H [facility] Last Admin: 01/16/19 05:01 Dose: 1 tab Hydrocortisone (Anusol-Hc) 25 mg RC BID PRN PRN Reason: Hemorrhoids Last Admin: 01/14/19 18:54 Dose: 25 mg Metronidazole (Flagyl) 500 mg in 100 mls @ 100 mls/hr IVPB Q8H [facility]; Protocol Last Admin: 01/16/19 15:51 Dose: 100 mls/hr Insulin Human Regular (Novolin R) 0 unit SC ACHS [facility]; Protocol Last Admin: 01/16/19 13:17 Dose: Not Given Megestrol Acetate (Megace) 400 mg PO DAILY [facility] Last Admin: 01/16/19 15:51 Dose: Not Given Metoprolol Succinate (Toprol Xl) 50 mg PO QPM [facility] Last Admin: 01/15/19 18:05 Dose: 50 mg Vancomycin HCl (Vancocin 125mg Capsule) 125 mg PO QID [facility] Last Admin: 01/16/19 13:41 Dose: 125 mg Venlafaxine HCl (Effexor) 150 mg PO DAILY [facility] Last Admin: 01/16/19 10:21 Dose: 150 mg - Labs Labs: 01/15/19 10:51 01/15/19 10:51 PT 13.7 SECONDS (9.7-12.2) H 01/07/19 05:59 INR 1.3 01/07/19 05:59 APTT 25 SECONDS (21-34) 01/07/19 05:59 - Constitutional Appears: Chronically Ill - Respiratory Exam Respiratory Exam: NORMAL BREATHING PATTERN - Cardiovascular Exam Cardiovascular Exam: REGULAR RHYTHM - GI/Abdominal Exam GI & Abdominal Exam: Soft. absent: Distended, Tenderness Assessment and Plan (1) Clostridium difficile colitis Assessment & Plan: Monitor Back on Vancomycin Status: Acute
[2019-01-16] MEDS ORDERED: PPN #6 IV ONE (18:00)
[2019-01-16] MEDS ORDERED: PPN #5 IV ONE (18:00)
--- NOTE | 2019-01-17 00:54 | PN ---
DATE: 01/16/2019 SUBJECTIVE: The patient denies any dizziness or palpitation. She is still experiencing very poor appetite. PHYSICAL EXAMINATION: VITAL SIGNS: Blood pressure 123/68, heart rate 67, temperature 98, respirations 20. HEENT: Pale conjunctivae. CHEST: Diminished air entry over the bases. HEART: S1 and S2, regular. EXTREMITIES: Trace leg edema. LABORATORY DATA: Today's blood sugars are 120, 192 and 204 respectively. ASSESSMENT: 1. Persistent atrial fibrillation. 2. Depression. 3. Clostridium difficile colitis. 4. Anemia. RECOMMENDATIONS: Continue Cardizem 60 mg t.i.d., IV Flagyl 500 mg every 8 hours, Lasix 20 mg a day, Norvasc 5 mg once a day, Toprol-XL 50 mg once a day, oral vancomycin 125 mg four times daily. Discontinue subcutaneous Lovenox and start Eliquis at 2.5 mg twice a day after having GI clearance. Sukhdev Dave MD
--- NOTE | 2019-01-17 01:36 | CARD ---
APPROVED REPORT Date of service: 01/14/2019 EKG Measurement Heart [id number] <Conclusion> Atrial fibrillation Low voltage QRS Nonspecific T wave abnormality Abnormal ECG
[2019-01-17] MEDS: metroNIDAZOLE IV 500 mg/100 ml 500 MG/100 ML BAG IVPB SCH ×3 (05:22→22:19)
[2019-01-17] MEDS: DIFICID 200 MG PO SCH ×2 (06:20→18:27)
[2019-01-17] MEDS: (Novolin R) Insulin Human Regular 100 units/ml vial SC SCH ×4 (08:26→21:50)
[2019-01-17] MEDS: Megestrol Acetate 40 mg/ml Cup PO SCH (09:18)
[2019-01-17] MEDS: Vancomycin Hydrochloride 125 mg Capsule (Oral) PO SCH ×4 (09:18→22:19)
--- NOTE | 2019-01-17 10:05 | CP.PCM.PN ---
Subjective - Date & Time of Evaluation Date of Evaluation: 01/17/19 Time of Evaluation: 10:03 - Subjective Subjective: pt feels beter no diarhea abd omin not painful poor apetite weeke need rehab Objective - Vital Signs/Intake and Output Vital Signs (last 24 hours): Temp Pulse Resp BP Pulse Ox 97.4 F L 103 H 18 124/71 97 01/17/19 07:00 01/17/19 07:00 01/17/19 07:00 01/17/19 09:18 01/17/19 07:00 Intake and Output: 01/17/19 01/17/19 06:59 18:59 Intake Total 200 Output Total 1200 Balance -1000 - Medications Medications: Current Medications Acetaminophen (Tylenol 325mg Tab) 650 mg PO Q8 PRN PRN Reason: Pain, Mild (1-3) Last Admin: 01/14/19 16:06 Dose: 650 mg Amlodipine Besylate (Norvasc) 5 mg PO DAILY [facility] Last Admin: 01/13/19 09:49 Dose: Not Given Apixaban (Eliquis) 2.5 mg PO BID [facility] Last Admin: 01/17/19 09:18 Dose: 2.5 mg Diltiazem HCl (Cardizem) 60 mg PO TID [facility] Last Admin: 01/17/19 09:18 Dose: 60 mg Famotidine (Pepcid) 20 mg PO DAILY [facility] Last Admin: 01/17/19 09:18 Dose: 20 mg Furosemide (Lasix) 20 mg IVP DAILY [facility] Last Admin: 01/17/19 09:18 Dose: 20 mg Home Med (Patient's Own Medication) 1 tab PO Q12H [facility] Last Admin: 01/17/19 06:20 Dose: Not Given Hydrocortisone (Anusol-Hc) 25 mg RC BID PRN PRN Reason: Hemorrhoids Last Admin: 01/14/19 18:54 Dose: 25 mg Metronidazole (Flagyl) 500 mg in 100 mls @ 100 mls/hr IVPB Q8H [facility]; Protocol Last Admin: 01/17/19 05:22 Dose: 100 mls/hr Insulin Human Regular (Novolin R) 0 unit SC ACHS [facility]; Protocol Last Admin: 01/17/19 08:26 Dose: Not Given Megestrol Acetate (Megace) 400 mg PO DAILY [facility] Last Admin: 01/17/19 09:18 Dose: 400 mg Metoprolol Tartrate (Lopressor) 50 mg PO QPM [facility] Vancomycin HCl (Vancocin 125mg Capsule) 125 mg PO QID [facility] Last Admin: 01/17/19 09:18 Dose: 125 mg Venlafaxine HCl (Effexor) 150 mg PO DAILY [facility] Last Admin: 01/17/19 09:18 Dose: 150 mg - Labs Labs: 01/15/19 10:51 01/15/19 10:51 PT 13.7 SECONDS (9.7-12.2) H 01/07/19 05:59 INR 1.3 01/07/19 05:59 APTT 25 SECONDS (21-34) 01/07/19 05:59 - Constitutional Appears: Non-toxic - Head Exam Head Exam: ATRAUMATIC - Eye Exam Eye Exam: Normal appearance Pupil Exam: NORMAL ACCOMODATION - ENT Exam ENT Exam: Mucous Membranes Moist - Neck Exam Neck Exam: Full ROM - Respiratory Exam Respiratory Exam: NORMAL BREATHING PATTERN - Cardiovascular Exam Cardiovascular Exam: REGULAR RHYTHM - GI/Abdominal Exam GI & Abdominal Exam: Normal Bowel Sounds - Extremities Exam Extremities Exam: Full ROM - Back Exam Back Exam: NORMAL INSPECTION - Neurological Exam Neurological Exam: Alert, Awake, Oriented x3 - Psychiatric Exam Psychiatric exam: Normal Affect - Skin Skin Exam: Pallor Assessment and Plan - Assessment and Plan (Free Text) Assessment: membranous colitis improving aneamiea depression generalised weekness Plan: disch to rehab
--- NOTE | 2019-01-17 11:11 | CP.PCM.PN ---
Subjective - Date & Time of Evaluation Date of Evaluation: 01/17/19 Time of Evaluation: 11:10 - Subjective Subjective: Nephrology Consultation Note: Assessment: stable Acute Kidney Injury (N17.9) likely due to ATN due to sepsis, IV contrast : resolved C.Diff colitis, hagma with respi compensation, hyponatremia hypocalcemia nagma Diabetic chronic Kidney Disease (E11.22) Hypertensive Chronic Kidney Disease (I12.9) Chronic Kidney Disease (N18.3) Stage 3 with ? mg proteinuria (R80.9) Anemia (D64.9) hx of dig toxicity, A fib with rvr, CVA, hypothyroidism left adrenal nodule Plan Hypertension control with meds as ordered. Maintain hemodynamics stable. Avoid hypotension. Patient not on ACEI/ARB due to recent LOUIE, can add if needed for elevated BP. increased toprol XL to 50 mg/d started on cardizem by cardiology Monitor Input/Output, daily weights and renal function with basic metabolic panel supplement lytes as needed sodium bicarb 650 bid lowered check labs in AM on appetite stimulants also on abx for c diff colitis left adrenal nodule work up as outpt Dose meds/antibiotics for GFR >60. Glycemic control Further work up/management as per primary team Thanks for allowing me to participate in care of your patient. please call if any Qs. had d/w team Dr Raghu Solis Office: [phone] Chief Complaint; pain abdomen Reason for consult: Acute Kidney Injury HPI: Pt is a 73 F with hx of diabetes Mellitus ( years), hypertension (years) CKD 3 with baseline cr 1.2-1.4, hx of dig toxicity, A fib, CVA, hypothyroidism presented with complaints of pain abdomen and being managed for sepsis, colitis, transferred to ICU Denies OTC/herbal meds or NSAIDs Noted recent iodinated contrast exposure. Noted obvious episodes of low BP (99/61). pt not aware about kidney disease in past ROS: pt lying comfortably no new complaints denies cp/sob s/p CTA: no PE. rate control meds adjusted by cardiology for a fib with rvr Physical Examination: General Appearance: comfortable, in no acute respiratory distress, co-operative Vitals reviewed and noted as below Head; Atraumatic, normocephalic ENT: no ulcers no thrush. Tongue is midline. Oropharynx: no rash or ulcers. EYES: Pupils are equal, round and reactive to light accommodation. Eye muscles and extraocular movement intact. Sclera is anicteric. Neck; supple no lymphadenopathy, no thyromegaly or bruit Lungs: Normal respiratory rate/effort. Breath sounds bilateral clerarer Heart: normal rate. s1s2 normal. No rub or gallop. Extremities: trace edema. No varicose veins Neurological: Patient is lying comfortably awake alert follow commands Skin: Warm and dry. Normal turgor. No rash. Palpitation: Normal elasticity for age Abdomen: Abdomen is soft. Bowel sounds +. There is upper abdominal tenderness, no guarding/rigidity no organomegaly Psych: deferred MSK: no joint tenderness or swelling. Digits and nails normal, no deformity : kidney or bladder not palpable Labs/imaging reviewed. Past medical history, past surgical history, family history, social history, allergy reviewed and noted as below Family hx: no hx of CKD. Rest non-contributory Objective - Vital Signs/Intake and Output Vital Signs (last 24 hours): Temp Pulse Resp BP Pulse Ox 97.4 F L 103 H 18 124/71 97 01/17/19 07:00 01/17/19 07:00 01/17/19 07:00 01/17/19 09:18 01/17/19 07:00 Intake and Output: 01/17/19 01/17/19 06:59 18:59 Intake Total 200 Output Total 1200 Balance -1000 - Medications Medications: Current Medications Acetaminophen (Tylenol 325mg Tab) 650 mg PO Q8 PRN PRN Reason: Pain, Mild (1-3) Last Admin: 01/14/19 16:06 Dose: 650 mg Amlodipine Besylate (Norvasc) 5 mg PO DAILY [facility] Last Admin: 01/13/19 09:49 Dose: Not Given Apixaban (Eliquis) 2.5 mg PO BID [facility] Last Admin: 01/17/19 09:18 Dose: 2.5 mg Diltiazem HCl (Cardizem) 60 mg PO TID [facility] Last Admin: 01/17/19 09:18 Dose: 60 mg Famotidine (Pepcid) 20 mg PO DAILY [facility] Last Admin: 01/17/19 09:18 Dose: 20 mg Furosemide (Lasix) 20 mg IVP DAILY [facility] Last Admin: 01/17/19 09:18 Dose: 20 mg Home Med (Patient's Own Medication) 1 tab PO Q12H [facility] Last Admin: 01/17/19 06:20 Dose: Not Given Hydrocortisone (Anusol-Hc) 25 mg RC BID PRN PRN Reason: Hemorrhoids Last Admin: 01/14/19 18:54 Dose: 25 mg Metronidazole (Flagyl) 500 mg in 100 mls @ 100 mls/hr IVPB Q8H [facility]; Protocol Last Admin: 01/17/19 05:22 Dose: 100 mls/hr Insulin Human Regular (Novolin R) 0 unit SC ACHS [facility]; Protocol Last Admin: 01/17/19 08:26 Dose: Not Given Megestrol Acetate (Megace) 400 mg PO DAILY [facility] Last Admin: 01/17/19 09:18 Dose: 400 mg Metoprolol Tartrate (Lopressor) 50 mg PO QPM [facility] Vancomycin HCl (Vancocin 125mg Capsule) 125 mg PO QID [facility] Last Admin: 01/17/19 09:18 Dose: 125 mg Venlafaxine HCl (Effexor) 150 mg PO DAILY [facility] Last Admin: 01/17/19 09:18 Dose: 150 mg - Labs Labs: 01/15/19 10:51 01/15/19 10:51 PT 13.7 SECONDS (9.7-12.2) H 01/07/19 05:59 INR 1.3 01/07/19 05:59 APTT 25 SECONDS (21-34) 01/07/19 05:59
--- NOTE | 2019-01-17 14:31 | CP.PCM.PN ---
Subjective - Date & Time of Evaluation Date of Evaluation: 01/17/19 Time of Evaluation: 14:29 - Subjective Subjective: f/u colitis Still diarrhea. On po vanco Objective - Vital Signs/Intake and Output Vital Signs (last 24 hours): Temp Pulse Resp BP Pulse Ox 97.4 F L 114 H 18 122/65 97 01/17/19 07:00 01/17/19 13:44 01/17/19 07:00 01/17/19 13:44 01/17/19 07:00 Intake and Output: 01/17/19 01/17/19 06:59 18:59 Intake Total 200 Output Total 1200 Balance -1000 - Medications Medications: Current Medications Acetaminophen (Tylenol 325mg Tab) 650 mg PO Q8 PRN PRN Reason: Pain, Mild (1-3) Last Admin: 01/14/19 16:06 Dose: 650 mg Amlodipine Besylate (Norvasc) 5 mg PO DAILY [facility] Last Admin: 01/13/19 09:49 Dose: Not Given Apixaban (Eliquis) 2.5 mg PO BID [facility] Last Admin: 01/17/19 09:18 Dose: 2.5 mg Diltiazem HCl (Cardizem) 60 mg PO TID [facility] Last Admin: 01/17/19 13:43 Dose: 60 mg Famotidine (Pepcid) 20 mg PO DAILY [facility] Last Admin: 01/17/19 09:18 Dose: 20 mg Furosemide (Lasix) 20 mg IVP DAILY [facility] Last Admin: 01/17/19 09:18 Dose: 20 mg Home Med (Patient's Own Medication) 1 tab PO Q12H [facility] Last Admin: 01/17/19 06:20 Dose: Not Given Hydrocortisone (Anusol-Hc) 25 mg RC BID PRN PRN Reason: Hemorrhoids Last Admin: 01/14/19 18:54 Dose: 25 mg Metronidazole (Flagyl) 500 mg in 100 mls @ 100 mls/hr IVPB Q8H [facility]; Protocol Last Admin: 01/17/19 13:43 Dose: 100 mls/hr Insulin Human Regular (Novolin R) 0 unit SC ACHS [facility]; Protocol Last Admin: 01/17/19 12:55 Dose: 2 units Megestrol Acetate (Megace) 400 mg PO DAILY [facility] Last Admin: 01/17/19 09:18 Dose: 400 mg Metoprolol Tartrate (Lopressor) 50 mg PO QPM [facility] Vancomycin HCl (Vancocin 125mg Capsule) 125 mg PO QID [facility] Last Admin: 01/17/19 13:43 Dose: 125 mg Venlafaxine HCl (Effexor) 150 mg PO DAILY [facility] Last Admin: 01/17/19 09:18 Dose: 150 mg - Labs Labs: 01/15/19 10:51 01/15/19 10:51 PT 13.7 SECONDS (9.7-12.2) H 01/07/19 05:59 INR 1.3 01/07/19 05:59 APTT 25 SECONDS (21-34) 01/07/19 05:59 - Constitutional Appears: Non-toxic - Respiratory Exam Respiratory Exam: Clear to Ausculation Bilateral - Cardiovascular Exam Cardiovascular Exam: RRR - GI/Abdominal Exam GI & Abdominal Exam: Soft, Normal Bowel Sounds. absent: Tenderness - Neurological Exam Neurological Exam: Alert, Awake Assessment and Plan (1) Depression Status: Acute (2) Anemia Status: Acute (3) Abdominal pain Assessment & Plan: better Status: Acute (4) Colitis Assessment & Plan: still with diarrhea. HAd pseudomembranes on colonsocopy. On po vanco Status: Acute (5) Sepsis Status: Acute (6) Renal insufficiency Status: Acute (7) Rectal bleed Status: Acute
--- NOTE | 2019-01-17 14:35 | PN ---
DATE: 01/17/2019 SUBJECTIVE: The patient was seen. The patient still looks depressed, has poor appetite, but has been trying to eat. Continues to have diarrhea. Note, the patient is taking Flagyl, which can cause loss of appetite as side effect, and the patient has been given Megace to improve her appetite. The patient is only taking Effexor 150 mg daily. We will hold the addition of Remeron, as Remeron can worsen her diarrhea. REVIEW OF SYSTEMS: The patient is drowsy, but arousable, seen in her room. She states she is taking her meds and staff reports she is starting to eat despite reporting poor appetite. PHYSICAL EXAMINATION: VITAL SIGNS: Temperature 97.4, pulse 103, blood pressure 124/71, respirations 18, oxygen saturation is 97%. SKIN: No diaphoresis. HEENT: No headache, no dizziness. NECK: Supple. RESPIRATORY: No dyspnea. CARDIOVASCULAR: No chest pain. GASTROINTESTINAL: Continues to have poor appetite, but is trying to eat and also still has diarrhea. EXTREMITIES: The patient has been bed-bound. MUSCULOSKELETAL: Feels weak. NEUROLOGIC: Alert, oriented x3, although she is drowsy. MENTAL STATUS EXAMINATION: An elderly female, looks stated age, oriented x2. Mood is dysphoric. Affect is restricted. Speech is slow. Though process, confused. Thought content, no overt psychosis. No suicidal or homicidal ideation. Attention and memory seem to be limited. Insight and judgment are limited. Impulse control is fair at this time. IMPRESSION: History of recurrent depression, anxiety as well as pseudomembranous colitis. PLAN AND RECOMMENDATIONS: The patient was seen, meds reviewed. Continue present management. We will keep her on Effexor for now. Psych-martin, the patient can be transferred for subacute rehab once medically cleared. Alexandre Kumari MD
--- NOTE | 2019-01-17 19:38 | PN ---
DATE: 01/17/2019 SUBJECTIVE: The patient still has poor appetite. She complains of weakness. She denies any chest pain or palpitations. PHYSICAL EXAMINATION: VITAL SIGNS: Blood pressure 136/89, heart rate 106, temperature 97.4, respirations 18. HEENT: Normocephalic. CHEST: Diminished breath sounds over the bases. HEART: S1, S2, regular. EXTREMITIES: No edema. LABORATORY DATA: Today's blood sugars 109 and 202 respectively. ASSESSMENT: 1. Persistent atrial fibrillation. 2. Dehydration. 3. Clostridium difficile colitis. 4. Hypertension. 5. Depression. RECOMMENDATIONS: Continue Lasix 20 mg twice daily, Eliquis 2.5 mg twice a day, Lopressor 50 mg once a day, Norvasc 5 mg once a day, oral vancomycin 125 mg four times daily. Sukhdev Dave MD
[2019-01-18] MEDS: metroNIDAZOLE IV 500 mg/100 ml 500 MG/100 ML BAG IVPB SCH ×3 (06:23→21:20)
[2019-01-18] MEDS: (Novolin R) Insulin Human Regular 100 units/ml vial SC SCH ×4 (07:00→21:25)
[2019-01-18 08:10] LABS: BLOOD UREA NITROGEN 16 mg/dL (7-17); CALCIUM 7.9 mg/dl (8.6-10.4); GFR NON-AFRICAN AMERICAN > 60
[2019-01-18] MEDS: Megestrol Acetate 40 mg/ml Cup PO SCH (10:42)
[2019-01-18] MEDS: Vancomycin Hydrochloride 125 mg Capsule (Oral) PO SCH ×4 (10:43→21:20)
--- NOTE | 2019-01-18 10:52 | CP.PCM.PN ---
Subjective - Date & Time of Evaluation Date of Evaluation: 01/18/19 Time of Evaluation: 10:51 - Subjective Subjective: Diarrhea improving On Vanco + Dificid Fair appetite Objective - Vital Signs/Intake and Output Vital Signs (last 24 hours): Temp Pulse Resp BP Pulse Ox 98.0 F 76 18 136/93 H 95 01/18/19 07:00 01/18/19 07:00 01/18/19 07:00 01/18/19 10:43 01/18/19 07:00 Intake and Output: 01/18/19 01/18/19 06:59 18:59 Output Total 300 Balance -300 - Medications Medications: Current Medications Acetaminophen (Tylenol 325mg Tab) 650 mg PO Q8 PRN PRN Reason: Pain, Mild (1-3) Last Admin: 01/14/19 16:06 Dose: 650 mg Amlodipine Besylate (Norvasc) 5 mg PO DAILY [facility] Last Admin: 01/13/19 09:49 Dose: Not Given Apixaban (Eliquis) 2.5 mg PO BID [facility] Last Admin: 01/18/19 10:42 Dose: 2.5 mg Diltiazem HCl (Cardizem) 60 mg PO TID [facility] Last Admin: 01/18/19 10:42 Dose: 60 mg Famotidine (Pepcid) 20 mg PO DAILY [facility] Last Admin: 01/18/19 10:42 Dose: 20 mg Furosemide (Lasix) 20 mg IVP DAILY [facility] Last Admin: 01/18/19 10:43 Dose: 20 mg Home Med (Patient's Own Medication) 1 tab PO Q12H [facility] Last Admin: 01/17/19 18:27 Dose: Not Given Hydrocortisone (Anusol-Hc) 25 mg RC BID PRN PRN Reason: Hemorrhoids Last Admin: 01/14/19 18:54 Dose: 25 mg Metronidazole (Flagyl) 500 mg in 100 mls @ 100 mls/hr IVPB Q8H [facility]; Protocol Last Admin: 01/18/19 06:23 Dose: 100 mls/hr Insulin Human Regular (Novolin R) 0 unit SC ACHS [facility]; Protocol Last Admin: 01/17/19 21:50 Dose: Not Given Megestrol Acetate (Megace) 400 mg PO DAILY [facility] Last Admin: 01/18/19 10:42 Dose: 400 mg Metoprolol Tartrate (Lopressor) 50 mg PO QPM [facility] Last Admin: 01/17/19 18:27 Dose: 50 mg Mirtazapine (Remeron) 30 mg PO HS [facility] Vancomycin HCl (Vancocin 125mg Capsule) 125 mg PO QID [facility] Last Admin: 01/18/19 10:43 Dose: 125 mg Venlafaxine HCl (Effexor) 150 mg PO DAILY [facility] Last Admin: 01/17/19 09:18 Dose: 150 mg - Labs Labs: 01/15/19 10:51 01/18/19 07:45 PT 13.7 SECONDS (9.7-12.2) H 01/07/19 05:59 INR 1.3 01/07/19 05:59 APTT 25 SECONDS (21-34) 01/07/19 05:59 - Constitutional Appears: Chronically Ill Assessment and Plan (1) Clostridium difficile colitis Assessment & Plan: Continue Vanco + Dificid Status: Acute
--- NOTE | 2019-01-18 12:03 | CP.PCM.PN ---
Subjective - Date & Time of Evaluation Date of Evaluation: 01/18/19 Time of Evaluation: 12:01 - Subjective Subjective: rectal tube out no diarehea no apetite Objective - Vital Signs/Intake and Output Vital Signs (last 24 hours): Temp Pulse Resp BP Pulse Ox 98.0 F 76 18 136/93 H 95 01/18/19 07:00 01/18/19 07:00 01/18/19 07:00 01/18/19 10:43 01/18/19 07:00 Intake and Output: 01/18/19 01/18/19 06:59 18:59 Output Total 300 Balance -300 - Medications Medications: Current Medications Acetaminophen (Tylenol 325mg Tab) 650 mg PO Q8 PRN PRN Reason: Pain, Mild (1-3) Last Admin: 01/14/19 16:06 Dose: 650 mg Amlodipine Besylate (Norvasc) 5 mg PO DAILY [facility] Last Admin: 01/13/19 09:49 Dose: Not Given Apixaban (Eliquis) 2.5 mg PO BID [facility] Last Admin: 01/18/19 10:42 Dose: 2.5 mg Diltiazem HCl (Cardizem) 60 mg PO TID [facility] Last Admin: 01/18/19 10:42 Dose: 60 mg Famotidine (Pepcid) 20 mg PO DAILY [facility] Last Admin: 01/18/19 10:42 Dose: 20 mg Furosemide (Lasix) 20 mg IVP DAILY [facility] Last Admin: 01/18/19 10:43 Dose: 20 mg Home Med (Patient's Own Medication) 1 tab PO Q12H [facility] Last Admin: 01/17/19 18:27 Dose: Not Given Hydrocortisone (Anusol-Hc) 25 mg RC BID PRN PRN Reason: Hemorrhoids Last Admin: 01/14/19 18:54 Dose: 25 mg Metronidazole (Flagyl) 500 mg in 100 mls @ 100 mls/hr IVPB Q8H [facility]; Protocol Last Admin: 01/18/19 06:23 Dose: 100 mls/hr Insulin Human Regular (Novolin R) 0 unit SC ACHS [facility]; Protocol Last Admin: 01/17/19 21:50 Dose: Not Given Megestrol Acetate (Megace) 400 mg PO DAILY [facility] Last Admin: 01/18/19 10:42 Dose: 400 mg Metoprolol Tartrate (Lopressor) 50 mg PO QPM [facility] Last Admin: 01/17/19 18:27 Dose: 50 mg Mirtazapine (Remeron) 30 mg PO HS [facility] Vancomycin HCl (Vancocin 125mg Capsule) 125 mg PO QID [facility] Last Admin: 01/18/19 10:43 Dose: 125 mg Venlafaxine HCl (Effexor) 150 mg PO DAILY [facility] Last Admin: 01/18/19 11:25 Dose: 150 mg - Labs Labs: 01/15/19 10:51 01/18/19 07:45 PT 13.7 SECONDS (9.7-12.2) H 01/07/19 05:59 INR 1.3 01/07/19 05:59 APTT 25 SECONDS (21-34) 01/07/19 05:59 - Constitutional Appears: Non-toxic - Head Exam Head Exam: ATRAUMATIC - Eye Exam Eye Exam: Normal appearance Pupil Exam: NORMAL ACCOMODATION - ENT Exam ENT Exam: Mucous Membranes Moist - Neck Exam Neck Exam: Full ROM - Respiratory Exam Respiratory Exam: Clear to Ausculation Bilateral - Cardiovascular Exam Cardiovascular Exam: REGULAR RHYTHM - GI/Abdominal Exam GI & Abdominal Exam: Normal Bowel Sounds - Exam Exam: NORMAL INSPECTION - Extremities Exam Extremities Exam: Normal Inspection - Back Exam Back Exam: NORMAL INSPECTION - Neurological Exam Neurological Exam: Awake, Oriented x3 - Psychiatric Exam Psychiatric exam: Normal Affect - Skin Skin Exam: Pallor Assessment and Plan - Assessment and Plan (Free Text) Assessment: membranous colitis s/p diahea c difecele depression generalised weekness Plan: need rehab
[2019-01-18] MEDS: Potassium Chloride 20 mEq/15 ml LIQ UD PO SCH (13:22)
--- NOTE | 2019-01-18 15:03 | PN ---
DATE: 01/19/2019 SUBJECTIVE: The patient was seen, still continues to have poor appetite, but more cooperative. The patient's diarrhea has improved. She is still taking Flagyl. We will readjust her psych meds now that the patient's diarrhea has improved. We will put her back on Remeron 30 mg at bedtime. So, the patient will eat and also continue the Megace that was given, and the Effexor 150 mg daily. PHYSICAL EXAMINATION: VITAL SIGNS: Temperature is 98, 76, 126/78, 18, and 95%. GENERAL: The patient is feeling weak, but arousable, more competent. The patient is eating poorly, but the patient was eating with assistance. SKIN: No pruritus. No diaphoresis. HEENT: No headache, no dizziness. NECK: Supple. RESPIRATORY: No dyspnea. CARDIOVASCULAR: No chest pain. GASTROINTESTINAL: Diarrhea has improved. No abdominal pain. The patient is starting to eat with encouragement, but still has poor appetite. EXTREMITIES: The patient is mostly bed bound. MUSCULOSKELETAL: There is weakness. NEUROLOGIC: Drowsy, but cognitively intact. GENITOURINARY: No dysuria. MENTAL STATUS EXAMINATION: An elderly female, looks stated age, oriented x3. Mood is dysphoric. Affect is restricted. Speech is slow. Thought process, confused. Thought content, no overt psychosis. No suicidal or homicidal ideation. Attention and memory seem to be limited. Insight and judgment are limited. Impulse control is fair at this time. IMPRESSION: History of recurrent depression, anxiety as well as pseudomembranous colitis, improving. FINAL RECOMMENDATIONS: The patient seen, meds reviewed. We will put her back on Remeron. The patient will take this at bedtime. Continue Effexor 150 mg daily. The patient used to be on dual antidepressants in the past, and was doing well. Continue antibiotics as ordered. Continue Megace to improve her appetite. Alexandre Kumari MD
--- NOTE | 2019-01-18 15:11 | CP.PCM.PN ---
Subjective - Date & Time of Evaluation Date of Evaluation: 01/18/19 Time of Evaluation: 15:10 - Subjective Subjective: Nephrology Consultation Note: Assessment: stable Acute Kidney Injury (N17.9) likely due to ATN due to sepsis, IV contrast : resolved C.Diff colitis, hagma with respi compensation, hyponatremia hypocalcemia nagma Diabetic chronic Kidney Disease (E11.22) Hypertensive Chronic Kidney Disease (I12.9) Chronic Kidney Disease (N18.3) Stage 3 with ? mg proteinuria (R80.9) Anemia (D64.9) hx of dig toxicity, A fib with rvr, CVA, hypothyroidism left adrenal nodule Plan Hypertension control with meds as ordered. Maintain hemodynamics stable. Avoid hypotension. Patient not on ACEI/ARB due to recent LOUIE, can add if needed for elevated BP. increased toprol XL to 50 mg/d started on cardizem by cardiology supplement lytes as needed on appetite stimulants also on abx for c diff colitis left adrenal nodule work up as outpt Dose meds/antibiotics for GFR >60. Glycemic control Further work up/management as per primary team Thanks for allowing me to participate in care of your patient. please call if any Qs. had d/w team Dr Raghu Solis Office: [phone] Chief Complaint; pain abdomen Reason for consult: Acute Kidney Injury HPI: Pt is a 73 F with hx of diabetes Mellitus ( years), hypertension (years) CKD 3 with baseline cr 1.2-1.4, hx of dig toxicity, A fib, CVA, hypothyroidism presented with complaints of pain abdomen and being managed for sepsis, colitis, transferred to ICU Denies OTC/herbal meds or NSAIDs Noted recent iodinated contrast exposure. Noted obvious episodes of low BP (99/ 61). pt not aware about kidney disease in past ROS: pt lying comfortably no new complaints denies cp/sob s/p CTA: no PE. rate control meds adjusted by cardiology for a fib with rvr oral intake poor Physical Examination: General Appearance: comfortable, in no acute respiratory distress, co-operative Vitals reviewed and noted as below Head; Atraumatic, normocephalic ENT: no ulcers no thrush. Tongue is midline. Oropharynx: no rash or ulcers. EYES: Pupils are equal, round and reactive to light accommodation. Eye muscles and extraocular movement intact. Sclera is anicteric. Neck; supple no lymphadenopathy, no thyromegaly or bruit Lungs: Normal respiratory rate/effort. Breath sounds bilateral clerarer Heart: normal rate. s1s2 normal. No rub or gallop. Extremities: no edema. No varicose veins Neurological: Patient is lying comfortably awake alert follow commands Skin: Warm and dry. Normal turgor. No rash. Palpitation: Normal elasticity for age Abdomen: Abdomen is soft. Bowel sounds +. There is upper abdominal tenderness, no guarding/rigidity no organomegaly Psych: deferred MSK: no joint tenderness or swelling. Digits and nails normal, no deformity : kidney or bladder not palpable Labs/imaging reviewed. Past medical history, past surgical history, family history, social history, allergy reviewed and noted as below Family hx: no hx of CKD. Rest non-contributory Objective - Vital Signs/Intake and Output Vital Signs (last 24 hours): Temp Pulse Resp BP Pulse Ox 98.0 F 76 18 136/93 H 95 01/18/19 07:00 01/18/19 07:00 01/18/19 07:00 01/18/19 10:43 01/18/19 07:00 Intake and Output: 01/18/19 01/18/19 06:59 18:59 Output Total 300 Balance -300 - Medications Medications: Current Medications Acetaminophen (Tylenol 325mg Tab) 650 mg PO Q8 PRN PRN Reason: Pain, Mild (1-3) Last Admin: 01/14/19 16:06 Dose: 650 mg Amlodipine Besylate (Norvasc) 5 mg PO DAILY [facility] Last Admin: 01/13/19 09:49 Dose: Not Given Apixaban (Eliquis) 2.5 mg PO BID [facility] Last Admin: 01/18/19 10:42 Dose: 2.5 mg Diltiazem HCl (Cardizem) 60 mg PO TID [facility] Last Admin: 01/18/19 13:22 Dose: 60 mg Famotidine (Pepcid) 20 mg PO DAILY [facility] Last Admin: 01/18/19 10:42 Dose: 20 mg Furosemide (Lasix) 20 mg IVP DAILY [facility] Last Admin: 01/18/19 10:43 Dose: 20 mg Hydrocortisone (Anusol-Hc) 25 mg RC BID PRN PRN Reason: Hemorrhoids Last Admin: 01/14/19 18:54 Dose: 25 mg Metronidazole (Flagyl) 500 mg in 100 mls @ 100 mls/hr IVPB Q8H [facility]; Protocol Last Admin: 01/18/19 13:27 Dose: 100 mls/hr Insulin Human Regular (Novolin R) 0 unit SC ACHS [facility]; Protocol Last Admin: 01/18/19 12:30 Dose: Not Given Megestrol Acetate (Megace) 400 mg PO DAILY [facility] Last Admin: 01/18/19 10:42 Dose: 400 mg Metoprolol Tartrate (Lopressor) 50 mg PO QPM [facility] Last Admin: 01/17/19 18:27 Dose: 50 mg Mirtazapine (Remeron) 30 mg PO HS [facility] Potassium Chloride (Potassium Chloride Oral Soln) 20 meq PO DAILY [facility] Last Admin: 01/18/19 13:22 Dose: 20 meq Vancomycin HCl (Vancocin 125mg Capsule) 125 mg PO QID [facility] Last Admin: 01/18/19 13:21 Dose: 125 mg Venlafaxine HCl (Effexor) 150 mg PO DAILY [facility] Last Admin: 01/18/19 11:25 Dose: 150 mg - Labs Labs: 01/15/19 10:51 01/18/19 07:45 PT 13.7 SECONDS (9.7-12.2) H 01/07/19 05:59 INR 1.3 01/07/19 05:59 APTT 25 SECONDS (21-34) 01/07/19 05:59
--- NOTE | 2019-01-18 23:08 | PN ---
DATE: 01/18/2019 SUBJECTIVE: The patient is depressed, refusing to eat. She denies any chest pain or palpitations. PHYSICAL EXAMINATION: VITAL SIGNS: Blood pressure 136/93, heart rate 76, temperature 98, respirations 18. HEENT: Normocephalic. CHEST: Diminished breath sounds over the bases. HEART: S1 and S2, regular. EXTREMITIES: 1+ pitting edema. LABORATORY DATA: Today's SMA-7: Sodium 139, potassium 3.4, chloride 109, CO2 of 25, glucose 128, BUN 16, creatinine 0.7. ASSESSMENT: 1. Persistent atrial fibrillation. 2. Depression and severe anorexia. 3. Clostridium difficile colitis. 4. Uncontrolled hypertension. 5. Diabetes mellitus. RECOMMENDATIONS: Continue Cardizem 60 mg three times a day, Eliquis 2.5 mg twice a day, IV Flagyl 500 mg every 8 hours, IV Lasix 20 mg intravenously daily, Lopressor 50 mg once a day, Norvasc 5 mg once a day. Start KCl 20 mEq orally daily. Sukhdev Dave MD
[2019-01-19] MEDS: metroNIDAZOLE IV 500 mg/100 ml 500 MG/100 ML BAG IVPB SCH ×3 (05:43→21:31)
[2019-01-19] MEDS: (Novolin R) Insulin Human Regular 100 units/ml vial SC SCH ×4 (07:43→21:59)
[2019-01-19] MEDS: Potassium Chloride 20 mEq/15 ml LIQ UD PO SCH (09:36)
[2019-01-19] MEDS: Megestrol Acetate 40 mg/ml Cup PO SCH (09:36)
[2019-01-19] MEDS: Vancomycin Hydrochloride 125 mg Capsule (Oral) PO SCH ×4 (09:36→22:42)
--- NOTE | 2019-01-19 11:20 | CP.PCM.PN ---
Subjective - Date & Time of Evaluation Date of Evaluation: 01/19/19 Time of Evaluation: 10:30 - Subjective Subjective: f/u diarrhea. Reports less diarrhea Denies RB, melena, CP, SOB, GARCIA, cough, SZ, Constip Objective - Vital Signs/Intake and Output Vital Signs (last 24 hours): Temp Pulse Resp BP Pulse Ox 98.3 F 134 H 20 121/82 98 01/19/19 08:37 01/19/19 08:37 01/19/19 08:37 01/19/19 09:37 01/19/19 08:37 Intake and Output: 01/19/19 01/19/19 06:59 18:59 Intake Total 500 Output Total 350 Balance 150 - Medications Medications: Current Medications Acetaminophen (Tylenol 325mg Tab) 650 mg PO Q8 PRN PRN Reason: Pain, Mild (1-3) Last Admin: 01/14/19 16:06 Dose: 650 mg Amlodipine Besylate (Norvasc) 5 mg PO DAILY [facility] Last Admin: 01/13/19 09:49 Dose: Not Given Apixaban (Eliquis) 2.5 mg PO BID [facility] Last Admin: 01/19/19 09:35 Dose: 2.5 mg Diltiazem HCl (Cardizem) 60 mg PO TID [facility] Last Admin: 01/19/19 09:35 Dose: 60 mg Famotidine (Pepcid) 20 mg PO DAILY [facility] Last Admin: 01/19/19 09:36 Dose: 20 mg Furosemide (Lasix) 20 mg IVP DAILY [facility] Last Admin: 01/19/19 09:37 Dose: 20 mg Hydrocortisone (Anusol-Hc) 25 mg RC BID PRN PRN Reason: Hemorrhoids Last Admin: 01/14/19 18:54 Dose: 25 mg Metronidazole (Flagyl) 500 mg in 100 mls @ 100 mls/hr IVPB Q8H [facility]; Protocol Last Admin: 01/19/19 05:43 Dose: 100 mls/hr Insulin Human Regular (Novolin R) 0 unit SC ACHS [facility]; Protocol Last Admin: 01/19/19 07:43 Dose: Not Given Megestrol Acetate (Megace) 400 mg PO DAILY [facility] Last Admin: 01/19/19 09:36 Dose: 400 mg Metoprolol Tartrate (Lopressor) 50 mg PO QPM [facility] Last Admin: 01/18/19 18:15 Dose: 50 mg Mirtazapine (Remeron) 30 mg PO HS [facility] Potassium Chloride (Potassium Chloride Oral Soln) 20 meq PO DAILY [facility] Last Admin: 01/19/19 09:36 Dose: 20 meq Vancomycin HCl (Vancocin 125mg Capsule) 125 mg PO QID [facility] Last Admin: 01/19/19 09:36 Dose: 125 mg Venlafaxine HCl (Effexor) 150 mg PO DAILY [facility] Last Admin: 01/19/19 09:36 Dose: 150 mg - Labs Labs: 01/15/19 10:51 01/18/19 07:45 PT 13.7 SECONDS (9.7-12.2) H 01/07/19 05:59 INR 1.3 01/07/19 05:59 APTT 25 SECONDS (21-34) 01/07/19 05:59 - Constitutional Appears: Non-toxic - Respiratory Exam Respiratory Exam: Clear to Ausculation Bilateral - Cardiovascular Exam Cardiovascular Exam: RRR - GI/Abdominal Exam GI & Abdominal Exam: Soft, Normal Bowel Sounds. absent: Guarding, Tenderness, Mass, Rebound - Extremities Exam Extremities Exam: absent: Calf Tenderness - Neurological Exam Neurological Exam: Alert, Awake Assessment and Plan (1) Depression Assessment & Plan: stable Status: Acute (2) Anemia Status: Acute (3) Abdominal pain Assessment & Plan: improving Status: Acute (4) Colitis Assessment & Plan: c diff. Psudomembranes od f/s. Treated with dificid. On Vanco po Rec- follow for diarrhea. Status: Acute (5) Sepsis Status: Acute (6) Renal insufficiency Status: Acute (7) Rectal bleed Assessment & Plan: c diff colitis Status: Acute (8) Atrial fibrillation Status: Acute
--- NOTE | 2019-01-19 12:28 | CP.PCM.PN ---
Subjective - Date & Time of Evaluation Date of Evaluation: 01/19/19 Time of Evaluation: 12:27 - Subjective Subjective: Nephrology Consultation Note: Assessment: stable Acute Kidney Injury (N17.9) likely due to ATN due to sepsis, IV contrast : resolved C.Diff colitis, hagma with respi compensation, hyponatremia hypocalcemia nagma Diabetic chronic Kidney Disease (E11.22) Hypertensive Chronic Kidney Disease (I12.9) Chronic Kidney Disease (N18.3) Stage 3 with ? mg proteinuria (R80.9) Anemia (D64.9) hx of dig toxicity, A fib with rvr, CVA, hypothyroidism left adrenal nodule Plan Hypertension control with meds as ordered. Maintain hemodynamics stable. Avoid hypotension. Patient not on ACEI/ARB due to recent LOUIE, can add if needed for elevated BP. increased toprol XL to 50 mg/d started on cardizem by cardiology supplement lytes as needed on appetite stimulants also on abx for c diff colitis left adrenal nodule work up as outpt Dose meds/antibiotics for GFR >60. Glycemic control Further work up/management as per primary team Thanks for allowing me to participate in care of your patient. will sign off and follow further prn basis.please call if any Qs. had d/w team Dr Raghu Solis Office: [phone] Chief Complaint; pain abdomen Reason for consult: Acute Kidney Injury HPI: Pt is a 73 F with hx of diabetes Mellitus ( years), hypertension (years) CKD 3 with baseline cr 1.2-1.4, hx of dig toxicity, A fib, CVA, hypothyroidism presented with complaints of pain abdomen and being managed for sepsis, colitis, transferred to ICU Denies OTC/herbal meds or NSAIDs Noted recent iodinated contrast exposure. Noted obvious episodes of low BP (99/61). pt not aware about kidney disease in past ROS: pt lying comfortably no new complaints denies cp/sob s/p CTA: no PE. rate control meds adjusted by cardiology for a fib with rvr oral intake poor Physical Examination: General Appearance: comfortable, in no acute respiratory distress, co-operative Vitals reviewed and noted as below Head; Atraumatic, normocephalic ENT: no ulcers no thrush. Tongue is midline. Oropharynx: no rash or ulcers. EYES: Pupils are equal, round and reactive to light accommodation. Eye muscles and extraocular movement intact. Sclera is anicteric. Neck; supple no lymphadenopathy, no thyromegaly or bruit Lungs: Normal respiratory rate/effort. Breath sounds bilateral clerarer Heart: normal rate. s1s2 normal. No rub or gallop. Extremities: no edema. No varicose veins Neurological: Patient is lying comfortably awake alert follow commands Skin: Warm and dry. Normal turgor. No rash. Palpitation: Normal elasticity for a ge Abdomen: Abdomen is soft. Bowel sounds +. There is upper abdominal tenderness, no guarding/rigidity no organomegaly Psych: deferred MSK: no joint tenderness or swelling. Digits and nails normal, no deformity : kidney or bladder not palpable Labs/imaging reviewed. Past medical history, past surgical history, family history, social history, allergy reviewed and noted as below Family hx: no hx of CKD. Rest non-contributory Objective - Vital Signs/Intake and Output Vital Signs (last 24 hours): Temp Pulse Resp BP Pulse Ox 98.3 F 134 H 20 121/82 98 01/19/19 08:37 01/19/19 08:37 01/19/19 08:37 01/19/19 09:37 01/19/19 08:37 Intake and Output: 01/19/19 01/19/19 06:59 18:59 Intake Total 500 Output Total 350 Balance 150 - Medications Medications: Current Medications Acetaminophen (Tylenol 325mg Tab) 650 mg PO Q8 PRN PRN Reason: Pain, Mild (1-3) Last Admin: 01/14/19 16:06 Dose: 650 mg Amlodipine Besylate (Norvasc) 5 mg PO DAILY [facility] Last Admin: 01/13/19 09:49 Dose: Not Given Apixaban (Eliquis) 2.5 mg PO BID [facility] Last Admin: 01/19/19 09:35 Dose: 2.5 mg Diltiazem HCl (Cardizem) 60 mg PO TID [facility] Last Admin: 01/19/19 09:35 Dose: 60 mg Famotidine (Pepcid) 20 mg PO DAILY [facility] Last Admin: 01/19/19 09:36 Dose: 20 mg Furosemide (Lasix) 20 mg IVP DAILY [facility] Last Admin: 01/19/19 09:37 Dose: 20 mg Hydrocortisone (Anusol-Hc) 25 mg RC BID PRN PRN Reason: Hemorrhoids Last Admin: 01/14/19 18:54 Dose: 25 mg Metronidazole (Flagyl) 500 mg in 100 mls @ 100 mls/hr IVPB Q8H [facility]; Protocol Last Admin: 01/19/19 05:43 Dose: 100 mls/hr Insulin Human Regular (Novolin R) 0 unit SC ACHS [facility]; Protocol Last Admin: 01/19/19 11:48 Dose: 1 units Megestrol Acetate (Megace) 400 mg PO DAILY [facility] Last Admin: 01/19/19 09:36 Dose: 400 mg Metoprolol Tartrate (Lopressor) 50 mg PO QPM [facility] Last Admin: 01/18/19 18:15 Dose: 50 mg Mirtazapine (Remeron) 30 mg PO HS [facility] Potassium Chloride (Potassium Chloride Oral Soln) 20 meq PO DAILY [facility] Last Admin: 01/19/19 09:36 Dose: 20 meq Vancomycin HCl (Vancocin 125mg Capsule) 125 mg PO QID [facility] Last Admin: 01/19/19 09:36 Dose: 125 mg Venlafaxine HCl (Effexor) 150 mg PO DAILY [facility] Last Admin: 01/19/19 09:36 Dose: 150 mg - Labs Labs: 01/15/19 10:51 01/18/19 07:45 PT 13.7 SECONDS (9.7-12.2) H 01/07/19 05:59 INR 1.3 01/07/19 05:59 APTT 25 SECONDS (21-34) 01/07/19 05:59
--- NOTE | 2019-01-19 14:20 | PN ---
DATE: 01/19/2019 SUBJECTIVE: The patient is seen. The patient has resumed taking Remeron 30 mg at bedtime together with her Effexor. The patient still looks depressed, but more cooperative and states that she is trying to eat, still on Flagyl for her colitis. Diarrhea seems to be improving. REVIEW OF SYSTEMS: The patient is seen in her room, more alert and verbal, more interactive. The patient has been compliant with her medications. PHYSICAL EXAMINATION: VITAL SIGNS: Temperature is 98.3, pulse 134, blood pressure 121/82, respirations 20, and oxygen saturation is 98%. SKIN: No diaphoresis. HEENT: No headache, no dizziness. NECK: Supple. RESPIRATORY: No dyspnea. CARDIOVASCULAR: No chest pain. GASTROINTESTINAL: Diarrhea is improving. Her appetite, however, is still poor. EXTREMITIES: Mostly bed bound. MUSCULOSKELETAL: Feels weak. NEUROLOGIC: Alert and oriented x2 with some periods of confusion. GENITOURINARY: No urinary problems reported. MENTAL STATUS EXAMINATION: An elderly female, who looks stated age, oriented x2. Mood is dysphoric. Affect is restricted. Speech is spontaneous. The patient is more verbal. Thought process, coherent. Thought content, no overt psychosis. No suicidal or homicidal ideation. The patient states she will try to eat more. Attention and memory seems to be limited. Insight and judgment are limited. Impulse control is fair at this time. IMPRESSION: History of recurrent depression, anxiety, as well as pseudomembranous colitis. PLAN AND RECOMMENDATIONS: The patient is seen, meds reviewed. We will continue the present psych meds. We will monitor her p.o. intake. The patient is currently taking Megace to improve her appetite. She has been back with the Remeron 30 mg at bedtime as well as Effexor. Continue antibiotics as ordered. Note: The patient is still taking Flagyl which can cause loss of appetite as the side effects. Alexandre Kumari MD
--- NOTE | 2019-01-19 15:44 | PCM.HF ---
Heart Failure Core Measure - Heart Failure Ejection Fraction: 40 % or Greater (EF 60-65%) JENSEN Inhibitor Prescribed: No Contraindication/Reason for not providing: renal insufficiency Beta-Delmis Prescribed: Metoprolol Succinate Angiotensin II Receptor Delmis Prescribed: No Contraindication/Reason for not providing: renal insufficiency AnticoagulationTherapy for Atrial Fibrillation/Atrialflutter: Yes Aldosterone Antagonist Prescribed: No Contraindication/Reason for not providing: EF >40 % Hydralazine Nitrate Prescribed: No Contraindication/Reason for not providing: on CCB Implantable Cardioverter Defibrillator Therapy: No Contraindication/Reason for not providing: EF >40% Cardiac Resynchronization Therapy Prescribed: No Contraindication/Reason for not providing: not indication - Follow up Will be discharged to: Group Home Facility ([facility] – [place])
--- NOTE | 2019-01-19 18:33 | CP.PCM.PN ---
Subjective - Date & Time of Evaluation Date of Evaluation: 01/19/19 Time of Evaluation: 18:31 - Subjective Subjective: has diarhea poor apetite no pain Objective - Vital Signs/Intake and Output Vital Signs (last 24 hours): Temp Pulse Resp BP Pulse Ox 98 F 76 20 128/67 99 01/19/19 17:07 01/19/19 17:07 01/19/19 17:07 01/19/19 17:07 01/19/19 17:07 Intake and Output: 01/19/19 01/19/19 06:59 18:59 Intake Total 500 400 Output Total 350 Balance 150 400 - Medications Medications: Current Medications Acetaminophen (Tylenol 325mg Tab) 650 mg PO Q8 PRN PRN Reason: Pain, Mild (1-3) Last Admin: 01/14/19 16:06 Dose: 650 mg Amlodipine Besylate (Norvasc) 5 mg PO DAILY [facility] Last Admin: 01/13/19 09:49 Dose: Not Given Apixaban (Eliquis) 2.5 mg PO BID [facility] Last Admin: 01/19/19 17:33 Dose: 2.5 mg Diltiazem HCl (Cardizem) 60 mg PO TID [facility] Last Admin: 01/19/19 17:33 Dose: 60 mg Famotidine (Pepcid) 20 mg PO DAILY [facility] Last Admin: 01/19/19 09:36 Dose: 20 mg Furosemide (Lasix) 20 mg IVP DAILY [facility] Last Admin: 01/19/19 09:37 Dose: 20 mg Hydrocortisone (Anusol-Hc) 25 mg RC BID PRN PRN Reason: Hemorrhoids Last Admin: 01/14/19 18:54 Dose: 25 mg Metronidazole (Flagyl) 500 mg in 100 mls @ 100 mls/hr IVPB Q8H [facility]; Protocol Last Admin: 01/19/19 14:24 Dose: 100 mls/hr Insulin Human Regular (Novolin R) 0 unit SC ACHS [facility]; Protocol Last Admin: 01/19/19 17:34 Dose: 1 units Megestrol Acetate (Megace) 400 mg PO DAILY [facility] Last Admin: 01/19/19 09:36 Dose: 400 mg Metoprolol Tartrate (Lopressor) 50 mg PO QPM [facility] Last Admin: 01/19/19 17:33 Dose: 50 mg Mirtazapine (Remeron) 30 mg PO [facility] Potassium Chloride (Potassium Chloride Oral Soln) 20 meq PO DAILY [facility] Last Admin: 01/19/19 09:36 Dose: 20 meq Vancomycin HCl (Vancocin 125mg Capsule) 125 mg PO QID [facility] Last Admin: 01/19/19 14:24 Dose: 125 mg Venlafaxine HCl (Effexor) 150 mg PO DAILY [facility] Last Admin: 01/19/19 09:36 Dose: 150 mg - Labs Labs: 01/15/19 10:51 01/18/19 07:45 PT 13.7 SECONDS (9.7-12.2) H 01/07/19 05:59 INR 1.3 01/07/19 05:59 APTT 25 SECONDS (21-34) 01/07/19 05:59 - Constitutional Appears: Non-toxic - Head Exam Head Exam: ATRAUMATIC - Eye Exam Eye Exam: Normal appearance Pupil Exam: NORMAL ACCOMODATION - ENT Exam ENT Exam: Mucous Membranes Moist - Neck Exam Neck Exam: Full ROM - Respiratory Exam Respiratory Exam: Decreased Breath Sounds, Clear to Ausculation Bilateral - Cardiovascular Exam Cardiovascular Exam: REGULAR RHYTHM - GI/Abdominal Exam GI & Abdominal Exam: Normal Bowel Sounds - Extremities Exam Extremities Exam: Normal Inspection - Back Exam Back Exam: NORMAL INSPECTION - Neurological Exam Neurological Exam: Awake, Oriented x3 - Psychiatric Exam Psychiatric exam: Depressed - Skin Skin Exam: Pallor Assessment and Plan - Assessment and Plan (Free Text) Assessment: membranous colitis depresion aneamia generalised weekness Plan: cont as ordered
--- NOTE | 2019-01-19 21:32 | PN ---
DATE: 01/19/2019 SUBJECTIVE: The patient denies any chest pain or palpitations. She still has poor appetite. PHYSICAL EXAMINATION: VITAL SIGNS: Blood pressure 121/84, heart rate 134, temperature 98.3, respirations 20. HEENT: Normocephalic. CHEST: Clear. HEART: S1, S2. Regular. ABDOMEN: Soft. EXTREMITIES: Trace leg edema. LABORATORY DATA: Blood sugars are 147 and 188. ASSESSMENT: 1. Rapid atrial fibrillation. 2. Clostridium difficile colitis. 3. Hypokalemia. 4. Uncontrolled diabetes mellitus. 5. Depression. RECOMMENDATIONS: Continue Cardizem 60 mg three times a day, Eliquis 2.5 mg twice a day, Flagyl 500 mg intravenously every 8 hours, Norvasc 5 mg once a day, Lopressor 50 mg twice a day, oral vancomycin 125 mg four times daily. I will obtain 12-lead EKG now. Sukhdev Dave MD
[2019-01-20] MEDS: metroNIDAZOLE IV 500 mg/100 ml 500 MG/100 ML BAG IVPB SCH ×3 (05:25→22:00)
[2019-01-20] MEDS: (Novolin R) Insulin Human Regular 100 units/ml vial SC SCH ×4 (08:17→22:12)
[2019-01-20] MEDS: Potassium Chloride 20 mEq/15 ml LIQ UD PO SCH (10:09)
[2019-01-20] MEDS: Megestrol Acetate 40 mg/ml Cup PO SCH (10:10)
[2019-01-20] MEDS: Vancomycin Hydrochloride 125 mg Capsule (Oral) PO SCH ×4 (10:10→22:13)
--- NOTE | 2019-01-20 13:33 | CP.PCM.PN ---
Subjective - Date & Time of Evaluation Date of Evaluation: 01/20/19 Time of Evaluation: 13:32 - Subjective Subjective: Diarrhea improving Continue Vanco + Dificid Objective - Vital Signs/Intake and Output Vital Signs (last 24 hours): Temp Pulse Resp BP Pulse Ox 98.7 F 140 H 20 127/76 96 01/20/19 07:00 01/20/19 07:00 01/20/19 07:00 01/20/19 10:10 01/20/19 07:00 Intake and Output: 01/20/19 01/20/19 06:59 18:59 Intake Total 520 Output Total 450 Balance 70 - Medications Medications: Current Medications Acetaminophen (Tylenol 325mg Tab) 650 mg PO Q8 PRN PRN Reason: Pain, Mild (1-3) Last Admin: 01/14/19 16:06 Dose: 650 mg Amlodipine Besylate (Norvasc) 5 mg PO DAILY [facility] Last Admin: 01/13/19 09:49 Dose: Not Given Apixaban (Eliquis) 2.5 mg PO BID [facility] Last Admin: 01/20/19 10:09 Dose: 2.5 mg Diltiazem HCl (Cardizem) 60 mg PO TID [facility] Last Admin: 01/20/19 10:09 Dose: 60 mg Famotidine (Pepcid) 20 mg PO DAILY [facility] Last Admin: 01/20/19 10:09 Dose: 20 mg Furosemide (Lasix) 20 mg IVP DAILY [facility] Last Admin: 01/20/19 10:10 Dose: 20 mg Hydrocortisone (Anusol-Hc) 25 mg RC BID PRN PRN Reason: Hemorrhoids Last Admin: 01/14/19 18:54 Dose: 25 mg Metronidazole (Flagyl) 500 mg in 100 mls @ 100 mls/hr IVPB Q8H [facility]; Protocol Last Admin: 01/20/19 05:25 Dose: 100 mls/hr Insulin Human Regular (Novolin R) 0 unit SC ACHS [facility]; Protocol Last Admin: 01/20/19 11:30 Dose: Not Given Megestrol Acetate (Megace) 400 mg PO DAILY [facility] Last Admin: 01/20/19 10:10 Dose: 400 mg Metoprolol Tartrate (Lopressor) 50 mg PO QPM [facility] Last Admin: 01/19/19 17:33 Dose: 50 mg Mirtazapine (Remeron) 30 mg PO HS [facility] Last Admin: 01/19/19 22:42 Dose: 30 mg Potassium Chloride (Potassium Chloride Oral Soln) 20 meq PO DAILY [facility] Last Admin: 01/20/19 10:09 Dose: 20 meq Vancomycin HCl (Vancocin 125mg Capsule) 125 mg PO QID [facility] Last Admin: 01/20/19 10:10 Dose: 125 mg Venlafaxine HCl (Effexor) 150 mg PO DAILY [facility] Last Admin: 01/20/19 10:09 Dose: 150 mg - Labs Labs: 01/15/19 10:51 01/18/19 07:45 PT 13.7 SECONDS (9.7-12.2) H 01/07/19 05:59 INR 1.3 01/07/19 05:59 APTT 25 SECONDS (21-34) 01/07/19 05:59 Assessment and Plan (1) Clostridium difficile colitis Assessment & Plan: Vanco/Dificid combination in Rehab F/U in 2 weeks as outpt Status: Acute
--- NOTE | 2019-01-20 19:49 | CP.PCM.PN ---
Subjective - Date & Time of Evaluation Date of Evaluation: 01/20/19 Time of Evaluation: 09:00 - Subjective Subjective: afeb still with diarrhea Objective - Vital Signs/Intake and Output Vital Signs (last 24 hours): Temp Pulse Resp BP Pulse Ox 98.5 F 100 H 20 120/75 96 01/20/19 15:00 01/20/19 15:00 01/20/19 15:00 01/20/19 15:00 01/20/19 15:00 Intake and Output: 01/20/19 01/21/19 18:59 06:59 Intake Total 300 Balance 300 - Medications Medications: Current Medications Acetaminophen (Tylenol 325mg Tab) 650 mg PO Q8 PRN PRN Reason: Pain, Mild (1-3) Last Admin: 01/14/19 16:06 Dose: 650 mg Amlodipine Besylate (Norvasc) 5 mg PO DAILY [facility] Last Admin: 01/13/19 09:49 Dose: Not Given Apixaban (Eliquis) 2.5 mg PO BID [facility] Last Admin: 01/20/19 18:00 Dose: 2.5 mg Diltiazem HCl (Cardizem) 60 mg PO TID [facility] Last Admin: 01/20/19 18:00 Dose: 60 mg Famotidine (Pepcid) 20 mg PO DAILY [facility] Last Admin: 01/20/19 10:09 Dose: 20 mg Furosemide (Lasix) 20 mg IVP DAILY [facility] Last Admin: 01/20/19 10:10 Dose: 20 mg Hydrocortisone (Anusol-Hc) 25 mg RC BID PRN PRN Reason: Hemorrhoids Last Admin: 01/14/19 18:54 Dose: 25 mg Metronidazole (Flagyl) 500 mg in 100 mls @ 100 mls/hr IVPB Q8H [facility]; Protocol Last Admin: 01/20/19 13:49 Dose: 100 mls/hr Insulin Human Regular (Novolin R) 0 unit SC ACHS [facility]; Protocol Last Admin: 01/20/19 16:30 Dose: 1 units Megestrol Acetate (Megace) 400 mg PO DAILY [facility] Last Admin: 01/20/19 10:10 Dose: 400 mg Metoprolol Tartrate (Lopressor) 50 mg PO BID [facility] Last Admin: 01/20/19 18:00 Dose: 50 mg Mirtazapine (Remeron) 30 mg PO HS [facility] Last Admin: 01/19/19 22:42 Dose: 30 mg Potassium Chloride (Potassium Chloride Oral Soln) 20 meq PO DAILY [facility] Last Admin: 01/20/19 10:09 Dose: 20 meq Vancomycin HCl (Vancocin 125mg Capsule) 125 mg PO QID [facility] Last Admin: 01/20/19 18:02 Dose: 125 mg Venlafaxine HCl (Effexor) 150 mg PO DAILY [facility] Last Admin: 01/20/19 10:09 Dose: 150 mg - Labs Labs: 01/15/19 10:51 01/18/19 07:45 PT 13.7 SECONDS (9.7-12.2) H 01/07/19 05:59 INR 1.3 01/07/19 05:59 APTT 25 SECONDS (21-34) 01/07/19 05:59 - Constitutional Appears: No Acute Distress, Cachectic, Chronically Ill - Head Exam Head Exam: ATRAUMATIC, NORMAL INSPECTION, NORMOCEPHALIC - Eye Exam Eye Exam: EOMI, Normal appearance, PERRL Pupil Exam: NORMAL ACCOMODATION, PERRL - ENT Exam ENT Exam: Mucous Membranes Moist, Normal Exam - Neck Exam Neck Exam: Full ROM, Normal Inspection. absent: Lymphadenopathy - Respiratory Exam Respiratory Exam: Clear to Ausculation Bilateral, NORMAL BREATHING PATTERN - Cardiovascular Exam Cardiovascular Exam: REGULAR RHYTHM, +S1, +S2. absent: Murmur - GI/Abdominal Exam GI & Abdominal Exam: Soft, Normal Bowel Sounds. absent: Tenderness - Rectal Exam Rectal Exam: Deferred - Exam Exam: NORMAL INSPECTION - Extremities Exam Extremities Exam: Full ROM, Normal Capillary Refill, Normal Inspection. absent: Joint Swelling, Pedal Edema - Back Exam Back Exam: NORMAL INSPECTION - Neurological Exam Neurological Exam: Alert, Awake, CN II-XII Intact - Psychiatric Exam Psychiatric exam: Normal Affect, Normal Mood - Skin Skin Exam: Dry, Intact, Normal Color, Warm Assessment and Plan (1) Abdominal pain Status: Acute (2) Colitis Status: Acute (3) Sepsis Status: Acute (4) Depressed Status: Acute (5) Renal insufficiency Status: Acute (6) Change in mental status Status: Chronic (7) Dementia Status: Chronic - Assessment and Plan (Free Text) Assessment: cont rx cdiff colitis cont hydration GI follow up
--- NOTE | 2019-01-20 23:35 | PN ---
DATE: 01/20/2019 SUBJECTIVE: The patient is seen. The patient is doing much better upon the resumption of Effexor and the Remeron combination. She is trying to eat. Diarrhea has improved. She is more cooperative, verbal. The patient has also agreed to go for subacute rehab. REVIEW OF SYSTEMS: The patient is more alert, verbal, seen in her room, more cooperative, and trying to eat. Appetite, however, is still variable. PHYSICAL EXAMINATION: VITAL SIGNS: Temperature 98.7, the patient is tachycardic, pulse rate is 140, blood pressure 127/80, respirations 20, and oxygen saturation is 96%. SKIN: No diaphoresis. HEENT: No headache, no dizziness. NECK: Supple. RESPIRATORY: No dyspnea. CARDIOVASCULAR: No chest pain. GASTROINTESTINAL: Diarrhea has improved. Her appetite seems to be improving. MUSCULOSKELETAL: Feels weak. NEUROLOGIC: Alert and oriented x3. She is more responsive today. GENITOURINARY: No dysuria. MENTAL STATUS EXAMINATION: An elderly female of [place] descent, seen in her room with staff. Speech is spontaneous, more verbal. Affect is reactive. Mood is bright, less depressed. Thought process, coherent. Thought content, the patient has no psychosis. No suicidal or homicidal ideations. Attention and memory seem to be fair. Insight and judgment fair. Impulse control is fair. IMPRESSION: History of recurrent depression, anxiety as well as history of pseudomembranous colitis. PLAN AND RECOMMENDATIONS: The patient is seen. Meds reviewed. Continue present psych medications. The patient to go for subacute rehab once medically cleared. Psych martin, she needs to continue both her psych medications, Effexor 150 mg daily and the Remeron 30 mg at bedtime. Continue Flagyl for her colitis treatment. Alexandre Kumari MD
--- NOTE | 2019-01-21 00:42 | PN ---
DATE: 01/20/2019 SUBJECTIVE: The patient is still depressed. She denies any dizziness. PHYSICAL EXAMINATION: VITAL SIGNS: Blood pressure 127/80, heart rate 148, temperature 97.8, respirations 20. HEENT: Normocephalic. CHEST: Clear. HEART: S1, S2. Regular. EXTREMITIES: No edema. LABORATORY DATA: Today's blood sugars are 144 and 234 respectively. ASSESSMENT: 1. Rapid atrial fibrillation. 2. Clostridium difficile colitis. 3. Depression. 4. Uncontrolled diabetes mellitus. RECOMMENDATIONS: Continue Cardizem at 60 mg three times a day; and the most recent heart rate on my evaluation was under control. Continue Eliquis 2.5 mg twice a day, IV Flagyl 500 mg every 8 hours, IV Lasix 20 mg once a day, Lopressor will be increased to 50 mg twice a day. Continue Norvasc 5 mg daily. Continue oral vancomycin at 125 mg four times daily. Sukhdev Dave MD
[2019-01-21] MEDS: metroNIDAZOLE IV 500 mg/100 ml 500 MG/100 ML BAG IVPB SCH ×3 (06:52→21:31)
[2019-01-21] MEDS: (Novolin R) Insulin Human Regular 100 units/ml vial SC SCH ×4 (07:40→21:31)
--- NOTE | 2019-01-21 09:37 | CP.PCM.PN ---
Subjective - Date & Time of Evaluation Date of Evaluation: 01/21/19 Time of Evaluation: 09:20 - Subjective Subjective: f/u diarrhea.. Reports still has diarrhea Denies RB, melena, fever, chills, SZ, LOC,GARCIA, hematuria, hemoptysis Objective - Vital Signs/Intake and Output Vital Signs (last 24 hours): Temp Pulse Resp BP Pulse Ox 98.9 F 89 20 110/78 94 L 01/21/19 07:15 01/21/19 07:15 01/21/19 07:15 01/21/19 07:15 01/21/19 07:15 Intake and Output: 01/21/19 01/21/19 06:59 18:59 Output Total 600 Balance -600 - Medications Medications: Current Medications Acetaminophen (Tylenol 325mg Tab) 650 mg PO Q8 PRN PRN Reason: Pain, Mild (1-3) Last Admin: 01/14/19 16:06 Dose: 650 mg Amlodipine Besylate (Norvasc) 5 mg PO DAILY [facility] Last Admin: 01/13/19 09:49 Dose: Not Given Apixaban (Eliquis) 2.5 mg PO BID [facility] Last Admin: 01/20/19 18:00 Dose: 2.5 mg Diltiazem HCl (Cardizem) 60 mg PO TID [facility] Last Admin: 01/20/19 18:00 Dose: 60 mg Famotidine (Pepcid) 20 mg PO DAILY [facility] Last Admin: 01/20/19 10:09 Dose: 20 mg Furosemide (Lasix) 20 mg IVP DAILY [facility] Last Admin: 01/20/19 10:10 Dose: 20 mg Hydrocortisone (Anusol-Hc) 25 mg RC BID PRN PRN Reason: Hemorrhoids Last Admin: 01/14/19 18:54 Dose: 25 mg Metronidazole (Flagyl) 500 mg in 100 mls @ 100 mls/hr IVPB Q8H [facility]; Protocol Last Admin: 01/21/19 06:52 Dose: 100 mls/hr Insulin Human Regular (Novolin R) 0 unit SC ACHS [facility]; Protocol Last Admin: 01/20/19 22:12 Dose: Not Given Megestrol Acetate (Megace) 400 mg PO DAILY [facility] Last Admin: 01/20/19 10:10 Dose: 400 mg Metoprolol Tartrate (Lopressor) 50 mg PO BID [facility] Last Admin: 01/20/19 18:00 Dose: 50 mg Mirtazapine (Remeron) 30 mg PO HS [facility] Last Admin: 01/20/19 22:00 Dose: 30 mg Potassium Chloride (Potassium Chloride Oral Soln) 20 meq PO DAILY [facility] Last Admin: 01/20/19 10:09 Dose: 20 meq Vancomycin HCl (Vancocin 125mg Capsule) 125 mg PO QID [facility] Last Admin: 01/20/19 22:13 Dose: 125 mg Venlafaxine HCl (Effexor) 150 mg PO DAILY [facility] Last Admin: 01/20/19 10:09 Dose: 150 mg - Labs Labs: 01/15/19 10:51 01/18/19 07:45 PT 13.7 SECONDS (9.7-12.2) H 01/07/19 05:59 INR 1.3 01/07/19 05:59 APTT 25 SECONDS (21-34) 01/07/19 05:59 - Constitutional Appears: Non-toxic - Respiratory Exam Respiratory Exam: Clear to Ausculation Bilateral - Cardiovascular Exam Cardiovascular Exam: RRR - GI/Abdominal Exam GI & Abdominal Exam: Soft, Normal Bowel Sounds. absent: Tenderness - Extremities Exam Extremities Exam: absent: Pedal Edema - Neurological Exam Neurological Exam: Alert, Awake Assessment and Plan (1) Depression Status: Acute (2) Anemia Assessment & Plan: stable Status: Acute (3) Abdominal pain Assessment & Plan: better Status: Acute (4) Colitis Assessment & Plan: c diff. On flagyl iV, on vancdo po. Follow if diarrhea is improving. Consider questran. Status: Acute (5) Sepsis Status: Acute (6) Renal insufficiency Status: Acute (7) Rectal bleed Status: Acute (8) Atrial fibrillation Status: Acute
[2019-01-21] MEDS: Megestrol Acetate 40 mg/ml Cup PO SCH (10:47)
[2019-01-21] MEDS: Potassium Chloride 20 mEq/15 ml LIQ UD PO SCH (10:47)
[2019-01-21] MEDS: Vancomycin Hydrochloride 125 mg Capsule (Oral) PO SCH ×2 (10:49→13:52)
--- NOTE | 2019-01-21 11:16 | CP.PCM.PN ---
Subjective - Date & Time of Evaluation Date of Evaluation: 01/21/19 Time of Evaluation: 11:14 - Subjective Subjective: still has diarhea spoke to dr hobbs she still need isolation Objective - Vital Signs/Intake and Output Vital Signs (last 24 hours): Temp Pulse Resp BP Pulse Ox 98.9 F 89 20 138/72 94 L 01/21/19 07:15 01/21/19 07:15 01/21/19 07:15 01/21/19 10:47 01/21/19 07:15 Intake and Output: 01/21/19 01/21/19 06:59 18:59 Output Total 600 Balance -600 - Medications Medications: Current Medications Acetaminophen (Tylenol 325mg Tab) 650 mg PO Q8 PRN PRN Reason: Pain, Mild (1-3) Last Admin: 01/14/19 16:06 Dose: 650 mg Amlodipine Besylate (Norvasc) 5 mg PO DAILY [facility] Last Admin: 01/13/19 09:49 Dose: Not Given Apixaban (Eliquis) 2.5 mg PO BID [facility] Last Admin: 01/21/19 10:47 Dose: 2.5 mg Diltiazem HCl (Cardizem) 60 mg PO TID [facility] Last Admin: 01/21/19 10:47 Dose: 60 mg Famotidine (Pepcid) 20 mg PO DAILY [facility] Last Admin: 01/21/19 10:46 Dose: 20 mg Furosemide (Lasix) 20 mg IVP DAILY [facility] Last Admin: 01/21/19 10:47 Dose: 20 mg Hydrocortisone (Anusol-Hc) 25 mg RC BID PRN PRN Reason: Hemorrhoids Last Admin: 01/14/19 18:54 Dose: 25 mg Metronidazole (Flagyl) 500 mg in 100 mls @ 100 mls/hr IVPB Q8H [facility]; Protocol Last Admin: 01/21/19 06:52 Dose: 100 mls/hr Insulin Human Regular (Novolin R) 0 unit SC ACHS [facility]; Protocol Last Admin: 01/20/19 22:12 Dose: Not Given Megestrol Acetate (Megace) 400 mg PO DAILY [facility] Last Admin: 01/21/19 10:47 Dose: 400 mg Metoprolol Tartrate (Lopressor) 50 mg PO BID [facility] Last Admin: 01/21/19 10:49 Dose: 50 mg Mirtazapine (Remeron) 30 mg PO HS [facility] Last Admin: 01/20/19 22:00 Dose: 30 mg Potassium Chloride (Potassium Chloride Oral Soln) 20 meq PO DAILY [facility] Last Admin: 01/21/19 10:47 Dose: 20 meq Vancomycin HCl (Vancocin 125mg Capsule) 125 mg PO QID [facility] Last Admin: 01/21/19 10:49 Dose: 125 mg Venlafaxine HCl (Effexor) 150 mg PO DAILY [facility] Last Admin: 01/21/19 10:46 Dose: 150 mg - Labs Labs: 01/15/19 10:51 01/18/19 07:45 PT 13.7 SECONDS (9.7-12.2) H 01/07/19 05:59 INR 1.3 01/07/19 05:59 APTT 25 SECONDS (21-34) 01/07/19 05:59 - Constitutional Appears: No Acute Distress - Head Exam Head Exam: ATRAUMATIC - Eye Exam Eye Exam: Normal appearance Pupil Exam: NORMAL ACCOMODATION - ENT Exam ENT Exam: Mucous Membranes Moist - Neck Exam Neck Exam: Full ROM - Respiratory Exam Respiratory Exam: Clear to Ausculation Bilateral - Cardiovascular Exam Cardiovascular Exam: REGULAR RHYTHM - GI/Abdominal Exam GI & Abdominal Exam: Normal Bowel Sounds - Exam Exam: NORMAL INSPECTION - Extremities Exam Extremities Exam: Full ROM, Normal Capillary Refill Assessment and Plan - Assessment and Plan (Free Text) Assessment: membranous colitis depresion poor apeitie Plan: cont treatment
[2019-01-21 11:59] LABS: BASO # 0.1 K/uL (0.0-0.2); BASO % 0.5 % (0.0-2.0); HEMOGLOBIN 9.3 g/dL (11.0-16.0); LYMPH # 2.2 K/uL (1.0-4.3); LYMPH % 19.7 % (20.0-40.0); MEAN CELL VOLUME 84.2 fL (81.0-99.0); MEAN CORPUSCULAR HEMOGLOBIN 26.9 pg (27.0-31.0); MONO # 0.5 K/uL (0.0-0.8); MONO % 4.6 % (0.0-10.0); NEUT # 8.2 K/uL (1.8-7.0); NEUT % 75.2 % (50.0-75.0); RBC 3.46 Mil/uL (3.80-5.20); RED CELL DISTRIBUTION WIDTH 22.1 % (11.5-14.5); WHITE BLOOD COUNT 10.9 K/uL (4.8-10.8)
[2019-01-21 12:16] LABS: ALB/GLOB RATIO 1.1 (1.0-2.1); ALBUMIN 3.3 g/dL (3.5-5.0); ALT/SGPT < 6 U/L (9-52); AST/SGOT 15 U/L (14-36); BLOOD UREA NITROGEN 13 mg/dL (7-17); CALCIUM 8.2 mg/dl (8.6-10.4); GFR NON-AFRICAN AMERICAN > 60
--- NOTE | 2019-01-21 19:20 | PN ---
DATE: 01/21/2019 SUBJECTIVE: The patient is still depressed with very poor oral intake. She denies any chest pain. PHYSICAL EXAMINATION: VITAL SIGNS: Blood pressure 132/72, heart rate 130, temperature 98.5, respirations 20. HEENT: Pale conjunctivae. CHEST: Diminished breath sounds over the bases. HEART: S1 and S2, regular. ABDOMEN: Soft. EXTREMITIES: Trace leg edema. LABORATORY DATA: Today's hemoglobin and hematocrit 9.3 and 29.2, white count 10.9 and platelet count 346,000. Today's SMA-7 is within normal limits, except for glucose of 193 and chloride 110. ASSESSMENT: 1. Rapid atrial fibrillation. 2. Depression. 3. Clostridium difficile colitis. 4. Anemia. RECOMMENDATIONS: Continue Cardizem at 60 mg t.i.d., Eliquis 2.5 mg twice a day, Lasix 20 mg intravenously daily, Flagyl 500 mg intravenously every 8 hours, KCl 20 mEq orally daily in Elixir format. I requested to place the patient on telemetry and I will consider oral therapy if the patient remains in rapid atrial fibrillation. Sukhdev Dave MD
--- NOTE | 2019-01-22 00:34 | PN ---
DATE: 01/21/2019 SUBJECTIVE: The patient is seen. The patient's mood continuous to improve, although her appetite is still poor. However, the patient is still taking Flagyl for colitis. This medicine can cause loss of appetite. Mood-martin, she is doing better. She is trying to eat. The patient is back on dual-antidepressants, Remeron 30 mg at bedtime, Effexor 150 mg daily. The patient is willing to go for subacute rehab once she is medically stable and reporting no diarrhea today. REVIEW OF SYSTEMS: The patient is alert, verbal and interactive, seen in her room. She states that she is taking her meds. PHYSICAL EXAMINATION: VITAL SIGNS: Temperature 97.2, pulse 75, blood pressure 121/59, respirations 20, and oxygen saturations 96%. SKIN: No diaphoresis. HEENT: No headache. No dizziness. NECK: Supple. RESPIRATORY: No dyspnea. CARDIOVASCULAR: No chest pain. GASTROINTESTINAL: Diarrhea has improved, but appetite is still poor, but could be drug-induced secondary to the Flagyl. EXTREMITIES: The patient has been bedbound. MUSCULOSKELETAL: Feels weak. NEUROLOGICAL: Alert, forgetful at times. GENITOURINARY: No dysuria. MENTAL STATUS EXAMINATION: This is an elderly female who looks stated age, oriented x2. Speech spontaneous. Affect is reactive. Mood is bright. Though process is coherent. Though content, no overt psychosis. No suicidal or homicidal ideation. Attention and memory seem to be limited at times. Insight and judgement fair. Impulse control fair. IMPRESSION: History of recurrent depression, anxiety, as well as pseudomembranous colitis. Continue present management as ordered. Continue treatment plan as outlined. Once the patient is medically stable, and once her colitis has been fully treated, the patient to go to [facility] for subacute rehab. Alexandre Kumari MD
[2019-01-22] MEDS: metroNIDAZOLE IV 500 mg/100 ml 500 MG/100 ML BAG IVPB SCH ×3 (06:12→21:16)
[2019-01-22] MEDS: (Novolin R) Insulin Human Regular 100 units/ml vial SC SCH ×4 (09:30→21:29)
[2019-01-22] MEDS: Potassium Chloride 20 mEq/15 ml LIQ UD PO SCH (09:31)
[2019-01-22] MEDS: Megestrol Acetate 40 mg/ml Cup PO SCH (09:32)
--- NOTE | 2019-01-22 09:44 | CP.PCM.PN ---
Subjective - Date & Time of Evaluation Date of Evaluation: 01/22/19 Time of Evaluation: 09:20 - Subjective Subjective: f/u diarrhea Still diarrhea. POOR APPETITE Denies RB, melena, CP, SOB, fever, chills, GARCIA, cough, tremor, hematuria Objective - Vital Signs/Intake and Output Vital Signs (last 24 hours): Temp Pulse Resp BP Pulse Ox 97.4 F L 132 H 20 144/83 98 01/22/19 08:00 01/22/19 08:00 01/22/19 08:00 01/22/19 09:31 01/22/19 08:00 Intake and Output: 01/22/19 01/22/19 06:59 18:59 Intake Total 100 Balance 100 - Medications Medications: Current Medications Acetaminophen (Tylenol 325mg Tab) 650 mg PO Q8 PRN PRN Reason: Pain, Mild (1-3) Last Admin: 01/14/19 16:06 Dose: 650 mg Amlodipine Besylate (Norvasc) 5 mg PO DAILY [facility] Last Admin: 01/13/19 09:49 Dose: Not Given Apixaban (Eliquis) 2.5 mg PO BID [facility] Last Admin: 01/22/19 09:32 Dose: 2.5 mg Diltiazem HCl (Cardizem) 60 mg PO TID [facility] Last Admin: 01/22/19 09:32 Dose: 60 mg Famotidine (Pepcid) 20 mg PO DAILY [facility] Last Admin: 01/22/19 09:32 Dose: 20 mg Furosemide (Lasix) 20 mg IVP DAILY [facility] Last Admin: 01/22/19 09:31 Dose: 20 mg Hydrocortisone (Anusol-Hc) 25 mg RC BID PRN PRN Reason: Hemorrhoids Last Admin: 01/14/19 18:54 Dose: 25 mg Metronidazole (Flagyl) 500 mg in 100 mls @ 100 mls/hr IVPB Q8H [facility]; Protocol Last Admin: 01/22/19 06:12 Dose: 100 mls/hr Insulin Human Regular (Novolin R) 0 unit SC ACHS [facility]; Protocol Last Admin: 01/22/19 09:30 Dose: Not Given Megestrol Acetate (Megace) 400 mg PO DAILY [facility] Last Admin: 01/22/19 09:32 Dose: 400 mg Metoprolol Tartrate (Lopressor) 50 mg PO BID [facility] Last Admin: 01/22/19 09:32 Dose: 50 mg Mirtazapine (Remeron) 30 mg PO HS [facility] Last Admin: 01/20/19 22:00 Dose: 30 mg Potassium Chloride (Potassium Chloride Oral Soln) 20 meq PO DAILY [facility] Last Admin: 01/22/19 09:31 Dose: 20 meq Venlafaxine HCl (Effexor) 150 mg PO DAILY [facility] Last Admin: 01/22/19 09:32 Dose: 150 mg - Labs Labs: 01/21/19 11:46 01/21/19 11:46 PT 13.7 SECONDS (9.7-12.2) H 01/07/19 05:59 INR 1.3 01/07/19 05:59 APTT 25 SECONDS (21-34) 01/07/19 05:59 - Constitutional Appears: Well - Neck Exam Neck Exam: absent: Tenderness - Respiratory Exam Respiratory Exam: Clear to Ausculation Bilateral - Cardiovascular Exam Cardiovascular Exam: RRR - GI/Abdominal Exam GI & Abdominal Exam: Soft, Normal Bowel Sounds. absent: Guarding, Tenderness, Hernia, Rebound - Extremities Exam Extremities Exam: absent: Pedal Edema - Neurological Exam Neurological Exam: Alert, Awake Assessment and Plan (1) Depression Assessment & Plan: f/u Psych Status: Acute (2) Anemia Assessment & Plan: stable Status: Acute (3) Abdominal pain Assessment & Plan: better Status: Acute (4) Colitis Assessment & Plan: c diff. Status: Acute (5) Sepsis Status: Acute (6) Renal insufficiency Status: Acute (7) Rectal bleed Status: Acute (8) Atrial fibrillation Status: Acute (9) Diarrhea Assessment & Plan: c difficile. But c diff has been improving- pt appears better and exam and albs are better. Consider other causes for diarrhea- Megace. Rec: Consider dicontinue flagyl COntinue vanco po consider questran Hold megace. Status: Acute (10) Poor appetite Status: Acute
--- NOTE | 2019-01-22 10:42 | CP.PCM.PN ---
Subjective - Date & Time of Evaluation Date of Evaluation: 01/22/19 Time of Evaluation: 10:39 - Subjective Subjective: pt on telemetry for tachcardia beter today Objective - Vital Signs/Intake and Output Vital Signs (last 24 hours): Temp Pulse Resp BP Pulse Ox 97.4 F L 132 H 20 144/83 98 01/22/19 08:00 01/22/19 08:00 01/22/19 08:00 01/22/19 09:31 01/22/19 08:00 Intake and Output: 01/22/19 01/22/19 06:59 18:59 Intake Total 100 Balance 100 - Medications Medications: Current Medications Acetaminophen (Tylenol 325mg Tab) 650 mg PO Q8 PRN PRN Reason: Pain, Mild (1-3) Last Admin: 01/14/19 16:06 Dose: 650 mg Amlodipine Besylate (Norvasc) 5 mg PO DAILY [facility] Last Admin: 01/13/19 09:49 Dose: Not Given Apixaban (Eliquis) 2.5 mg PO BID [facility] Last Admin: 01/22/19 09:32 Dose: 2.5 mg Diltiazem HCl (Cardizem) 60 mg PO TID [facility] Last Admin: 01/22/19 09:32 Dose: 60 mg Famotidine (Pepcid) 20 mg PO DAILY [facility] Last Admin: 01/22/19 09:32 Dose: 20 mg Furosemide (Lasix) 20 mg IVP DAILY [facility] Last Admin: 01/22/19 09:31 Dose: 20 mg Hydrocortisone (Anusol-Hc) 25 mg RC BID PRN PRN Reason: Hemorrhoids Last Admin: 01/14/19 18:54 Dose: 25 mg Metronidazole (Flagyl) 500 mg in 100 mls @ 100 mls/hr IVPB Q8H [facility]; Protocol Last Admin: 01/22/19 06:12 Dose: 100 mls/hr Insulin Human Regular (Novolin R) 0 unit SC ACHS [facility]; Protocol Last Admin: 01/22/19 09:30 Dose: Not Given Megestrol Acetate (Megace) 400 mg PO DAILY [facility] Last Admin: 01/22/19 09:32 Dose: 400 mg Metoprolol Tartrate (Lopressor) 50 mg PO BID [facility] Last Admin: 01/22/19 09:32 Dose: 50 mg Mirtazapine (Remeron) 30 mg PO [facility] Last Admin: 01/20/19 22:00 Dose: 30 mg Potassium Chloride (Potassium Chloride Oral Soln) 20 meq PO DAILY [facility] Last Admin: 01/22/19 09:31 Dose: 20 meq Venlafaxine HCl (Effexor) 150 mg PO DAILY [facility] Last Admin: 01/22/19 09:32 Dose: 150 mg - Labs Labs: 01/21/19 11:46 01/21/19 11:46 PT 13.7 SECONDS (9.7-12.2) H 01/07/19 05:59 INR 1.3 01/07/19 05:59 APTT 25 SECONDS (21-34) 01/07/19 05:59 - Constitutional Appears: Confused - Head Exam Head Exam: ATRAUMATIC - Eye Exam Eye Exam: Normal appearance Pupil Exam: NORMAL ACCOMODATION - ENT Exam ENT Exam: Normal Oropharynx - Neck Exam Neck Exam: Normal Inspection - Respiratory Exam Respiratory Exam: Clear to Ausculation Bilateral - Cardiovascular Exam Cardiovascular Exam: Tachycardia, REGULAR RHYTHM - GI/Abdominal Exam GI & Abdominal Exam: Normal Bowel Sounds - Back Exam Back Exam: NORMAL INSPECTION - Skin Skin Exam: Pallor Assessment and Plan - Assessment and Plan (Free Text) Assessment: tachycardia improving membranous colitis still has diarhea depresion poor apetite generalised weekness Plan: as per orders
[2019-01-22] MEDS ORDERED: Digoxin 500 mcg/2ml (0.5 mg/2ml) Inj IVP ONE (11:03)
[2019-01-22 11:41] VITALS: PULSE 125
--- NOTE | 2019-01-22 14:33 | PN ---
DATE: 01/22/2019 SUBJECTIVE: The patient seen in her room, still feeling weak, has poor appetite. The patient was supposed to be transferred for subacute rehab but had runs of atrial fibrillation and currently according to the nurse back on telemetry. The patient is not medically cleared to go to the subacute rehab. Psych-martin, we will keep her on the current dose of medication. The patient is still on Flagyl, which can worsen her appetite loss, but the patient needs her Flagyl for her colitis. REVIEW OF SYSTEMS: The patient is alert, verbal, seen in her room, trying to eat. The patient has had poor appetite. PHYSICAL EXAMINATION: VITAL SIGNS: Temperature 97.4, pulse rate 73, blood pressure 144/83, respirations 20, and oxygen saturations 98%. SKIN: No diaphoresis. HEENT: No headache. No dizziness. NECK: Supple. RESPIRATORY: No dyspnea. CARDIOVASCULAR: No chest pain. No palpitations. GASTROINTESTINAL: Appetite is still poor, but not reporting diarrhea. No abdominal pain. No nausea, no vomiting. EXTREMITIES: The patient has been bedbound for several weeks. MUSCULOSKELETAL: Generalized weakness. NEUROLOGICAL: Sleepy but arousable, oriented x3. MENTAL STATUS EXAMINATION: Elderly female of [place] descent, seen in her room. Mood is still depressed, has poor appetite. Affect is restricted. Speech is slow. Thought process, forgetful. Thought content, no overt psychosis. No suicidal or homicidal ideation. Attention and memory seem to be limited. Insight and judgement limited. Impulse control is fair at this time. IMPRESSION: History of recurrent depression, anxiety, pseudomembranous colitis, atrial fibrillation. PLAN AND RECOMMENDATIONS: The patient seen. Meds reviewed. Continue present psych meds. The patient is still unclear cardiac-martin. The patient having runs of atrial fibrillation. Once the patient is medically cleared, the patient may go to [facility] for subacute rehab. The patient needs to be cleared cardiac-martin. Alexandre Kumari MD MTDBrody
--- NOTE | 2019-01-22 16:01 | CP.PCM.PN ---
Subjective - Date & Time of Evaluation Date of Evaluation: 01/22/19 Time of Evaluation: 08:00 - Subjective Subjective: chart reviewed patient examined no new complaints orders signed Objective - Vital Signs/Intake and Output Vital Signs (last 24 hours): Temp Pulse Resp BP Pulse Ox 97.4 F L 119 H 20 144/83 98 01/22/19 08:00 01/22/19 10:00 01/22/19 08:00 01/22/19 09:31 01/22/19 08:00 Intake and Output: 01/22/19 01/22/19 06:59 18:59 Intake Total 100 Balance 100 - Medications Medications: Current Medications Acetaminophen (Tylenol 325mg Tab) 650 mg PO Q8 PRN PRN Reason: Pain, Mild (1-3) Last Admin: 01/14/19 16:06 Dose: 650 mg Amlodipine Besylate (Norvasc) 5 mg PO DAILY [facility] Last Admin: 01/13/19 09:49 Dose: Not Given Apixaban (Eliquis) 2.5 mg PO BID [facility] Last Admin: 01/22/19 09:32 Dose: 2.5 mg Diltiazem HCl (Cardizem) 90 mg PO TID [facility] Famotidine (Pepcid) 20 mg PO DAILY [facility] Last Admin: 01/22/19 09:32 Dose: 20 mg Furosemide (Lasix) 20 mg IVP DAILY [facility] Last Admin: 01/22/19 09:31 Dose: 20 mg Hydrocortisone (Anusol-Hc) 25 mg RC BID PRN PRN Reason: Hemorrhoids Last Admin: 01/14/19 18:54 Dose: 25 mg Metronidazole (Flagyl) 500 mg in 100 mls @ 100 mls/hr IVPB Q8H [facility]; Protocol Last Admin: 01/22/19 13:16 Dose: 100 mls/hr Insulin Human Regular (Novolin R) 0 unit SC ACHS [facility]; Protocol Last Admin: 01/22/19 11:41 Dose: Not Given Megestrol Acetate (Megace) 400 mg PO DAILY [facility] Last Admin: 01/22/19 09:32 Dose: 400 mg Metoprolol Tartrate (Lopressor) 50 mg PO BID [facility] Last Admin: 01/22/19 09:32 Dose: 50 mg Mirtazapine (Remeron) 30 mg PO HS [facility] Last Admin: 01/20/19 22:00 Dose: 30 mg Potassium Chloride (Potassium Chloride Oral Soln) 20 meq PO DAILY [facility] Last Admin: 01/22/19 09:31 Dose: 20 meq Venlafaxine HCl (Effexor) 150 mg PO DAILY [facility] Last Admin: 01/22/19 09:32 Dose: 150 mg - Labs Labs: 01/21/19 11:46 01/21/19 11:46 PT 13.7 SECONDS (9.7-12.2) H 01/07/19 05:59 INR 1.3 01/07/19 05:59 APTT 25 SECONDS (21-34) 01/07/19 05:59 - Constitutional Appears: Non-toxic, Cachectic, Chronically Ill - Head Exam Head Exam: ATRAUMATIC, NORMAL INSPECTION, NORMOCEPHALIC - Eye Exam Eye Exam: EOMI, Normal appearance, PERRL Pupil Exam: NORMAL ACCOMODATION, PERRL - ENT Exam ENT Exam: Mucous Membranes Moist, Normal Exam - Neck Exam Neck Exam: Full ROM, Normal Inspection. absent: Lymphadenopathy - Respiratory Exam Respiratory Exam: Clear to Ausculation Bilateral, NORMAL BREATHING PATTERN - Cardiovascular Exam Cardiovascular Exam: REGULAR RHYTHM, +S1, +S2. absent: Murmur - GI/Abdominal Exam GI & Abdominal Exam: Distended, Guarding, Soft, Tenderness, Diminished Bowel Sounds - Rectal Exam Rectal Exam: Deferred - Exam Exam: NORMAL INSPECTION - Extremities Exam Extremities Exam: Full ROM, Normal Capillary Refill, Normal Inspection. absent: Joint Swelling, Pedal Edema - Back Exam Back Exam: NORMAL INSPECTION - Neurological Exam Neurological Exam: Alert, Awake, CN II-XII Intact, Normal Gait, Oriented x3 - Psychiatric Exam Psychiatric exam: Normal Affect, Normal Mood - Skin Skin Exam: Dry, Intact, Normal Color, Warm Assessment and Plan (1) Abdominal pain Status: Acute (2) Colitis Status: Acute (3) Sepsis Status: Acute (4) Depressed Status: Acute (5) Renal insufficiency Status: Acute (6) Change in mental status Status: Chronic (7) Dementia Status: Resolved - Assessment and Plan (Free Text) Assessment: c diff improving since patient has had symptoms for over 4 weeks will need fci PO Vanco for 6-8 weeks tapering dose
--- NOTE | 2019-01-22 23:23 | PN ---
DATE: 01/22/2019 SUBJECTIVE: The patient was in rapid atrial fibrillation earlier and I ordered 0.25 mg of IV digoxin with improvement to the heart rate. The patient denies any chest pain or dizziness. PHYSICAL EXAMINATION: VITAL SIGNS: Blood pressure 144/83, heart rate 119, temperature 97.4, respirations 20. HEENT: Normocephalic. CHEST: Clear. HEART: S1 and S2 regular. ABDOMEN: Soft. EXTREMITIES: No edema. LABORATORY DATA: Today's blood sugars are 153 and 182 respectively. ASSESSMENT: 1. Rapid atrial fibrillation. 2. Clostridium difficile colitis. 3. Depression. 4. Hypertension. 5. Anemia. RECOMMENDATIONS: Continue Eliquis 2.5 mg a day, Lopressor 50 mg once a day. Increase Cardizem to 90 mg t.i.d. Continue Lasix 20 mg intravenously once a day, Norvasc 5 mg once a day. Case was discussed with the patient's brother at the bedside. Sukhdev Dave MD
[2019-01-23] MEDS: metroNIDAZOLE IV 500 mg/100 ml 500 MG/100 ML BAG IVPB SCH ×3 (05:33→22:33)
[2019-01-23] MEDS: (Novolin R) Insulin Human Regular 100 units/ml vial SC SCH ×4 (08:00→22:30)
[2019-01-23] MEDS: Vancomycin Hydrochloride 250 mg Capsule (Oral) PO SCH ×4 (10:00→22:33)
[2019-01-23] MEDS: Potassium Chloride 20 mEq/15 ml LIQ UD PO SCH (10:31)
[2019-01-23] MEDS: Megestrol Acetate 40 mg/ml Cup PO SCH (10:31)
--- NOTE | 2019-01-23 16:06 | CP.PCM.PN ---
Subjective - Date & Time of Evaluation Date of Evaluation: 01/23/19 Time of Evaluation: 16:05 - Subjective Subjective: No diarrhea today Objective - Vital Signs/Intake and Output Vital Signs (last 24 hours): Temp Pulse Resp BP Pulse Ox 97.8 F 84 20 147/82 95 01/23/19 08:00 01/23/19 10:00 01/23/19 08:00 01/23/19 10:32 01/23/19 08:00 - Medications Medications: Current Medications Acetaminophen (Tylenol 325mg Tab) 650 mg PO Q8 PRN PRN Reason: Pain, Mild (1-3) Last Admin: 01/14/19 16:06 Dose: 650 mg Amlodipine Besylate (Norvasc) 5 mg PO DAILY [facility] Last Admin: 01/13/19 09:49 Dose: Not Given Apixaban (Eliquis) 2.5 mg PO BID [facility] Last Admin: 01/23/19 10:30 Dose: 2.5 mg Diltiazem HCl (Cardizem) 90 mg PO TID [facility] Last Admin: 01/23/19 14:02 Dose: 90 mg Famotidine (Pepcid) 20 mg PO DAILY [facility] Last Admin: 01/23/19 10:31 Dose: 20 mg Furosemide (Lasix) 20 mg IVP DAILY [facility] Last Admin: 01/23/19 10:32 Dose: 20 mg Hydrocortisone (Anusol-Hc) 25 mg RC BID PRN PRN Reason: Hemorrhoids Last Admin: 01/14/19 18:54 Dose: 25 mg Metronidazole (Flagyl) 500 mg in 100 mls @ 100 mls/hr IVPB Q8H [facility]; Protocol Last Admin: 01/23/19 14:01 Dose: 100 mls/hr Insulin Human Regular (Novolin R) 0 unit SC ACHS [facility]; Protocol Last Admin: 01/23/19 11:51 Dose: Not Given Megestrol Acetate (Megace) 400 mg PO DAILY [facility] Last Admin: 01/23/19 10:31 Dose: 400 mg Metoprolol Tartrate (Lopressor) 50 mg PO BID [facility] Last Admin: 01/23/19 10:31 Dose: 50 mg Mirtazapine (Remeron) 30 mg PO HS [facility] Last Admin: 01/22/19 21:16 Dose: 30 mg Potassium Chloride (Potassium Chloride Oral Soln) 20 meq PO DAILY [facility] Last Admin: 01/23/19 10:31 Dose: 20 meq Vancomycin HCl (Vancocin 250mg Capsule) 250 mg PO QID [facility] Stop: 04/08/19 07:00 Last Admin: 01/23/19 14:01 Dose: 250 mg Venlafaxine HCl (Effexor) 150 mg PO DAILY [facility] Last Admin: 01/23/19 10:30 Dose: 150 mg - Labs Labs: 01/21/19 11:46 01/21/19 11:46 PT 13.7 SECONDS (9.7-12.2) H 01/07/19 05:59 INR 1.3 01/07/19 05:59 APTT 25 SECONDS (21-34) 01/07/19 05:59 - Head Exam Head Exam: NORMAL INSPECTION - Respiratory Exam Respiratory Exam: NORMAL BREATHING PATTERN - Cardiovascular Exam Cardiovascular Exam: REGULAR RHYTHM - GI/Abdominal Exam GI & Abdominal Exam: Soft. absent: Distended, Tenderness Assessment and Plan (1) Clostridium difficile colitis Assessment & Plan: Clinically improving Continue Vancomycin Status: Acute
--- NOTE | 2019-01-23 17:30 | PN ---
DATE: 01/23/2019 SUBJECTIVE: The patient is seen. The patient still has poor appetite, and according to the nurse, did have 1 bout of loose bowel movement. The patient is trying to eat, but the patient is taking Flagyl, which can kill her appetite despite taking Megace. The patient is still willing to go for subacute rehab once medically stable. According to the nurse, the patient is still having runs of atrial fibrillation, not medically stable to go to subacute rehab at this time due to medical problems. REVIEW OF SYSTEMS: The patient seen in her room. She is responsive when asked still feels weak, but knows she is in the hospital. The patient still has poor appetite. PHYSICAL EXAMINATION: VITAL SIGNS: Temperature 97.8, pulse 121, blood pressure 147/82, respirations 20, and oxygen saturations 95%. SKIN: No diaphoresis. HEENT: No headache. No dizziness. NECK: Supple. RESPIRATORY: No dyspnea. CARDIOVASCULAR: No chest pain. GASTROINTESTINAL: The patient has loose bowel movement. No abdominal pain. Appetite is still poor. EXTREMITIES: The patient has been mostly bed bound. MUSCULOSKELETAL: Feels weak. NEUROLOGICAL: Alert, with periods of confusion at times. GENITOURINARY: No dysuria. MENTAL STATUS EXAMINATION: Elderly female, who looks stated age. Oriented x2. Mood is dysphoric, depressed. Affect is reactive. Speech is spontaneous. Though process, mostly coherent. Thought content, no overt psychosis. No suicidal or homicidal ideation. Attention and memory seem to be limited. Insight and judgment limited. Impulse control is fair at this time. IMPRESSION: History of recurrent depression, anxiety, seizures, pseudomembranous colitis, and anorexia. PLAN AND RECOMMENDATIONS: The patient is seen. Meds reviewed. Continue present management. The patient is still not medically cleared to go for subacute rehab at this time. The patient is still having atrial fibrillation and also still taking IV antibiotics for her pseudomembranous colitis. For now, we will continue her current psych meds as ordered. Alexandre Kumari MD
--- NOTE | 2019-01-23 18:10 | CP.PCM.PN ---
Subjective - Date & Time of Evaluation Date of Evaluation: 01/23/19 Time of Evaluation: 18:07 - Subjective Subjective: has diahrea now but one time today yesterday was 4 times feels beter but weeke in bed all the time Objective - Vital Signs/Intake and Output Vital Signs (last 24 hours): Temp Pulse Resp BP Pulse Ox 98 F 74 20 130/82 98 01/23/19 15:30 01/23/19 15:30 01/23/19 15:30 01/23/19 15:30 01/23/19 15:30 - Medications Medications: Current Medications Acetaminophen (Tylenol 325mg Tab) 650 mg PO Q8 PRN PRN Reason: Pain, Mild (1-3) Last Admin: 01/14/19 16:06 Dose: 650 mg Amlodipine Besylate (Norvasc) 5 mg PO DAILY [facility] Last Admin: 01/13/19 09:49 Dose: Not Given Apixaban (Eliquis) 2.5 mg PO BID [facility] Last Admin: 01/23/19 17:17 Dose: 2.5 mg Diltiazem HCl (Cardizem) 90 mg PO TID [facility] Last Admin: 01/23/19 17:17 Dose: 90 mg Famotidine (Pepcid) 20 mg PO DAILY [facility] Last Admin: 01/23/19 10:31 Dose: 20 mg Furosemide (Lasix) 20 mg IVP DAILY [facility] Last Admin: 01/23/19 10:32 Dose: 20 mg Hydrocortisone (Anusol-Hc) 25 mg RC BID PRN PRN Reason: Hemorrhoids Last Admin: 01/14/19 18:54 Dose: 25 mg Metronidazole (Flagyl) 500 mg in 100 mls @ 100 mls/hr IVPB Q8H [facility]; Protocol Last Admin: 01/23/19 14:01 Dose: 100 mls/hr Insulin Human Regular (Novolin R) 0 unit SC ACHS [facility]; Protocol Last Admin: 01/23/19 11:51 Dose: Not Given Megestrol Acetate (Megace) 400 mg PO DAILY [facility] Last Admin: 01/23/19 10:31 Dose: 400 mg Metoprolol Tartrate (Lopressor) 50 mg PO BID [facility] Last Admin: 01/23/19 17:17 Dose: 50 mg Mirtazapine (Remeron) 30 mg PO HS [facility] Last Admin: 01/22/19 21:16 Dose: 30 mg Potassium Chloride (Potassium Chloride Oral Soln) 20 meq PO DAILY [facility] Last Admin: 01/23/19 10:31 Dose: 20 meq Vancomycin HCl (Vancocin 250mg Capsule) 250 mg PO QID [facility] Stop: 04/08/19 07:00 Last Admin: 01/23/19 17:17 Dose: 250 mg Venlafaxine HCl (Effexor) 150 mg PO DAILY [facility] Last Admin: 01/23/19 10:30 Dose: 150 mg - Labs Labs: 01/21/19 11:46 01/21/19 11:46 PT 13.7 SECONDS (9.7-12.2) H 01/07/19 05:59 INR 1.3 01/07/19 05:59 APTT 25 SECONDS (21-34) 01/07/19 05:59 - Constitutional Appears: Non-toxic - Head Exam Head Exam: ATRAUMATIC - Eye Exam Eye Exam: Normal appearance Pupil Exam: NORMAL ACCOMODATION - ENT Exam ENT Exam: Mucous Membranes Moist - Neck Exam Neck Exam: Full ROM - Respiratory Exam Respiratory Exam: Clear to Ausculation Bilateral - Cardiovascular Exam Cardiovascular Exam: Tachycardia, REGULAR RHYTHM - GI/Abdominal Exam GI & Abdominal Exam: Normal Bowel Sounds - Exam Exam: NORMAL INSPECTION - Back Exam Back Exam: NORMAL INSPECTION - Neurological Exam Neurological Exam: Alert, Awake - Psychiatric Exam Psychiatric exam: Normal Affect - Skin Skin Exam: Pallor Assessment and Plan - Assessment and Plan (Free Text) Assessment: membranous colitis diarehea c dif depresion poor apetite generalised weekness Plan: order pt
--- NOTE | 2019-01-23 21:54 | PN ---
DATE: 01/23/2019 SUBJECTIVE: The patient is currently in atrial fibrillation with controlled ventricular response. She denied any dizziness or palpitation. She denies any chest pain. PHYSICAL EXAMINATION: VITAL SIGNS: Blood pressure 147/82, heart rate 84, temperature 97.8, respirations 20. HEENT: Normocephalic. CHEST: Clear. HEART: S1 and S2 regular. EXTREMITIES: No edema. LABORATORY DATA: Today's blood sugars are 155 and 145 respectively. ASSESSMENT: 1. Persistent atrial fibrillation. 2. Clostridium difficile colitis. 3. Depression. 4. Uncontrolled diabetes mellitus. 5. Hypertension. RECOMMENDATIONS: Continue Cardizem at 90 mg t.i.d., Eliquis 2.5 mg twice a day, intravenous Flagyl 500 mg intravenously every 8 hours, Lasix 20 mg intravenously daily, Lopressor 50 mg twice a day, Norvasc at 5 mg once a day, potassium chloride oral solution 20 mEq daily, and oral vancomycin at 250 mg four times a day. Sukhdev Dave MD
[2019-01-24] MEDS: metroNIDAZOLE IV 500 mg/100 ml 500 MG/100 ML BAG IVPB SCH ×2 (06:00→13:41)
[2019-01-24] MEDS: (Novolin R) Insulin Human Regular 100 units/ml vial SC SCH ×2 (07:44→12:42)
[2019-01-24] MEDS: Potassium Chloride 20 mEq/15 ml LIQ UD PO SCH (09:46)
[2019-01-24] MEDS: Megestrol Acetate 40 mg/ml Cup PO SCH (09:46)
[2019-01-24] MEDS: Vancomycin Hydrochloride 250 mg Capsule (Oral) PO SCH ×2 (09:47→13:41)
--- NOTE | 2019-01-24 10:42 | CP.PCM.PN ---
Subjective - Date & Time of Evaluation Date of Evaluation: 01/24/19 Time of Evaluation: 10:40 - Subjective Subjective: no diarehea today comfortable Objective - Vital Signs/Intake and Output Vital Signs (last 24 hours): Temp Pulse Resp BP Pulse Ox 98.1 F 128 H 18 136/84 96 01/24/19 07:00 01/24/19 07:00 01/24/19 07:00 01/24/19 09:48 01/24/19 07:00 Intake and Output: 01/24/19 01/24/19 06:59 18:59 Output Total 200 Balance -200 - Medications Medications: Current Medications Acetaminophen (Tylenol 325mg Tab) 650 mg PO Q8 PRN PRN Reason: Pain, Mild (1-3) Last Admin: 01/14/19 16:06 Dose: 650 mg Amlodipine Besylate (Norvasc) 5 mg PO DAILY [facility] Last Admin: 01/13/19 09:49 Dose: Not Given Apixaban (Eliquis) 2.5 mg PO BID [facility] Last Admin: 01/24/19 09:46 Dose: 2.5 mg Diltiazem HCl (Cardizem) 90 mg PO TID [facility] Last Admin: 01/24/19 09:46 Dose: 90 mg Famotidine (Pepcid) 20 mg PO DAILY [facility] Last Admin: 01/24/19 09:46 Dose: 20 mg Furosemide (Lasix) 20 mg IVP DAILY [facility] Last Admin: 01/24/19 09:48 Dose: 20 mg Hydrocortisone (Anusol-Hc) 25 mg RC BID PRN PRN Reason: Hemorrhoids Last Admin: 01/14/19 18:54 Dose: 25 mg Metronidazole (Flagyl) 500 mg in 100 mls @ 100 mls/hr IVPB Q8H [facility]; Protocol Last Admin: 01/24/19 06:00 Dose: 100 mls/hr Insulin Human Regular (Novolin R) 0 unit SC ACHS [facility]; Protocol Last Admin: 01/24/19 07:44 Dose: Not Given Megestrol Acetate (Megace) 400 mg PO DAILY [facility] Last Admin: 01/24/19 09:46 Dose: 400 mg Metoprolol Tartrate (Lopressor) 50 mg PO BID [facility] Last Admin: 01/24/19 09:46 Dose: 50 mg Mirtazapine (Remeron) 30 mg PO HS [facility] Last Admin: 01/23/19 22:33 Dose: 30 mg Potassium Chloride (Potassium Chloride Oral Soln) 20 meq PO DAILY [facility] Last Admin: 01/24/19 09:46 Dose: 20 meq Vancomycin HCl (Vancocin 250mg Capsule) 250 mg PO QID [facility] Stop: 04/08/19 07:00 Last Admin: 01/24/19 09:47 Dose: 250 mg Venlafaxine HCl (Effexor) 150 mg PO DAILY [facility] Last Admin: 01/24/19 09:47 Dose: 150 mg - Labs Labs: 01/21/19 11:46 01/21/19 11:46 PT 13.7 SECONDS (9.7-12.2) H 01/07/19 05:59 INR 1.3 01/07/19 05:59 APTT 25 SECONDS (21-34) 01/07/19 05:59 - Constitutional Appears: Non-toxic - Head Exam Head Exam: ATRAUMATIC - Eye Exam Eye Exam: Normal appearance Pupil Exam: NORMAL ACCOMODATION - ENT Exam ENT Exam: Mucous Membranes Moist - Neck Exam Neck Exam: Normal Inspection - Respiratory Exam Respiratory Exam: NORMAL BREATHING PATTERN - Cardiovascular Exam Cardiovascular Exam: REGULAR RHYTHM - GI/Abdominal Exam GI & Abdominal Exam: Normal Bowel Sounds - Exam Exam: NORMAL INSPECTION - Extremities Exam Extremities Exam: Calf Tenderness - Back Exam Back Exam: NORMAL INSPECTION - Neurological Exam Neurological Exam: Alert, Awake, Oriented x3 - Psychiatric Exam Psychiatric exam: Depressed, Normal Affect - Skin Skin Exam: Pallor Assessment and Plan - Assessment and Plan (Free Text) Assessment: membranous colitis improving depresion generalised weekness Plan: disc to rehab
--- NOTE | 2019-01-24 13:48 | PN ---
DATE: 01/24/2019 SUBJECTIVE: The patient is seen. The patient is still having poor appetite, but more cooperative with staff. Has been compliant with meds. She reports no diarrhea. The patient is still awaiting medical clearance to go for LE to [facility]. REVIEW OF SYSTEMS: The patient is sleepy, but arousable. Seen in her room resting. Not in acute respiratory distress. Appetite is still poor. PHYSICAL EXAMINATION: VITAL SIGNS: Temperature is 98.1, pulse 128, blood pressure 139/97, respirations 18, oxygen saturation is 96%. SKIN: No diaphoresis. HEENT: No headache, no dizziness. NECK: Supple. RESPIRATORY: No dyspnea. CARDIOVASCULAR: No chest pain. GASTROINTESTINAL: No diarrhea. EXTREMITIES: Has been bed bound for most of her stay. NEUROLOGIC: Drowsy, but arousable. Oriented x2. GENITOURINARY: No dysuria. MENTAL STATUS EXAMINATION: Elderly female, looks stated age, oriented x2. Mood is still depressed. Affect is restricted. Mood is dysphoric. Thought process, forgetful at times. Thought content, no overt psychosis. No suicidal or homicidal ideation. Attention and memory seem to be limited. Insight and judgment, limited. Impulse control is fair at this time. IMPRESSION: History of recurrent depression, anxiety, colitis, anorexia, debility. PLAN AND RECOMMENDATIONS: The patient is seen, meds reviewed. Continue present management. The patient is awaiting medical clearance to go for LE. At this time, the patient is to continue her current psych meds. Alexandre Kumari MD
--- NOTE | 2019-01-24 14:22 | CP.PCM.PN ---
Subjective - Date & Time of Evaluation Date of Evaluation: 01/24/19 Time of Evaluation: 14:00 - Subjective Subjective: f/u diarrhea Less diarrhea. Denies abd pain, CP, SOB, fever, chills, SZ, GARCIA. cough, hematuria, hemoptysis Objective - Vital Signs/Intake and Output Vital Signs (last 24 hours): Temp Pulse Resp BP Pulse Ox 98.1 F 128 H 18 136/84 96 01/24/19 07:00 01/24/19 07:00 01/24/19 07:00 01/24/19 09:48 01/24/19 07:00 Intake and Output: 01/24/19 01/24/19 06:59 18:59 Output Total 200 Balance -200 - Medications Medications: Current Medications Acetaminophen (Tylenol 325mg Tab) 650 mg PO Q8 PRN PRN Reason: Pain, Mild (1-3) Last Admin: 01/14/19 16:06 Dose: 650 mg Amlodipine Besylate (Norvasc) 5 mg PO DAILY [facility] Last Admin: 01/13/19 09:49 Dose: Not Given Apixaban (Eliquis) 2.5 mg PO BID [facility] Last Admin: 01/24/19 09:46 Dose: 2.5 mg Diltiazem HCl (Cardizem) 90 mg PO TID [facility] Last Admin: 01/24/19 13:41 Dose: 90 mg Famotidine (Pepcid) 20 mg PO DAILY [facility] Last Admin: 01/24/19 09:46 Dose: 20 mg Furosemide (Lasix) 20 mg IVP DAILY [facility] Last Admin: 01/24/19 09:48 Dose: 20 mg Hydrocortisone (Anusol-Hc) 25 mg RC BID PRN PRN Reason: Hemorrhoids Last Admin: 01/14/19 18:54 Dose: 25 mg Metronidazole (Flagyl) 500 mg in 100 mls @ 100 mls/hr IVPB Q8H [facility]; Protocol Last Admin: 01/24/19 13:41 Dose: 100 mls/hr Insulin Human Regular (Novolin R) 0 unit SC ACHS [facility]; Protocol Last Admin: 01/24/19 12:42 Dose: 1 units Megestrol Acetate (Megace) 400 mg PO DAILY [facility] Last Admin: 01/24/19 09:46 Dose: 400 mg Metoprolol Tartrate (Lopressor) 50 mg PO BID [facility] Last Admin: 01/24/19 09:46 Dose: 50 mg Mirtazapine (Remeron) 30 mg PO HS [facility] Last Admin: 01/23/19 22:33 Dose: 30 mg Potassium Chloride (Potassium Chloride Oral Soln) 20 meq PO DAILY [facility] Last Admin: 01/24/19 09:46 Dose: 20 meq Vancomycin HCl (Vancocin 250mg Capsule) 250 mg PO QID [facility] Stop: 04/08/19 07:00 Last Admin: 01/24/19 13:41 Dose: 250 mg Venlafaxine HCl (Effexor) 150 mg PO DAILY [facility] Last Admin: 01/24/19 09:47 Dose: 150 mg - Labs Labs: 01/21/19 11:46 01/21/19 11:46 PT 13.7 SECONDS (9.7-12.2) H 01/07/19 05:59 INR 1.3 01/07/19 05:59 APTT 25 SECONDS (21-34) 01/07/19 05:59 - Constitutional Appears: Well - Respiratory Exam Respiratory Exam: Clear to Ausculation Bilateral - Cardiovascular Exam Cardiovascular Exam: RRR - GI/Abdominal Exam GI & Abdominal Exam: Soft, Normal Bowel Sounds. absent: Guarding, Tenderness, Rebound - Extremities Exam Extremities Exam: absent: Calf Tenderness - Neurological Exam Neurological Exam: Alert, Awake Assessment and Plan (1) Depression Status: Acute (2) Anemia Status: Acute (3) Abdominal pain Assessment & Plan: better Status: Acute (4) Colitis Assessment & Plan: c diff. Diarrhea- improving. On po vanco. Status: Acute (5) Sepsis Status: Acute (6) Renal insufficiency Status: Acute (7) Rectal bleed Status: Acute (8) Atrial fibrillation Status: Acute (9) Diarrhea Assessment & Plan: consider stopping megace. Status: Acute (10) Poor appetite Status: Acute
--- NOTE | 2019-01-24 16:29 | CP.PCM.PN ---
Subjective - Date & Time of Evaluation Date of Evaluation: 01/24/19 Time of Evaluation: 16:29 - Subjective Subjective: PATIENT SEEN AND EXAMINED AT THE BEDSIDE Objective - Vital Signs/Intake and Output Vital Signs (last 24 hours): Temp Pulse Resp BP Pulse Ox 98.1 F 87 18 136/84 96 01/24/19 07:00 01/24/19 12:00 01/24/19 07:00 01/24/19 09:48 01/24/19 07:00 Intake and Output: 01/24/19 01/24/19 06:59 18:59 Output Total 200 400 Balance -200 -400 - Medications Medications: Current Medications Acetaminophen (Tylenol 325mg Tab) 650 mg PO Q8 PRN PRN Reason: Pain, Mild (1-3) Last Admin: 01/14/19 16:06 Dose: 650 mg Amlodipine Besylate (Norvasc) 5 mg PO DAILY [facility] Last Admin: 01/13/19 09:49 Dose: Not Given Apixaban (Eliquis) 2.5 mg PO BID [facility] Last Admin: 01/24/19 09:46 Dose: 2.5 mg Diltiazem HCl (Cardizem) 90 mg PO TID [facility] Last Admin: 01/24/19 13:41 Dose: 90 mg Famotidine (Pepcid) 20 mg PO DAILY [facility] Last Admin: 01/24/19 09:46 Dose: 20 mg Furosemide (Lasix) 20 mg IVP DAILY [facility] Last Admin: 01/24/19 09:48 Dose: 20 mg Hydrocortisone (Anusol-Hc) 25 mg RC BID PRN PRN Reason: Hemorrhoids Last Admin: 01/14/19 18:54 Dose: 25 mg Metronidazole (Flagyl) 500 mg in 100 mls @ 100 mls/hr IVPB Q8H [facility]; Protocol Last Admin: 01/24/19 13:41 Dose: 100 mls/hr Insulin Human Regular (Novolin R) 0 unit SC ACHS [facility]; Protocol Last Admin: 01/24/19 12:42 Dose: 1 units Megestrol Acetate (Megace) 400 mg PO DAILY [facility] Last Admin: 01/24/19 09:46 Dose: 400 mg Metoprolol Tartrate (Lopressor) 50 mg PO BID [facility] Last Admin: 01/24/19 09:46 Dose: 50 mg Mirtazapine (Remeron) 30 mg PO HS [facility] Last Admin: 01/23/19 22:33 Dose: 30 mg Potassium Chloride (Potassium Chloride Oral Soln) 20 meq PO DAILY [facility] Last Admin: 01/24/19 09:46 Dose: 20 meq Vancomycin HCl (Vancocin 250mg Capsule) 250 mg PO QID [facility] Stop: 04/08/19 07:00 Last Admin: 01/24/19 13:41 Dose: 250 mg Venlafaxine HCl (Effexor) 150 mg PO DAILY [facility] Last Admin: 01/24/19 09:47 Dose: 150 mg - Labs Labs: 01/21/19 11:46 01/21/19 11:46 PT 13.7 SECONDS (9.7-12.2) H 01/07/19 05:59 INR 1.3 01/07/19 05:59 APTT 25 SECONDS (21-34) 01/07/19 05:59 Assessment and Plan - Assessment and Plan (Free Text) Assessment: PT/OT as tolerated watch for any diarrhea continue with megace , encourage po intake continue with VANCO PO 125 mg pO TAPER FOR 5 WEEKS QID PO FOR 7 DAYS THEN BID PO FOR 14 DAYS THEN DAILY PO FOR 14 DAYS
[2019-01-24 16:39] VITALS: BP 117/77; PULSE 93; RESP 20; TEMP 97.9; O2SAT 97
--- NOTE | 2019-01-25 00:29 | PN ---
DATE: 01/24/2019 SUBJECTIVE: The patient denies any chest pain. She was taken off telemetry. PHYSICAL EXAMINATION: VITAL SIGNS: Blood pressure 139/97, heart rate 128, temperature is 98.1, respirations 18. HEENT: Pale conjunctivae. CHEST: Clear. HEART: S1 and S2, regular. EXTREMITIES: No edema. LABORATORY DATA: Today's blood sugar is 154 and 104 respectively. ASSESSMENT: 1. Rapid atrial fibrillation. 2. Clostridium difficile colitis. 3. Depression. 4. Uncontrolled diabetes mellitus. 5. Uncontrolled hypertension. RECOMMENDATIONS: Continue Cardizem at 90 mg three times daily, Eliquis 2.5 mg twice a day, IV Flagyl 500 mg every 8 hours, Lasix 20 mg intravenously daily, Lopressor 50 mg twice a day, Norvasc at 5 mg once a day, potassium chloride elixir at 20 mg daily and oral vancomycin at 250 mg four times daily. Sukhdev Dave MD
--- NOTE | 2019-01-31 16:06 | DS ---
She came into the emergency room for nausea, vomiting and abdominal pain, which began the night before she came and she did have fever 104 on admission and her past history atrial fibrillation, hypertension, high cholesterol, hypothyroid, chronic kidney disease and cancer colon. When she came in for the abdominal pain, she was admitted and she was seen by Gastroenterology and she has hemoglobin 9.8 and white count was high. Her BUN was 45/1.6, so she is depressed. She has abdominal pain and she did have colitis and she has C. difficile positive and she did have diarrhea. She has abdominal distension and abdominal tenderness and she was having renal insufficiency. She was also seen by Dr. Nolen and she was put on medications for C. diff. She was taking vancomycin and Flagyl. She was seen by Dr. Kumari for her depression. She has continued C. difficile and she seen also by the GI people Dr. Payan and Dr. Tuttle seen her and she was having diarrhea. She has very poor appetite and she continue to have the diarrhea and the abdominal distension while she was taking the medications. For a while she was seen by Dr. Nolen as well continue the medication for abdominal distension and she had membranous colitis. Finally she was less painful and diarrhea almost stopped and she was transferred to acute rehab. The patient to continue her stay and her treatment over there and she was discharged on Tylenol, amlodipine, Eliquis, Cardizem, Pepcid, Lasix, Flagyl, Novolin , Lopressor and Remeron as well as vancomycin q.i.d. p.o. and Effexor. FINAL DIAGNOSES: Membranous colitis, C. difficile infection, and persistent diarrhea and she had also depression and hypertension and diabetes. Sol Vasquez MD
== END 2019-01-24 17:35 | disposition home or self-care (01) | DRG 871 ==
LOC: C.ER 19:08 → C.5S 23:41 → C.9I 12-24 10:28 → C.5S 01-12 06:18
PROVIDERS: ADMIT Internal Medicine; ATTEND Internal Medicine
PROC: 0DBN8ZX Excision of Sigmoid Colon, Via Natural or Artificial Opening Endoscopic, Diagnostic (ICD-10-PCS; 2019-01-09)
PROC: 0DBP8ZX Excision of Rectum, Via Natural or Artificial Opening Endoscopic, Diagnostic (ICD-10-PCS; 2019-01-09)
PROC: 0DBM8ZX Excision of Descending Colon, Via Natural or Artificial Opening Endoscopic, Diagnostic (ICD-10-PCS; principal; 2019-01-09 15:35)
DX: A41.9 Sepsis, unspecified organism (principal); N17.0 Acute kidney failure with tubular necrosis; J18.9 Pneumonia, unspecified organism; A04.72 Enterocolitis due to Clostridium difficile, not specified as recurrent; E87.1 Hypo-osmolality and hyponatremia; E87.2 Acidosis; F33.9 Major depressive disorder, recurrent, unspecified; I13.0 Hypertensive heart and chronic kidney disease with heart failure and stage 1 through stage 4 chronic kidney disease, or unspecified chronic kidney disease; I48.1 Persistent atrial fibrillation; J44.0 Chronic obstructive pulmonary disease with (acute) lower respiratory infection; J98.11 Atelectasis; R18.8 Other ascites; E03.9 Hypothyroidism, unspecified; E11.22 Type 2 diabetes mellitus with diabetic chronic kidney disease; E11.65 Type 2 diabetes mellitus with hyperglycemia; E86.0 Dehydration; E87.6 Hypokalemia; F41.9 Anxiety disorder, unspecified; F42.9 Obsessive-compulsive disorder, unspecified; I25.10 Atherosclerotic heart disease of native coronary artery without angina pectoris; I48.0 Paroxysmal atrial fibrillation; I50.9 Heart failure, unspecified; K04.7 Periapical abscess without sinus; K44.9 Diaphragmatic hernia without obstruction or gangrene; N18.3 Chronic kidney disease, stage 3 (moderate); R13.10 Dysphagia, unspecified; R56.9 Unspecified convulsions; R62.7 Adult failure to thrive; Z74.01 Bed confinement status; Z96.649 Presence of unspecified artificial hip joint; D64.9 Anemia, unspecified

== ENCOUNTER 2019-02-07 18:57 | Inpatient (IN) | payer MEDICARE, MEDICAID ==
[2019-02-07 18:58] VITALS: PULSE 125; BMI 29.0
--- NOTE | 2019-02-07 19:56 | C.PDOC ---
History Of Present Illness Patient sent from rehab for increased lethargy, hypotension, and increased confusion. Unable to obtain Hxfrom patient - was recently discharged from this hospital for colitis due to treatment with antibiotics for a tooth infection, Family at bedside. Time Seen by Provider: 02/07/19 19:56 Chief Complaint (Nursing): Weakness/Neurological Deficit History Per: Other ([facility]) History/Exam Limitations: clinical condition Onset/Duration Of Symptoms: Hrs Current Symptoms Are (Timing): Worse Severity: Severe Pain Scale Rating Of: 10 Reports Recently: Seen In ED, Treated By A Physician, Hospitalized Recent travel outside of the [place]: No Additional History Per: [facility] Past Medical History Reviewed: Historical Data, Nursing Documentation, Vital Signs Vital Signs: Last Vital Signs Temp 95.7 F L 02/07/19 19:33 Pulse 86 02/07/19 19:10 Resp 19 02/07/19 19:10 BP 94/43 L 02/07/19 19:10 Pulse Ox - Medical History PMH: Atrial Fibrillation, HTN, Hypercholesterolemia, Hypothyroidism, Chronic Kidney Disease - [facility] Procedures EXCISION OF DESCENDING COLON, ENDO, DIAGN (12/22/18) EXCISION OF RECTUM, ENDO, DIAGN (12/22/18) EXCISION OF SIGMOID COLON, ENDO, DIAGN (12/22/18) GROUP PSYCHOTHERAPY (12/14/16) INDIVIDUAL PSYCHOTHERAPY, SUPPORTIVE (12/14/16) Family History: States: Unknown Family Hx - Social History Hx Alcohol Use: No Hx Substance Use: No - Immunization History Hx Tetanus Toxoid Vaccination: No Hx Influenza Vaccination: No Hx Pneumococcal Vaccination: No Review Of Systems Review Of Systems: ROS cannot be obtained secondary to pt's inabilty to answer questions. Physical Exam - Physical Exam Appears: In Acute Distress, Other (Lethargic) Skin: Warm, Dry, Pale Head: Normacephalic Eye(s): bilateral: Normal Inspection Oral Mucosa: Dry Teeth: Other (poor dentition) Neck: Trachea Midline, Supple Chest: Symmetrical, No Tenderness Cardiovascular: Rhythm Regular Respiratory: Decreased Breath Sounds, No Rales, Rhonchi (Diffuse scattered), No Wheezing Gastrointestinal/Abdominal: Soft, No Tenderness, Distention, Guarding (Mild voluntary), Other (Tympanic to percussion) Rectal: Other (Small 1.5x1cm stage one sacral decubitus, patient seemed to be incontinent of yellowish pasty stool with bright red blood per rectum) Back: No CVA Tenderness, Other (small area of skin breakdown stage 1) Extremity: Pedal Edema (Bilateral) Extremity: Bilateral: Atraumatic Pulses: Left Dorsalis Pedis: Normal, Right Dorsalis Pedis: Normal Neurological/Psych: Other (AAOx1) Gait: Unable To Assess ED Course And Treatment - Laboratory Results Result Diagrams: 02/07/19 20:26 02/07/19 20:26 ECG: Interpreted By Me, Viewed By Me ECG Rhythm: Sinus Rhythm (80), 1st Degree HB, Nonspecific Changes O2 Sat by Pulse Oximetry: 98 Pulse Ox Interpretation: Normal - Radiology CXR: Interpreted by Me, Viewed By Me CXR Interpretation: Yes: Other (lll effusion). No: Infiltrates, Fracture, Pnemothorax Progress Note: Blood work, CXR, EKG, and urinalysis ordered. Zosyn, vanco, and protonix administered. spoke with family regarding her critical condition. 8:[address] Soares-icu- will come and see the pt in the ed. 9:10 pm placed ng tube - about 200 cc of coffee ground emesis suctioned. 9;40 pm spoke with surgical supplies sterilizer will come and see thge pt in the ed. pt started to deteriorate - family wants everythig done. attempted intubation - pt vomiting coffee ground and blood in copious amounts -suctioned continuously. saturation 90-93. Anesthisia at bedside Critical Care Time - Critical Care Note Total Time (in mins): 50 Documented critical care: time excludes all time spent performing seperately billable procedures. Disposition Discussed With : Sol Vasquez Comment: accepted the pt on her service and took over the care at 9:32 PM Doctor Will See Patient In The: ED Counseled Patient/Family Regarding: Studies Performed, Diagnosis - Disposition Disposition: HOSPITALIZED Disposition Time: 19:56 Condition: CRITICAL - POA Present On Arrival: Poor Glycemic Control - Clinical Impression Clinical Impression: Sepsis, Renal failure, Dehydration, GI bleed, Elevated INR - Scribe Statement The provider has reviewed the documentation as recorded by the Scribe Juan M Sandoval All medical record entries made by the Scribe were at my direction and personally dictated by me. I have reviewed the chart and agree that the record accurately reflects my personal performance of the history, physical exam, medical decision making, and the department course for this patient. I have also personally directed, reviewed, and agree with the discharge instructions and di sposition. Decision To Admit - Pt Status Changed To: Hospital Disposition Of: Inpatient - Admit Certification Admit to Inpatient:: After my assessment, the patient will require hospit alization for at least two midnights. This is because of the severity of symptoms shown, intensity of services needed, and/or the medical risk in this patient being treated as an outpatient. - InPatient: Physician Admission Certification: I certify that this patient requires 2 or more midnights of care for the following reason:: After my assessment, the hao ent will require hospitalization for at least two midnights. This is because of the severity of symptoms shown, intensity of services needed, and/or the medical risk in this patient being treated as an outpatient. - . Bed Request Type: ICU Admitting Physician: Sol Vasquez Patient Diagnosis: Sepsis, Renal failure, Dehydration, GI bleed, Elevated INR
--- NOTE | 2019-02-07 19:56 | C.PDOC ---
Time Seen by Provider: 02/07/19 19:56 Chief Complaint (Nursing): Weakness/Neurological Deficit Past Medical History Vital Signs: Last Vital Signs Temp 95.7 F L 02/07/19 19:33 Pulse 86 02/07/19 19:10 Resp 19 02/07/19 19:10 BP 94/43 L 02/07/19 19:10 Pulse Ox - Medical History PMH: Atrial Fibrillation, HTN, Hypercholesterolemia, Hypothyroidism, Chronic Kidney Disease - [facility] Procedures EXCISION OF DESCENDING COLON, ENDO, DIAGN (12/22/18) EXCISION OF RECTUM, ENDO, DIAGN (12/22/18) EXCISION OF SIGMOID COLON, ENDO, DIAGN (12/22/18) GROUP PSYCHOTHERAPY (12/14/16) INDIVIDUAL PSYCHOTHERAPY, SUPPORTIVE (12/14/16) Family History: States: Unknown Family Hx - Social History Hx Alcohol Use: No Hx Substance Use: No - Immunization History Hx Tetanus Toxoid Vaccination: No Hx Influenza Vaccination: No Hx Pneumococcal Vaccination: No Disposition Counseled Patient/Family Regarding: Studies Performed, Diagnosis - Disposition Disposition Time: 19:56
[2019-02-07] MEDS ORDERED: Vancomycin 1 GM 1 GM/250 ML BAG IVPB STA (20:09)
[2019-02-07] MEDS ORDERED: Piperacillin/Tazobact 3.375 gm 100 ML IVPB STA (20:09)
[2019-02-07 20:16] LABS: VENOUS BLOOD GAS BASE EXCESS -11.8 mmol/L (0.0-2.0); VENOUS BLOOD GAS PCO2 37 mmHg (40-60); VENOUS BLOOD GAS PO2 37 mm/Hg (30-55); VENOUS BLOOD PH 7.22 (7.32-7.43)
[2019-02-07 20:32] LABS: BASO % 0.1 % (0.0-2.0); HEMOGLOBIN 8.2 g/dL (11.0-16.0); LYMPH # 1.1 K/uL (1.0-4.3); LYMPH % 6.8 % (20.0-40.0); MEAN CELL VOLUME 82.8 fL (81.0-99.0); MEAN CORPUSCULAR HEMOGLOBIN 24.9 pg (27.0-31.0); MEAN PLATELET VOLUME 9.1 fL (7.2-11.7); MONO # 0.8 K/uL (0.0-0.8); MONO % 5.2 % (0.0-10.0); NEUT # 13.7 K/uL (1.8-7.0); NEUT % 87.9 % (50.0-75.0); NRBC % 0.1 % (0.0-2.0); PLATELET COUNT 324 K/uL (130-400); RBC 3.32 Mil/uL (3.80-5.20); RED CELL DISTRIBUTION WIDTH 20.8 % (11.5-14.5); WHITE BLOOD COUNT 15.6 K/uL (4.8-10.8)
[2019-02-07 20:47] LABS: INR 6.7
[2019-02-07 20:52] LABS: ALB/GLOB RATIO 0.8 (1.0-2.1); ALBUMIN 2.8 g/dL (3.5-5.0); CALCIUM 7.2 mg/dl (8.6-10.4)
[2019-02-07] MEDS ORDERED: Sodium Chloride 0.9% 1,000 ML ONE (20:56)
[2019-02-07] MEDS ORDERED: Vancomycin 1 GM 1 GM/250 ML BAG IVPB ONE (20:56)
[2019-02-07] MEDS ORDERED: Piperacillin/Tazobact 3.375 gm 100 ML IVPB ONE (20:56)
[2019-02-07] MEDS ORDERED: Sodium Chloride 0.9% 1,000 ML IV ONE ×2 (20:59→23:13)
[2019-02-07 21:08] LABS: SQUAMOUS EPITHIAL < 1 /hpf (0-5); URINE AMORPHOUS SEDIMENT FEW /ul (<OCC); URINE BACTERIA RARE (<OCC); URINE BILIRUBIN NEGATIVE (NEGATIVE); URINE BLOOD 1+ (NEGATIVE); URINE CLARITY Hazy (Clear); URINE COLOR Amber (YELLOW); URINE GLUCOSE (UA) NORMAL (Normal); URINE LEUKOCYTE ESTERASE NEG Leu/uL (Negative); URINE PROTEIN 1+ mg/dL (NEGATIVE); URINE UROBILINOGEN NORMAL mg/dL (0.2-1.0)
[2019-02-07] MEDS ORDERED: Midazolam 2 MG/2 ML VIAL ONE ×2 (22:09→22:11)
[2019-02-07] MEDS ORDERED: Phytonadione 10 mg/ml Inj (Adult) ONE (22:11)
[2019-02-07] MEDS ORDERED: Phytonadione 10 mg/ml Inj (Adult) IV STA (22:37)
[2019-02-07] MEDS ORDERED: Desmopressin 20 MCG in Sodium Chloride 0.9% 50 ML IV ONE (22:37)
--- NOTE | 2019-02-07 22:37 | CP.CCUPN ---
CCU Subjective - Physician Review Subjective (Free Text): 02/08/19 06:01 The Patient was seen and examined at the bedside, Medical records reviewed, and management issues were discussed and formulated with the house staff. I have reviewed all the relevant clinical, laboratory, hemodynamic, radiographic data and medications Events reviewed Patient is 73 years old female with past medical history hypertension, hypercholesterolemia, hypothyroid, CKD stage 3, DM, Anemia, CHF, dementia and atrial fibrillation on anticoagulation patient with recent hospitalization for colitis and was transferred to [facility] Upon my arrival to the emergency room patient is hemodynamically stable hypertension systolic blood pressure in 70s, lethargic, minimally responsive and hypoxemic Patient was urgently intubated by anesthesia, and under complete sterile technique right femoral central line was placed Patient received etomidate during intubation Aggressive fluid resuscitation started In the ER NG tube was placed and feculent material aspirated Blood cultures and urine culture was sent and patient is started on IV Va ncomycin, Zosyn and Flagyl Patient remained hypotensive and was started on levofed drip Ordered 2 units of packed red blood cells and 2 units of fresh frozen plasma Patient remains hypotensive titrating up the Levophed to max Discussed with the family at the bedside in details diagnosis, critical condition, treatment plans and alternatives Holding off CAT scan of abdomen and pelvis for now due to hemodynamic instability and very unlikely that findings will change in the management in view of her being very high risk for surgery 02/08/19 06:59 Patient remained hemodynamically unstable throughout the night, were unable to send her for CT scan, initially on 1 vasopressor with Levophed currently she is on vasopressin/Levophed and dopamine was added Lab was just sent status post 2 units packed red blood cell and 2 units fresh frozen plasma ABG with severe metabolic acidosis, she was given 2 Amp of sodium bicarb and started on bicarb drip. CCU Objective - Vital Signs / Intake & Output Vital Signs (Last 4 hours): Vital Signs Temp Pulse Resp BP Pulse Ox 02/07/19 22:14 58 L 12 75/21 L 95 02/07/19 22:10 62 13 70/19 L 90 L 02/07/19 22:07 62 15 78/30 L 90 L 02/07/19 21:55 73 15 78/35 L 91 L 02/07/19 21:40 67 15 77/42 L 80 L 02/07/19 21:22 72 19 79/44 L 81 L 02/07/19 21:12 76 27 H 87/36 L 82 L 02/07/19 20:40 80 22 89/32 L 93 L 02/07/19 19:58 89 22 94/42 L 94 L 02/07/19 19:33 95.7 F L 02/07/19 19:17 76 94/43 L 02/07/19 19:10 97.9 F 86 19 94/43 L Intake and Output (Last 8hrs): Intake & Output 02/07/19 02/07/19 02/07/19 06:59 14:59 22:59 Weight 145 lb - Physical Exam Physical Exam Limitations: Positive for: Altered Mental Status, Clinical Condition, Uncooperative Head: Positive for: Atraumatic, Normocephalic. Negative for: Contusion, Swelling Pupils: Positive for: PERRL. Negative for: Sluggish, Non-Reactive, Pinpoint Extroacular Muscles: Positive for: EOMI Conjunctiva: Positive for: Injected, Icteric Mouth: Positive for: Moist Mucous Membranes, Dry, Drooling Nose (Internal): Negative for: No Active Bleeding Neck: Positive for: Normal Range of Motion, Trachea Midline Respiratory/Chest: Positive for: Respiratory Distress, Accessory Muscle Use, Decreased Breath Sounds, Rales, Rhonchi, Tachypneic. Negative for: Clear to Auscultation, Good Air Exchange Cardiovascular: Positive for: Regular Rate and Rhythm, Normal S1, S2, Peripheal Pulses Present Upper Extremity: Positive for: Edema, Normal ROM, Capillary Refill < 2s Lower Extremity: Positive for: Edema Psychiatric: Negative for: Alert, Oriented x 3, Normal Insight - Medications Active Medications: Active Medications Generic Name Dose Route Start Last Admin Trade Name Freq PRN Reason Stop Dose Admin Norepinephrine Bitartrate 4 mg 254 mls @ 15.24 mls/hr 02/07/19 21:27 / Dextrose IV .[id number] PRN TITRATE PER MD ORDER Protocol 4 MCG/MIN - Patient Studies Lab Studies: Lab Studies 02/07/19 02/07/19 02/07/19 Range/Units 20:53 20:53 20:40 WBC (4.8-10.8) K/uL RBC (3.80-5.20) Mil/uL Hgb (11.0-16.0) g/dL Hct (34.0-47.0) % MCV (81.0-99.0) fL MCH (27.0-31.0) pg MCHC (33.0-37.0) g/dL RDW (11.5-14.5) % Plt Count (130-400) K/uL MPV (7.2-11.7) fL Neut % (Auto) (50.0-75.0) % Lymph % (Auto) (20.0-40.0) % Bay % (Auto) (0.0-10.0) % Eos % (Auto) (0.0-4.0) % Baso % (Auto) (0.0-2.0) % Neut # (Auto) (1.8-7.0) K/uL Lymph # (Auto) (1.0-4.3) K/uL Bay # (Auto) (0.0-0.8) K/uL Eos # (Auto) (0.0-0.7) K/uL Baso # (Auto) (0.0-0.2) K/uL PT (9.7-12.2) SECONDS INR APTT (21-34) SECONDS pO2 (30-55) mm/Hg VBG pH (7.32-7.43) VBG pCO2 (40-60) mmHg VBG HCO3 mmol/L VBG Total CO2 (22-28) mmol/L VBG O2 Sat (Calc) (40-65) % VBG Base Excess (0.0-2.0) mmol/L VBG Potassium (3.6-5.2) mmol/L Sodium (132-148) mmol/l Chloride (98-107) mmol/L Glucose (65-105) mg/dl Lactate (0.7-2.1) mmol/L Potassium (3.6-5.2) mmol/L Carbon Dioxide (22-30) mmol/L Anion Gap (10-20) BUN (7-17) mg/dL Creatinine (0.7-1.2) mg/dL Est GFR ( Amer) Est GFR (Non-Af Amer) POC Glucose (mg/dL) (65-110) mg/dL Random Glucose (65-105) mg/dL Calcium (8.6-10.4) mg/dl Phosphorus (2.5-4.5) mg/dL Magnesium (1.6-2.3) mg/dL Total Bilirubin (0.2-1.3) mg/dL AST (14-36) U/L ALT (9-52) U/L Alkaline Phosphatase (38-126) U/L Total Protein (6.3-8.3) g/dL Albumin (3.5-5.0) g/dL Globulin (2.2-3.9) gm/dL Albumin/Globulin Ratio (1.0-2.1) Venous Blood Potassium (3.6-5.2) mmol/L Urine Color [place] (YELLOW) Urine Clarity Hazy (Clear) Urine pH 5.0 (5.0-8.0) Ur Specific [place] 1.015 (1.003-1.030) Urine Protein 1+ H (NEGATIVE) mg/dL Urine Glucose (UA) Normal (Normal) mg/dL Urine Ketones Negative (NEGATIVE) mg/dL Urine Blood 1+ H (NEGATIVE) Urine Nitrate Negative (NEGATIVE) Urine Bilirubin Negative (NEGATIVE) Urine Urobilinogen Normal (0.2-1.0) mg/dL Ur Leukocyte Esterase Neg (Negative) Leonie/uL Urine WBC (Auto) < 1 (0-5) /hpf Urine RBC (Auto) 10 H (0-3) /hpf Ur Squamous Epith Cells < 1 (0-5) /hpf Amorphous Sediment Few H (<OCC) /ul Urine Bacteria Rare (<OCC) Hyaline Casts 3-5 H (0-2) /lpf Stool Occult Blood Positive H (NEGATIVE) Digoxin 0.6 L (0.8-2.0) ng/mL 02/07/19 02/07/19 02/07/19 Range/Units 20:26 20:26 20:26 WBC 15.6 H (4.8-10.8) K/uL RBC 3.32 L (3.80-5.20) Mil/uL Hgb 8.2 L (11.0-16.0) g/dL Hct 27.5 L (34.0-47.0) % MCV 82.8 (81.0-99.0) fL MCH 24.9 L (27.0-31.0) pg MCHC 30.0 L (33.0-37.0) g/dL RDW 20.8 H (11.5-14.5) % Plt Count 324 (130-400) K/uL MPV 9.1 (7.2-11.7) fL Neut % (Auto) 87.9 H (50.0-75.0) % Lymph % (Auto) 6.8 L (20.0-40.0) % Bay % (Auto) 5.2 (0.0-10.0) % Eos % (Auto) 0.0 (0.0-4.0) % Baso % (Auto) 0.1 (0.0-2.0) % Neut # (Auto) 13.7 H (1.8-7.0) K/uL Lymph # (Auto) 1.1 (1.0-4.3) K/uL Bay # (Auto) 0.8 (0.0-0.8) K/uL Eos # (Auto) 0.0 (0.0-0.7) K/uL Baso # (Auto) 0.0 (0.0-0.2) K/uL PT 74.0 H (9.7-12.2) SECONDS INR 6.7 H* APTT 34 (21-34) SECONDS pO2 (30-55) mm/Hg VBG pH (7.32-7.43) VBG pCO2 (40-60) mmHg VBG HCO3 mmol/L VBG Total CO2 (22-28) mmol/L VBG O2 Sat (Calc) (40-65) % VBG Base Excess (0.0-2.0) mmol/L VBG Potassium (3.6-5.2) mmol/L Sodium 135 (132-148) mmol/l Chloride 101 (98-107) mmol/L Glucose (65-105) mg/dl Lactate (0.7-2.1) mmol/L Potassium 5.5 H (3.6-5.2) mmol/L Carbon Dioxide 17 L (22-30) mmol/L Anion Gap 23 H (10-20) BUN 64 H (7-17) mg/dL Creatinine 4.4 H (0.7-1.2) mg/dL Est GFR ( Amer) 12 Est GFR (Non-Af Amer) 10 POC Glucose (mg/dL) (65-110) mg/dL Random Glucose 199 H (65-105) mg/dL Calcium 7.2 L (8.6-10.4) mg/dl Phosphorus 9.3 H (2.5-4.5) mg/dL Magnesium 2.6 H (1.6-2.3) mg/dL Total Bilirubin 2.4 H (0.2-1.3) mg/dL AST 3117 H (14-36) U/L ALT 596 H D (9-52) U/L Alkaline Phosphatase 273 H D (38-126) U/L Total Protein 6.2 L (6.3-8.3) g/dL Albumin 2.8 L (3.5-5.0) g/dL Globulin 3.4 (2.2-3.9) gm/dL Albumin/Globulin Ratio 0.8 L (1.0-2.1) Venous Blood Potassium (3.6-5.2) mmol/L Urine Color (YELLOW) Urine Clarity (Clear) Urine pH (5.0-8.0) Ur Specific [place] (1.003-1.030) Urine Protein (NEGATIVE) mg/dL Urine Glucose (UA) (Normal) mg/dL Urine Ketones (NEGATIVE) mg/dL Urine Blood (NEGATIVE) Urine Nitrate (NEGATIVE) Urine Bilirubin (NEGATIVE) Urine Urobilinogen (0.2-1.0) mg/dL Ur Leukocyte Esterase (Negative) Leonie/uL Urine WBC (Auto) (0-5) /hpf Urine RBC (Auto) (0-3) /hpf Ur Squamous Epith Cells (0-5) /hpf Amorphous Sediment (<OCC) /ul Urine Bacteria (<OCC) Hyaline Casts (0-2) /lpf Stool Occult Blood (NEGATIVE) Digoxin (0.8-2.0) ng/mL 02/07/19 02/07/19 Range/Units 20:12 19:19 WBC (4.8-10.8) K/uL RBC (3.80-5.20) Mil/uL Hgb (11.0-16.0) g/dL Hct (34.0-47.0) % MCV (81.0-99.0) fL MCH (27.0-31.0) pg MCHC (33.0-37.0) g/dL RDW (11.5-14.5) % Plt Count (130-400) K/uL MPV (7.2-11.7) fL Neut % (Auto) (50.0-75.0) % Lymph % (Auto) (20.0-40.0) % Bay % (Auto) (0.0-10.0) % Eos % (Auto) (0.0-4.0) % Baso % (Auto) (0.0-2.0) % Neut # (Auto) (1.8-7.0) K/uL Lymph # (Auto) (1.0-4.3) K/uL Bay # (Auto) (0.0-0.8) K/uL Eos # (Auto) (0.0-0.7) K/uL Baso # (Auto) (0.0-0.2) K/uL PT (9.7-12.2) SECONDS INR APTT (21-34) SECONDS pO2 37 (30-55) mm/Hg VBG pH 7.22 L (7.32-7.43) VBG pCO2 37 L (40-60) mmHg VBG HCO3 14.6 mmol/L VBG Total CO2 16.2 L (22-28) mmol/L VBG O2 Sat (Calc) 68.9 H (40-65) % VBG Base Excess -11.8 L (0.0-2.0) mmol/L VBG Potassium 5.4 H (3.6-5.2) mmol/L Sodium 135.0 (132-148) mmol/l Chloride 102.0 (98-107) mmol/L Glucose 191 H (65-105) mg/dl Lactate 3.2 H (0.7-2.1) mmol/L Potassium (3.6-5.2) mmol/L Carbon Dioxide (22-30) mmol/L Anion Gap (10-20) BUN (7-17) mg/dL Creatinine (0.7-1.2) mg/dL Est GFR ( Amer) Est GFR (Non-Af Amer) POC Glucose (mg/dL) 216 H (65-110) mg/dL Random Glucose (65-105) mg/dL Calcium (8.6-10.4) mg/dl Phosphorus (2.5-4.5) mg/dL Magnesium (1.6-2.3) mg/dL Total Bilirubin (0.2-1.3) mg/dL AST (14-36) U/L ALT (9-52) U/L Alkaline Phosphatase (38-126) U/L Total Protein (6.3-8.3) g/dL Albumin (3.5-5.0) g/dL Globulin (2.2-3.9) gm/dL Albumin/Globulin Ratio (1.0-2.1) Venous Blood Potassium 5.4 H (3.6-5.2) mmol/L Urine Color (YELLOW) Urine Clarity (Clear) Urine pH (5.0-8.0) Ur Specific [place] (1.003-1.030) Urine Protein (NEGATIVE) mg/dL Urine Glucose (UA) (Normal) mg/dL Urine Ketones (NEGATIVE) mg/dL Urine Blood (NEGATIVE) Urine Nitrate (NEGATIVE) Urine Bilirubin (NEGATIVE) Urine Urobilinogen (0.2-1.0) mg/dL Ur Leukocyte Esterase (Negative) Leonie/uL Urine WBC (Auto) (0-5) /hpf Urine RBC (Auto) (0-3) /hpf Ur Squamous Epith Cells (0-5) /hpf Amorphous Sediment (<OCC) /ul Urine Bacteria (<OCC) Hyaline Casts (0-2) /lpf Stool Occult Blood (NEGATIVE) Digoxin (0.8-2.0) ng/mL Laboratory Results - last 24 hr 02/07/19 02/07/19 02/07/19 19:19 20:12 20:26 WBC 15.6 H RBC 3.32 L Hgb 8.2 L Hct 27.5 L MCV 82.8 MCH 24.9 L MCHC 30.0 L RDW 20.8 H Plt Count 324 MPV 9.1 Neut % (Auto) 87.9 H Lymph % (Auto) 6.8 L Bay % (Auto) 5.2 Eos % (Auto) 0.0 Baso % (Auto) 0.1 Neut # (Auto) 13.7 H Lymph # (Auto) 1.1 Bay # (Auto) 0.8 Eos # (Auto) 0.0 Baso # (Auto) 0.0 PT INR APTT pO2 37 VBG pH 7.22 L VBG pCO2 37 L VBG HCO3 14.6 VBG Total CO2 16.2 L VBG O2 Sat (Calc) 68.9 H VBG Base Excess -11.8 L VBG Potassium 5.4 H Sodium 135.0 Chloride 102.0 Glucose 191 H Lactate 3.2 H Potassium Carbon Dioxide Anion Gap BUN Creatinine Est GFR ( Amer) Est GFR (Non-Af Amer) POC Glucose (mg/dL) 216 H Random Glucose Calcium Phosphorus Magnesium Total Bilirubin AST ALT Alkaline Phosphatase Total Protein Albumin Globulin Albumin/Globulin Ratio Venous Blood Potassium 5.4 H Urine Color Urine Clarity Urine pH Ur Specific [place] Urine Protein Urine Glucose (UA) Urine Ketones Urine Blood Urine Nitrate Urine Bilirubin Urine Urobilinogen Ur Leukocyte Esterase Urine WBC (Auto) Urine RBC (Auto) Ur Squamous Epith Cells Amorphous Sediment Urine Bacteria Hyaline Casts Stool Occult Blood Digoxin 02/07/19 02/07/19 02/07/19 20:26 20:26 20:40 WBC RBC Hgb Hct MCV MCH MCHC RDW Plt Count MPV Neut % (Auto) Lymph % (Auto) Bay % (Auto) Eos % (Auto) Baso % (Auto) Neut # (Auto) Lymph # (Auto) Bay # (Auto) Eos # (Auto) Baso # (Auto) PT 74.0 H INR 6.7 H* APTT 34 pO2 VBG pH VBG pCO2 VBG HCO3 VBG Total CO2 VBG O2 Sat (Calc) VBG Base Excess VBG Potassium Sodium 135 Chloride 101 Glucose Lactate Potassium 5.5 H Carbon Dioxide 17 L Anion Gap 23 H BUN 64 H Creatinine 4.4 H Est GFR ( Amer) 12 Est GFR (Non-Af Amer) 10 POC Glucose (mg/dL) Random Glucose 199 H Calcium 7.2 L Phosphorus 9.3 H Magnesium 2.6 H Total Bilirubin 2.4 H AST 3117 H ALT 596 H D Alkaline Phosphatase 273 H D Total Protein 6.2 L Albumin 2.8 L Globulin 3.4 Albumin/Globulin Ratio 0.8 L Venous Blood Potassium Urine Color Urine Clarity Urine pH Ur Specific [place] Urine Protein Urine Glucose (UA) Urine Ketones Urine Blood Urine Nitrate Urine Bilirubin Urine Urobilinogen Ur Leukocyte Esterase Urine WBC (Auto) Urine RBC (Auto) Ur Squamous Epith Cells Amorphous Sediment Urine Bacteria Hyaline Casts Stool Occult Blood Positive H Digoxin 02/07/19 02/07/19 20:53 20:53 WBC RBC Hgb Hct MCV MCH MCHC RDW Plt Count MPV Neut % (Auto) Lymph % (Auto) Bay % (Auto) Eos % (Auto) Baso % (Auto) Neut # (Auto) Lymph # (Auto) Bay # (Auto) Eos # (Auto) Baso # (Auto) PT INR APTT pO2 VBG pH VBG pCO2 VBG HCO3 VBG Total CO2 VBG O2 Sat (Calc) VBG Base Excess VBG Potassium Sodium Chloride Glucose Lactate Potassium Carbon Dioxide Anion Gap BUN Creatinine Est GFR ( Amer) Est GFR (Non-Af Amer) POC Glucose (mg/dL) Random Glucose Calcium Phosphorus Magnesium Total Bilirubin AST ALT Alkaline Phosphatase Total Protein Albumin Globulin Albumin/Globulin Ratio Venous Blood Potassium Urine Color [place]acia Urine Clarity Hazy Urine pH 5.0 Ur Specific [place] 1.015 Urine Protein 1+ H Urine Glucose (UA) Normal Urine Ketones Negative Urine Blood 1+ H Urine Nitrate Negative Urine Bilirubin Negative Urine Urobilinogen Normal Ur Leukocyte Esterase Neg Urine WBC (Auto) < 1 Urine RBC (Auto) 10 H Ur Squamous Epith Cells < 1 Amorphous Sediment Few H Urine Bacteria Rare Hyaline Casts 3-5 H Stool Occult Blood Digoxin 0.6 L EKG/Cardiology Studies: Cardiology / EKG Studies 02/07/19 19:57 ELECTROCARDIOGRAM Stat Comment: Mode Of Transportation: Reason For Exam: Sepsis Patient Review of Systems - Review of Systems Systems not reviewed;Unavailable: Intubated Critical Care Progress Note - Ventilator Checklist Head of Bed 30 Degrees: No Daily Sedation Vacation: No Daily Assessment of Readiness to Wean: No Daily Spontaneous Breathing Trial: No PUD Prophalyxis: No DVT Prophylaxis: No Oral Care with Chlorhexidine Gluconate {CHG}: No - Extremities/Vascular Does the Patient have a Central Venous Catheter?: Yes Does the Patient need a Central Venous Catheter?: Yes Does the Patient have a Tesfaye Catheter?: Yes Does the Patient need a Tesfaye Catheter?: Yes Assessment/Plan (1) Septic shock Current Visit: Yes Status: Acute Priority: High (2) Acute liver failure Current Visit: Yes Status: Acute Priority: High (3) Acute kidney injury Current Visit: Yes Status: Acute Priority: High (4) Septic shock Current Visit: Yes Status: Acute Priority: High (5) Coagulopathy Current Visit: Yes Status: Acute Priority: High (6) Elevated INR Current Visit: Yes Status: Acute Priority: High (7) GI bleed Current Visit: Yes Status: Acute Priority: High - Assessment and Plan (Free Text) Assessment: Patient is 73 years old female with multiple comorbid conditions including hypertension, hypercholesterolemia, diabetes, chronic kidney disease, CHF and atrial fibrillation Recent hospitalization for C. difficile colitis Return back with hypoxemia, hypotension hemodynamic instability secondary to septic shock and multiorgan system failure Urgently intubated and central line placed Admit the patient to the intensive care unit for hemodynamic monitoring Full vent support, serial ABG And consult done in the emergency room IV vancomycin, Zosyn and Flagyl Aggressive fluid resuscitation Bicarb drip Vasopressor support To maintain map 65-75 NG tube to low intermittent suction Monitor urine output Transfuse 2 units of packed red blood cells and 2 units of fresh frozen plasma DDAVP Surgical consult appreciated Prognosis guarded, discussed with the patient and family at the bedside the critical condition of the patient patient remain full code at this time Total critical care time 42 minutes
--- NOTE | 2019-02-07 22:42 | PCM.PROC ---
Procedures Attestation:: I certify that I have explained the specified Operation(s) or Procedure(s), risks, benefits and reasonable alternatives to the Patient and/or other person responsible. The opportunity was given to ask questions and all questions answered - Central Line Placement Right Femoral Triple Lumen Catheter Aseptic technique was employed throughout the procedure: Hand Hygiene done prior to procedure, Full sterile barriers (mask, hair cover, sterile gown, sterile gloves), Full body sterile drape, Chloraprep Antiseptic: 2 minute prep for Femoral CVP Time Out Performed: Yes Pt. Placed on Pulse Ox Monitor: Yes Central Line Prep: Chlorhexidine-Alcohol Combination Local Anesthesia Used: Lidocaine 1% Ultrasound Used for Placement: Yes Central Line Lumen Inserted: triple Central Line Length: 20 cm Post Procedure: Sutured in Place, Good Blood Return, All Ports Aspirated, F lushed, Capped, Sterile Dressing Applied Secured by: Suture Post procedure dressing: Gauze Post Procedure X-Ray: No Patient Tolerated Procedure: No Complications Immediate Complications: None
--- NOTE | 2019-02-07 22:58 | CP.PCM.CON ---
History of Present Illness - History of Present Illness History of Present Illness: Surgery: Dr. Anton Reason for consult: septic shock with abdominal distention, GI bleed, and recent history of C. Diff colitis HPI: Patient is a 73 y/o female with pmhx signification for C. Diff colitis about 1 month ago presents from acute rehab via EMS for AMS and hypotension. History obtained for ER physician and family. Per family, patient has had 2-3 days of abdominal distention otherwise asymptomatic. The denied f/c/n/v/ diarrhea and patient seemed to be in her usual state of health until this evening when she became confused and obtunded. Patient was transported to ED and found to be in septic shock, etiology uncertain. NGT was placed by ER physician for abdominal distention and 200cc of coffee ground gastric contents was aspirated. Patient clinical condition deteriorated rapidly requiring intubation and cental line placement for vasopressors. PMH: C diff colitis, CKD stage 3, HTN, DM, Anemia, Afib, CVA, hypothyroidism, L adrenal nodule, hx Digoxin toxicity, CHF, urinary retention, dementia PSH: R hip surgery and open appendectomy around age 5 All: NKDA SH: Denies ETOH, tobacco, or illicit drug use PMD: [facility] Review of Systems - Review of Systems Systems not reviewed;Unavailable: Acuity of Condition, Unstable Vital Signs, Altered Mental Status, Intubated Past Patient History - Infectious Disease Hx of Infectious Diseases: None - Past Medical History & Family History Past Medical History?: Yes - Past Social History Smoking Status: Never Smoked - CARDIAC Hx Atrial Fibrillation: Yes Hx Hypercholesterolemia: Yes Hx Hypertension: Yes - PULMONARY Hx Respiratory Disorders: No - NEUROLOGICAL HX Cerebrovascular Accident: Yes - HEENT Hx HEENT Problems: No - RENAL Hx Chronic Kidney Disease: Yes - ENDOCRINE/METABOLIC Hx Hypothyroidism: Yes - HEMATOLOGICAL/ONCOLOGICAL Hx Blood Disorders: No - INTEGUMENTARY Hx Dermatological Problems: No - MUSCULOSKELETAL/RHEUMATOLOGICAL Hx Falls: Yes - GASTROINTESTINAL Hx Gastrointestinal Disorders: No - GENITOURINARY/GYNECOLOGICAL Hx Genitourinary Disorders: No - PSYCHIATRIC Hx Substance Use: No - SURGICAL HISTORY Hx Surgeries: No Other/Comment: HIP REPLACEMENT - DONT KNOW WHICH HIP - ANESTHESIA Hx Anesthesia: Yes Hx Anesthesia Reactions: No Meds Allergies/Adverse Reactions: Allergies Allergy/AdvReac Type Severity Reaction Status Date / Time No Known Allergies Allergy Verified 11/18/18 12:35 - Medications Medications: Current Medications Norepinephrine Bitartrate 4 mg (/ Dextrose) 254 mls @ 15.24 mls/hr IV .[id number] PRN; Protocol PRN Reason: TITRATE PER MD ORDER Desmopressin Acetate 20 mcg/ (Sodium Chloride) 55 mls @ 100 mls/hr IV ONCE ONE Stop: 02/07/19 23:06 Physical Exam - Constitutional Appears: Toxic - Head Exam Head Exam: ATRAUMATIC, NORMOCEPHALIC - Eye Exam Pupil Exam: Fixed - ENT Exam ENT Exam: Mucous Membranes Dry Additional comments: blood in oropharynx - Respiratory Exam Additional comments: intubated on mechanical vent 15/400/100/5 - Cardiovascular Exam Cardiovascular Exam: REGULAR RHYTHM - GI/Abdominal Exam GI & Abdominal Exam: Distended, Soft. absent: Guarding, Rebound, Tenderness Additional comments: off midline vertical scar - Rectal Exam Additional comments: heme + - Extremities Exam Extremities exam: Positive for: normal inspection. Negative for: calf tenderness Additional comments: right groin TLC placed - Neurological Exam Neurological exam: Altered - Skin Skin Exam: Dry, Warm Results - Vital Signs Recent Vital Signs: Last Vital Signs Temp 95.7 F L 02/07/19 19:33 Pulse 58 L 02/07/19 22:14 Resp 12 02/07/19 22:14 BP 75/21 L 02/07/19 22:14 Pulse Ox 95 02/07/19 22:14 - Labs Result Diagrams: 02/07/19 20:26 02/07/19 20:26 Labs: Laboratory Results - last 24 hr 02/07/19 02/07/19 02/07/19 19:19 20:12 20:26 WBC 15.6 H RBC 3.32 L Hgb 8.2 L Hct 27.5 L MCV 82.8 MCH 24.9 L MCHC 30.0 L RDW 20.8 H Plt Count 324 MPV 9.1 Neut % (Auto) 87.9 H Lymph % (Auto) 6.8 L [place] % (Auto) 5.2 Eos % (Auto) 0.0 Baso % (Auto) 0.1 Neut # (Auto) 13.7 H Lymph # (Auto) 1.1 [place] # (Auto) 0.8 Eos # (Auto) 0.0 Baso # (Auto) 0.0 PT INR APTT pO2 37 VBG pH 7.22 L VBG pCO2 37 L VBG HCO3 14.6 VBG Total CO2 16.2 L VBG O2 Sat (Calc) 68.9 H VBG Base Excess -11.8 L VBG Potassium 5.4 H Sodium 135.0 Chloride 102.0 Glucose 191 H Lactate 3.2 H Potassium Carbon Dioxide Anion Gap BUN Creatinine Est GFR ( Amer) Est GFR (Non-Af Amer) POC Glucose (mg/dL) 216 H Random Glucose Calcium Phosphorus Magnesium Total Bilirubin AST ALT Alkaline Phosphatase Total Protein Albumin Globulin Albumin/Globulin Ratio Venous Blood Potassium 5.4 H Urine Color Urine Clarity Urine pH Ur Specific [place] Urine Protein Urine Glucose (UA) Urine Ketones Urine Blood Urine Nitrate Urine Bilirubin Urine Urobilinogen Ur Leukocyte Esterase Urine WBC (Auto) Urine RBC (Auto) Ur Squamous Epith Cells Amorphous Sediment Urine Bacteria Hyaline Casts Stool Occult Blood Digoxin Blood Type 02/07/19 02/07/19 02/07/19 20:26 20:26 20:40 WBC RBC Hgb Hct MCV MCH MCHC RDW Plt Count MPV Neut % (Auto) Lymph % (Auto) [place] % (Auto) Eos % (Auto) Baso % (Auto) Neut # (Auto) Lymph # (Auto) [place] # (Auto) Eos # (Auto) Baso # (Auto) PT 74.0 H INR 6.7 H* APTT 34 pO2 VBG pH VBG pCO2 VBG HCO3 VBG Total CO2 VBG O2 Sat (Calc) VBG Base Excess VBG Potassium Sodium 135 Chloride 101 Glucose Lactate Potassium 5.5 H Carbon Dioxide 17 L Anion Gap 23 H BUN 64 H Creatinine 4.4 H Est GFR ( Amer) 12 Est GFR (Non-Af Amer) 10 POC Glucose (mg/dL) Random Glucose 199 H Calcium 7.2 L Phosphorus 9.3 H Magnesium 2.6 H Total Bilirubin 2.4 H AST 3117 H ALT 596 H D Alkaline Phosphatase 273 H D Total Protein 6.2 L Albumin 2.8 L Globulin 3.4 Albumin/Globulin Ratio 0.8 L Venous Blood Potassium Urine Color Urine Clarity Urine pH Ur Specific [place] Urine Protein Urine Glucose (UA) Urine Ketones Urine Blood Urine Nitrate Urine Bilirubin Urine Urobilinogen Ur Leukocyte Esterase Urine WBC (Auto) Urine RBC (Auto) Ur Squamous Epith Cells Amorphous Sediment Urine Bacteria Hyaline Casts Stool Occult Blood Positive H Digoxin Blood Type 02/07/19 02/07/19 02/07/19 20:53 20:53 22:07 WBC RBC Hgb Hct MCV MCH MCHC RDW Plt Count MPV Neut % (Auto) Lymph % (Auto) [place] % (Auto) Eos % (Auto) Baso % (Auto) Neut # (Auto) Lymph # (Auto) [place] # (Auto) Eos # (Auto) Baso # (Auto) PT INR APTT pO2 VBG pH VBG pCO2 VBG HCO3 VBG Total CO2 VBG O2 Sat (Calc) VBG Base Excess VBG Potassium Sodium Chloride Glucose Lactate Potassium Carbon Dioxide Anion Gap BUN Creatinine Est GFR ( Amer) Est GFR (Non-Af Amer) POC Glucose (mg/dL) Random Glucose Calcium Phosphorus Magnesium Total Bilirubin AST ALT Alkaline Phosphatase Total Protein Albumin Globulin Albumin/Globulin Ratio Venous Blood Potassium Urine Color [place] Urine Clarity Hazy Urine pH 5.0 Ur Specific [place] 1.015 Urine Protein 1+ H Urine Glucose (UA) Normal Urine Ketones Negative Urine Blood 1+ H Urine Nitrate Negative Urine Bilirubin Negative Urine Urobilinogen Normal Ur Leukocyte Esterase Neg Urine WBC (Auto) < 1 Urine RBC (Auto) 10 H Ur Squamous Epith Cells < 1 Amorphous Sediment Few H Urine Bacteria Rare Hyaline Casts 3-5 H Stool Occult Blood Digoxin 0.6 L Blood Type AB POSITIVE Assessment & Plan - Assessment and Plan (Free Text) Assessment: 73 y/o female w/ hx of C diff colitis presenting with septic shock and mul tiorgan system failure Plan: -CT scan with po contrast if possible when patient is stable for transport -no gross free air under diaphragm on CXR to suggest perforation -aggressive resuscitation with IVF and blood products -INR reversal -broad spectrum abx, cover Cdiff -f/u cultures, stool sputum and blood -recommend maintain NGT on LCWS -vazquez placement for strict Is&Os -no acute surgical intervention at this time -will cont to follow -d/w Dr. Sloane Jimenez PGY4
[2019-02-07 23:02] LABS: LYMPHOCYTE 7 % (20-40); MONOCYTE 5 % (0-10); NEUTROPHIL 88 % (50-75); TOTAL CELLS COUNTED 100
[2019-02-07 23:04] LABS: PLATELET ESTIMATE NORMAL (NORMAL)
[2019-02-07 23:05] LABS: ANISOCYTOSIS SLIGHT; BURR CELLS SLIGHT
[2019-02-07 23:08] LABS: HYPOCHROMIC SLIGHT
[2019-02-07 23:14] LABS: POLYCHROMIC SLIGHT
[2019-02-07] MEDS ORDERED: Sodium Chloride 0.9% 1,000 ML IV SCH (23:15)
[2019-02-08] MEDS ORDERED: metroNIDAZOLE IV 500 mg/100 ml 500 MG/100 ML BAG IVPB SCH (01:15)
[2019-02-08] MEDS ORDERED: Piperacill/Tazo 2.25gm in Dex 2.25 GM/50 ML BAG IVPB SCH (03:00)
[2019-02-08] MEDS ORDERED: DOPamine 400mg/250ml D5W 400 MG/250 ML BAG IV PRN ×2 (04:19→05:48)
[2019-02-08] MEDS ORDERED: Sodium Bicarbonate (8.4%) 50 mEq Vial IVP ONE ×2 (05:49→05:50)
[2019-02-08] MEDS ORDERED: Sodium Bicarbonate 8.4% 100 MEQ in Dextrose 5% In Water 1,000 ML IV SCH (06:00)
[2019-02-08] MEDS ORDERED: Sodium Bicarbonate (8.4%) 50 mEq Vial ONE (06:03)
[2019-02-08 06:14] LABS: ARTERIAL BLOOD GAS HCO3 10.6 mmol/L (21-28); ARTERIAL BLOOD GAS HEMOGLOBIN 8.7 g/dL (11.7-17.4); ARTERIAL BLOOD GAS O2 SAT 69.3 % (95-98); ARTERIAL BLOOD GAS PCO2 75 mm/Hg (35-45); ARTERIAL BLOOD GAS PO2 41 mm/Hg (80-100)
--- NOTE | 2019-02-08 07:37 | RAD ---
Date of service: 02/07/2019 HISTORY: code sepsis COMPARISON: Portable chest 02/07/2019 8:51 p.m.. TECHNIQUE: 1 view obtained. FINDINGS: LUNGS: An endotracheal tube is in place terminating 7 mm above the esther. Retraction 2-3 cm is advised follow-up by confirmation radiography. Full patchy infiltrates identified at the perihilar right apical distribution with borderline left Sandra hilar patchy density present. Linear atelectasis or fibrosis seen at the left base once again. PLEURA: No significant pleural effusion identified, no pneumothorax apparent. CARDIOVASCULAR: Calcific atherosclerotic changes are seen related to the thoracic aorta. Prominent cardiac silhouette stable. No definite pulmonary vascular congestion. OSSEOUS STRUCTURES: No significant abnormalities. VISUALIZED UPPER ABDOMEN: Normal. OTHER FINDINGS: None. IMPRESSION: ET tube terminates less than 1 cm above the esther. Retraction 2-3 cm is advised follow-up by confirmation radiography. Interval patchy infiltrate right greater than left perihilar and right apical distributions. No pleural effusion or pneumothorax bilaterally. Linear atelectasis or fibrosis again seen left base. Stable cardiomegaly. No pulmonary vascular congestion.
[2019-02-08 07:57] VITALS: TEMP 95.2
--- NOTE | 2019-02-08 08:03 | RAD ---
Chest x-ray single frontal view HISTORY: Sepsis. COMPARISON: 12/22/2018 FINDINGS: Worsening now small to moderate loculated left pleural effusion. Right hilar prominence with consolidative changes. Patchy opacification in the left mid to lower lung zone. Biapical pleural thickening with upper lobe granulomatous changes. Mild nodularity at the lateral aspect of the right base. Atherosclerotic calcification at the aortic knob. Enlarged ectatic aorta. Cardiomegaly. Degenerative changes in the spine and shoulders. Impression: Worsening now small to moderate loculated left pleural effusion. Right hilar prominence with consolidative changes. Patchy opacification in the left mid to lower lung zone. Biapical pleural thickening with upper lobe granulomatous changes. Mild nodularity at the lateral aspect of the right base. Atherosclerotic calcification at the aortic knob. Enlarged ectatic aorta. Cardiomegaly.
--- NOTE | 2019-02-08 08:11 | RAD ---
Chest x-ray single frontal view HISTORY: Respiratory failure. COMPARISON: 02/07/2019 FINDINGS: Endotracheal tube somewhat low lying approximately 8 millimeters above the esther. Retraction approximately 1 centimeter may be helpful. NG tube with tip in the distal esophagus. Advancement to the stomach is recommended. Worsening airspace consolidative opacification throughout the right upper to mid lung zone as well as the left mid lung zone. Enlarged ectatic aorta. Atherosclerotic calcification at the aortic knob. Cardiomegaly. Degenerative changes in the spine and shoulders. Impression: Worsening airspace consolidative opacification in both lungs. Recommended adjustment of endotracheal and NG tubes as described above.
[2019-02-08 08:16] VITALS: BP 49/19; PULSE 54; RESP 14; O2SAT 77
--- NOTE | 2019-02-08 09:29 | CP.PCM.PRO ---
Pronouncement of Note - Clinical Findings Physical Exam: No Response Verbal/Painful Stimuli, Absent Peripheral Puls es{Carotid & Femoral}, Absent Heart & Breath Sounds, No Pupillary Light Reflex, No Corneal Reflex, Pupils Fixed & Dilated, Absence of Vital Signs - Pronouncement Time Time of Pronouncement of : 07:50 - Notifications Pronouncement Notifications: Family Notified, Atending Notified Hat Model Notified: Yes - Autopsy Autopsy Requested: Yes - [place] [id number]
--- NOTE | 2019-02-09 14:02 | CARD ---
APPROVED REPORT Date of service: 02/07/2019 EKG Measurement Heart [id number] P58 [id number] <Conclusion> Normal sinus rhythm Low voltage QRS Cannot rule out Anterior infarct, age undetermined Abnormal ECG
== END 2019-02-08 07:50 | DRG 871 ==
LOC: C.ER 18:57 → C.9E 21:30 → C.9I 22:17
PROVIDERS: ADMIT Internal Medicine; ATTEND Internal Medicine
PROC: 0BH17EZ Insertion of Endotracheal Airway into Trachea, Via Natural or Artificial Opening (ICD-10-PCS; principal; 2019-02-07)
PROC: 5A1945Z Respiratory Ventilation, 24-96 Consecutive Hours (ICD-10-PCS; 2019-02-07)
PROC: 06HY33Z Insertion of Infusion Device into Lower Vein, Percutaneous Approach (ICD-10-PCS; 2019-02-07)
DX: A41.9 Sepsis, unspecified organism (principal); R65.21 Severe sepsis with septic shock; K72.00 Acute and subacute hepatic failure without coma; D68.9 Coagulation defect, unspecified; I13.0 Hypertensive heart and chronic kidney disease with heart failure and stage 1 through stage 4 chronic kidney disease, or unspecified chronic kidney disease; N17.9 Acute kidney failure, unspecified; K92.1 Melena; E86.0 Dehydration; F03.90 Unspecified dementia, unspecified severity, without behavioral disturbance, psychotic disturbance, mood disturbance, and anxiety; E11.22 Type 2 diabetes mellitus with diabetic chronic kidney disease; I50.9 Heart failure, unspecified; I48.91 Unspecified atrial fibrillation; N18.3 Chronic kidney disease, stage 3 (moderate); Z96.649 Presence of unspecified artificial hip joint; K52.9 Noninfective gastroenteritis and colitis, unspecified; E03.9 Hypothyroidism, unspecified; E78.00 Pure hypercholesterolemia, unspecified; Z86.19 Personal history of other infectious and parasitic diseases; Z86.73 Personal history of transient ischemic attack (TIA), and cerebral infarction without residual deficits